=== PATIENT | male | born 1975 | race Hispanic/Latino ===

== ENCOUNTER 2017-07-07 23:27 | Inpatient (IN) | payer OTHER ==
[2017-07-07] MEDS ORDERED: MORPHINE 4 MG/ML SYR ONE (23:57)
[2017-07-07] MEDS ORDERED: ONDANSETRON 4 MG/2 ML VIAL ONE (23:57)
[2017-07-07] MEDS ORDERED: NA CHLORIDE 0.9% 1,000 ML ONE (23:58)
[2017-07-08 00:02] LABS: Absolute Lymphocytes (CBC) 2.2 K/uL (0.7-4.9); Absolute Monocytes 0.5 K/uL (0.1-1.3); Absolute Neutrophil 6.3 K/uL (1.8-8.0); Basophils % 0.6 % (0-1.3); Eosinophils % 0.9 % (0-4.4); Lymphocytes % 24.5 % (15.3-44.8); MCV 81.4 fL (80-100); MPV 10.4 fL (7.6-11.3); Monocytes % 5.4 % (3.3-12.3); RBC Red Blood Cell Count 4.92 M/uL (4.33-5.43)
[2017-07-08 00:17] LABS: Bicarbonate 23 mEq/L (21-31); Glucose Level 270 mg/dL (65-120); Lipase 84 U/L (22-51); Potassium 3.9 mEq/L (3.6-5.0); Sodium Level 132 mEq/L (135-145)
[2017-07-08 00:25] LABS: ALT/SGPT 49 IU/L (10-60); AST/SGOT 32 IU/L (10-42); Albumin 4.5 g/dL (3.2-5.5); Alkaline Phosphatase 52 IU/L (42-121); BUN Blood Urea Nitrogen 18 mg/dL (6-20); Bilirubin Direct < 0.1 mg/dL (0-0.2); Bilirubin Total 0.5 mg/dL (0.3-1.2); Protein, Total 7.8 g/dL (6.0-8.3)
[2017-07-08 00:26] LABS: Amylase Level 222 U/L (28-100)
[2017-07-08 02:08] LABS: Urine Blood NEGATIVE (NEG); Urine Glucose 2+ (NEG); Urine Protein NEGATIVE (NEG); Urine pH 5.5 (5.0-7.0)
[2017-07-08] MEDS ORDERED: ONDANSETRON 4 MG/2 ML VIAL ONE (02:27)
[2017-07-08] MEDS ORDERED: MORPHINE 4 MG/ML SYR ONE (02:27)
[2017-07-08] MEDS ORDERED: NA CHLORIDE 0.9% 1,000 ML ONE (02:27)
--- NOTE | 2017-07-08 02:27 | EDPHYS ---
Physician Documentation [facility] Name: Javier Rutherford Age: 42 yrs Sex: Male : 1975 Arrival Date: 07/07/2017 Time: 23:28 Bed 26 Private MD: ED Physician Marek Rabago HPI: 07/07 23:44 This 42 yrs old Male presents to ER via Ambulatory with complaints of kb Abdominal Pain. 23:44 The patient presents with abdominal pain in the right upper quadrant. Onset: The kb symptoms/episode began/occurred today. The symptoms do not radiate. Associated signs and symptoms: none. The symptoms are described as constant, sharp. Modifying factors: The symptoms are alleviated by nothing, the symptoms are aggravated by nothing. Severity of pain: At its worst the pain was moderate in the emergency department the pain is unchanged. The patient has experienced similar episodes in the past, several times. The patient has not recently seen a physician. Historical: - Allergies: 23:39 No Known Allergies; aa1 - Home Meds: 23:39 fenofibrate 200 mg Oral tab 1 cap once daily [Active]; metformin 1,000 mg oral tab 1 aa1 tab 2 times per day [Active]; Tresiba FlexTouch U-100 subcutaneous subcutaneous [Active]; - PMHx: 23:39 Diabetes - NIDDM; fatty liver; Hyperlipidemia; Pancreatitis; aa1 - PSHx: 23:39 Hernia repair; Cholecystectomy; aa1 - Immunization history:: Flu vaccine is up to date. - Social history:: Smoking status: Patient/guardian denies using tobacco. ROS: 23:43 Constitutional: Negative for fever, chills, and weight loss, Cardiovascular: Negative kb for chest pain, palpitations, and edema, Respiratory: Negative for shortness of breath, cough, wheezing, and pleuritic chest pain, Back: Negative for injury and pain, : Negative for injury, bleeding, discharge, and swelling, MS/Extremity: Negative for injury and deformity, Skin: Negative for injury, rash, and discoloration, Neuro: Negative for headache, weakness, numbness, tingling, and seizure. 23:43 Abdomen/GI: Positive for abdominal pain, Negative for nausea, vomiting, and diarrhea, constipation, abdominal cramps, abdominal distension, anorexia. Exam: 23:43 Constitutional: This is a well developed, well nourished patient who is awake, alert, kb and in no acute distress. Head/Face: Normocephalic, atraumatic. Chest/axilla: Normal chest wall appearance and motion. Nontender with no deformity. No lesions are appreciated. Cardiovascular: Regular rate and rhythm with a normal S1 and S2. No gallops, murmurs, or rubs. Normal PMI, no JVD. No pulse deficits. Respiratory: Lungs have equal breath sounds bilaterally, clear to auscultation and percussion. No rales, rhonchi or wheezes noted. No increased work of breathing, no retractions or nasal flaring. Skin: Warm, dry with normal turgor. Normal color with no rashes, no lesions, and no evidence of cellulitis. MS/ Extremity: Pulses equal, no cyanosis. Neurovascular intact. Full, normal range of motion. Neuro: Awake and alert, GCS 15, oriented to person, place, time, and situation. Cranial nerves II-XII grossly intact. Motor strength 5/5 in all extremities. Sensory grossly intact. Cerebellar exam normal. Normal gait. 23:43 Abdomen/GI: Inspection: abdomen appears normal, Bowel sounds: normal, in all quadrants, Palpation: soft, in all quadrants, moderate abdominal tenderness, in the right upper quadrant. Vital Signs: 23:39 BP 161 / 97; Pulse 81; Resp 18; Temp 98.3; Pulse Ox 100% on R/A; Weight 99.79 kg; aa1 Height 5 ft. 8 in. (172.72 cm); Pain 10/10; 05 00:09 BP 132 / 86; Pulse 85; Resp 18; Pulse Ox 97% on R/A; tl3 01:00 BP 124 / 84; Pulse 79; Resp 17; Pulse Ox 98% on R/A; rk2 02:35 BP 129 / 92; Pulse 79; Resp 18; Pulse Ox 99% ; rk2 03:06 BP 121 / 77; Pulse 77; Resp 17; Pulse Ox 98% on R/A; rk2 07/07 23:39 Body Mass Index 33.45 (99.79 kg, 172.72 cm) aa1 MDM: 07/07 23:39 Patient medically screened. kb 23:43 Data reviewed: vital signs, nurses notes. Data interpreted: Pulse oximetry: on room air kb is 100 %. Interpretation: normal. 07/08 02:21 Counseling: I had a detailed discussion with the patient and/or guardian regarding: the kb historical points, exam findings, and any diagnostic results supporting the discharge/admit diagnosis, lab results, radiology results, the need for further work-up and treatment in the hospital. 02:25 Physician consultation: Yamil Scott MD was contacted at 02:25, regarding admission, kb to the medical/surgical unit. patient's condition, and will see patient in ED, shortly. 07/07 23:39 Order name: Creatinine for Radiology; Complete Time: 00:27 kb 07/07 23:39 Order name: Amylase, Serum; Complete Time: 00:27 kb 07/07 23:39 Order name: Basic Metabolic Panel; Complete Time: 00:27 kb 07/07 23:39 Order name: CBC with Diff; Complete Time: 00:05 kb 07/07 23:39 Order name: Hepatic Function; Complete Time: 00:27 kb 07/07 23:39 Order name: Lipase; Complete Time: 00:27 kb 07/07 23:42 Order name: CT Abd/Pelvis - W/Contrast; Complete Time: 15:10 kb 07/08 01:51 Order name: Urine Dipstick--Ancillary (enter results); Complete Time: 02:12 em1 07/08 02:25 Order name: Lipid Profile; Complete Time: 15:10 kb 07/08 02:27 Order name: Triglycerides Level EDOK 07/07 23:39 Order name: IV Saline Lock; Complete Time: 23:49 kb 07/07 23:39 Order name: Labs collected and sent; Complete Time: 23:49 kb 07/07 23:39 Order name: Urine Dipstick-Ancillary (obtain specimen); Complete Time: 01:49 kb Administered Medications: 00:07 Drug: morphine 4 mg Route: IVP; Infused Over: 3 mins; Site: left antecubital; tl3 02:22 Follow up: Response: No adverse reaction rk2 00:08 Drug: NS 0.9% 1000 ml Route: IV; Rate: 1000 ml; Site: left antecubital; Delivery: tl3 Primary tubing; 00:08 Drug: Zofran 4 mg Route: IVP; Infused Over: 2 mins; Site: left antecubital; tl3 02:22 Follow up: Response: No adverse reaction rk2 02:33 Drug: NS 0.9% 1000 ml Route: IV; Rate: 125 ml/hr; Site: left antecubital; rk2 03:23 Follow up: IV Status: Infusion continued upon admission rk2 02:34 Drug: morphine 4 mg Route: IVP; Site: left antecubital; rk2 03:23 Follow up: Response: No adverse reaction; Pain is decreased rk2 02:34 Drug: Zofran 4 mg Route: IVP; Site: left antecubital; rk2 03:22 Follow up: Response: No adverse reaction; Pain is decreased rk2 Disposition: 07/07 23:47 Co-signature as Attending Physician, Marek Rabago MD. milad Disposition: 07/08/17 02:26 Hospitalization ordered by Yamil Scott for Inpatient Admission. Preliminary diagnosis is Acute pancreatitis. - Bed requested for Telemetry/MedSurg (Inpatient). - Status is Inpatient Admission. rk2 - Condition is Stable. - Problem is new. - Symptoms are unchanged. UTI on Admission? No Signatures: Dispatcher [employer] EDMS Sarah Costa, TRENCH DIGGER-C TRENCH DIGGER-Ckb Deborah Martins RN RN Carley Maier RN RN aa1 Marek Rabago MD MD pkl Anais Harper RN RN rk2 Tess Vallejo RN RN tl3
--- NOTE | 2017-07-08 02:27 | ER ---
Nurse's Notes [facility] Name: Javier Rutherford Age: 42 yrs Sex: Male : 1975 Arrival Date: 07/07/2017 Time: 23:28 Bed 26 Private MD: Diagnosis: Acute pancreatitis Presentation: 07/07 23:36 Presenting complaint: Patient states: upper abd pain since this afternoon. Reports hx aa1 of pancreatitis and feels like he's having another flare up. Transition of care: patient was not received from another setting of care. Onset of symptoms was July 07, 2017. Initial Sepsis Screen: Does the patient meet any 2 criteria? No. Patient's initial sepsis screen is negative. Does the patient have a suspected source of infection? No. Patient's initial sepsis screen is negative. Care prior to arrival: None. 23:36 Method Of Arrival: Ambulatory aa1 23:36 Acuity: HANY 3 aa1 Historical: - Allergies: 23:39 No Known Allergies; aa1 - Home Meds: 23:39 fenofibrate 200 mg Oral tab 1 cap once daily [Active]; metformin 1,000 mg oral tab 1 aa1 tab 2 times per day [Active]; Tresiba FlexTouch U-100 subcutaneous subcutaneous [Active]; - PMHx: 23:39 Diabetes - NIDDM; fatty liver; Hyperlipidemia; Pancreatitis; aa1 - PSHx: 23:39 Hernia repair; Cholecystectomy; aa1 - Immunization history:: Flu vaccine is up to date. - Social history:: Smoking status: Patient/guardian denies using tobacco. Screenin:46 Abuse screen: Denies threats or abuse. Nutritional screening: No deficits noted. tl3 Tuberculosis screening: No symptoms or risk factors identified. Fall Risk None identified. Assessment: 23:46 General: Appears distressed, uncomfortable, well groomed, well developed, well tl3 nourished, Behavior is cooperative, appropriate for age, anxious, restless. Pain: Complains of pain in right upper quadrant Pain currently is 10 out of 10 on a pain scale. Neuro: Level of Consciousness is awake, alert, obeys commands, Oriented to person, place, time, situation, Appropriate for age. Cardiovascular: No deficits noted. Heart tones S1 S2 present Patient's skin is warm and dry. Respiratory: Airway is patent Trachea midline Respiratory effort is even, unlabored, Respiratory pattern is regular, symmetrical. GI: Abdomen is round Bowel sounds present X 4 quads. Abdomen is tender to palpation in right upper quadrant and left upper quadrant. : No signs and/or symptoms were reported regarding the genitourinary system. EENT: No signs and/or symptoms were reported regarding the EENT system. Derm: No signs and/or symptoms reported regarding the dermatologic system. Musculoskeletal: No signs and/or symptoms reported regarding the musculoskeletal system. 07/08 00:09 Reassessment: Patient appears in no apparent distress at this time. No changes from tl3 previously documented assessment. Patient and/or family updated on plan of care and expected duration. Pain level reassessed. Patient is alert, oriented x 3, equal unlabored respirations, skin warm/dry/pink. fluids initiated, pt resting. 01:10 Reassessment: Pt. taken to CT by wheelchair. rk2 02:20 Reassessment: Pt. resting in room \T\ this time... c/o abd pain, same left upper quad rk2 pain that he has had. Denies N/V. Waiting on results. 03:31 Reassessment: Called report to receiving ARACELI Dixon. Pt. to be transported to room 431.rk2 Vital Signs: 07/07 23:39 BP 161 / 97; Pulse 81; Resp 18; Temp 98.3; Pulse Ox 100% on R/A; Weight 99.79 kg; aa1 Height 5 ft. 8 in. (172.72 cm); Pain 10/10; 07/08 00:09 BP 132 / 86; Pulse 85; Resp 18; Pulse Ox 97% on R/A; tl3 01:00 BP 124 / 84; Pulse 79; Resp 17; Pulse Ox 98% on R/A; rk2 02:35 BP 129 / 92; Pulse 79; Resp 18; Pulse Ox 99% ; rk2 03:06 BP 121 / 77; Pulse 77; Resp 17; Pulse Ox 98% on R/A; rk2 07/07 23:39 Body Mass Index 33.45 (99.79 kg, 172.72 cm) aa1 ED Course: 07/07 23:28 Patient arrived in ED. al2 23:38 Triage completed. aa1 23:39 Sarah Costa FNP-C is PHCP. kb 23:39 Marek Rabago MD is Attending Physician. kb 23:39 Arm band placed on right wrist. Patient placed in an exam room, on a stretcher. aa1 23:46 Tess Vallejo RN is Primary Nurse. tl3 23:46 Appears restless. Awaiting ED provider evaluation. tl3 23:46 Patient has correct armband on for positive identification. Placed in gown. Bed in low tl3 position. Call light in reach. Side rails up X 1. Warm blanket given. 23:46 No provider procedures requiring assistance completed. Inserted saline lock: 22 gauge tl3 in left antecubital area, using aseptic technique. Blood collected. 05 01:10 CT Abd/Pelvis - W/Contrast Sent. rk2 01:21 CT Abd/Pelvis - W/Contrast In Process Unspecified. EDMS 01:28 CT completed. Patient tolerated procedure well. Patient moved to CT via wheelchair. eh Patient moved back from CT. 02:26 Yamil Scott MD is Hospitalizing Provider. kb 02:43 Triglycerides Level Sent. rk2 03:34 Patient admitted, IV remains in place. rk2 Administered Medications: 00:07 Drug: morphine 4 mg Route: IVP; Infused Over: 3 mins; Site: left antecubital; tl3 02:22 Follow up: Response: No adverse reaction rk2 00:08 Drug: NS 0.9% 1000 ml Route: IV; Rate: 1000 ml; Site: left antecubital; Delivery: tl3 Primary tubing; 00:08 Drug: Zofran 4 mg Route: IVP; Infused Over: 2 mins; Site: left antecubital; tl3 02:22 Follow up: Response: No adverse reaction rk2 02:33 Drug: NS 0.9% 1000 ml Route: IV; Rate: 125 ml/hr; Site: left antecubital; rk2 03:23 Follow up: IV Status: Infusion continued upon admission rk2 02:34 Drug: morphine 4 mg Route: IVP; Site: left antecubital; rk2 03:23 Follow up: Response: No adverse reaction; Pain is decreased rk2 02:34 Drug: Zofran 4 mg Route: IVP; Site: left antecubital; rk2 03:22 Follow up: Response: No adverse reaction; Pain is decreased rk2 Outcome: 02:26 Decision to Hospitalize by Provider. kb 03:33 Condition: good rk2 03:33 Instructed on the need for admit. 03:34 Admitted to Med/surg accompanied by tech. rk2 03:40 Patient left the ED. rk2 Signatures: Dispatcher [employer] EDMS Sarah Costa, RUNNER WORKER-C RUNNER WORKER-CkCarley Rodgers, RN RN aa1 Herbert Sanabria Angelica al2 Kidder, Rhonda RN RN rk2 Tess Vallejo RN RN tl3
[2017-07-08 03:47] VITALS: O2SAT 98
[2017-07-08 03:48] LABS: HDL Cholesterol 32 mg/dL (27-67); LDL Cholesterol, Calculated ND (<130)
[2017-07-08] MEDS ORDERED: NA CHLORIDE 0.9% 1,000 ML IV SCH (04:00)
[2017-07-08 04:13] LABS: LDL, Direct 14 mg/dl (<130)
[2017-07-08] MEDS ORDERED: KETOROLAC 30 MG/ML INJ IV PRN (04:43)
[2017-07-08] MEDS ORDERED: D5 0.9 NS 1,000 ML IV SCH (05:00)
--- NOTE | 2017-07-08 05:00 | P.HP ---
Certification for Inpatient Patient admitted to: Inpatient With expected LOS: >2 Midnights Practitioner: I am a practitioner with admitting privileges, knowledge of patient current condition, hospital course, and medical plan of care. Services: Services provided to patient in accordance with Admission requirements found in Title 42 Section 412.3 of the Code of Federal Regulations Patient History Date of Service: 07/08/17 Reason for admission: acute pancreatitis History of Present Illness: Mr Garland is a 42 years old male with history of hypertriclyceridemia induce pancreatitis, DM II, who start yesterday afternoon, with epigastric pain, radiated to his left upper quadrant. He has had this pain in the past. It was associated with nausea, but not vomiting. The patient denied any alcohol intake. He also denied fever or chills, no diarrhea. At arrival the patient was very symptomatic for pain. CT abd/pelvis remarkable for acute pancreatitis, lipase and amylase elevated, triglycerides also elevated 2250. Allergies No Known Allergies Allergy (Verified 08/30/14 22:32) Home Medications: Metformin HCl [Glucophage] 1,000 mg PO BID 11/06/13 Fenofibrate [Tricor*] 160 mg PO DAILY #30 tab 11/18/16 Pantoprazole [Protonix Tab] 40 mg PO DAILY #30 tab 11/18/16 - Past Medical/Surgical History Diabetic: Yes -: pancreatitis -: hyperlipidemia -: DM2 -: pancreatic mass -: Cholecystectomy -: Hernia sx -: vasectomy - Family History Sister -: Diabetes, Cancer Mother -: Diabetes Brother -: GI disease, Diabetes Notes: Pancreatitis - Social History Alcohol use: No CD- Drugs: No Caffeine use: Yes Place of Residence: Home Review of Systems 10-point ROS is otherwise unremarkable Physical Examination - Vital Signs Temperature: 97.6 F Blood Pressure: 120/74 Pulse: 73 Respirations: 18 Pulse Ox (%): 98 - Physical Exam General: Alert, In no apparent distress HEENT: Atraumatic, PERRLA, Mucous membr. moist/pink, EOMI, Sclerae nonicteric Neck: Supple, 2+ carotid pulse no bruit, No LAD, Without JVD or thyroid abnormality Respiratory: Clear to auscultation bilaterally, Normal air movement Cardiovascular: Regular rate/rhythm, Normal S1 S2 Gastrointestinal: Hypoactive, Tenderness (epigastric and LUQ) Musculoskeletal: No tenderness Integumentary: No rashes Neurological: Normal speech, Normal strength at 5/5 x4 extr, Normal tone, Normal affect Lymphatics: No axilla or inguinal lymphadenopathy - Studies Laboratory Data (last 24 hrs) 07/07/17 23:50: WBC 9.1, Hgb 13.8, Hct 40.0, Plt Count 216 07/07/17 23:50: Sodium 132 L, Potassium 3.9, BUN 18, Creatinine 0.86, Glucose 270 H, Total Bilirubin 0.5, AST 32, ALT 49, Alkaline Phosphatase 52, Amylase 222 H*, Lipase 84 H 07/07/17 23:50: Creatinine 0.78 Assessment and Plan - Problems (Diagnosis) (1) hypertriglyceridemia induce pancreatitis Current Visit: Yes Status: Acute (2) Diabetes mellitus Onset Date: 11/14/16 Current Visit: No Status: Chronic Qualifiers: Diabetes mellitus type: type 2 Diabetes mellitus fpc insulin use: without marine oil terminal superintendent use Diabetes mellitus complication status: with unspecified complications Qualified Code(s): E11.8 - Type 2 diabetes mellitus with unspecified complications - Plan The patient will be admitted to the hospital due to hypertriclyceridemia induce pancreatitis. Will admit the patient to ICU, to start insulin drip, in order to decrease triglyceride levels below 500. Will continue fenofibrates. Continue symptomatic medication for pain and nausea. - Advance Directives Does patient have a Living Will: No Does patient have a Durable POA for Healthcare: No - Code Status/Comfort Care Code Status Assessed: Yes Code Status: Full Code
[2017-07-08] MEDS ORDERED: GLUCAGON 1 MG/VIAL IM PRN ×2 (05:10→05:36)
[2017-07-08] MEDS ORDERED: INSULIN -REGULAR HUMAN 50 UNIT/0.5 ML ML IV SCH (05:10)
[2017-07-08] MEDS ORDERED: D50W 25 GM/50 ML SYRINGE IV PRN (05:36)
[2017-07-08] MEDS: INSULIN -REGULAR HUMAN 50 UNIT/0.5 ML ML SQ SCH ×4 (05:50→23:39)
[2017-07-08] MEDS ORDERED: NA CHLORIDE 0.9% 100 ML ONE (06:27)
[2017-07-08] MEDS: INSULIN -REGULAR HUMAN 100 UNIT in NA CHLORIDE 0.9% 100 ML IV SCH ×3 (06:38→20:32)
--- NOTE | 2017-07-08 06:59 | RAD REPORT ---
EXAM DESCRIPTION: CT - Abdomen Pelvis W Contrast - 07/08/2017 4:07 am CLINICAL HISTORY: Abdominal pain, left upper quadrant pain, history of pancreatitis, diabetes, fatty liver disease, hernia repair and cholecystectomy. A preliminary written report was provided at the time of the study, and the report was reviewed prio r to final dictation. COMPARISON: CT study August 2016 TECHNIQUE: Biphasic, helical CT imaging of the abdomen and pelvis was performed following 100 ml non -ionic IV contrast. No oral contrast given. All CT scans are performed using dose optimization technique as appropriate and may include automated exposure control or mA/KV adjustment according to patient size. FINDINGS: No suspicious findings in the lung bases. Prominent diffuse fatty infiltration pattern again noted. No focal liver lesions seen. No splenomegal y or focal splenic finding. Cholecystectomy clips are present with no biliary tree dilatation. No gigi id or cystic pancreatic mass identified. There is a very subtle stranding or edema in the peripancrea tic fat near the body. Similar pattern was seen in 2017. A very mild acute pancreatitis would be poss ible ; however, this would need confirmation with abnormal lab values or matching clinical findings. Symmetric renal function is seen with no hydronephrosis or suspicious renal mass. No pyelonephritis o r acute renal parenchymal process. Urinary bladder, prostate gland and seminal vesicles normal. No dilated bowel loops. Moderate stool volume seen in otherwise unremarkable colon. No appendicitis. A few minimally prominent fluid-filled distal small bowel loops are present a few prominent proximal small bowel loops. Pattern is nonspecific but can indicate minimal enteritis. No free air, free fluid or other focal inflammatory stranding. No hernia, mass or bulky lymphadeno sofya. No adrenal abnormality. No suspicious bony findings. IMPRESSION: Trace amount of stranding is seen in the peripancreatic fat without solid or cystic panc reatic mass. Finding may reflect very early or mild pancreatitis, but this needs correlation with clinical present ation and laboratory findings. Diffuse fatty infiltration of the liver as previously noted. No focal liver lesions seen. Minimal prominence of small bowel loops. Small bowel enteritis is possible.
[2017-07-08] MEDS: ENOXAPARIN 40 MG/0.4 ML SQ SCH (08:38)
[2017-07-08] MEDS: FENOFIBRATE 160 MG TAB PO SCH (08:38)
[2017-07-08] MEDS: Morphine 2 MG/2 ML SYR IV PRN ×4 (09:58→22:33)
[2017-07-08] MEDS: D50W 25 GM/50 ML SYRINGE IV PRN ×7 (09:59→22:28)
[2017-07-08] MEDS: ONDANSETRON 4 MG/2 ML VIAL IV PRN ×2 (10:03→17:31)
[2017-07-08] MEDS ORDERED: DEXTROSE 10%-WATER 500 ML IV SCH (12:30)
[2017-07-08] MEDS: DEXTROSE 10%-WATER 500 ML IV SCH ×3 (13:35→20:33)
--- NOTE | 2017-07-08 13:57 | P.PN ---
Subjective Date of Service: 07/08/17 Chief Complaint: acute pancreatitis Subjective: Improving, Other (pain much better. denies any nausea or vomiting) Review of Systems 10-point ROS is otherwise unremarkable Physical Examination - Vital Signs Temperature: 97.6 F Blood Pressure: 108/65 Pulse: 71 Respirations: 14 Pulse Ox (%): 96 - Physical Exam General: Alert, In no apparent distress, Oriented x3 HEENT: Atraumatic, Normocephalic, EOMI Neck: Supple, JVD not distended, No Thyromegaly, No LAD Respiratory: Clear to auscultation bilaterally, Normal air movement Cardiovascular: No edema, Normal pulses, Regular rate/rhythm, Normal S1 S2 Gastrointestinal: Normal bowel sounds, Soft and benign, W/out hepatosplenomegaly , Tenderness (around epigastric region) Integumentary: No breakdown, No tenderness/swelling, No erythema, No warmth Neurological: Normal speech, Normal strength at 5/5 x4 extr - Studies Laboratory Data (last 24 hrs) 07/07/17 23:50: WBC 9.1, Hgb 13.8, Hct 40.0, Plt Count 216 07/07/17 23:50: Sodium 132 L, Potassium 3.9, BUN 18, Creatinine 0.86, Glucose 270 H, Total Bilirubin 0.5, AST 32, ALT 49, Alkaline Phosphatase 52, Amylase 222 H*, Lipase 84 H 07/07/17 23:50: Creatinine 0.78 Assessment And Plan - Current Problems (Diagnosis) (1) Acute pancreatitis Onset Date: 03/21/14 Current Visit: No Status: Acute Qualifiers: Pancreatitis type: other Acute pancreatitis complication: no infection or necrosis Qualified Code(s): K85.80 - Other acute pancreatitis without necrosis or infection (2) hypertriglyceridemia induce pancreatitis Onset Date: 07/08/17 Current Visit: Yes Status: Acute (3) Hypertriglyceridemia Onset Date: 11/14/16 Current Visit: No Status: Chronic - Plan continue insulin gtt at 0.1units/kg/hour continue to monitor blood glucose q hour change IV fluid to d10 at current rate check TG level [id number], goal is <500 will d/c insulin and continue statins continue IV hydration switch to morphin po anti emetics prn Discharge Plan: Home - Code Status/Comfort Care Code Status Assessed: Yes Code Status: Full Code Physician Review: Patient Assessed, Agree with Above Assessment and Plan Time Spent Managing PTS Care (In Minutes): 30
[2017-07-08 16:14] LABS: LDL, Direct 43 mg/dl (<130)
[2017-07-09] MEDS: D50W 25 GM/50 ML SYRINGE IV PRN ×5 (00:42→10:57)
[2017-07-09] MEDS: DEXTROSE 10%-WATER 500 ML IV SCH ×4 (00:43→12:41)
[2017-07-09 02:52] LABS: LDL, Direct 63 mg/dl (<130)
[2017-07-09 05:47] LABS: ALT/SGPT 95 IU/L (10-60); AST/SGOT 90 IU/L (10-42); Albumin 3.5 g/dL (3.2-5.5); Alkaline Phosphatase 39 IU/L (42-121); Amylase Level 59 U/L (28-100); BUN Blood Urea Nitrogen 8 mg/dL (6-20); Bicarbonate 26 mEq/L (21-31); Bilirubin Total 0.5 mg/dL (0.3-1.2); Glucose Level 125 mg/dL (65-120); Lipase 26 U/L (22-51); Magnesium 1.9 mg/dL (1.8-2.5); Protein, Total 6.3 g/dL (6.0-8.3); Sodium Level 138 mEq/L (135-145)
[2017-07-09] MEDS: INSULIN -REGULAR HUMAN 50 UNIT/0.5 ML ML SQ SCH ×4 (05:58→21:00)
[2017-07-09 06:35] LABS: Absolute Lymphocytes (CBC) 1.2 K/uL (0.7-4.9); Absolute Monocytes 0.5 K/uL (0.1-1.3); Absolute Neutrophil 3.8 K/uL (1.8-8.0); Basophils % 0.5 % (0-1.3); Eosinophils % 2.5 % (0-4.4); Hematocrit 35.4 % (39.6-49.0); Lymphocytes % 21.8 % (15.3-44.8); MCH 27.1 pg (27.0-35.0); MPV 10.1 fL (7.6-11.3); Monocytes % 8.2 % (3.3-12.3); RBC Red Blood Cell Count 4.32 M/uL (4.33-5.43)
[2017-07-09] MEDS: ENOXAPARIN 40 MG/0.4 ML SQ SCH (08:34)
[2017-07-09] MEDS: KCL 20 MEQ/100 mL IVPB 20 MEQ/100 ML BAG IV SCH ×2 (08:34→12:43)
[2017-07-09] MEDS: FENOFIBRATE 160 MG TAB PO SCH (08:34)
[2017-07-09] MEDS: ONDANSETRON 4 MG/2 ML VIAL IV PRN (08:49)
[2017-07-09] MEDS: Morphine 2 MG/2 ML SYR IV PRN ×4 (08:49→22:56)
--- NOTE | 2017-07-09 10:52 | P.PN ---
Subjective Date of Service: 07/09/17 Chief Complaint: acute pancreatitis Subjective: Improving (pain scale at 5/10) Review of Systems 10-point ROS is otherwise unremarkable Physical Examination - Vital Signs Temperature: 97.7 F Blood Pressure: 117/81 Pulse: 65 Respirations: 13 Pulse Ox (%): 99 - Physical Exam General: Alert, In no apparent distress, Oriented x3 HEENT: Atraumatic, Normocephalic, PERRLA Neck: Supple, JVD not distended, No Thyromegaly, No LAD Respiratory: Clear to auscultation bilaterally, Normal air movement Cardiovascular: No edema, Normal pulses, Regular rate/rhythm, Normal S1 S2, No gallops, No rubs, No murmurs Gastrointestinal: Normal bowel sounds, Soft and benign, Non-distended, W/out hepatosplenomegaly, No ascites, No tenderness, No masses, No rebound, No guarding Musculoskeletal: No clubbing, No swelling, No contractures, No erythema, No tenderness, No warmth Assessment And Plan - Current Problems (Diagnosis) (1) Acute pancreatitis Onset Date: 03/21/14 Current Visit: No Status: Acute Plan: start clear liquids continue to monitor TG level continue insulin gtt until TG <500 continue hypoglycemic protocol pain control IV Hydration Qualifiers: Pancreatitis type: other Acute pancreatitis complication: no infection or necrosis Qualified Code(s): K85.80 - Other acute pancreatitis without necrosis or infection (2) hypertriglyceridemia induce pancreatitis Onset Date: 07/08/17 Current Visit: Yes Status: Acute (3) Hypertriglyceridemia Onset Date: 11/14/16 Current Visit: No Status: Chronic Plan: continue Statin - Plan continue insulin gtt at 0.1units/kg/hour continue to monitor blood glucose q hour change IV fluid to d10 at current rate check TG level [id number], goal is <500 will d/c insulin and continue statins continue IV hydration switch to morphin po anti emetics prn Discharge Plan: Home Plan to discharge in: 48 Hours - Code Status/Comfort Care Code Status Assessed: Yes Code Status: Full Code Physician Review: Patient Assessed, Agree with Above Assessment and Plan Time Spent Managing PTS Care (In Minutes): 35
[2017-07-09 11:35] LABS: Urine Appearance CLEAR; Urine Bilirubin NEGATIVE (NEG); Urine Blood NEGATIVE (NEG); Urine Color YELLOW; Urine Glucose TRACE (NEG); Urine Protein NEGATIVE (NEG); Urine Specific Gravity <=1.005 (1.005-1.030); Urine Urobilinogen 0.2 mg/dL (0.2-1.0)
[2017-07-09 11:38] LABS: Urine Microscopic Reflex NO UMIC
[2017-07-09] MEDS: INSULIN -REGULAR HUMAN 100 UNIT in NA CHLORIDE 0.9% 100 ML IV SCH (13:34)
[2017-07-09 15:55] LABS: LDL, Direct 94 mg/dl (<130)
[2017-07-09] MEDS ORDERED: D5 0.45 NS 1,000 ML IV SCH (16:00)
[2017-07-09] MEDS: D5W 1,000 ML IV SCH (17:11)
[2017-07-10] MEDS: D5W 1,000 ML IV SCH ×4 (01:00→19:54)
[2017-07-10] MEDS: Morphine 2 MG/2 ML SYR IV PRN ×4 (02:56→19:53)
[2017-07-10 06:00] LABS: LDL, Direct 125 mg/dl (<130)
[2017-07-10] MEDS: INSULIN -REGULAR HUMAN 50 UNIT/0.5 ML ML SQ SCH ×4 (07:30→21:00)
[2017-07-10] MEDS: ENOXAPARIN 40 MG/0.4 ML SQ SCH (07:53)
[2017-07-10] MEDS: FENOFIBRATE 160 MG TAB PO SCH (07:53)
[2017-07-10 15:15] LABS: LDL, Direct 122 mg/dl (<130)
--- NOTE | 2017-07-10 17:27 | P.PN ---
Subjective Date of Service: 07/10/17 Chief Complaint: acute pancreatitis Subjective: Improving Review of Systems 10-point ROS is otherwise unremarkable Physical Examination - Vital Signs Temperature: 97.6 F Blood Pressure: 132/86 Pulse: 81 Respirations: 15 Pulse Ox (%): 100 - Physical Exam General: Alert, In no apparent distress, Oriented x3, Cooperative HEENT: Atraumatic, Normocephalic, PERRLA Neck: Supple, JVD not distended, No Thyromegaly, No LAD Respiratory: Clear to auscultation bilaterally, Normal air movement Cardiovascular: No edema, Normal pulses, Regular rate/rhythm, Normal S1 S2, No gallops, No rubs, No murmurs Gastrointestinal: Normal bowel sounds, Soft and benign, Non-distended, W/out hepatosplenomegaly, No ascites, No tenderness, No masses, No rebound, No guarding Musculoskeletal: No clubbing, No swelling, No contractures, No erythema, No tenderness, No warmth Neurological: Normal gait, Normal speech, Normal strength at 5/5 x4 extr, Normal tone Assessment And Plan - Current Problems (Diagnosis) (1) Acute pancreatitis Onset Date: 03/21/14 Current Visit: No Status: Acute Plan: continue clear liquids advance diet continue to monitor TG level continue statin pain control IV Hydration Qualifiers: Pancreatitis type: other Acute pancreatitis complication: no infection or necrosis Qualified Code(s): K85.80 - Other acute pancreatitis without necrosis or infection (2) Hypertriglyceridemia Onset Date: 11/14/16 Current Visit: No Status: Chronic Plan: continue tricor Discharge Plan: Home Plan to discharge in: 48 Hours Physician Review: Patient Assessed, Agree with Above Assessment and Plan Time Spent Managing PTS Care (In Minutes): 30
[2017-07-11] MEDS: Morphine 2 MG/2 ML SYR IV PRN ×4 (00:51→21:15)
[2017-07-11 04:35] LABS: LDL, Direct 107 mg/dl (<130)
[2017-07-11] MEDS: INSULIN -REGULAR HUMAN 50 UNIT/0.5 ML ML SQ SCH ×4 (07:30→21:00)
[2017-07-11] MEDS: D5W 1,000 ML IV SCH ×2 (09:00→16:52)
[2017-07-11] MEDS: ONDANSETRON 4 MG/2 ML VIAL IV PRN ×2 (09:01→21:17)
[2017-07-11] MEDS: ENOXAPARIN 40 MG/0.4 ML SQ SCH (09:01)
[2017-07-11] MEDS: FENOFIBRATE 160 MG TAB PO SCH (09:01)
--- NOTE | 2017-07-11 12:48 | P.PN ---
Subjective Date of Service: 07/11/17 Chief Complaint: acute pancreatitis Subjective: No new changes (abdominal pain still at 5/10.) Review of Systems 10-point ROS is otherwise unremarkable Physical Examination - Vital Signs Temperature: 98.4 F Blood Pressure: 94/62 Pulse: 66 Respirations: 18 Pulse Ox (%): 98 - Physical Exam General: Alert, In no apparent distress, Oriented x3 HEENT: Atraumatic, Normocephalic Neck: Supple, JVD not distended, No Thyromegaly, No LAD Respiratory: Clear to auscultation bilaterally, Normal air movement Cardiovascular: No edema, Normal pulses, Regular rate/rhythm, Normal S1 S2 Gastrointestinal: Normal bowel sounds, Soft and benign, No ascites, No masses, No rebound, No guarding, Tenderness (more qround the RUQ and LUQ) Musculoskeletal: No clubbing, No swelling, No contractures, No erythema, No tenderness Neurological: Normal speech, Normal strength at 5/5 x4 extr, Normal tone, Sensation intact Assessment And Plan - Current Problems (Diagnosis) (1) Acute pancreatitis Onset Date: 03/21/14 Current Visit: No Status: Acute Plan: TG level remains elevated npo for now continue to monitor TG level continue tricor pain control IV Hydration Qualifiers: Pancreatitis type: other Acute pancreatitis complication: no infection or necrosis Qualified Code(s): K85.80 - Other acute pancreatitis without necrosis or infection (2) Hypertriglyceridemia Onset Date: 11/14/16 Current Visit: No Status: Chronic Plan: continue tricor - Plan continue insulin gtt at 0.1units/kg/hour continue to monitor blood glucose q hour change IV fluid to d10 at current rate check TG level [id number], goal is <500 will d/c insulin and continue statins continue IV hydration switch to morphin po anti emetics prn Physician Review: Patient Assessed, Agree with Above Assessment and Plan Time Spent Managing PTS Care (In Minutes): 25
[2017-07-11 15:14] LABS: LDL, Direct 114 mg/dl (<130)
[2017-07-12] MEDS: D5W 1,000 ML IV SCH ×3 (00:38→17:00)
[2017-07-12] MEDS: Morphine 2 MG/2 ML SYR IV PRN ×3 (01:39→20:27)
[2017-07-12] MEDS: INSULIN -REGULAR HUMAN 50 UNIT/0.5 ML ML SQ SCH ×4 (07:30→21:00)
[2017-07-12] MEDS: ENOXAPARIN 40 MG/0.4 ML SQ SCH (08:33)
[2017-07-12] MEDS: FENOFIBRATE 160 MG TAB PO SCH (08:33)
[2017-07-12] MEDS: ONDANSETRON 4 MG/2 ML VIAL IV PRN (08:38)
[2017-07-12] MEDS ORDERED: HYDROCODONE/APAP 5/325 MG TAB PO PRN (08:44)
[2017-07-12 09:38] LABS: Absolute Lymphocytes (CBC) 1.4 K/uL (0.7-4.9); Absolute Monocytes 0.4 K/uL (0.1-1.3); Absolute Neutrophil 3.1 K/uL (1.8-8.0); Basophils % 0.3 % (0-1.3); Eosinophils % 2.4 % (0-4.4); Hematocrit 38.9 % (39.6-49.0); Lymphocytes % 27.2 % (15.3-44.8); MCH 27.2 pg (27.0-35.0); MCV 82.7 fL (80-100); MPV 9.4 fL (7.6-11.3); Monocytes % 8.1 % (3.3-12.3)
[2017-07-12 09:53] LABS: Potassium 4.2 mEq/L (3.6-5.0)
[2017-07-12 09:59] LABS: Bilirubin Total 1.2 mg/dL (0.3-1.2); Protein, Total 7.3 g/dL (6.0-8.3)
--- NOTE | 2017-07-12 13:19 | P.PN ---
Subjective Date of Service: 07/12/17 Chief Complaint: acute pancreatitis Subjective: No new changes (still with some abdominal pain) Review of Systems 10-point ROS is otherwise unremarkable Physical Examination - Vital Signs Temperature: 98 F Blood Pressure: 116/71 Pulse: 73 Respirations: 16 Pulse Ox (%): 99 - Physical Exam General: Alert, In no apparent distress, Oriented x3 HEENT: Atraumatic, Normocephalic, PERRLA Neck: Supple, 2+ carotid pulse no bruit, No Thyromegaly, No LAD Respiratory: Clear to auscultation bilaterally, Normal air movement Cardiovascular: No edema, Regular rate/rhythm, Normal S1 S2, No gallops, No rubs , No murmurs Gastrointestinal: Normal bowel sounds, Soft and benign, Non-distended, W/out hepatosplenomegaly, No ascites, No tenderness, No masses, No rebound, No guarding Neurological: Normal gait, Normal speech, Normal strength at 5/5 x4 extr, Normal tone Assessment And Plan - Current Problems (Diagnosis) (1) Acute pancreatitis Onset Date: 03/21/14 Current Visit: No Status: Acute Plan: TG level remains elevated npo for now continue tricor pain control IV Hydration Qualifiers: Pancreatitis type: other Acute pancreatitis complication: no infection or necrosis Qualified Code(s): K85.80 - Other acute pancreatitis without necrosis or infection (2) Hypertriglyceridemia Onset Date: 11/14/16 Current Visit: No Status: Chronic Plan: continue tricor - Plan continue insulin gtt at 0.1units/kg/hour continue to monitor blood glucose q hour change IV fluid to d10 at current rate check TG level [id number], goal is <500 will d/c insulin and continue statins continue IV hydration switch to morphin po anti emetics prn Physician Review: Patient Assessed, Agree with Above Assessment and Plan Time Spent Managing PTS Care (In Minutes): 25
[2017-07-13] MEDS: Morphine 2 MG/2 ML SYR IV PRN (00:20)
[2017-07-13] MEDS: D5W 1,000 ML IV SCH ×4 (00:21→23:42)
[2017-07-13] MEDS: INSULIN -REGULAR HUMAN 50 UNIT/0.5 ML ML SQ SCH ×4 (07:30→20:54)
[2017-07-13] MEDS: FENOFIBRATE 160 MG TAB PO SCH (08:23)
[2017-07-13] MEDS: ENOXAPARIN 40 MG/0.4 ML SQ SCH (08:24)
--- NOTE | 2017-07-13 13:35 | P.PN ---
Subjective Date of Service: 07/13/17 Chief Complaint: acute pancreatitis Subjective: Improving (abdominal pain improved to 2/10. minimla nausea) Review of Systems 10-point ROS is otherwise unremarkable Physical Examination - Vital Signs Temperature: 97.4 F Blood Pressure: 107/64 Pulse: 77 Respirations: 18 Pulse Ox (%): 96 - Physical Exam General: Alert, In no apparent distress, Oriented x3 HEENT: Atraumatic, Normocephalic, PERRLA Neck: Supple, JVD not distended, No Thyromegaly, No LAD Respiratory: Clear to auscultation bilaterally, Normal air movement Cardiovascular: No edema, Normal pulses, Regular rate/rhythm, Normal S1 S2 Gastrointestinal: Normal bowel sounds, Soft and benign, Non-distended, W/out hepatosplenomegaly, No ascites, No tenderness, No masses, No rebound, No guarding Musculoskeletal: No clubbing, No swelling, No contractures, No erythema, No tenderness, No warmth Neurological: Normal speech, Normal strength at 5/5 x4 extr, Normal tone Assessment And Plan - Current Problems (Diagnosis) (1) Acute pancreatitis Onset Date: 03/21/14 Current Visit: No Status: Acute Plan: symptoms improving will start on clear liquid diet now, advance as tolerated continue tricor pain control,add norco po IV Hydration Qualifiers: Pancreatitis type: other Acute pancreatitis complication: no infection or necrosis Qualified Code(s): K85.80 - Other acute pancreatitis without necrosis or infection (2) Hypertriglyceridemia Onset Date: 11/14/16 Current Visit: No Status: Chronic Plan: continue tricor - Plan continue insulin gtt at 0.1units/kg/hour continue to monitor blood glucose q hour change IV fluid to d10 at current rate check TG level [id number], goal is <500 will d/c insulin and continue statins continue IV hydration switch to morphin po anti emetics prn Discharge Plan: Home Plan to discharge in: 24 Hours Physician Review: Patient Assessed, Agree with Above Assessment and Plan Time Spent Managing PTS Care (In Minutes): 25
[2017-07-14 05:10] VITALS: BMI 32.9
[2017-07-14 05:10] LABS: Magnesium 1.8 mg/dL (1.8-2.5); Potassium 3.8 mEq/L (3.6-5.0)
[2017-07-14] MEDS ORDERED: MAGNESIUM SULFATE 1 gm IVPB 1 GM/100 ML BAG IV ONE (05:27)
[2017-07-14] MEDS ORDERED: POTASSIUM 25 MEQ EFFERV TAB PO ONE (05:28)
[2017-07-14] MEDS: D5W 1,000 ML IV SCH ×2 (06:19→09:48)
[2017-07-14] MEDS: INSULIN -REGULAR HUMAN 50 UNIT/0.5 ML ML SQ SCH ×2 (07:30→11:30)
[2017-07-14] MEDS: FENOFIBRATE 160 MG TAB PO SCH (09:48)
[2017-07-14] MEDS: ENOXAPARIN 40 MG/0.4 ML SQ SCH (09:48)
--- NOTE | 2017-07-14 11:55 | P.DS ---
Admission Date: 07/08/17 Discharge Date: 07/14/17 Primary Care Provider: Drew Baugh NP([facility]) Disposition: ROUTINE DISCHARGE Discharge Condition: GOOD Reason for Admission: acute pancreatitis Procedures: CT scan: IMPRESSION: Trace amount of stranding is seen in the peripancreatic fat without solid or cystic pancreatic mass. Finding may reflect very early or mild pancreatitis, but this needs correlation with clinical presentation and laboratory findings. Diffuse fatty infiltration of the liver as previously noted. No focal liver lesions seen. Minimal prominence of small bowel loops. Small bowel enteritis is possible. 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 Diabetes mellitus complication status: with other specified complication Qualified Code(s): E11.69 - Type 2 diabetes mellitus with other specified complication; Z79.4 - shelter (current) use of insulin (3) Fatty liver Onset Date: 11/14/16 Current Visit: No Status: Chronic (4) Hypertriglyceridemia Onset Date: 11/14/16 Current Visit: No Status: Acute (5) Obesity (BMI 30-39.9) Onset Date: 11/14/16 Current Visit: No Status: Chronic (6) GERD (gastroesophageal reflux disease) Current Visit: No Status: Suspected Qualifiers: Esophagitis presence: esophagitis presence not specified Qualified Code(s) : K21.9 - Gastro-esophageal reflux disease without esophagitis Brief History of Present Illness: 42-year-old male presented emergency room with abdominal pain, nausea. Patient with history of recurrent pancreatitis secondary to hypertriglyceridemia. Patient found to have elevated triglycerides. Patient also found to have on CT scan pancreatitis. The patient was admitted for treatment. Hospital Course: Patient presented with acute pancreatitis secondary to hypertriglyceridemia. Patient required ICU admission for insulin therapy to help reduce hypertriglyceridemia. Patient improved. Pancreatitis resolved. At discharge triglycerides were at 485. It was as high as 2250. At discharge he is without any significant nausea, vomiting, and abdominal pain. Patient is tolerating his diet. At discharge he will continue with [place] diabetic diet. Patient will continue with Fenofibrate 200 mg daily. Recommendation is to recheck lipid panel in 1 week to monitor his progress. Recommendation is for the patient to follow up with GI to further monitor and address. Patient has diabetes mellitus type 2. This remained stable during the course of his stay. Patient will continue with his diabetic regimen including Tresiba 20 mg sc at bedtime and Glucophage 1000 mg 1 pill twice daily. Recommendation is to maintain blood sugars less 140 fasting and less than 200 after meals. Further adjustment can be done by his PCP. Patient has fatty liver. Education will be provided. Dietary lifestyle modification education will also be provided. Patient may have underlying GERD. At discharge patient continue with Protonix 40 mg 1 pill once daily. Further evaluation may be required with GI. Vital Signs/Physical Exam: Temp Pulse Resp BP Pulse Ox 97.2 F 70 18 118/75 98 07/14/17 08:00 07/14/17 08:00 07/14/17 08:00 07/14/17 08:00 07/14/17 08:00 General: Alert, In no apparent distress, Oriented x3, Cooperative HEENT: Atraumatic, Mucous membr. moist/pink Neck: Supple, No Thyromegaly Respiratory: Clear to auscultation bilaterally Cardiovascular: Normal pulses, Regular rate/rhythm Gastrointestinal: Normal bowel sounds, Soft and benign, Non-distended, No tenderness, No masses, No rebound, No guarding Musculoskeletal: No erythema, No tenderness, No warmth Integumentary: No tenderness/swelling, No erythema, No warmth, No cyanosis Neurological: Normal speech, Normal strength at 5/5 x4 extr, Normal tone, Normal affect Laboratory Data at Discharge: WBC 5.0 K/uL (4.3-10.9) 07/12/17 08:50 Hgb 12.8 g/dL (13.6-17.9) L 07/12/17 08:50 Hct 38.9 % (39.6-49.0) L 07/12/17 08:50 Plt Count 203 K/uL (152-406) 07/12/17 08:50 Sodium 136 mEq/L (135-145) 07/14/17 04:10 Potassium 3.8 mEq/L (3.6-5.0) 07/14/17 04:10 BUN 8 mg/dL (6-20) 07/14/17 04:10 Creatinine 0.96 mg/dL (0.61-1.24) 07/14/17 04:10 Glucose 175 mg/dL (65-120) H 07/14/17 04:10 Magnesium 1.8 mg/dL (1.8-2.5) 07/14/17 04:10 Total Bilirubin 1.2 mg/dL (0.3-1.2) 07/12/17 08:50 AST 55 IU/L (10-42) H 07/12/17 08:50 ALT 109 IU/L (10-60) H 07/12/17 08:50 Alkaline Phosphatase 46 IU/L (42-121) 07/12/17 08:50 Triglycerides 485 mg/dL (35-160) H 07/14/17 04:10 Cholesterol 384 mg/dL (<200) H 07/08/17 02:42 LDL Cholesterol Direct 148 mg/dl (<130) H 07/14/17 04:10 HDL Cholesterol 32 mg/dL (27-67) 07/08/17 02:42 Cholesterol/HDL Ratio 12.00 07/08/17 02:42 Amylase 59 U/L (28-100) D 07/09/17 04:53 Lipase 26 U/L (22-51) 07/09/17 04:53 Home Medications: Metformin HCl [Glucophage] 1,000 mg PO BIDWM 11/06/13 Fenofibrate,Micronized [Fenofibrate] 200 mg PO DAILY WITH BREAKFAST 07/08/17 Insulin Degludec [Tresiba Flextouch U-200] 20 units SQ BEDTIME 07/08/17 Pantoprazole [Protonix Tab] 40 mg PO DAILY #30 tab 07/14/17 New Medications: Pantoprazole [Protonix Tab] 40 mg PO DAILY #30 tab Patient Discharge Instructions: 1. Patient will need a follow up with his PCP in 1 week to follow up this hospitalization. 2. Patient presented with acute pancreatitis secondary to hypertriglyceridemia. This has resolved. At discharge he is without any significant nausea, vomiting, and abdominal pain. Patient is tolerating his diet. At discharge he will continue with [place] diabetic diet. Patient will continue with Fenofibrate 200 mg daily. Recommendation is to recheck lipid panel in 1 week to monitor his progress. Recommendation is for the patient to follow up with GI to further monitor and address. 3. Patient has diabetes mellitus type 2. Patient will continue with his diabetic regimen including Tresiba 20 mg sc at bedtime and Glucophage 1000 mg 1 pill twice daily. Recommendation is to maintain blood sugars less 140 fasting and less than 200 after meals. Further adjustment can be done by his PCP. 4. Patient has fatty liver. Education will be provided. Dietary lifestyle modification education will also be provided. 5. Patient may have underlying GERD. At discharge patient continue with Protonix 40 mg 1 pill once daily. Further evaluation may be required with GI. Diet: ADA Activity: Ad stanley Time spent managing pt's care (in minutes): 55
[2017-07-14 12:31] VITALS: BP 125/82; TEMP 97.1
== END 2017-07-14 13:22 | disposition home or self-care (01) | DRG 440 ==
LOC: ER 23:27 → ERHOLD 07-08 02:27 → 4TH 07-08 02:59 → 3RD-ICU 07-08 06:00 → 4TH 07-10 15:15
PROVIDERS: ADMIT Internal Medicine; ATTEND Internal Medicine
DX: K85.90 Acute pancreatitis without necrosis or infection, unspecified (principal); E11.9 Type 2 diabetes mellitus without complications; Z79.4 Long term (current) use of insulin; K76.0 Fatty (change of) liver, not elsewhere classified; E78.1 Pure hyperglyceridemia; E66.9 Obesity, unspecified; Z68.32 Body mass index [BMI] 32.0-32.9, adult; K21.9 Gastro-esophageal reflux disease without esophagitis
CPT/HCPCS: 36415; 74177; 80048; 80053; 80061; 80076; 81003; 82150; 82962; 83690; 83735; 84132; 84478; 85025; 96361; 96374; 96375; 99285; J1650; J2270; J2405; J3475; J7030; Q9967

== ENCOUNTER 2018-01-30 23:56 | Inpatient (IN) | payer OTHER ==
[2018-01-31] MEDS ORDERED: ONDANSETRON 4 MG/2 ML VIAL ONE (00:37)
[2018-01-31] MEDS ORDERED: MEPERIDINE HCL 50 MG/ML AMP ONE ×2 (00:37→02:26)
[2018-01-31] MEDS ORDERED: NA CHLORIDE 0.9% 1,000 ML ONE ×3 (00:37→09:32)
[2018-01-31 01:45] LABS: Absolute Lymphocytes (CBC) 2.2 K/uL (0.7-4.9); Absolute Monocytes 0.4 K/uL (0.1-1.3); Absolute Neutrophil 5.6 K/uL (1.8-8.0); Basophils % 0.9 % (0-1.3); Eosinophils % 1.4 % (0-4.4); Hematocrit 37.4 % (39.6-49.0); Lymphocytes % 26.2 % (15.3-44.8); MCH 27.1 pg (27.0-35.0); MCV 83.2 fL (80-100); MPV 12.4 fL (7.6-11.3); Monocytes % 5.1 % (3.3-12.3)
[2018-01-31 03:29] LABS: ALT/SGPT 37 U/L (12-78); AST/SGOT 65 U/L (15-37); Albumin 3.3 g/dL (3.4-5.0); Alkaline Phosphatase 72 U/L (45-117); BUN Blood Urea Nitrogen 14 mg/dL (7-18); Bicarbonate 25 mmol/L (21-32); Bilirubin Direct < 0.1 mg/dL (0-0.2); Bilirubin Total 0.3 mg/dL (0.2-1.0); Glucose Level 241 mg/dL (74-106); Lipase 870 U/L (73-393); Potassium 5.3 mmol/L (3.5-5.1); Protein, Total 7.6 g/dL (6.4-8.2); Sodium Level 140 mmol/L (136-145)
--- NOTE | 2018-01-31 03:43 | ER ---
Nurse's Notes [facility] Name: Javier Rutherford Age: 43 yrs Sex: Male : 1975 Arrival Date: 01/30/2018 Time: 23:57 Bed 15 Private MD: Diagnosis: Acute pancreatitis, unspecified Presentation: 01/31 00:33 Presenting complaint: Patient states: LUQ pain started 01/30 at 1500. Pt states it tl2 feels like a pancreatitis flare up. Transition of care: patient was not received from another setting of care. Onset of symptoms was January 30, 2018 at 15:00. Risk Assessment: Do you want to hurt yourself or someone else? Patient reports no desire to harm self or others. Initial Sepsis Screen: Does the patient meet any 2 criteria? No. Patient's initial sepsis screen is negative. Does the patient have a suspected source of infection? No. Patient's initial sepsis screen is negative. Care prior to arrival: None. 00:33 Method Of Arrival: Ambulatory tl2 00:33 Acuity: HANY 3 tl2 Triage Assessment: 00:35 General: Appears in no apparent distress. uncomfortable, Behavior is calm, cooperative, tl2 appropriate for age. Pain: Complains of pain in left upper quadrant Pain does not radiate. Pain currently is 8 out of 10 on a pain scale. Noted to be grimacing, guarding. Neuro: Level of Consciousness is awake, alert, obeys commands, Oriented to person, place, time, situation. Cardiovascular: Denies chest pain. Respiratory: Airway is patent Respiratory effort is even, unlabored, Respiratory pattern is regular, symmetrical. GI: Reports upper abdominal pain, nausea. : No signs and/or symptoms were reported regarding the genitourinary system. Derm: Skin is pink, warm \T\ dry. Historical: - Allergies: 00:35 No Known Allergies; tl2 - Home Meds: 00:35 fenofibrate 200 mg Oral tab 1 cap once daily [Active]; metformin 1,000 mg Oral tab 1 tl2 tab 2 times per day [Active]; Tresiba FlexTouch U-100 subcutaneous [Active]; - PMHx: 00:35 Diabetes - NIDDM; fatty liver; Hyperlipidemia; Pancreatitis; tl2 - PSHx: 00:35 Cholecystectomy; tl2 - Immunization history:: Adult Immunizations up to date. - Social history:: Smoking status: Patient/guardian denies using tobacco. - Family history:: not pertinent. - Ebola Screening: : No symptoms or risks identified at this time. - Hospitalizations: : No recent hospitalization is reported. Screenin:38 Abuse screen: Denies threats or abuse. Nutritional screening: No deficits noted. tl2 Tuberculosis screening: No symptoms or risk factors identified. Fall Risk None identified. Assessment: 00:40 General: see triage assessment. tl2 01:37 Reassessment: Patient appears in no apparent distress at this time. Patient and/or tl2 family updated on plan of care and expected duration. Pain level reassessed. Patient is alert, oriented x 3, equal unlabored respirations, skin warm/dry/pink. Patient states feeling better. 03:40 Reassessment: Patient appears in no apparent distress at this time. Patient and/or jb4 family updated on plan of care and expected duration. Pain level reassessed. Patient is alert, oriented x 3, equal unlabored respirations, skin warm/dry/pink. Vital Signs: 00:35 BP 127 / 77; Pulse 67; Resp 18; Pulse Ox 99% on R/A; Weight 102.06 kg; Height 5 ft. 8 tl2 in. (172.72 cm); Pain 8/10; 01:37 BP 122 / 77; Pulse 71; Resp 18; Pulse Ox 98% ; Pain 5/10; tl2 02:34 BP 129 / 86; Pulse 65; Resp 18; Pulse Ox 97% on R/A; tl2 03:40 BP 113 / 74; Pulse 74; Resp 16; Pulse Ox 98% on R/A; jb4 00:35 Body Mass Index 34.21 (102.06 kg, 172.72 cm) tl2 ED Course: 01/30 23:57 Patient arrived in ED. ag3 01/31 00:03 Austin Harrington MD is Attending Physician. rn 00:15 Initial lab(s) drawn, by pr. Inserted saline lock: 20 gauge in left antecubital area, jb4 using aseptic technique. Blood collected. 00:30 EKG done, by ED staff, reviewed by Austin Harrington MD. ds4 00:33 Isela Caballero, RN is Primary Nurse. tl2 00:34 Triage completed. tl2 00:35 Arm band placed on right wrist. tl2 00:39 Patient has correct armband on for positive identification. Bed in low position. Call tl2 light in reach. Side rails up X 1. Adult w/ patient. 03:57 Arpan Mckeon MD is Hospitalizing Provider. rn 13:57 No provider procedures requiring assistance completed. Patient admitted, IV remains in jl7 place. intact, No redness/swelling at site. Administered Medications: 00:35 Drug: NS 0.9% 1000 ml Route: IV; Rate: 1000 ml; Site: left antecubital; jb4 01:35 Follow up: Response: No adverse reaction; IV Status: Completed infusion jb4 00:40 Drug: Zofran 4 mg Route: IVP; Site: left antecubital; jb4 01:20 Follow up: Response: No adverse reaction; Nausea is decreased jb4 00:45 Drug: Demerol 50 mg Route: IVP; Site: left antecubital; jb4 01:20 Follow up: Response: No adverse reaction; Pain is decreased jb4 02:24 Drug: Demerol 50 mg Route: IVP; Site: left forearm; tl2 03:00 Follow up: Response: No adverse reaction; Pain is decreased jb4 Outcome: 03:42 Discharge ordered by MD. rn 03:58 Decision to Hospitalize by Provider. rn 04:20 Admitted to ER Hold. Please see [facility] for further documentation. jb4 04:20 Condition: stable jb4 04:20 Discharge instructions given to patient, Instructed on the need for admit, Demonstrated understanding of instructions. 13:58 Patient left the ED. jl7 Signatures: Austin Harrington MD MD rn Swanson, Donovan ds4 Isela Caballero RN RN tl2 Walter Fregoso RN RN jb4 Kaiden Golden RN RN jl7 Doris Rowell ag3
--- NOTE | 2018-01-31 03:43 | EDPHYS ---
Physician Documentation [facility] Name: Javier Rutherford Age: 43 yrs Sex: Male : 1975 Arrival Date: 01/30/2018 Time: 23:57 Bed 15 Private MD: ED Physician Austin Harrington HPI: 01/31 00:17 This 43 yrs old Male presents to ER via Unassigned with complaints of rn Abdominal Pain. 00:17 The patient presents with abdominal pain in the epigastric area. rn 00:17 Onset: The symptoms/episode began/occurred today. The symptoms radiate to back. rn Associated signs and symptoms: Pertinent positives: nausea, Pertinent negatives: anorexia, blood in stools, chest pain, constipation, diarrhea, dysuria, fever, vomiting. The symptoms are described as intermittent, sharp. Modifying factors: The symptoms are alleviated by nothing, the symptoms are aggravated by touching the area. Severity of pain: At its worst the pain was moderate in the emergency department the pain is unchanged. The patient has experienced similar episodes in the past. The patient has not recently seen a physician. + epigastric abd pain for 1 day, identical to previous episodes of pancreatitis, no fever, + nausea, no vomiting or diarrhea. Has had gallbladder removed. Doesn't drink ETOH. No clear etiology for previous pancreatitis. . Historical: - Allergies: 00:35 No Known Allergies; tl2 - Home Meds: 00:35 fenofibrate 200 mg Oral tab 1 cap once daily [Active]; metformin 1,000 mg Oral tab 1 tl2 tab 2 times per day [Active]; Tresiba FlexTouch U-100 subcutaneous [Active]; - PMHx: 00:35 Diabetes - NIDDM; fatty liver; Hyperlipidemia; Pancreatitis; tl2 - PSHx: 00:35 Cholecystectomy; tl2 - Immunization history:: Adult Immunizations up to date. - Social history:: Smoking status: Patient/guardian denies using tobacco. - Family history:: not pertinent. - Ebola Screening: : No symptoms or risks identified at this time. - Hospitalizations: : No recent hospitalization is reported. ROS: 00:17 Constitutional: Negative for fever, chills, and weight loss, Eyes: Negative for injury, rn pain, redness, and discharge, Neck: Negative for injury, pain, and swelling, Cardiovascular: Negative for chest pain, palpitations, and edema, Respiratory: Negative for shortness of breath, cough, wheezing, and pleuritic chest pain, Abdomen/GI: + abd pain and nausea, no vomiting/diarrhea Back: Negative for injury MS/Extremity: Negative for injury and deformity, Skin: Negative for injury, rash, and discoloration, Neuro: Negative for headache, weakness, numbness, tingling, and seizure. Exam: 00:17 Constitutional: This is a well developed, well nourished patient who is awake, alert, rn and in no acute distress. Head/Face: Normocephalic, atraumatic. ENT: MMM Cardiovascular: Regular rate and rhythm, No pulse deficits. Respiratory: Lungs have equal breath sounds bilaterally, clear to auscultation. No increased work of breathing, no retractions or nasal flaring. Abdomen/GI: soft, + epigastric tenderness without rebound, non-tender elsewhere Skin: Warm, dry, no evidence of cellulitis. MS/ Extremity: Pulses equal, no cyanosis. Neurovascular intact. Full, normal range of motion. Equal circumference. Neuro: Awake and alert, GCS 15, oriented to person, place, time, and situation. Cranial nerves II-XII grossly intact. Motor strength 5/5 in all extremities. Sensory grossly intact. Vital Signs: 00:35 BP 127 / 77; Pulse 67; Resp 18; Pulse Ox 99% on R/A; Weight 102.06 kg; Height 5 ft. 8 tl2 in. (172.72 cm); Pain 8/10; 01:37 BP 122 / 77; Pulse 71; Resp 18; Pulse Ox 98% ; Pain 5/10; tl2 02:34 BP 129 / 86; Pulse 65; Resp 18; Pulse Ox 97% on R/A; tl2 03:40 BP 113 / 74; Pulse 74; Resp 16; Pulse Ox 98% on R/A; jb4 00:35 Body Mass Index 34.21 (102.06 kg, 172.72 cm) tl2 MDM: 00:03 Patient medically screened. rn 02:29 ED course: Pt sleeping. rn 03:40 Differential diagnosis: non-specific abd pain, pancreatitis. Data reviewed: vital rn signs, nurses notes, lab test result(s), EKG, and as a result, I will discharge patient. Counseling: I had a detailed discussion with the patient and/or guardian regarding: the historical points, exam findings, and any diagnostic results supporting the discharge/admit diagnosis, lab results, the need for outpatient follow up, to return to the emergency department if symptoms worsen or persist or if there are any questions or concerns that arise at home. Response to treatment: the patient's symptoms have markedly improved after treatment, and as a result, I will discharge patient. ED course: Pain almost resolved, likely due to lipids, not sure if compliant with his fenofibrate, has had gallbladder removed and doesn't drink, told him gradual return to normal diet, clears, and will dc home with pain meds and nausea meds, biggest thing he could do for himself is watch his diet, take his meds, and lose weight. . 03:55 ED course: Pt now reports pain returning, doesn't feel comfortable going home, will field return repairer for pancreatitis. . 01/31 00:16 Order name: CBC with Diff; Complete Time: 02:00 rn 01/31 02:33 Order name: Lipid Profile 01/31 02:34 Order name: Basic Metabolic Panel; Complete Time: 03:37 EDAZ 01/31 02:34 Order name: Liver (Hepatic) Function; Complete Time: 03:37 EDAZ 01/31 02:34 Order name: Lipase; Complete Time: 03:37 EDAZ 01/31 03:27 Order name: Lipid Profile [facility] 01/31 03:50 Order name: LDL, Direct EDAZ 01/31 00:16 Order name: IV Saline Lock; Complete Time: 00:49 rn 01/31 00:16 Order name: Labs collected and sent; Complete Time: 00:49 rn 01/31 00:16 Order name: EKG; Complete Time: 00:17 rn 01/31 00:16 Order name: EKG - Nurse/Tech; Complete Time: 00:43 rn Administered Medications: 00:35 Drug: NS 0.9% 1000 ml Route: IV; Rate: 1000 ml; Site: left antecubital; jb4 01:35 Follow up: Response: No adverse reaction; IV Status: Completed infusion jb4 00:40 Drug: Zofran 4 mg Route: IVP; Site: left antecubital; jb4 01:20 Follow up: Response: No adverse reaction; Nausea is decreased jb4 00:45 Drug: Demerol 50 mg Route: IVP; Site: left antecubital; jb4 01:20 Follow up: Response: No adverse reaction; Pain is decreased jb4 02:24 Drug: Demerol 50 mg Route: IVP; Site: left forearm; tl2 03:00 Follow up: Response: No adverse reaction; Pain is decreased jb4 Disposition: 01/31/18 03:58 Hospitalization ordered by Arpan Mckeon for Observation. Preliminary diagnosis is Acute pancreatitis, unspecified. - Bed requested for Telemetry/MedSurg (Inpatient). - Status is Observation. jl7 - Condition is Stable. - Problem is new. - Symptoms have improved. UTI on Admission? No Signatures: Dispatcher [employer] EDAZ Gisell Rodriguez, RN RN Elizabeth Yanez ms, Roman, MD MD rn Knox, Taylor RN ARACELI tl2 Walter Fregoso RN RN jb4 Kaiden Golden RN RN jl7 Corrections: (The following items were deleted from the chart) 02:35 00:17 BASIC METABOLIC PANEL+C.LAB.BRZ ordered. [facility] EDMS 02:36 00:17 HEPATIC FUNCTION+C.LAB.BRZ ordered. [facility] EDAZ 02:36 00:17 LIPASE+C.LAB.BRZ ordered. [facility] EDAZ 03:55 03:42 01/31/2018 03:42 Discharged to Home. Impression: Other chronic pancreatitis. rn Condition is Stable. Forms are Medication Reconciliation Form, Thank You Letter, Antibiotic Education, Prescription Opioid Use. Follow up: Private Physician; When: As needed; Reason: Recheck today's complaints, Re-evaluation by your physician. Problem is new. Symptoms have improved. rn 04:09 03:58 Hospitalization Ordered by Arpan Mckeon MD for Observation. Preliminary ms diagnosis is Acute pancreatitis, unspecified. Bed requested for Telemetry/MedSurg (observation). Status is Observation. Condition is Stable. Problem is new. Symptoms have improved. UTI on Admission? No. rn 13:14 04:09 01/31/2018 03:58 Hospitalization Ordered by Arpan Mckeon MD for Observation. dw Preliminary diagnosis is Acute pancreatitis, unspecified. Bed requested for [facility] ER HOLD. Status is Observation. Condition is Stable. Problem is new. Symptoms have improved. UTI on Admission? No. ms 13:58 13:14 01/31/2018 03:58 Hospitalization Ordered by Arpan Mckeon MD for Observation. jl7 Preliminary diagnosis is Acute pancreatitis, unspecified. Bed requested for Telemetry/MedSurg (Inpatient). Status is Observation. Condition is Stable. Problem is new. Symptoms have improved. UTI on Admission? No. dw
[2018-01-31 03:49] LABS: HDL Cholesterol 28 mg/dL (40-60); LDL Cholesterol, Calculated ND (<130)
[2018-01-31 04:05] LABS: LDL, Direct 111 mg/dL (100-129)
[2018-01-31] MEDS ORDERED: ACETAMINOPHEN 500 MG TAB PO PRN (05:21)
[2018-01-31] MEDS ORDERED: ONDANSETRON 4 MG/2 ML VIAL IV PRN (05:21)
[2018-01-31] MEDS ORDERED: MORPHINE 4 MG/ML SYR ONE (05:51)
[2018-01-31] MEDS ORDERED: NA CHLORIDE 0.9% 1,000 ML IV SCH (06:00)
[2018-01-31] MEDS: MORPHINE 4 MG/ML SYR IV PRN ×2 (06:19→10:00)
--- NOTE | 2018-01-31 06:58 | EKG ---
Test Date: 2018-01-31 Test Time: 00:22:51 Missile Inspector: ASHLEIGH MEASUREMENT RESULTS: Intervals: Rate: 64 AK: 120 QRSD: 90 QT: 394 QTc: 406 [place]: P: 33 AK: 120 QRS: 22 T: 2 INTERPRETIVE STATEMENTS: Normal sinus rhythm Normal ECG Compared to ECG 09/05/2016 19:38:12 T-wave abnormality no longer present Electronically Signed On 01-31-18 06:58:23 FREIGHT ELEVATOR OPERATOR by Alfie Tran
[2018-01-31] MEDS: NA CHLORIDE 0.9% 1,000 ML IV SCH ×3 (08:00→20:12)
--- NOTE | 2018-01-31 08:04 | P.HP ---
Certification for Inpatient Patient admitted to: Inpatient With expected LOS: >2 Midnights Patient will require the following post-hospital care: None Practitioner: I am a practitioner with admitting privileges, knowledge of patient current condition, hospital course, and medical plan of care. Services: Services provided to patient in accordance with Admission requirements found in Title 42 Section 412.3 of the Code of Federal Regulations Patient History Date of Service: 01/31/18 Reason for admission: Hypertriglyceridemia and acute pancreatitis History of Present Illness: Patient is a 43-year-old gentleman who came into the hospital with acute pancreatitis. Patient has a history of hypertriglyceridemia and has developed pancreatitis from this before. He states he did knee eating eating out of the ordinary during the . He also states that he has been taking his medication as prescribed. He states he takes fenofibrate and this was prescribed a month ago. He denies missing any dosages. He came into the hospital with severe abdominal pain & his workup revealed acute pancreatitis. Patient be admitted to the hospital for further workup. Allergies No Known Allergies Allergy (Verified 01/31/18 05:25) Home Medications: Metformin HCl [Glucophage] 1,000 mg PO BIDWM 11/06/13 Fenofibrate,Micronized [Fenofibrate] 200 mg PO DAILY WITH BREAKFAST 07/08/17 Insulin Degludec [Tresiba Flextouch U-200] 20 units SQ BEDTIME 07/08/17 Pantoprazole [Protonix Tab] 40 mg PO DAILY #30 tab 07/14/17 - Past Medical/Surgical History Has patient received pneumonia vaccine in the past: No Diabetic: Yes -: pancreatitis -: hyperlipidemia -: DM2 -: pancreatic mass -: latty liver -: Cholecystectomy -: Hernia sx -: vasectomy - Family History Sister Medical History: Diabetes, Cancer Mother Medical History: Diabetes Brother Medical History: GI disease, Diabetes Notes: Pancreatitis - Social History Smoking Status: Former smoker Alcohol use: No CD- Drugs: No Caffeine use: Yes Place of Residence: Home Review of Systems 10-point ROS is otherwise unremarkable Physical Examination - Vital Signs Temperature: 99 F Blood Pressure: 140/70 Pulse: 89 Respirations: 18 Pulse Ox (%): 96 - Physical Exam General: Alert, In no apparent distress, Oriented x3 HEENT: Atraumatic, PERRLA, Mucous membr. moist/pink, EOMI, Sclerae nonicteric Neck: Supple, 2+ carotid pulse no bruit, No LAD, Without JVD or thyroid abnormality Respiratory: Clear to auscultation bilaterally, Normal air movement Cardiovascular: Regular rate/rhythm, Normal S1 S2, No murmurs Gastrointestinal: Hypoactive, Distended, Tenderness, Rebound, Guarding Musculoskeletal: No clubbing, No swelling, No tenderness Integumentary: No rashes Neurological: Normal gait, Normal speech, Normal strength at 5/5 x4 extr, Normal tone, Sensation intact, Cranial nerves 3-12 intact, Normal affect Lymphatics: No axilla or inguinal lymphadenopathy - Studies Laboratory Data (last 24 hrs) 01/31/18 02:41: Triglycerides 977 H, Cholesterol 353 H, LDL Cholesterol Direct 111, HDL Cholesterol 28 L, Cholesterol/HDL Ratio 12.61 01/31/18 02:41: Sodium 140, Potassium 5.3 H, BUN 14, Creatinine 0.90, Glucose 241 H, Total Bilirubin 0.3, AST 65 H, ALT 37, Alkaline Phosphatase 72, Lipase 870 H 01/31/18 01:39: Sodium Cancelled, Potassium Cancelled, BUN Cancelled, Creatinine Cancelled, Glucose Cancelled, Total Bilirubin Cancelled, AST Cancelled, ALT Cancelled, Alkaline Phosphatase Cancelled, Lipase Cancelled 01/31/18 00:15: WBC 8.4, Hgb 12.2 L, Hct 37.4 L, Plt Count 292 Assessment & Plan - Problems (Diagnosis) (1) Abdominal pain Onset Date: 04/28/14 Current Visit: No Status: Acute (2) Acute pancreatitis Onset Date: 03/21/14 Current Visit: No Status: Acute Qualifiers: Pancreatitis type: other Acute pancreatitis complication: no infection or necrosis Qualified Code(s): K85.80 - Other acute pancreatitis without necrosis or infection (3) Hypertriglyceridemia Onset Date: 11/14/16 Current Visit: No Status: Acute (4) Diabetes mellitus Onset Date: 11/14/16 Current Visit: No Status: Chronic Qualifiers: Diabetes mellitus type: type 2 Diabetes mellitus adjunct faculty for medical terminology insulin use: with adjunct faculty for medical terminology use Diabetes mellitus complication status: with other specified complication Qualified Code(s): E11.69 - Type 2 diabetes mellitus with other specified complication; Z79.4 - terminal clerk (current) use of insulin (5) Obesity (BMI 30-39.9) Onset Date: 11/14/16 Current Visit: No Status: Chronic - Plan 1. Aggressive IV hydration 2. Resume fenofibrate 3. Continue with pain control 4. NPO 5. Consultation with surgery if his symptoms worsen; monitor for necrosis 6. We will monitor CBC, BMP, LFTs and lipase along with electrolytes. 7. GI and DVT prophylaxis Discharge Plan: Home Plan to discharge in: Greater than 2 days - Advance Directives Does patient have a Living Will: No Does patient have a Durable POA for Healthcare: No - Code Status/Comfort Care Code Status Assessed: Yes Code Status: Full Code Critical Care: No Time Spent Managing PTS Care (In Minutes): 50
[2018-01-31] MEDS: PANTOPRAZOLE 40MG TABLET PO SCH (09:00)
[2018-01-31] MEDS ORDERED: PNEUMOCOCCAL VACCINE 0.5 ML IMVAC ONE ×2 (09:00→09:32)
[2018-01-31] MEDS: FENOFIBRATE 160 MG TAB PO SCH (09:00)
[2018-01-31] MEDS ORDERED: INFLUENZA VACCINE (for 3y+) 0.5 ML DOSE IMVAC ONE ×2 (09:00→09:32)
[2018-01-31] MEDS ORDERED: PANTOPRAZOLE 40MG TABLET PO ONE (09:31)
[2018-01-31] MEDS ORDERED: MORPHINE 2 MG/ML SYR ONE (10:00)
[2018-01-31] MEDS ORDERED: HYDROMORPHONE HCL 0.5 MG/0.5 ML INJ IV ONE (11:50)
[2018-01-31] MEDS ORDERED: HYDROMORPHONE HCL 0.5 MG/0.5 ML INJ ONE (11:59)
[2018-01-31] MEDS: HYDROCODONE/APAP 10/325 TAB PO PRN (14:38)
[2018-01-31] MEDS: MORPHINE 2 MG/ML SYR IV PRN ×2 (14:46→20:12)
[2018-01-31 15:34] LABS: Urine Appearance CLEAR; Urine Bilirubin NEGATIVE (NEG); Urine Blood NEGATIVE (NEG); Urine Color YELLOW; Urine Glucose 3+ (NEG); Urine Protein NEGATIVE (NEG); Urine Specific Gravity >=1.030 (1.005-1.030); Urine Urobilinogen 0.2 mg/dL (0.2-1.0); Urine pH 5.5 (5.0-7.0)
[2018-01-31 15:38] LABS: Urine Microscopic Reflex NO UMIC
[2018-01-31] MEDS ORDERED: D50W 25 GM/50 ML SYRINGE IV PRN (18:48)
[2018-01-31] MEDS ORDERED: GLUCAGON 1 MG/VIAL IM PRN (18:48)
[2018-01-31] MEDS: INSULIN -REGULAR HUMAN 50 UNIT/0.5 ML ML SQ SCH (21:00)
[2018-01-31] MEDS ORDERED: INSULIN DEGLUDEC 20 UNIT SQ SCH (21:00)
[2018-02-01] MEDS: NA CHLORIDE 0.9% 1,000 ML IV SCH ×3 (03:06→15:54)
[2018-02-01] MEDS: MORPHINE 2 MG/ML SYR IV PRN ×2 (03:07→09:44)
[2018-02-01 06:32] LABS: Absolute Lymphocytes (CBC) 1.5 K/uL (0.7-4.9); Absolute Monocytes 0.4 K/uL (0.1-1.3); Absolute Neutrophil 7.1 K/uL (1.8-8.0); Basophils % 0.3 % (0-1.3); Eosinophils % 0.8 % (0-4.4); Hematocrit 35.3 % (39.6-49.0); Lymphocytes % 16.9 % (15.3-44.8); MCH 29.5 pg (27.0-35.0); MCV 81.5 fL (80-100); MPV 10.4 fL (7.6-11.3); Monocytes % 4.8 % (3.3-12.3); RBC Red Blood Cell Count 4.33 M/uL (4.33-5.43)
[2018-02-01] MEDS: INSULIN -REGULAR HUMAN 50 UNIT/0.5 ML ML SQ SCH ×2 (07:30→11:30)
[2018-02-01 07:52] LABS: HDL Cholesterol 34 mg/dL (40-60)
[2018-02-01 07:53] LABS: LDL Cholesterol, Calculated ND (<130); LDL, Direct 79 mg/dL (100-129)
[2018-02-01 08:51] LABS: ALT/SGPT 35 U/L (12-78); AST/SGOT 26 U/L (15-37); Albumin 3.1 g/dL (3.4-5.0); Alkaline Phosphatase 72 U/L (45-117); BUN Blood Urea Nitrogen 7 mg/dL (7-18); Bicarbonate 20 mmol/L (21-32); Bilirubin Total 0.8 mg/dL (0.2-1.0); Glucose Level 190 mg/dL (74-106); Lipase 3575 U/L (73-393); Potassium 4.1 mmol/L (3.5-5.1); Protein, Total 7.1 g/dL (6.4-8.2); Sodium Level 139 mmol/L (136-145)
[2018-02-01] MEDS ORDERED: ONDANSETRON 4 MG (ODT) TAB PO PRN (10:59)
[2018-02-01] MEDS ORDERED: TRAMADOL HCL 50 MG TAB PO PRN (11:00)
[2018-02-01] MEDS: ENOXAPARIN 40 MG/0.4 ML SQ SCH (12:10)
[2018-02-01] MEDS: FENOFIBRATE 160 MG TAB PO SCH (12:10)
[2018-02-01] MEDS: PANTOPRAZOLE 40MG TABLET PO SCH (12:10)
--- NOTE | 2018-02-01 13:35 | P.PN ---
Subjective Date of Service: 02/01/18 Chief Complaint: Hypertriglyceridemia and acute pancreatitis Subjective: No C/O voiced, Doing well (TG elevated this AM and Lipase Elevated. No C/o Pain. Will need to be transferred to the ICU for insulin ggt for elevated TG) Review of Systems 10-point ROS is otherwise unremarkable Physical Examination - Vital Signs Temperature: 98.3 F Blood Pressure: 120/70 Pulse: 88 Respirations: 18 Pulse Ox (%): 98 - Physical Exam General: Alert, In no apparent distress HEENT: Atraumatic, PERRLA, EOMI Neck: Supple, JVD not distended Respiratory: Clear to auscultation bilaterally, Normal air movement Cardiovascular: Regular rate/rhythm, Normal S1 S2 Gastrointestinal: Normal bowel sounds, Tenderness Musculoskeletal: No tenderness Integumentary: No rashes Neurological: Normal speech, Normal tone, Normal affect Lymphatics: No axilla or inguinal lymphadenopathy - Studies Medications List Reviewed: Yes Assessment And Plan - Current Problems (Diagnosis) (1) Acute pancreatitis Onset Date: 03/21/14 Current Visit: No Status: Acute Plan: Acute pancreatitis 2.2 to elevated TG -IV fluids, NPO and transfer to ICU for Insulin ggt -Monitor closely Qualifiers: Pancreatitis type: other Acute pancreatitis complication: no infection or necrosis Qualified Code(s): K85.80 - Other acute pancreatitis without necrosis or infection (2) Hypertriglyceridemia Onset Date: 11/14/16 Current Visit: No Status: Chronic (3) Diabetes mellitus Onset Date: 11/14/16 Current Visit: No Status: Chronic Qualifiers: Diabetes mellitus type: type 2 Diabetes mellitus long-term insulin use: with long-term use Diabetes mellitus complication status: with other specified complication Qualified Code(s): E11.69 - Type 2 diabetes mellitus with other specified complication; Z79.4 - group home (current) use of insulin (4) Fatty liver Onset Date: 11/14/16 Current Visit: No Status: Chronic (5) Obesity (BMI 30-39.9) Onset Date: 11/14/16 Current Visit: No Status: Chronic (6) GERD (gastroesophageal reflux disease) Current Visit: No Status: Chronic Qualifiers: Esophagitis presence: without esophagitis Qualified Code(s): K21.9 - Gastro -esophageal reflux disease without esophagitis - Plan Transfer To ICU for insulin ggt for elevated TG's. Discharge Plan: Home Plan to discharge in: 48 Hours - Code Status/Comfort Care Code Status Assessed: Yes Critical Care: No
[2018-02-01] MEDS: INSULIN -REGULAR HUMAN 100 UNIT in NA CHLORIDE 0.9% 100 ML IV SCH (15:53)
[2018-02-01] MEDS: D5 0.9 NS 1,000 ML IV SCH (15:54)
[2018-02-01] MEDS: HYDROCODONE/APAP 10/325 TAB PO PRN (16:54)
[2018-02-02] MEDS: D5 0.9 NS 1,000 ML IV SCH ×4 (02:00→19:24)
[2018-02-02] MEDS: PANTOPRAZOLE 40MG TABLET PO SCH (09:00)
[2018-02-02] MEDS: DOCOSAHEXANOIC AC/EPA 1000 MG PO SCH ×3 (09:00→20:57)
[2018-02-02] MEDS: ENOXAPARIN 40 MG/0.4 ML SQ SCH (09:00)
[2018-02-02] MEDS: FENOFIBRATE 160 MG TAB PO SCH (09:00)
[2018-02-02 10:30] LABS: Absolute Lymphocytes (CBC) 1.2 K/uL (0.7-4.9); Absolute Monocytes 0.3 K/uL (0.1-1.3); Absolute Neutrophil 3.4 K/uL (1.8-8.0); Basophils % 0.7 % (0-1.3); Eosinophils % 2.1 % (0-4.4); Hematocrit 34.9 % (39.6-49.0); Lymphocytes % 23.6 % (15.3-44.8); MCH 27.9 pg (27.0-35.0); Monocytes % 6.3 % (3.3-12.3); RBC Red Blood Cell Count 4.25 M/uL (4.33-5.43)
[2018-02-02 10:57] LABS: BUN Blood Urea Nitrogen 9 mg/dL (7-18); Bicarbonate 22 mmol/L (21-32); Glucose Level 156 mg/dL (74-106); HDL Cholesterol 35 mg/dL (40-60); LDL Cholesterol, Calculated ND (<130); Magnesium 2.1 mg/dL (1.8-2.4); Phosphorus 2.5 mg/dL (2.5-4.9); Potassium 3.6 mmol/L (3.5-5.1); Sodium Level 140 mmol/L (136-145)
[2018-02-02 11:13] LABS: LDL, Direct 84 mg/dL (100-129)
[2018-02-02] MEDS: NA CHLORIDE 0.9% 1,000 ML IV SCH (12:00)
[2018-02-02] MEDS: HYDROCODONE/APAP 10/325 TAB PO PRN (12:27)
--- NOTE | 2018-02-02 17:05 | P.PN ---
Subjective Date of Service: 02/02/18 Chief Complaint: Hypertriglyceridemia and acute pancreatitis Subjective: Other (Patient doing better. Pain to the abdomen improved.) Physical Examination - Vital Signs Temperature: 97.6 F Blood Pressure: 121/81 Pulse: 71 Respirations: 13 Pulse Ox (%): 99 - Physical Exam General: Alert, In no apparent distress, Oriented x3, Cooperative HEENT: Atraumatic Neck: Supple Respiratory: Clear to auscultation bilaterally, Normal air movement Cardiovascular: Normal pulses, Regular rate/rhythm Gastrointestinal: Normal bowel sounds, Soft and benign, Non-distended, No masses , No rebound, No guarding, Tenderness (Pain to the epigastric region improved) Musculoskeletal: No erythema, No tenderness, No warmth Integumentary: No tenderness/swelling, No erythema, No warmth, No cyanosis Neurological: Normal speech, Normal strength at 5/5 x4 extr, Normal tone, Normal affect - Studies Medications List Reviewed: Yes Assessment & Plan Discharge Plan: Home Plan to discharge in: 48 Hours Physician Review Additional Text: Impression: Abdominal pain secondary to acute on chronic pancreatitis secondary to hypertriglyceridemia Diabetes mellitus type 2, insulin-dependent GERD Fatty liver Obesity, BMI 33 Plan: Abdominal pain secondary to acute on chronic pancreatitis secondary to hypertriglyceridemia: Patient currently in ICU. Will continue with insulin drip. Insulin drip adjusted. Will continue to monitor triglycerides. Once triglycerides below 500 then will transition off insulin. Will continue NPO. Will monitor lipase levels closely. Continue with fish oil and fenofibrate. Diabetes mellitus type 2, insulin-dependent: Continue insulin drip for better control GERD: Continue the PPI. Fatty liver: Lifestyle modification education addressed in detail. Weight loss will be necessary in the future. Obesity, BMI 33: Continue with lifestyle modification education. Time Spent Managing Pts Care (In Minutes): 55
[2018-02-02] MEDS ORDERED: D50W 25 GM/50 ML SYRINGE IV ONE (17:18)
[2018-02-02] MEDS ORDERED: NA CHLORIDE 0.9% 1,000 ML IV PRN (17:32)
[2018-02-02 21:48] LABS: LDL, Direct 105 mg/dL (100-129)
[2018-02-03] MEDS: D5 0.9 NS 1,000 ML IV SCH ×4 (02:07→23:24)
[2018-02-03] MEDS: HYDROCODONE/APAP 10/325 TAB PO PRN (02:13)
[2018-02-03 05:37] LABS: Absolute Lymphocytes (CBC) 1.5 K/uL (0.7-4.9); Absolute Monocytes 0.4 K/uL (0.1-1.3); Absolute Neutrophil 2.5 K/uL (1.8-8.0); Basophils % 0.4 % (0-1.3); Eosinophils % 2.6 % (0-4.4); MCH 28.1 pg (27.0-35.0); MCV 83.1 fL (80-100); MPV 9.8 fL (7.6-11.3); Monocytes % 8.1 % (3.3-12.3); RBC Red Blood Cell Count 4.09 M/uL (4.33-5.43)
[2018-02-03 06:07] LABS: ALT/SGPT 53 U/L (12-78); AST/SGOT 38 U/L (15-37); Albumin 2.7 g/dL (3.4-5.0); Alkaline Phosphatase 56 U/L (45-117); BUN Blood Urea Nitrogen 7 mg/dL (7-18); Bicarbonate 23 mmol/L (21-32); Bilirubin Total 0.4 mg/dL (0.2-1.0); Glucose Level 144 mg/dL (74-106); HDL Cholesterol 34 mg/dL (40-60); LDL Cholesterol, Calculated ND (<130); Lipase 559 U/L (73-393); Magnesium 1.8 mg/dL (1.8-2.4); Potassium 3.2 mmol/L (3.5-5.1); Protein, Total 6.7 g/dL (6.4-8.2); Sodium Level 141 mmol/L (136-145)
[2018-02-03 06:22] LABS: LDL, Direct 122 mg/dL (100-129)
[2018-02-03] MEDS ORDERED: MAGNESIUM SULFATE 1 gm IVPB 1 GM/100 ML BAG IV ONE (07:00)
[2018-02-03] MEDS ORDERED: POTASSIUM CL SA 10 MEQ TAB PO ONE (09:00)
[2018-02-03] MEDS: PANTOPRAZOLE 40MG TABLET PO SCH (09:14)
[2018-02-03] MEDS: DOCOSAHEXANOIC AC/EPA 1000 MG PO SCH ×2 (09:14→20:55)
[2018-02-03] MEDS: ENOXAPARIN 40 MG/0.4 ML SQ SCH (09:15)
[2018-02-03] MEDS: FENOFIBRATE 160 MG TAB PO SCH (09:15)
--- NOTE | 2018-02-03 14:58 | P.PN ---
Subjective Date of Service: 02/03/18 Primary Care Provider: Drew Baugh NP([facility]) Chief Complaint: Hypertriglyceridemia and acute pancreatitis Subjective: Other (Abdominal pain improved. Patient stable this time. No significant nausea or vomiting.) Physical Examination - Vital Signs Temperature: 98 F Blood Pressure: 133/99 Pulse: 64 Respirations: 12 Pulse Ox (%): 98 - Physical Exam General: Alert, In no apparent distress, Oriented x3, Cooperative HEENT: Atraumatic Neck: Supple Respiratory: Clear to auscultation bilaterally, Normal air movement Cardiovascular: Normal pulses, Regular rate/rhythm Gastrointestinal: Normal bowel sounds, Soft and benign, Non-distended, No masses , No rebound, No guarding, Tenderness (Pain to the epigastric region significantly improved) Musculoskeletal: No tenderness, No warmth Integumentary: No tenderness/swelling, No erythema, No warmth, No cyanosis Neurological: Normal speech, Normal strength at 5/5 x4 extr, Normal tone, Normal affect - Studies Medications List Reviewed: Yes Assessment & Plan Discharge Plan: Home Plan to discharge in: 48 Hours Physician Review Additional Text: Impression: Abdominal pain secondary to acute on chronic pancreatitis secondary to hypertriglyceridemia Diabetes mellitus type 2, insulin-dependent GERD Fatty liver Obesity, BMI 33 Plan: Abdominal pain secondary to acute on chronic pancreatitis secondary to hypertriglyceridemia: Patient remains in ICU. Continue with insulin drip and IV fluids. Lipase and triglycerides improved. Will recheck triglyceride level later this afternoon. If less than 500 then patient can be transitioned off insulin drip. If transitioned off insulin drip then the patient can be transferred to the floor and started on clear liquid diet. Will continue with official and fenofibrate. Will continue to monitor lab closely. Anticipate home in the next 48 hr. Diabetes mellitus type 2, insulin-dependent: Continue insulin drip for better control of diabetes and triglyceride level GERD: Continue with PPI. Fatty liver: Lifestyle modification education addressed in detail. Weight loss will be necessary in the future. Obesity, BMI 33: Continue with lifestyle modification education. Time Spent Managing Pts Care (In Minutes): 55
[2018-02-03] MEDS: KCL 20 MEQ/100 mL IVPB 20 MEQ/100 ML BAG IV SCH ×3 (17:07→23:24)
[2018-02-03 18:43] LABS: LDL, Direct 149 mg/dL (100-129)
[2018-02-03] MEDS: INSULIN -REGULAR HUMAN 100 UNIT in NA CHLORIDE 0.9% 100 ML IV SCH (23:24)
[2018-02-04] MEDS: D5 0.9 NS 1,000 ML IV SCH ×2 (02:00→10:00)
[2018-02-04 05:16] LABS: Absolute Lymphocytes (CBC) 1.6 K/uL (0.7-4.9); Absolute Monocytes 0.3 K/uL (0.1-1.3); Absolute Neutrophil 2.4 K/uL (1.8-8.0); Basophils % 0.5 % (0-1.3); Eosinophils % 2.6 % (0-4.4); Hematocrit 34.9 % (39.6-49.0); MCH 27.8 pg (27.0-35.0); MCV 82.1 fL (80-100); MPV 9.6 fL (7.6-11.3); Monocytes % 6.8 % (3.3-12.3); RBC Red Blood Cell Count 4.26 M/uL (4.33-5.43)
[2018-02-04 05:39] LABS: ALT/SGPT 63 U/L (12-78); AST/SGOT 35 U/L (15-37); Albumin 2.9 g/dL (3.4-5.0); Alkaline Phosphatase 56 U/L (45-117); BUN Blood Urea Nitrogen 5 mg/dL (7-18); Bicarbonate 24 mmol/L (21-32); Bilirubin Total 0.5 mg/dL (0.2-1.0); Glucose Level 128 mg/dL (74-106); HDL Cholesterol 33 mg/dL (40-60); LDL Cholesterol, Calculated ND (<130); Lipase 602 U/L (73-393); Potassium 3.4 mmol/L (3.5-5.1); Protein, Total 6.8 g/dL (6.4-8.2); Sodium Level 142 mmol/L (136-145)
[2018-02-04 05:52] LABS: LDL, Direct 145 mg/dL (100-129)
[2018-02-04 06:33] VITALS: BMI 32.8
[2018-02-04] MEDS ORDERED: GLUCAGON 1 MG/VIAL IM PRN ×2 (08:45→09:50)
[2018-02-04] MEDS ORDERED: D50W 25 GM/50 ML SYRINGE IV PRN ×2 (08:45→09:50)
[2018-02-04] MEDS: KCL 20 MEQ/100 mL IVPB 20 MEQ/100 ML BAG IV SCH ×2 (09:00→09:50)
[2018-02-04] MEDS: ENOXAPARIN 40 MG/0.4 ML SQ SCH (09:49)
[2018-02-04] MEDS: DOCOSAHEXANOIC AC/EPA 1000 MG PO SCH ×2 (09:50→22:03)
[2018-02-04] MEDS: FENOFIBRATE 160 MG TAB PO SCH (09:50)
[2018-02-04] MEDS: PANTOPRAZOLE 40MG TABLET PO SCH (09:50)
[2018-02-04] MEDS: INSULIN GLARGINE 100 UNITS/ML SQ SCH (09:51)
[2018-02-04] MEDS: NACHLORIDE 0.45% 1,000 ML IV SCH ×2 (09:51→18:19)
[2018-02-04] MEDS: INSULIN -REGULAR HUMAN 50 UNIT/0.5 ML ML SQ SCH ×3 (11:54→21:00)
[2018-02-04] MEDS ORDERED: KCL 20 MEQ/100 mL IVPB 20 MEQ/100 ML BAG IV SCH (15:00)
--- NOTE | 2018-02-04 15:23 | P.PN ---
Subjective Date of Service: 02/04/18 Primary Care Provider: Drew Baugh NP([facility]) Chief Complaint: Hypertriglyceridemia and acute pancreatitis Subjective: Doing well (Patient doing well this time. Pain well controlled.) Physical Examination - Vital Signs Temperature: 97.6 F Blood Pressure: 131/86 Pulse: 68 Respirations: 12 Pulse Ox (%): 99 - Physical Exam General: Alert, In no apparent distress, Oriented x3, Cooperative HEENT: Atraumatic Neck: Supple Respiratory: Clear to auscultation bilaterally, Normal air movement Cardiovascular: Normal pulses, Regular rate/rhythm Gastrointestinal: Normal bowel sounds, Soft and benign, Non-distended, No masses , No rebound, No guarding, Tenderness (Less pain to the abdomen.) Neurological: Normal speech, Normal strength at 5/5 x4 extr, Normal tone, Normal affect - Studies Medications List Reviewed: Yes Assessment & Plan Discharge Plan: Home Plan to discharge in: 24 Hours Physician Review Additional Text: Impression: Abdominal pain secondary to acute on chronic pancreatitis secondary to hypertriglyceridemia Diabetes mellitus type 2, insulin-dependent GERD Fatty liver Obesity, BMI 33 Plan: Abdominal pain secondary to acute on chronic pancreatitis secondary to hypertriglyceridemia: Patient doing well this time. Triglycerides near 500. Will discontinue insulin drip. Patient tolerating clear liquid diet. Will transfer the patient to the floor. Will advance diet as tolerated to a soft diet. Will continue with pain control medication. Will continue with fish oil and fenofibrate. Anticipate discharge tomorrow if doing well. Diabetes mellitus type 2, insulin-dependent: Insulin drip has been discontinued. Will continue with basal insulin. Will monitor closely. Will provide sliding scale. GERD: Continue with PPI. Fatty liver: Lifestyle modification education addressed in detail. Weight loss will be necessary in the future. Obesity, BMI 33: Continue with lifestyle modification education. Time Spent Managing Pts Care (In Minutes): 55
[2018-02-05] MEDS: NACHLORIDE 0.45% 1,000 ML IV SCH (05:13)
[2018-02-05 06:09] LABS: Absolute Lymphocytes (CBC) 1.4 K/uL (0.7-4.9); Absolute Monocytes 0.4 K/uL (0.1-1.3); Absolute Neutrophil 3.4 K/uL (1.8-8.0); Basophils % 0.3 % (0-1.3); Eosinophils % 1.8 % (0-4.4); Hematocrit 36.9 % (39.6-49.0); Lymphocytes % 27.1 % (15.3-44.8); MCV 82.5 fL (80-100); MPV 9.2 fL (7.6-11.3); Monocytes % 6.9 % (3.3-12.3); RBC Red Blood Cell Count 4.47 M/uL (4.33-5.43)
[2018-02-05 06:45] LABS: ALT/SGPT 81 U/L (12-78); AST/SGOT 49 U/L (15-37); Albumin 3.2 g/dL (3.4-5.0); Alkaline Phosphatase 61 U/L (45-117); BUN Blood Urea Nitrogen 7 mg/dL (7-18); Bicarbonate 25 mmol/L (21-32); Bilirubin Total 0.8 mg/dL (0.2-1.0); Glucose Level 108 mg/dL (74-106); Lipase 617 U/L (73-393); Potassium 3.6 mmol/L (3.5-5.1); Protein, Total 7.3 g/dL (6.4-8.2); Sodium Level 140 mmol/L (136-145)
[2018-02-05] MEDS: INSULIN -REGULAR HUMAN 50 UNIT/0.5 ML ML SQ SCH ×2 (07:30→11:30)
[2018-02-05] MEDS ORDERED: PANTOPRAZOLE 40MG TABLET PO SCH (07:30)
[2018-02-05] MEDS: INSULIN GLARGINE 100 UNITS/ML SQ SCH (08:00)
[2018-02-05] MEDS ORDERED: POTASSIUM CL SA 10 MEQ TAB PO ONE (08:00)
[2018-02-05] MEDS: FENOFIBRATE 160 MG TAB PO SCH (08:05)
[2018-02-05] MEDS: ENOXAPARIN 40 MG/0.4 ML SQ SCH (08:40)
[2018-02-05] MEDS: DOCOSAHEXANOIC AC/EPA 1000 MG PO SCH (08:40)
[2018-02-05 10:50] VITALS: BP 119/74; TEMP 98.1; O2SAT 98
--- NOTE | 2018-02-05 10:58 | P.DS ---
Admission Date: 01/31/18 Discharge Date: 02/05/18 Primary Care Provider: Drew Baugh NP([facility]) Disposition: ROUTINE DISCHARGE Discharge Condition: GOOD Reason for Admission: Hypertriglyceridemia and acute pancreatitis Consultations: None Procedures: None Medical Problem List: Abdominal pain secondary to acute on chronic pancreatitis secondary to hypertriglyceridemia Diabetes mellitus type 2, insulin-dependent GERD Fatty liver Obesity, BMI 33 Brief History of Present Illness: 43 yo HM presented to the emergency room with abdominal pain. Patient found to have acute on chronic pancreatitis secondary to hypertriglyceridemia. Patient admitted for treatment. Hospital Course: Patient presented to the emergency room with abdominal pain. Patient found to have acute on chronic recurrent pancreatitis secondary to hypertriglyceridemia. Patient was transitioned to the ICU and placed on an insulin drip to help with his triglycerides. Triglycerides improved. Abdominal pain resolved. At discharge he was able tolerate diet. No significant abdominal pain, nausea, and vomiting noted at discharge. At discharge he will continue with fenofibrate 200 mg daily. Fish oil 2000 mg 1 pill twice daily has been added, he will continue with this at discharge. Patient will need to continue with a low-fat diabetic diet. Recommendation is for the patient follow up with GI as an outpatient in 2-4 weeks to monitor his progress. Strict dietary changes for low triglyceride level will need to be monitored and enforced as an outpatient. Patient has diabetes type 2 insulin dependent. This remained stable during the course of his stay. At discharge he will continue with Tresiba 20 units subcu every night. Patient will also continue with metformin 1000 mg 1 pill twice daily. Recommendation is to maintain blood sugars less than 140 fasting and less than 200 after meals. Further adjustment can be done by his PCP. Patient can follow up with his perfumer to further monitor and address. Patient has GERD. Patient will continue with Protonix 40 mg 1 pill once daily at discharge. Dietary lifestyle modification education provided as the patient has obesity with BMI 33. Patient with fatty liver. Patient will need to continue with lifestyle modification education. Patient may follow up with GI as an outpatient to further monitor and address. Vital Signs/Physical Exam: Temp Pulse Resp BP Pulse Ox 98.1 F 67 18 119/74 97 02/05/18 08:00 02/05/18 08:00 02/05/18 08:00 02/05/18 08:00 02/04/18 16:00 General: Alert, In no apparent distress, Oriented x3, Cooperative HEENT: Atraumatic, Mucous membr. moist/pink Neck: Supple, No Thyromegaly Respiratory: Clear to auscultation bilaterally, Normal air movement Cardiovascular: Normal pulses, Regular rate/rhythm Gastrointestinal: Normal bowel sounds, Soft and benign, Non-distended, No tenderness, No masses, No rebound, No guarding Musculoskeletal: No contractures, No erythema, No tenderness, No warmth Integumentary: No tenderness/swelling, No erythema, No warmth, No cyanosis Neurological: Normal speech, Normal strength at 5/5 x4 extr, Normal tone, Normal affect Lymphatics: No axilla or inguinal lymphadenopathy Laboratory Data at Discharge: WBC 5.3 K/uL (4.3-10.9) D 02/05/18 05:52 Hgb 12.5 g/dL (13.6-17.9) L 02/05/18 05:52 Hct 36.9 % (39.6-49.0) L 02/05/18 05:52 Plt Count 215 K/uL (152-406) 02/05/18 05:52 Sodium 140 mmol/L (136-145) 02/05/18 05:52 Potassium 3.6 mmol/L (3.5-5.1) 02/05/18 05:52 BUN 7 mg/dL (7-18) 02/05/18 05:52 Creatinine 0.80 mg/dL (0.55-1.3) 02/05/18 05:52 Glucose 108 mg/dL (74-106) H 02/05/18 05:52 Phosphorus Cancelled 02/02/18 11:00 Magnesium 2.0 mg/dL (1.8-2.4) 02/05/18 05:52 Total Bilirubin 0.8 mg/dL (0.2-1.0) 02/05/18 05:52 AST 49 U/L (15-37) H 02/05/18 05:52 ALT 81 U/L (12-78) H 02/05/18 05:52 Alkaline Phosphatase 61 U/L (45-117) 02/05/18 05:52 Triglycerides 579 mg/dL (<150) H 02/04/18 04:53 Cholesterol 300 mg/dL (<200) H 02/04/18 04:53 LDL Cholesterol Direct 145 mg/dL (100-129) H 02/04/18 04:53 HDL Cholesterol 33 mg/dL (40-60) L 02/04/18 04:53 Cholesterol/HDL Ratio 9.09 02/04/18 04:53 Lipase 617 U/L (73-393) H 02/05/18 05:52 Home Medications: Metformin HCl [Glucophage] 1,000 mg PO BIDWM 11/06/13 Fenofibrate,Micronized [Fenofibrate] 200 mg PO DAILY WITH BREAKFAST 07/08/17 Insulin Degludec [Tresiba Flextouch U-200] 20 units SQ BEDTIME 07/08/17 Pantoprazole [Protonix Tab*] 40 mg PO DAILY #30 tab 07/14/17 Docosahexanoic AC/Epa [Fish Oil 1,000 MG*] 2,000 mg PO BID #120 cap 02/05/18 New Medications: Docosahexanoic AC/Epa [Fish Oil 1,000 MG*] 2,000 mg PO BID #120 cap Patient Discharge Instructions: 1. Patient will need to follow up with his PCP in 1 week to follow up this hospitalization. 2. Patient presented to the emergency room with abdominal pain. Patient found to have acute on chronic recurrent pancreatitis secondary to hypertriglyceridemia. Patient was transitioned to the ICU and placed on an insulin drip to help with his triglycerides. Triglycerides improved. Abdominal pain resolved. At discharge he was able tolerate diet. No significant abdominal pain, nausea, and vomiting noted at discharge. At discharge he will continue with fenofibrate 200 mg daily. Fish oil 2000 mg 1 pill twice daily has been added, he will continue with this at discharge. Patient will need to continue with a low-fat diabetic diet. Recommendation is for the patient follow up with GI as an outpatient in 2 -4 weeks to monitor his progress. Strict dietary changes for low triglyceride level will need to be monitored and enforced as an outpatient. 3. Patient has diabetes type 2 insulin dependent. This remained stable during the course of his stay. At discharge he will continue with Tresiba 20 units subcu every night. Patient will also continue with metformin 1000 mg 1 pill twice daily. Recommendation is to maintain blood sugars less than 140 fasting and less than 200 after meals. Further adjustment can be done by his PCP. Patient can follow up with his perfumer to further monitor and address. 4. Patient has GERD. Patient will continue with Protonix 40 mg 1 pill once daily at discharge. 5. Dietary lifestyle modification education provided as the patient has obesity with BMI 33. 6. Patient with fatty liver. Patient will need to continue with lifestyle modification education. Patient may follow up with GI as an outpatient to further monitor and address. Diet: ADA Activity: Ad stanley Time spent managing pt's care (in minutes): 55
== END 2018-02-05 13:00 | disposition home or self-care (01) | DRG 440 ==
LOC: ER 23:56 → ERHOLD 01-31 04:39 → 4TH 01-31 13:52 → 3RD-ICU 02-01 15:08 → 2ND 02-04 14:00
PROVIDERS: ADMIT Hospitalist; ATTEND Family Medicine
DX: K85.90 Acute pancreatitis without necrosis or infection, unspecified (principal); K86.1 Other chronic pancreatitis; E78.1 Pure hyperglyceridemia; E11.9 Type 2 diabetes mellitus without complications; K21.9 Gastro-esophageal reflux disease without esophagitis; E66.9 Obesity, unspecified; K76.0 Fatty (change of) liver, not elsewhere classified; Z79.4 Long term (current) use of insulin; Z68.33 Body mass index [BMI] 33.0-33.9, adult; Z87.891 Personal history of nicotine dependence
CPT/HCPCS: 36415; 80048; 80053; 80061; 80076; 81003; 82962; 83690; 83735; 84100; 84132; 84478; 85025; 90670; 93005; 99285; G0008; G0009; J1170; J1650; J2175; J2270; J2405; J3475; J7030; Q2035

== ENCOUNTER 2018-03-29 14:01 | Inpatient (IN) | payer OTHER ==
--- OUTSIDE RECORDS SUMMARY | 2018-03-29 14:03 | XMS REPORT ---
:1975 [facility] Address [address] [place] [address] [address] [place] [address] Care Team Providers Name Role Phone Unavailable Unavailable Unavailable Problems This patient has no known problems. Allergies, Adverse Reactions, Alerts This patient has no known allergies or adverse reactions. Medications This patient has no known medications.
[2018-03-29] MEDS ORDERED: KETOROLAC 30 MG/ML INJ ONE (15:18)
[2018-03-29] MEDS ORDERED: ONDANSETRON 4 MG/2 ML VIAL ONE (15:18)
[2018-03-29 15:54] LABS: Absolute Lymphocytes (CBC) 1.5 K/uL (0.7-4.9); Absolute Monocytes 0.3 K/uL (0.1-1.3); Absolute Neutrophil 7.8 K/uL (1.8-8.0); Basophils % 1.3 % (0-1.3); Eosinophils % 0.9 % (0-4.4); Lymphocytes % 15.1 % (15.3-44.8); MPV 9.8 fL (7.6-11.3); Monocytes % 3.3 % (3.3-12.3); RBC Red Blood Cell Count 4.76 M/uL (4.33-5.43)
[2018-03-29 16:19] LABS: ALT/SGPT 55 U/L (12-78); AST/SGOT 45 U/L (15-37); Albumin 3.7 g/dL (3.4-5.0); Alkaline Phosphatase 65 U/L (45-117); BUN Blood Urea Nitrogen 15 mg/dL (7-18); Bicarbonate 23 mmol/L (21-32); Bilirubin Direct < 0.1 mg/dL (0-0.2); Bilirubin Total 0.6 mg/dL (0.2-1.0); Glucose Level 202 mg/dL (74-106); Lipase 2698 U/L (73-393); Potassium 4.4 mmol/L (3.5-5.1); Protein, Total 7.8 g/dL (6.4-8.2); Sodium Level 140 mmol/L (136-145)
[2018-03-29 16:39] LABS: Hematocrit 38.5 % (39.6-49.0)
[2018-03-29 16:45] LABS: Platelet Estimate ADEQ; Urine White Blood Cell Casts OK
[2018-03-29 16:46] LABS: Blood Morphology Comment NOT SEEN (NOT SEEN)
--- NOTE | 2018-03-29 17:37 | ER ---
Nurse's Notes [facility] Name: Javier Rutherford Age: 43 yrs Sex: Male : 1975 Arrival Date: 03/29/2018 Time: 14:04 Bed 19 Private MD: Diagnosis: Other chronic pancreatitis Presentation: 03/29 14:14 Presenting complaint: Patient states: LUQ abdominal pain that started this AM. aj Transition of care: patient was not received from another setting of care. Onset of symptoms was March 29, 2018. Risk Assessment: Do you want to hurt yourself or someone else? Patient reports no desire to harm self or others. Initial Sepsis Screen: Does the patient meet any 2 criteria? No. Patient's initial sepsis screen is negative. Does the patient have a suspected source of infection? No. Patient's initial sepsis screen is negative. Care prior to arrival: None. 14:14 Method Of Arrival: Ambulatory aj 14:14 Acuity: HANY 3 aj Triage Assessment: 14:15 General: Appears in no apparent distress. uncomfortable, Behavior is calm, cooperative, aj appropriate for age. Pain: Complains of pain in left upper quadrant. Neuro: Level of Consciousness is awake, alert, obeys commands, Oriented to person, place, time, situation, Appropriate for age. Respiratory: Airway is patent Respiratory effort is even, unlabored, Respiratory pattern is regular, symmetrical. GI: Reports upper abdominal pain, nausea. Derm: Skin is intact, is healthy with good turgor, Skin is pink, warm \T\ dry. normal. Historical: - Allergies: 14:15 No Known Allergies; aj - Home Meds: 14:15 fenofibrate 200 mg Oral tab 1 cap once daily [Active]; metformin 1,000 mg Oral tab 1 aj tab 2 times per day [Active]; Tresiba FlexTouch U-100 subcutaneous [Active]; - PMHx: 14:15 Diabetes - NIDDM; fatty liver; Hyperlipidemia; Pancreatitis; aj - PSHx: 14:15 Cholecystectomy; Hernia repair; aj - Immunization history:: Adult Immunizations up to date. - Social history:: Smoking status: Patient/guardian denies using tobacco. - Ebola Screening: : Patient negative for fever greater than or equal to 101.5 degrees Fahrenheit, and additional compatible Ebola Virus Disease symptoms Patient denies exposure to infectious person Patient denies travel to an Ebola-affected area in the 21 days before illness onset No symptoms or risks identified at this time. Screenin:50 Abuse screen: Denies threats or abuse. Nutritional screening: No deficits noted. em Tuberculosis screening: No symptoms or risk factors identified. Fall Risk None identified. Assessment: 14:50 General: Appears in no apparent distress. uncomfortable, Behavior is calm, cooperative, em Denies fever. Pain: Complains of pain in left upper quadrant Pain currently is 10 out of 10 on a pain scale. Pain began this morning after eating. Neuro: Level of Consciousness is awake, alert, obeys commands, Oriented to person, place, time, situation. Cardiovascular: Denies chest pain. Respiratory: Airway is patent Respiratory effort is even, unlabored, Respiratory pattern is regular, symmetrical. GI: Abdomen is flat, Bowel sounds present X 4 quads. Abd is soft X 4 quads Abdomen is tender to palpation in left upper quadrant Reports nausea, Patient currently denies vomiting. Derm: Skin is intact, Skin is dry, Skin is jaundiced. Musculoskeletal: Range of motion: intact in all extremities. 14:50 Reassessment: I agree with assessment completed by ROBLES Clemens aa5 15:49 Reassessment: Patient appears in no apparent distress at this time. lab recollect ch performed and sent to lab by myself. pt asked if he needed anything right now, pt states no. pt HOB lowered for comfort, pt states it is more comfortable. 17:22 Reassessment: Patient appears in no apparent distress at this time. Patient and/or em family updated on plan of care and expected duration. Pain level reassessed. Patient is alert, oriented x 3, equal unlabored respirations, skin warm/dry/pink. Patient states feeling better. 18:45 Reassessment: Patient appears in no apparent distress at this time. Patient and/or em family updated on plan of care and expected duration. Pain level reassessed. Patient is alert, oriented x 3, equal unlabored respirations, skin warm/dry/pink. rates pain 7/10, Dr. Roper at bedside. 18:50 Reassessment: verbal order received from Dr. Roper for 1 L NS bolus, 100 ml/hr NS, and em 1 mg of morphin. 19:22 Reassessment: Patient appears in no apparent distress at this time. No changes from jd3 previously documented assessment. Patient and/or family updated on plan of care and expected duration. Pain level reassessed. Patient is alert, oriented x 3, equal unlabored respirations, skin warm/dry/pink. Vital Signs: 14:15 BP 150 / 90; Pulse 69; Resp 19; Temp 98.1; Pulse Ox 99% on R/A; Weight 99.79 kg; Height aj 5 ft. 8 in. (172.72 cm); 15:49 BP 146 / 82; Pulse 64; Resp 14; Pulse Ox 99% on R/A; ch 17:22 BP 140 / 87; Pulse 72; Resp 16; Pulse Ox 99% on R/A; em 19:23 BP 141 / 85; Pulse 72; Resp 16 S; Pulse Ox 98% on R/A; jd3 14:15 Body Mass Index 33.45 (99.79 kg, 172.72 cm) aj ED Course: 14:04 Patient arrived in ED. mr 14:15 Triage completed. aj 14:15 Arm band placed on left wrist. Patient placed in waiting room, Patient notified of wait aj time. 14:35 Pietro Lewis MD is Attending Physician. tw4 14:38 Oz Rios LVN is Primary Nurse. em 14:50 Patient has correct armband on for positive identification. Placed in gown. Bed in low em position. Call light in reach. Side rails up X2. Pulse ox on. NIBP on. 17:35 David Roper MD is Hospitalizing Provider. tw4 19:29 Primary Nurse role handed off by Oz Rios LVN jd3 19:29 Stephen Fuentes RN is Primary Nurse. jd3 19:38 IV is patent, with fluids infusing freely, with good blood return, 20 G placed to right jd3 AC per day shift ED staff.. 19:41 No provider procedures requiring assistance completed. Patient admitted, IV remains in bb place. Administered Medications: 15:08 Drug: Zofran 2 mg Route: IVP; Site: right antecubital; aa5 17:20 Follow up: Response: No adverse reaction; Nausea is decreased em 15:08 Drug: TORadol 30 mg Route: IVP; Site: right antecubital; aa5 17:20 Follow up: Response: No adverse reaction; Pain is decreased em 18:57 Drug: NS 0.9% 1000 ml Route: IV; Rate: 1 bolus; Site: right antecubital; jd3 19:49 Follow up: Response: No adverse reaction; IV Status: Completed infusion jd3 18:57 Drug: NS 0.9% 1000 ml Route: IV; Rate: 100 ml/hr; Site: right antecubital; em 19:49 Follow up: Response: No adverse reaction; IV Status: Infusion continued upon admission jd3 18:57 Drug: morphine 1 mg Route: IVP; Site: right antecubital; jd3 19:50 Follow up: Response: No adverse reaction jd3 Outcome: 17:36 Decision to Hospitalize by Provider. tw4 19:41 Admitted to Tele accompanied by tech, via wheelchair, room 410, with chart, Report bb called to Ralf Amaya RN 19:41 Condition: stable 19:51 Patient left the ED. jd3 Signatures: Adrianne Penaloza, RN Renee Walsh ch, RN RN Edith Parish Oz Rios, COMPUTER SYSTEMS SOFTWARE ARCHITECT COMPUTER SYSTEMS SOFTWARE ARCHITECT em Libertad Monae, RN RN Diana Norris, RN RN Stephen Donaldson RN RN jd3 Pietro Lewis MD MD tw4
--- NOTE | 2018-03-29 17:37 | EDPHYS ---
Physician Documentation [facility] Name: Javier Rutherford Age: 43 yrs Sex: Male : 1975 Arrival Date: 03/29/2018 Time: 14:04 Bed 19 Private MD: ED Physician Pietro Lewis HPI: 03/29 18:31 This 43 yrs old Male presents to ER via Ambulatory with complaints of tw4 Abdominal Pain. 18:31 The patient presents with abdominal pain. Onset: The symptoms/episode began/occurred tw4 today. The symptoms do not radiate. Associated signs and symptoms: none. The symptoms are described as dull. Severity of pain: At its worst the pain was moderate. The patient has experienced similar episodes in the past, multiple times, and the symptoms today are exactly the same, to when the patient was apparently diagnosed with pancreatitis. Historical: - Allergies: 14:15 No Known Allergies; aj - Home Meds: 14:15 fenofibrate 200 mg Oral tab 1 cap once daily [Active]; metformin 1,000 mg Oral tab 1 aj tab 2 times per day [Active]; Tresiba FlexTouch U-100 subcutaneous [Active]; - PMHx: 14:15 Diabetes - NIDDM; fatty liver; Hyperlipidemia; Pancreatitis; aj - PSHx: 14:15 Cholecystectomy; Hernia repair; aj - Immunization history:: Adult Immunizations up to date. - Social history:: Smoking status: Patient/guardian denies using tobacco. - Ebola Screening: : Patient negative for fever greater than or equal to 101.5 degrees Fahrenheit, and additional compatible Ebola Virus Disease symptoms Patient denies exposure to infectious person Patient denies travel to an Ebola-affected area in the 21 days before illness onset No symptoms or risks identified at this time. ROS: 18:31 Constitutional: Negative for fever, chills, and weight loss, Eyes: Negative for injury, tw4 pain, redness, and discharge, Cardiovascular: Negative for chest pain, palpitations, and edema, Respiratory: Negative for shortness of breath, cough, wheezing, and pleuritic chest pain, Back: Negative for injury and pain. 18:31 Abdomen/GI: Positive for abdominal pain, nausea, abdominal cramps, abdominal distension, Negative for vomiting. Exam: 18:31 Constitutional: This is a well developed, well nourished patient who is awake, alert, tw4 and in no acute distress. Head/Face: Normocephalic, atraumatic. Chest/axilla: Normal chest wall appearance and motion. Nontender with no deformity. No lesions are appreciated. Cardiovascular: Regular rate and rhythm with a normal S1 and S2. No gallops, murmurs, or rubs. Normal PMI, no JVD. No pulse deficits. Respiratory: Lungs have equal breath sounds bilaterally, clear to auscultation and percussion. No rales, rhonchi or wheezes noted. No increased work of breathing, no retractions or nasal flaring. Back: No spinal tenderness. No costovertebral tenderness. Full range of motion. MS/ Extremity: Pulses equal, no cyanosis. Neurovascular intact. Full, normal range of motion. Neuro: Awake and alert, GCS 15, oriented to person, place, time, and situation. Cranial nerves II-XII grossly intact. Motor strength 5/5 in all extremities. Sensory grossly intact. Cerebellar exam normal. Normal gait. 18:31 Abdomen/GI: Inspection: abdomen appears normal, Bowel sounds: diminished, in all quadrants, Palpation: moderate abdominal tenderness, in the epigastric area. Vital Signs: 14:15 BP 150 / 90; Pulse 69; Resp 19; Temp 98.1; Pulse Ox 99% on R/A; Weight 99.79 kg; Height aj 5 ft. 8 in. (172.72 cm); 15:49 BP 146 / 82; Pulse 64; Resp 14; Pulse Ox 99% on R/A; ch 17:22 BP 140 / 87; Pulse 72; Resp 16; Pulse Ox 99% on R/A; em 19:23 BP 141 / 85; Pulse 72; Resp 16 S; Pulse Ox 98% on R/A; jd3 14:15 Body Mass Index 33.45 (99.79 kg, 172.72 cm) aj MDM: 14:35 Patient medically screened. tw4 18:31 Differential diagnosis: AAA, gastritis, gastroesophageal reflux disease, Herpes Zoster, tw4 pancreatitis, Peptic Ulcer Disease, Perf. Duodenal Ulcer, Perf. Gastric Ulcer, Peritonitis. Data reviewed: vital signs, nurses notes. Data interpreted: Pulse oximetry: Interpretation: normal. Counseling: I had a detailed discussion with the patient and/or guardian regarding: the historical points, exam findings, and any diagnostic results supporting the discharge/admit diagnosis, lab results, radiology results. Physician consultation: David Roper MD regarding admission, need to evaluate the patient as soon as possible, and will see patient in ED. ED course: Pt laboratory evaluation reveals pancreatitis. Despite analgesia in the ED, pt has continued, will admit patient fro hydration and pain control. 03/29 14:49 Order name: Basic Metabolic Panel 03/29 14:49 Order name: CBC with Diff 03/29 14:49 Order name: Creatinine for Radiology 03/29 14:49 Order name: Hepatic Function 03/29 14:49 Order name: Lipase 03/29 15:05 Order name: Amylase, Serum 03/29 16:17 Order name: Creatinine (Radiology Only); Complete Time: 17:29 EDHI 03/29 17:29 Interpretation: Within normal limits: CRE 0.91. 03/29 16:17 Order name: Amylase Level; Complete Time: 17:28 HI 03/29 17:28 Interpretation: Normal except: LAILA 158. 03/29 16:20 Order name: Basic Metabolic Panel; Complete Time: 17:28 03/29 17:28 Interpretation: Normal except: GLUC 202; GFR 87. 03/29 16:20 Order name: Liver (Hepatic) Function; Complete Time: 17:28 03/29 17:28 Interpretation: Normal except: AST 45; GLOB 4.1; A/G 0.9. 03/29 16:20 Order name: Lipase; Complete Time: 17:28 HI 03/29 17:28 Interpretation: Normal except: LIP 2698. 03/29 16:41 Order name: CBC with Automated Diff; Complete Time: 17:28 HI 03/29 17:28 Interpretation: Normal except: HGB 12.7; MCV 79.9; HCT 38.5; MCH 26.7. 03/29 16:47 Order name: CBC Smear Scan 03/29 17:31 Order name: Lipid Profile 03/29 14:49 Order name: IV Saline Lock; Complete Time: 15:24 03/29 14:49 Order name: Labs collected and sent; Complete Time: 15:24 03/29 15:29 Order name: Labs - recollect needed; Complete Time: 15:53 eb 03/29 17:59 Order name: Lipid Profile EDMS 03/29 18:12 Order name: LDL, Direct EDMS Administered Medications: 15:08 Drug: Zofran 2 mg Route: IVP; Site: right antecubital; aa5 17:20 Follow up: Response: No adverse reaction; Nausea is decreased em 15:08 Drug: TORadol 30 mg Route: IVP; Site: right antecubital; aa5 17:20 Follow up: Response: No adverse reaction; Pain is decreased em 18:57 Drug: NS 0.9% 1000 ml Route: IV; Rate: 1 bolus; Site: right antecubital; jd3 19:49 Follow up: Response: No adverse reaction; IV Status: Completed infusion jd3 18:57 Drug: NS 0.9% 1000 ml Route: IV; Rate: 100 ml/hr; Site: right antecubital; em 19:49 Follow up: Response: No adverse reaction; IV Status: Infusion continued upon admission jd3 18:57 Drug: morphine 1 mg Route: IVP; Site: right antecubital; jd3 19:50 Follow up: Response: No adverse reaction jd3 Disposition: 03/29/18 17:36 Hospitalization ordered by David Roper for Observation. Preliminary diagnosis is Other chronic pancreatitis. - Bed requested for Telemetry/MedSurg (observation). - Status is Observation. jd3 - Condition is Stable. - Problem is an ongoing problem. - Symptoms are unchanged. UTI on Admission? No Signatures: Dispatcher [employer] EDHI Renee Álvarez RN Oz Reeves, MANDARIN TEACHER MANDARIN TEACHER Elizabeth Willingham ms Diana Hay, RN RN aa5 Stephen Fuentes RN RN jd3 Pietro Lewis MD MD tw4 Razia Darby Corrections: (The following items were deleted from the chart) 18:43 17:36 Hospitalization Ordered by David Roper MD for Observation. Preliminary diagnosis ms is Other chronic pancreatitis. Bed requested for Telemetry/MedSurg (observation). Status is Observation. Condition is Stable. Problem is an ongoing problem. Symptoms are unchanged. UTI on Admission? No. tw4 19:51 18:43 03/29/2018 17:36 Hospitalization Ordered by David Roper MD for Observation. jd3 Preliminary diagnosis is Other chronic pancreatitis. Bed requested for Telemetry/MedSurg (observation). Status is Observation. Condition is Stable. Problem is an ongoing problem. Symptoms are unchanged. UTI on Admission? No. ms
[2018-03-29 17:58] LABS: HDL Cholesterol 23 mg/dL (40-60); LDL Cholesterol, Calculated ND (<130)
[2018-03-29 18:10] LABS: LDL, Direct 56 mg/dL (100-129)
[2018-03-29] MEDS ORDERED: MORPHINE 4 MG/ML SYR ONE ×2 (18:59→20:35)
[2018-03-29] MEDS ORDERED: NA CHLORIDE 0.9% 2,000 ML ONE (18:59)
[2018-03-29] MEDS: NA CHLORIDE 0.9% 1,000 ML IV SCH (20:13)
[2018-03-29] MEDS ORDERED: ONDANSETRON 4 MG/2 ML VIAL IV PRN (20:13)
[2018-03-29] MEDS ORDERED: MORPHINE 2 MG/ML SYR IV PRN (20:13)
[2018-03-29 20:58] VITALS: BMI 34.0
[2018-03-29] MEDS ORDERED: INSULIN -REGULAR HUMAN 50 UNIT/0.5 ML ML SQ SCH (21:00)
[2018-03-30] MEDS ORDERED: MORPHINE 4 MG/ML SYR ONE (01:50)
[2018-03-30 04:40] LABS: Absolute Lymphocytes (CBC) 1.6 K/uL (0.7-4.9); Absolute Monocytes 0.4 K/uL (0.1-1.3); Absolute Neutrophil 5.4 K/uL (1.8-8.0); Basophils % 0.5 % (0-1.3); Eosinophils % 1.2 % (0-4.4); Lymphocytes % 21.2 % (15.3-44.8); Monocytes % 5.9 % (3.3-12.3); RBC Red Blood Cell Count 4.45 M/uL (4.33-5.43)
[2018-03-30 05:38] LABS: ALT/SGPT 53 U/L (12-78); AST/SGOT 38 U/L (15-37); Albumin 3.2 g/dL (3.4-5.0); Alkaline Phosphatase 62 U/L (45-117); BUN Blood Urea Nitrogen 17 mg/dL (7-18); Bicarbonate 22 mmol/L (21-32); Bilirubin Total 0.6 mg/dL (0.2-1.0); Glucose Level 163 mg/dL (74-106); Protein, Total 6.8 g/dL (6.4-8.2); Sodium Level 142 mmol/L (136-145)
[2018-03-30] MEDS: INSULIN -REGULAR HUMAN 50 UNIT/0.5 ML ML SQ SCH ×4 (05:42→17:11)
[2018-03-30] MEDS: NA CHLORIDE 0.9% 1,000 ML IV SCH ×3 (05:59→19:43)
[2018-03-30] MEDS: MORPHINE 4 MG/ML SYR IV PRN ×2 (08:19→16:33)
[2018-03-30] MEDS: ENOXAPARIN 40 MG/0.4 ML SQ SCH (08:20)
[2018-03-30 09:52] LABS: Urine Appearance CLEAR; Urine Bilirubin NEGATIVE (NEG); Urine Blood NEGATIVE (NEG); Urine Color YELLOW; Urine Glucose NEGATIVE (NEG); Urine Microscopic Reflex NO UMIC; Urine Protein NEGATIVE (NEG); Urine Specific Gravity 1.025 (1.005-1.030); Urine Urobilinogen 0.2 mg/dL (0.2-1.0); Urine pH 5.5 (5.0-7.0)
[2018-03-30] MEDS: TRAMADOL HCL 50 MG TAB PO PRN (11:41)
--- NOTE | 2018-03-30 19:15 | P.HP ---
Certification for Inpatient Patient admitted to: Inpatient Practitioner: I am a practitioner with admitting privileges, knowledge of patient current condition, hospital course, and medical plan of care. Services: Services provided to patient in accordance with Admission requirements found in Title 42 Section 412.3 of the Code of Federal Regulations Patient History Date of Service: 03/29/18 Reason for admission: Acute pancreatitis History of Present Illness: Pale with history of prior pancreatitis episodes, last 1 few months ago, hyperlipidemia with admitted for right upper quadrant abdominal pain that started 2 days ago and has been progressively worsening. Per patient and family at bedside, patient does not drink any alcohol, is a non smoker. he does have a history of hyperlipidemia/hypertriglyceridemia. He was last treated for pancreatitis a few months ago. In the ER, patient received IV fluids, pain control. At the time of my exam, patient was alert oriented x3, mild to moderate distress secondary to pain and hemodynamically stable. Allergies No Known Allergies Allergy (Verified 01/31/18 05:25) Home Medications: Docosahexanoic AC/Epa [Fish Oil 1,000 MG*] 1 cap PO DAILY 03/29/18 Fenofibrate,Micronized [Fenofibrate] 200 mg PO BEDTIME 03/29/18 Insulin Degludec [Tresiba Flextouch U-100] 20 units SQ DAILY 03/29/18 Metformin HCl [Glucophage] 1,000 mg PO BIDWM 03/29/18 Pantoprazole Sodium [Protonix] 40 mg PO DAILY 03/29/18 - Past Medical/Surgical History Has patient received pneumonia vaccine in the past: Yes Diabetic: Yes -: pancreatitis -: hyperlipidemia -: DM2 -: pancreatic mass -: fatty liver -: Cholecystectomy -: Hernia sx -: vasectomy - Family History Sister -: Diabetes, Cancer Mother -: Diabetes Brother -: GI disease, Diabetes Notes: Pancreatitis - Social History Smoking Status: Current every day smoker Alcohol use: Yes CD- Drugs: No Caffeine use: Yes Place of Residence: Home Review of Systems 10-point ROS is otherwise unremarkable Physical Examination - Vital Signs Temperature: 97.8 F Blood Pressure: 140/81 Pulse: 84 Respirations: 18 Pulse Ox (%): 99 - Physical Exam General: Alert, In no apparent distress, Oriented x3 HEENT: Atraumatic, PERRLA, Mucous membr. moist/pink, EOMI, Sclerae nonicteric Neck: Supple, 2+ carotid pulse no bruit, No LAD, Without JVD or thyroid abnormality Respiratory: Clear to auscultation bilaterally, Normal air movement Cardiovascular: Regular rate/rhythm, Normal S1 S2 Gastrointestinal: Normal bowel sounds, Tenderness Musculoskeletal: No tenderness Integumentary: No rashes Neurological: Normal gait, Normal speech, Normal strength at 5/5 x4 extr, Normal tone, Normal affect Lymphatics: No axilla or inguinal lymphadenopathy Assessment and Plan - Problems (Diagnosis) (1) Abdominal pain Onset Date: 04/28/14 Current Visit: No Status: Acute (2) Acute pancreatitis Onset Date: 03/21/14 Current Visit: No Status: Acute Qualifiers: (3) hypertriglyceridemia induce pancreatitis Onset Date: 07/08/17 Current Visit: No Status: Acute (4) Diabetes mellitus Onset Date: 11/14/16 Current Visit: No Status: Chronic Qualifiers: (5) Obesity (BMI 30-39.9) Onset Date: 11/14/16 Current Visit: No Status: Chronic - Plan This is a 43-year-old male with: Abdominal pain acute pancreatitis Hypertriglyceridemia Keep NPO IV fluids, IV pain control Hemodynamically stable: White stable. No need for antibiotics at this time. Restart home medications for her Lopressor anemia Diabetes mellitus, type 2 Strict blood sugar control, Accu-Cheks and sliding scale insulin. DVT prophylaxis: Lovenox GI prophylaxis: Protonix, home medication Diet: NPO Disposition: Admit to floor with tele. Keep NPO, IV fluids and pain control. Discharge Plan: Home - Advance Directives Does patient have a Living Will: No Does patient have a Durable POA for Healthcare: No
--- NOTE | 2018-03-30 19:16 | P.PN ---
Subjective Date of Service: 03/30/18 Chief Complaint: Acute pancreatitis Subjective: No C/O voiced Patient seen and examined at bedside. No family at bedside. Chart reviewed and case discussed with nursing staff. Review of Systems 10-point ROS is otherwise unremarkable Physical Examination - Vital Signs Temperature: 97.8 F Blood Pressure: 140/81 Pulse: 84 Respirations: 18 Pulse Ox (%): 99 - Physical Exam General: Alert, Oriented x3, Mild distress HEENT: Atraumatic, PERRLA, EOMI Neck: Supple, JVD not distended Respiratory: Clear to auscultation bilaterally, Normal air movement Cardiovascular: Regular rate/rhythm, Normal S1 S2 Gastrointestinal: Normal bowel sounds, Tenderness Musculoskeletal: No tenderness Integumentary: No rashes Neurological: Normal speech, Normal tone, Normal affect Lymphatics: No axilla or inguinal lymphadenopathy Assessment And Plan - Current Problems (Diagnosis) (1) Abdominal pain Onset Date: 04/28/14 Current Visit: No Status: Acute (2) Acute pancreatitis Onset Date: 03/21/14 Current Visit: No Status: Acute Qualifiers: (3) hypertriglyceridemia induce pancreatitis Onset Date: 07/08/17 Current Visit: No Status: Acute (4) Diabetes mellitus Onset Date: 11/14/16 Current Visit: No Status: Chronic Qualifiers: (5) Obesity (BMI 30-39.9) Onset Date: 11/14/16 Current Visit: No Status: Chronic - Plan This is a 43-year-old male with: Abdominal pain acute pancreatitis Hypertriglyceridemia Keep NPO IV fluids, IV pain control Hemodynamically stable: White stable. No need for antibiotics at this time. Restart home medications for hypertriglyceridemia Diabetes mellitus, type 2 Strict blood sugar control, Accu-Cheks and sliding scale insulin. DVT prophylaxis: Lovenox GI prophylaxis: Protonix, home medication Diet: NPO Disposition: Pending symptomatic improvement Keep NPO, IV fluids and pain control.
[2018-03-30] MEDS ORDERED: HOME MED 1 EA UNK (Fenofibrate,Micronized [Fenofibrate] 200 MG) PO SCH (21:00)
[2018-03-31] MEDS: MORPHINE 4 MG/ML SYR IV PRN (04:40)
[2018-03-31 05:00] LABS: Absolute Lymphocytes (CBC) 1.9 K/uL (0.7-4.9); Absolute Monocytes 0.4 K/uL (0.1-1.3); Absolute Neutrophil 3.4 K/uL (1.8-8.0); Basophils % 0.5 % (0-1.3); Eosinophils % 2.8 % (0-4.4); Lymphocytes % 32.1 % (15.3-44.8); MPV 10.2 fL (7.6-11.3); Monocytes % 6.3 % (3.3-12.3); RBC Red Blood Cell Count 4.36 M/uL (4.33-5.43)
[2018-03-31 05:28] LABS: ALT/SGPT 49 U/L (12-78); AST/SGOT 39 U/L (15-37); Alkaline Phosphatase 64 U/L (45-117); BUN Blood Urea Nitrogen 8 mg/dL (7-18); Bicarbonate 21 mmol/L (21-32); Bilirubin Total 0.8 mg/dL (0.2-1.0); Glucose Level 147 mg/dL (74-106); Potassium 3.7 mmol/L (3.5-5.1); Sodium Level 139 mmol/L (136-145)
[2018-03-31] MEDS: INSULIN -REGULAR HUMAN 50 UNIT/0.5 ML ML SQ SCH ×5 (05:34→20:55)
[2018-03-31] MEDS ORDERED: POTASSIUM CL SA 10 MEQ TAB PO ONE (05:38)
[2018-03-31] MEDS: PANTOPRAZOLE 40MG TABLET PO SCH (08:57)
[2018-03-31] MEDS: DOCOSAHEXANOIC AC/EPA 1000 MG PO SCH (08:57)
[2018-03-31] MEDS: ENOXAPARIN 40 MG/0.4 ML SQ SCH (08:57)
[2018-03-31] MEDS ORDERED: INSULIN DEGLUDEC 20 UNIT SQ SCH (09:00)
[2018-03-31 10:12] LABS: Amylase Level 78 U/L (25-115); Lipase 773 U/L (73-393)
[2018-03-31] MEDS: NA CHLORIDE 0.9% 1,000 ML IV SCH ×2 (11:12→21:13)
[2018-03-31] MEDS: TRAMADOL HCL 50 MG TAB PO PRN ×2 (11:12→20:10)
--- NOTE | 2018-03-31 18:44 | PN ---
Date of Progress Note: 03/31/2018 Subjective: The patient is seen and examined. Chart reviewed, and case discussed with RN. The patient states his abdominal pain has improved. No further vomiting. Medications: List reviewed. Physical Examination: Vital signs: Temperature 98.2, heart rate 75, blood pressure 141/82, respirations 16, O2 of 99% on room air. General: Awake, alert, oriented x3. An obese male, ill-appearing. CV: S1, S2. Regular rate and rhythm. No murmurs. Respiratory: Moving air well bilaterally. No wheezing. Gastrointestinal: Abdomen is soft. Mild tenderness to palpation in the epigastric region. Mild voluntary guarding. No rigidity. Bowel sounds are positive. Extremities: No clubbing, cyanosis, or edema. Neuro: Cranial nerves 2 through 12 intact grossly. No focal neurological deficit. Speech is normal. Laboratory Data: Sodium 139, potassium 3.7, chloride 107, CO2 of 21, BUN 8, creatinine 0.74, glucose 147, calcium 8.1. Hemoglobin A1c is 9.3. AST 39, ALT 49, albumin 3, amylase 78, lipase 73. WBC 5.8, H and H 12.3 and 35, platelets 175, neutrophils 58%. Assessment: A 43-year-old male with: 1. Acute abdominal pain, epigastric, secondary to pancreatitis. 2. Acute pancreatitis, secondary to hypertriglyceridemia, improving. Lipase levels trending down. Amylase levels normalized. We will continue IV fluids and pain control. We will start on clear liquids and advance as tolerated. 3. Diabetes mellitus type 2 with long-term use of insulin with hyperglycemia, uncontrolled. Hemoglobin A1c is 9.3%. 4. Obesity, BMI 34. 5. Hypertriglyceridemia. 6. Gastrointestinal and deep venous thrombosis prophylaxis with Lovenox and Protonix. 7. Fatty liver disease. Likely cause of increased LFTs Plan: Advance diet. Likely discharge in the next 24 to 48 hours depending on clinical improvement. /OWEN Voice ID: [id number] Report ID: [id number] DRU
[2018-04-01] MEDS: TRAMADOL HCL 50 MG TAB PO PRN ×3 (02:42→21:03)
[2018-04-01 04:59] LABS: Absolute Lymphocytes (CBC) 1.7 K/uL (0.7-4.9); Absolute Monocytes 0.3 K/uL (0.1-1.3); Absolute Neutrophil 2.7 K/uL (1.8-8.0); Basophils % 0.6 % (0-1.3); Eosinophils % 3.4 % (0-4.4); Hematocrit 36.5 % (39.6-49.0); Lymphocytes % 34.5 % (15.3-44.8); MPV 9.8 fL (7.6-11.3); RBC Red Blood Cell Count 4.49 M/uL (4.33-5.43)
[2018-04-01 05:23] LABS: ALT/SGPT 53 U/L (12-78); AST/SGOT 31 U/L (15-37); Albumin 3.2 g/dL (3.4-5.0); Alkaline Phosphatase 61 U/L (45-117); BUN Blood Urea Nitrogen 9 mg/dL (7-18); Bicarbonate 24 mmol/L (21-32); Bilirubin Total 0.6 mg/dL (0.2-1.0); Glucose Level 101 mg/dL (74-106); Lipase 326 U/L (73-393); Magnesium 1.8 mg/dL (1.8-2.4); Phosphorus 3.7 mg/dL (2.5-4.9); Potassium 3.7 mmol/L (3.5-5.1); Protein, Total 7.1 g/dL (6.4-8.2); Sodium Level 141 mmol/L (136-145)
[2018-04-01] MEDS: INSULIN -REGULAR HUMAN 50 UNIT/0.5 ML ML SQ SCH ×4 (07:30→21:00)
[2018-04-01] MEDS: DOCOSAHEXANOIC AC/EPA 1000 MG PO SCH (08:54)
[2018-04-01] MEDS: PANTOPRAZOLE 40MG TABLET PO SCH (08:54)
[2018-04-01] MEDS: ENOXAPARIN 40 MG/0.4 ML SQ SCH (08:55)
[2018-04-01] MEDS: NA CHLORIDE 0.9% 1,000 ML IV SCH ×2 (08:55→17:08)
[2018-04-01] MEDS ORDERED: MAGNESIUM SULFATE 1 gm IVPB 1 GM/100 ML BAG IV ONE (09:00)
[2018-04-01] MEDS ORDERED: POTASSIUM 25 MEQ EFFERV TAB PO ONE (09:00)
--- NOTE | 2018-04-01 13:22 | PN ---
Date of Progress Note: 04/01/2018 Subjective: The patient is seen and examined. Chart reviewed, and case discussed with RN. The radha ent does report some pain, worsened with clear liquids, however, no vomiting. Medications: List reviewed. Physical Examination: Vital Signs: Temperature 98.5, heart rate 74, blood pressure 118/74, respirations 16, O2 of 96% on r oom air. General: Awake, alert, oriented x3. Some mild distress. An ill-appearing male, obese. CV: S1, S2. Regular rate and rhythm. No murmurs. Respiratory: Moving air well bilaterally. No wheezing or stridor. Gastrointestinal: Abdomen is soft. Tenderness to palpation in the epigastric region. No rebound or guarding. Bowel sounds positive. Extremities: No clubbing, cyanosis, or edema. Neurologic: Nonfocal. Laboratory Data: Sodium 141, potassium 3.7, chloride 106, CO2 of 24, BUN 9, creatinine 0.75, glucose 101, calcium 8.6, phosphorus 3.7, magnesium 1.8, albumin 3.2, lipase 326. WBC 4.9, H and H 12.4 and 36.5, platelets 178. Assessment: A 43-year-old male with: 1.Acute abdominal pain, epigastric, secondary to pancreatitis, improving. 2.Acute pancreatitis secondary to hypertriglyceridemia, improving. Lipase levels have normalized, h owever, clinically still has pain, nausea. No vomiting. Tolerating clear liquids. We will advance as tolerated. Continue IV fluids and pain control. 3.Diabetes mellitus type 2 with long-term use of insulin with hyperglycemia, uncontrolled. Hemoglob in A1c 9.3%. 4.Obesity, BMI 34. 5.Hypertriglyceridemia. 6.Gastrointestinal and deep venous thrombosis prophylaxis with PPI and Lovenox. Plan: Advance diet as tolerated. Likely discharge in a.m. if continues to improve and no nausea or vomiting. SA/MODL Voice ID: [id number] Report ID: [id number]
[2018-04-02] MEDS: NA CHLORIDE 0.9% 1,000 ML IV SCH (05:19)
[2018-04-02] MEDS: INSULIN -REGULAR HUMAN 50 UNIT/0.5 ML ML SQ SCH (07:30)
[2018-04-02] MEDS: ENOXAPARIN 40 MG/0.4 ML SQ SCH (08:58)
[2018-04-02] MEDS: PANTOPRAZOLE 40MG TABLET PO SCH (08:58)
[2018-04-02] MEDS: DOCOSAHEXANOIC AC/EPA 1000 MG PO SCH (08:58)
[2018-04-02 09:00] VITALS: O2SAT 96
[2018-04-02 09:52] VITALS: BP 119/66; TEMP 97.9
--- NOTE | 2018-04-03 12:20 | DS ---
Date of Discharge: 04/02/2018 Admitting Diagnoses: 1.Acute abdominal pain, epigastric. 2.Acute pancreatitis. 3.Hypertriglyceridemia. 4.Diabetes mellitus type 2, insulin requiring with hyperglycemia. 5.Obesity, BMI 34. Discharge Diagnoses: 1.Acute abdominal pain, epigastric, resolved. 2.Acute pancreatitis secondary to hypertriglyceridemia, resolved. 3.Hypertriglyceridemia. 4.Diabetes mellitus type 2 with long-term use of insulin with hyperglycemia. 5.Obesity, BMI 34. Hospital Course: The patient is a 43-year-old male with past medical history of diabetes, comes in w ith epigastric abdominal pain due to pancreatitis. Lipase levels were elevated at 2698. The patient was started on IV fluids, kept n.p.o., and IV analgesics were given. The patient's lipase improved and normalized. Initially, he was started on clear liquids, however, did not do well. The patient d id have some further nausea and vomiting. The patient's condition improved after lipase was normaliz ed. He was started on GI soft diet and the patient was then able to tolerate his diet. His pain res olved. He was counseled regarding his hypertriglyceridemia. The patient does take fenofibrate and f regina oil. The patient was also counseled regarding his diabetes, which is uncontrolled. His hemoglob in A1c was 9.3%. He understands that complications for diabetes may result in neuropathy, nephropath y, retinopathy. He needs to have annual eye exams and foot exams. The patient was then cleared for discharge and sent home in a stable condition. Activity: As tolerated. Medications: As per medication reconciliation. Followup: Follow up with primary care physician in 2 to 3 days. Return to ER for worsening conditio n. Diet: Diabetic, bland diet. Physical Examination: General: Awake, alert, oriented, no acute distress. CV: S1, S2. No murmurs. Respiratory: Moving air well bilaterally. No wheezing. Gastrointestinal: Abdomen is soft, nontender, nondistended. Positive bowel sounds. Extremities: No clubbing, cyanosis, edema. Neurologic: Nonfocal. Total time spent discharging the patient was 37 minutes. SA/MODL Voice ID: [id number] Report ID: [id number]
== END 2018-04-02 11:26 | disposition home or self-care (01) | DRG 440 ==
LOC: ER 14:01 → ERHOLD 18:13 → 4TH 19:44
PROVIDERS: ADMIT Family Medicine; ATTEND Family Medicine
DX: K85.90 Acute pancreatitis without necrosis or infection, unspecified (principal); E78.5 Hyperlipidemia, unspecified; E11.9 Type 2 diabetes mellitus without complications; K76.0 Fatty (change of) liver, not elsewhere classified; E78.1 Pure hyperglyceridemia; E66.9 Obesity, unspecified; R10.13 Epigastric pain; Z68.34 Body mass index [BMI] 34.0-34.9, adult
CPT/HCPCS: 36415; 80048; 80053; 80061; 80076; 81003; 82150; 82962; 83036; 83690; 83735; 84100; 85025; 94760; 96361; 96374; 96375; 99285; J1650; J2405; J3475; J7030

== ENCOUNTER 2019-01-27 16:39 | Emergency (ER) | payer OTHER ==
--- OUTSIDE RECORDS SUMMARY | 2019-01-27 16:41 | XMS REPORT ---
:1975 [facility] Address [address] [place] [address] [address] [place] [address] Care Team Providers Name Role Phone Unavailable Unavailable Unavailable Problems This patient has no known problems. Allergies, Adverse Reactions, Alerts This patient has no known allergies or adverse reactions. Medications This patient has no known medications.
[2019-01-27] MEDS ORDERED: MORPHINE 4 MG/ML SYR ONE ×2 (18:58→21:57)
[2019-01-27] MEDS ORDERED: ONDANSETRON 4 MG/2 ML VIAL ONE (18:59)
[2019-01-27] MEDS ORDERED: NA CHLORIDE 0.9% 1,000 ML ONE (18:59)
[2019-01-27 19:08] LABS: Absolute Lymphocytes (CBC) 1.7 K/uL (0.7-4.9); Hematocrit 35.3 % (39.6-49.0); Lymphocytes % 22.3 % (15.3-44.8); MPV 10.4 fL (7.6-11.3); RBC Red Blood Cell Count 4.32 M/uL (4.33-5.43)
[2019-01-27 20:53] LABS: ALT/SGPT 37 U/L (12-78); AST/SGOT 15 U/L (15-37); Albumin 3.8 g/dL (3.4-5.0); Alkaline Phosphatase 58 U/L (45-117); BUN Blood Urea Nitrogen 20 mg/dL (7-18); Bicarbonate 27 mmol/L (21-32); Bilirubin Direct < 0.1 mg/dL (0-0.2); Bilirubin Total 0.3 mg/dL (0.2-1.0); Glucose Level 180 mg/dL (74-106); Lipase 325 U/L (73-393); Potassium 4.3 mmol/L (3.5-5.1); Protein, Total 7.2 g/dL (6.4-8.2); Sodium Level 144 mmol/L (136-145)
--- NOTE | 2019-01-27 23:08 | ER ---
Nurse's Notes [facility] Name: Javier Rutherford Age: 44 yrs Sex: Male : 1975 Arrival Date: 01/27/2019 Time: 16:41 Bed 15 Private MD: Diagnosis: Upper abdominal pain, unspecified Presentation: 01/27 17:00 Presenting complaint: Patient states: "This morning I'm feeling weird at work, after aj1 lunch I'm feeling a little pain in my stomach, its coming and going and I think its the pancreas, because I've had pancreatitis before" Reports nausea. Denies vomiting, diarrhea, denies fever. Transition of care: patient was not received from another setting of care. Onset of symptoms was January 27, 2019. Risk Assessment: Do you want to hurt yourself or someone else? Patient reports no desire to harm self or others. Initial Sepsis Screen: Does the patient meet any 2 criteria? HR > 90 bpm. No. Patient's initial sepsis screen is negative. Does the patient have a suspected source of infection? Yes: Acute abdominal pain. Care prior to arrival: None. 17:00 Method Of Arrival: Ambulatory aj1 17:00 Acuity: HANY 3 aj1 Triage Assessment: 17:02 General: Appears in no apparent distress. comfortable, Behavior is calm, cooperative, aj1 appropriate for age. Pain: Complains of pain in left upper quadrant. Neuro: Level of Consciousness is awake, alert, obeys commands. Cardiovascular: Patient's skin is warm and dry. Respiratory: Airway is patent Respiratory effort is even, unlabored, Respiratory pattern is regular, symmetrical. GI: Reports upper abdominal pain, nausea, Patient currently denies diarrhea, vomiting. Historical: - Allergies: 17:02 No Known Allergies; aj1 - Home Meds: 17:02 fenofibrate 200 mg Oral tab 1 cap once daily [Active]; metformin 1,000 mg Oral tab 1 aj1 tab 2 times per day [Active]; Tresiba FlexTouch U-100 subcutaneous [Active]; - PMHx: 17:02 Diabetes - NIDDM; fatty liver; Hyperlipidemia; Pancreatitis; aj1 - Immunization history:: Flu vaccine is up to date. - Social history:: Smoking status: Patient/guardian denies using tobacco. - Ebola Screening: : Patient denies travel to an Ebola-affected area in the 21 days before illness onset. Screenin:48 Abuse screen: Denies threats or abuse. Denies injuries from another. Nutritional bp screening: No deficits noted. Tuberculosis screening: No symptoms or risk factors identified. Fall Risk None identified. Assessment: 17:02 General: SEE TRIAGE NOTE. bp 19:04 Reassessment: CT PENDING, VS STABLE ON MONITOR. bp 19:20 Reassessment: Patient appears in no apparent distress at this time. Patient is alert, lp1 oriented x 3, equal unlabored respirations, skin warm/dry/pink. Patient states pain decreased at this time Patient states feeling better. Neuro: Level of Consciousness is awake, alert, obeys commands. Respiratory: Respiratory effort is even, unlabored. Derm: Skin is pink, warm \\T\\ dry. Musculoskeletal: No deficits noted. 19:51 Reassessment: Lab at bedside for recollect. lp1 21:32 Reassessment: Patient states pain to abdomen returning at this time; Provider notified. lp1 21:57 Reassessment: Verbal order for Morphine 4mg IV from Sarah Costa NP. lp1 23:04 Reassessment: Patient appears in no apparent distress at this time. Patient is alert, fu oriented x 3, equal unlabored respirations, skin warm/dry/pink. Patient states feeling better. Vital Signs: 17:02 BP 143 / 89; Pulse 92; Resp 18; Temp 97.8; Pulse Ox 98% on R/A; Weight 104.33 kg (R); aj1 Height 5 ft. 8 in. (172.72 cm) (R); Pain 6/10; 19:00 BP 139 / 89; Pulse 77; Resp 16; Pulse Ox 99% ; bp 20:00 BP 121 / 82; Pulse 69; Resp 16; Pulse Ox 98% on R/A; lp1 21:00 BP 115 / 74; Pulse 66; Resp 16; Pulse Ox 97% on R/A; lp1 21:30 BP 128 / 81; Pulse 66; Resp 16; Pulse Ox 98% on R/A; Pain 6/10; lp1 22:53 BP 116 / 77; Pulse 69; Pulse Ox 98% ; Pain 0/10; fu 17:02 Body Mass Index 34.97 (104.33 kg, 172.72 cm) aj1 ED Course: 16:41 Patient arrived in ED. as 17:02 Triage completed. aj1 17:02 Arm band placed on Patient placed in waiting room, Patient notified of wait time. aj1 18:03 Sarah Costa [facility]-C [facility]. kb 18:03 Arpan Mtz MD is Attending Physician. kb 18:03 Severo Galvan, RN is Primary Nurse. bp 18:45 Inserted saline lock: 22 gauge in left antecubital area, using aseptic technique. Blood bp collected. 18:48 Radiology exam delayed due to lab results not completed at this time. (BUN/Creatinine). vm2 18:48 Patient has correct armband on for positive identification. Bed in low position. Call bp light in reach. Side rails up X2. Adult w/ patient. 19:06 Radiology exam delayed due to lab results not completed at this time. (BUN/Creatinine). vm2 19:10 Primary Nurse role handed off by Severo Galvan, ARACELI bp 19:25 Radiology exam delayed due to lab results not completed at this time. (BUN/Creatinine). nj 19:51 Adrienne Kelly, RN is Primary Nurse. lp1 20:22 Radiology exam delayed due to lab results not completed at this time. (BUN/Creatinine). vm2 21:[address] via wheelchair. nj 21:17 CT completed. Patient tolerated procedure well. Patient moved back from CT. nj 21:25 CT Abd/Pelvis - IV Contrast Only In Process Unspecified. EDMS 21:33 No provider procedures requiring assistance completed. lp1 23:25 IV discontinued, bleeding controlled, Pressure dressing applied. fu Administered Medications: 18:50 Drug: NS 0.9% 1000 ml Route: IV; Rate: 1000 ml; Site: left antecubital; bp 20:15 Follow up: IV Status: Completed infusion; IV Intake: 1000ml lp1 18:50 Drug: morphine 4 mg Route: IVP; Site: left antecubital; bp 19:20 Follow up: Response: Pain is decreased lp1 18:50 Drug: Zofran 4 mg Route: IVP; Site: left antecubital; bp 19:20 Follow up: Response: No adverse reaction lp1 22:00 Drug: morphine 4 mg {Note: RASS 1.} Route: IVP; Site: right antecubital; lp1 Intake: 20:15 IV: 1000ml; Total: 1000ml. lp1 Outcome: 23:08 Discharge ordered by MD. minor 23:27 Discharged to home ambulatory. fu 23:27 Condition: improved 23:27 Discharge instructions given to patient, Instructed on discharge instructions, follow up and referral plans. Demonstrated understanding of instructions, Prescriptions given X 2. 23:29 Patient left the ED. fu Signatures: Dispatcher [employer] EDPA Sarah Costa, [employer] HR DEVELOPER-C [employer] HR DEVELOPER-CkSonia Bateman, RN RN aj1 Porsche Tavares Laura, ARACELI RN lp1 Hari [place] Brad Vega RN RN fu Peltier, Brian RN RN bp
--- NOTE | 2019-01-27 23:09 | EDPHYS ---
Physician Documentation [facility] Name: Javier Rutherford Age: 44 yrs Sex: Male : 1975 Arrival Date: 01/27/2019 Time: 16:41 Bed 15 Private MD: ED Physician Arpan Mtz HPI: 01/27 22:42 This 44 yrs old Male presents to ER via Ambulatory with complaints of kb Pancreatitis. 22:45 The patient presents with abdominal pain in the left upper quadrant. Onset: The kb symptoms/episode began/occurred today. The symptoms do not radiate. Associated signs and symptoms: Pertinent positives: nausea. The symptoms are described as constant. Modifying factors: The symptoms are alleviated by nothing, the symptoms are aggravated by nothing. Severity of pain: At its worst the pain was moderate in the emergency department the pain is unchanged. The patient has experienced a previous episode. The patient has not recently seen a physician. Historical: - Allergies: 17:02 No Known Allergies; aj1 - Home Meds: 17:02 fenofibrate 200 mg Oral tab 1 cap once daily [Active]; metformin 1,000 mg Oral tab 1 aj1 tab 2 times per day [Active]; Tresiba FlexTouch U-100 subcutaneous [Active]; - PMHx: 17:02 Diabetes - NIDDM; fatty liver; Hyperlipidemia; Pancreatitis; aj1 - Immunization history:: Flu vaccine is up to date. - Social history:: Smoking status: Patient/guardian denies using tobacco. - Ebola Screening: : Patient denies travel to an Ebola-affected area in the 21 days before illness onset. ROS: 22:41 Constitutional: Negative for fever, chills, and weight loss, Cardiovascular: Negative kb for chest pain, palpitations, and edema, Respiratory: Negative for shortness of breath, cough, wheezing, and pleuritic chest pain, Back: Negative for injury and pain, : Negative for injury, bleeding, discharge, and swelling, MS/Extremity: Negative for injury and deformity, Skin: Negative for injury, rash, and discoloration, Neuro: Negative for headache, weakness, numbness, tingling, and seizure. 22:41 Abdomen/GI: Positive for abdominal pain, nausea, Negative for vomiting, diarrhea, constipation, abdominal cramps, abdominal distension, anorexia. Exam: 22:41 Constitutional: This is a well developed, well nourished patient who is awake, alert, kb and in no acute distress. Head/Face: Normocephalic, atraumatic. ENT: Nares patent. No nasal discharge, no septal abnormalities noted. Tympanic membranes are normal and external auditory canals are clear. Oropharynx with no redness, swelling, or masses, exudates, or evidence of obstruction, uvula midline. Mucous membranes moist. Neck: Trachea midline, no thyromegaly or masses palpated, and no cervical lymphadenopathy. Supple, full range of motion without nuchal rigidity, or vertebral point tenderness. No Meningismus. Chest/axilla: Normal chest wall appearance and motion. Nontender with no deformity. No lesions are appreciated. Cardiovascular: Regular rate and rhythm with a normal S1 and S2. No gallops, murmurs, or rubs. Normal PMI, no JVD. No pulse deficits. Respiratory: Lungs have equal breath sounds bilaterally, clear to auscultation and percussion. No rales, rhonchi or wheezes noted. No increased work of breathing, no retractions or nasal flaring. Skin: Warm, dry with normal turgor. Normal color with no rashes, no lesions, and no evidence of cellulitis. MS/ Extremity: Pulses equal, no cyanosis. Neurovascular intact. Full, normal range of motion. Neuro: Awake and alert, GCS 15, oriented to person, place, time, and situation. Cranial nerves II-XII grossly intact. Motor strength 5/5 in all extremities. Sensory grossly intact. Cerebellar exam normal. Normal gait. 22:41 Abdomen/GI: Inspection: abdomen appears normal, Bowel sounds: normal, in all quadrants, Palpation: soft, in all quadrants, moderate abdominal tenderness, in the epigastric area and left upper quadrant. Vital Signs: 17:02 BP 143 / 89; Pulse 92; Resp 18; Temp 97.8; Pulse Ox 98% on R/A; Weight 104.33 kg (R); aj1 Height 5 ft. 8 in. (172.72 cm) (R); Pain 6/10; 19:00 BP 139 / 89; Pulse 77; Resp 16; Pulse Ox 99% ; bp 20:00 BP 121 / 82; Pulse 69; Resp 16; Pulse Ox 98% on R/A; lp1 21:00 BP 115 / 74; Pulse 66; Resp 16; Pulse Ox 97% on R/A; lp1 21:30 BP 128 / 81; Pulse 66; Resp 16; Pulse Ox 98% on R/A; Pain 6/10; lp1 22:53 BP 116 / 77; Pulse 69; Pulse Ox 98% ; Pain 0/10; fu 17:02 Body Mass Index 34.97 (104.33 kg, 172.72 cm) aj1 MDM: 18:03 Patient medically screened. kb 22:41 Data reviewed: vital signs, nurses notes. Data interpreted: Pulse oximetry: on room air kb is 98 %. Interpretation: normal. 23:06 Counseling: I had a detailed discussion with the patient and/or guardian regarding: the kb historical points, exam findings, and any diagnostic results supporting the discharge/admit diagnosis, lab results, radiology results, the need for outpatient follow up, a family practitioner, to return to the emergency department if symptoms worsen or persist or if there are any questions or concerns that arise at home. 01/27 18:20 Order name: Basic Metabolic Panel; Complete Time: 21:03 kb 01/27 18:20 Order name: CBC with Diff; Complete Time: 19:11 kb 01/27 18:20 Order name: Hepatic Function; Complete Time: 21:03 kb 01/27 18:20 Order name: Lipase; Complete Time: 21:03 kb 01/27 18:41 Order name: CT Abd/Pelvis - IV Contrast Only kb 01/27 18:20 Order name: IV Saline Lock; Complete Time: 18:46 kb 01/27 18:20 Order name: Labs collected and sent; Complete Time: 18:46 kb Administered Medications: 18:50 Drug: NS 0.9% 1000 ml Route: IV; Rate: 1000 ml; Site: left antecubital; bp 20:15 Follow up: IV Status: Completed infusion; IV Intake: 1000ml lp1 18:50 Drug: morphine 4 mg Route: IVP; Site: left antecubital; bp 19:20 Follow up: Response: Pain is decreased lp1 18:50 Drug: Zofran 4 mg Route: IVP; Site: left antecubital; bp 19:20 Follow up: Response: No adverse reaction lp1 22:00 Drug: morphine 4 mg {Note: RASS 1.} Route: IVP; Site: right antecubital; lp1 Disposition: 01/27/19 23:08 Discharged to Home. Impression: Upper abdominal pain, unspecified. - Condition is Stable. - Discharge Instructions: Abdominal Pain, Adult, [id number]. - Prescriptions for Bentyl 20 mg Oral Tablet - take 1 tablet by ORAL route every 6 hours As needed; 20 tablet. Zofran 4 mg Oral Tablet - take 1 tablet by ORAL route every 6 hours As needed; 20 tablet. - Medication Reconciliation Form, Thank You Letter, Antibiotic Education, Prescription Opioid Use, Work release form form. - Follow up: Emergency Department; When: As needed; Reason: Worsening of condition. Follow up: Private Physician; When: 2 - 3 days; Reason: Recheck today's complaints, Continuance of care, Re-evaluation by your physician. Signatures: Dispatcher [employer] EDMS Sarah Costa, LICENSED PRACTICAL NURSE CLINIC NURSE-C LICENSED PRACTICAL NURSE CLINIC NURSE-Sonia Tellez RN RN aj1 Adrienne Kelly RN RN lp1 Brad Carrion RN RN Severo Pena RN RN bp Corrections: (The following items were deleted from the chart) 23:29 23:08 01/27/2019 23:08 Discharged to Home. Impression: Upper abdominal pain, fu unspecified. Condition is Stable. Forms are Medication Reconciliation Form, Thank You Letter, Antibiotic Education, Prescription Opioid Use. Follow up: Emergency Department; When: As needed; Reason: Worsening of condition. Follow up: Private Physician; When: 2 - 3 days; Reason: Recheck today's complaints, Continuance of care, Re-evaluation by your physician. kb
[2019-01-28 03:15] VITALS: TEMP 97.8
[2019-01-28 03:21] VITALS: O2SAT 98
[2019-01-28 03:22] VITALS: BP 116/77
--- NOTE | 2019-01-28 10:42 | RAD REPORT ---
EXAM DESCRIPTION: CT - Abdomen Pelvis W Contrast - 01/28/2019 3:27 am CLINICAL HISTORY: Abdominal pain. TECHNIQUE: CT scan of the abdomen and pelvis was performed with intravenous contrast. 5 mm arterial axial images of the abdomen were obtained. 5 mm venous phase axial images of the abdomen and pelvis were obtained along with coronal and sagitta l reformatted images. DOSE OPTIMIZATION: This facility uses dose optimization techniques as appropriate to perform exams, including at least one of the following techniques: 1. Automated exposure control. 2. Adjustment of the mA and/or kV according to patient size (this includes techniques or standardized protocols for targeted exams where dose is matched to the indication/reason for exam, i.e. extremiti es or head). 3. Use of iterative reconstructive technique. INTRAVENOUS CONTRAST: Not documented. Please refer to medical record. COMPARISON: None. FINDINGS: Lung Bases: Normal. Liver: There is diffuse fatty liver infiltration. Spleen: Normal. Pancreas: Normal. Gallbladder: Surgically absent. Adrenal Glands: Normal. Kidneys: Normal. Retroperitoneal Structures: Normal. Bowel Survey: There is increased stool within the ascending and transverse colon. The distal ileum is unremarkable. The appendix is unremarkable. Prostate Gland: Normal in size. Urinary Bladder: Normal. Peritoneal Cavity: Normal. Mesenteric Structures: Normal. Abdominal Wall: No hernia. Bony Structures: No suspicious lesions. IMPRESSION: 1. Increased stool within the ascending and transverse colon. 2. Diffuse fatty liver infiltration. Electronically signed by: Gael Jurado MD 01/27/2019 9:43 PM REGISTERED SAFETY ENGINEER Due to temporary technical issues with the PACS/Fluency reporting system, reports are being signed by the in house radiologist as a courtesy to ensure prompt reporting. The interpreting radiologist is f ully responsible for the content of the report.
== END 2019-01-27 23:29 | disposition home or self-care (01) ==
LOC: ER 16:39
DX: R10.12 Left upper quadrant pain (principal); E11.9 Type 2 diabetes mellitus without complications; E78.5 Hyperlipidemia, unspecified; Z79.4 Long term (current) use of insulin
CPT/HCPCS: 85025; 80048; 36415; 80076; 83690; 74177; Q9967; J7030; J2405

== ENCOUNTER 2019-02-07 10:30 | Inpatient (IN) | payer OTHER ==
--- OUTSIDE RECORDS SUMMARY | 2019-02-07 10:32 | XMS REPORT ---
:1975 [facility] Address [address] [place] [address] [address] [place] [address] Care Team Providers Name Role Phone Unavailable Unavailable Unavailable Problems This patient has no known problems. Allergies, Adverse Reactions, Alerts This patient has no known allergies or adverse reactions. Medications This patient has no known medications.
[2019-02-07] MEDS ORDERED: KETOROLAC 30 MG/ML INJ ONE (10:54)
[2019-02-07] MEDS ORDERED: ONDANSETRON 4 MG/2 ML VIAL ONE (10:54)
[2019-02-07] MEDS ORDERED: MORPHINE 4 MG/ML SYR ONE ×4 (10:54→14:33)
[2019-02-07] MEDS ORDERED: NA CHLORIDE 0.9% 1,000 ML ONE ×2 (10:54→14:33)
[2019-02-07 11:47] LABS: Absolute Lymphocytes (CBC) 2.2 K/uL (0.7-4.9); Basophils % 1.5 % (0-1.3); Hematocrit 41.2 % (39.6-49.0); Lymphocytes % 34.1 % (15.3-44.8)
[2019-02-07 11:51] LABS: MPV 11.1 fL (7.6-11.3)
[2019-02-07 12:14] LABS: HDL Cholesterol 34 mg/dL (40-60)
[2019-02-07 12:19] LABS: LDL Cholesterol, Calculated ND (<130)
[2019-02-07 12:31] LABS: LDL, Direct 112 mg/dL (100-129)
[2019-02-07 13:25] LABS: Blood Morphology Comment NOT SEEN (NOT SEEN); Platelet Estimate ADEQ; Urine White Blood Cell Casts OK
[2019-02-07 13:38] LABS: Urine Blood NEGATIVE (NEG); Urine Glucose 2+ (NEG); Urine Protein TRACE (NEG); Urine Specific Gravity 1.025 (1.005-1.030); Urine pH 5.5 (5.0-7.0)
[2019-02-07 13:47] LABS: Sodium Level 135 mmol/L (136-145)
[2019-02-07 13:48] LABS: ALT/SGPT ND U/L (12-78); AST/SGOT ND U/L (15-37); Alkaline Phosphatase 66 U/L (45-117); BUN Blood Urea Nitrogen 8 mg/dL (7-18); Bicarbonate 18 mmol/L (21-32); Glucose Level 328 mg/dL (74-106); Potassium ND mmol/L (3.5-5.1)
[2019-02-07 13:49] LABS: Albumin 2.9 g/dL (3.4-5.0); Lipase 1619 U/L (73-393); Protein, Total 7.1 g/dL (6.4-8.2)
--- NOTE | 2019-02-07 14:36 | ER ---
Nurse's Notes [facility] Name: Javier Rutherford Age: 44 yrs Sex: Male : 1975 Arrival Date: 02/07/2019 Time: 10:31 Bed 8 Private MD: Diagnosis: Acute pancreatitis Presentation: 02/07 10:47 Presenting complaint: Patient states: I have history of pancreatitis. RUQ pain started ca1 this morning at 0800, radiates to the back. Pain is sharp and constant, pain scale 10/10. Observed behaviors: guarding and moaning. Reports nausea, denies vomiting. Transition of care: patient was not received from another setting of care. Onset of symptoms was February 07, 2019 at 08:00. Risk Assessment: Do you want to hurt yourself or someone else? Patient reports no desire to harm self or others. Initial Sepsis Screen: Does the patient meet any 2 criteria? No. Patient's initial sepsis screen is negative. Does the patient have a suspected source of infection? No. Patient's initial sepsis screen is negative. Care prior to arrival: None. 10:47 Method Of Arrival: Wheelchair ca1 10:47 Acuity: HANY 3 ca1 Historical: - Allergies: 11:04 No Known Allergies; ca1 - PMHx: 11:04 Diabetes - NIDDM; fatty liver; Hyperlipidemia; Pancreatitis; ca1 - PSHx: 11:04 Cholecystectomy; Hernia repair; ca1 - Immunization history:: Adult Immunizations up to date, Flu vaccine is up to date. - Social history:: Smoking status: Patient/guardian denies using tobacco. - Ebola Screening: : Patient negative for fever greater than or equal to 101.5 degrees Fahrenheit, and additional compatible Ebola Virus Disease symptoms Patient denies exposure to infectious person Patient denies travel to an Ebola-affected area in the 21 days before illness onset No symptoms or risks identified at this time. Screenin:47 Abuse screen: Denies threats or abuse. Denies injuries from another. Nutritional ca1 screening: No deficits noted. Tuberculosis screening: No symptoms or risk factors identified. Fall Risk IV access (20 points). Assessment: 10:50 Reassessment: Dr. Mckeon at bedside. ca1 11:01 General: Appears in no apparent distress. uncomfortable, Behavior is calm, cooperative, ca1 appropriate for age. Pain: Complains of pain in left upper quadrant Pain radiates to right mid back and right low back Pain currently is 10 out of 10 on a pain scale. Quality of pain is described as sharp, Pain began 3 hours ago. Is continuous. Neuro: Level of Consciousness is awake, alert, obeys commands, Oriented to person, place, time, situation, Appropriate for age. Cardiovascular: Heart tones S1 S2 present Capillary refill < 3 seconds Patient's skin is warm and dry. Respiratory: Airway is patent Respiratory effort is even, unlabored, Respiratory pattern is regular, symmetrical, Breath sounds are clear bilaterally. GI: Abdomen is flat, non-distended, Bowel sounds present X 4 quads. Abd is soft X 4 quads Abdomen is tender to palpation in right upper quadrant and left upper quadrant Reports nausea. : No deficits noted. No signs and/or symptoms were reported regarding the genitourinary system. EENT: No deficits noted. No signs and/or symptoms were reported regarding the EENT system. Derm: Skin is intact, is healthy with good turgor, Skin is pink, warm \\T\\ dry. Musculoskeletal: Circulation, motion, and sensation intact. Capillary refill < 3 seconds, Range of motion: intact in all extremities. 11:27 Reassessment: Patient appears in no apparent distress at this time. Patient is alert, ca1 oriented x 3, equal unlabored respirations, skin warm/dry/pink. Pt states, "It felt better but it's coming back". Notified provider. Order given. 12:15 Reassessment: Patient appears in no apparent distress at this time. Patient is alert, ca1 oriented x 3, equal unlabored respirations, skin warm/dry/pink. 12:46 Reassessment: Pt c/o pain coming back. Notified provider, order given. ca1 12:48 Reassessment: Lab result pending. Paged inside lab 2x, called 2-3x for a recollect on ca1 recollect. Reassessment: Patient appears in no apparent distress at this time. Patient and/or family updated on plan of care and expected duration. Pain level reassessed. 13:11 Reassessment: x ray electronics wiring technician at bedside. ca1 13:30 Reassessment: Patient appears in no apparent distress at this time. Patient and/or ca1 family updated on plan of care and expected duration. Pain level reassessed. 14:42 Reassessment: Patient appears in no apparent distress at this time. Patient and/or ca1 family updated on plan of care and expected duration. Pain level reassessed. Patient is alert, oriented x 3, equal unlabored respirations, skin warm/dry/pink. Pt c/o pain coming back. Notified provider. Morphine ordered and fluids. Orders given. 15:20 Reassessment: Patient appears in no apparent distress at this time. Patient is alert, ca1 oriented x 3, equal unlabored respirations, skin warm/dry/pink. Pending room assignment. Vital Signs: 10:47 BP 150 / 95; Pulse 80; Resp 20 S; Temp 97.8(O); Pulse Ox 99% on R/A; Weight 99.79 kg ca1 (R); Height 5 ft. 8 in. (172.72 cm) (R); Pain 10/10; 11:27 BP 150 / 88; Pulse 77; Resp 16 S; Pulse Ox 99% on R/A; Pain 7/10; ca1 12:15 BP 138 / 91; Pulse 71; Resp 17 S; Pulse Ox 98% on R/A; ca1 12:46 BP 145 / 88; Pulse 75; Resp 17 S; Pulse Ox 100% on R/A; ca1 13:24 BP 129 / 84; Pulse 72; Resp 16 S; Pulse Ox 98% on R/A; ca1 14:04 BP 134 / 86; Pulse 67; Resp 18; Temp 97.9(O); Pulse Ox 100% on R/A; mh5 15:20 BP 133 / 84; Pulse 73; Resp 17 S; Pulse Ox 98% on R/A; ca1 10:47 Body Mass Index 33.45 (99.79 kg, 172.72 cm) ca1 ED Course: 10:31 Patient arrived in ED. as 10:44 James Mckeon MD is Attending Physician. ps1 10:47 Jennifer Kingston RN is Primary Nurse. ca1 10:47 Arm band placed on right wrist. ca1 10:47 Patient has correct armband on for positive identification. Placed in gown. Bed in low ca1 position. Call light in reach. Side rails up X 1. Pulse ox on. NIBP on. Warm blanket given. 10:49 Triage completed. ca1 10:50 No provider procedures requiring assistance completed. Initial lab(s) drawn, by ED ca1 staff, sent to lab. Inserted saline lock: 20 gauge in right forearm, using aseptic technique. ,using aseptic technique. by ARACELI Elkins Blood collected. 11:25 Lab(s) recollected, by me, sent to lab. Inserted saline lock: 20 gauge in left 5 antecubital area, using aseptic technique. 11:26 Lipid Profile Sent. 5 11:26 CMP Sent. 5 13:11 Lab(s) recollected, by dental laboratory worker, sent to lab. ca1 13:50 Notified ED physician of a critical lab result(s). Ca 6.3. hb 14:34 Joseph Still MD is Hospitalizing Provider. ps1 14:46 Patient admitted, IV remains in place. ca1 Administered Medications: 10:52 Drug: NS 0.9% 1000 ml Route: IV; Rate: 1 bolus; Site: right forearm; ca1 12:14 Follow up: Response: No adverse reaction; IV Status: Completed infusion; IV Intake: ca1 1000ml 10:54 Drug: Zofran 4 mg Route: IVP; Site: right forearm; ca1 12:14 Follow up: Response: No adverse reaction; Nausea is decreased ca1 10:56 Drug: TORadol - Ketorolac 15 mg Route: IVP; Site: right forearm; ca1 11:35 Follow up: Response: No adverse reaction; Pain is unchanged, physician notified ca1 11:00 Drug: morphine 4 mg {Note: RASS - 0.} Route: IVP; Site: right forearm; ca1 11:35 Follow up: Response: No adverse reaction; Pain is unchanged, physician notified; RASS: ca1 Alert and Calm (0) 11:37 Drug: morphine 4 mg {Note: RASS - 0.} Route: IVP; Site: right forearm; ca1 12:45 Follow up: Response: No adverse reaction; Pain is unchanged, physician notified ca1 12:47 Drug: morphine 4 mg {Note: RASS - 0.} Route: IVP; Site: right forearm; ca1 13:15 Follow up: Response: No adverse reaction; Pain is decreased; RASS: Alert and Calm (0) ca1 14:35 Drug: morphine 4 mg Route: IVP; Site: right forearm; ca1 15:20 Follow up: Response: No adverse reaction; Pain is decreased; RASS: Alert and Calm (0) ca1 14:36 Drug: NS 0.9% 1000 ml Route: IV; Rate: 125 ml/hr; Site: right forearm; ca1 14:51 Follow up: IV Status: Infusion continued upon admission ca1 15:19 Drug: Insulin NPH-Regular Human Rec 70/30 10 units {Co-Signature: bp (Severo Galvan ca1 RN).} Route: Sub-Q; Site: right lower abdomen; 16:05 Follow up: Response: No adverse reaction ca1 Intake: 12:14 IV: 1000ml; Total: 1000ml. ca1 Outcome: 14:34 Decision to Hospitalize by Provider. ps1 16:02 Admitted to Tele accompanied by tech, via wheelchair, room 403, with chart, Report ca1 called to ARACELI Pruett 16:02 Condition: stable 16:02 Instructed on the need for admit. 16:15 Patient left the ED. ca1 Signatures: Porsche Tavares Heather, RN RN Elizabeth Tavares [facility] James Mckeon MD MD ps1 Jennifer Kingston RN RN ca1 Severo Galvan RN bp Corrections: (The following items were deleted from the chart) 11:04 10:47 BP 150 / 95; Pulse 80bpm; Resp 20bpm; Spontaneous; Pulse Ox 99% RA; Pain 10/10; ca1 ca1 11:27 11:26 CBC+H.LAB.BRZ drawn and sent. [facility] EDMS 11:27 11:26 LIPASE+C.LAB.BRZ drawn and sent. [facility] EDMS 11:37 11:27 Reassessment: Patient appears in no apparent distress at this time. Patient is ca1 alert, oriented x 3, equal unlabored respirations, skin warm/dry/pink. Patient states feeling better. ca1
--- NOTE | 2019-02-07 14:36 | EDPHYS ---
Physician Documentation [facility] – [place], [place] Name: Javier Rutherford Age: 44 yrs Sex: Male : 1975 Arrival Date: 02/07/2019 Time: 10:31 Bed 8 Private MD: ED Physician James Mckeon HPI: 02/07 10:54 This 44 yrs old Male presents to ER via Wheelchair with complaints of ps1 Pancreatitis. 10:54 hx of recurrent pancreatitis. Not associated with drinking. Was seen and evaluated a ps1 couple of weeks ago for similar complaints and told that he has constipation. Patient states that he has used the bathroom regularly and that this pain was cw his previous pancreatitis episodes. Pain rated as severe. No fever or jaundice. . Historical: - Allergies: 11:04 No Known Allergies; ca1 - PMHx: 11:04 Diabetes - NIDDM; fatty liver; Hyperlipidemia; Pancreatitis; ca1 - PSHx: 11:04 Cholecystectomy; Hernia repair; ca1 - Immunization history:: Adult Immunizations up to date, Flu vaccine is up to date. - Social history:: Smoking status: Patient/guardian denies using tobacco. - Ebola Screening: : Patient negative for fever greater than or equal to 101.5 degrees Fahrenheit, and additional compatible Ebola Virus Disease symptoms Patient denies exposure to infectious person Patient denies travel to an Ebola-affected area in the 21 days before illness onset No symptoms or risks identified at this time. ROS: 10:54 Constitutional: Negative for fever, chills, and weight loss, Eyes: Negative for injury, ps1 pain, redness, and discharge, Cardiovascular: Negative for chest pain, palpitations, and edema, Respiratory: Negative for shortness of breath, cough, wheezing, and pleuritic chest pain, Skin: Negative for injury, rash, and discoloration, Neuro: Negative for headache, weakness, numbness, tingling, and seizure. 10:54 Abdomen/GI: Positive for abdominal pain, nausea. Exam: 10:54 Constitutional: This is a well developed, well nourished patient who is awake, alert, ps1 and in no acute distress. Head/Face: Normocephalic, atraumatic. Eyes: Pupils equal round and reactive to light, extra-ocular motions intact. Lids and lashes normal. Conjunctiva and sclera are non-icteric and not injected. Chest/axilla: Normal chest wall appearance and motion. Nontender with no deformity. No lesions are appreciated. Cardiovascular: Regular rate and rhythm. No gallops, murmurs, or rubs. Normal PMI, no JVD. No pulse deficits. Respiratory: Lungs have equal breath sounds bilaterally, clear to auscultation and percussion. No rales, rhonchi or wheezes noted. No increased work of breathing, no retractions or nasal flaring. Skin: Warm, dry with normal turgor. Normal color with no rashes, no lesions, and no evidence of cellulitis. MS/ Extremity: Pulses equal, no cyanosis. Neurovascular intact. Full, normal range of motion. Neuro: Awake and alert, GCS 15, oriented to person, place, time, and situation. Cranial nerves II-XII grossly intact. Sensory grossly intact. 10:54 Abdomen/GI: Inspection: abdomen appears normal, Bowel sounds: normal, Palpation: soft, moderate abdominal tenderness, in the epigastric area and left upper quadrant. Vital Signs: 10:47 BP 150 / 95; Pulse 80; Resp 20 S; Temp 97.8(O); Pulse Ox 99% on R/A; Weight 99.79 kg ca1 (R); Height 5 ft. 8 in. (172.72 cm) (R); Pain 10/10; 11:27 BP 150 / 88; Pulse 77; Resp 16 S; Pulse Ox 99% on R/A; Pain 7/10; ca1 12:15 BP 138 / 91; Pulse 71; Resp 17 S; Pulse Ox 98% on R/A; ca1 12:46 BP 145 / 88; Pulse 75; Resp 17 S; Pulse Ox 100% on R/A; ca1 13:24 BP 129 / 84; Pulse 72; Resp 16 S; Pulse Ox 98% on R/A; ca1 14:04 BP 134 / 86; Pulse 67; Resp 18; Temp 97.9(O); Pulse Ox 100% on R/A; mh5 15:20 BP 133 / 84; Pulse 73; Resp 17 S; Pulse Ox 98% on R/A; ca1 10:47 Body Mass Index 33.45 (99.79 kg, 172.72 cm) ca1 MDM: 10:45 Patient medically screened. [facility] 02/07 10:45 Order name: CBC with Diff; Complete Time: 13:27 ps1 02/07 10:45 Order name: Lipase; Complete Time: 14:30 ps1 02/07 10:45 Order name: CMP; Complete Time: 14:30 ps1 02/07 10:51 Order name: Lipid Profile; Complete Time: 12:42 ps1 02/07 13:27 Interpretation: Abnormal: TRIG 4824. ps1 02/07 12:21 Order name: LDL, Direct; Complete Time: 12:42 EDMS 02/07 12:51 Order name: Urine Dipstick--Ancillary (enter results); Complete Time: 13:48 eb 02/07 13:26 Order name: CBC Smear Scan; Complete Time: 13:27 EDCO 02/07 14:46 Order name: CBC with Automated Diff EDMS 02/07 14:46 Order name: CBC with Automated Diff EDMS 02/07 14:46 Order name: Comprehensive Metabolic Panel EDMS 02/07 14:46 Order name: Comprehensive Metabolic Panel EDMS 02/07 14:46 Order name: Lipase EDMS 02/07 14:46 Order name: Lipase EDMS 02/07 14:46 Order name: Lipase EDMS 02/07 14:46 Order name: CONS Pharmacy Consult EDMS 02/07 14:46 Order name: Lipase EDMS 02/07 14:51 Order name: CT ANGIO ABD/PELVIS W CONTRAST EDMS 02/07 14:53 Order name: Triglycerides Level EDMS 02/07 14:53 Order name: Triglycerides Level EDMS 02/07 14:53 Order name: Triglycerides Level EDMS 02/07 14:54 Order name: Abdomen 1 View (KUB) EDCO 02/07 10:45 Order name: IV Saline Lock; Complete Time: 11:00 ps1 02/07 10:45 Order name: Labs collected and sent; Complete Time: 11:00 ps1 02/07 10:45 Order name: Urine Dipstick-Ancillary (obtain specimen); Complete Time: 12:49 ps1 02/07 11:13 Order name: Labs - recollect needed; Complete Time: 11:26 hb 02/07 11:51 Order name: Labs - recollect needed: recollect on the recollect green top tube please; eb Complete Time: 13:14 02/07 14:46 Order name: NPO EDMS Administered Medications: 10:52 Drug: NS 0.9% 1000 ml Route: IV; Rate: 1 bolus; Site: right forearm; ca1 12:14 Follow up: Response: No adverse reaction; IV Status: Completed infusion; IV Intake: ca1 1000ml 10:54 Drug: Zofran 4 mg Route: IVP; Site: right forearm; ca1 12:14 Follow up: Response: No adverse reaction; Nausea is decreased ca1 10:56 Drug: TORadol - Ketorolac 15 mg Route: IVP; Site: right forearm; ca1 11:35 Follow up: Response: No adverse reaction; Pain is unchanged, physician notified ca1 11:00 Drug: morphine 4 mg {Note: RASS - 0.} Route: IVP; Site: right forearm; ca1 11:35 Follow up: Response: No adverse reaction; Pain is unchanged, physician notified; RASS: ca1 Alert and Calm (0) 11:37 Drug: morphine 4 mg {Note: RASS - 0.} Route: IVP; Site: right forearm; ca1 12:45 Follow up: Response: No adverse reaction; Pain is unchanged, physician notified ca1 12:47 Drug: morphine 4 mg {Note: RASS - 0.} Route: IVP; Site: right forearm; ca1 13:15 Follow up: Response: No adverse reaction; Pain is decreased; RASS: Alert and Calm (0) ca1 14:35 Drug: morphine 4 mg Route: IVP; Site: right forearm; ca1 15:20 Follow up: Response: No adverse reaction; Pain is decreased; RASS: Alert and Calm (0) ca1 14:36 Drug: NS 0.9% 1000 ml Route: IV; Rate: 125 ml/hr; Site: right forearm; ca1 14:51 Follow up: IV Status: Infusion continued upon admission ca1 15:19 Drug: Insulin NPH-Regular Human Rec 70/30 10 units {Co-Signature: bp (Severo Galvan ca1 RN).} Route: Sub-Q; Site: right lower abdomen; 16:05 Follow up: Response: No adverse reaction ca1 Disposition: 02/07/19 14:34 Hospitalization ordered by Joseph Still for Inpatient Admission. Preliminary diagnosis is Acute pancreatitis. - Bed requested for Telemetry/MedSurg (Inpatient). - Status is Inpatient Admission. ca1 - Condition is Stable. - Problem is an acute exacerbation. - Symptoms have improved. UTI on Admission? No Signatures: Dispatcher [employer] EDAlice Cheatham, RN RN James Mckeon MD MD ps1 Razia Darby Cheryl, RN RN ca1 Severo Galvan RN bp Corrections: (The following items were deleted from the chart) 11:27 10:45 CBC+H.LAB.BRZ ordered. EDMS EDMS 11:27 10:45 LIPASE+C.LAB.BRZ ordered. EDMS EDMS 15:37 14:34 Hospitalization Ordered by Joseph Still MD for Inpatient Admission. ca1 Preliminary diagnosis is Acute pancreatitis. Bed requested for Telemetry/MedSurg (Inpatient). Status is Inpatient Admission. Condition is Stable. Problem is an acute exacerbation. Symptoms have improved. UTI on Admission? No. ps1 16:15 15:37 02/07/2019 14:34 Hospitalization Ordered by Joseph Still MD for Inpatient ca1 Admission. Preliminary diagnosis is Acute pancreatitis. Bed requested for Telemetry/MedSurg (Inpatient). Status is Inpatient Admission. Condition is Stable. Problem is an acute exacerbation. Symptoms have improved. UTI on Admission? No. ca1
[2019-02-07] MEDS ORDERED: MORPHINE 4 MG/ML SYR IV PRN (14:41)
[2019-02-07] MEDS ORDERED: HYDROMORPHONE HCL 2 MG/ML inj IV PRN (14:47)
[2019-02-07] MEDS ORDERED: INSULIN 70/30 100 UNITS/ML SQ ONE (15:00)
[2019-02-07 16:30] VITALS: BMI 33.4
[2019-02-07] MEDS ORDERED: GLUCAGON 1 MG/VIAL IM PRN (16:41)
--- NOTE | 2019-02-07 16:44 | P.HP ---
Certification for Inpatient With expected LOS: >2 Midnights Patient will require the following post-hospital care: None Practitioner: I am a practitioner with admitting privileges, knowledge of patient current condition, hospital course, and medical plan of care. Services: Services provided to patient in accordance with Admission requirements found in Title 42 Section 412.3 of the Code of Federal Regulations Patient History Date of Service: 02/07/19 Reason for admission: Pancreatitis History of Present Illness: Patient is 44 years of age with a history of recurrent pancreatitis admitted with acute onset of abdominal pain he was admitted to this hospital in March of this year in significant amount of pain this pain came on rather suddenly denies alcohol abuse status post cholecystectomy in denies any nausea vomiting diarrhea no fever or chills Allergies No Known Allergies Allergy (Verified 01/31/18 05:25) Home Medications: Docosahexanoic AC/Epa [Fish Oil 1,000 MG*] 1 cap PO DAILY 03/29/18 Fenofibrate,Micronized [Fenofibrate] 200 mg PO BEDTIME 03/29/18 Insulin Degludec [Tresiba Flextouch U-100] 20 units SQ DAILY 03/29/18 Metformin HCl [Glucophage] 1,000 mg PO BIDWM 03/29/18 Pantoprazole Sodium [Protonix] 40 mg PO DAILY 03/29/18 - Past Medical/Surgical History Has patient received pneumonia vaccine in the past: No Diabetic: Yes -: pancreatitis -: hyperlipidemia -: DM2 -: pancreatic mass -: fatty liver -: Cholecystectomy -: Hernia sx -: vasectomy - Family History Sister -: Diabetes, Cancer Mother -: Diabetes Brother -: GI disease, Diabetes Notes: Pancreatitis - Social History Alcohol use: Yes CD- Drugs: No Caffeine use: Yes Review of Systems 10-point ROS is otherwise unremarkable Gastrointestinal: Nausea, Abdominal Pain Physical Examination - Vital Signs Temperature: 97.8 F Blood Pressure: 150/95 Pulse: 80 Respirations: 22 Pulse Ox (%): 98 - Physical Exam General: Alert, Oriented x3, Severe distress HEENT: Atraumatic Neck: Supple Respiratory: Clear to auscultation bilaterally Cardiovascular: No edema, Regular rate/rhythm Gastrointestinal: Normal bowel sounds, Tenderness (Epigastric tenderness with rebound) Musculoskeletal: No clubbing, No swelling, No contractures Neurological: Normal speech, Normal strength at 5/5 x4 extr - Studies Laboratory Data (last 24 hrs) 02/07/19 13:00: Sodium 135 L, Potassium ND, BUN 8, Creatinine 0.86, Glucose 328 H, Total Bilirubin 1.0, AST ND, ALT ND, Alkaline Phosphatase 66, Lipase 1619 H 02/07/19 11:20: Triglycerides 4824 H, Cholesterol 370 H, LDL Cholesterol Direct 112, HDL Cholesterol 34 L, Cholesterol/HDL Ratio 10.88 02/07/19 11:20: WBC 6.5 D, Hgb 14.7, Hct 41.2 D, Plt Count 202 Assessment and Plan - Problems (Diagnosis) (1) hypertriglyceridemia induce pancreatitis Onset Date: 07/08/17 Current Visit: No Status: Acute Plan: Patient is 44 years of age admitted with acute pancreatitis he has he has recurrent episodes of pancreatitis last admission in this hospital was in March 2018 he has had another episode since then on either state patient's triglycerides at extremely high this is almost certainly triglyceride induced pancreatitis an IV insulin monitor triglyceride levels every 12 hr patient's calcium is Igor also check lactic acid in this clinical worsening consider transfer to a tertiary care unit to initiate a pheresis with therapeutic plasma exchange patient is a diabetic and has fatty liver patient has hypocalcemia even corrected for his albumin Plan to discharge in: Greater than 2 days - Advance Directives Does patient have a Living Will: No Does patient have a Durable POA for Healthcare: No
[2019-02-07] MEDS: NA CHLORIDE 0.9% 1,000 ML IV SCH (16:53)
--- NOTE | 2019-02-07 17:23 | RAD REPORT ---
EXAM DESCRIPTION: RAD - Abdomen 1 View (KUB) - 02/07/2019 5:18 pm CLINICAL HISTORY: PANCREATITIS Pain COMPARISON: No comparisons FINDINGS: The bowel gas pattern is non-obstructive. No evidence of free air or pneumatosis. No suspi cious calcifications. No significant bony findings. IMPRESSION: Negative examination.
[2019-02-07] MEDS: INSULIN -REGULAR HUMAN 50 UNIT/0.5 ML ML SQ SCH ×2 (17:25→21:00)
[2019-02-07] MEDS: ONDANSETRON 4 MG/2 ML VIAL IV PRN (17:40)
[2019-02-07] MEDS: INSULIN -REGULAR HUMAN 100 UNIT in NA CHLORIDE 0.9% 100 ML IV SCH (18:09)
[2019-02-07 19:39] LABS: ALT/SGPT 54 U/L (12-78); Albumin 3.2 g/dL (3.4-5.0); Alkaline Phosphatase 60 U/L (45-117); Bilirubin Direct < 0.1 mg/dL (0-0.2); Bilirubin Total 0.4 mg/dL (0.2-1.0); Protein, Total 7.2 g/dL (6.4-8.2)
[2019-02-07] MEDS: HYDROMORPHONE HCL 2 MG/ML inj IV PRN (20:52)
[2019-02-07 21:39] LABS: AST/SGOT 44 U/L (15-37)
[2019-02-07 22:49] LABS: LDL, Direct 104 mg/dL (100-129)
[2019-02-08] MEDS: NA CHLORIDE 0.9% 1,000 ML IV SCH ×3 (00:30→20:19)
[2019-02-08] MEDS: HYDROMORPHONE HCL 2 MG/ML inj IV PRN ×3 (01:33→20:19)
[2019-02-08] MEDS: ONDANSETRON 4 MG/2 ML VIAL IV PRN ×3 (03:30→20:21)
[2019-02-08 05:55] LABS: Basophils % 0.7 % (0-1.3); Hematocrit 36.3 % (39.6-49.0); Lymphocytes % 10.3 % (15.3-44.8); MPV 10.3 fL (7.6-11.3); RBC Red Blood Cell Count 4.35 M/uL (4.33-5.43)
[2019-02-08 06:18] LABS: Blood Morphology Comment NOT SEEN (NOT SEEN); Platelet Estimate ADEQ; Urine White Blood Cell Casts OK
[2019-02-08 06:36] LABS: Albumin 3.3 g/dL (3.4-5.0); Bilirubin Total 0.5 mg/dL (0.2-1.0); Protein, Total 7.3 g/dL (6.4-8.2)
[2019-02-08 06:41] LABS: LDL, Direct 67 mg/dL (100-129); Potassium 4.1 mmol/L (3.5-5.1)
[2019-02-08] MEDS: INSULIN -REGULAR HUMAN 50 UNIT/0.5 ML ML SQ SCH ×4 (07:29→20:21)
[2019-02-08] MEDS: GEMFIBROZIL 600 MG TAB PO SCH ×3 (08:14→20:19)
[2019-02-08] MEDS ORDERED: PROMETHAZINE 25 MG/ML VIAL IV ONE (09:41)
--- NOTE | 2019-02-08 11:06 | RAD REPORT ---
EXAM DESCRIPTION: CT - Abdomen Pelvis W/Wo Contrast - 02/08/2019 9:29 am CLINICAL HISTORY: PANCREATITIS, abdominal pain COMPARISON: CT imaging January 27, 2019 and July 2017 TECHNIQUE: Biphasic, helical CT imaging of the abdomen and pelvis was performed following 100 ml non -ionic IV contrast. An axial 3 millimeter image acquisition thickness was obtained. Precontrast imagi ng was performed. Axial 3 mm 3 minutes delayed acquisition performed. No oral contrast administered. All CT scans are performed using dose optimization technique as appropriate and may include automated exposure control or mA/KV adjustment according to patient size. FINDINGS: No suspicious findings in the lung bases. Fatty infiltration of the liver is present and has been previously detailed. No focal liver lesion. N o portal vein abnormality identified. No splenomegaly or focal splenic finding. Cholecystectomy clips are present. No intrahepatic biliary tree dilatation. Extrahepatic biliary tree is prominent but sta ble from prior imaging. Again noted is the tapering of the common bile duct in the head of the pancre as. No duct stone identified. Duct stones can be occult on CT imaging. Moderate stranding is seen in the fatty tissues surrounding the head of the pancreas and uncinate pro cess. Pancreatic parenchyma is homogeneous. Patient gives a history of pancreatic mass ; however, no focal solid or cystic mass identifiable. No pancreatic duct dilatation seen. Stranding along the body and tail of the pancreas is minimal. No pseudocyst. Symmetric renal function is seen with no hydronephrosis or suspicious renal mass. No pyelonephritis o r acute parenchymal process. No bladder abnormalities. No adrenal abnormalities. No gastric dilatation. There is minimal edema involving the antrum and duodenal C-loop. Jejunum and i leum show no acute findings. No acute colon process seen. Diverticulosis is minimal. No free air, pneumatosis or free fluid. No other area of inflammatory stranding. No hernia, mass or bulky lymphadenopathy. No suspicious bony findings. IMPRESSION: Moderate acute pancreatitis findings surrounding the head and uncinate process of the pa ncreas. Stranding along the body and tail are minimal. No pseudocyst, mass or other pancreatic abnormality identifiable. Patient is status post cholecystectomy. Biliary tree is similar in appearance to prior imaging. Duct stones can be occult on CT imaging. Minimal secondary involvement of the gastric antrum and duodenal C-loop. Diffuse fatty infiltration of the liver.
[2019-02-08] MEDS: D50W 25 GM/50 ML SYRINGE/VIAL IV PRN ×2 (13:13→16:54)
[2019-02-08] MEDS: INSULIN -REGULAR HUMAN 100 UNIT in NA CHLORIDE 0.9% 100 ML IV SCH (15:21)
--- NOTE | 2019-02-08 15:56 | P.PN ---
Subjective Date of Service: 02/08/19 Chief Complaint: Pancreatitis Patient seen and examined at bedside with RN. Chart reviewed. Case discussed with RN at bedside. This morning patient continues to have nausea was given Phenergan x1 now controlled. No other complaints to offer. Review of Systems 10-point ROS is otherwise unremarkable Physical Examination - Vital Signs Temperature: 98.9 F Blood Pressure: 103/62 Pulse: 83 Respirations: 10 Pulse Ox (%): 97 - Physical Exam General: Alert, In no apparent distress HEENT: Atraumatic, PERRLA, EOMI Neck: Supple, JVD not distended Respiratory: Clear to auscultation bilaterally, Normal air movement Cardiovascular: Regular rate/rhythm, Normal S1 S2 Gastrointestinal: Normal bowel sounds, Tenderness Musculoskeletal: No tenderness Integumentary: No rashes Neurological: Normal speech, Normal tone, Normal affect Lymphatics: No axilla or inguinal lymphadenopathy - Studies Medications List Reviewed: Yes Assessment And Plan - Current Problems (Diagnosis) (1) Acute pancreatitis Onset Date: 03/21/14 Current Visit: No Status: Acute Plan: Acute pancreatitis most likely secondary to hypertriglyceridemia -currently IV fluids, NPO, IV pain medication -continue with insulin drip until lipid level less than 1000 -will monitor patient closely Qualifiers: Pancreatitis type: other Acute pancreatitis complication: no infection or necrosis Qualified Code(s): K85.80 - Other acute pancreatitis without necrosis or infection (2) Hypertriglyceridemia Onset Date: 11/14/16 Current Visit: No Status: Chronic (3) Diabetes mellitus Onset Date: 11/14/16 Current Visit: No Status: Chronic Qualifiers: Diabetes mellitus type: type 2 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 Will continue monitor patient in the ICU at this time with insulin drip. Once patient's lipid panel has been less than 1000 and patient abdominal pain-free we will advance the diet. Will consider TPN in next 24 hr. Discharge Plan: Home Plan to discharge in: Greater than 2 days - Code Status/Comfort Care Code Status Assessed: Yes Critical Care: No
[2019-02-08 16:57] LABS: LDL, Direct 53 mg/dL (100-129)
[2019-02-09] MEDS: HYDROMORPHONE HCL 2 MG/ML inj IV PRN ×3 (00:25→08:03)
[2019-02-09 01:10] LABS: HDL Cholesterol 41 mg/dL (40-60); LDL Cholesterol, Calculated ND (<130)
[2019-02-09 01:21] LABS: LDL, Direct 64 mg/dL (100-129)
[2019-02-09] MEDS ORDERED: NA CHLORIDE 0.9% 500 ML IV ONE ×2 (01:58→06:00)
[2019-02-09] MEDS: NA CHLORIDE 0.9% 1,000 ML IV SCH ×2 (05:59→18:40)
[2019-02-09] MEDS: DOCOSAHEXANOIC AC/EPA 1000 MG PO SCH ×3 (05:59→20:36)
[2019-02-09 06:33] LABS: LDL, Direct 74 mg/dL (100-129)
[2019-02-09] MEDS: INSULIN -REGULAR HUMAN 50 UNIT/0.5 ML ML SQ SCH ×4 (07:30→20:45)
[2019-02-09] MEDS: ONDANSETRON 4 MG/2 ML VIAL IV PRN ×2 (08:04→20:41)
[2019-02-09 08:43] LABS: Lipase 364 U/L (73-393)
[2019-02-09] MEDS: GEMFIBROZIL 600 MG TAB PO SCH ×2 (08:49→20:36)
[2019-02-09 08:55] LABS: LDL, Direct 79 mg/dL (100-129)
[2019-02-09] MEDS: TRAMADOL HCL 50 MG TAB PO PRN ×2 (12:11→20:37)
[2019-02-09] MEDS: PANTOPRAZOLE 40MG TABLET PO SCH ×2 (13:44→16:30)
[2019-02-09] MEDS ORDERED: HYDROMORPHONE HCL 1 MG/ML INJ IV ONE (13:55)
--- NOTE | 2019-02-09 14:21 | P.PN ---
Subjective Date of Service: 02/09/19 Chief Complaint: Pancreatitis Patient seen and examined at bedside with RN. Chart reviewed. Case discussed with RN at bedside. Patient doing well overall upon examination. Does seem to be upset regarding switching the IV pain medication over to oral. Educated extensively on the need to continue with oral medication at this time. Review of Systems 10-point ROS is otherwise unremarkable Physical Examination - Vital Signs Temperature: 99.5 F Blood Pressure: 120/82 Pulse: 87 Respirations: 16 Pulse Ox (%): 99 - Physical Exam General: Alert, In no apparent distress HEENT: Atraumatic, PERRLA, EOMI Neck: Supple, JVD not distended Respiratory: Clear to auscultation bilaterally, Normal air movement Cardiovascular: Regular rate/rhythm, Normal S1 S2 Gastrointestinal: Normal bowel sounds, No tenderness Musculoskeletal: No tenderness Integumentary: No rashes Neurological: Normal speech, Normal tone, Normal affect Lymphatics: No axilla or inguinal lymphadenopathy - Studies Medications List Reviewed: Yes Assessment And Plan - Current Problems (Diagnosis) (1) Acute pancreatitis Onset Date: 03/21/14 Current Visit: No Status: Acute Plan: Acute pancreatitis most likely secondary to hypertriglyceridemia -currently IV fluids, clear liquid diet and now p.o. pain medication with p.r.n. IV as well -currently off the insulin drip. On insulin sliding scale. -repeat lab work at this time. -If patient's pain is not controlled will consider repeating abdominal CT and starting patient on TPN. Qualifiers: Pancreatitis type: other Acute pancreatitis complication: no infection or necrosis Qualified Code(s): K85.80 - Other acute pancreatitis without necrosis or infection (2) Hypertriglyceridemia Onset Date: 11/14/16 Current Visit: No Status: Chronic Plan: Now on gemfibrozil along with simvastatin (3) Diabetes mellitus Onset Date: 11/14/16 Current Visit: No Status: Chronic Plan: A.c. 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 Qualifiers: Esophagitis presence: without esophagitis Qualified Code(s): K21.9 - Gastro -esophageal reflux disease without esophagitis (5) Obesity (BMI 30-39.9) Onset Date: 11/14/16 Current Visit: No Status: Chronic - Plan Pending clinical improvement at this time. Transferred to the regular medical surgical floor. Transition IV pain medication over to oral at this time. Continue with clear liquid diet at this time as well. Discharge Plan: Home Plan to discharge in: Greater than 2 days Critical Care: No
[2019-02-09 15:31] LABS: Absolute Lymphocytes (CBC) 1.1 K/uL (0.7-4.9); Basophils % 0.2 % (0-1.3); Hematocrit 30.4 % (39.6-49.0); Lymphocytes % 19.2 % (15.3-44.8); MPV 10.4 fL (7.6-11.3)
[2019-02-09 15:42] LABS: ALT/SGPT 49 U/L (12-78); AST/SGOT 35 U/L (15-37); Alkaline Phosphatase 70 U/L (45-117); BUN Blood Urea Nitrogen 9 mg/dL (7-18); Bicarbonate 23 mmol/L (21-32); Glucose Level 123 mg/dL (74-106); Potassium 3.5 mmol/L (3.5-5.1); Protein, Total 6.7 g/dL (6.4-8.2); Sodium Level 141 mmol/L (136-145)
[2019-02-09] MEDS: HYDROCODONE/APAP 7.5/325 MG TAB PO PRN (16:15)
[2019-02-10] MEDS: NA CHLORIDE 0.9% 1,000 ML IV SCH ×3 (04:14→20:33)
[2019-02-10 04:34] LABS: Absolute Lymphocytes (CBC) 1.3 K/uL (0.7-4.9); Basophils % 0.3 % (0-1.3); Hematocrit 31.4 % (39.6-49.0); Lymphocytes % 27.2 % (15.3-44.8); MPV 9.9 fL (7.6-11.3); RBC Red Blood Cell Count 3.78 M/uL (4.33-5.43)
[2019-02-10] MEDS: HYDROCODONE/APAP 7.5/325 MG TAB PO PRN (04:41)
[2019-02-10 04:55] LABS: ALT/SGPT 46 U/L (12-78); AST/SGOT 32 U/L (15-37); Albumin 2.9 g/dL (3.4-5.0); Alkaline Phosphatase 71 U/L (45-117); BUN Blood Urea Nitrogen 9 mg/dL (7-18); Bicarbonate 24 mmol/L (21-32); Bilirubin Total 1.1 mg/dL (0.2-1.0); Glucose Level 114 mg/dL (74-106); Lipase 218 U/L (73-393); Potassium 3.5 mmol/L (3.5-5.1); Protein, Total 6.7 g/dL (6.4-8.2); Sodium Level 139 mmol/L (136-145)
[2019-02-10] MEDS: INSULIN -REGULAR HUMAN 50 UNIT/0.5 ML ML SQ SCH ×4 (05:58→20:31)
[2019-02-10] MEDS ORDERED: HYDROCODONE/APAP 7.5/325 MG TAB PO PRN (07:31)
[2019-02-10] MEDS ORDERED: HYDROMORPHONE HCL 0.5 MG/0.5 ML INJ IV PRN (07:31)
[2019-02-10] MEDS: TRAMADOL HCL 50 MG TAB PO PRN (08:51)
[2019-02-10] MEDS: DOCOSAHEXANOIC AC/EPA 1000 MG PO SCH ×3 (08:52→20:32)
[2019-02-10] MEDS: GEMFIBROZIL 600 MG TAB PO SCH ×2 (08:52→20:32)
[2019-02-10] MEDS: PANTOPRAZOLE 40MG TABLET PO SCH ×2 (08:52→16:03)
--- NOTE | 2019-02-10 14:52 | P.PN ---
Subjective Date of Service: 02/10/19 Subjective: Improving Patient's pain has improved. He was upset that his pain medicine was Dc yesterday. He did have severe pain last night but was only able to get oral medication which helped him minimally. At this time his lipase is normal so I will go ahead and start him on a diet and advance as tolerated. Repeat lipase in the morning. Anticipate discharge home in the morning. Review of Systems 10-point ROS is otherwise unremarkable Physical Examination - Vital Signs Temperature: 97.5 F Blood Pressure: 136/78 Pulse: 66 Respirations: 16 Pulse Ox (%): 98 - Physical Exam General: Alert, In no apparent distress, Oriented x3 Respiratory: Clear to auscultation bilaterally, Normal air movement Cardiovascular: Regular rate/rhythm, Normal S1 S2, No murmurs Gastrointestinal: Normal bowel sounds, Soft and benign, Non-distended, No tenderness Musculoskeletal: No clubbing, No swelling, No tenderness Neurological: Normal gait, Normal speech, Normal strength at 5/5 x4 extr, Normal tone, Sensation intact - Studies Medications List Reviewed: Yes Assessment & Plan - Problems (Diagnosis) (1) Abdominal pain Onset Date: 04/28/14 Current Visit: No Status: Acute (2) Acute pancreatitis Onset Date: 03/21/14 Current Visit: No Status: Acute Qualifiers: Pancreatitis type: other Acute pancreatitis complication: no infection or necrosis Qualified Code(s): K85.80 - Other acute pancreatitis without necrosis or infection (3) hypertriglyceridemia induce pancreatitis Onset Date: 07/08/17 Current Visit: No Status: Acute (4) Diabetes mellitus Onset Date: 11/14/16 Current Visit: No Status: Chronic Qualifiers: Diabetes mellitus type: type 2 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 use: without keno terminal operator use Diabetes mellitus complication status: without complication Qualified Code(s): E11.9 - Type 2 diabetes mellitus without complications (5) Fatty liver Onset Date: 11/14/16 Current Visit: No Status: Chronic (6) GERD (gastroesophageal reflux disease) Current Visit: No Status: Chronic Qualifiers: Esophagitis presence: without esophagitis Qualified Code(s): K21.9 - Gastro -esophageal reflux disease without esophagitis (7) Hypertriglyceridemia Onset Date: 11/14/16 Current Visit: No Status: Chronic (8) Obesity (BMI 30-39.9) Onset Date: 11/14/16 Current Visit: No Status: Chronic - Plan Plan: 1. Advanced diet as tolerated 2. Continue Lopid and fish oil 3. Continue with pain control 4. Outpatient follow-up with GI in 5. Anticipate discharge home in the morning 6. GI and DVT per Discharge Plan: Home Plan to discharge in: 24 Hours - Advance Directives Does patient have a Living Will: No Does patient have a Durable POA for Healthcare: No - Code Status/Comfort Care Code Status Assessed: Yes Code Status: Full Code Critical Care: No Time Spent Managing PTS Care (In Minutes): 35
[2019-02-11 05:11] LABS: Absolute Lymphocytes (CBC) 1.3 K/uL (0.7-4.9); Basophils % 0.7 % (0-1.3); Hematocrit 32.4 % (39.6-49.0); Lymphocytes % 29.3 % (15.3-44.8); MPV 9.7 fL (7.6-11.3); RBC Red Blood Cell Count 3.95 M/uL (4.33-5.43)
[2019-02-11 05:30] LABS: ALT/SGPT 48 U/L (12-78); AST/SGOT 29 U/L (15-37); Albumin 2.9 g/dL (3.4-5.0); Alkaline Phosphatase 63 U/L (45-117); BUN Blood Urea Nitrogen 9 mg/dL (7-18); Bicarbonate 25 mmol/L (21-32); Bilirubin Total 0.6 mg/dL (0.2-1.0); Glucose Level 159 mg/dL (74-106); Lipase 284 U/L (73-393); Magnesium 1.9 mg/dL (1.8-2.4); Phosphorus 3.1 mg/dL (2.5-4.9); Potassium 3.3 mmol/L (3.5-5.1); Protein, Total 6.4 g/dL (6.4-8.2); Sodium Level 136 mmol/L (136-145)
[2019-02-11] MEDS: INSULIN -REGULAR HUMAN 50 UNIT/0.5 ML ML SQ SCH ×2 (07:30→12:06)
[2019-02-11 08:00] VITALS: O2SAT 98
[2019-02-11] MEDS: PANTOPRAZOLE 40MG TABLET PO SCH (08:00)
[2019-02-11] MEDS: DOCOSAHEXANOIC AC/EPA 1000 MG PO SCH (08:00)
[2019-02-11] MEDS: GEMFIBROZIL 600 MG TAB PO SCH (08:00)
[2019-02-11] MEDS: NA CHLORIDE 0.9% 1,000 ML IV SCH (09:00)
[2019-02-11 12:20] VITALS: BP 149/72; TEMP 98.3
== END 2019-02-11 14:24 | disposition home or self-care (01) | DRG 440 ==
LOC: ER 10:30 → SUPCPDRO 10:30 → ERHOLD 14:42 → 4TH 16:02 → 3RD-ICU 17:50 → 4TH 02-09 17:45
PROVIDERS: ADMIT Internal Medicine Sleep Medicine; ATTEND Internal Medicine Sleep Medicine
DX: K85.90 Acute pancreatitis without necrosis or infection, unspecified (principal); E78.1 Pure hyperglyceridemia; E11.9 Type 2 diabetes mellitus without complications; K76.0 Fatty (change of) liver, not elsewhere classified; K21.9 Gastro-esophageal reflux disease without esophagitis; E66.9 Obesity, unspecified; Z68.33 Body mass index [BMI] 33.0-33.9, adult
CPT/HCPCS: 36415; 74018; 74178; 80053; 80061; 80076; 81003; 82947; 83605; 83690; 83735; 84100; 84132; 84478; 85025; 94760; 96361; 96372; 96374; 96375; 99285; J1170; J1815; J2405; J2550; J7030; J7040; Q9967

== ENCOUNTER 2019-06-01 14:08 | Inpatient (IN) | payer OTHER ==
--- OUTSIDE RECORDS SUMMARY | 2019-06-01 14:11 | XMS REPORT ---
:1975 Author Organization [facility] Address [address] [place] [address] [address] [place] [address] Care Team Providers Name Role Phone Unavailable Unavailable Unavailable Problems This patient has no known problems. Allergies, Adverse Reactions, Alerts This patient has no known allergies or adverse reactions. Medications This patient has no known medications.
[2019-06-01] MEDS ORDERED: MORPHINE 4 MG/ML SYR ONE (14:37)
[2019-06-01] MEDS ORDERED: NA CHLORIDE 0.9% 1,000 ML ONE ×2 (14:38→18:22)
[2019-06-01] MEDS ORDERED: ONDANSETRON 4 MG/2 ML VIAL ONE (14:38)
[2019-06-01 14:48] LABS: Absolute Lymphocytes (CBC) 1.4 K/uL (0.7-4.9); Basophils % 4.3 % (0-1.3); Hematocrit 41.9 % (39.6-49.0); Lymphocytes % 15.9 % (15.3-44.8); MPV 10.5 fL (7.6-11.3); RBC Red Blood Cell Count 5.17 M/uL (4.33-5.43)
[2019-06-01] MEDS ORDERED: LIDOCAINE VISCOUS 2% SOLN 15 ML UDC ONE (14:50)
[2019-06-01] MEDS ORDERED: FAMOTIDINE 20 MG/2 ML VIAL IV ONE (14:50)
[2019-06-01] MEDS ORDERED: MAGNE/ALUM HYDROXD 30 ML UCUP ONE (14:50)
[2019-06-01 15:11] LABS: Platelet Estimate DECR
[2019-06-01 15:12] LABS: Blood Morphology Comment NOT SEEN (NOT SEEN)
[2019-06-01] MEDS ORDERED: HYDROMORPHONE HCL 1 MG/ML INJ ONE ×2 (15:12→18:13)
[2019-06-01 17:05] LABS: ALT/SGPT 36 U/L (12-78); AST/SGOT 41 U/L (15-37); Albumin 3.3 g/dL (3.4-5.0); Alkaline Phosphatase 59 U/L (45-117); BUN Blood Urea Nitrogen 13 mg/dL (7-18); Bicarbonate 21 mmol/L (21-32); Bilirubin Direct < 0.1 mg/dL (0-0.2); Bilirubin Total 0.5 mg/dL (0.2-1.0); Glucose Level 226 mg/dL (74-106); Protein, Total 7.5 g/dL (6.4-8.2)
[2019-06-01 17:08] LABS: Sodium Level 141 mmol/L (136-145)
[2019-06-01 17:14] LABS: Lipase > 30000 U/L (73-393)
--- NOTE | 2019-06-01 17:31 | ER ---
Nurse's Notes [facility] Name: Javier Rutherford Age: 44 yrs Sex: Male : 1975 Arrival Date: 06/01/2019 Time: 14:10 Bed 24 [facility] MD: Diagnosis: Acute pancreatitis Presentation: 05/31 14:12 Chief complaint: Epigastric pain that radiates to RUQ and nausea x 2 days. Denies hb V/D/fever. Hx of pancreatitis, feels similar to last flare up. Coronavirus screen: Patient denies fever greater than 100.4F, cough, shortness of breath, or difficulty breathing. Proceed with normal triage process. Ebola Screen: No symptoms or risks identified at this time. Initial Sepsis Screen: Does the patient meet any 2 criteria? No. Patient's initial sepsis screen is negative. Does the patient have a suspected source of infection? No. Patient's initial sepsis screen is negative. Risk Assessment: Do you want to hurt yourself or someone else? Patient reports no desire to harm self or others. 14:12 Method Of Arrival: Ambulatory hb 14:12 Acuity: HANY 3 hb 14:12 Onset of symptoms was May 31, 2019. rr5 Historical: - Allergies: 14:14 No Known Allergies; hb - Home Meds: 14:14 fenofibrate 200 mg Oral tab 1 cap once daily [Active]; metformin 1,000 mg Oral tab 1 hb tab 2 times per day [Active]; Tresiba FlexTouch U-100 subcutaneous [Active]; - PMHx: 14:14 Diabetes - NIDDM; fatty liver; Hyperlipidemia; Pancreatitis; hb - PSHx: 14:14 Cholecystectomy; Hernia repair; hb - Immunization history:: Adult Immunizations up to date. - Social history:: Smoking status: Patient denies any tobacco usage or history of. Patient/guardian denies using alcohol, street drugs, The patient lives with family, with spouse. - Family history:: not pertinent. Screenin:16 Abuse screen: Denies threats or abuse. Denies injuries from another. Nutritional rr5 screening: No deficits noted. Tuberculosis screening: No symptoms or risk factors identified. Fall Risk IV access (20 points). Total Morales Fall Scale indicates No Risk (0-24 pts). Assessment: 14:31 General: Appears in no apparent distress. uncomfortable, ill, Behavior is calm, rr5 cooperative, appropriate for age. Pain: Complains of pain in epigastric area Pain radiates to left upper quadrant Pain currently is 10 out of 10 on a pain scale. Quality of pain is described as aching, Pain began gradually, 1 day ago. Is intermittent. Neuro: Level of Consciousness is awake, alert, obeys commands, Oriented to person, place, time, situation. Cardiovascular: Capillary refill < 3 seconds Patient's skin is warm and dry. Respiratory: Airway is patent Respiratory effort is even, unlabored, Respiratory pattern is regular, symmetrical. GI: Abdomen is round non-distended, Bowel sounds present X 4 quads. Abdomen is tender to palpation in epigastric area, right upper quadrant and left upper quadrant Guarding noted in right upper quadrant and left upper quadrant Reports upper abdominal pain, nausea. : No signs and/or symptoms were reported regarding the genitourinary system. EENT: No signs and/or symptoms were reported regarding the EENT system. Derm: Skin is intact, is healthy with good turgor, Skin temperature is warm. Musculoskeletal: Circulation, motion, and sensation intact. Capillary refill < 3 seconds. 15:30 Reassessment: Patient appears in no apparent distress at this time. Patient is alert, rr5 oriented x 3, equal unlabored respirations, skin warm/dry/pink. laboratory called the second blood specimen is hemolyze. Inside laboratory informed to collect blood sample. Patient denies pain at this time. Patient states feeling better. Patient states symptoms have improved. 16:30 Reassessment: Patient appears in no apparent distress at this time. Patient is alert, rr5 oriented x 3, equal unlabored respirations, skin warm/dry/pink. awaiting for result. 17:30 Reassessment: Patient appears in no apparent distress at this time. Patient is alert, rr5 oriented x 3, equal unlabored respirations, skin warm/dry/pink. patient is for admission explained to patient the result and agreed the plan of care. 18:00 Reassessment: Patient appears in no apparent distress at this time. complaints of LUQ rr5 pain. ED provider aware with order made and carried out. 18:00 Pain: Pain currently is 10 out of 10 on a pain scale. rr5 18:26 Reassessment: Patient appears in no apparent distress at this time. Patient is alert, rr5 oriented x 3, equal unlabored respirations, skin warm/dry/pink. hospitalist at bedside examining the patient. with verbal order made and carried out. Patient states symptoms have improved. 19:21 Reassessment: called report to 2nd floor RN Marielena Bryan at this time. rr5 19:29 Reassessment: Patient appears in no apparent distress at this time. Patient and/or ch2 family updated on plan of care and expected duration. Pain level reassessed. Patient is alert, oriented x 3, equal unlabored respirations, skin warm/dry/pink. Pain: Complains of pain in right upper quadrant and abdomen and epigastric area Pain currently is 5 out of 10 on a pain scale. Vital Signs: 14:12 BP 163 / 96; Pulse 95; Resp 16; Temp 98.3; Pulse Ox 100% on R/A; Weight 102.06 kg; hb Height 5 ft. 8 in. (172.72 cm); Pain 9/10; 15:00 BP 129 / 88; Pulse 76; Resp 17; Pulse Ox 99% ; Pain 6/10; rr5 15:39 BP 127 / 84; Pulse 79; Resp 17; Pulse Ox 98% ; Pain 0/10; rr5 19:30 BP 134 / 88; Pulse 90; Resp 16; Temp 96.9; Pulse Ox 100% on R/A; Pain 5/10; ch2 19:34 Pain 5/10; ch2 14:12 Body Mass Index 34.21 (102.06 kg, 172.72 cm) hb ED Course: 14:10 Patient arrived in ED. ag5 14:13 Triage completed. hb 14:14 Arm band placed on. hb 14:15 Adan Resendiz, RN is Primary Nurse. rr5 14:16 Patient has correct armband on for positive identification. Placed in gown. Bed in low rr5 position. Call light in reach. Pulse ox on. NIBP on. 14:23 Arpan Mtz MD is Attending Physician. ma2 14:25 Inserted saline lock: 20 gauge in left forearm, using aseptic technique. Blood rr5 collected. 14:50 Lab(s) recollected, by ED staff, sent to lab. rr5 16:25 Radiology exam delayed due to lab results not completed at this time. (BUN/Creatinine). nj 16:56 CT Abd/Pelvis - IV Contrast Only In Process Unspecified. EDMS 16:56 CT completed. Patient tolerated procedure well. Patient moved to CT. Patient moved back mo from CT. 17:29 Noe Newberry MD is Hospitalizing Provider. ma2 19:31 No provider procedures requiring assistance completed. ch2 19:33 Patient admitted, IV remains in place. ch2 Administered Medications: 14:40 Drug: Zofran (Ondansetron) 4 mg Route: IVP; Site: left forearm; rr5 15:36 Follow up: Response: No adverse reaction rr5 14:40 Drug: NS 0.9% 1000 ml Route: IV; Rate: 1 bolus; Site: left forearm; rr5 15:50 Follow up: Response: No adverse reaction; IV Status: Completed infusion; IV Intake: rr5 1000ml 14:42 Drug: morphine 4 mg {Note: rass 0. .} Route: IVP; Site: left forearm; rr5 15:05 Follow up: Response: No adverse reaction; Pain is decreased; RASS: Alert and Calm (0) rr5 14:55 Drug: GI Cocktail without - (Maalox Suspension 30 ml, Lidocaine Liquid 2 % 15 rr5 ml) Route: PO; 16:55 Follow up: Response: No adverse reaction rr5 14:55 Drug: Pepcid 20 mg Route: IVP; Site: left forearm; rr5 15:55 Follow up: Response: No adverse reaction rr5 15:09 Drug: Dilaudid 1 mg {Note: rass 0.} Route: IVP; Site: left forearm; rr5 15:40 Follow up: Response: No adverse reaction; Pain is decreased; RASS: Alert and Calm (0) rr5 18:13 Drug: Dilaudid 1 mg {Note: rass 0.} Route: IVP; Site: left forearm; rr5 19:34 Follow up: Pain 5/10 Adult ch2 18:21 Drug: NS 0.9% 1000 ml Route: IV; Rate: 150 ml/hr; Site: left forearm; rr5 Intake: 15:50 IV: 1000ml; Total: 1000ml. rr5 Outcome: 17:29 Decision to Hospitalize by Provider. ma2 19:31 Admitted to Med/surg accompanied by tech, via wheelchair, room 229, with chart. ch2 19:31 Condition: improved 19:31 Instructed on the need for admit. 19:36 Patient left the ED. ch2 Signatures: Dispatcher [employer] EDMS [place] Ledezma, RN RN hb Hari Washington Mohammad, MD MD ma2 Wilda Plascencia RN RN ch2 Adan Resendiz RN RN rr5 Emilio Carver ag5 Corrections: (The following items were deleted from the chart) 14:14 14:12 Chief complaint: Epigastric pain that radiates to RUQ and nausea x 2 days. Denies hb V/D/fever. hb
--- NOTE | 2019-06-01 17:31 | EDPHYS ---
Physician Documentation [facility] Name: Javier Rutherford Age: 44 yrs Sex: Male : 1975 Arrival Date: 06/01/2019 Time: 14:10 Bed 24 Private MD: ED Physician Arpan Mtz HPI: 05/31 15:06 This 44 yrs old Male presents to ER via Ambulatory with complaints of ma2 Abdominal Pain. 15:06 The patient presents with abdominal pain. Onset: The symptoms/episode began/occurred ma2 gradually, 1 week(s) ago. Associated signs and symptoms: Pertinent negatives: anorexia, chest pain, dysuria, vomiting. Severity of pain: At its worst the pain was moderate in the emergency department the pain is unchanged. The patient has experienced similar episodes in the past. had lap cholecystectomy done andrey ago . Historical: - Allergies: 14:14 No Known Allergies; hb - Home Meds: 14:14 fenofibrate 200 mg Oral tab 1 cap once daily [Active]; metformin 1,000 mg Oral tab 1 hb tab 2 times per day [Active]; Tresiba FlexTouch U-100 subcutaneous [Active]; - PMHx: 14:14 Diabetes - NIDDM; fatty liver; Hyperlipidemia; Pancreatitis; hb - PSHx: 14:14 Cholecystectomy; Hernia repair; hb - Immunization history:: Adult Immunizations up to date. - Social history:: Smoking status: Patient denies any tobacco usage or history of. Patient/guardian denies using alcohol, street drugs, The patient lives with family, with spouse. - Family history:: not pertinent. ROS: 15:06 Constitutional: Negative for fever, chills, and weight loss, Eyes: Negative for injury, ma2 pain, redness, and discharge. 15:06 All other systems are negative. Exam: 15:06 Constitutional: This is a well developed, well nourished patient who is awake, alert, ma2 and in no acute distress. Chest/axilla: Normal chest wall appearance and motion. Nontender with no deformity. No lesions are appreciated. Cardiovascular: Regular rate and rhythm with a normal S1 and S2. No gallops, murmurs, or rubs. Normal PMI, no JVD. No pulse deficits. Respiratory: Lungs have equal breath sounds bilaterally, clear to auscultation and percussion. No rales, rhonchi or wheezes noted. No increased work of breathing, no retractions or nasal flaring. Abdomen/GI: Soft, non-tender, with normal bowel sounds. No distension or tympany. No guarding or rebound. No evidence of tenderness throughout. Vital Signs: 14:12 BP 163 / 96; Pulse 95; Resp 16; Temp 98.3; Pulse Ox 100% on R/A; Weight 102.06 kg; hb Height 5 ft. 8 in. (172.72 cm); Pain 9/10; 15:00 BP 129 / 88; Pulse 76; Resp 17; Pulse Ox 99% ; Pain 6/10; rr5 15:39 BP 127 / 84; Pulse 79; Resp 17; Pulse Ox 98% ; Pain 0/10; rr5 19:30 BP 134 / 88; Pulse 90; Resp 16; Temp 96.9; Pulse Ox 100% on R/A; Pain 5/10; ch2 19:34 Pain 5/10; ch2 14:12 Body Mass Index 34.21 (102.06 kg, 172.72 cm) hb MDM: 14:23 Patient medically screened. ma2 17:28 Differential diagnosis: Perf. Duodenal Ulcer, Perf. Gastric Ulcer, Peritonitis, ma2 Ureterolithiasis, urinary tract infection. Data reviewed: vital signs, nurses notes. Counseling: I had a detailed discussion with the patient and/or guardian regarding: the historical points, exam findings, and any diagnostic results supporting the discharge/admit diagnosis, the presence of at least one elevated blood pressure reading (>120/80) during this emergency department visit, the need for outpatient follow up, the need for further work-up and treatment in the hospital. Response to treatment: the patient's symptoms have markedly improved after treatment. 05/31 14:24 Order name: Basic Metabolic Panel; Complete Time: 17: tx2 05/31 14:24 Order name: CBC with Diff; Complete Time: 15:34 ma2 05/31 14:24 Order name: Creatinine for Radiology; Complete Time: 17:10 tx2 05/31 14:24 Order name: Hepatic Function; Complete Time: 17:23 tx2 05/31 14:24 Order name: Lipase; Complete Time: 17: [facility] 05/31 15:13 Order name: Manual Differential; Complete Time: 15:34 [facility] 05/31 15:36 Order name: Urine Dipstick--Ancillary (enter results) 05/31 18:01 Order name: CBC with Automated Diff [facility] 05/31 18:01 Order name: CBC with Automated Diff [facility] 05/31 18:01 Order name: CBC with Automated Diff [facility] 05/31 18:01 Order name: CBC with Automated Diff [facility] 05/31 18:01 Order name: Comprehensive Metabolic Panel [facility] 05/31 18:01 Order name: Comprehensive Metabolic Panel [facility] 05/31 18:01 Order name: Comprehensive Metabolic Panel [facility] 05/31 14:24 Order name: IV Saline Lock; Complete Time: 14:28 [facility] 05/31 14:33 Order name: CT Abd/Pelvis - IV Contrast Only [facility] 05/31 18:00 Order name: CONS Pharmacy Consult [facility] 05/31 18:00 Order name: NPO [facility] 05/31 18:01 Order name: Comprehensive Metabolic Panel [facility] 05/31 18:03 Order name: Lipid Profile [facility] 05/31 14:24 Order name: Labs collected and sent; Complete Time: 14:28 [facility] 05/31 14:24 Order name: Urine Dipstick-Ancillary (obtain specimen); Complete Time: 15:35 [facility] 05/31 14:45 Order name: Labs - recollect needed; Complete Time: 15:01 05/31 15:35 Order name: Labs - recollect needed: lab will recollect specimen; Complete Time: 15:50 bd Administered Medications: 14:40 Drug: Zofran (Ondansetron) 4 mg Route: IVP; Site: left forearm; rr5 15:36 Follow up: Response: No adverse reaction rr5 14:40 Drug: NS 0.9% 1000 ml Route: IV; Rate: 1 bolus; Site: left forearm; rr5 15:50 Follow up: Response: No adverse reaction; IV Status: Completed infusion; IV Intake: rr5 1000ml 14:42 Drug: morphine 4 mg {Note: rass 0. .} Route: IVP; Site: left forearm; rr5 15:05 Follow up: Response: No adverse reaction; Pain is decreased; RASS: Alert and Calm (0) rr5 14:55 Drug: GI Cocktail without - (Maalox Suspension 30 ml, Lidocaine Liquid 2 % 15 rr5 ml) Route: PO; 16:55 Follow up: Response: No adverse reaction rr5 14:55 Drug: Pepcid 20 mg Route: IVP; Site: left forearm; rr5 15:55 Follow up: Response: No adverse reaction rr5 15:09 Drug: Dilaudid 1 mg {Note: rass 0.} Route: IVP; Site: left forearm; rr5 15:40 Follow up: Response: No adverse reaction; Pain is decreased; RASS: Alert and Calm (0) rr5 18:13 Drug: Dilaudid 1 mg {Note: rass 0.} Route: IVP; Site: left forearm; rr5 19:34 Follow up: Pain 07/17 Adult ch2 18:21 Drug: NS 0.9% 1000 ml Route: IV; Rate: 150 ml/hr; Site: left forearm; rr5 Disposition: 06/01/19 17:29 Hospitalization ordered by Noe Newberry for Observation. Preliminary diagnosis is Acute pancreatitis. - Bed requested for Telemetry/MedSurg (Inpatient). - Status is Observation. ch2 - Condition is Stable. - Problem is new. - Symptoms are unchanged. Signatures: Dispatcher [employer] EDMS Marcie Marie [place] Ledezma, ARACELI RN Arpan Mtz MD MD tx2 Wilda Plascenica RN RN ch2 Adan Resendiz, ARACELI RN rr5 Corrections: (The following items were deleted from the chart) 18:03 18:01 Lipid Profile ordered. EDMO EDMS 18:03 18:01 Lipid Profile ordered. EDMO EDMS 18:46 17:29 Hospitalization Ordered by Noe Newberry MD for Observation. Preliminary bd diagnosis is Acute pancreatitis. Bed requested for Telemetry/MedSurg (Inpatient). Status is Observation. Condition is Stable. Problem is new. Symptoms are unchanged. [facility] 19:36 18:46 06/01/2019 17:29 Hospitalization Ordered by Noe Newberry MD for Observation. ch2 Preliminary diagnosis is Acute pancreatitis. Bed requested for Telemetry/MedSurg (Inpatient). Status is Observation. Condition is Stable. Problem is new. Symptoms are unchanged. bd
--- NOTE | 2019-06-01 17:38 | RAD REPORT ---
EXAM DESCRIPTION: CT - Abdomen Pelvis W Contrast - 06/01/2019 4:55 pm CLINICAL HISTORY: Abdominal pain COMPARISON: February 2019 TECHNIQUE: Computed axial tomography of the abdomen pelvis was obtained. 100 cc Isovue-300 was admin istered intravenously. Oral contrast was not requested which limits evaluation of bowel. All CT scans are performed using dose optimization technique as appropriate and may include automated exposure control or mA/KV adjustment according to patient size. FINDINGS: Fatty liver. Cholecystectomy Small calcification is present within the pancreas perhaps related to chronic pancreatitis. Minimal s tranding adjacent to pancreas. Spleen, adrenal and kidneys appear unremarkable. There is no evidence of diverticulitis. Normal appendix IMPRESSION: Minimal stranding adjacent to the pancreas may indicate a minimal pancreatitis.
--- NOTE | 2019-06-01 17:56 | P.HP ---
Certification for Inpatient Patient admitted to: Inpatient Practitioner: I am a practitioner with admitting privileges, knowledge of patient current condition, hospital course, and medical plan of care. Services: Services provided to patient in accordance with Admission requirements found in Title 42 Section 412.3 of the Code of Federal Regulations Patient History Date of Service: 06/01/19 Reason for admission: Abdominal pain History of Present Illness: Mr. Garland is 44 y.o male with a history of acute pancreatitis secondary to hyper triglyceridemia who presented to the hospital with complaints of epigastric pain started yesterday. Pain has been constant, aching, radiates through to the back, associated with nausea without vomiting, 10/10 out was intensity and that he recognized this pain to be similar to when he had acute pancreatitis. Patient reports compliance with medication however not with low-fat carb controlled diet. He status postcholecystectomy. He denies any alcohol use/abuse. Allergies No Known Allergies Allergy (Verified 01/31/18 05:25) Home Medications: Insulin Degludec [Tresiba Flextouch U-100] 20 units SQ DAILY 03/29/18 Metformin HCl [Glucophage] 1,000 mg PO BIDWM 03/29/18 Pantoprazole Sodium [Protonix] 40 mg PO DAILY 03/29/18 Docosahexanoic AC/Epa [Fish Oil 1,000 MG*] 2,000 mg PO BID #120 cap 02/10/19 Codeine/APAP [Tylenol W/Codeine #3 tab] 1 tab PO Q6HP PRN #30 tab 02/11/19 Fenofibrate,Micronized [Fenofibrate] 200 mg PO BEDTIME #30 capsule 02/11/19 - Past Medical/Surgical History Diabetic: Yes -: pancreatitis -: hyperlipidemia -: DM2 -: pancreatic mass -: fatty liver -: Cholecystectomy -: Hernia sx -: vasectomy - Family History Sister -: Diabetes, Cancer Mother -: Diabetes Brother -: GI disease, Diabetes Notes: Pancreatitis - Social History Smoking Status: Never smoker Alcohol use: Yes CD- Drugs: No Caffeine use: Yes Review of Systems 10-point ROS is otherwise unremarkable Gastrointestinal: Nausea, Abdominal Pain Physical Examination - Vital Signs Temperature: 98.3 F Blood Pressure: 163/96 Pulse: 95 Respirations: 14 Pulse Ox (%): 100 - Physical Exam General: Alert, In no apparent distress HEENT: Atraumatic, PERRLA, Mucous membr. moist/pink, EOMI, Sclerae nonicteric Neck: Supple, 2+ carotid pulse no bruit, No LAD, Without JVD or thyroid abnormality Respiratory: Clear to auscultation bilaterally, Normal air movement Cardiovascular: Regular rate/rhythm, Normal S1 S2 Gastrointestinal: Normal bowel sounds, Non-distended, No masses, Tenderness Musculoskeletal: No tenderness Integumentary: No rashes Neurological: Normal gait, Normal speech, Normal strength at 5/5 x4 extr, Normal tone, Normal affect Lymphatics: No axilla or inguinal lymphadenopathy - Studies Laboratory Data (last 24 hrs) 06/01/19 15:48: Creatinine 0.79 06/01/19 15:48: Sodium 141, Potassium 5.0, BUN 13, Creatinine 0.77, Glucose 226 H, Total Bilirubin 0.5, AST 41 H, ALT 36, Alkaline Phosphatase 59, Lipase > 44540 H 06/01/19 14:25: WBC 8.9, Hgb 15.6, Hct 41.9, Plt Count 199 Imagings Data: CT abdomen report reviewed Assessment and Plan - Plan Mr. Garland is 44-year-old male presented with abdominal pain, consistent with acute pancreatitis. #Acute pancreatitis-recurrent pancreatitis. Previous pancreatitis was related to hypertriglyceridemia. Patient is status post laparoscopic cholecystectomy. --lipid panel pending. If triglyceride is remarkable elevated, will consider IV insulin. -patient denies any history of alcohol abuse. -CT abdomen consistent with acute pancreatitis. Lipase greater than 30,000. -aggressive IV hydration, pain control and NPO. -monitor vital signs. #Hypertension-denies any prior history. -likely related to pain. -IV hydralazine p.r.n.. Next and hash that # Diabetes mellitus-check hemoglobin A1c. BG Q 6 hr and continue insulin sliding scale -hold metformin # History of triglyceridemia-lipid panel pending. Hold fenofibrate. DVT prophylaxis-SCD Patient is full code. Disposition-admission for acute pancreatitis Discharge Plan: Home - Advance Directives Does patient have a Living Will: No Does patient have a Durable POA for Healthcare: No
[2019-06-01] MEDS ORDERED: MORPHINE 2 MG/ML SYR IV PRN (17:57)
[2019-06-01] MEDS ORDERED: ONDANSETRON 4 MG/2 ML VIAL IV PRN (17:57)
[2019-06-01] MEDS ORDERED: GLUCAGON 1 MG/VIAL IM PRN ×2 (19:48→21:33)
[2019-06-01] MEDS ORDERED: D50W 25 GM/50 ML SYRINGE/VIAL IV PRN ×2 (19:48→21:33)
[2019-06-01] MEDS: NA CHLORIDE 0.9% 1,000 ML IV SCH (19:59)
[2019-06-01 20:05] VITALS: O2SAT 100
[2019-06-01] MEDS ORDERED: HYDROMORPHONE HCL 1 MG/ML INJ IV ONE (20:26)
[2019-06-01 20:43] LABS: Urine Blood TRACE (NEG); Urine Glucose 2+ (NEG); Urine Protein 2+ (NEG); Urine Specific Gravity >1.030 (1.005-1.030); Urine pH 5.5 (5.0-7.0)
[2019-06-01] MEDS ORDERED: INSULIN -REGULAR HUMAN 50 UNIT/0.5 ML ML SQ SCH (21:00)
[2019-06-01 23:11] VITALS: BMI 33.4
[2019-06-02] MEDS: NA CHLORIDE 0.9% 1,000 ML IV SCH ×4 (00:35→20:33)
[2019-06-02] MEDS: HYDROMORPHONE HCL 1 MG/ML INJ IV PRN ×5 (01:55→20:31)
[2019-06-02] MEDS: ONDANSETRON 4 MG/2 ML VIAL IV PRN ×5 (02:31→20:31)
[2019-06-02 06:20] LABS: Absolute Lymphocytes (CBC) 1.1 K/uL (0.7-4.9); Basophils % 0.3 % (0-1.3); Hematocrit 38.5 % (39.6-49.0); Lymphocytes % 9.8 % (15.3-44.8); RBC Red Blood Cell Count 4.81 M/uL (4.33-5.43)
[2019-06-02] MEDS: INSULIN -REGULAR HUMAN 50 UNIT/0.5 ML ML SQ SCH ×4 (06:22→17:47)
[2019-06-02 07:04] LABS: HDL Cholesterol 43 mg/dL (40-60); LDL Cholesterol, Calculated ND (<130)
[2019-06-02 07:14] LABS: ALT/SGPT 38 U/L (12-78); AST/SGOT 19 U/L (15-37); Alkaline Phosphatase 68 U/L (45-117); Bilirubin Total 0.7 mg/dL (0.2-1.0); Protein, Total 7.7 g/dL (6.4-8.2)
[2019-06-02 07:16] LABS: LDL, Direct 94 mg/dL (100-129)
[2019-06-02 07:28] LABS: Potassium 4.3 mmol/L (3.5-5.1)
[2019-06-02 07:29] LABS: Albumin 3.6 g/dL (3.4-5.0); Bicarbonate 24 mmol/L (21-32); Sodium Level 139 mmol/L (136-145)
[2019-06-02 07:30] LABS: BUN Blood Urea Nitrogen 11 mg/dL (7-18); Glucose Level 221 mg/dL (74-106); Lipase 4681 U/L (73-393)
--- NOTE | 2019-06-02 12:32 | P.PN ---
Subjective Date of Service: 06/02/19 Chief Complaint: Abdominal pain Subjective: Improving mild improvement. Physical Examination - Vital Signs Temperature: 98.5 F Blood Pressure: 119/74 Pulse: 95 Respirations: 18 Pulse Ox (%): 94 - Physical Exam General: Alert, In no apparent distress HEENT: Atraumatic, PERRLA, EOMI Neck: Supple, JVD not distended Respiratory: Clear to auscultation bilaterally, Normal air movement Cardiovascular: Regular rate/rhythm, Normal S1 S2 Gastrointestinal: Normal bowel sounds, Tenderness Musculoskeletal: No tenderness Integumentary: No rashes Neurological: Normal speech, Normal tone, Normal affect Lymphatics: No axilla or inguinal lymphadenopathy - Studies Laboratory Data (last 24 hrs) 06/01/19 15:48: Creatinine 0.79 06/01/19 15:48: Sodium 141, Potassium 5.0, BUN 13, Creatinine 0.77, Glucose 226 H, Total Bilirubin 0.5, AST 41 H, ALT 36, Alkaline Phosphatase 59, Lipase > 28430 H 06/01/19 14:25: WBC 8.9, Hgb 15.6, Hct 41.9, Plt Count 199 Assessment & Plan Discharge Plan: Home - Code Status/Comfort Care Code Status Assessed: Yes Code Status: Full Code Physician Review Additional Text: Mr. Garland is 44-year-old male presented with abdominal pain, consistent with acute pancreatitis. #Acute pancreatitis-recurrent pancreatitis. Previous pancreatitis was related to hypertriglyceridemia. Patient is status post laparoscopic cholecystectomy. -lipid panel with trig >2000. initiate on fenofibrate. trend, will consider IV insulin if not improving. -patient denies any history of alcohol abuse. -CT abdomen consistent with acute pancreatitis. Lipase greater than 30,000-> 4600. -aggressive IV hydration, pain control and NPO. -monitor vital signs. #Hypertension-denies any prior history. -likely related to pain. -IV hydralazine p.r.n. # Diabetes mellitus-check hemoglobin A1c. BG Q 6 hr and continue insulin sliding scale -hold metformin # History of triglyceridemia. DVT prophylaxis-SCD Patient is full code. Disposition-pending clinical improvement.
[2019-06-02] MEDS: HOME MED 1 EA UNK (Fenofibrate,Micronized [Fenofibrate] 200 MG) PO SCH (20:58)
[2019-06-02] MEDS: ATORVASTATIN 20 MG TAB PO SCH (20:58)
[2019-06-03] MEDS: ONDANSETRON 4 MG/2 ML VIAL IV PRN ×2 (00:50→06:19)
[2019-06-03] MEDS: HYDROMORPHONE HCL 1 MG/ML INJ IV PRN ×5 (00:50→23:40)
[2019-06-03] MEDS: NA CHLORIDE 0.9% 1,000 ML IV SCH ×4 (03:03→23:43)
[2019-06-03 05:51] LABS: Absolute Lymphocytes (CBC) 1.2 K/uL (0.7-4.9); Basophils % 0.4 % (0-1.3); Hematocrit 36.7 % (39.6-49.0); Lymphocytes % 13.2 % (15.3-44.8); MPV 9.8 fL (7.6-11.3); RBC Red Blood Cell Count 4.48 M/uL (4.33-5.43)
[2019-06-03] MEDS: INSULIN -REGULAR HUMAN 50 UNIT/0.5 ML ML SQ SCH ×4 (06:00→17:26)
[2019-06-03 06:33] LABS: HDL Cholesterol 44 mg/dL (40-60); LDL Cholesterol, Calculated ND (<130)
[2019-06-03 06:37] LABS: ALT/SGPT 37 U/L (12-78); AST/SGOT 21 U/L (15-37); Albumin 2.8 g/dL (3.4-5.0); Alkaline Phosphatase 68 U/L (45-117); BUN Blood Urea Nitrogen 9 mg/dL (7-18); Bicarbonate 21 mmol/L (21-32); Bilirubin Total 0.8 mg/dL (0.2-1.0); Glucose Level 157 mg/dL (74-106); Lipase 799 U/L (73-393); Potassium 3.6 mmol/L (3.5-5.1); Protein, Total 6.8 g/dL (6.4-8.2); Sodium Level 137 mmol/L (136-145)
[2019-06-03 07:06] LABS: LDL, Direct 59 mg/dL (100-129)
[2019-06-03] MEDS ORDERED: FENOFIBRATE 160 MG TAB PO SCH (09:00)
--- NOTE | 2019-06-03 13:18 | P.PN ---
Subjective Date of Service: 06/03/19 Chief Complaint: Abdominal pain still with epigastric pain 7-8; improved Physical Examination - Vital Signs Temperature: 98.2 F Blood Pressure: 102/53 Pulse: 88 Respirations: 17 Pulse Ox (%): 96 - Physical Exam General: Alert, In no apparent distress HEENT: Atraumatic, PERRLA, EOMI Neck: Supple, JVD not distended Respiratory: Clear to auscultation bilaterally, Normal air movement Cardiovascular: Regular rate/rhythm, Normal S1 S2 Gastrointestinal: Normal bowel sounds, Tenderness Musculoskeletal: No tenderness Integumentary: No rashes Neurological: Normal speech, Normal tone, Normal affect Lymphatics: No axilla or inguinal lymphadenopathy - Studies Laboratory Tests 06/03/19 06/03/19 06/03/19 05:20 05:20 05:20 WBC 9.2 D RBC 4.48 Hct 36.7 L Lymphocytes % 13.2 L Sodium 137 Potassium 3.6 Carbon Dioxide 21 BUN 9 Creatinine 0.73 Glucose 157 H Calcium 8.0 L Albumin 2.8 L Globulin 4.0 H Triglycerides 1131 H Cholesterol 289 H LDL Cholesterol Direct 59 L Lipase 799 H Medications List Reviewed: Yes Assessment & Plan Physician Review: Patient Assessed, Agree with Above Assessment and Plan Physician Review Additional Text: Mr. Garland is 44-year-old male presented with abdominal pain, consistent with acute pancreatitis. #Acute pancreatitis-recurrent pancreatitis. Previous pancreatitis was related to hypertriglyceridemia. Patient is status post laparoscopic cholecystectomy. -lipid panel with trig >2000. initiated on fenofibrate, improving with hydration. trend, will consider IV insulin if not improving. -patient denies any history of alcohol abuse. -CT abdomen consistent with acute pancreatitis. Lipase greater than 30,000-> 4600->799. -continue IV hydration, initiate clear liquid diet. advance slowly -monitor vital signs. #Hypertension-denies any prior history. -likely related to pain. -IV hydralazine p.r.n. # Diabetes mellitus-check hemoglobin A1c. BGAC & HS and continue insulin sliding scale -hold metformin # History of triglyceridemia. DVT prophylaxis-SCD Patient is full code. Disposition-possible dc in a.m
[2019-06-03] MEDS: HOME MED 1 EA UNK (Fenofibrate,Micronized [Fenofibrate] 200 MG) PO SCH (21:00)
[2019-06-03] MEDS: ATORVASTATIN 20 MG TAB PO SCH (22:22)
[2019-06-04] MEDS: INSULIN -REGULAR HUMAN 50 UNIT/0.5 ML ML SQ SCH ×2 (06:00)
[2019-06-04 06:28] LABS: Absolute Lymphocytes (CBC) 1.2 K/uL (0.7-4.9); Basophils % 0.2 % (0-1.3); Hematocrit 34.4 % (39.6-49.0); Lymphocytes % 22.5 % (15.3-44.8); MPV 9.7 fL (7.6-11.3); RBC Red Blood Cell Count 4.21 M/uL (4.33-5.43)
[2019-06-04] MEDS: NA CHLORIDE 0.9% 1,000 ML IV SCH (06:39)
[2019-06-04] MEDS ORDERED: INSULIN -REGULAR HUMAN 50 UNIT/0.5 ML ML SQ SCH (07:30)
[2019-06-04 07:40] LABS: ALT/SGPT 39 U/L (12-78); AST/SGOT 24 U/L (15-37); Albumin 2.7 g/dL (3.4-5.0); Alkaline Phosphatase 66 U/L (45-117); BUN Blood Urea Nitrogen 9 mg/dL (7-18); Bicarbonate 25 mmol/L (21-32); Bilirubin Total 0.6 mg/dL (0.2-1.0); Glucose Level 122 mg/dL (74-106); Lipase 387 U/L (73-393); Potassium 3.3 mmol/L (3.5-5.1); Protein, Total 6.8 g/dL (6.4-8.2); Sodium Level 139 mmol/L (136-145)
[2019-06-04] MEDS ORDERED: NA CHLORIDE 0.9% 1,000 ML IV SCH (09:00)
[2019-06-04 09:39] VITALS: BP 114/71; TEMP 98
[2019-06-04 09:52] LABS: LDL, Direct 109 mg/dL (100-129)
--- NOTE | 2019-06-04 11:55 | P.DS ---
Admission Date: 06/01/19 Discharge Date: 06/05/19 Disposition: ROUTINE DISCHARGE Discharge Condition: GOOD Reason for Admission: Abdominal pain Brief History of Present Illness: Admission diagnosis-acute pancreatitis Hypertriglyceridemia Diabetes mellitus Elevated blood pressure Discharge diagnosis-acute pancreatitis Hypertriglyceridemia Diabetes mellitus Elevated blood pressure Hospital Course: Mr. Garland is 44-year-old male with history of pancreatitis, hypertriglyceridemia, diabetes mellitus who presented to the hospital with epigastric pain. Initial evaluation found patient to have lipase greater than 30 ,000 consistent with acute pancreatitis. Patient is status postcholecystectomy and denied any alcohol use. Further evaluation with lipid panel showed elevated triglycerides at >2000. Patient was initiated on supportive measures with IV hydration, pain control and bowel rest. His clinical status improved and lipase trended down. He has been initiated on oral intake and tolerating. Compliance with low-fat diet and anti-lipid medication has been strongly advice. She has history of diabetes mellitus, uncontrolled given elevated hemoglobin A1c. Compliance with medication and diet also recommended. He remained hemodynamically stable for discharge. Vital Signs/Physical Exam: Temp Pulse Resp BP Pulse Ox 98 F 70 16 114/71 97 06/04/19 08:00 06/04/19 08:00 06/04/19 08:00 06/04/19 08:00 06/04/19 08:00 General: Alert, In no apparent distress HEENT: Atraumatic, PERRLA, EOMI Neck: Supple, JVD not distended Respiratory: Clear to auscultation bilaterally, Normal air movement Cardiovascular: Regular rate/rhythm, Normal S1 S2 Gastrointestinal: Normal bowel sounds, No tenderness Musculoskeletal: No tenderness Integumentary: No rashes Neurological: Normal speech, Normal tone, Normal affect Lymphatics: No axilla or inguinal lymphadenopathy Laboratory Data at Discharge: WBC 5.5 K/uL (4.3-10.9) D 06/04/19 06:06 Hgb 11.5 g/dL (13.6-17.9) L 06/04/19 06:06 Hct 34.4 % (39.6-49.0) L 06/04/19 06:06 Plt Count 163 K/uL (152-406) 06/04/19 06:06 Sodium 139 mmol/L (136-145) 06/04/19 06:06 Potassium 3.3 mmol/L (3.5-5.1) L 06/04/19 06:06 BUN 9 mg/dL (7-18) 06/04/19 06:06 Creatinine 0.70 mg/dL (0.55-1.3) 06/04/19 06:06 Glucose 122 mg/dL (74-106) H 06/04/19 06:06 Total Bilirubin 0.6 mg/dL (0.2-1.0) 06/04/19 06:06 AST 24 U/L (15-37) 06/04/19 06:06 ALT 39 U/L (12-78) 06/04/19 06:06 Alkaline Phosphatase 66 U/L (45-117) 06/04/19 06:06 Triglycerides 648 mg/dL (<150) H 06/04/19 09:18 Cholesterol 289 mg/dL (<200) H 06/03/19 05:20 LDL Cholesterol Direct 109 mg/dL (100-129) 06/04/19 09:18 HDL Cholesterol 44 mg/dL (40-60) 06/03/19 05:20 Cholesterol/HDL Ratio 6.57 06/03/19 05:20 Lipase 387 U/L (73-393) 06/04/19 06:06 Home Medications: Insulin Degludec [Tresiba Flextouch U-100] 30 units SQ DAILY 03/29/18 Metformin HCl [Glucophage] 1,000 mg PO BIDWM 03/29/18 Pantoprazole Sodium [Protonix] 40 mg PO DAILY 03/29/18 Docosahexanoic AC/Epa [Fish Oil 1,000 MG*] 2,000 mg PO BID #120 cap 02/10/19 Atorvastatin Calcium 40 mg PO BEDTIME #40 tablet 06/04/19 Codeine/APAP [Tylenol #3*] 1 tab PO Q6HP PRN #30 tab 06/04/19 Fenofibrate,Micronized [Fenofibrate] 200 mg PO BEDTIME #30 capsule 06/04/19 New Medications: Atorvastatin Calcium 40 mg PO BEDTIME #40 tablet Codeine/APAP [Tylenol #3*] 1 tab PO Q6HP PRN #30 tab PRN Reason: Pain Fenofibrate,Micronized [Fenofibrate] 200 mg PO BEDTIME #30 capsule Patient Discharge Instructions: Compliance with medications and diet. Follow up with pcp for further care. Diet: ADA Followup: Unknown,U [Primary Care Provider] - 1-2 Days
== END 2019-06-04 12:28 | disposition home or self-care (01) | DRG 440 ==
LOC: ER 14:08 → ERHOLD 17:57 → 2ND 19:22
PROVIDERS: ADMIT Hospitalist; ATTEND Hospitalist
DX: K85.90 Acute pancreatitis without necrosis or infection, unspecified (principal); E11.9 Type 2 diabetes mellitus without complications; I10 Essential (primary) hypertension; E78.1 Pure hyperglyceridemia; E78.5 Hyperlipidemia, unspecified; Z86.39 Personal history of other endocrine, nutritional and metabolic disease; Z90.49 Acquired absence of other specified parts of digestive tract; Z79.899 Other long term (current) drug therapy; Z79.4 Long term (current) use of insulin; Z91.11 Patient's noncompliance with dietary regimen
CPT/HCPCS: 36415; 74177; 80048; 80053; 80061; 80076; 81003; 82947; 83036; 83690; 84478; 85025; 96361; 96374; 96375; 99285; J1170; J2270; J2405; J7030; Q9967

== ENCOUNTER 2019-07-30 17:32 | Inpatient (IN) | payer OTHER ==
--- OUTSIDE RECORDS SUMMARY | 2019-07-30 17:34 | XMS REPORT ---
:1975 Author Organization [facility] t Address [address] [place] [address] [address] [place] [address] Care Team Providers Name Role Phone Unavailable Unavailable Unavailable Problems This patient has no known problems. Allergies, Adverse Reactions, Alerts This patient has no known allergies or adverse reactions. Medications This patient has no known medications. Procedures This patient has no known procedures. Results This patient has no known results.
[2019-07-30] MEDS ORDERED: NA CHLORIDE 0.9% 1,000 ML ONE (18:28)
[2019-07-30] MEDS ORDERED: ONDANSETRON 4 MG/2 ML VIAL ONE (18:28)
[2019-07-30] MEDS ORDERED: MORPHINE 4 MG/ML SYR ONE ×2 (18:28→23:16)
[2019-07-30 19:10] LABS: Absolute Lymphocytes (CBC) 1.8 K/uL (0.7-4.9); Basophils % 1.5 % (0-1.3); Hematocrit 41.4 % (39.6-49.0); Lymphocytes % 23.7 % (15.3-44.8); MPV 10.2 fL (7.6-11.3); RBC Red Blood Cell Count 5.05 M/uL (4.33-5.43)
[2019-07-30 19:44] LABS: ALT/SGPT 49 U/L (12-78); AST/SGOT 22 U/L (15-37); Alkaline Phosphatase 77 U/L (45-117); BUN Blood Urea Nitrogen 16 mg/dL (7-18); Bicarbonate 22 mmol/L (21-32); Bilirubin Direct < 0.1 mg/dL (0-0.2); Bilirubin Total 0.4 mg/dL (0.2-1.0); Glucose Level 398 mg/dL (74-106); Lipase 1261 U/L (73-393); Protein, Total 8.1 g/dL (6.4-8.2); Sodium Level 138 mmol/L (136-145)
--- NOTE | 2019-07-30 19:57 | ER ---
Nurse's Notes [facility] Name: Javier Rutherford Age: 44 yrs Sex: Male : 1975 Arrival Date: 07/30/2019 Time: 17:34 Bed 8 Private MD: Diagnosis: Acute pancreatitis Presentation: 07/29 18:05 Chief complaint: Patient states: abd pain since 1200 today, c/o nausea. Hx sv pancreatitis. Coronavirus screen: Proceed with normal triage. Patient denies a cough. Patient denies shortness of breath or difficulty breathing. Patient denies measured and/or subjective temperature greater than 100.4F prior to today's visit. Patient denies travel on a cruise ship or to a country the [facility] currently lists as an affected area. Patient denies contact with known and/or suspected case of COVID-19. Ebola Screen: No symptoms or risks identified at this time. Risk Assessment: Do you want to hurt yourself or someone else? Patient reports no desire to harm self or others. Onset of symptoms was July 30, 2019. 18:05 Method Of Arrival: Ambulatory sv 18:05 Acuity: HANY 2 sv 18:06 Initial Sepsis Screen: Does the patient meet any 2 criteria? No. Patient's initial sv sepsis screen is negative. Does the patient have a suspected source of infection? No. Patient's initial sepsis screen is negative. Triage Assessment: 18:05 General: Appears uncomfortable, Behavior is cooperative, restless. Pain: Complains of sv pain in abdomen. Neuro: Level of Consciousness is awake, alert, obeys commands, Gait is steady. Respiratory: Airway is patent Respiratory effort is even, unlabored, Respiratory pattern is regular, symmetrical. GI: Reports upper abdominal pain, nausea. Historical: - Allergies: 18:06 No Known Allergies; sv - PMHx: 18:06 Diabetes - NIDDM; fatty liver; Hyperlipidemia; Pancreatitis; sv - PSHx: 18:06 Cholecystectomy; Hernia repair; sv - Immunization history:: Adult Immunizations up to date. - Social history:: Smoking status: unknown. Screenin:23 Abuse screen: Denies threats or abuse. Nutritional screening: No deficits noted. em Tuberculosis screening: No symptoms or risk factors identified. Fall Risk None identified. Assessment: 18:20 General: Appears uncomfortable, Behavior is calm, cooperative, appropriate for age, em Denies fever. Pain: Complains of pain in left upper quadrant Pain currently is 10 out of 10 on a pain scale. Pain began noon. Neuro: Level of Consciousness is awake, alert, obeys commands, Oriented to person, place, time, situation, Appropriate for age. Cardiovascular: Capillary refill < 3 seconds Patient's skin is warm and dry. Respiratory: Airway is patent Respiratory effort is even, unlabored, Respiratory pattern is regular, symmetrical. GI: Abdomen is flat, Bowel sounds present X 4 quads. Abd is soft X 4 quads Abdomen is tender to palpation in right upper quadrant and left upper quadrant Reports nausea, Patient currently denies diarrhea, vomiting. Derm: Skin is intact, is healthy with good turgor, Skin is pink, warm \T\ dry. Musculoskeletal: Capillary refill < 3 seconds, Range of motion: intact in all extremities. 20:22 Reassessment: Patient and/or family updated on plan of care and expected duration. Pain rv level reassessed. Patient is alert, oriented x 3, equal unlabored respirations, skin warm/dry/pink. Pain: Complains of pain in abdomen and right upper quadrant. Neuro: Level of Consciousness is awake, alert, obeys commands, Oriented to person, place, time, situation. 21:23 Reassessment: Patient and/or family updated on plan of care and expected duration. Pain rv level reassessed. Patient is alert, oriented x 3, equal unlabored respirations, skin warm/dry/pink. Patient states feeling better. Patient states symptoms have improved. Pain: Pain currently is 3 out of 10 on a pain scale. Vital Signs: 18:06 BP 144 / 90; Pulse 80; Resp 28; Temp 98.8; Pulse Ox 100% ; Weight 99.79 kg; Height 5 sv ft. 8 in. (172.72 cm); 20:05 BP 149 / 91; Pulse 85; Resp 25; Pulse Ox 99% ; Pain 10/10; rr5 21:23 BP 134 / 80; Pulse 81; Resp 18; Pulse Ox 96% on R/A; Pain 3/10; rv 21:24 Pain 3/10; rv 22:21 BP 130 / 85; Pulse 74; Resp 16; Temp 98.5; Pulse Ox 97% on R/A; Pain 3/10; rv 18:06 Body Mass Index 33.45 (99.79 kg, 172.72 cm) sv ED Course: 17:34 Patient arrived in ED. fj1 18:06 Triage completed. sv 18:06 Arm band placed on. sv 18:11 Oz Rios, RN is Primary Nurse. em 18:13 Isaías Blackburn PA is PHCP. jr8 18:13 Kolton Licona MD is Attending Physician. jr8 18:23 Patient has correct armband on for positive identification. Call light in reach. Pulse em ox on. NIBP on. 18:25 Initial lab(s) drawn, by me, sent to lab. Inserted saline lock: 22 gauge in right lt1 antecubital area, using aseptic technique. 18:25 Basic Metabolic Panel Sent. lt1 18:25 CBC with Diff Sent. lt1 18:26 Hepatic Function Sent. lt1 18:26 Lipase Sent. lt1 19:56 Arpan Mckeon MD is Hospitalizing Provider. jr8 21:24 No provider procedures requiring assistance completed. rv 22:22 IV is patent, with fluids infusing freely, with good blood return, Patient admitted, IV rv remains in place. Administered Medications: 18:24 Drug: Zofran (Ondansetron) 4 mg Route: IVP; Site: right antecubital; em 20:25 Follow up: Response: No adverse reaction rv 18:24 Drug: NS 0.9% 1000 ml Route: IV; Rate: 1000 ml; Site: right antecubital; em 20:25 Follow up: IV Status: Completed infusion; IV Intake: 1000ml rv 18:26 Drug: morphine 4 mg Route: IVP; Site: right antecubital; em 20:00 Follow up: Response: Pain is unchanged, physician notified; RASS: Alert and Calm (0) rv 20:10 Drug: Dilaudid 1 mg {Note: rass 0.} Route: IVP; Site: right antecubital; rr5 21:24 Follow up: Pain 3/10 Adult; Response: No adverse reaction; Marked relief of symptoms; rv Pain is decreased; RASS: Drowsy (-1) Intake: 20:25 IV: 1000ml; Total: 1000ml. rv Outcome: 19:56 Decision to Hospitalize by Provider. jr8 22:21 Admitted to Med/surg accompanied by tech, via wheelchair, room 230, with chart, Report rv called to eden avina 22:21 Condition: good 22:21 Instructed on the need for admit, Demonstrated understanding of instructions. 22:22 Patient left the ED. rv Signatures: Eva Costello, RN ARACELI sv Oz Rios, RN RN Isaías Story PA PA jr8 Umang Olivas RN RN rv Adan Resendiz RN RN rr5 Brenda Cosme 1 Eric Watson fj1 Corrections: (The following items were deleted from the chart) 18:08 18:05 Acuity: HANY 3 sv sv 18:09 18:06 Resp 28bpm; Pulse Ox 100%; Temp 98.8F; 99.79 kg; Height 5 ft. 8 in.; BMI: 33.4; svsv
--- NOTE | 2019-07-30 19:58 | EDPHYS ---
Physician Documentation [facility] Name: Javier Rutherford Age: 44 yrs Sex: Male : 1975 Arrival Date: 07/30/2019 Time: 17:34 Bed 8 Private MD: ED Physician Kolton Licona HPI: 07/29 19:54 This 44 yrs old Male presents to ER via Ambulatory with complaints of jr8 Abdominal Pain. 19:54 The patient presents with abdominal pain in the upper abdomen. Onset: The jr8 symptoms/episode began/occurred acutely, today. The symptoms do not radiate. Associated signs and symptoms: Pertinent positives: nausea. The symptoms are described as stabbing. Modifying factors: The symptoms are alleviated by nothing, the symptoms are aggravated by nothing. Severity of pain: At its worst the pain was moderate in the emergency department the pain is unchanged. The patient has experienced similar episodes in the past, a few times. The patient has not recently seen a physician. Historical: - Allergies: 18:06 No Known Allergies; sv - PMHx: 18:06 Diabetes - NIDDM; fatty liver; Hyperlipidemia; Pancreatitis; sv - PSHx: 18:06 Cholecystectomy; Hernia repair; sv - Immunization history:: Adult Immunizations up to date. - Social history:: Smoking status: unknown. ROS: 19:54 Eyes: Negative for injury, pain, redness, and discharge, ENT: Negative for injury, jr8 pain, and discharge, Neck: Negative for injury, pain, and swelling, Cardiovascular: Negative for chest pain, palpitations, and edema, Respiratory: Negative for shortness of breath, cough, wheezing, and pleuritic chest pain, Back: Negative for injury and pain, MS/Extremity: Negative for injury and deformity, Skin: Negative for injury, rash, and discoloration, Neuro: Negative for headache, weakness, numbness, tingling, and seizure. 19:54 Abdomen/GI: Positive for abdominal pain, nausea, Negative for vomiting, diarrhea, constipation, abdominal cramps, abdominal distension. Exam: 19:54 Eyes: Pupils equal round and reactive to light, extra-ocular motions intact. Lids and jr8 lashes normal. Conjunctiva and sclera are non-icteric and not injected. Cornea within normal limits. Periorbital areas with no swelling, redness, or edema. ENT: Nares patent. No nasal discharge, no septal abnormalities noted. Tympanic membranes are normal and external auditory canals are clear. Oropharynx with no redness, swelling, or masses, exudates, or evidence of obstruction, uvula midline. Mucous membranes moist. Neck: Trachea midline, no thyromegaly or masses palpated, and no cervical lymphadenopathy. Supple, full range of motion without nuchal rigidity, or vertebral point tenderness. No Meningismus. Cardiovascular: Regular rate and rhythm with a normal S1 and S2. No gallops, murmurs, or rubs. Normal PMI, no JVD. No pulse deficits. Respiratory: Lungs have equal breath sounds bilaterally, clear to auscultation and percussion. No rales, rhonchi or wheezes noted. No increased work of breathing, no retractions or nasal flaring. Back: No spinal tenderness. No costovertebral tenderness. Full range of motion. Skin: Warm, dry with normal turgor. Normal color with no rashes, no lesions, and no evidence of cellulitis. MS/ Extremity: Pulses equal, no cyanosis. Neurovascular intact. Full, normal range of motion. Neuro: Awake and alert, GCS 15, oriented to person, place, time, and situation. Cranial nerves II-XII grossly intact. Motor strength 5/5 in all extremities. Sensory grossly intact. Cerebellar exam normal. Normal gait. 19:54 Abdomen/GI: Inspection: obese Bowel sounds: active, all quadrants, Palpation: soft, in all quadrants, moderate abdominal tenderness, in the mid upper abdomen, mass, is not appreciated, rebound tenderness, is not appreciated, voluntary guarding, is not appreciated, involuntary guarding, is not appreciated, no appreciated organomegaly, Indicators: McBurney's point is not tender, Alfaro's sign is negative, Rovsing's sign is negative, Liver: tenderness, is not appreciated. Vital Signs: 18:06 BP 144 / 90; Pulse 80; Resp 28; Temp 98.8; Pulse Ox 100% ; Weight 99.79 kg; Height 5 sv ft. 8 in. (172.72 cm); 20:05 BP 149 / 91; Pulse 85; Resp 25; Pulse Ox 99% ; Pain 10/10; rr5 21:23 BP 134 / 80; Pulse 81; Resp 18; Pulse Ox 96% on R/A; Pain 3/10; rv 21:24 Pain 3/10; rv 22:21 BP 130 / 85; Pulse 74; Resp 16; Temp 98.5; Pulse Ox 97% on R/A; Pain 3/10; rv 18:06 Body Mass Index 33.45 (99.79 kg, 172.72 cm) sv MDM: 18:32 Patient medically screened. jr8 19:54 Data reviewed: vital signs, nurses notes, old medical records, lab test result(s). Data jr8 interpreted: Pulse oximetry: on room air is 100 %. Interpretation: normal. Counseling: I had a detailed discussion with the patient and/or guardian regarding: the historical points, exam findings, and any diagnostic results supporting the discharge/admit diagnosis, lab results, the need for further work-up and treatment in the hospital. Physician consultation: Arpan Mckeon MD was called at 19:56, was contacted at 19:56, regarding admission, to the medical/surgical unit. consult, patient's condition, and will see patient. 07/29 18:13 Order name: Basic Metabolic Panel; Complete Time: 19:48 [facility] 07/29 18:13 Order name: CBC with Diff; Complete Time: 19:48 [facility] 07/29 18:13 Order name: Hepatic Function; Complete Time: 19:48 [facility] 07/29 18:13 Order name: Lipase; Complete Time: 19:48 [facility] 07/29 22:02 Order name: CBC with Automated Diff [facility] 07/29 22:02 Order name: CBC with Automated Diff [facility] 07/29 22:02 Order name: Comprehensive Metabolic Panel [facility] 07/29 22:02 Order name: Comprehensive Metabolic Panel [facility] 07/29 22:02 Order name: Lipid Profile [facility] 07/29 22:02 Order name: Lipid Profile [facility] 07/29 22:02 Order name: Protime (+INR) [facility] 07/29 22:02 Order name: Protime (+INR) [facility] 07/29 22:02 Order name: PTT, Activated Partial Thromb [facility] 07/29 22:02 Order name: PTT, Activated Partial Thromb [facility] 07/29 18:13 Order name: IV Saline Lock; Complete Time: 18:25 [facility] 07/29 18:13 Order name: Labs collected and sent; Complete Time: 18:25 [facility] 07/29 22:02 Order name: CONS Pharmacy Consult [facility] 07/29 22:02 Order name: NPO [facility] 07/29 22:02 Order name: Troponin I [facility] 07/29 22:02 Order name: Troponin I [facility] 07/29 22:02 Order name: Troponin I [facility] 07/29 22:05 Order name: Lipase [facility] 07/29 22:06 Order name: Triglycerides Level ED[facility] Administered Medications: 18:24 Drug: Zofran (Ondansetron) 4 mg Route: IVP; Site: right antecubital; em 20:25 Follow up: Response: No adverse reaction rv 18:24 Drug: NS 0.9% 1000 ml Route: IV; Rate: 1000 ml; Site: right antecubital; em 20:25 Follow up: IV Status: Completed infusion; IV Intake: 1000ml rv 18:26 Drug: morphine 4 mg Route: IVP; Site: right antecubital; em 20:00 Follow up: Response: Pain is unchanged, physician notified; RASS: Alert and Calm (0) rv 20:10 Drug: Dilaudid 1 mg {Note: rass 0.} Route: IVP; Site: right antecubital; rr5 21:24 Follow up: Pain 3/10 Adult; Response: No adverse reaction; Marked relief of symptoms; rv Pain is decreased; RASS: Drowsy (-1) Disposition: 07/30 19:42 Co-signature as Attending Physician, Kolton Licona MD. 7 Disposition: 07/30/19 19:56 Hospitalization ordered by Arpan Mckeon for Inpatient Admission. Preliminary diagnosis is Acute pancreatitis. - Bed requested for Telemetry/MedSurg (Inpatient). - Status is Inpatient Admission. rv - Condition is Stable. - Problem is new. - Symptoms have improved. Signatures: Dispatcher [employer] [facility] Eva Costello RN Deborah Min RN ARACELI Oz Rios RN RN em Isaías Blackburn PA PA jr8 Vicente, Ronaldo, RN RN rv Adan Resendiz RN RN rr5 Kolton Licona MD MD 7 Corrections: (The following items were deleted from the chart) 07/29 22:02 19:56 Hospitalization Ordered by Arpan Mckeon MD for Inpatient Admission. Preliminary mw diagnosis is Acute pancreatitis. Bed requested for Telemetry/MedSurg (Inpatient). Status is Inpatient Admission. Condition is Stable. Problem is new. Symptoms have improved. jr8 22:22 22:02 07/30/2019 19:56 Hospitalization Ordered by Arpan Mckeon MD for Inpatient rv Admission. Preliminary diagnosis is Acute pancreatitis. Bed requested for Telemetry/MedSurg (Inpatient). Status is Inpatient Admission. Condition is Stable. Problem is new. Symptoms have improved. mw
[2019-07-30] MEDS ORDERED: HYDROMORPHONE HCL 1 MG/ML INJ ONE (20:08)
[2019-07-30] MEDS ORDERED: MORPHINE 4 MG/ML SYR IV PRN (21:56)
[2019-07-30] MEDS ORDERED: ACETAMINOPHEN 500 MG TAB PO PRN (21:56)
[2019-07-30] MEDS: gemfibroziL 600 MG TAB PO SCH (23:00)
[2019-07-30] MEDS ORDERED: HYDROMORPHONE HCL 0.5 MG/0.5 ML INJ IV PRN (23:35)
[2019-07-30] MEDS: NA CHLORIDE 0.9% 1,000 ML IV SCH (23:51)
[2019-07-31] MEDS: ONDANSETRON 4 MG/2 ML VIAL IV PRN ×4 (00:10→21:34)
[2019-07-31 00:37] LABS: Lipase 938 U/L (73-393); Troponin I < 0.02 ng/mL (0.0-0.045)
[2019-07-31 00:53] LABS: LDL, Direct 84 mg/dL (100-129)
[2019-07-31] MEDS ORDERED: HYDROMORPHONE HCL 1 MG/ML INJ IV ONE ×2 (03:34→05:47)
[2019-07-31] MEDS ORDERED: D50W 25 GM/50 ML SYRINGE/VIAL IV PRN (03:35)
[2019-07-31] MEDS ORDERED: GLUCAGON 1 MG/VIAL IM PRN (03:35)
[2019-07-31] MEDS ORDERED: D50W 25 GM/50 ML SYRINGE/VIAL IV ONE (03:35)
[2019-07-31] MEDS ORDERED: NA CHLORIDE 0.9% 500 ML IV ONE ×2 (03:35→05:30)
[2019-07-31] MEDS ORDERED: INSULIN -REGULAR HUMAN 50 UNIT/0.5 ML ML IV ONE (03:36)
[2019-07-31] MEDS: gemfibroziL 600 MG TAB PO SCH ×2 (04:08→07:54)
[2019-07-31] MEDS: DOCOSAHEXANOIC AC/EPA 1000 MG PO SCH ×2 (04:10→09:00)
[2019-07-31] MEDS ORDERED: FENTANYL CITR 100 MCG/2 ML IV ONE ×3 (04:25→14:00)
[2019-07-31] MEDS: NA CHLORIDE 0.9% 1,000 ML IV SCH ×2 (04:37→12:09)
[2019-07-31 07:04] LABS: MPV 10.3 fL (7.6-11.3); RBC Red Blood Cell Count 4.64 M/uL (4.33-5.43)
[2019-07-31 08:11] LABS: HDL Cholesterol 33 mg/dL (40-60)
[2019-07-31 08:25] LABS: LDL, Direct 98 mg/dL (100-129)
--- NOTE | 2019-07-31 09:11 | P.HP ---
Certification for Inpatient Patient admitted to: Inpatient With expected LOS: >2 Midnights Patient will require the following post-hospital care: None Practitioner: I am a practitioner with admitting privileges, knowledge of patient current condition, hospital course, and medical plan of care. Services: Services provided to patient in accordance with Admission requirements found in Title 42 Section 412.3 of the Code of Federal Regulations Patient History Date of Service: 07/30/19 Reason for admission: ACUTE PANCREATITIS History of Present Illness: PATIENT IS A 44-YEAR-OLD GENTLEMAN WHO COMES TO HOSPITAL WITH ABDOMINAL PAIN. PATIENT LIPASE WAS ELEVATED. PATIENT HAS BEEN HERE BEFORE AND HAS HYPERTRIGLYCERIDEMIA. HIS TRIGLYCERIDE LEVELS WERE NOT CHECKED IN THE EMERGENCY ROOM. WILL REPEAT LABS IN A FEW HR AND CHECK TRIGLYCERIDE LEVELS. CONTINUE WITH IV HYDRATION AND RESUME HIS LOPID AND HIS FISH OIL CAPSULES. CONTINUE WITH AGGRESSIVE IV HYDRATION ALONG WITH PAIN CONTROL. CONTINUE WITH NPO STATUS. Allergies No Known Allergies Allergy (Verified 07/30/19 22:55) Home Medications: Insulin Degludec [Tresiba Flextouch U-100] 30 units SQ DAILY 03/29/18 Metformin HCl [Glucophage] 1,000 mg PO BIDWM 03/29/18 Pantoprazole Sodium [Protonix] 20 mg PO DAILY 03/29/18 Docosahexanoic AC/Epa [Fish Oil 1,000 MG*] 2,000 mg PO BID #120 cap 02/10/19 Atorvastatin Calcium 40 mg PO BEDTIME #40 tablet 06/04/19 Codeine/APAP [Tylenol #3*] 1 tab PO Q6HP PRN #30 tab 06/04/19 Fenofibrate,Micronized [Fenofibrate] 200 mg PO BEDTIME #30 capsule 06/04/19 Metoclopramide HCl [Reglan] 10 mg PO SEECOM 07/30/19 - Past Medical/Surgical History Has patient received pneumonia vaccine in the past: No Diabetic: Yes -: pancreatitis -: hyperlipidemia -: IDDM -: pancreatic mass -: fatty liver -: Cholecystectomy -: Hernia sx -: vasectomy - Family History Sister Medical History: Diabetes, Cancer Mother Medical History: Diabetes Brother Medical History: GI disease, Diabetes Notes: Pancreatitis - Social History Smoking Status: Former smoker Alcohol use: Yes CD- Drugs: No Caffeine use: Yes Place of Residence: Home Review of Systems 10-point ROS is otherwise unremarkable Physical Examination - Vital Signs Temperature: 97.9 F Blood Pressure: 173/92 Pulse: 89 Respirations: 18 Pulse Ox (%): 90 - Physical Exam General: Alert, In no apparent distress, Oriented x3 HEENT: Atraumatic, PERRLA, Mucous membr. moist/pink, EOMI, Sclerae nonicteric Neck: Supple, 2+ carotid pulse no bruit, No LAD, Without JVD or thyroid abnormality Respiratory: Clear to auscultation bilaterally, Normal air movement Cardiovascular: Regular rate/rhythm, Normal S1 S2, No murmurs Gastrointestinal: Normal bowel sounds, Hypoactive, Soft and benign, Non- distended, No guarding, Tenderness, Rebound Musculoskeletal: No clubbing, No swelling, No tenderness Integumentary: No rashes Neurological: Normal gait, Normal speech, Normal strength at 5/5 x4 extr, Normal tone, Sensation intact, Cranial nerves 3-12 intact, Normal affect Lymphatics: No axilla or inguinal lymphadenopathy - Studies Laboratory Data (last 24 hrs) 07/30/19 18:23: WBC 7.7, Hgb 15.3, Hct 41.4, Plt Count 251 07/30/19 18:23: Sodium 138, Potassium 4.0, BUN 16, Creatinine 1.00, Glucose 398 H, Total Bilirubin 0.4, AST 22, ALT 49, Alkaline Phosphatase 77, Lipase 1261 H Assessment & Plan - Problems (Diagnosis) (1) Acute pancreatitis Current Visit: Yes Status: Acute (2) Diabetes mellitus Onset Date: 11/14/16 Current Visit: No Status: Chronic Qualifiers: (3) Hypertriglyceridemia Onset Date: 11/14/16 Current Visit: No Status: Chronic (4) Obesity (BMI 30-39.9) Onset Date: 11/14/16 Current Visit: No Status: Chronic - Plan PLAN: 1. CONTINUE WITH IV HYDRATION 2. PAIN CONTROL 3. NPO 4. LOPID AND FISH OIL 5. CHECK TRIGLYCERIDE LEVEL AND REPEAT LIPASE LEVEL 6. CONTINUE WITH INSULIN FOR STRICT BLOOD SUGAR CONTROL AND ASSIST WITH HELPING GETTING TRIGLYCERIDE DOWN. IF TRIGLYCERIDE LEVELS ARE SIGNIFICANTLY ELEVATED PATIENT MAY BENEFIT FROM INSULIN DRIP 7. GI AND DVT PROPHYLAXIS Discharge Plan: Home Plan to discharge in: Greater than 2 days - Advance Directives Does patient have a Living Will: No Does patient have a Durable POA for Healthcare: No - Code Status/Comfort Care Code Status Assessed: Yes Code Status: Full Code Critical Care: No Time Spent Managing PTS Care (In Minutes): 45
[2019-07-31 09:24] LABS: ALT/SGPT 43 U/L (12-78); Albumin 3.6 g/dL (3.4-5.0); Alkaline Phosphatase 64 U/L (45-117); BUN Blood Urea Nitrogen 10 mg/dL (7-18); Bicarbonate 19 mmol/L (21-32); Bilirubin Total 0.8 mg/dL (0.2-1.0); Glucose Level 239 mg/dL (74-106); Lipase 10645 U/L (73-393); Protein, Total 7.6 g/dL (6.4-8.2); Sodium Level 141 mmol/L (136-145); Troponin I < 0.02 ng/mL (0.0-0.045)
[2019-07-31 09:27] LABS: Platelet Estimate ADEQ
[2019-07-31 09:28] LABS: Blood Morphology Comment NOT SEEN (NOT SEEN)
[2019-07-31] MEDS: HYDROMORPHONE HCL 0.5 MG/0.5 ML INJ IV PRN ×2 (09:32→13:48)
[2019-07-31 09:35] LABS: AST/SGOT 36 U/L (15-37); Potassium 4.1 mmol/L (3.5-5.1)
[2019-07-31] MEDS ORDERED: ACETAMINOPHEN 650MG/RECT SUPP PR PRN (10:54)
[2019-07-31] MEDS ORDERED: SODIUM CHLORIDE 0.9% 10ML INJ IV PRN (10:54)
[2019-07-31] MEDS ORDERED: INSULIN -REGULAR HUMAN 100 UNIT in NA CHLORIDE 0.9% 100 ML IV SCH (10:54)
--- NOTE | 2019-07-31 11:41 | P.PN ---
Subjective Date of Service: 07/31/19 Primary Care Provider: DAVEY gay Chief Complaint: ACUTE PANCREATITIS Physical Examination - Vital Signs Temperature: 97.9 F Blood Pressure: 173/92 Pulse: 89 Respirations: 18 Pulse Ox (%): 96 - Studies Laboratory Data (last 24 hrs) 07/30/19 18:23: WBC 7.7, Hgb 15.3, Hct 41.4, Plt Count 251 07/30/19 18:23: Sodium 138, Potassium 4.0, BUN 16, Creatinine 1.00, Glucose 398 H, Total Bilirubin 0.4, AST 22, ALT 49, Alkaline Phosphatase 77, Lipase 1261 H Assessment & Plan Discharge Plan: Home Plan to discharge in: Greater than 2 days Physician Review Additional Text: Impression: Epigastric abdominal pain, nausea and vomiting secondary to acute, recurrent hypertriglyceridemia pancreatitis Diabetes mellitus type 2 with hyperglycemia Hypertension GERD Mixed Hyperlipidemia Chronic pain Obesity, BMI 32.3 Plan: Epigastric abdominal pain, nausea and vomiting secondary to acute, recurrent hypertriglyceridemia pancreatitis: Patient transferred to [facility] due to elevated triglycerides above 4000. Will start IV insulin drip to maintain blood sugar between 100-200. Continue aggressive IV fluid hydration. Will adjust IV fluids and insulin drip closely. Will monitor triglycerides every 12 hr. Goal triglyceride level less than 500. Will provide IV pain medication, provide IV nausea medication, and will continue to monitor closely. Await results from CT scan. Case discussed with patient and . Diabetes mellitus type 2 with hyperglycemia: Patient will be on an insulin drip to help with the pancreatitis related to hypertriglyceridemia. Will monitor Accu-Cheks every 1 hr. Hypertension: GERD: Mixed Hyperlipidemia: Chronic pain: Obesity, BMI 32.3: Time Spent Managing Pts Care (In Minutes): 55
[2019-07-31] MEDS ORDERED: LORazepam 2 MG/ML VIAL IV PRN (11:43)
--- NOTE | 2019-07-31 12:01 | RAD REPORT ---
EXAM DESCRIPTION: CTAbdomen Pelvis W Contrast - 07/31/2019 7:41 am CLINICAL HISTORY: Abdominal pain. Acute pancreatitis COMPARISON: Abdomen Pelvis W Contrast dated 06/01/2019; Abdomen Pelvis W Contrast dated 9; Abdomen Pelvis W Contrast dated 07/08/2017; Abdomen Pelvis W Contrast dated 09/05/2016 TECHNIQUE: Biphasic CT imaging of the abdomen and pelvis was performed with 100 ml non-ionic IV cont rast. All CT scans are performed using dose optimization technique as appropriate and may include automated exposure control or mA/KV adjustment according to patient size. FINDINGS: Linear atelectasis is present in both lung bases, greater on the left. Moderate diffuse fatty liver. Cholecystectomy clips. The spleen, adrenal glands and kidneys are withi n limits. Moderate peripancreatic inflammatory changes are present compatible with moderate pancreatitis. There is narrowing of the portal venous system without thrombosis. No pancreatic necrosis or evidence of p seudocyst. No bowel obstruction, free air, free fluid or abscess. The appendix is normal. No evidence of signi ficant lymphadenopathy. No suspicious bony findings. IMPRESSION: Moderately severe acute pancreatitis as described.
[2019-07-31] MEDS: MORPHINE 2 MG/ML SYR IV PRN ×2 (12:05→18:24)
[2019-07-31] MEDS: PROMETHAZINE INJ 25 MG/ML AMP IV PRN ×2 (12:07→18:21)
--- NOTE | 2019-07-31 12:54 | P.PN ---
Subjective Date of Service: 07/31/19 Primary Care Provider: [facility] Chief Complaint: ACUTE PANCREATITIS Subjective: Other (Still having nausea and vomiting. Abdominal pain still present Patient has tachycardia while getting morphine and Dilaudid) Review of Systems 10-point ROS is otherwise unremarkable Physical Examination - Vital Signs Temperature: 97.9 F Blood Pressure: 173/92 Pulse: 89 Respirations: 33 Pulse Ox (%): 97 - Physical Exam General: Alert, Oriented x3 HEENT: Atraumatic, Normocephalic Neck: Supple, 2+ carotid pulse no bruit Respiratory: Clear to auscultation bilaterally, Normal air movement Cardiovascular: No edema, Normal S1 S2, Other (Tachycardia, monitor shows sinus tachy) Capillary refill: <2 Seconds Gastrointestinal: Other (Soft, tender to touch in the epigastric region, bowel sounds sluggish, ), Tenderness Musculoskeletal: No clubbing, No swelling Integumentary: No rashes Neurological: Normal speech, Normal strength at 5/5 x4 extr Lymphatics: No axilla or inguinal lymphadenopathy Urinary: Other (No bladder distention) Rectal: Deferred - Studies Laboratory Data (last 24 hrs) 07/30/19 18:23: WBC 7.7, Hgb 15.3, Hct 41.4, Plt Count 251 07/30/19 18:23: Sodium 138, Potassium 4.0, BUN 16, Creatinine 1.00, Glucose 398 H, Total Bilirubin 0.4, AST 22, ALT 49, Alkaline Phosphatase 77, Lipase 1261 H Abnormal Lab Results 07/30/19 07/30/19 18:23 18:23 WBC 7.7 RBC 5.05 Hgb 15.3 Hct 41.4 MCV 81.9 MCH 30.2 MCHC 36.9 H RDW 14.0 Plt Count 251 MPV 10.2 Neutrophils % 69.0 Lymphocytes % 23.7 Monocytes % 5.0 Eosinophils % 0.8 Basophils % 1.5 H Absolute Neutrophils 5.3 Absolute Lymphocytes 1.8 Absolute Monocytes 0.4 Absolute Eosinophils 0.1 Absolute Basophils 0.1 Sodium 138 Potassium 4.0 Chloride 105 Carbon Dioxide 22 BUN 16 Creatinine 1.00 Estimated GFR 81 L Glucose 398 H Calcium 9.3 Total Bilirubin 0.4 Direct Bilirubin < 0.1 AST 22 ALT 49 Alkaline Phosphatase 77 Serum Total Protein 8.1 Albumin 4.0 Globulin 4.1 H Albumin/Globulin Ratio 1.0 L Lipase 1261 H Assessment & Plan - Problems (Diagnosis) (1) Acute pancreatitis Onset Date: 11/14/16 Current Visit: No Status: Acute Qualifiers: Pancreatitis type: unspecified pancreatitis type Acute pancreatitis complication: no infection or necrosis Qualified Code(s): K85.90 - Acute pa ncreatitis without necrosis or infection, unspecified (2) hypertriglyceridemia induce pancreatitis Onset Date: 07/08/17 Current Visit: No Status: Acute (3) Diabetes mellitus Onset Date: 11/14/16 Current Visit: No Status: Chronic Qualifiers: Diabetes mellitus complication status: with hyperglycemia (4) Fatty liver Onset Date: 11/14/16 Current Visit: No Status: Chronic (5) GERD (gastroesophageal reflux disease) Current Visit: No Status: Chronic Qualifiers: Esophagitis presence: without esophagitis Qualified Code(s): K21.9 - Gastro-esophageal reflux disease without esophagitis (6) Hypertriglyceridemia Onset Date: 11/14/16 Current Visit: No Status: Chronic (7) Obesity (BMI 30-39.9) Onset Date: 11/14/16 Current Visit: No Status: Chronic Physician Review Additional Text: Impression: Epigastric abdominal pain, nausea and vomiting secondary to acute, recurrent hypertriglyceridemia pancreatitis Diabetes mellitus type 2 with hyperglycemia Hypertension GERD Mixed Hyperlipidemia Chronic pain Obesity, BMI 32.3 Plan: Epigastric abdominal pain, nausea and vomiting secondary to acute, recurrent hypertriglyceridemia pancreatitis: Patient is admitted to the ICU Start on aggressive hydration NPO PPI Pain control Anti nausea medication Insulin drip monitor triglyceride level CT showed moderately severe acute pancreatitis Monitor closely under telemetry Lipase level trended Tachycardia Start on aggressive hydration Monitor closely Sinus tachycardia noted up to 150 per min Will get a CBC CMP lactic acid levels Was start on IV antibiotic to prevent secondary infection if lactic acid is high Diabetes mellitus type 2 with hyperglycemia: insulin drip to help with the pancreatitis related to hypertriglyceridemia. Will monitor Accu-Cheks every 1 hr. Hypertension: Hydralazine p.r.n., but metoprolol p.r.n. GERD: PPI Mixed Hyperlipidemia: Monitor lipid panel Chronic pain: Obesity, BMI 32.3: Advised lifestyle modification Time Spent Managing Pts Care (In Minutes): 40
[2019-07-31] MEDS ORDERED: DIPHENHYDRAMINE 50 MG/ML VIAL IV ONE (14:00)
[2019-07-31] MEDS ORDERED: METOPROLOL TARTRATE 5 MG/5 ML INJ IV STA (14:00)
[2019-07-31] MEDS: Ringers Lactate 1,000 ML IV ONE (15:33)
[2019-07-31] MEDS: Ringers Lactate 1,000 ML IV SCH ×2 (16:00→21:51)
--- NOTE | 2019-07-31 16:57 | RAD REPORT ---
EXAM DESCRIPTION: RAD - Chest Single View - 07/31/2019 4:49 pm CLINICAL HISTORY: Tachycardia Chest pain. COMPARISON: Abdomen 1 View (KUB) dated 02/07/2019; Chest Pa And Lat (2 Views) dated 09/02/2017; CHEST SINGLE VIEW dated 04/27/2014; CHEST SINGLE VIEW dated 11/06/2013 FINDINGS: Portable technique limits examination quality. The lungs are grossly clear. The heart is normal in size. No displaced fractures. IMPRESSION: No acute intrathoracic process suspected.
[2019-07-31] MEDS ORDERED: ENOXAPARIN 40 MG/0.4 ML SQ SCH (17:00)
[2019-07-31 17:16] LABS: Basophils % 0.6 % (0-1.3); Lymphocytes % 18.6 % (15.3-44.8); MPV 10.6 fL (7.6-11.3); RBC Red Blood Cell Count 5.76 M/uL (4.33-5.43)
[2019-07-31] MEDS ORDERED: Meropenem 1000 MG/VIAL IV SCH (17:16)
[2019-07-31] MEDS: HYDROMORPHONE HCL 1 MG/ML INJ IV PRN ×2 (17:45→21:34)
[2019-07-31] MEDS: METOPROLOL TARTRATE 5 MG/5 ML INJ IV PRN (17:50)
[2019-07-31 19:39] LABS: ALT/SGPT 185 U/L (12-78); Albumin 3.1 g/dL (3.4-5.0); Alkaline Phosphatase 113 U/L (45-117); BUN Blood Urea Nitrogen 11 mg/dL (7-18); Bicarbonate 17 mmol/L (21-32); Bilirubin Total 4.5 mg/dL (0.2-1.0); Glucose Level 376 mg/dL (74-106); Protein, Total 7.5 g/dL (6.4-8.2); Sodium Level 138 mmol/L (136-145); Troponin I < 0.02 ng/mL (0.0-0.045)
[2019-07-31 19:42] LABS: Potassium 5.2 mmol/L (3.5-5.1)
[2019-07-31 19:43] LABS: AST/SGOT 240 U/L (15-37)
[2019-07-31] MEDS ORDERED: Ringers Lactate 1,000 ML IV ONE (19:45)
[2019-07-31] MEDS: Meropenem 1,000 MG in NA CHLORIDE 0.9% 100 ML IV SCH (19:48)
[2019-07-31] MEDS: PANTOPRAZOLE 40 MG INJ IVP SCH (21:33)
[2019-07-31 23:24] LABS: LDL, Direct 125 mg/dL (100-129)
[2019-08-01] MEDS: PROMETHAZINE INJ 25 MG/ML AMP IV PRN ×2 (00:35→06:30)
[2019-08-01] MEDS: MORPHINE 2 MG/ML SYR IV PRN ×3 (00:35→13:24)
[2019-08-01] MEDS: Ringers Lactate 1,000 ML IV SCH ×7 (01:51→20:00)
[2019-08-01] MEDS: Meropenem 1,000 MG in NA CHLORIDE 0.9% 100 ML IV SCH ×2 (01:51→08:47)
[2019-08-01] MEDS: HYDROMORPHONE HCL 1 MG/ML INJ IV PRN ×2 (03:04→08:43)
[2019-08-01] MEDS: ONDANSETRON 4 MG/2 ML VIAL IV PRN (03:05)
[2019-08-01 05:12] LABS: Absolute Lymphocytes (CBC) 0.7 K/uL (0.7-4.9); Basophils % 0.7 % (0-1.3); Lymphocytes % 17.2 % (15.3-44.8); MPV 10.8 fL (7.6-11.3); RBC Red Blood Cell Count 5.79 M/uL (4.33-5.43)
[2019-08-01] MEDS: gemfibroziL 600 MG TAB PO SCH ×3 (06:00→20:41)
[2019-08-01] MEDS: DOCOSAHEXANOIC AC/EPA 1000 MG PO SCH ×3 (06:00→20:41)
[2019-08-01] MEDS ORDERED: INSULIN -REGULAR HUMAN 100 UNIT in NA CHLORIDE 0.9% 100 ML IV SCH (07:52)
[2019-08-01] MEDS: PANTOPRAZOLE 40 MG INJ IVP SCH (08:42)
[2019-08-01] MEDS: METOPROLOL TARTRATE 5 MG/5 ML INJ IV PRN (08:42)
[2019-08-01] MEDS ORDERED: THIAMINE 200 MG/2 ML INJ IVP SCH (09:00)
[2019-08-01] MEDS: Ringers Lactate 1,000 ML IV ONE (11:24)
[2019-08-01] MEDS ORDERED: HYDROMORPHONE HCL 2 MG/ML inj IV PRN (11:36)
[2019-08-01 11:49] LABS: Albumin 2.5 g/dL (3.4-5.0); Bilirubin Total 2.7 mg/dL (0.2-1.0)
[2019-08-01 11:50] LABS: Potassium 4.3 mmol/L (3.5-5.1)
[2019-08-01 11:51] LABS: Magnesium 1.8 mg/dL (1.8-2.4)
[2019-08-01] MEDS ORDERED: NALOXONE 0.4 MG/ML VIAL IV PRN (11:52)
[2019-08-01] MEDS: HYDROMORPHONE/PCA 10 MG/50 ML SYR IV PRN (14:50)
[2019-08-01] MEDS: ENOXAPARIN 30 MG/0.3 ML SQ SCH ×2 (16:00→21:00)
--- NOTE | 2019-08-01 16:19 | CON ---
Date of Consultation: 08/01/2019 Brief History Of Present Illness: Patient is a 44-year-old male with a past medical history of multiple episodes of pancreatitis due to hypertriglyceridemia, who presents with a 1-2 day histor y of worsening abdominal pain similar to episodes before in the past. I asked the patient how many t imes he has had pancreatitis in the past, he says too numerous to count. His last episode was about 1 month ago. He denies any alcohol usage and has been noncompliant with managing his hypertriglyceri demia. He comes in with similar episodes of epigastric abdominal pain spreading to his entire abdome n, very severe in intensity, associated with some nausea, vomiting, fever, chills. No change in his bowel or bladder habits, bloating, distention, diaphoresis. He denies sick contacts, recent travel, or new food exposures. Past Medical History: Significant for multiple episodes of acute and chronic pancreatitis, hyperlipi demia, diabetes, pancreatic enlargement, hepatic steatosis. Past Surgical History: Includes cholecystectomy, right inguinal hernia surgery, and vasectomy. Home Medications: Include , Glucophage, Protonix, fish oil, atorvastatin, Tylenol No. 3, f enofibrate, and Reglan. Allergies: NO KNOWN DRUG ALLERGIES. Habits: He denies smoking, alcohol, or recreational drug use, but did have smoking in his past by re port. Review of Systems: Ten-point review of systems other than HPI, denies. Physical Examination: Vitals: On examination his BMI is 32.4. His blood pressure was 119/76, heart rate was 124, respirat ory rate 22, temperature 99.4. General: He is awake, alert, oriented. Psychiatric: He is appropriate and conversive. He appears in mild discomfort during our examination . HEENT: Otherwise normocephalic. His sclerae are anicteric. His mucous membranes are moist. His or opharynx clear. Neck: Supple. No JVD. Chest: Normal expansion and excursion. Cardiovascular: Tachycardic. Abdomen: Distended and global tenderness, worse in the epigastrium. There is no Goyal Camacho or Cull en signs. Well-healed surgical scars are evident from previous surgery. Extremities: No clubbing, cyanosis, or edema. Skin: Warm and dry. Laboratory Data: Reveals a white blood cell count of 4.3, hemoglobin of 16.5, hematocrit 47.0, plate let count is 200. His neutrophils were 73.3. Sodium 141, potassium 4.3, chloride 111, carbon dioxid e 20, BUN 18, creatinine 1.15. His glucose was 231, it was almost 400 on admission. His hemoglobin A1c is 11.2. Lactic acid was 2.4, now 1.9. His total bilirubin was 2 point is 2.7, AST 83, ALT 113. His alkaline phosphatase 100. His triglycerides were greater than 4000 on multiple checks on the 04 11 and . On admission it was 3926. His triglycerides are currently 419. His LDL cholesterol w as 125, now it is 25. Lipase was 12,296 on admission, now 3344. He had imaging performed which incl uded a CT abdomen and pelvis on 07/30 yesterday, which is officially read as moderate peripancreatic inflammatory changes at present compatible with moderate pancreatitis. There is narrowing of the por nedra venous system without thrombosis. No pancreatic necrosis or evidence of pseudocyst. No bowel ob struction, free air or fluid or abscess. The appendix is normal. No significant lymphadenopathy. M oderate diffuse fatty liver. are seen. The spleen, adrenal glands and kidneys are within normal limits. He has moderately severe acute pancreatitis as described. Assessment And Plan: A 44-year-old male with multiple episodes of recurrent acute and chronic pancre atitis due to hypertriglyceridemia. 1.IV fluid hydration with judicious fluid management and strict I's and O's. Continue volume resusc itation. 2.No indication for antibiotic at this time. However, we will follow closely for evidence of worsen ing pain create pancreatic pathology and could consider antibiotics should he show evidence of infect ion. 3.Continue ICU management. 4.Serial exams. 5.NG tube decompression. 6.Close fluid management. 7.Monitor for signs of abdominal hypertension can consider bladder pressure monitoring if patient sh ows signs of abdominal hypertension due to fluid resuscitation. 8.Continue management of hypertriglyceridemia and medical management of his diabetes and triglycerid emia per medical team. 9.Continue anticoagulation with Lovenox. 10.Consider MRCP to rule out a possible concomitant pancreas divisum. It is difficult to assess thi s based on the imaging at this point. The patient has had multiple episodes of pancreatitis prior in the past, likely due to his hypertriglyceridemia, however, patient has never had any formal workup. He states during his episodes of resolved pancreatitis. I have explained the risks, benefits, and a lternatives the above stated plan the patient agrees to proceed as indicated. MELANIA/OWEN Voice ID: [id number] Report ID: [id number]
--- NOTE | 2019-08-01 17:10 | P.PN ---
Subjective Date of Service: 08/01/19 Primary Care Provider: [facility] Chief Complaint: ACUTE PANCREATITIS Subjective: Improving (Patient is improving although his significant abdominal pain liver function tests worse) Review of Systems General: Weakness Gastrointestinal: Nausea, Abdominal Pain Physical Examination - Vital Signs Temperature: 99.4 F Blood Pressure: 119/76 Pulse: 124 Respirations: 22 Pulse Ox (%): 94 - Physical Exam General: Alert, Oriented x3, Moderate distress Neck: Supple Respiratory: Clear to auscultation bilaterally Cardiovascular: No edema, Regular rate/rhythm Gastrointestinal: Hypoactive, Tenderness, Rebound (Marked tenderness in rebound) Assessment & Plan - Problems (Diagnosis) (1) Acute pancreatitis Onset Date: 03/21/14 Current Visit: No Status: Acute Plan: Patient is 44 years of age admitted with pancreatitis from hypertriglyceridemia patient's triglycerides have decreased significantly on an insulin drip liver function tests worse DT scan shows severe acute pancreatitis is a recurrent attack office pancreatitis from a hyperlipidemia Qualifiers: Pancreatitis type: other Acute pancreatitis complication: no infection or necrosis Qualified Code(s): K85.80 - Other acute pancreatitis without necrosis or infection (2) Hyperlipidemia Current Visit: Yes Status: Acute Plan: Patient has severe hyperlipidemia causing pancreatitis in gemfibrozil insulin drip continue with IV fluids Qualifiers: Hyperlipidemia type: pure hypertriglyceridemia Qualified Code(s): E78.1 - Pure hyperglyceridemia
[2019-08-01] MEDS: D5 0.9 NS 1,000 ML IV SCH (19:48)
[2019-08-01] MEDS ORDERED: MAGNESIUM SULFATE 1 gm IVPB 1 GM/100 ML BAG IV ONE (20:36)
[2019-08-02] MEDS: Ringers Lactate 1,000 ML IV SCH
[2019-08-02] MEDS: HYDROMORPHONE/PCA 10 MG/50 ML SYR IV PRN ×2 (00:51→21:28)
[2019-08-02] MEDS: D5 0.9 NS 1,000 ML IV SCH ×4 (02:37→23:49)
[2019-08-02 05:52] LABS: Basophils % 0.8 % (0-1.3); Hematocrit 33.2 % (39.6-49.0); Lymphocytes % 20.1 % (15.3-44.8); MPV 10.5 fL (7.6-11.3); RBC Red Blood Cell Count 4.07 M/uL (4.33-5.43)
[2019-08-02 06:21] LABS: ALT/SGPT 59 U/L (12-78); Albumin 2.1 g/dL (3.4-5.0); Alkaline Phosphatase 69 U/L (45-117); BUN Blood Urea Nitrogen 12 mg/dL (7-18); Bicarbonate 23 mmol/L (21-32); Bilirubin Total 0.8 mg/dL (0.2-1.0); Glucose Level 179 mg/dL (74-106); Lipase 1192 U/L (73-393); Protein, Total 5.9 g/dL (6.4-8.2); Sodium Level 143 mmol/L (136-145)
[2019-08-02 06:23] LABS: AST/SGOT 37 U/L (15-37); Potassium 3.5 mmol/L (3.5-5.1)
[2019-08-02 07:18] LABS: LDL, Direct 56 mg/dL (100-129)
--- NOTE | 2019-08-02 08:38 | P.PN ---
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, no more nausea, +gas, no BM.) Physical Examination - Vital Signs Temperature: 99 F Blood Pressure: 111/72 Pulse: 104 Respirations: 20 Pulse Ox (%): 95 - Physical Exam General: Alert, In no apparent distress, Cooperative Neck: Supple Respiratory: Clear to auscultation bilaterally, Normal air movement Cardiovascular: Other (tachycardia) Gastrointestinal: Other (soft, mild epigastric TTP, mild distention) Assessment And Plan - Current Problems (Diagnosis) (1) Acute pancreatitis Current Visit: Yes Status: Acute Plan: - Gen / neuro : Continue MOTOR VEHICLES INSPECTOR dilaudid today for pain control likely wean in AM, continue PRN breakthrough - CVS: remains tachycardic, continue IV fluid resuscitation, likely SIRS related - Pulm: incentive spirometry with goal of 15cc/kg based on ideal body weight, sit up as much as possible - GI : serial exams, tenderness improving, no NG placed, continue to hold for now unless emesis returns - FEN: continue IV fluid resuscitation but reduce rate as patient is volume positive by ~6-7 liters, electrolyte replacement protocol for Mg. Phos, K+. Star t ICE chips PO - ID: SIRS - no need for antibioitcs, no evidence of infected pancreatits - Prophylaxis: continue anticoagulation - patient has narrowing of Portal vein - Renal: good urine output - PT / OT consultation - Endocrine: continue insulin sliding scale - medical management for hypertriglyceridemia Physician Review Additional Text: Impression: Epigastric abdominal pain, nausea and vomiting secondary to acute, recurrent hypertriglyceridemia pancreatitis Diabetes mellitus type 2 with hyperglycemia Hypertension GERD Mixed Hyperlipidemia Chronic pain Obesity, BMI 32.3 Plan: Epigastric abdominal pain, nausea and vomiting secondary to acute, recurrent hypertriglyceridemia pancreatitis: Patient is admitted to the ICU Start on aggressive hydration NPO PPI Pain control Anti nausea medication Insulin drip monitor triglyceride level CT showed moderately severe acute pancreatitis Monitor closely under telemetry Lipase level trended Tachycardia Start on aggressive hydration Monitor closely Sinus tachycardia noted up to 150 per min Will get a CBC CMP lactic acid levels Was start on IV antibiotic to prevent secondary infection if lactic acid is high Diabetes mellitus type 2 with hyperglycemia: insulin drip to help with the pancreatitis related to hypertriglyceridemia. Will monitor Accu-Cheks every 1 hr. Hypertension: Hydralazine p.r.n., but metoprolol p.r.n. GERD: PPI Mixed Hyperlipidemia: Monitor lipid panel Chronic pain: Obesity, BMI 32.3: Advised lifestyle modification
[2019-08-02] MEDS: ENOXAPARIN 30 MG/0.3 ML SQ SCH ×2 (09:50→21:07)
--- NOTE | 2019-08-02 11:27 | RAD REPORT ---
EXAM DESCRIPTION: MRICholangiogram08/02/2019 10:44 am CLINICAL HISTORY: Abdominal pain COMPARISON: July 31, 2019 CT abdomen TECHNIQUE: Magnetic resonance cholangiogram was performed.3D MIP reconstruction performed FINDINGS: Cholecystectomy. The common hepatic duct measures 10 millimeters. The common bile duct is normal caliber. No filling defect within the biliary tree noted Moderate peripancreatic inflammatory changes. No pseudocyst Pancreatic duct is normal caliber IMPRESSION: Mild prominence of the common hepatic duct. In this patient status post cholecystectomy this may be physiologic. A stone/stricture is not seen Moderate pancreatitis
--- NOTE | 2019-08-02 13:22 | P.PN ---
Subjective Date of Service: 08/02/19 Primary Care Provider: [facility] Chief Complaint: ACUTE PANCREATITIS Subjective: No new changes, Improving Review of Systems 10-point ROS is otherwise unremarkable Physical Examination - Vital Signs Temperature: 99 F Blood Pressure: 117/69 Pulse: 100 Respirations: 17 Pulse Ox (%): 97 - Physical Exam General: Alert, In no apparent distress, Oriented x3 HEENT: Atraumatic, Normocephalic Neck: Supple, 2+ carotid pulse no bruit Respiratory: Clear to auscultation bilaterally, Normal air movement Cardiovascular: Regular rate/rhythm, Normal S1 S2 Capillary refill: <2 Seconds Gastrointestinal: Non-distended, W/out hepatosplenomegaly, Tenderness Musculoskeletal: No clubbing, No swelling Integumentary: No rashes, No breakdown Neurological: Normal speech, Normal strength at 5/5 x4 extr Lymphatics: No axilla or inguinal lymphadenopathy Rectal: Deferred - Studies Laboratory Tests 07/30/19 07/30/19 18:23 18:23 WBC 7.7 RBC 5.05 Hgb 15.3 Hct 41.4 MCV 81.9 MCH 30.2 MCHC 36.9 H RDW 14.0 Plt Count 251 MPV 10.2 Neutrophils % 69.0 Lymphocytes % 23.7 Monocytes % 5.0 Eosinophils % 0.8 Basophils % 1.5 H Absolute Neutrophils 5.3 Absolute Lymphocytes 1.8 Absolute Monocytes 0.4 Absolute Eosinophils 0.1 Absolute Basophils 0.1 Sodium 138 Potassium 4.0 Chloride 105 Carbon Dioxide 22 BUN 16 Creatinine 1.00 Estimated GFR 81 L Glucose 398 H Calcium 9.3 Total Bilirubin 0.4 Direct Bilirubin < 0.1 AST 22 ALT 49 Alkaline Phosphatase 77 Serum Total Protein 8.1 Albumin 4.0 Globulin 4.1 H Albumin/Globulin Ratio 1.0 L Lipase 1261 H Imagings Data: MRCP Mild prominence of the common hepatic duct. In this patient status post cholecystectomy this may be physiologic. A stone/stricture is not seen Moderate pancreatitis Assessment & Plan - Problems (Diagnosis) (1) Acute pancreatitis Onset Date: 11/14/16 Current Visit: No Status: Acute Qualifiers: Pancreatitis type: unspecified pancreatitis type Acute pancreatitis complication: no infection or necrosis Qualified Code(s): K85.90 - Acute pancreatitis without necrosis or infection, unspecified (2) hypertriglyceridemia induce pancreatitis Onset Date: 07/08/17 Current Visit: No Status: Acute (3) Diabetes mellitus Onset Date: 11/14/16 Current Visit: No Status: Chronic Qualifiers: Diabetes mellitus complication status: with hyperglycemia (4) Fatty liver Onset Date: 11/14/16 Current Visit: No Status: Chronic (5) GERD (gastroesophageal reflux disease) Current Visit: No Status: Chronic Qualifiers: Esophagitis presence: without esophagitis Qualified Code(s): K21.9 - Gastro-esophageal reflux disease without esophagitis (6) Hypertriglyceridemia Onset Date: 11/14/16 Current Visit: No Status: Chronic (7) Obesity (BMI 30-39.9) Onset Date: 11/14/16 Current Visit: No Status: Chronic Discharge Plan: Home Plan to discharge in: Greater than 2 days Physician Review Additional Text: Impression: Epigastric abdominal pain, nausea and vomiting secondary to acute, recurrent hypertriglyceridemia pancreatitis Diabetes mellitus type 2 with hyperglycemia Hypertension GERD Mixed Hyperlipidemia Chronic pain Obesity, BMI 32.3 Plan: Epigastric abdominal pain, nausea and vomiting secondary to acute, recurrent hypertriglyceridemia pancreatitis: Patient is admitted to the ICU on aggressive hydration Pain controlled well with pain pump Start on clear liquid diet PPI Anti nausea medication Insulin drip monitor triglyceride level CT showed moderately severe acute pancreatitis MRCP findings noted mild dilation of the hepatic duct possibly physiologic after cholecystectomy, no stones or strictures Monitor closely under telemetry Lipase level trended Added on gemfibrozil Monitor triglyceride levels Tachycardia Resolved Diabetes mellitus type 2 with hyperglycemia: insulin drip to help with the pancreatitis related to hypertriglyceridemia. Will monitor Accu-Cheks every 1 hr. Hypertension: Hydralazine p.r.n., but metoprolol p.r.n. GERD: PPI Mixed Hyperlipidemia: Monitor lipid panel Chronic pain: Obesity, BMI 32.3: Advised lifestyle modification Disposition plans : stop insulin drip if triglyceride level is better Transfer out of ICU once insulin drip is off Time Spent Managing Pts Care (In Minutes): 40
[2019-08-02 15:16] LABS: LDL, Direct 67 mg/dL (100-129)
[2019-08-02] MEDS ORDERED: GLUCAGON 1 MG/VIAL IM PRN (17:12)
[2019-08-02] MEDS ORDERED: D50W 25 GM/50 ML SYRINGE/VIAL IV PRN (17:12)
[2019-08-02] MEDS: gemfibroziL 600 MG TAB PO SCH (21:07)
[2019-08-02] MEDS: INSULIN -REGULAR HUMAN 50 UNIT/0.5 ML ML SQ SCH (21:08)
[2019-08-03 05:19] LABS: Absolute Lymphocytes (CBC) 0.8 K/uL (0.7-4.9); Basophils % 0.4 % (0-1.3); Hematocrit 29.8 % (39.6-49.0); MPV 9.9 fL (7.6-11.3); RBC Red Blood Cell Count 3.61 M/uL (4.33-5.43)
[2019-08-03] MEDS: D5 0.9 NS 1,000 ML IV SCH ×5 (05:20→20:39)
[2019-08-03 05:31] LABS: ALT/SGPT 39 U/L (12-78); AST/SGOT 19 U/L (15-37); Albumin 2.1 g/dL (3.4-5.0); Alkaline Phosphatase 62 U/L (45-117); BUN Blood Urea Nitrogen 7 mg/dL (7-18); Bicarbonate 22 mmol/L (21-32); Bilirubin Total 0.8 mg/dL (0.2-1.0); Glucose Level 209 mg/dL (74-106); Lipase 581 U/L (73-393); Magnesium 1.8 mg/dL (1.8-2.4); Potassium 3.2 mmol/L (3.5-5.1); Sodium Level 139 mmol/L (136-145)
[2019-08-03] MEDS: gemfibroziL 600 MG TAB PO SCH ×2 (07:32→20:39)
[2019-08-03] MEDS: ENOXAPARIN 30 MG/0.3 ML SQ SCH ×2 (07:32→20:39)
[2019-08-03] MEDS: INSULIN -REGULAR HUMAN 50 UNIT/0.5 ML ML SQ SCH ×4 (07:58→20:39)
[2019-08-03] MEDS ORDERED: MAGNESIUM SULFATE 1 gm IVPB 1 GM/100 ML BAG IV ONE (09:00)
[2019-08-03] MEDS ORDERED: HYDROMORPHONE/PCA 10 MG/50 ML SYR IV PRN ×6 (09:22→14:24)
--- NOTE | 2019-08-03 12:11 | P.PN ---
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 No fever or chills Abdominal distention is better Review of Systems 10-point ROS is otherwise unremarkable Physical Examination - Vital Signs Temperature: 98.0 F Blood Pressure: 125/75 Pulse: 83 Respirations: 18 Pulse Ox (%): 95 - Physical Exam General: Alert, In no apparent distress HEENT: Atraumatic, Normocephalic Neck: Supple, 2+ carotid pulse no bruit Respiratory: Clear to auscultation bilaterally, Normal air movement Cardiovascular: Normal pulses, Regular rate/rhythm Capillary refill: <2 Seconds Gastrointestinal: W/out hepatosplenomegaly, Distended, Tenderness Musculoskeletal: No clubbing, No swelling Integumentary: No rashes, No breakdown Neurological: Normal speech, Normal strength at 5/5 x4 extr Lymphatics: No axilla or inguinal lymphadenopathy Rectal: Deferred - Studies Laboratory Last Values WBC 7.7 K/uL (4.3-10.9) 07/30/19 18: RBC 5.05 M/uL (4.33-5.43) 07/30/19 18:23 Hgb 15.3 g/dL (13.6-17.9) 07/30/19 18:23 Hct 41.4 % (39.6-49.0) 07/30/19 18:23 MCV 81.9 fL (80-100) 07/30/19 18:23 MCH 30.2 pg (27.0-35.0) 07/30/19 18: MCHC 36.9 g/dL (32.0-36.0) H 07/30/19 18:23 RDW 14.0 % (12.1-15.2) 07/30/19 18:23 Plt Count 251 K/uL (152-406) 07/30/19 18:23 MPV 10.2 fL (7.6-11.3) 07/30/19 18:23 Neutrophils % 69.0 % (41.7-73.7) 07/30/19 18:23 Lymphocytes % 23.7 % (15.3-44.8) 07/30/19 18: Monocytes % 5.0 % (3.3-12.3) 07/30/19 18:23 Eosinophils % 0.8 % (0-4.4) 07/30/19 18: Basophils % 1.5 % (0-1.3) H 07/30/19 18: Absolute Neutrophils 5.3 K/uL (1.8-8.0) 07/30/19 18: Absolute Lymphocytes 1.8 K/uL (0.7-4.9) 07/30/19 18: Absolute Monocytes 0.4 K/uL (0.1-1.3) 07/30/19 18: Absolute Eosinophils 0.1 K/uL (0-0.5) 07/30/19 18: Absolute Basophils 0.1 K/uL (0-0.5) 07/30/19 18: Sodium 138 mmol/L (136-145) 07/30/19 18: Potassium 4.0 mmol/L (3.5-5.1) 07/30/19 18: Chloride 105 mmol/L (98-107) 07/30/19 18: Carbon Dioxide 22 mmol/L (21-32) 07/30/19 18: BUN 16 mg/dL (7-18) 07/30/19 18: Creatinine 1.00 mg/dL (0.55-1.3) 07/30/19 18: Estimated GFR 81 mL/min (=/>90) L 07/30/19 18: Glucose 398 mg/dL (74-106) H 07/30/19 18: Calcium 9.3 mg/dL (8.5-10.1) 07/30/19 18: Total Bilirubin 0.4 mg/dL (0.2-1.0) 07/30/19 18: Direct Bilirubin < 0.1 mg/dL (0-0.2) 07/30/19 18: AST 22 U/L (15-37) 07/30/19 18: ALT 49 U/L (12-78) 07/30/19 18: Alkaline Phosphatase 77 U/L (45-117) 07/30/19 18: Serum Total Protein 8.1 g/dL (6.4-8.2) 07/30/19 18: Albumin 4.0 g/dL (3.4-5.0) 07/30/19 18:23 Globulin 4.1 g/dL (2.3-3.5) H 07/30/19 18:23 Albumin/Globulin Ratio 1.0 (1.1-1.8) L 07/30/19 18:23 Lipase 1261 U/L (73-393) H 07/30/19 18:23 Assessment & Plan - Problems (Diagnosis) (1) Acute pancreatitis Onset Date: 11/14/16 Current Visit: No Status: Acute Qualifiers: Pancreatitis type: unspecified pancreatitis type Acute pancreatitis complication: no infection or necrosis Qualified Code(s): K85.90 - Acute pancreatitis without necrosis or infection, unspecified (2) hypertriglyceridemia induce pancreatitis Onset Date: 07/08/17 Current Visit: No Status: Acute (3) Diabetes mellitus Onset Date: 11/14/16 Current Visit: No Status: Chronic Qualifiers: Diabetes mellitus complication status: with hyperglycemia (4) Fatty liver Onset Date: 11/14/16 Current Visit: No Status: Chronic (5) GERD (gastroesophageal reflux disease) Current Visit: No Status: Chronic Qualifiers: Esophagitis presence: without esophagitis Qualified Code(s): K21.9 - Gastro-esophageal reflux disease without esophagitis (6) Hypertriglyceridemia Onset Date: 11/14/16 Current Visit: No Status: Chronic (7) Obesity (BMI 30-39.9) Onset Date: 11/14/16 Current Visit: No Status: Chronic Physician Review Additional Text: Impression: Epigastric abdominal pain, nausea and vomiting secondary to acute, recurrent hypertriglyceridemia pancreatitis Diabetes mellitus type 2 with hyperglycemia Hypertension GERD Mixed Hyperlipidemia Chronic pain Obesity, BMI 32.3 Plan: Epigastric abdominal pain, nausea and vomiting secondary to acute, recurrent hypertriglyceridemia pancreatitis: Continue hydration Pain controlled well with pain pump will change to dilaudid IV p.r.n. Start on clear liquid diet PPI Anti nausea medication Insulin drip was stopped monitor triglyceride level in a.m. CT showed moderately severe acute pancreatitis MRCP findings noted mild dilation of the hepatic duct possibly physiologic after cholecystectomy, no stones or strictures Monitor closely under telemetry Lipase level trended Added on gemfibrozil Tachycardia Resolved Diabetes mellitus type 2 with hyperglycemia: Was on insulin drip to help with the pancreatitis related to hypertriglyceridemia. Started on aggressive insulin sliding scale Will do Accu-Cheks Hypertension: Hydralazine p.r.n., Will start on p.o. antihypertensives and titrate GERD: PPI Mixed Hyperlipidemia: Monitor lipid panel Chronic pain: Obesity, BMI 32.3: Advised lifestyle modification Disposition plans : Wean off LICENSE EXAMINER pump Continue pain control Dc home once clinically better Time Spent Managing Pts Care (In Minutes): 40
[2019-08-03] MEDS: ONDANSETRON 4 MG/2 ML VIAL IV PRN (13:01)
[2019-08-03 23:42] VITALS: O2SAT 96
[2019-08-04] MEDS: D5 0.9 NS 1,000 ML IV SCH ×3 (00:32→17:32)
[2019-08-04] MEDS: ONDANSETRON 4 MG/2 ML VIAL IV PRN ×3 (00:37→17:33)
[2019-08-04 06:31] LABS: ALT/SGPT 33 U/L (12-78); AST/SGOT 15 U/L (15-37); Albumin 2.3 g/dL (3.4-5.0); Alkaline Phosphatase 70 U/L (45-117); BUN Blood Urea Nitrogen 3 mg/dL (7-18); Bicarbonate 23 mmol/L (21-32); Bilirubin Direct 0.3 mg/dL (0-0.2); Bilirubin Total 0.9 mg/dL (0.2-1.0); Glucose Level 234 mg/dL (74-106); Lipase 394 U/L (73-393); Magnesium 1.8 mg/dL (1.8-2.4); Potassium 3.2 mmol/L (3.5-5.1); Protein, Total 6.4 g/dL (6.4-8.2); Sodium Level 143 mmol/L (136-145)
[2019-08-04 07:09] LABS: Basophils % 0.3 % (0-1.3); Hematocrit 30.3 % (39.6-49.0); MPV 9.3 fL (7.6-11.3); RBC Red Blood Cell Count 3.77 M/uL (4.33-5.43)
[2019-08-04] MEDS: INSULIN -REGULAR HUMAN 50 UNIT/0.5 ML ML SQ SCH ×4 (08:24→20:39)
[2019-08-04] MEDS: gemfibroziL 600 MG TAB PO SCH ×2 (08:26→20:39)
[2019-08-04] MEDS: ENOXAPARIN 30 MG/0.3 ML SQ SCH ×2 (08:27→20:39)
[2019-08-04] MEDS ORDERED: MAGNESIUM SULFATE 1 gm IVPB 1 GM/100 ML BAG IV ONE (09:00)
--- NOTE | 2019-08-04 09:30 | P.PN ---
Subjective Date of Service: 08/04/19 Primary Care Provider: [facility] Chief Complaint: ACUTE PANCREATITIS Patient complaining of persistent abdominal pain, constant, associated nausea and dry heaving. 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 His blood sugar levels have improved with subcutaneous insulin. He has been afebrile. Physical Examination - Vital Signs Temperature: 97.6 F Blood Pressure: 146/81 Pulse: 81 Respirations: 16 Pulse Ox (%): 98 - Physical Exam General: Alert, Mild distress HEENT: Mucous membr. moist/pink Neck: Supple, JVD not distended Respiratory: Clear to auscultation bilaterally, Normal air movement Cardiovascular: No edema, Regular rate/rhythm, Normal S1 S2 Gastrointestinal: Normal bowel sounds, Tenderness (Diffuse) Musculoskeletal: No swelling, No erythema Integumentary: No rashes Neurological: Normal speech, Normal strength at 5/5 x4 extr Assessment And Plan Physician Review Additional Text: Impression: Epigastric abdominal pain, Acute, recurrent hypertriglyceridemia pancreatitis Diabetes mellitus type 2 with hyperglycemia Hypertension GERD Mixed Hyperlipidemia Chronic pain Obesity, BMI 32.3 Plan: Epigastric abdominal pain, nausea and vomiting secondary to acute, recurrent hypertriglyceridemia pancreatitis: Continue hydration Pain controlled well with pain pump Continue pain pump. Clear liquid diet as tolerated Protonix. Supportive measures with antiemetics as needed. Continue subcutaneous insulin. monitor triglyceride level in a.m. Lipase level have trended down. Continue gemfibrozil for hypertriglyceridemia. Tachycardia Resolved Diabetes mellitus type 2 with hyperglycemia: Continue aggressive insulin sliding scale Accu-Cheks Hypertension: Hydralazine p.r.n., Start amlodipine. GERD: PPI Mixed Hyperlipidemia: Chronic pain: Obesity, BMI 32.3: Advised lifestyle modification
[2019-08-04] MEDS: HYDROMORPHONE HCL 1 MG/ML INJ IV PRN (22:04)
[2019-08-05] MEDS: D5 0.9 NS 1,000 ML IV SCH ×5 (00:19→17:55)
[2019-08-05] MEDS: ONDANSETRON 4 MG/2 ML VIAL IV PRN ×3 (01:28→16:01)
[2019-08-05] MEDS: HYDROMORPHONE HCL 1 MG/ML INJ IV PRN ×5 (01:37→22:35)
[2019-08-05 05:32] LABS: Absolute Lymphocytes (CBC) 1.1 K/uL (0.7-4.9); Basophils % 0.2 % (0-1.3); Hematocrit 30.7 % (39.6-49.0); Lymphocytes % 18.9 % (15.3-44.8); MPV 8.9 fL (7.6-11.3); RBC Red Blood Cell Count 3.83 M/uL (4.33-5.43)
[2019-08-05 05:41] LABS: ALT/SGPT 32 U/L (12-78); AST/SGOT 13 U/L (15-37); Albumin 2.3 g/dL (3.4-5.0); Alkaline Phosphatase 70 U/L (45-117); BUN Blood Urea Nitrogen 3 mg/dL (7-18); Bicarbonate 23 mmol/L (21-32); Bilirubin Total 0.7 mg/dL (0.2-1.0); Glucose Level 232 mg/dL (74-106); Lipase 341 U/L (73-393); Magnesium 1.7 mg/dL (1.8-2.4); Protein, Total 6.6 g/dL (6.4-8.2); Sodium Level 139 mmol/L (136-145)
[2019-08-05 05:43] LABS: Potassium 2.9 mmol/L (3.5-5.1)
[2019-08-05 06:11] VITALS: BMI 33.7
[2019-08-05 06:17] LABS: Blood Morphology Comment NOT SEEN (NOT SEEN); Platelet Estimate ADEQ
[2019-08-05] MEDS: KCL 20 MEQ/100 mL IVPB 20 MEQ/100 ML BAG IV SCH ×3 (06:30→11:30)
[2019-08-05] MEDS ORDERED: MAGNESIUM SULFATE 1 gm IVPB 1 GM/100 ML BAG IV ONE (08:00)
[2019-08-05] MEDS: INSULIN -REGULAR HUMAN 50 UNIT/0.5 ML ML SQ SCH ×4 (08:11→21:14)
[2019-08-05] MEDS: gemfibroziL 600 MG TAB PO SCH ×2 (08:12→21:12)
[2019-08-05] MEDS: ENOXAPARIN 30 MG/0.3 ML SQ SCH ×2 (08:13→21:12)
--- NOTE | 2019-08-05 09:00 | P.PN ---
Subjective Date of Service: 08/05/19 Primary Care Provider: [facility] Chief Complaint: ACUTE PANCREATITIS Patient states his pain is better today. He also states the nausea has improved. 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 Physical Examination - Vital Signs Temperature: 97.3 F Blood Pressure: 140/82 Pulse: 83 Respirations: 18 Pulse Ox (%): 98 - Physical Exam General: In no apparent distress HEENT: Mucous membr. moist/pink Neck: Supple Respiratory: Clear to auscultation bilaterally, Normal air movement Cardiovascular: No edema, Regular rate/rhythm, Normal S1 S2 Gastrointestinal: Normal bowel sounds, Non-distended, Tenderness (Moderate tenderness in the epigastrium) Musculoskeletal: No swelling, No erythema Integumentary: No rashes Assessment And Plan Physician Review Additional Text: Impression: Epigastric abdominal pain, Acute, recurrent hypertriglyceridemia pancreatitis Diabetes mellitus type 2 with hyperglycemia Hypertension GERD Mixed Hyperlipidemia Chronic pain Obesity, BMI 32.3 Plan: Epigastric abdominal pain, nausea and vomiting secondary to acute, recurrent hypertriglyceridemia pancreatitis: Continue hydration He has been weaned off Dilaudid CLINICAL AIDE Continue IV Dilaudid prn. Advanced to full liquid diet as tolerated. Continue Protonix. Supportive measures with antiemetics as needed. Continue subcutaneous insulin. Lipase level have trended down to normal. Continue gemfibrozil for hypertriglyceridemia. Tachycardia Resolved Diabetes mellitus type 2 with hyperglycemia: Continue aggressive insulin sliding scale Accu-Cheks Hypertension: Hydralazine p.r.n., Amlodipine. GERD: PPI Mixed Hyperlipidemia: Chronic pain: Obesity, BMI 32.3: Advised lifestyle modification
[2019-08-05] MEDS: AMLODIPINE 5 MG TAB PO SCH (10:10)
--- NOTE | 2019-08-05 14:10 | P.PN ---
Subjective Date of Service: 08/05/19 Primary Care Provider: [facility] Chief Complaint: ACUTE PANCREATITIS Subjective: No new changes Physical Examination - Vital Signs Temperature: 97.3 F Blood Pressure: 133/79 Pulse: 79 Respirations: 18 Pulse Ox (%): 98 - Physical Exam General: Alert, In no apparent distress, Cooperative Respiratory: Clear to auscultation bilaterally, Normal air movement Gastrointestinal: Tenderness, Guarding Musculoskeletal: No clubbing, No swelling Integumentary: No rashes Neurological: Normal speech Assessment And Plan - Current Problems (Diagnosis) (1) Acute pancreatitis Current Visit: Yes Status: Acute Plan: - Gen / neuro : continue IV pain medication, continue PRN breakthrough, add PRN norco - CVS: continue IV fluid resuscitation, with strict i/i - Pulm: incentive spirometry with goal of 15cc/kg based on ideal body weight, sit up as much as possible - GI : serial exams, tenderness improving, no NG placed, continue to hold for now unless emesis returns, given appearance and history, patient has a higher liklihood of pancreatic pseudocyst formation. - FEN: continue IV fluid resuscitation but judicious, electrolyte replacement protocol for Mg. Phos, K+. Start ICE chips PO - ID: SIRS - no need for antibioitcs, no evidence of infected pancreatits - Prophylaxis: continue anticoagulation - patient has narrowing of Portal vein - Renal: good urine output - PT / OT consultation - Endocrine: continue insulin sliding scale - medical management for hypertriglyceridemia Physician Review Additional Text: Impression: Epigastric abdominal pain, Acute, recurrent hypertriglyceridemia pancreatitis Diabetes mellitus type 2 with hyperglycemia Hypertension GERD Mixed Hyperlipidemia Chronic pain Obesity, BMI 32.3 Plan: Epigastric abdominal pain, nausea and vomiting secondary to acute, recurrent hypertriglyceridemia pancreatitis: Continue hydration 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 Advanced to full liquid diet as tolerated. Continue Protonix. Supportive measures with antiemetics as needed. Continue subcutaneous insulin. Lipase level have trended down to normal. Continue gemfibrozil for hypertriglyceridemia. Tachycardia Resolved Diabetes mellitus type 2 with hyperglycemia: Continue aggressive insulin sliding scale Accu-Cheks Hypertension: Hydralazine p.r.n., Amlodipine. GERD: PPI Mixed Hyperlipidemia: Chronic pain: Obesity, BMI 32.3: Advised lifestyle modification
--- NOTE | 2019-08-05 14:10 | P.PN ---
Subjective Date of Service: 07/10/19 Primary Care Provider: [facility] Chief Complaint: ACUTE PANCREATITIS Subjective: No new changes (Patient continues to have pain, no acute changes, tolerating clears, but can cause worsening pain if too much liquid consumed.) Physical Examination - Vital Signs Temperature: 97.3 F Blood Pressure: 133/79 Pulse: 79 Respirations: 18 Pulse Ox (%): 98 - Physical Exam General: Alert, In no apparent distress, Cooperative Respiratory: Clear to auscultation bilaterally, Normal air movement Cardiovascular: No edema Gastrointestinal: Other (soft, + global TTP, worse in epigastrium, no rebound.) Musculoskeletal: No clubbing, No swelling Assessment And Plan - Current Problems (Diagnosis) (1) Acute pancreatitis Current Visit: Yes Status: Acute Plan: - Gen / neuro : continue IV pain medication, continue PRN breakthrough, add PRN norco - CVS: continue IV fluid resuscitation, with strict i/i - Pulm: incentive spirometry with goal of 15cc/kg based on ideal body weight, sit up as much as possible - GI : serial exams, tenderness improving, no NG placed, continue to hold for now unless emesis returns, given appearance and history, patient has a higher liklihood of pancreatic pseudocyst formation. - FEN: continue IV fluid resuscitation but judicious, electrolyte replacement protocol for Mg. Phos, K+. Start ICE chips PO - ID: SIRS - no need for antibioitcs, no evidence of infected pancreatits - Prophylaxis: continue anticoagulation - patient has narrowing of Portal vein - Renal: good urine output - PT / OT consultation - Endocrine: continue insulin sliding scale - medical management for hypertriglyceridemia Physician Review Additional Text: Impression: Epigastric abdominal pain, Acute, recurrent hypertriglyceridemia pancreatitis Diabetes mellitus type 2 with hyperglycemia Hypertension GERD Mixed Hyperlipidemia Chronic pain Obesity, BMI 32.3 Plan: Epigastric abdominal pain, nausea and vomiting secondary to acute, recurrent hypertriglyceridemia pancreatitis: Continue hydration 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 Advanced to full liquid diet as tolerated. Continue Protonix. Supportive measures with antiemetics as needed. Continue subcutaneous insulin. Lipase level have trended down to normal. Continue gemfibrozil for hypertriglyceridemia. Tachycardia Resolved Diabetes mellitus type 2 with hyperglycemia: Continue aggressive insulin sliding scale Accu-Cheks Hypertension: Hydralazine p.r.n., Amlodipine. GERD: PPI Mixed Hyperlipidemia: Chronic pain: Obesity, BMI 32.3: Advised lifestyle modification
[2019-08-05] MEDS ORDERED: KCL 20 MEQ/100 mL IVPB 20 MEQ/100 ML BAG IV SCH (16:00)
[2019-08-05] MEDS: HYDROCODONE/APAP 5/325 MG TAB PO PRN ×2 (16:01→21:16)
[2019-08-06] MEDS: D5 0.9 NS 1,000 ML IV SCH ×5 (00:07→23:05)
[2019-08-06] MEDS: HYDROCODONE/APAP 5/325 MG TAB PO PRN ×5 (02:11→23:55)
[2019-08-06 04:45] LABS: Absolute Lymphocytes (CBC) 1.2 K/uL (0.7-4.9); Basophils % 0.4 % (0-1.3); Hematocrit 31.5 % (39.6-49.0); Lymphocytes % 21.1 % (15.3-44.8); MPV 8.9 fL (7.6-11.3); RBC Red Blood Cell Count 3.89 M/uL (4.33-5.43)
[2019-08-06 05:05] LABS: ALT/SGPT 28 U/L (12-78); AST/SGOT 14 U/L (15-37); Albumin 2.4 g/dL (3.4-5.0); Alkaline Phosphatase 75 U/L (45-117); BUN Blood Urea Nitrogen 4 mg/dL (7-18); Bicarbonate 23 mmol/L (21-32); Bilirubin Total 0.6 mg/dL (0.2-1.0); Glucose Level 237 mg/dL (74-106); Lipase 299 U/L (73-393); Potassium 3.5 mmol/L (3.5-5.1); Protein, Total 6.7 g/dL (6.4-8.2); Sodium Level 139 mmol/L (136-145)
[2019-08-06] MEDS: HYDROMORPHONE HCL 1 MG/ML INJ IV PRN (06:24)
[2019-08-06] MEDS: INSULIN -REGULAR HUMAN 50 UNIT/0.5 ML ML SQ SCH ×4 (07:30→19:55)
--- NOTE | 2019-08-06 07:44 | P.PN ---
Subjective Date of Service: 08/06/19 Primary Care Provider: [facility] Chief Complaint: ACUTE PANCREATITIS Patient states his pain is better today. Patient not tolerating diet advancement. He has been getting pain medications around the clock. Physical Examination - Vital Signs Temperature: 97.3 F Blood Pressure: 138/81 Pulse: 70 Respirations: 18 Pulse Ox (%): 98 - Physical Exam General: Alert, In no apparent distress HEENT: Mucous membr. moist/pink, Sclerae nonicteric Respiratory: Clear to auscultation bilaterally, Normal air movement Cardiovascular: Regular rate/rhythm, Normal S1 S2 Gastrointestinal: Normal bowel sounds, Soft and benign, Tenderness (Mild tenderness in the epigastrium) Musculoskeletal: No swelling, No erythema Integumentary: No rashes Assessment And Plan Physician Review Additional Text: Impression: Epigastric abdominal pain, Acute, recurrent hypertriglyceridemia pancreatitis Diabetes mellitus type 2 with hyperglycemia Hypertension GERD Mixed Hyperlipidemia Chronic pain Obesity, BMI 32.3 Plan: Epigastric abdominal pain, nausea and vomiting secondary to acute, recurrent hypertriglyceridemia pancreatitis: Continue hydration Continue opiates p.r.n. for pain Advanced to full liquid diet as tolerated. Consider TPN and disposition to LTAC if patient does not tolerate feeding today Continue Protonix. Continue subcutaneous insulin. Lipase level have trended down to normal. Continue gemfibrozil for hypertriglyceridemia. Tachycardia Resolved Diabetes mellitus type 2 with hyperglycemia: Continue aggressive insulin sliding scale Accu-Cheks Hypertension: Hydralazine p.r.n., Amlodipine. GERD: PPI Mixed Hyperlipidemia: Chronic pain: Obesity, BMI 32.3: Advised lifestyle modification
[2019-08-06] MEDS ORDERED: POTASSIUM CL SA 10 MEQ TAB PO ONE (08:00)
[2019-08-06] MEDS: AMLODIPINE 5 MG TAB PO SCH (08:13)
[2019-08-06] MEDS: gemfibroziL 600 MG TAB PO SCH ×2 (08:13→19:55)
[2019-08-06] MEDS: ENOXAPARIN 30 MG/0.3 ML SQ SCH ×2 (08:14→19:55)
--- NOTE | 2019-08-06 10:30 | P.PN ---
Subjective Date of Service: 08/06/19 Primary Care Provider: [facility] Chief Complaint: ACUTE PANCREATITIS Subjective: No new changes (patient has continued pain, unable to tolerate diet) Physical Examination - Vital Signs Temperature: 97.2 F Blood Pressure: 142/85 Pulse: 77 Respirations: 18 Pulse Ox (%): 98 - Physical Exam General: Alert, In no apparent distress, Cooperative HEENT: Mucous membr. moist/pink Respiratory: Normal air movement Gastrointestinal: Other (epigastric TTP, unchanged) Assessment And Plan - Current Problems (Diagnosis) (1) Acute pancreatitis Current Visit: Yes Status: Acute Plan: - Gen / neuro : continue IV pain medication, continue PRN breakthrough, add PRN norco - CVS: continue IV fluid resuscitation, with strict i/i - Pulm: incentive spirometry with goal of 15cc/kg based on ideal body weight, sit up as much as possible - GI : serial exams, tenderness improving, no NG placed, continue to hold for now unless emesis returns, given appearance and history, patient has a higher liklihood of pancreatic pseudocyst formation. - FEN: continue IV fluid resuscitation but judicious, electrolyte replacement protocol for Mg. Phos, K+. Start ICE chips PO, consider PICC and LTAC - ID: SIRS - no need for antibioitcs, no evidence of infected pancreatits - Prophylaxis: continue anticoagulation - patient has narrowing of Portal vein - Renal: good urine output - PT / OT consultation - Endocrine: continue insulin sliding scale - medical management for hypertriglyceridemia - recommend repeat CT if symptoms dont resolve to rule out pancreatic pseudocyst Physician Review Additional Text: Impression: Epigastric abdominal pain, Acute, recurrent hypertriglyceridemia pancreatitis Diabetes mellitus type 2 with hyperglycemia Hypertension GERD Mixed Hyperlipidemia Chronic pain Obesity, BMI 32.3 Plan: Epigastric abdominal pain, nausea and vomiting secondary to acute, recurrent hypertriglyceridemia pancreatitis: Continue hydration Continue opiates p.r.n. for pain Advanced to full liquid diet as tolerated. Consider TPN and disposition to LTAC if patient does not tolerate feeding today Continue Protonix. Continue subcutaneous insulin. Lipase level have trended down to normal. Continue gemfibrozil for hypertriglyceridemia. Tachycardia Resolved Diabetes mellitus type 2 with hyperglycemia: Continue aggressive insulin sliding scale Accu-Cheks Hypertension: Hydralazine p.r.n., Amlodipine. GERD: PPI Mixed Hyperlipidemia: Chronic pain: Obesity, BMI 32.3: Advised lifestyle modification
[2019-08-07] MEDS: D5 0.9 NS 1,000 ML IV SCH (06:46)
[2019-08-07 07:50] LABS: BUN Blood Urea Nitrogen 3 mg/dL (7-18); Bicarbonate 24 mmol/L (21-32); Glucose Level 235 mg/dL (74-106); Potassium 3.2 mmol/L (3.5-5.1); Sodium Level 141 mmol/L (136-145)
[2019-08-07] MEDS ORDERED: POTASSIUM CL SA 10 MEQ TAB PO ONE (08:08)
[2019-08-07] MEDS: HYDROCODONE/APAP 5/325 MG TAB PO PRN (08:09)
[2019-08-07] MEDS: ENOXAPARIN 30 MG/0.3 ML SQ SCH (08:09)
[2019-08-07] MEDS: AMLODIPINE 5 MG TAB PO SCH (08:09)
[2019-08-07] MEDS: gemfibroziL 600 MG TAB PO SCH (08:09)
[2019-08-07] MEDS: INSULIN -REGULAR HUMAN 50 UNIT/0.5 ML ML SQ SCH ×2 (08:10→12:18)
--- NOTE | 2019-08-07 08:11 | P.DS ---
Admission Date: 07/30/19 Discharge Date: 08/07/19 Primary Care Provider: [facility] Disposition: ROUTINE DISCHARGE Discharge Condition: FAIR Reason for Admission: ACUTE PANCREATITIS - Problems (1) Acute pancreatitis Current Visit: Yes Status: Acute (2) Hyperlipidemia Current Visit: Yes Status: Acute Qualifiers: Hyperlipidemia type: pure hypertriglyceridemia Qualified Code(s): E78.1 - Pure hyperglyceridemia (3) Abdominal pain Onset Date: 04/28/14 Current Visit: No Status: Acute (4) Diabetes mellitus Onset Date: 11/14/16 Current Visit: No Status: Chronic Qualifiers: Diabetes mellitus complication status: with hyperglycemia (5) GERD (gastroesophageal reflux disease) Current Visit: No Status: Chronic Qualifiers: Esophagitis presence: without esophagitis Qualified Code(s): K21.9 - Gastro-esophageal reflux disease without esophagitis Brief History of Present Illness: 44-year-old gentleman with a history of diabetes mellitus presented to the emergency department with a complaint of abdominal pain. His lipase level was severely elevated. Patient known to have hypertriglyceridemia. CT abdomen and pelvis done reported findings suggestive of acute pancreatitis. Patient was admitted for further management. Hospital Course: Patient admitted to the medical floor for supportive measures with IV hydration, pain management, antiemetics and bowel rest. His lipase level trended up to 12,000. Patient was in severe abdominal pain. General surgery was consulted to assist with management. He was transferred to ICU and pain managed with Dilaudid ASPHALT LAYER. He did not tolerate oral intake for several days. Patient's sy mptoms improved with supportive measures, Dilaudid ASPHALT LAYER was weaned off, patient pain improved, he tolerated diet advancement from clear liquid to soft diet. Lipase level trended down to normal. Patient is deemed clinically stable for discharge. Vital Signs/Physical Exam: Temp Pulse Resp BP Pulse Ox 97.5 F 73 16 129/79 98 08/07/19 04:00 08/07/19 04:00 08/07/19 04:00 08/07/19 04:00 08/07/19 04:00 General: Alert, In no apparent distress HEENT: Mucous membr. moist/pink, Sclerae nonicteric Neck: Supple Respiratory: Clear to auscultation bilaterally, Normal air movement Cardiovascular: No edema, Normal pulses, Regular rate/rhythm, Normal S1 S2 Gastrointestinal: Normal bowel sounds, Soft and benign, Tenderness (Mild epigastric tenderness) Laboratory Data at Discharge: WBC 5.9 K/uL (4.3-10.9) 08/06/19 04:09 Hgb 10.4 g/dL (13.6-17.9) L 08/06/19 04:09 Hct 31.5 % (39.6-49.0) L 08/06/19 04:09 Plt Count 199 K/uL (152-406) 08/06/19 04:09 PT Cancelled 07/31/19 05:00 INR Cancelled 07/31/19 05:00 APTT 31.1 SECONDS (24.3-36.9) 07/31/19 05:24 Sodium 141 mmol/L (136-145) 08/07/19 04:58 Potassium 3.2 mmol/L (3.5-5.1) L 08/07/19 04:58 BUN 3 mg/dL (7-18) L 08/07/19 04:58 Creatinine 0.59 mg/dL (0.55-1.3) 08/07/19 04:58 Glucose 235 mg/dL (74-106) H 08/07/19 04:58 Magnesium 2.0 mg/dL (1.8-2.4) 08/06/19 04:09 Total Bilirubin 0.6 mg/dL (0.2-1.0) 08/06/19 04:09 AST 14 U/L (15-37) L 08/06/19 04:09 ALT 28 U/L (12-78) 08/06/19 04:09 Alkaline Phosphatase 75 U/L (45-117) 08/06/19 04:09 Troponin I < 0.02 ng/mL (0.0-0.045) 07/31/19 18:08 Triglycerides 397 mg/dL (<150) H 08/04/19 05:40 Cholesterol 334 mg/dL (<200) H 07/31/19 05:24 Cholesterol Cancelled 07/31/19 05:24 LDL Cholesterol Direct 67 mg/dL (100-129) L 08/02/19 14:12 HDL Cholesterol 33 mg/dL (40-60) L 07/31/19 05:24 HDL Cholesterol Cancelled 07/31/19 05:24 Cholesterol/HDL Ratio 10.12 07/31/19 05:24 Cholesterol/HDL Ratio Cancelled 07/31/19 05:24 Lipase 299 U/L (73-393) 08/06/19 04:09 Home Medications: Insulin Degludec [Tresiba Flextouch U-100] 30 units SQ DAILY 03/29/18 Metformin HCl [Glucophage] 1,000 mg PO BIDWM 03/29/18 Pantoprazole Sodium [Protonix] 20 mg PO DAILY 03/29/18 Docosahexanoic AC/Epa [Fish Oil 1,000 MG*] 2,000 mg PO BID #120 cap 02/10/19 Atorvastatin Calcium 40 mg PO BEDTIME #40 tablet 06/04/19 Metoclopramide HCl [Reglan] 10 mg PO SEECOM 07/30/19 Codeine/APAP [Tylenol #3*] 1 tab PO Q6HP PRN #30 tab 08/07/19 gemfibroziL [Lopid*] 600 mg PO BID #60 tab 08/07/19 New Medications: Codeine/APAP [Tylenol #3*] 1 tab PO Q6HP PRN #30 tab PRN Reason: Pain gemfibroziL [Lopid*] 600 mg PO BID #60 tab Diet: ADA soft diet and advance as tolerated. Activity: Ad stanley Followup: Herb Rodriguez MD [ACTIVE - CAN ADMIT] - (Within 2 weeks.) Time spent managing pt's care (in minutes): 40
[2019-08-07 14:05] VITALS: BP 117/74; TEMP 97.8
== END 2019-08-07 14:19 | disposition home or self-care (01) | DRG 440 ==
LOC: ER 17:32 → 2ND 22:20 → 3RD-ICU 07-31 10:55 → 2ND 08-03 03:40
PROVIDERS: ADMIT Hospitalist; ATTEND Internal Medicine
DX: K85.90 Acute pancreatitis without necrosis or infection, unspecified (principal); K76.0 Fatty (change of) liver, not elsewhere classified; E11.65 Type 2 diabetes mellitus with hyperglycemia; I10 Essential (primary) hypertension; G89.29 Other chronic pain; E78.2 Mixed hyperlipidemia; E78.1 Pure hyperglyceridemia; R00.0 Tachycardia, unspecified; K21.9 Gastro-esophageal reflux disease without esophagitis; E66.9 Obesity, unspecified; Z68.33 Body mass index [BMI] 33.0-33.9, adult; Z79.4 Long term (current) use of insulin; Z79.84 Long term (current) use of oral hypoglycemic drugs; Z79.891 Long term (current) use of opiate analgesic; Z79.899 Other long term (current) drug therapy; Z90.49 Acquired absence of other specified parts of digestive tract; Z98.52 Vasectomy status; Z87.891 Personal history of nicotine dependence
CPT/HCPCS: 36415; 71045; 74177; 74181; 80048; 80053; 80061; 80076; 82248; 82947; 83036; 83605; 83690; 83735; 84132; 84478; 84484; 85025; 85730; 87040; 96361; 96374; 96375; 99285; C9113; J1170; J1200; J1650; J2270; J2405; J2550; J3010; J3411; J3475; J7030; J7040; J7042; J7120; Q9967

== ENCOUNTER 2019-10-30 12:50 | Inpatient (IN) | payer OTHER ==
--- OUTSIDE RECORDS SUMMARY | 2019-10-30 12:52 | XMS REPORT | Continuity of Care Document ---
:1975 Author Organization [facility] t Address [address] [place] [address] [address] [place] [address] Care Team Providers Name Role Phone Unavailable Unavailable Unavailable Problems This patient has no known problems. Allergies, Adverse Reactions, Alerts This patient has no known allergies or adverse reactions. Medications This patient has no known medications. Procedures This patient has no known procedures. Results This patient has no known results.
[2019-10-30] MEDS ORDERED: HYDROMORPHONE HCL 1 MG/ML INJ ONE ×4 (13:35→19:22)
[2019-10-30] MEDS ORDERED: ONDANSETRON 4 MG/2 ML VIAL ONE ×3 (13:35→19:22)
[2019-10-30] MEDS ORDERED: NA CHLORIDE 0.9% 2,000 ML ONE (13:35)
[2019-10-30] MEDS ORDERED: FAMOTIDINE 20 MG/2 ML VIAL IV ONE (13:35)
[2019-10-30 13:50] LABS: Protime INR 1.01
[2019-10-30 14:00] LABS: Basophils % 0.4 % (0-1.3); Hematocrit 41.4 % (39.6-49.0); Lymphocytes % 11.1 % (15.3-44.8); MPV 10.4 fL (7.6-11.3); RBC Red Blood Cell Count 5.16 M/uL (4.33-5.43)
[2019-10-30] MEDS ORDERED: NA CHLORIDE 0.9% 1,000 ML ONE ×3 (15:13→19:22)
[2019-10-30 15:30] LABS: ALT/SGPT 55 U/L (12-78); Albumin 3.3 g/dL (3.4-5.0); Alkaline Phosphatase 88 U/L (45-117); BUN Blood Urea Nitrogen 12 mg/dL (7-18); Bicarbonate 22 mmol/L (21-32); Bilirubin Direct < 0.1 mg/dL (0-0.2); Bilirubin Total 0.9 mg/dL (0.2-1.0); Glucose Level 260 mg/dL (74-106); Protein, Total 8.5 g/dL (6.4-8.2); Sodium Level 138 mmol/L (136-145)
[2019-10-30 15:31] LABS: Lipase 3143 U/L (73-393); NT PRO-BNP 13 pg/mL (<125); Troponin (Emerg Dept Use Only) < 0.02 ng/mL (0.0-0.045)
[2019-10-30 15:33] LABS: AST/SGOT 65 U/L (15-37); Potassium 5.4 mmol/L (3.5-5.1)
--- NOTE | 2019-10-30 15:40 | EDPHYS ---
Physician Documentation [facility] Name: Javier Rutherford Age: 44 yrs Sex: Male : 1975 Arrival Date: 10/30/2019 Time: 12:52 Bed 15 Private MD: ED Physician HPI: 10/29 13:30 This 44 yrs old Male presents to ER via Ambulatory with complaints of erlin Abdominal Pain. 13:30 The patient presents with abdominal pain in the epigastric area, in the upper abdomen. erlin Onset: The symptoms/episode began/occurred 1 day(s) ago. The symptoms radiate to back. Associated signs and symptoms: none. The symptoms are described as crampy, dull, stabbing, steady. Modifying factors: The symptoms are alleviated by nothing, the symptoms are aggravated by nothing. Severity of pain: At its worst the pain was moderate severe in the emergency department the pain is unchanged. The patient has not experienced similar symptoms in the past. Historical: - Allergies: 13:06 No Known Allergies; jd3 - Home Meds: 13:06 fenofibrate 200 mg Oral tab 1 cap once daily [Active]; metformin 1,000 mg Oral tab 1 jd3 tab 2 times per day [Active]; Tresiba FlexTouch U-100 subcutaneous [Active]; - PMHx: 13:06 Diabetes - NIDDM; fatty liver; Hyperlipidemia; Pancreatitis; jd3 - PSHx: 13:06 Hernia repair; Cholecystectomy; jd3 - Immunization history:: Adult Immunizations up to date. - Social history:: Smoking status: Patient denies any tobacco usage or history of. - Family history:: not pertinent. ROS: 13:30 Constitutional: Negative for fever, chills, and weight loss, Eyes: Negative for injury, erlin pain, redness, and discharge, ENT: Negative for injury, pain, and discharge, Neck: Negative for injury, pain, and swelling, Cardiovascular: Negative for chest pain, palpitations, and edema, Respiratory: Negative for shortness of breath, cough, wheezing, and pleuritic chest pain, Back: Negative for injury and pain, : Negative for injury, bleeding, discharge, and swelling, MS/Extremity: Negative for injury and deformity, Skin: Negative for injury, rash, and discoloration, Neuro: Negative for headache, weakness, numbness, tingling, and seizure, Psych: Negative for depression, anxiety, suicide ideation, homicidal ideation, and hallucinations, Allergy/Immunology: Negative for hives, rash, and allergies, Endocrine: Negative for neck swelling, polydipsia, polyuria, polyphagia, and marked weight changes, Hematologic/Lymphatic: Negative for swollen nodes, abnormal bleeding, and unusual bruising. 13:30 Abdomen/GI: Positive for abdominal pain, nausea and vomiting, abdominal cramps, abdominal distension, of the epigastric area, right upper quadrant and left upper quadrant. Exam: 13:30 Constitutional: This is a well developed, well nourished patient who is awake, alert, erlin and in no acute distress. Head/Face: Normocephalic, atraumatic. Eyes: Pupils equal round and reactive to light, extra-ocular motions intact. Lids and lashes normal. Conjunctiva and sclera are non-icteric and not injected. Cornea within normal limits. Periorbital areas with no swelling, redness, or edema. ENT: Nares patent. No nasal discharge, no septal abnormalities noted. Tympanic membranes are normal and external auditory canals are clear. Oropharynx with no redness, swelling, or masses, exudates, or evidence of obstruction, uvula midline. Mucous membranes moist. Neck: Trachea midline, no thyromegaly or masses palpated, and no cervical lymphadenopathy. Supple, full range of motion without nuchal rigidity, or vertebral point tenderness. No Meningismus. Chest/axilla: Normal chest wall appearance and motion. Nontender with no deformity. No lesions are appreciated. Cardiovascular: Regular rate and rhythm with a normal S1 and S2. No gallops, murmurs, or rubs. Normal PMI, no JVD. No pulse deficits. Respiratory: Lungs have equal breath sounds bilaterally, clear to auscultation and percussion. No rales, rhonchi or wheezes noted. No increased work of breathing, no retractions or nasal flaring. Back: No spinal tenderness. No costovertebral tenderness. Full range of motion. Male : Normal genitalia with no discharge or lesions. Skin: Warm, dry with normal turgor. Normal color with no rashes, no lesions, and no evidence of cellulitis. MS/ Extremity: Pulses equal, no cyanosis. Neurovascular intact. Full, normal range of motion. Neuro: Awake and alert, GCS 15, oriented to person, place, time, and situation. Cranial nerves II-XII grossly intact. Motor strength 5/5 in all extremities. Sensory grossly intact. Cerebellar exam normal. Normal gait. Psych: Awake, alert, with orientation to person, place and time. Behavior, mood, and affect are within normal limits. 13:30 Abdomen/GI: Inspection: abdomen appears normal, Bowel sounds: active, Palpation: moderate abdominal tenderness, in the epigastric area, right upper quadrant and left upper quadrant, Liver: no appreciated palpable abnormalities, Hernia: not appreciated. 13:42 ECG was reviewed by the Attending Physician. erlin Vital Signs: 13:05 BP 149 / 95; Pulse 79; Resp 20 S; Temp 98.1(O); Pulse Ox 99% on R/A; Weight 99.79 kg jd3 (R); Height 5 ft. 8 in. (172.72 cm) (R); Pain 10/10; 14:00 BP 143 / 76; Pulse 79; Resp 16; Pulse Ox 95% ; rb1 15:00 BP 155 / 90; Pulse 95; Resp 17; Pulse Ox 97% ; rb1 16:36 BP 137 / 83; Pulse 86; Resp 16; Pulse Ox 96% ; rb1 17:30 BP 135 / 86; Pulse 88; Resp 17; Pulse Ox 99% ; rb1 18:30 BP 142 / 89; Pulse 87; Resp 16; Pulse Ox 99% on R/A; rb1 19:20 BP 141 / 75; Pulse 80; Resp 17; Temp 98; Pulse Ox 99% ; Pain 8/10; rr5 20:26 BP 136 / 81; Pulse 75; Resp 16; Pulse Ox 99% on R/A; Pain 4/10; rr5 21:20 BP 151 / 70; Pulse 82; Resp 19; Pulse Ox 98% on R/A; rr5 22:00 BP 144 / 92; Pulse 70; Resp 19; Pulse Ox 98% ; rr5 23:00 BP 132 / 80; Pulse 79; Resp 16; Pulse Ox 99% ; rr5 10/30 00:00 BP 133 / 76; Pulse 95; Resp 15; Pulse Ox 98% ; rr5 00:59 BP 129 / 88; Pulse 100; Resp 19; Temp 99.5; Pulse Ox 99% ; Pain 8/10; rr5 10/29 13:05 Body Mass Index 33.45 (99.79 kg, 172.72 cm) jd3 MDM: 10/29 13:13 Patient medically screened. [facility] 13:34 Differential diagnosis: bowel obstruction, gastritis, gastroesophageal reflux disease, erlin Irritable bowel syndrome, non-specific abd pain, pancreatitis, Peptic Ulcer Disease, Perf. Duodenal Ulcer, Perf. Gastric Ulcer, Peritonitis, urinary tract infection. Data reviewed: vital signs, nurses notes, lab test result(s), EKG, radiologic studies, CT scan, plain films. Data interpreted: heel cementer machine: rate is 79 beats/min, rhythm is normal sinus rhythm, Pulse oximetry: is not applicable for this patient encounter. Test interpretation: by ED physician or midlevel provider: ECG, plain radiologic studies. Counseling: I had a detailed discussion with the patient and/or guardian regarding: the historical points, exam findings, and any diagnostic results supporting the discharge/admit diagnosis, the presence of at least one elevated blood pressure reading (>120/80) during this emergency department visit, lab results, radiology results, the need for further work-up and treatment in the hospital. Medication response: Zofran markedly relieved the patient's nausea. dilaudid. Response to treatment: the patient's symptoms have markedly improved after treatment. 10/29 13:12 Order name: Basic Metabolic Panel; Complete Time: 20:16 [facility] 10/29 13:12 Order name: CBC with Diff; Complete Time: 15:00 [facility] 10/29 13:12 Order name: LFT's; Complete Time: 20:16 [facility] 10/29 13:12 Order name: Magnesium; Complete Time: 20:16 [facility] 10/29 13:12 Order name: NT PRO-BNP; Complete Time: 20:16 [facility] 10/29 13:12 Order name: PT-INR; Complete Time: 15:00 [facility] 10/29 13:12 Order name: Troponin (emerg Dept Use Only); Complete Time: 20:16 [facility] 10/29 13:12 Order name: Lipase; Complete Time: 20:16 [facility] 10/29 13:12 Order name: Lipid Profile; Complete Time: 20:16 [facility] 10/29 15:57 Order name: LDL, Direct; Complete Time: 20:16 EDMS 10/29 18:31 Order name: COVID-19 aa5 10/29 19:58 Order name: Urine Microscopic Only rr5 10/29 20:05 Order name: Urine Dipstick--Ancillary (enter results) mw2 10/29 20:15 Order name: Urine Microscopic Only; Complete Time: 20:17 EDMI 10/29 20:47 Order name: Urine Dipstick-Ancillary EDMS 10/30 03:45 Order name: Urinalysis EDMS 10/30 03:55 Order name: Glucose, Ancillary Testing EDMS 10/30 05:45 Order name: Glucose, Ancillary Testing EDMS 10/30 05:56 Order name: CBC with Automated Diff EDMS 10/30 06:22 Order name: Protime (+INR) EDMS 10/30 06:36 Order name: Glucose, Ancillary Testing EDMS 10/30 06:57 Order name: Glucose, Ancillary Testing EDMS 10/30 07:43 Order name: Lipid Profile EDMS 10/30 07:57 Order name: LDL, Direct EDMS 10/30 08:01 Order name: Comprehensive Metabolic Panel EDMS 10/30 08:01 Order name: Phosphorus EDMS 10/30 08:01 Order name: Magnesium EDMS 10/30 08:10 Order name: Glucose, Ancillary Testing EDMS 10/30 09:11 Order name: Glucose, Ancillary Testing EDMS 10/30 10:33 Order name: Glucose, Ancillary Testing EDMS 10/29 13:12 Order name: XRAY Chest (1 view); Complete Time: 20:17 [facility] 10/29 13:12 Order name: EKG; Complete Time: 13:13 [facility] 10/29 13:12 Order name: Cardiac monitoring; Complete Time: 13:42 [facility] 10/29 13:12 Order name: EKG - Nurse/Tech; Complete Time: 13:40 [facility] 10/29 13:12 Order name: IV Saline Lock; Complete Time: 13:40 [facility] 10/29 13:12 Order name: Labs collected and sent; Complete Time: 13:42 [facility] 10/29 13:12 Order name: O2 Per Protocol; Complete Time: 13:40 [facility] 10/29 13:12 Order name: O2 Sat Monitoring; Complete Time: 13:40 [facility] 10/29 13:12 Order name: Urine Dipstick-Ancillary (obtain specimen); Complete Time: 19:58 [facility] 10/29 13:12 Order name: CT Abd/Pelvis - IV Contrast Only; Complete Time: 20:17 [facility] 10/30 11:24 Order name: Glucose, Ancillary Testing EDMS 10/30 12:23 Order name: Glucose, Ancillary Testing EDMS 10/30 13:29 Order name: Glucose, Ancillary Testing EDMS 10/30 14:23 Order name: Glucose, Ancillary Testing EDMS 10/30 15:20 Order name: Glucose, Ancillary Testing EDMS 10/30 16:23 Order name: Glucose, Ancillary Testing EDMS 10/30 17:22 Order name: Glucose, Ancillary Testing EDMS EC:42 Rate is 83 beats/min. Rhythm is regular. QRS [place] is Normal. MS interval is normal. QRS erlin interval is normal. QT interval is normal. No Q waves. T waves are Normal. No ST changes noted. Clinical impression: NSR w/ Non-specific ST/T Changes and No evidence of ischemia. Interpreted by me. Reviewed by me. Administered Medications: 13:40 Drug: Zofran (Ondansetron) 4 mg Route: IVP; Site: left antecubital; rb1 13:40 Drug: NS 0.9% 1000 ml Route: IV; Rate: 1 bolus; Site: left antecubital; rb1 13:40 Drug: Pepcid 20 mg Route: IVP; Site: left antecubital; rb1 13:41 Drug: Dilaudid 1 mg Route: IVP; Site: left antecubital; rb1 13:54 Follow up: Response: No adverse reaction; Pain is decreased rb1 13:41 Drug: NS 0.9% 1000 ml Route: IV; Rate: 1 bolus; Site: left antecubital; rb1 15:05 Drug: Dilaudid 1 mg Route: IVP; Site: left antecubital; bp 15:05 Drug: NS 0.9% 1000 ml Route: IV; Rate: 1 bolus; Site: left antecubital; bp 16:00 Drug: NS 0.9% 1000 ml Route: IV; Rate: 1 bolus; Site: left antecubital; bp 19:07 Drug: Zofran (Ondansetron) 4 mg Route: IVP; Site: left antecubital; aa5 20:20 Follow up: Response: No adverse reaction rr5 19:07 Drug: NS 0.9% 1000 ml Route: IV; Rate: 125 ml/hr; Site: left antecubital; aa5 10/30 01:06 Follow up: Response: No adverse reaction; IV Status: Completed infusion; IV Intake: rr5 1000ml 10/29 19:09 Drug: Dilaudid 1 mg Route: IVP; Site: left antecubital; aa5 20:40 Follow up: Response: No adverse reaction; Pain is decreased; RASS: Alert and Calm (0) rr5 Disposition: 10/30/19 15:39 Hospitalization ordered by Wilton Skinner for Inpatient Admission. Preliminary diagnosis are Abdominal tenderness, Acute pancreatitis, Hyperlipidemia, unspecified. - Bed requested for [facility] ER HOLD. - Status is Inpatient Admission. jd3 - Condition is Stable. - Problem is new. - Symptoms have improved. Signatures: Dispatcher [employer] EDMS Bret Lopez MD MD cha Mickail, Joel, PA PA jmm Ballard, Brenda, RN RN bb Diana Hay, RN RN aa5 Laura Lott, RN RN rb1 Stephen Fuentes RN RN jd3 Severo Galvan RN RN bp Roque, Raymond, RN RN rr5 Corrections: (The following items were deleted from the chart) 10/30 00:46 10/29 15:39 Hospitalization Ordered by Wilton Skinner for Inpatient Admission. bb Preliminary diagnosis is Abdominal tenderness; Acute pancreatitis; Hyperlipidemia, unspecified. Bed requested for Telemetry/MedSurg (Inpatient). Status is Inpatient Admission. Condition is Stable. Problem is new. Symptoms have improved. [facility] 10/30 01:42 00:46 10/30/2019 15:39 Hospitalization Ordered by Wilton Skinner for Inpatient rr5 Admission. Preliminary diagnosis is Abdominal tenderness; Acute pancreatitis; Hyperlipidemia, unspecified. Bed requested for Telemetry/MedSurg (Inpatient). Status is Inpatient Admission. Condition is Stable. Problem is new. Symptoms have improved. bb 03:31 01:42 10/30/2019 15:39 Hospitalization Ordered by Wilton Skinner for Inpatient bb Admission. Preliminary diagnosis is Abdominal tenderness; Acute pancreatitis; Hyperlipidemia, unspecified. Bed requested for Telemetry/MedSurg (Inpatient). Status is Inpatient Admission. Condition is Stable. Problem is new. Symptoms have improved. rr5 03:31 03:31 10/30/2019 15:39 Hospitalization Ordered by Wilton Skinner for Inpatient bb Admission. Preliminary diagnosis is Abdominal tenderness; Acute pancreatitis; Hyperlipidemia, unspecified. Bed requested for [facility] ER HOLD. Status is Inpatient Admission. Condition is Stable. Problem is new. Symptoms have improved. bb 03:32 03:31 10/30/2019 15:39 Hospitalization Ordered by Wilton Skinner for Inpatient bb Admission. Preliminary diagnosis is Abdominal tenderness; Acute pancreatitis; Hyperlipidemia, unspecified. Bed requested for [facility] ER HOLD. Status is Inpatient Admission. Condition is Stable. Problem is new. Symptoms have improved. bb 17:38 03:32 10/30/2019 15:39 Hospitalization Ordered by Wilton Skinner for Inpatient jd3 Admission. Preliminary diagnosis is Abdominal tenderness; Acute pancreatitis; Hyperlipidemia, unspecified. Bed requested for [facility] ER HOLD. Status is Inpatient Admission. Condition is Stable. Problem is new. Symptoms have improved. bb
--- NOTE | 2019-10-30 15:40 | ER ---
Nurse's Notes [facility] Name: Javier Rutherford Age: 44 yrs Sex: Male : 1975 Arrival Date: 10/30/2019 Time: 12:52 Bed 15 Private MD: Diagnosis: Abdominal tenderness;Acute pancreatitis;Hyperlipidemia, unspecified Presentation: 10/29 13:03 Chief complaint: Patient states: "I have a history of pancreatitis and I am having a jd3 similar pain.". Coronavirus screen: At this time, the client does not indicate any symptoms associated with coronavirus-19. Ebola Screen: Patient negative for fever greater than or equal to 101.5 degrees Fahrenheit, and additional compatible Ebola Virus Disease symptoms. Initial Sepsis Screen: Does the patient meet any 2 criteria? No. Patient's initial sepsis screen is negative. Does the patient have a suspected source of infection? No. Patient's initial sepsis screen is negative. Risk Assessment: Do you want to hurt yourself or someone else? Patient reports no desire to harm self or others. Onset of symptoms was October 28, 2019. 13:03 Method Of Arrival: Ambulatory jd3 13:03 Acuity: HANY 3 jd3 Historical: - Allergies: 13:06 No Known Allergies; jd3 - Home Meds: 13:06 fenofibrate 200 mg Oral tab 1 cap once daily [Active]; metformin 1,000 mg Oral tab 1 jd3 tab 2 times per day [Active]; Tresiba FlexTouch U-100 subcutaneous [Active]; - PMHx: 13:06 Diabetes - NIDDM; fatty liver; Hyperlipidemia; Pancreatitis; jd3 - PSHx: 13:06 Hernia repair; Cholecystectomy; jd3 - Immunization history:: Adult Immunizations up to date. - Social history:: Smoking status: Patient denies any tobacco usage or history of. - Family history:: not pertinent. Screenin:10 Abuse screen: Denies threats or abuse. Nutritional screening: No deficits noted. rb1 Tuberculosis screening: No symptoms or risk factors identified. Fall Risk None identified. Assessment: 13:10 General: Appears uncomfortable, Behavior is anxious. General: Denies fever. Pain: rb1 Complains of pain in epigastric area Pain radiates to mid-sternal area Pain currently is 10 out of 10 on a pain scale. Neuro: Level of Consciousness is awake, alert, obeys commands, Oriented to person, place, time, situation. Cardiovascular: Capillary refill < 3 seconds. Respiratory: Airway is patent Respiratory effort is even, unlabored, Respiratory pattern is regular, symmetrical. GI: Bowel sounds present X 4 quads. Abd is soft Patient currently denies diarrhea, nausea, vomiting. : No signs and/or symptoms were reported regarding the genitourinary system. Derm: Skin is pink, warm \\T\\ dry. 14:09 Reassessment: Patient appears in no apparent distress at this time. Patient and/or rb1 family updated on plan of care and expected duration. Pain level reassessed. Patient is alert, oriented x 3, equal unlabored respirations, skin warm/dry/pink. 15:00 Reassessment: Patient appears in no apparent distress at this time. No changes from rb1 previously documented assessment. 16:00 Reassessment: Patient appears in no apparent distress at this time. Patient and/or rb1 family updated on plan of care and expected duration. Pain level reassessed. Patient is alert, oriented x 3, equal unlabored respirations, skin warm/dry/pink. 16:30 Reassessment: pt. is resting with eyes closed, respirations even, unlabored. Call light rb1 within reach. 17:30 Reassessment: Patient appears in no apparent distress at this time. Patient and/or rb1 family updated on plan of care and expected duration. Pain level reassessed. Patient is alert, oriented x 3, equal unlabored respirations, skin warm/dry/pink. 18:30 Reassessment: Patient appears in no apparent distress at this time. No changes from rb1 previously documented assessment. 18:50 Reassessment: Patient is alert, oriented x 3, equal unlabored respirations, skin aa5 warm/dry/pink. Pt requesting pain medication, MD was notified. . 18:50 General: Appears uncomfortable. aa5 19:20 General: Appears in no apparent distress. uncomfortable, Behavior is calm, cooperative, rr5 appropriate for age. 19:20 Pain: Complains of pain in abdomen Pain radiates to chest and mid-sternal area Pain rr5 currently is 10 out of 10 on a pain scale. Quality of pain is described as aching, Pain began gradually, Is intermittent. Neuro: Level of Consciousness is awake, alert, obeys commands, Oriented to person, place, time, situation. Cardiovascular: Capillary refill < 3 seconds Patient's skin is warm and dry. Respiratory: Airway is patent Respiratory effort is even, unlabored, Respiratory pattern is regular, symmetrical. GI: Abdomen is round non-distended, Abd is soft Reports upper abdominal pain, nausea, vomiting. : No signs and/or symptoms were reported regarding the genitourinary system. EENT: No signs and/or symptoms were reported regarding the EENT system. Derm: Skin is intact, is healthy with good turgor, Skin temperature is warm. Musculoskeletal: Circulation, motion, and sensation intact. Capillary refill < 3 seconds. 20:26 Reassessment: Patient appears in no apparent distress at this time. Patient is alert, rr5 oriented x 3, equal unlabored respirations, skin warm/dry/pink. Patient states feeling better. Patient states symptoms have improved. 22:00 Reassessment: Patient appears in no apparent distress at this time. resting eyes closed rr5 breathing spontaneously at room air on right side lying position. awaiting for room assignment. 23:00 Reassessment: Patient appears in no apparent distress at this time. Patient is alert, rr5 oriented x 3, equal unlabored respirations, skin warm/dry/pink. 10/30 00:00 Reassessment: Patient appears in no apparent distress at this time. Patient is alert, rr5 oriented x 3, equal unlabored respirations, skin warm/dry/pink. watching TV no complaints made. 01:00 Reassessment: complaint of abdominal pain. pain score 8/10 morphine given as PRN rr5 medication signed in [facility]. Vital Signs: 10/29 13:05 BP 149 / 95; Pulse 79; Resp 20 S; Temp 98.1(O); Pulse Ox 99% on R/A; Weight 99.79 kg jd3 (R); Height 5 ft. 8 in. (172.72 cm) (R); Pain 10/10; 14:00 BP 143 / 76; Pulse 79; Resp 16; Pulse Ox 95% ; rb1 15:00 BP 155 / 90; Pulse 95; Resp 17; Pulse Ox 97% ; rb1 16:36 BP 137 / 83; Pulse 86; Resp 16; Pulse Ox 96% ; rb1 17:30 BP 135 / 86; Pulse 88; Resp 17; Pulse Ox 99% ; rb1 18:30 BP 142 / 89; Pulse 87; Resp 16; Pulse Ox 99% on R/A; rb1 19:20 BP 141 / 75; Pulse 80; Resp 17; Temp 98; Pulse Ox 99% ; Pain 8/10; rr5 20:26 BP 136 / 81; Pulse 75; Resp 16; Pulse Ox 99% on R/A; Pain 4/10; rr5 21:20 BP 151 / 70; Pulse 82; Resp 19; Pulse Ox 98% on R/A; rr5 22:00 BP 144 / 92; Pulse 70; Resp 19; Pulse Ox 98% ; rr5 23:00 BP 132 / 80; Pulse 79; Resp 16; Pulse Ox 99% ; rr5 10/30 00:00 BP 133 / 76; Pulse 95; Resp 15; Pulse Ox 98% ; rr5 00:59 BP 129 / 88; Pulse 100; Resp 19; Temp 99.5; Pulse Ox 99% ; Pain 8/10; rr5 10/29 13:05 Body Mass Index 33.45 (99.79 kg, 172.72 cm) jd3 ED Course: 10/29 12:52 Patient arrived in ED. ag5 13:05 Triage completed. jd3 13:06 Arm band placed on. jd3 13:09 Bret Lopez MD is Attending Physician. erlin 13:10 Patient has correct armband on for positive identification. Bed in low position. Call rb1 light in reach. Side rails up X 1. wholesale buyer on. Pulse ox on. NIBP on. Warm blanket given. 13:18 Laura Lott, RN is Primary Nurse. rb1 13:27 XRAY Chest (1 view) In Process Unspecified. EDMS 13:42 EKG done, by ED staff, reviewed by Bret Lopez MD. Initial lab(s) drawn, by [facility], sent jb1 to lab. Inserted saline lock: 22 gauge in left antecubital area, using aseptic technique. Blood collected. 15:35 Wilton Skinner is Hospitalizing Provider. erlin 15:50 CT Abd/Pelvis - IV Contrast Only In Process Unspecified. EDMS 15:55 CT completed. Patient tolerated procedure well. Patient moved back from CT. bq 10/30 01:05 No provider procedures requiring assistance completed. Patient admitted, IV remains in rr5 place. intact, No redness/swelling at site. 03:31 Attending Physician role handed off by Bret Lopez MD bb 03:31 Primary Nurse role handed off by Laura Lott RN bb 07:07 Kaiden Golden, ARACELI is Primary Nurse. jl7 Administered Medications: 10/29 13:40 Drug: Zofran (Ondansetron) 4 mg Route: IVP; Site: left antecubital; rb1 13:40 Drug: NS 0.9% 1000 ml Route: IV; Rate: 1 bolus; Site: left antecubital; rb1 13:40 Drug: Pepcid 20 mg Route: IVP; Site: left antecubital; rb1 13:41 Drug: Dilaudid 1 mg Route: IVP; Site: left antecubital; rb1 13:54 Follow up: Response: No adverse reaction; Pain is decreased rb1 13:41 Drug: NS 0.9% 1000 ml Route: IV; Rate: 1 bolus; Site: left antecubital; rb1 15:05 Drug: Dilaudid 1 mg Route: IVP; Site: left antecubital; bp 15:05 Drug: NS 0.9% 1000 ml Route: IV; Rate: 1 bolus; Site: left antecubital; bp 16:00 Drug: NS 0.9% 1000 ml Route: IV; Rate: 1 bolus; Site: left antecubital; bp 19:07 Drug: Zofran (Ondansetron) 4 mg Route: IVP; Site: left antecubital; aa5 20:20 Follow up: Response: No adverse reaction rr5 19:07 Drug: NS 0.9% 1000 ml Route: IV; Rate: 125 ml/hr; Site: left antecubital; aa5 10/30 01:06 Follow up: Response: No adverse reaction; IV Status: Completed infusion; IV Intake: rr5 1000ml 10/29 19:09 Drug: Dilaudid 1 mg Route: IVP; Site: left antecubital; aa5 20:40 Follow up: Response: No adverse reaction; Pain is decreased; RASS: Alert and Calm (0) rr5 Intake: 21:00 PO: 0ml; Total: 0ml. rr5 10/30 01:04 PO: 0ml; Total: 0ml. rr5 01:06 IV: 1000ml; Total: 1000ml. rr5 Output: 10/29 21:00 Urine: 600ml (Voided); Total: 600ml. rr5 10/30 01:04 Urine: 700ml (Voided); Total: 1300ml. rr5 Outcome: 10/29 15:39 Decision to Hospitalize by Provider. erlin 10/30 01:05 Admitted to Tele accompanied by tech, room 430, with chart, Report called to mary rr5 Condition: stable Instructed on the need for admit. 01:42 Patient left the ED. rr5 17:38 Patient left the ED. jd3 Signatures: Dispatcher [employer] EDMS Fly Cherry jb1 Bret Lopez MD MD cha Quilty, Betty bq Ballard, Brenda RN RN bb Diana Hay, RN RN aa5 Laura Lott, RN RN rb1 Kaiden Golden RN RN jl7 Stephen Fuentes RN RN jd3 Severo Galvan RN RN bp Roque, Raymond, RN RN rr5 Emilio Carver [facility]
[2019-10-30 15:54] LABS: HDL Cholesterol 37 mg/dL (40-60)
[2019-10-30 16:07] LABS: LDL, Direct 160 mg/dL (100-129)
--- NOTE | 2019-10-30 16:17 | RAD REPORT ---
EXAM DESCRIPTION: CT - Abdomen Pelvis W Contrast - 10/30/2019 3:49 pm CLINICAL HISTORY: Abdominal pain COMPARISON: July 2019 TECHNIQUE: Computed axial tomography of the abdomen pelvis was obtained. 100 cc Isovue-300 was admin istered intravenously. Oral contrast was not requested which limits evaluation of bowel. All CT scans are performed using dose optimization technique as appropriate and may include automated exposure control or mA/KV adjustment according to patient size. FINDINGS: Fatty liver. The spleen, adrenals and kidneys unremarkable Pancreatic head is enlarged and inhomogeneous. It contains small calcification. Moderate stranding is present adjacent to the pancreas. No pseudocyst. Cholecystectomy There is no evidence of diverticulitis. A normal appendix Mild bibasilar atelectasis IMPRESSION: Moderate pancreatitis
--- NOTE | 2019-10-30 16:18 | RAD REPORT ---
EXAM DESCRIPTION: Ankita Single View10/30/2019 1:26 pm CLINICAL HISTORY: Abdominal pain COMPARISON: July 2019 FINDINGS: Mild bibasilar atelectasis. Upper lobes are clear The heart is normal size
--- NOTE | 2019-10-30 16:56 | P.HP ---
Certification for Inpatient Patient admitted to: Inpatient With expected LOS: >2 Midnights Practitioner: I am a practitioner with admitting privileges, knowledge of patient current condition, hospital course, and medical plan of care. Services: Services provided to patient in accordance with Admission requirements found in Title 42 Section 412.3 of the Code of Federal Regulations Patient History Date of Service: 10/30/19 Reason for admission: Abdominal pain History of Present Illness: 44-year-old gentleman with a history of recurrent pancreatitis, history of hypertriglyceridemia, diabetes mellitus and fatty liver presented emergency department with a complaint of abdominal pain. Patient reports an 8/10 abdominal pain, associated with nausea, no vomiting. Patient denied any diarrhea. He also denied any fever. Blood work in the ED showed a lipase of 3143, triglyceride level of 3942. CT abdomen and pelvis shows acute pancreatitis. The patient has a history of cholecystectomy. He is admitted for further management. Allergies No Known Allergies Allergy (Verified 07/30/19 22:55) Home Medications: Insulin Degludec [Tresiba Flextouch U-100] 30 units SQ DAILY 03/29/18 Metformin HCl [Glucophage] 1,000 mg PO BIDWM 03/29/18 Pantoprazole Sodium [Protonix] 20 mg PO DAILY 03/29/18 Docosahexanoic AC/Epa [Fish Oil 1,000 MG*] 2,000 mg PO BID #120 cap 02/10/19 Atorvastatin Calcium 40 mg PO BEDTIME #40 tablet 06/04/19 Metoclopramide HCl [Reglan] 10 mg PO SEECOM 07/30/19 Codeine/APAP [Tylenol #3*] 1 tab PO Q6HP PRN #30 tab 08/07/19 gemfibroziL [Lopid*] 600 mg PO BID #60 tab 08/07/19 - Past Medical/Surgical History Diabetic: Yes -: pancreatitis -: hyperlipidemia -: IDDM -: fatty liver -: Cholecystectomy -: Hernia sx -: vasectomy - Family History Sister -: Diabetes, Cancer Mother -: Diabetes Brother -: GI disease, Diabetes Notes: Pancreatitis - Social History Smoking Status: Never smoker Alcohol use: No CD- Drugs: No Caffeine use: Yes Review of Systems Other: Patient denies any fever. Except as documented, all other systems reviewed and negative. Physical Examination - Physical Exam General: Alert, In no apparent distress, Oriented x3 HEENT: PERRLA, Mucous membr. moist/pink, Sclerae nonicteric Neck: Supple, JVD not distended, No Thyromegaly Respiratory: Clear to auscultation bilaterally, Normal air movement Cardiovascular: No edema, Normal S1 S2 Capillary refill: <2 Seconds Gastrointestinal: Normal bowel sounds, Non-distended, No masses, Tenderness (Epigastrium) Musculoskeletal: No swelling, No erythema Integumentary: No rashes, No tenderness/swelling Neurological: Normal strength at 5/5 x4 extr, Cranial nerves 3-12 intact - Studies Laboratory Data (last 24 hrs) 10/30/19 14:39: Sodium 138, Potassium 5.4 H, BUN 12, Creatinine 0.81, Glucose 260 H, Magnesium 2.0, Total Bilirubin 0.9, AST 65 H, ALT 55, Alkaline Phosphatase 88, Triglycerides 3921 H, Cholesterol 400 H, LDL Cholesterol Direct 160 H, HDL Cholesterol 37 L, Cholesterol/HDL Ratio 10.81, Lipase 3143 H 10/30/19 13:35: PT 11.9, INR 1.01 10/30/19 13:35: WBC 9.4, Hgb 13.5 L, Hct 41.4, Plt Count 224 Assessment and Plan - Problems (Diagnosis) (1) Acute pancreatitis Onset Date: 03/21/14 Current Visit: No Status: Acute Qualifiers: Pancreatitis type: other Acute pancreatitis complication: no infection or necrosis Qualified Code(s): K85.80 - Other acute pancreatitis without necrosis or infection (2) Hypertriglyceridemia Onset Date: 11/14/16 Current Visit: No Status: Chronic (3) Diabetes mellitus Onset Date: 11/14/16 Current Visit: No Status: Chronic Qualifiers: Diabetes mellitus complication status: with hyperglycemia (4) Fatty liver Onset Date: 11/14/16 Current Visit: No Status: Chronic (5) Obesity (BMI 30-39.9) Onset Date: 11/14/16 Current Visit: No Status: Chronic - Plan Acute pancreatitis is likely caused by hypertriglyceridemia. Admit the patient to the medical floor. Supportive measures with aggressive IV hydration. Start insulin drip to treat hypertriglyceridemia. Pain management as needed Serial lipase Serial lipid profile. - Advance Directives Does patient have a Living Will: No Does patient have a Durable POA for Healthcare: No
[2019-10-30 20:14] LABS: Urine RBC <5 /HPF (NONE SEEN)
[2019-10-30 20:15] LABS: Urine Bacteria <20 /HPF (NONE SEEN); Urine Culture Reflex Order NOT NEEDED
[2019-10-30 20:47] LABS: Urine Blood NEGATIVE (NEG); Urine Glucose 2+ (NEG); Urine Protein NEGATIVE (NEG); Urine pH 5.5 (5.0-7.0)
[2019-10-31] MEDS ORDERED: MORPHINE 2 MG/ML SYR IV PRN ×2 (00:49→00:51)
[2019-10-31] MEDS ORDERED: GLUCAGON 1 MG/VIAL IM PRN (00:49)
[2019-10-31] MEDS ORDERED: ONDANSETRON 4 MG/2 ML VIAL IV PRN (00:49)
[2019-10-31] MEDS ORDERED: NA CHLORIDE 0.9% 1,000 ML IV SCH (00:49)
[2019-10-31] MEDS ORDERED: D50W 25 GM/50 ML SYRINGE/VIAL IV PRN (00:49)
[2019-10-31 02:13] VITALS: BMI 33.4
[2019-10-31 03:43] LABS: Urine Appearance CLEAR; Urine Bilirubin NEGATIVE (NEG); Urine Blood NEGATIVE (NEG); Urine Color YELLOW; Urine Glucose 3+ (NEG); Urine Protein NEGATIVE (NEG); Urine Specific Gravity >=1.030 (1.005-1.030); Urine Urobilinogen 0.2 mg/dL (0.2-1.0)
[2019-10-31 03:45] LABS: Urine Microscopic Reflex NO UMIC
[2019-10-31] MEDS ORDERED: D5 0.45 NS 1,000 ML IV SCH (04:00)
[2019-10-31] MEDS: D5 0.45 NS 1,000 ML IV SCH ×3 (04:00→18:01)
[2019-10-31] MEDS ORDERED: ONDANSETRON 4 MG/2 ML VIAL ONE (04:08)
[2019-10-31] MEDS ORDERED: HYDROMORPHONE HCL 1 MG/ML INJ ONE ×4 (04:08→22:17)
[2019-10-31] MEDS ORDERED: INSULIN -REGULAR HUMAN 50 UNIT/0.5 ML ML ONE (04:10)
[2019-10-31] MEDS ORDERED: D5 0.45 NS 1,000 ML IV ONE ×3 (04:10→17:57)
[2019-10-31] MEDS: HYDROMORPHONE HCL 1 MG/ML INJ IV PRN ×5 (04:10→22:07)
[2019-10-31] MEDS ORDERED: NA CHLORIDE 0.9% 100 ML IV ONE (04:10)
[2019-10-31] MEDS: INSULIN -REGULAR HUMAN 100 UNIT in NA CHLORIDE 0.9% 100 ML IV SCH (04:30)
[2019-10-31 05:49] LABS: Absolute Lymphocytes (CBC) 1.2 K/uL (0.7-4.9); Basophils % 0.2 % (0-1.3); Hematocrit 35.4 % (39.6-49.0); Lymphocytes % 13.5 % (15.3-44.8); MPV 9.6 fL (7.6-11.3)
[2019-10-31 06:18] LABS: Protime INR 1.06
[2019-10-31 07:43] LABS: HDL Cholesterol 37 mg/dL (40-60)
[2019-10-31 07:57] LABS: LDL, Direct 88 mg/dL (100-129)
[2019-10-31 08:00] LABS: ALT/SGPT 32 U/L (12-78); AST/SGOT 17 U/L (15-37); Albumin 2.9 g/dL (3.4-5.0); Alkaline Phosphatase 70 U/L (45-117); BUN Blood Urea Nitrogen 9 mg/dL (7-18); Bicarbonate 20 mmol/L (21-32); Bilirubin Total 0.8 mg/dL (0.2-1.0); Glucose Level 243 mg/dL (74-106); Magnesium 1.9 mg/dL (1.8-2.4); Phosphorus 3.4 mg/dL (2.5-4.9); Potassium 3.5 mmol/L (3.5-5.1); Sodium Level 138 mmol/L (136-145)
[2019-10-31] MEDS: ENOXAPARIN 40 MG/0.4 ML SQ SCH (09:00)
[2019-10-31] MEDS ORDERED: HYDROMORPHONE HCL 0.5 MG/0.5 ML INJ ONE (09:16)
[2019-10-31] MEDS ORDERED: ENOXAPARIN 40 MG/0.4 ML SQ ONE (09:16)
--- NOTE | 2019-10-31 14:15 | P.PN ---
Subjective Date of Service: 10/31/19 Chief Complaint: Abdominal pain Patient reports feeling better today. Triglyceride level has trended down. Physical Examination - Vital Signs Temperature: 98.2 F Blood Pressure: 114/73 Pulse: 85 Respirations: 14 Pulse Ox (%): 95 - Physical Exam General: Alert, In no apparent distress HEENT: Mucous membr. moist/pink Neck: JVD not distended Respiratory: Clear to auscultation bilaterally, Normal air movement Cardiovascular: No edema, Regular rate/rhythm, Normal S1 S2 Gastrointestinal: Normal bowel sounds, Non-distended, Tenderness (Epigastrium) Musculoskeletal: No swelling, No erythema Integumentary: No rashes Neurological: Other (Nonfocal.) - Studies Laboratory Data (last 24 hrs) 10/30/19 14:39: Sodium 138, Potassium 5.4 H, BUN 12, Creatinine 0.81, Glucose 260 H, Magnesium 2.0, Total Bilirubin 0.9, AST 65 H, ALT 55, Alkaline Phos phatase 88, Triglycerides 3921 H, Cholesterol 400 H, LDL Cholesterol Direct 160 H, HDL Cholesterol 37 L, Cholesterol/HDL Ratio 10.81, Lipase 3143 H Assessment And Plan - Current Problems (Diagnosis) (1) Acute pancreatitis Onset Date: 03/21/14 Current Visit: No Status: Acute Qualifiers: Pancreatitis type: other Acute pancreatitis complication: no infection or necrosis Qualified Code(s): K85.80 - Other acute pancreatitis without necrosis or infection (2) Hypertriglyceridemia Onset Date: 11/14/16 Current Visit: No Status: Chronic (3) Diabetes mellitus Onset Date: 11/14/16 Current Visit: No Status: Chronic Qualifiers: Diabetes mellitus complication status: with hyperglycemia (4) Fatty liver Onset Date: 11/14/16 Current Visit: No Status: Chronic (5) Obesity (BMI 30-39.9) Onset Date: 11/14/16 Current Visit: No Status: Chronic - Plan Continue IV hydration and insulin drip. Keep blood glucose level 100-150. Pain management as needed Empiric IV Rocephin. Serial lipase Serial lipid profile.
[2019-11-01] MEDS: D5 0.45 NS 1,000 ML IV SCH ×3 (00:53→14:14)
[2019-11-01] MEDS ORDERED: D5 0.45 NS 1,000 ML IV ONE ×2 (01:03→14:04)
[2019-11-01] MEDS: HYDROMORPHONE HCL 1 MG/ML INJ IV PRN ×5 (02:05→22:08)
[2019-11-01] MEDS ORDERED: HYDROMORPHONE HCL 1 MG/ML INJ ONE ×5 (02:13→22:18)
[2019-11-01 06:01] LABS: LDL, Direct 84 mg/dL (100-129)
[2019-11-01 06:10] LABS: BUN Blood Urea Nitrogen 5 mg/dL (7-18); Bicarbonate 24 mmol/L (21-32); Glucose Level 201 mg/dL (74-106); Lipase 310 U/L (73-393); Sodium Level 138 mmol/L (136-145)
[2019-11-01 06:16] LABS: Magnesium 1.8 mg/dL (1.8-2.4)
[2019-11-01 06:17] LABS: Potassium 3.5 mmol/L (3.5-5.1)
[2019-11-01] MEDS ORDERED: KCL 20 MEQ/100 mL IVPB 20 MEQ/100 ML BAG IV SCH ×2 (08:00→10:00)
[2019-11-01] MEDS ORDERED: MAGNESIUM SULFATE 1 gm IVPB 1 GM/100 ML BAG IV ONE ×3 (08:00→09:00)
[2019-11-01] MEDS: ENOXAPARIN 40 MG/0.4 ML SQ SCH (08:03)
[2019-11-01] MEDS: CEFTRIAXONE/SWI 1gm 1 GM/10 ML SYR IVP SCH (08:03)
[2019-11-01] MEDS ORDERED: KCL 20 MEQ/100 mL IVPB 20 MEQ/100 ML BAG IV ONE (08:06)
[2019-11-01] MEDS ORDERED: ENOXAPARIN 40 MG/0.4 ML SQ ONE (08:06)
[2019-11-01] MEDS ORDERED: CEFTRIAXONE/SWI 1gm 1 GM/10 ML SYR ONE (08:06)
[2019-11-01] MEDS ORDERED: D5 0.45 NS 0 ML IV ONE (08:09)
[2019-11-01] MEDS ORDERED: NA CHLORIDE 0.9% 500 ML IV ONE (11:25)
--- NOTE | 2019-11-01 11:31 | P.PN ---
Subjective Date of Service: 11/01/19 Subjective: Improving (Patient is doing well with minimal pain; still with epigastric pain; start ice chips) Review of Systems 10-point ROS is otherwise unremarkable Physical Examination - Vital Signs Temperature: 98.3 F Blood Pressure: 122/82 Pulse: 86 Respirations: 14 Pulse Ox (%): 97 - Physical Exam General: Alert, In no apparent distress, Oriented x3 Respiratory: Clear to auscultation bilaterally, Normal air movement Cardiovascular: Regular rate/rhythm, Normal S1 S2, No murmurs Gastrointestinal: Normal bowel sounds, Soft and benign, Non-distended, No rebound, No guarding, Tenderness Musculoskeletal: No clubbing, No swelling, No tenderness Neurological: Normal strength at 5/5 x4 extr, Sensation intact, Cranial nerves 3-12 intact - Studies Medications List Reviewed: Yes Assessment & Plan - Problems (Diagnosis) (1) Noncompliance Current Visit: Yes Status: Acute (2) Acute pancreatitis Onset Date: 03/21/14 Current Visit: No Status: Acute Qualifiers: Pancreatitis type: other Acute pancreatitis complication: no infection or necrosis Qualified Code(s): K85.80 - Other acute pancreatitis without necrosis or infection (3) hypertriglyceridemia induce pancreatitis Onset Date: 07/08/17 Current Visit: No Status: Acute (4) Diabetes mellitus Onset Date: 11/14/16 Current Visit: No Status: Chronic Qualifiers: Diabetes mellitus complication status: with hyperglycemia (5) Obesity (BMI 30-39.9) Onset Date: 11/14/16 Current Visit: No Status: Chronic - Plan PLAN: 1. IVFs 2. Pain control 3. Monitor lipase 4. Monitor triglycerides 5. If tolerates ice chips, then continue with advancing diet 6. GI/DVT prophylaxis Discharge Plan: Home Plan to discharge in: Greater than 2 days - Advance Directives Does patient have a Living Will: No Does patient have a Durable POA for Healthcare: No - Code Status/Comfort Care Code Status Assessed: Yes Code Status: Full Code Critical Care: No Time Spent Managing PTS Care (In Minutes): 30
[2019-11-01] MEDS ORDERED: NA CHLORIDE 0.9% 1,000 ML ONE (12:29)
[2019-11-01] MEDS: INSULIN -REGULAR HUMAN 100 UNIT in NA CHLORIDE 0.9% 100 ML IV SCH (18:04)
[2019-11-01] MEDS: DOCOSAHEXANOIC AC/EPA 1000 MG PO SCH ×2 (20:27→20:38)
[2019-11-01] MEDS: gemfibroziL 600 MG TAB PO SCH (20:28)
[2019-11-02] MEDS: D5 0.45 NS 1,000 ML IV SCH ×5 (00:06→22:05)
[2019-11-02] MEDS ORDERED: D5 0.45 NS 1,000 ML IV ONE ×3 (00:16→14:53)
[2019-11-02 04:48] LABS: Absolute Lymphocytes (CBC) 1.4 K/uL (0.7-4.9); Basophils % 0.5 % (0-1.3); Hematocrit 31.9 % (39.6-49.0); Lymphocytes % 36.3 % (15.3-44.8); RBC Red Blood Cell Count 4.03 M/uL (4.33-5.43)
[2019-11-02 05:10] LABS: ALT/SGPT 83 U/L (12-78); AST/SGOT 51 U/L (15-37); Albumin 2.7 g/dL (3.4-5.0); Alkaline Phosphatase 88 U/L (45-117); BUN Blood Urea Nitrogen 3 mg/dL (7-18); Bicarbonate 27 mmol/L (21-32); Bilirubin Total 0.5 mg/dL (0.2-1.0); Glucose Level 173 mg/dL (74-106); Lipase 207 U/L (73-393); Magnesium 2.1 mg/dL (1.8-2.4); Potassium 3.6 mmol/L (3.5-5.1); Sodium Level 140 mmol/L (136-145)
[2019-11-02 05:22] LABS: LDL, Direct 117 mg/dL (100-129)
[2019-11-02] MEDS ORDERED: ENOXAPARIN 40 MG/0.4 ML SQ ONE (08:41)
[2019-11-02] MEDS ORDERED: CEFTRIAXONE/SWI 1gm 1 GM/10 ML SYR ONE (08:42)
[2019-11-02] MEDS ORDERED: KCL 20 MEQ/100 mL IVPB 20 MEQ/100 ML BAG IV ONE (08:42)
[2019-11-02] MEDS: DOCOSAHEXANOIC AC/EPA 1000 MG PO SCH ×2 (08:45→09:00)
[2019-11-02] MEDS: CEFTRIAXONE/SWI 1gm 1 GM/10 ML SYR IVP SCH (08:46)
[2019-11-02] MEDS: ENOXAPARIN 40 MG/0.4 ML SQ SCH (08:46)
[2019-11-02] MEDS: gemfibroziL 600 MG TAB PO SCH ×2 (08:57→22:05)
[2019-11-02] MEDS ORDERED: KCL 20 MEQ/100 mL IVPB 20 MEQ/100 ML BAG IV SCH (09:00)
[2019-11-02] MEDS: HYDROMORPHONE HCL 1 MG/ML INJ IV PRN ×3 (11:10→22:15)
[2019-11-02] MEDS ORDERED: HYDROMORPHONE HCL 1 MG/ML INJ ONE ×2 (11:20→16:14)
[2019-11-02] MEDS ORDERED: GLUCAGON 1 MG/VIAL IM PRN (17:05)
[2019-11-02] MEDS ORDERED: D50W 25 GM/50 ML SYRINGE/VIAL IV PRN (17:05)
[2019-11-02] MEDS: INSULIN -REGULAR HUMAN 50 UNIT/0.5 ML ML SQ SCH (22:06)
[2019-11-03] MEDS: D5 0.45 NS 1,000 ML IV SCH ×2 (04:24→12:00)
[2019-11-03 05:33] LABS: Potassium 3.4 mmol/L (3.5-5.1)
[2019-11-03] MEDS ORDERED: POTASSIUM 25 MEQ EFFERV TAB PO ONE (07:00)
[2019-11-03] MEDS: INSULIN -REGULAR HUMAN 50 UNIT/0.5 ML ML SQ SCH ×2 (08:06→12:08)
[2019-11-03] MEDS: gemfibroziL 600 MG TAB PO SCH (08:07)
[2019-11-03] MEDS: ENOXAPARIN 40 MG/0.4 ML SQ SCH (08:07)
[2019-11-03] MEDS: CEFTRIAXONE/SWI 1gm 1 GM/10 ML SYR IVP SCH (08:07)
[2019-11-03 09:01] VITALS: O2SAT 97
[2019-11-05 09:44] VITALS: BP 122/82; TEMP 98.3
--- NOTE | 2019-11-05 09:45 | P.PN ---
Subjective Date of Service: 11/02/19 Advanced diet as tolerated. If patient does well with his diet today then anticipate discharge home in the next 24 hr. Review of Systems 10-point ROS is otherwise unremarkable Physical Examination - Vital Signs Temperature: 98.3 F Blood Pressure: 122/82 Pulse: 86 Respirations: 14 Pulse Ox (%): 97 - Physical Exam General: Alert, In no apparent distress, Oriented x3 Respiratory: Clear to auscultation bilaterally, Normal air movement Cardiovascular: Regular rate/rhythm, Normal S1 S2, No murmurs Gastrointestinal: Normal bowel sounds, Soft and benign, Non-distended, Tenderness Musculoskeletal: No clubbing, No swelling, No tenderness Neurological: Sensation intact, Cranial nerves 3-12 intact - Studies Medications List Reviewed: Yes Assessment & Plan - Problems (Diagnosis) (1) Noncompliance Status: Acute (2) Acute pancreatitis Onset Date: 03/21/14 Status: Acute Qualifiers: Pancreatitis type: other Acute pancreatitis complication: no infection or necrosis Qualified Code(s): K85.80 - Other acute pancreatitis without necrosis or infection (3) hypertriglyceridemia induce pancreatitis Onset Date: 07/08/17 Status: Acute (4) Diabetes mellitus Onset Date: 11/14/16 Status: Chronic Qualifiers: Diabetes mellitus complication status: with hyperglycemia (5) Obesity (BMI 30-39.9) Onset Date: 11/14/16 Status: Chronic - Plan PLAN: 1. IVFs; start diet and advance as tolerated; low-fat diet 2. Pain control-wean off IV pain medication 3. Monitor lipase; has normalize 4. Monitor triglycerides; continues to improve 5. If tolerates ice chips, then continue with advancing diet 6. GI/DVT prophylaxis Discharge Plan: Home Plan to discharge in: 24 Hours - Advance Directives Does patient have a Living Will: No Does patient have a Durable POA for Healthcare: No - Code Status/Comfort Care Code Status: Full Code Critical Care: No Time Spent Managing PTS Care (In Minutes): 30
--- NOTE | 2019-11-05 09:47 | P.DS ---
Discharge Date: 11/03/19 Disposition: ROUTINE DISCHARGE Discharge Condition: GOOD Reason for Admission: Abdominal pain - Problems (1) Noncompliance Status: Acute (2) Acute pancreatitis Onset Date: 03/21/14 Status: Acute Qualifiers: Pancreatitis type: other Acute pancreatitis complication: no infection or n ecrosis Qualified Code(s): K85.80 - Other acute pancreatitis without necrosis or infection (3) hypertriglyceridemia induce pancreatitis Onset Date: 07/08/17 Status: Acute (4) Diabetes mellitus Onset Date: 11/14/16 Status: Chronic Qualifiers: Diabetes mellitus complication status: with hyperglycemia (5) Obesity (BMI 30-39.9) Onset Date: 11/14/16 Status: Chronic Brief History of Present Illness: Patient is a 44-year-old gentleman who came to the hospital with acute pancreatitis secondary to hypertriglyceridemia. Patient is very noncompliant with taking his medications. He comes in recurrent leave with similar issues. Unfortunately, he does not seem to understand the long-term consequences of not taking his medications. He was admitted for IV hydration and pain control. Hospital Course: Patient did well during hospital stay. Clinically, patient is doing better. He is tolerating his diet. We counseled him regarding taking his medications as prescribed. He also needs to be on a low-fat diet. At this time, patient is stable for discharge home. Vital Signs/Physical Exam: Temp Pulse Resp BP Pulse Ox 98.3 F 86 14 122/82 97 11/05/19 09:45 11/05/19 09:45 11/05/19 09:45 11/05/19 09:45 11/05/19 09:45 General: Alert, In no apparent distress, Oriented x3 Laboratory Data at Discharge: WBC 3.8 K/uL (4.3-10.9) L D 11/02/19 04:26 Hgb 11.1 g/dL (13.6-17.9) L 11/02/19 04:26 Hct 31.9 % (39.6-49.0) L 11/02/19 04:26 Plt Count 173 K/uL (152-406) 11/02/19 04:26 PT 12.5 SECONDS (9.5-12.5) 10/31/19 05:30 INR 1.06 10/31/19 05:30 Sodium 140 mmol/L (136-145) 11/02/19 04:26 Potassium 3.4 mmol/L (3.5-5.1) L 11/03/19 13:05 BUN 3 mg/dL (7-18) L 11/02/19 04:26 Creatinine 0.68 mg/dL (0.55-1.3) 11/02/19 04:26 Glucose 173 mg/dL (74-106) H 11/02/19 04:26 Phosphorus 3.0 mg/dL (2.5-4.9) 11/01/19 04:53 Magnesium Cancelled 11/02/19 05:00 Total Bilirubin 0.5 mg/dL (0.2-1.0) 11/02/19 04:26 AST 51 U/L (15-37) H 11/02/19 04:26 ALT 83 U/L (12-78) H 11/02/19 04:26 Alkaline Phosphatase 88 U/L (45-117) 11/02/19 04:26 Triglycerides 719 mg/dL (<150) H 11/03/19 03:48 Cholesterol 310 mg/dL (<200) H 10/31/19 06:23 LDL Cholesterol Direct 136 mg/dL (100-129) H 11/03/19 03:48 HDL Cholesterol 37 mg/dL (40-60) L 10/31/19 06:23 Cholesterol/HDL Ratio 8.38 10/31/19 06:23 Lipase 201 U/L (73-393) 11/03/19 03:48 Home Medications: Fenofibrate,Micronized [Fenofibrate] 1 tab PO DAILY 11/01/19 Insulin Aspart [Novolog Flexpen] 20 units SQ DAILY 11/01/19 Insulin Degludec [Tresiba Flextouch U-200] 30 units SQ BID 11/01/19 Lipase/Protease/Amylase [Sneha Catherine 12,000 Units Capsule] 1 each PO AC 11/01/19 gemfibroziL [Gemfibrozil] 1 tab PO BID 11/01/19 Patient Discharge Instructions: OK TO DC IV AND DC HOME. FOLLOW-UP WITH PRIMARY CARE PROVIDER IN 1-2 WEEKS. FOLLOW-UP WITH GI IN 1-2 WEEKS. RETURN TO THE ER IF symptoms worsen. CALL or TEXT DR. BLANCA AT [phone] IF ANY QUESTIONS REGARDING HOSPITAL STAY. PLEASE CALL THE FLOOR AT [phone] IF ANY MEDICATION OR NURSING QUESTIONS. Diet: AHA Activity: Fall precautions Followup: Jose Adorno MD [ASSOCIATE-ACTIVE - CAN ADMIT] - Time spent managing pt's care (in minutes): 25
== END 2019-11-03 13:40 | disposition home or self-care (01) | DRG 440 ==
LOC: ER 12:50 → UNDOADMIN 17:01 → ERHOLD 17:01 → 4TH 10-31 01:05 → ERHOLD 10-31 01:05 → UNDODISIN 10-31 04:19 → ERHOLD 10-31 04:52 → 2ND 11-02 17:42
PROVIDERS: ADMIT Internal Medicine; ATTEND Hospitalist
DX: K85.80 Other acute pancreatitis without necrosis or infection (principal); E78.5 Hyperlipidemia, unspecified; E78.1 Pure hyperglyceridemia; E11.65 Type 2 diabetes mellitus with hyperglycemia; K76.0 Fatty (change of) liver, not elsewhere classified; E66.9 Obesity, unspecified; Z68.30 Body mass index [BMI] 30.0-30.9, adult; Z91.19 Patient's noncompliance with other medical treatment and regimen; Z79.4 Long term (current) use of insulin; Z79.899 Other long term (current) drug therapy; Z90.49 Acquired absence of other specified parts of digestive tract; Z11.59 Encounter for screening for other viral diseases
CPT/HCPCS: 36415; 71045; 74177; 80048; 80053; 80061; 80076; 81003; 81015; 82947; 83690; 83735; 83880; 84100; 84132; 84478; 84484; 85025; 85610; 93005; 94760; 96361; 96374; 96375; 99285; J0696; J1170; J1650; J2270; J2405; J3475; J3480; J7030; J7799; Q9967; U0002

== ENCOUNTER 2019-11-22 08:12 | Inpatient (IN) | payer OTHER ==
--- OUTSIDE RECORDS SUMMARY | 2019-11-22 08:18 | XMS REPORT | Continuity of Care Document ---
:1975 Author Organization [facility] Address [address] [place] [address] Dr. Bain [address] [place] [id number] Care Team Providers Name Role Phone Unavailable Unavailable Unavailable Problems This patient has no known problems. Allergies, Adverse Reactions, Alerts This patient has no known allergies or adverse reactions. Medications This patient has no known medications. Procedures This patient has no known procedures. Results This patient has no known results.
[2019-11-22] MEDS ORDERED: MORPHINE 4 MG/ML SYR ONE (09:14)
[2019-11-22] MEDS ORDERED: NA CHLORIDE 0.9% 1,000 ML ONE ×2 (09:14→23:46)
[2019-11-22] MEDS ORDERED: ONDANSETRON 4 MG/2 ML VIAL ONE ×3 (09:14→19:01)
[2019-11-22] MEDS ORDERED: FAMOTIDINE 20 MG/2 ML VIAL IV ONE (09:14)
--- NOTE | 2019-11-22 09:41 | RAD REPORT ---
EXAM DESCRIPTION: CT - Abdomen Pelvis W Contrast - 11/22/2019 9:32 am CLINICAL HISTORY: Abdominal pain COMPARISON: October 2019 TECHNIQUE: Computed axial tomography of the abdomen pelvis was obtained. 100 cc Isovue-300 was admin istered intravenously. Oral contrast was not requested which limits evaluation of bowel. All CT scans are performed using dose optimization technique as appropriate and may include automated exposure control or mA/KV adjustment according to patient size. FINDINGS: Mild to moderate stranding adjacent to the pancreatic head. Punctate pancreatic calcificat ion. Cholecystectomy Fatty liver The spleen, adrenal and kidneys appear unremarkable. There is no evidence of diverticulitis. IMPRESSION: [id number] pancreatitis
[2019-11-22] MEDS ORDERED: HYDROMORPHONE HCL 1 MG/ML INJ ONE ×4 (10:13→23:15)
[2019-11-22 10:18] LABS: Absolute Lymphocytes (CBC) 1.1 K/uL (0.7-4.9); Basophils % 0.3 % (0-1.3); MPV 10.4 fL (7.6-11.3); RBC Red Blood Cell Count 4.57 M/uL (4.33-5.43)
[2019-11-22 11:39] LABS: ALT/SGPT 42 U/L (12-78); Albumin 3.7 g/dL (3.4-5.0); Alkaline Phosphatase 66 U/L (45-117); BUN Blood Urea Nitrogen 18 mg/dL (7-18); Bicarbonate 24 mmol/L (21-32); Bilirubin Direct < 0.1 mg/dL (0-0.2); Bilirubin Total 0.5 mg/dL (0.2-1.0); Glucose Level 310 mg/dL (74-106); Lipase 3750 U/L (73-393); Sodium Level 138 mmol/L (136-145); Troponin (Emerg Dept Use Only) < 0.02 ng/mL (0.0-0.045)
[2019-11-22 11:41] LABS: AST/SGOT 33 U/L (15-37)
[2019-11-22 11:44] LABS: Potassium 4.6 mmol/L (3.5-5.1)
--- NOTE | 2019-11-22 11:51 | ER ---
Nurse's Notes [facility] Name: Javier Rutherford Age: 44 yrs Sex: Male : 1975 Arrival Date: 11/22/2019 Time: 08:13 Bed 16 Private MD: Diagnosis: Acute pancreatitis Presentation: 11/21 08:21 Chief complaint: Patient states: i am having epigastric pain and belching that started tw2 this morning, denies n/v/d. Coronavirus screen: At this time, the client does not indicate any symptoms associated with coronavirus-19. Ebola Screen: Patient denies travel to an Ebola-affected area in the 21 days before illness onset. Initial Sepsis Screen: Does the patient meet any 2 criteria? No. Patient's initial sepsis screen is negative. Does the patient have a suspected source of infection? No. Patient's initial sepsis screen is negative. Risk Assessment: Do you want to hurt yourself or someone else? Patient reports no desire to harm self or others. Onset of symptoms was November 22, 2019. 08:21 Method Of Arrival: Ambulatory tw2 08:21 Acuity: HANY 3 tw2 Triage Assessment: 08: General: Appears uncomfortable, Behavior is cooperative, appropriate for age. Pain: tw2 Complains of pain in epigastric area. GI: Reports epigastric pain. Historical: - Allergies: 08:25 No Known Allergies; tw2 - Home Meds: 08:25 Tresiba FlexTouch U-100 subcutaneous [Active]; metformin 1,000 mg Oral tab 1 tab 2 tw2 times per day [Active]; fenofibrate 200 mg Oral tab 1 cap once daily [Active]; Novolog 100 unit/mL Sub-Q soln [Active]; atorvastatin oral oral [Active]; - PMHx: 08:25 Pancreatitis; Hyperlipidemia; fatty liver; Diabetes - NIDDM; tw2 - PSHx: 08:25 Cholecystectomy; Hernia repair; Vasectomy; tw2 - Immunization history:: Adult Immunizations. - Social history:: Smoking status: . Screenin: Abuse screen: Denies threats or abuse. Nutritional screening: No deficits noted. tw2 Tuberculosis screening: No symptoms or risk factors identified. Fall Risk None identified. Assessment: 08:22 General: Appears uncomfortable, Behavior is calm, cooperative, appropriate for age. tw2 Pain: Complains of pain in epigastric area. Neuro: Level of Consciousness is awake, alert, obeys commands, Oriented to person, place, time, situation. Cardiovascular: Heart tones S1 S2 Capillary refill < 3 seconds Patient's skin is warm and dry. Respiratory: Airway is patent Respiratory effort is even, unlabored, Respiratory pattern is regular, symmetrical, Breath sounds are clear bilaterally. GI: Abdomen is round non-distended, obese, Bowel sounds present X 4 quads. Reports epigastric pain. : No signs and/or symptoms were reported regarding the genitourinary system. EENT: No signs and/or symptoms were reported regarding the EENT system. Derm: No signs and/or symptoms reported regarding the dermatologic system. Musculoskeletal: Circulation, motion, and sensation intact. Range of motion: intact in all extremities. 09:30 Reassessment: No changes from previously documented assessment. Patient and/or family tw2 updated on plan of care and expected duration. Pain level reassessed. Patient is alert, oriented x 3, equal unlabored respirations, skin warm/dry/pink. 10:30 Reassessment: No changes from previously documented assessment. Patient and/or family tw2 updated on plan of care and expected duration. Pain level reassessed. Patient is alert, oriented x 3, equal unlabored respirations, skin warm/dry/pink. 11:30 Reassessment: No changes from previously documented assessment. Patient and/or family tw2 updated on plan of care and expected duration. Pain level reassessed. Patient is alert, oriented x 3, equal unlabored respirations, skin warm/dry/pink. 12:05 Reassessment: Patient and/or family updated on plan of care and expected duration. Pain tw2 level reassessed. Patient is alert, oriented x 3, equal unlabored respirations, skin warm/dry/pink. pt c/o nausea \T\ pain at this time, provider notified. Patient states symptoms have not improved. 13:00 Reassessment: No changes from previously documented assessment. Patient and/or family tw2 updated on plan of care and expected duration. Pain level reassessed. Patient is alert, oriented x 3, equal unlabored respirations, skin warm/dry/pink. feeling better at this moment. 13:56 Reassessment: No changes from previously documented assessment. Patient and/or family tw2 updated on plan of care and expected duration. Pain level reassessed. Patient is alert, oriented x 3, equal unlabored respirations, skin warm/dry/pink. Vital Signs: 08:21 BP 159 / 103; Pulse 74; Resp 17; Temp 97.8(O); Pulse Ox 98% on R/A; Weight 99.79 kg tw2 (R); Height 5 ft. 8 in. (172.72 cm); Pain 6/10; 09:16 BP 146 / 94; Pulse 78; Resp 16; Pulse Ox 98% on R/A; tw2 10:20 BP 124 / 72; Pulse 83; Resp 16; Pulse Ox 97% on R/A; tw2 11:20 BP 150 / 84; Pulse 75; Resp 17; Pulse Ox 96% on R/A; tw2 12:06 BP 154 / 88; Pulse 77; Resp 17; Pulse Ox 96% on R/A; Pain 9/10; tw2 13:56 BP 147 / 85; Pulse 76; Resp 17; Pulse Ox 96% on R/A; tw2 08:21 Body Mass Index 33.45 (99.79 kg, 172.72 cm) tw2 ED Course: 08:13 Patient arrived in ED. as 08:16 Johnnie Walls NP is PHCP. pm1 08:16 Bret Lopez MD is Attending Physician. pm1 08:20 Bed in low position. Call light in reach. Pulse ox on. NIBP on. tw2 08:21 Sharmila Man, ARACELI is Primary Nurse. tw2 08:22 Triage completed. tw2 08:23 Arm band placed on. tw2 09:08 Inserted saline lock: 20 gauge in left antecubital area, using aseptic technique. Blood tw2 collected. 09:32 CT Abd/Pelvis - IV Contrast Only In Process Unspecified. EDMS 09:48 EKG done, by ED staff, reviewed by Bret Lopez MD. 5 11:50 Wilton Skinner is Hospitalizing Provider. pm1 13:49 No provider procedures requiring assistance completed. Patient admitted, IV remains in tw2 place. Administered Medications: 09:08 Drug: morphine 4 mg Route: IVP; Site: left antecubital; tw2 09:52 Follow up: Response: No adverse reaction; Pain is unchanged, physician notified; RASS: tw2 Alert and Calm (0) 09:08 Drug: Zofran (Ondansetron) 4 mg Route: IVP; Site: left antecubital; tw2 09:52 Follow up: Response: No adverse reaction tw2 09:10 Drug: Pepcid 20 mg Route: IVP; Site: left antecubital; tw2 09:52 Follow up: Response: No adverse reaction; No change in condition tw2 09:10 Drug: NS 0.9% 1000 ml Route: IV; Rate: 1000 ml; Site: left antecubital; tw2 11:30 Follow up: Response: No adverse reaction; IV Status: Completed infusion; IV Intake: tw2 1000ml 12:06 Follow up: Response: No adverse reaction; IV Status: Completed infusion; IV Intake: tw2 1000ml 10:09 Drug: Zofran (Ondansetron) 4 mg Route: IVP; Site: left antecubital; tw2 10:44 Follow up: Response: No adverse reaction; Nausea is decreased tw2 10:10 Drug: Dilaudid 1 mg Route: IVP; Site: left antecubital; tw2 10:44 Follow up: Response: No adverse reaction; Pain is decreased; RASS: Alert and Calm (0) tw2 12:16 Drug: Dilaudid 1 mg Route: IVP; Site: left antecubital; tw2 13:15 Follow up: Response: No adverse reaction; Pain is decreased; RASS: Drowsy (-1) tw2 Intake: 11:30 IV: 1000ml; Total: 1000ml. tw2 12:06 IV: 1000ml; Total: 2000ml. tw2 Output: 13:55 Urine: 700ml (Voided); Total: 700ml. tw2 Outcome: 11:50 Decision to Hospitalize by Provider. pm1 13:49 Admitted to Med/surg accompanied by tech, via wheelchair, room 221, with chart, Report tw2 called to ARACELI Barfield 13:49 Condition: stable 13:49 Instructed on the need for admit. 13:56 Patient left the ED. tw2 Signatures: Dispatcher [employer] Porsche Meade Patrick, KIMBERLY WOOD SKI MAKER pm1 Sharmila Man RN RN tw2 Elizabeth Tavares [facility]
--- NOTE | 2019-11-22 11:51 | EDPHYS ---
Physician Documentation [facility] Name: Javier Rutherford Age: 44 yrs Sex: Male : 1975 Arrival Date: 11/22/2019 Time: 08:13 Bed 16 Private MD: ED Physician Bret Lopez HPI: 11/21 08:56 This 44 yrs old Male presents to ER via Ambulatory with complaints of pm1 Epigastric Pain. 08:56 The patient presents with abdominal pain in the epigastric area. Onset: The pm1 symptoms/episode began/occurred last night. The symptoms do not radiate. Associated signs and symptoms: Pertinent positives: nausea and vomiting, Pertinent negatives: chest pain, constipation, diarrhea, fever, shortness of breath. The symptoms are described as achy, crampy. Modifying factors: The symptoms are alleviated by nothing, the symptoms are aggravated by food. Severity of pain: in the emergency department the pain is actually worse. The patient has experienced similar episodes in the past, a few times, today's symptoms are similar, to previous pancreatitis. The patient has been recently been admitted at [facility], for similar complaints, 1 month ago for pancreatitis. Historical: - Allergies: 08:25 No Known Allergies; tw2 - Home Meds: 08:25 Tresiba FlexTouch U-100 subcutaneous [Active]; metformin 1,000 mg Oral tab 1 tab 2 tw2 times per day [Active]; fenofibrate 200 mg Oral tab 1 cap once daily [Active]; Novolog 100 unit/mL Sub-Q soln [Active]; atorvastatin oral oral [Active]; - PMHx: 08:25 Pancreatitis; Hyperlipidemia; fatty liver; Diabetes - NIDDM; tw2 - PSHx: 08:25 Cholecystectomy; Hernia repair; Vasectomy; tw2 - Immunization history:: Adult Immunizations. - Social history:: Smoking status: . ROS: 08:56 Constitutional: Negative for fever, chills, and weight loss, Cardiovascular: Negative pm1 for chest pain, palpitations, and edema, Respiratory: Negative for shortness of breath, cough, wheezing, and pleuritic chest pain. 08:56 Back: Negative for injury and pain, MS/Extremity: Negative for injury and deformity, Skin: Negative for injury, rash, and discoloration, Neuro: Negative for headache, weakness, numbness, tingling, and seizure. 08:56 Abdomen/GI: Positive for abdominal pain, nausea and vomiting, of the epigastric area, Negative for diarrhea. Exam: 08:56 Constitutional: This is a well developed, well nourished patient who is awake, alert, pm1 and in no acute distress. Head/Face: Normocephalic, atraumatic. Chest/axilla: Normal chest wall appearance and motion. Nontender with no deformity. No lesions are appreciated. 08:56 Back: No spinal tenderness. No costovertebral tenderness. Full range of motion. Skin: Warm, dry with normal turgor. Normal color with no rashes, no lesions, and no evidence of cellulitis. MS/ Extremity: Pulses equal, no cyanosis. Neurovascular intact. Full, normal range of motion. 08:56 Cardiovascular: Exam negative for acute changes, Rate: normal, Rhythm: regular, Pulses: no pulse deficits are appreciated, Edema: is not appreciated. 08:56 Respiratory: Exam negative for acute changes, respiratory distress, shortness of breath. 08:56 Abdomen/GI: Inspection: obese Palpation: soft, in all quadrants, mild abdominal tenderness, in the epigastric area. 08:56 Neuro: Exam negative for acute changes, Orientation: is normal, Motor: is normal, moves all fours. Vital Signs: 08:21 BP 159 / 103; Pulse 74; Resp 17; Temp 97.8(O); Pulse Ox 98% on R/A; Weight 99.79 kg tw2 (R); Height 5 ft. 8 in. (172.72 cm); Pain 6/10; 09:16 BP 146 / 94; Pulse 78; Resp 16; Pulse Ox 98% on R/A; tw2 10:20 BP 124 / 72; Pulse 83; Resp 16; Pulse Ox 97% on R/A; tw2 11:20 BP 150 / 84; Pulse 75; Resp 17; Pulse Ox 96% on R/A; tw2 12:06 BP 154 / 88; Pulse 77; Resp 17; Pulse Ox 96% on R/A; Pain 9/10; tw2 13:56 BP 147 / 85; Pulse 76; Resp 17; Pulse Ox 96% on R/A; tw2 08:21 Body Mass Index 33.45 (99.79 kg, 172.72 cm) tw2 MDM: 08:19 Patient medically screened. [facility] 11:47 Data reviewed: vital signs. Data interpreted: Pulse oximetry: on room air is 97 %. pm1 Interpretation: normal. Counseling: I had a detailed discussion with the patient and/or guardian regarding: the historical points, exam findings, and any diagnostic results supporting the discharge/admit diagnosis, lab results, radiology results, the need for further work-up and treatment in the hospital. 11:57 Physician consultation: Wilton Susanne was contacted at 11:57, regarding admission, pm1 patient's condition, and will see patient. 11/21 08:49 Order name: Basic Metabolic Panel; Complete Time: 11:46 pm1 11/21 08:49 Order name: CBC with Diff; Complete Time: 10:36 pm1 11/21 08:49 Order name: Hepatic Function; Complete Time: 11:46 pm1 11/21 08:49 Order name: Lipase; Complete Time: 11:46 pm1 11/21 08:49 Order name: Troponin (emerg Dept Use Only); Complete Time: 11:46 pm1 11/21 09:29 Order name: CREATININE WHOLE BLOOD; Complete Time: 09:35 EDMS 11/21 08:49 Order name: CT Abd/Pelvis - IV Contrast Only; Complete Time: 09:54 pm1 11/21 08:49 Order name: IV Saline Lock; Complete Time: 09:16 pm1 11/21 08:49 Order name: Labs collected and sent; Complete Time: 09:16 pm1 11/21 08:49 Order name: EKG; Complete Time: 08:50 pm1 11/21 08:49 Order name: EKG - Nurse/Tech; Complete Time: 09:15 pm1 11/21 09:27 Order name: Labs - recollect needed: recollect cbc and c7; Complete Time: 09:52 bd 11/21 10:03 Order name: NPO; Complete Time: 11:30 pm1 Administered Medications: 09:08 Drug: morphine 4 mg Route: IVP; Site: left antecubital; tw2 09:52 Follow up: Response: No adverse reaction; Pain is unchanged, physician notified; RASS: tw2 Alert and Calm (0) 09:08 Drug: Zofran (Ondansetron) 4 mg Route: IVP; Site: left antecubital; tw2 09:52 Follow up: Response: No adverse reaction tw2 09:10 Drug: Pepcid 20 mg Route: IVP; Site: left antecubital; tw2 09:52 Follow up: Response: No adverse reaction; No change in condition tw2 09:10 Drug: NS 0.9% 1000 ml Route: IV; Rate: 1000 ml; Site: left antecubital; tw2 11:30 Follow up: Response: No adverse reaction; IV Status: Completed infusion; IV Intake: tw2 1000ml 12:06 Follow up: Response: No adverse reaction; IV Status: Completed infusion; IV Intake: tw2 1000ml 10:09 Drug: Zofran (Ondansetron) 4 mg Route: IVP; Site: left antecubital; tw2 10:44 Follow up: Response: No adverse reaction; Nausea is decreased tw2 10:10 Drug: Dilaudid 1 mg Route: IVP; Site: left antecubital; tw2 10:44 Follow up: Response: No adverse reaction; Pain is decreased; RASS: Alert and Calm (0) tw2 12:16 Drug: Dilaudid 1 mg Route: IVP; Site: left antecubital; tw2 13:15 Follow up: Response: No adverse reaction; Pain is decreased; RASS: Drowsy (-1) tw2 Disposition: 11/22 08:18 Co-signature as Attending Physician, Bret Lopez MD I agree with the assessment and erlin plan of care. Disposition: 11/22/19 11:50 Hospitalization ordered by Wilton Skinner for Inpatient Admission. Preliminary diagnosis is Acute pancreatitis. - Bed requested for Telemetry/MedSurg (Inpatient). - Status is Inpatient Admission. tw2 - Condition is Stable. - Problem is new. - Symptoms have improved. Signatures: Dispatcher [employer] EDMS Marcie Marie Corey, MD MD cha Marinas, Patrick, SEISMOGRAPH HELPER SEISMOGRAPH HELPER pm1 Sharmila Man RN RN tw2 Corrections: (The following items were deleted from the chart) 11/21 13:45 11:50 Hospitalization Ordered by Wilton Skinner for Inpatient Admission. Preliminary bd diagnosis is Acute pancreatitis. Bed requested for Telemetry/MedSurg (Inpatient). Status is Inpatient Admission. Condition is Stable. Problem is new. Symptoms have improved. pm1 13:56 13:45 11/22/2019 11:50 Hospitalization Ordered by Wilton Skinner for Inpatient tw2 Admission. Preliminary diagnosis is Acute pancreatitis. Bed requested for Telemetry/MedSurg (Inpatient). Status is Inpatient Admission. Condition is Stable. Problem is new. Symptoms have improved. bd
[2019-11-22] MEDS ORDERED: MORPHINE 2 MG/ML SYR IV PRN (14:34)
[2019-11-22] MEDS: ONDANSETRON 4 MG/2 ML VIAL IV PRN ×2 (14:58→18:58)
[2019-11-22] MEDS: NA CHLORIDE 0.9% 1,000 ML IV SCH ×2 (14:58→23:40)
[2019-11-22 15:33] LABS: HDL Cholesterol 36 mg/dL (40-60)
[2019-11-22 16:02] LABS: LDL, Direct 121 mg/dL (100-129)
[2019-11-22 16:20] VITALS: BMI 33.4
[2019-11-22] MEDS ORDERED: INSULIN -REGULAR HUMAN 50 UNIT/0.5 ML ML SQ SCH (16:30)
--- NOTE | 2019-11-22 17:29 | P.HP ---
Certification for Inpatient Patient admitted to: Inpatient With expected LOS: >2 Midnights Practitioner: I am a practitioner with admitting privileges, knowledge of patient current condition, hospital course, and medical plan of care. Services: Services provided to patient in accordance with Admission requirements found in Title 42 Section 412.3 of the Code of Federal Regulations Patient History Date of Service: 11/22/19 Reason for admission: Acute pancreatitis. Abdominal pain History of Present Illness: 44-year-old gentleman with a history of recurrent pancreatitis, history of hyperlipidemia presented emergency department with a complaint of abdominal pain, nausea and vomiting. Workup in the ED reveal another episode of acute pancreatitis with elevated lipase level. CT abdomen and pelvis reports mild to moderate acute pancreatitis. Patient is not tolerating oral intake. He is admitted for further management. Allergies No Known Allergies Allergy (Verified 10/31/19 02:57) Home Medications: Fenofibrate,Micronized [Fenofibrate] 1 tab PO DAILY 11/01/19 Insulin Aspart [Novolog Flexpen] 20 units SQ DAILY 11/01/19 Insulin Degludec [Tresiba Flextouch U-200] 30 units SQ BID 11/01/19 gemfibroziL [Gemfibrozil] 1 tab PO BID 11/01/19 Creon 24,000 Units 1 cap PO AC 11/22/19 - Past Medical/Surgical History Has patient received pneumonia vaccine in the past: Yes Diabetic: Yes -: pancreatitis -: hyperlipidemia -: IDDM -: fatty liver -: fatty liver -: Cholecystectomy -: Hernia sx -: vasectomy - Family History Sister -: Diabetes, Cancer Mother -: Diabetes Brother -: GI disease, Diabetes Notes: Pancreatitis - Social History Smoking Status: Unknown if ever smoked Alcohol use: No CD- Drugs: No Caffeine use: Yes Review of Systems Other: Except as documented, all other systems reviewed and negative. Physical Examination - Vital Signs Temperature: 97.8 F Blood Pressure: 147/85 Pulse: 76 Respirations: 19 Pulse Ox (%): 96 - Physical Exam General: Alert, In no apparent distress, Oriented x3 HEENT: Normocephalic, PERRLA, Mucous membr. moist/pink Neck: Supple, JVD not distended Respiratory: Clear to auscultation bilaterally, Normal air movement Cardiovascular: No edema, Regular rate/rhythm, Normal S1 S2 Gastrointestinal: Normal bowel sounds, Soft and benign, Non-distended, Tenderness (Epigastrium) Musculoskeletal: No swelling, No erythema Integumentary: No rashes, No tenderness/swelling Neurological: Normal speech, Normal strength at 5/5 x4 extr - Studies Laboratory Data (last 24 hrs) 11/22/19 10:50: Sodium 138, Potassium 4.6, BUN 18, Creatinine 0.92, Glucose 310 H, Total Bilirubin 0.5, AST 33, ALT 42, Alkaline Phosphatase 66, Lipase 3750 H 11/22/19 09:47: WBC 6.3, Hgb 13.6, Hct 37.0 L, Plt Count 192 Assessment and Plan - Problems (Diagnosis) (1) Acute pancreatitis Onset Date: 03/21/14 Current Visit: No Status: Acute Qualifiers: Pancreatitis type: other Acute pancreatitis complication: no infection or necrosis Qualified Code(s): K85.80 - Other acute pancreatitis without necrosis or infection (2) Hyperlipidemia Current Visit: No Status: Acute Qualifiers: Hyperlipidemia type: pure hypertriglyceridemia Qualified Code(s): E78.1 - Pure hyperglyceridemia (3) Diabetes mellitus Onset Date: 11/14/16 Current Visit: No Status: Chronic Qualifiers: Diabetes mellitus complication status: with hyperglycemia (4) Hypertriglyceridemia Onset Date: 11/14/16 Current Visit: No Status: Chronic - Plan Place under observation. Supportive measures with IV hydration, IV opioids for pain management. Check lipid profile. Consider insulin drip for severe hypertriglyceridemia. Aggressive blood sugar control. PPI. Check serial lipase levels. Clear liquid diet as tolerated. - Advance Directives Does patient have a Living Will: No Does patient have a Durable POA for Healthcare: No
[2019-11-22] MEDS ORDERED: D50W 25 GM/50 ML SYRINGE/VIAL IV PRN (17:33)
[2019-11-22] MEDS ORDERED: GLUCAGON 1 MG/VIAL IM PRN (17:33)
[2019-11-22 18:13] LABS: Urine Appearance CLEAR; Urine Bilirubin NEGATIVE (NEG); Urine Blood NEGATIVE (NEG); Urine Color YELLOW; Urine Glucose 3+ (NEG); Urine Protein NEGATIVE (NEG); Urine Specific Gravity >=1.030 (1.005-1.030); Urine Urobilinogen 0.2 mg/dL (0.2-1.0)
[2019-11-22 18:32] LABS: Urine Microscopic Reflex NO UMIC
[2019-11-22] MEDS: HYDROMORPHONE HCL 1 MG/ML INJ IV PRN ×2 (18:47→23:03)
[2019-11-22] MEDS ORDERED: D5W 0 ML IV ONE (20:04)
[2019-11-22] MEDS ORDERED: NA CHLORIDE 0.9% 100 ML IV ONE (20:04)
[2019-11-22] MEDS ORDERED: INSULIN -REGULAR HUMAN 50 UNIT/0.5 ML ML ONE (20:13)
[2019-11-22] MEDS ORDERED: D5 0.9 NS 1,000 ML IV ONE (20:15)
[2019-11-22] MEDS: D5 0.9 NS 1,000 ML IV SCH (20:16)
[2019-11-22] MEDS: INSULIN -REGULAR HUMAN 100 UNIT in NA CHLORIDE 0.9% 100 ML IV SCH (20:16)
[2019-11-22] MEDS: HYDROMORPHONE HCL 0.5 MG/0.5 ML INJ IV PRN (21:24)
[2019-11-22] MEDS ORDERED: HYDROMORPHONE HCL 0.5 MG/0.5 ML INJ ONE (21:32)
[2019-11-23] MEDS: ONDANSETRON 4 MG/2 ML VIAL IV PRN ×2 (01:02→14:30)
[2019-11-23] MEDS: HYDROMORPHONE HCL 0.5 MG/0.5 ML INJ IV PRN ×6 (01:02→20:16)
[2019-11-23] MEDS ORDERED: HYDROMORPHONE HCL 0.5 MG/0.5 ML INJ ONE ×6 (01:13→20:24)
[2019-11-23] MEDS ORDERED: ONDANSETRON 4 MG/2 ML VIAL ONE ×2 (01:13→14:37)
[2019-11-23] MEDS: HYDROMORPHONE HCL 1 MG/ML INJ IV PRN ×6 (02:56→22:14)
[2019-11-23] MEDS ORDERED: HYDROMORPHONE HCL 1 MG/ML INJ ONE ×6 (03:04→22:21)
[2019-11-23] MEDS: INSULIN -REGULAR HUMAN 100 UNIT in NA CHLORIDE 0.9% 100 ML IV SCH ×2 (03:25→14:11)
[2019-11-23] MEDS ORDERED: INSULIN -REGULAR HUMAN 50 UNIT/0.5 ML ML ONE (03:35)
[2019-11-23] MEDS ORDERED: NA CHLORIDE 0.9% 100 ML IV ONE (03:36)
[2019-11-23 05:16] LABS: Absolute Lymphocytes (CBC) 0.8 K/uL (0.7-4.9); Basophils % 0.5 % (0-1.3); Hematocrit 40.1 % (39.6-49.0); MPV 9.6 fL (7.6-11.3); RBC Red Blood Cell Count 5.06 M/uL (4.33-5.43)
[2019-11-23 06:25] LABS: BUN Blood Urea Nitrogen 11 mg/dL (7-18); Bicarbonate 23 mmol/L (21-32); Glucose Level 171 mg/dL (74-106); Sodium Level 141 mmol/L (136-145)
[2019-11-23 06:26] LABS: ALT/SGPT 35 U/L (12-78); Albumin 3.6 g/dL (3.4-5.0); Alkaline Phosphatase 59 U/L (45-117); Bilirubin Total 0.6 mg/dL (0.2-1.0); Lipase 6379 U/L (73-393); Phosphorus 2.9 mg/dL (2.5-4.9); Protein, Total 7.8 g/dL (6.4-8.2); Thyroid Stimulating Hormone 0.583 uIU/mL (0.360-3.740)
[2019-11-23 06:28] LABS: AST/SGOT 33 U/L (15-37); Magnesium 1.8 mg/dL (1.8-2.4); Potassium 3.7 mmol/L (3.5-5.1)
[2019-11-23 07:53] LABS: LDL, Direct 92 mg/dL (100-129)
[2019-11-23] MEDS: NA CHLORIDE 0.9% 1,000 ML IV SCH ×4 (08:14→22:34)
[2019-11-23] MEDS: ENOXAPARIN 40 MG/0.4 ML SQ SCH (08:14)
[2019-11-23] MEDS ORDERED: ENOXAPARIN 40 MG/0.4 ML SQ ONE (08:24)
[2019-11-23] MEDS ORDERED: NA CHLORIDE 0.9% 1,000 ML ONE ×2 (08:24→16:23)
[2019-11-23] MEDS ORDERED: HYDRALAZINE HCL 20 MG/ML VIAL IV PRN (12:32)
[2019-11-23] MEDS ORDERED: HYDRALAZINE HCL 20 MG/ML VIAL ONE (13:19)
[2019-11-23] MEDS: D5 0.9 NS 1,000 ML IV SCH (14:10)
[2019-11-23] MEDS ORDERED: D5W 1,000 ML IV ONE (14:21)
--- NOTE | 2019-11-23 14:42 | P.PN ---
Subjective Date of Service: 11/23/19 Chief Complaint: Acute pancreatitis. Abdominal pain Subjective: No new changes (continues with mod-severe pain when dilaudid wears off, no appetite) Physical Examination - Vital Signs Temperature: 98.7 F Blood Pressure: 181/75 Pulse: 104 Respirations: 18 Pulse Ox (%): 98 - Physical Exam General: Alert, Moderate distress HEENT: Sclerae nonicteric Neck: No LAD Respiratory: Clear to auscultation bilaterally, Normal air movement Cardiovascular: No edema, Regular rate/rhythm Gastrointestinal: Non-distended, Tenderness (epigastric region) Integumentary: No rashes Neurological: Normal speech, Normal affect Assessment & Plan Physician Review Additional Text: Acute pancreatitis Hyperlipidemia Diabetes mellitus Hypertriglyceridemia Acute pancreatitis, recurrent Hypertriglyceridemia -NPO, IVF (NS & D5NS, titrate per glc levels), pain control for pancreatitis, keep NPO while having severe pain -started on insulin drip 11/21 for hyperTG, improving -continue to trend TG q12 -monitor closely Hyperlipidemia Diabetes mellitus -insulin drip as noted above Dispo: anticipate hospitalization for >3 days Time Spent Managing Pts Care (In Minutes): 35
[2019-11-23 21:05] LABS: LDL, Direct 83 mg/dL (100-129)
[2019-11-24] MEDS: HYDROMORPHONE HCL 0.5 MG/0.5 ML INJ IV PRN ×4 (00:39→20:07)
[2019-11-24] MEDS ORDERED: HYDROMORPHONE HCL 0.5 MG/0.5 ML INJ ONE ×4 (00:50→20:17)
[2019-11-24] MEDS: HYDROMORPHONE HCL 1 MG/ML INJ IV PRN ×4 (04:12→23:10)
[2019-11-24] MEDS ORDERED: HYDROMORPHONE HCL 1 MG/ML INJ ONE ×4 (04:18→23:20)
[2019-11-24 05:46] LABS: Absolute Lymphocytes (CBC) 0.6 K/uL (0.7-4.9); Basophils % 0.2 % (0-1.3); Hematocrit 37.9 % (39.6-49.0); Lymphocytes % 4.3 % (15.3-44.8); MPV 9.8 fL (7.6-11.3); RBC Red Blood Cell Count 4.76 M/uL (4.33-5.43)
--- NOTE | 2019-11-24 05:57 | EKG ---
Test Date: 2019-11-22 Test Time: 09:10:22 Pharmacy Data Analyst: KRISTY MEASUREMENT RESULTS: Intervals: Rate: 70 MT: 98 QRSD: 76 QT: 378 QTc: 408 [employer]: P: 44 MT: 98 QRS: 43 T: 22 INTERPRETIVE STATEMENTS: Sinus rhythm with short MT Otherwise normal ECG Compared to ECG 10/30/2019 13:38:55 Short MT interval now present T-wave abnormality no longer present Electronically Signed On 11-24-19 05:50:54 CDT by Seth Dorantes
[2019-11-24 06:23] LABS: LDL, Direct 85 mg/dL (100-129)
[2019-11-24] MEDS: NA CHLORIDE 0.9% 1,000 ML IV SCH ×4 (06:34→22:30)
[2019-11-24 06:50] LABS: ALT/SGPT 27 U/L (12-78); AST/SGOT 23 U/L (15-37); Alkaline Phosphatase 57 U/L (45-117); BUN Blood Urea Nitrogen 9 mg/dL (7-18); Bicarbonate 19 mmol/L (21-32); Bilirubin Total 1.4 mg/dL (0.2-1.0); Glucose Level 199 mg/dL (74-106); Lipase 1302 U/L (73-393); Magnesium 1.9 mg/dL (1.8-2.4); Potassium 3.2 mmol/L (3.5-5.1); Sodium Level 137 mmol/L (136-145)
[2019-11-24] MEDS: INSULIN -REGULAR HUMAN 100 UNIT in NA CHLORIDE 0.9% 100 ML IV SCH (07:42)
[2019-11-24] MEDS: ENOXAPARIN 40 MG/0.4 ML SQ SCH (07:42)
[2019-11-24] MEDS ORDERED: ENOXAPARIN 40 MG/0.4 ML SQ ONE (07:43)
[2019-11-24 08:23] LABS: Blood Morphology Comment NOT SEEN (NOT SEEN); Platelet Estimate ADEQ
[2019-11-24] MEDS: KCL 20 MEQ/100 mL IVPB 20 MEQ/100 ML BAG IV SCH ×2 (09:42→11:00)
[2019-11-24] MEDS ORDERED: KCL 20 MEQ/100 mL IVPB 40 MEQ/200 ML BAG IV ONE (09:52)
[2019-11-24] MEDS ORDERED: GLUCAGON 1 MG/VIAL IM PRN (11:02)
[2019-11-24] MEDS ORDERED: D50W 25 GM/50 ML SYRINGE/VIAL IV PRN (11:02)
[2019-11-24] MEDS ORDERED: NA CHLORIDE 0.9% 1,000 ML ONE ×2 (11:36→17:07)
[2019-11-24] MEDS: INSULIN -REGULAR HUMAN 50 UNIT/0.5 ML ML SQ SCH ×3 (13:00→22:14)
--- NOTE | 2019-11-24 14:29 | P.PN ---
Subjective Date of Service: 11/24/19 Chief Complaint: Acute pancreatitis. Abdominal pain Subjective: Improving (reports pain slightly better, but still moderate-severe when medication wears off. slight nausea as well feels abdomen is less distended today) Physical Examination - Vital Signs Temperature: 99 F Blood Pressure: 176/79 Pulse: 108 Respirations: 18 Pulse Ox (%): 98 - Physical Exam General: Alert, Mild distress HEENT: Sclerae nonicteric Neck: No LAD Respiratory: Clear to auscultation bilaterally, Normal air movement Cardiovascular: No edema, Regular rate/rhythm (tachycardic 90-110s) Gastrointestinal: Distended (slightly), Tenderness (epigastrium) Musculoskeletal: No erythema, No tenderness Integumentary: No rashes Neurological: Normal speech, Normal affect Assessment & Plan Physician Review Additional Text: Acute pancreatitis Hyperlipidemia Diabetes mellitus Hypertriglyceridemia HTN Acute pancreatitis, recurrent Hypertriglyceridemia -NPO, IVF (NS & D5NS, titrate per glc levels), pain control for pancreatitis, keep NPO while having severe pain -started on insulin drip 11/21 for hyperTG, improving, down to ~530 today, will dc insulin drip; stop D5NS, increase NS to 175ml/hr -monitor closely Hyperlipidemia Diabetes mellitus -insulin drip dc'd today -switch to sliding scale, accucheks q4hr HTN -increases when patient is in pain -hydralazine PRN ordered Dispo: anticipate hospitalization for >3 days Time Spent Managing Pts Care (In Minutes): 35
[2019-11-24] MEDS ORDERED: INSULIN -REGULAR HUMAN 50 UNIT/0.5 ML ML ONE ×2 (17:21→22:25)
[2019-11-25] MEDS: INSULIN -REGULAR HUMAN 50 UNIT/0.5 ML ML SQ SCH ×6 (01:00→20:26)
[2019-11-25] MEDS ORDERED: NA CHLORIDE 0.9% 1,000 ML ONE ×2 (01:05→11:21)
[2019-11-25] MEDS: HYDROMORPHONE HCL 0.5 MG/0.5 ML INJ IV PRN ×3 (01:19→23:32)
[2019-11-25] MEDS ORDERED: HYDROMORPHONE HCL 0.5 MG/0.5 ML INJ ONE (01:30)
[2019-11-25] MEDS: NA CHLORIDE 0.9% 1,000 ML IV SCH ×5 (04:13→23:35)
[2019-11-25 05:39] LABS: Absolute Lymphocytes (CBC) 0.8 K/uL (0.7-4.9); Basophils % 0.2 % (0-1.3); Lymphocytes % 7.8 % (15.3-44.8); MPV 9.6 fL (7.6-11.3); RBC Red Blood Cell Count 4.15 M/uL (4.33-5.43)
[2019-11-25 05:54] LABS: ALT/SGPT 21 U/L (12-78); AST/SGOT 11 U/L (15-37); Albumin 2.6 g/dL (3.4-5.0); Alkaline Phosphatase 63 U/L (45-117); BUN Blood Urea Nitrogen 13 mg/dL (7-18); Bicarbonate 18 mmol/L (21-32); Bilirubin Total 0.9 mg/dL (0.2-1.0); Glucose Level 186 mg/dL (74-106); Lipase 458 U/L (73-393); Phosphorus 1.9 mg/dL (2.5-4.9); Potassium 3.7 mmol/L (3.5-5.1); Protein, Total 6.8 g/dL (6.4-8.2); Sodium Level 139 mmol/L (136-145)
[2019-11-25] MEDS: HYDROMORPHONE HCL 1 MG/ML INJ IV PRN ×4 (06:38→20:21)
[2019-11-25] MEDS: ONDANSETRON 4 MG/2 ML VIAL IV PRN ×2 (06:39→14:31)
[2019-11-25] MEDS ORDERED: HYDROMORPHONE HCL 1 MG/ML INJ ONE ×2 (06:48→11:21)
[2019-11-25] MEDS ORDERED: ONDANSETRON 4 MG/2 ML VIAL ONE (06:50)
[2019-11-25] MEDS: POTASSIUM CL SA 10 MEQ TAB PO ONE ×2 (08:00→10:15)
--- NOTE | 2019-11-25 08:50 | P.PN ---
Subjective Date of Service: 11/25/19 Chief Complaint: Acute pancreatitis. Abdominal pain Subjective: Improving (Pain better controlled, not needing as much pain medication yesterday evening. Tried ice chips yesterday and had some nausea This morning as pain med is wearing off he does report a 7/10. No appetite) Physical Examination - Vital Signs Temperature: 98.5 F Blood Pressure: 133/72 Pulse: 100 Respirations: 20 Pulse Ox (%): 99 - Physical Exam General: Alert, In no apparent distress HEENT: Sclerae nonicteric Neck: Supple, No LAD Respiratory: Clear to auscultation bilaterally, Normal air movement Cardiovascular: No edema, Regular rate/rhythm, Normal S1 S2 Gastrointestinal: Normal bowel sounds, Soft and benign, Tenderness (epigastrium) Musculoskeletal: No erythema, No tenderness Integumentary: No rashes Neurological: Normal speech, Normal affect Assessment & Plan Physician Review Additional Text: Acute pancreatitis Hypertriglyceridemia Diabetes mellitus Hypertriglyceridemia HTN Acute pancreatitis, recurrent Hypertriglyceridemia -NPO, IVF -insulin drip from 11/21 to 11/23 for hyperTG -dilaudid for pain control, needing less -attempted ice chips yesterday but had nausea, feeling a little better today but no appetite -can try ice chips again later today if feeling better -coming up on 4 days of NPO, may need PPN or TPN tomorrrow if not improving -monitor closely Hyperlipidemia Diabetes mellitus -insulin drip dc'd 11/23 -switched to sliding scale, accucheks q4hr while NPO HTN -increases when patient is in pain -hydralazine PRN ordered Dispo: anticipate hospitalization for >3 days Time Spent Managing Pts Care (In Minutes): 35
[2019-11-25] MEDS: ENOXAPARIN 40 MG/0.4 ML SQ SCH (10:16)
[2019-11-25] MEDS ORDERED: POTASSIUM CL SA 10 MEQ TAB PO ONE (10:26)
[2019-11-25] MEDS ORDERED: ENOXAPARIN 40 MG/0.4 ML SQ ONE (10:26)
[2019-11-25] MEDS ORDERED: POTASSIUM PHOS IN 0.9 % NACL 15 MMOL/250 ML BAG IV ONE (15:00)
[2019-11-26] MEDS: INSULIN -REGULAR HUMAN 50 UNIT/0.5 ML ML SQ SCH ×6 (01:00→21:00)
[2019-11-26] MEDS: HYDROMORPHONE HCL 1 MG/ML INJ IV PRN ×5 (02:37→23:25)
[2019-11-26] MEDS: ONDANSETRON 4 MG/2 ML VIAL IV PRN ×3 (02:40→23:24)
[2019-11-26] MEDS: NA CHLORIDE 0.9% 1,000 ML IV SCH ×5 (05:13→20:47)
[2019-11-26] MEDS: HYDROMORPHONE HCL 0.5 MG/0.5 ML INJ IV PRN ×3 (05:13→20:45)
[2019-11-26 05:27] LABS: Absolute Lymphocytes (CBC) 1.1 K/uL (0.7-4.9); Basophils % 0.2 % (0-1.3); Hematocrit 32.4 % (39.6-49.0); Lymphocytes % 12.2 % (15.3-44.8); MPV 9.2 fL (7.6-11.3); RBC Red Blood Cell Count 3.97 M/uL (4.33-5.43)
[2019-11-26 05:51] LABS: ALT/SGPT 16 U/L (12-78); AST/SGOT 6 U/L (15-37); Albumin 2.4 g/dL (3.4-5.0); Alkaline Phosphatase 59 U/L (45-117); BUN Blood Urea Nitrogen 12 mg/dL (7-18); Bicarbonate 18 mmol/L (21-32); Bilirubin Total 0.7 mg/dL (0.2-1.0); Glucose Level 189 mg/dL (74-106); Phosphorus 2.1 mg/dL (2.5-4.9); Potassium 3.3 mmol/L (3.5-5.1); Protein, Total 6.7 g/dL (6.4-8.2); Sodium Level 139 mmol/L (136-145)
[2019-11-26] MEDS ORDERED: POTASSIUM PHOS IN 0.9 % NACL 15 MMOL/250 ML BAG IV ONE (07:37)
[2019-11-26] MEDS ORDERED: KCL 20 MEQ/100 mL IVPB 20 MEQ/100 ML BAG IV SCH (08:00)
[2019-11-26] MEDS: ENOXAPARIN 40 MG/0.4 ML SQ SCH (08:26)
--- NOTE | 2019-11-26 10:58 | P.PN ---
Subjective Date of Service: 11/26/19 Chief Complaint: Acute pancreatitis. Abdominal pain Subjective: Improving (Pain is improving, tolerated a cup of ice chips overnight Feels abdomen is a little bit softer) Physical Examination - Vital Signs Temperature: 99.4 F Blood Pressure: 123/59 Pulse: 80 Respirations: 18 Pulse Ox (%): 97 - Physical Exam General: Alert, In no apparent distress, Oriented x3 HEENT: Sclerae nonicteric Neck: Supple Respiratory: Clear to auscultation bilaterally, Normal air movement Cardiovascular: No edema, Regular rate/rhythm, Normal S1 S2 Gastrointestinal: Soft and benign, Non-distended, Tenderness (Mild, epigastrium) Musculoskeletal: No erythema, No tenderness Integumentary: No rashes Neurological: Normal speech, Normal affect Assessment & Plan Physician Review Additional Text: Acute pancreatitis Hypertriglyceridemia Diabetes mellitus Hypertriglyceridemia HTN Acute pancreatitis, recurrent Hypertriglyceridemia -tolerated a cup of ice chips overnight, advance to clear liquid diet, decrease IV fluids from 175-> 125 -required insulin drip from 11/21 to 11/23 for hyperTG -dilaudid for pain control, needing less -monitor closely Hyperlipidemia Diabetes mellitus -insulin drip dc'd 11/23 -switched to sliding scale, accucheks q4hr while NPO HTN -increases when patient is in pain -hydralazine PRN ordered Dispo: anticipate hospitalization for 48-72 hr Time Spent Managing Pts Care (In Minutes): 35
[2019-11-27] MEDS: INSULIN -REGULAR HUMAN 50 UNIT/0.5 ML ML SQ SCH ×5 (01:00→21:14)
[2019-11-27] MEDS: KCL 20 MEQ/100 mL IVPB 20 MEQ/100 ML BAG IV SCH ×2 (01:02→03:44)
[2019-11-27] MEDS: HYDROMORPHONE HCL 0.5 MG/0.5 ML INJ IV PRN ×4 (01:47→20:14)
[2019-11-27] MEDS: NA CHLORIDE 0.9% 1,000 ML IV SCH ×4 (02:56→23:49)
[2019-11-27] MEDS: HYDROMORPHONE HCL 1 MG/ML INJ IV PRN ×4 (05:22→23:49)
[2019-11-27] MEDS: ONDANSETRON 4 MG/2 ML VIAL IV PRN (05:22)
[2019-11-27 06:01] LABS: Basophils % 0.3 % (0-1.3); Hematocrit 31.4 % (39.6-49.0); Lymphocytes % 16.7 % (15.3-44.8); MPV 9.1 fL (7.6-11.3); RBC Red Blood Cell Count 3.91 M/uL (4.33-5.43)
[2019-11-27 06:14] LABS: ALT/SGPT 14 U/L (12-78); AST/SGOT 5 U/L (15-37); Albumin 2.3 g/dL (3.4-5.0); Alkaline Phosphatase 58 U/L (45-117); BUN Blood Urea Nitrogen 9 mg/dL (7-18); Bicarbonate 23 mmol/L (21-32); Bilirubin Total 0.5 mg/dL (0.2-1.0); Glucose Level 185 mg/dL (74-106); Lipase 325 U/L (73-393); Magnesium 1.8 mg/dL (1.8-2.4); Potassium 3.3 mmol/L (3.5-5.1); Protein, Total 6.5 g/dL (6.4-8.2); Sodium Level 138 mmol/L (136-145)
[2019-11-27] MEDS: ENOXAPARIN 40 MG/0.4 ML SQ SCH (08:41)
--- NOTE | 2019-11-27 09:58 | P.PN ---
Subjective Date of Service: 11/27/19 Chief Complaint: Acute pancreatitis. Abdominal pain Subjective: Improving (In pain is continuing to improve, able to tolerate some jello and juice yesterday Feels abdomen is less distended) Physical Examination - Vital Signs Temperature: 98.3 F Blood Pressure: 130/62 Pulse: 80 Respirations: 18 Pulse Ox (%): 98 - Physical Exam General: Alert, In no apparent distress HEENT: Sclerae nonicteric Respiratory: Clear to auscultation bilaterally, Normal air movement Cardiovascular: No edema, Regular rate/rhythm, Normal S1 S2 Gastrointestinal: Soft and benign, Non-distended, Tenderness (Epigastric, mild) Musculoskeletal: No tenderness Integumentary: No rashes Neurological: Normal speech, Normal affect Assessment & Plan Physician Review Additional Text: Acute pancreatitis Hypertriglyceridemia Diabetes mellitus Hypertriglyceridemia HTN Acute pancreatitis, recurrent Hypertriglyceridemia -tolerated ice chips, juice, and jello yesterday. -required insulin drip from 11/21 to 11/23 for hyperTG -dilaudid for pain control, needing less -clear liquid diet this morning, and slowly advance if tolerated -if pain worsens will need PPN today as it has been nearly 4-5 days without anything to eat Hyperlipidemia Diabetes mellitus -insulin drip dc'd 11/23 -switched to sliding scale, accucheks HTN -increases when patient is in pain -hydralazine PRN ordered Dispo: anticipate hospitalization for 48-72 hr Time Spent Managing Pts Care (In Minutes): 35
[2019-11-27] MEDS ORDERED: POTASSIUM CL SA 10 MEQ TAB PO ONE (16:00)
[2019-11-28] MEDS: NA CHLORIDE 0.9% 1,000 ML IV SCH ×3 (02:56→20:25)
[2019-11-28] MEDS: HYDROMORPHONE HCL 0.5 MG/0.5 ML INJ IV PRN (03:59)
[2019-11-28 06:34] LABS: BUN Blood Urea Nitrogen 6 mg/dL (7-18); Bicarbonate 23 mmol/L (21-32); Glucose Level 190 mg/dL (74-106); Magnesium 1.7 mg/dL (1.8-2.4); Potassium 3.2 mmol/L (3.5-5.1); Sodium Level 138 mmol/L (136-145)
[2019-11-28] MEDS: INSULIN -REGULAR HUMAN 50 UNIT/0.5 ML ML SQ SCH ×4 (07:30→21:37)
[2019-11-28] MEDS: HYDROMORPHONE HCL 1 MG/ML INJ IV PRN ×4 (08:35→20:27)
[2019-11-28] MEDS: ENOXAPARIN 40 MG/0.4 ML SQ SCH (08:35)
[2019-11-28] MEDS ORDERED: POTASSIUM CL SA 10 MEQ TAB PO ONE (09:00)
[2019-11-28] MEDS ORDERED: MAGNESIUM SULFATE 1 gm IVPB 1 GM/100 ML BAG IV ONE (09:00)
--- NOTE | 2019-11-28 11:28 | P.PN ---
Subjective Date of Service: 11/28/19 Chief Complaint: Acute pancreatitis. Abdominal pain Subjective: Improving (Pain much better, tolerated broth and clear liquids yesterday without any increase in pain or nausea) Physical Examination - Vital Signs Temperature: 97.5 F Blood Pressure: 136/74 Pulse: 79 Respirations: 18 Pulse Ox (%): 96 - Physical Exam General: Alert, In no apparent distress HEENT: Sclerae nonicteric Respiratory: Clear to auscultation bilaterally, Normal air movement Cardiovascular: No edema, Regular rate/rhythm, Normal S1 S2 Gastrointestinal: Soft and benign, Non-distended, Tenderness (Mild in epigastrium) Musculoskeletal: No erythema, No tenderness Integumentary: No rashes Neurological: Normal speech, Normal affect Assessment & Plan Physician Review Additional Text: Acute pancreatitis Hypertriglyceridemia Diabetes mellitus Hypertriglyceridemia HTN Acute pancreatitis, recurrent Hypertriglyceridemia -tolerated clear liquid diet without any increase in pain -required insulin drip from 11/21 to 11/23 for hyperTG -dilaudid for pain control, needing less -advanced to full liquids today Hyperlipidemia Diabetes mellitus -insulin drip dc'd 11/23 -switched to sliding scale, accucheks HTN -increases when patient is in pain -normotensive since pain has improved -hydralazine PRN ordered Dispo: anticipate discharge home in 24-48hr
[2019-11-29] MEDS: HYDROMORPHONE HCL 1 MG/ML INJ IV PRN ×2 (01:13→06:29)
[2019-11-29 01:19] VITALS: O2SAT 97
[2019-11-29 04:53] LABS: BUN Blood Urea Nitrogen 5 mg/dL (7-18); Bicarbonate 25 mmol/L (21-32); Glucose Level 210 mg/dL (74-106); Magnesium 1.8 mg/dL (1.8-2.4); Potassium 3.1 mmol/L (3.5-5.1); Sodium Level 137 mmol/L (136-145)
[2019-11-29] MEDS ORDERED: POTASSIUM CL SA 10 MEQ TAB PO ONE (05:53)
[2019-11-29] MEDS ORDERED: MAGNESIUM SULFATE 1 gm IVPB 1 GM/100 ML BAG IV ONE (05:53)
[2019-11-29] MEDS: NA CHLORIDE 0.9% 1,000 ML IV SCH (06:27)
[2019-11-29] MEDS ORDERED: HYDROCODONE/APAP 5/325 MG TAB PO PRN (07:19)
[2019-11-29] MEDS: INSULIN -REGULAR HUMAN 50 UNIT/0.5 ML ML SQ SCH ×2 (08:10→11:52)
[2019-11-29] MEDS: ENOXAPARIN 40 MG/0.4 ML SQ SCH (08:11)
--- NOTE | 2019-11-29 11:48 | P.DS ---
Admission Date: 11/22/19 Discharge Date: 11/29/19 Disposition: ROUTINE DISCHARGE Discharge Condition: GOOD Reason for Admission: Acute pancreatitis. Abdominal pain Procedures: CT Abd/Pelvis (11/22/19): Mild to moderate stranding adjacent to the pancreatic head. Punctate pancreatic calcification. Problem List: Acute pancreatitis Hypertriglyceridemia Diabetes mellitus Hypertriglyceridemia HTN Brief History of Present Illness: 44-year-old gentleman with a history of recurrent pancreatitis, history of hyperlipidemia presented emergency department with a complaint of abdominal pa in, nausea and vomiting. Workup in the ED reveal another episode of acute pancreatitis with elevated lipase level. CT abdomen and pelvis reports mild to moderate acute pancreatitis. Patient is not tolerating oral intake Hospital Course: Patient was admitted to the ICU and started on an Insulin drip for his elevated trigylcerides (2668) until 11/23. He required several days of NPO, IVF and pain control before he was able to slowly be advanced. On day of discharge, he was tolerating a GI soft diet without nausea/vomiting or pain. He felt much better and was ready to be discharged home. He was counselled on some foods to avoid. He was discharged to resume his home medications, no new prescriptions. Vital Signs/Physical Exam: Temp Pulse Resp BP Pulse Ox 97.1 F 81 16 123/67 99 11/29/19 08:00 11/29/19 08:00 11/29/19 08:00 11/29/19 08:00 11/29/19 08:00 General: Alert, In no apparent distress HEENT: Mucous membr. moist/pink, Sclerae nonicteric Neck: No LAD Respiratory: Clear to auscultation bilaterally, Normal air movement Cardiovascular: No edema, Regular rate/rhythm, Normal S1 S2 Gastrointestinal: Soft and benign, Non-distended, No tenderness Musculoskeletal: No erythema, No tenderness Integumentary: No rashes Neurological: Normal speech, Normal affect Laboratory Data at Discharge: WBC 5.8 K/uL (4.3-10.9) D 11/27/19 05:15 Hgb 10.7 g/dL (13.6-17.9) L 11/27/19 05:15 Hct 31.4 % (39.6-49.0) L 11/27/19 05:15 Plt Count 169 K/uL (152-406) 11/27/19 05:15 Sodium 137 mmol/L (136-145) 11/29/19 04:02 Potassium 3.1 mmol/L (3.5-5.1) L 11/29/19 04:02 BUN 5 mg/dL (7-18) L 11/29/19 04:02 Creatinine 0.46 mg/dL (0.55-1.3) L 11/29/19 04:02 Glucose 210 mg/dL (74-106) H 11/29/19 04:02 Phosphorus 2.1 mg/dL (2.5-4.9) L 11/26/19 05:09 Magnesium 1.8 mg/dL (1.8-2.4) 11/29/19 04:02 Total Bilirubin 0.5 mg/dL (0.2-1.0) 11/27/19 05:15 AST 5 U/L (15-37) L 11/27/19 05:15 ALT 14 U/L (12-78) 11/27/19 05:15 Alkaline Phosphatase 58 U/L (45-117) 11/27/19 05:15 Triglycerides 297 mg/dL (<150) H 11/27/19 05:15 Cholesterol 347 mg/dL (<200) H 11/22/19 14:46 LDL Cholesterol Direct 85 mg/dL (100-129) L 11/24/19 05:25 HDL Cholesterol 36 mg/dL (40-60) L 11/22/19 14:46 Cholesterol/HDL Ratio 9.64 11/22/19 14:46 Lipase 325 U/L (73-393) 11/27/19 05:15 Home Medications: Fenofibrate,Micronized [Fenofibrate] 1 tab PO DAILY 11/01/19 Insulin Aspart [Novolog Flexpen] 20 units SQ DAILY 11/01/19 Insulin Degludec [Tresiba Flextouch U-200] 30 units SQ BID 11/01/19 gemfibroziL [Gemfibrozil] 1 tab PO BID 11/01/19 Creon 24,000 Units 1 cap PO AC 11/22/19 Patient Discharge Instructions: Follow up with your primary care doctor within 1 week. no new prescriptions. Diet: low fat diet Activity: Ad stanley Time spent managing pt's care (in minutes): 35
[2019-11-29 12:23] VITALS: BP 125/61; TEMP 97.4
== END 2019-11-29 12:46 | disposition home or self-care (01) | DRG 440 ==
LOC: ER 08:12 → ERHOLD 13:09 → 2ND 13:51 → ERHOLD 18:35 → 2ND 11-25 14:19
PROVIDERS: ADMIT Internal Medicine; ATTEND Hospitalist
DX: K85.80 Other acute pancreatitis without necrosis or infection (principal); E78.1 Pure hyperglyceridemia; I10 Essential (primary) hypertension; E11.65 Type 2 diabetes mellitus with hyperglycemia; Z79.899 Other long term (current) drug therapy; Z79.4 Long term (current) use of insulin; Z90.49 Acquired absence of other specified parts of digestive tract; Z20.828 Contact with and (suspected) exposure to other viral communicable diseases
CPT/HCPCS: 36415; 74177; 80048; 80053; 80061; 80076; 81003; 82565; 82947; 83690; 83735; 84100; 84132; 84443; 84478; 84484; 85025; 93005; 96361; 96374; 96375; 99285; J0360; J1170; J1650; J2270; J2405; J3475; J3480; J7030; J7042; Q9967; U0002

== ENCOUNTER 2020-03-06 20:31 | Inpatient (IN) | payer OTHER ==
--- OUTSIDE RECORDS SUMMARY | 2020-03-06 20:33 | XMS REPORT | Continuity of Care Document ---
:1975 Author Organization [facility] t Address [address] [place] [address] Dr. Bain [address] [place] [id number] Care Team Providers Name Role Phone Unavailable Unavailable Unavailable Problems This patient has no known problems. Allergies, Adverse Reactions, Alerts This patient has no known allergies or adverse reactions. Medications This patient has no known medications. Procedures This patient has no known procedures. Results This patient has no known results.
[2020-03-06] MEDS ORDERED: HYDROMORPHONE HCL 1 MG/ML INJ ONE (22:31)
[2020-03-06] MEDS ORDERED: ONDANSETRON 4 MG/2 ML VIAL ONE (22:31)
[2020-03-06] MEDS ORDERED: NA CHLORIDE 0.9% 2,000 ML ONE (22:32)
[2020-03-06] MEDS ORDERED: FAMOTIDINE 20 MG/2 ML VIAL IV ONE (22:32)
[2020-03-06 23:59] LABS: Absolute Lymphocytes (CBC) 1.5 K/uL (0.7-4.9); Basophils % 0.8 % (0-1.3); Hematocrit 37.9 % (39.6-49.0); Lymphocytes % 17.7 % (15.3-44.8); MPV 11.5 fL (7.6-11.3)
[2020-03-07] LABS: Protime INR 1.02
--- NOTE | 2020-03-07 00:01 | ER ---
Nurse's Notes [facility] Name: Javier Rutherford Age: 45 yrs Sex: Male : 1975 Arrival Date: 03/06/2020 Time: 20:31 Bed 13 Private MD: Diagnosis: Acute pancreatitis;Hyperlipidemia, unspecified;Pseudocyst of pancreas;Type 2 diabetes mellitus Presentation: 03/06 20:48 Chief complaint: Patient states: Severe upper abd pain with nausea for 2 days. Today ll1 the pain radiates into chest and back. No fever. Coronavirus screen: Client denies travel out of the [place] in the last 14 days. At this time, the client does not indicate any symptoms associated with coronavirus-19. Ebola Screen: Patient denies travel to an Ebola-affected area in the 21 days before illness onset. Initial Sepsis Screen: Does the patient meet any 2 criteria? HR > 90 bpm. No. Patient's initial sepsis screen is negative. Does the patient have a suspected source of infection? Yes: Acute abdominal pain. Risk Assessment: Do you want to hurt yourself or someone else? Patient reports no desire to harm self or others. Onset of symptoms was March 05, 2020. 20:48 Method Of Arrival: Ambulatory ll1 20:48 Acuity: HANY 2 ll1 Historical: - Allergies: 20:48 No Known Allergies; ll1 - PMHx: 20:48 Diabetes - NIDDM; fatty liver; Hyperlipidemia; Pancreatitis; ll1 - PSHx: 20:48 Cholecystectomy; Hernia repair; Vasectomy; ll1 - Immunization history:: Flu vaccine is up to date. - Social history:: Smoking status: Patient denies any tobacco usage or history of. - Family history:: not pertinent. Screenin:10 Abuse screen: Denies threats or abuse. Nutritional screening: No deficits noted. jb4 Tuberculosis screening: No symptoms or risk factors identified. Fall Risk None identified. Assessment: 21:10 General: Appears in no apparent distress. uncomfortable, Behavior is calm, cooperative, jb4 appropriate for age. Pain: Complains of pain in abdomen Pain does not radiate. Pain currently is 10 out of 10 on a pain scale. Neuro: Level of Consciousness is awake, alert, obeys commands, Oriented to person, place, time, situation. Cardiovascular: Patient's skin is warm and dry. Respiratory: Airway is patent Respiratory effort is even, unlabored, Respiratory pattern is regular, symmetrical. GI: Abdomen is round non-distended, Reports upper abdominal pain. : No signs and/or symptoms were reported regarding the genitourinary system. EENT: No signs and/or symptoms were reported regarding the EENT system. Derm: Skin is intact, Skin is pink, warm \T\ dry. Musculoskeletal: Circulation, motion, and sensation intact. Range of motion: intact in all extremities. 22:15 Reassessment: Patient appears in no apparent distress at this time. Patient and/or jb4 family updated on plan of care and expected duration. Pain level reassessed. Patient is alert, oriented x 3, equal unlabored respirations, skin warm/dry/pink. 23:00 Reassessment: Patient appears in no apparent distress at this time. Patient and/or jb4 family updated on plan of care and expected duration. Pain level reassessed. Patient is alert, oriented x 3, equal unlabored respirations, skin warm/dry/pink. 03/07 00:00 Reassessment: Patient appears in no apparent distress at this time. Patient and/or jb4 family updated on plan of care and expected duration. Pain level reassessed. Patient is alert, oriented x 3, equal unlabored respirations, skin warm/dry/pink. 01:00 Reassessment: Patient appears in no apparent distress at this time. Patient and/or jb4 family updated on plan of care and expected duration. Pain level reassessed. Patient is alert, oriented x 3, equal unlabored respirations, skin warm/dry/pink. 02:00 Reassessment: Patient appears in no apparent distress at this time. Patient and/or jb4 family updated on plan of care and expected duration. Pain level reassessed. Patient is alert, oriented x 3, equal unlabored respirations, skin warm/dry/pink. Vital Signs: 03/06 20:48 BP 141 / 90; Pulse 96; Resp 20; Temp 98.3; Pulse Ox 100% on R/A; Pain 10/10; ll1 03/07 00:00 BP 143 / 79; Pulse 92; Resp 16; Pulse Ox 100% on R/A; jb4 00:30 BP 125 / 69; Pulse 87; Resp 16; Pulse Ox 100% on R/A; jb4 01:30 BP 131 / 88; Pulse 90; Resp 16; Pulse Ox 100% ; jb4 02:30 BP 126 / 77; Pulse 87; Resp 16; Pulse Ox 100% on R/A; Weight 89.49 kg (M); Height 5 ft. jb4 8 in. (172.72 cm) (R); 02:30 Body Mass Index 30.00 (89.49 kg, 172.72 cm) jb4 ED Course: 03/06 20:31 Patient arrived in ED. cl3 20:48 Arm band placed on. EKG completed in triage. Results shown to MD. ll1 20:50 Triage completed. ll1 21:10 Patient has correct armband on for positive identification. Placed in gown. Bed in low jb4 position. Call light in reach. Side rails up X 1. Pulse ox on. NIBP on. 21:10 Patient maintains SpO2 saturation greater than 95% on room air. jb4 21:12 Bret Lopez MD is Attending Physician. [facility] 21:37 Walter Fregoso RN is Primary Nurse. jb4 22:20 Inserted saline lock: 20 gauge in right antecubital area, using aseptic technique. mg2 Blood collected. 22:43 XRAY Chest (1 view) In Process Unspecified. EDMS 23:59 Arpan Mckeon MD is Hospitalizing Provider. [facility] 03/07 01:03 CT Abd/Pelvis - IV Contrast Only In Process Unspecified. EDMS 02:40 No provider procedures requiring assistance completed. Patient admitted, IV remains in jb4 place. 07:00 Report received from ARACELI Giraldo. jl7 09:30 Report given to ARACELI Sinclair. jl7 10:43 Triglycerides drawn by ma and sent to lab. 3 13:37 Primary Nurse role handed off by Walter Fregoso RN jl7 13:37 Kaiden Golden RN is Primary Nurse. jl7 15:30 Report received from ARACELI Sinclair. jl7 Administered Medications: 03/06 22:21 Drug: NS 0.9% 1000 ml Route: IV; Rate: 1 bolus; Site: right antecubital; mg2 03/07 00:00 Follow up: Response: No adverse reaction; IV Status: Completed infusion; IV Intake: jb4 1000ml 03/06 22:21 Drug: NS 0.9% 1000 ml Route: IV; Rate: 1 bolus; Site: right antecubital; mg2 03/07 00:00 Follow up: Response: No adverse reaction; IV Status: Completed infusion; IV Intake: jb4 1000ml 03/06 22:21 Drug: Dilaudid 1 mg Route: IVP; Site: right antecubital; mg2 22:50 Follow up: Response: No adverse reaction; Pain is decreased; RASS: Alert and Calm (0) jb4 22:21 Drug: Zofran (Ondansetron) 4 mg Route: IVP; Site: right antecubital; mg2 22:50 Follow up: Response: No adverse reaction; Nausea is decreased jb4 22:21 Drug: Pepcid 20 mg Route: IVP; Site: right antecubital; mg2 22:50 Follow up: Response: No adverse reaction jb4 23:59 Drug: Dilaudid 1 mg Route: IVP; Site: right antecubital; jb4 03/07 00:30 Follow up: Response: No adverse reaction; RASS: Alert and Calm (0) jb4 00:45 Drug: Dilaudid 1 mg Route: IVP; Site: right antecubital; jb4 01:15 Follow up: Response: No adverse reaction; Pain is decreased; RASS: Alert and Calm (0) jb4 Intake: 00:00 IV: 1000ml; Total: 1000ml. jb4 00:00 IV: 1000ml; Total: 2000ml. jb4 Outcome: 00:00 Decision to Hospitalize by Provider. erlin 02:40 Admitted to ER Hold. Please see [facility] for further documentation. jb4 02:40 Condition: stable 02:40 Discharge instructions given to patient, Instructed on the need for admit, Demonstrated understanding of instructions. 17:03 Patient left the ED. dm5 Signatures: Dispatcher [employer] EDMS Annalise Rodriguez RN RN dm5 Bret Lopez MD MD cha Bryson, James RN RN jb4 Kaiden Golden RN RN jl7 Juanita Chandler 3 Guzman Hyman RN RN mg2 Nevin Ramirez Lynsay, RN RN ll1
--- NOTE | 2020-03-07 00:01 | EDPHYS ---
Physician Documentation [facility] Name: Javier Rutherford Age: 45 yrs Sex: Male : 1975 Arrival Date: 03/06/2020 Time: 20:31 Bed 13 Private MD: ED Physician Bret Lopez HPI: 03/06 21:41 This 45 yrs old Male presents to ER via Ambulatory with complaints of Chest erlin Tightness. 21:41 The patient or guardian reports chest pain that is located primarily in the epigastric erlin area. Onset: 3 day(s) ago. The pain does not radiate. Associated signs and symptoms: The patient has no apparent associated signs or symptoms. The chest pain is described as a pressure. Duration: The patient or guardian reports a single episode, that is still ongoing. Modifying factors: The symptoms are alleviated by nothing. the symptoms are aggravated by nothing. Severity of pain: At its worst the pain was moderate in the emergency department the pain is unchanged. Historical: - Allergies: 20:48 No Known Allergies; ll1 - PMHx: 20:48 Diabetes - NIDDM; fatty liver; Hyperlipidemia; Pancreatitis; ll1 - PSHx: 20:48 Cholecystectomy; Hernia repair; Vasectomy; ll1 - Immunization history:: Flu vaccine is up to date. - Social history:: Smoking status: Patient denies any tobacco usage or history of. - Family history:: not pertinent. ROS: 21:41 Constitutional: Negative for fever, chills, and weight loss, Eyes: Negative for injury, erlin pain, redness, and discharge, ENT: Negative for injury, pain, and discharge, Neck: Negative for injury, pain, and swelling, Cardiovascular: Negative for chest pain, palpitations, and edema, Respiratory: Negative for shortness of breath, cough, wheezing, and pleuritic chest pain, Back: Negative for injury and pain, : Negative for injury, bleeding, discharge, and swelling, MS/Extremity: Negative for injury and deformity, Skin: Negative for injury, rash, and discoloration, Neuro: Negative for headache, weakness, numbness, tingling, and seizure, Psych: Negative for depression, anxiety, suicide ideation, homicidal ideation, and hallucinations, Allergy/Immunology: Negative for hives, rash, and allergies, Endocrine: Negative for neck swelling, polydipsia, polyuria, polyphagia, and marked weight changes, Hematologic/Lymphatic: Negative for swollen nodes, abnormal bleeding, and unusual bruising. 21:41 Abdomen/GI: Positive for abdominal pain, of the epigastric area, right upper quadrant and left upper quadrant. Exam: 21:41 Constitutional: This is a well developed, well nourished patient who is awake, alert, erlin and in no acute distress. Head/Face: Normocephalic, atraumatic. Eyes: Pupils equal round and reactive to light, extra-ocular motions intact. Lids and lashes normal. Conjunctiva and sclera are non-icteric and not injected. Cornea within normal limits. Periorbital areas with no swelling, redness, or edema. ENT: Nares patent. No nasal discharge, no septal abnormalities noted. Tympanic membranes are normal and external auditory canals are clear. Oropharynx with no redness, swelling, or masses, exudates, or evidence of obstruction, uvula midline. Mucous membranes moist. Neck: Trachea midline, no thyromegaly or masses palpated, and no cervical lymphadenopathy. Supple, full range of motion without nuchal rigidity, or vertebral point tenderness. No Meningismus. Chest/axilla: Normal chest wall appearance and motion. Nontender with no deformity. No lesions are appreciated. Cardiovascular: Regular rate and rhythm with a normal S1 and S2. No gallops, murmurs, or rubs. Normal PMI, no JVD. No pulse deficits. Respiratory: Lungs have equal breath sounds bilaterally, clear to auscultation and percussion. No rales, rhonchi or wheezes noted. No increased work of breathing, no retractions or nasal flaring. Back: No spinal tenderness. No costovertebral tenderness. Full range of motion. Male : Normal genitalia with no discharge or lesions. Skin: Warm, dry with normal turgor. Normal color with no rashes, no lesions, and no evidence of cellulitis. MS/ Extremity: Pulses equal, no cyanosis. Neurovascular intact. Full, normal range of motion. Neuro: Awake and alert, GCS 15, oriented to person, place, time, and situation. Cranial nerves II-XII grossly intact. Motor strength 5/5 in all extremities. Sensory grossly intact. Cerebellar exam normal. Normal gait. Psych: Awake, alert, with orientation to person, place and time. Behavior, mood, and affect are within normal limits. 21:41 Abdomen/GI: Inspection: abdomen appears normal, Bowel sounds: normal, Palpation: moderate abdominal tenderness, in the epigastric area, right upper quadrant and left upper quadrant, Liver: no appreciated palpable abnormalities, Hernia: not appreciated. 23:56 ECG was reviewed by the Attending Physician. [facility] Vital Signs: 20:48 BP 141 / 90; Pulse 96; Resp 20; Temp 98.3; Pulse Ox 100% on R/A; Pain 10/10; ll1 03/07 00:00 BP 143 / 79; Pulse 92; Resp 16; Pulse Ox 100% on R/A; jb4 00:30 BP 125 / 69; Pulse 87; Resp 16; Pulse Ox 100% on R/A; jb4 01:30 BP 131 / 88; Pulse 90; Resp 16; Pulse Ox 100% ; jb4 02:30 BP 126 / 77; Pulse 87; Resp 16; Pulse Ox 100% on R/A; Weight 89.49 kg (M); Height 5 ft. jb4 8 in. (172.72 cm) (R); 02:30 Body Mass Index 30.00 (89.49 kg, 172.72 cm) jb4 MDM: 03/06 21:12 Patient medically screened. [facility] 21:44 Differential diagnosis: abnormal EKG, acute myocardial infarction, cholecystitis, erlin Cholelithiasis hiatal hernia, pancreatitis, peptic ulcer disease, stable angina. HEART Score: History: ECG: Non specific repolarization disturbance / LBTB / PM (1), Age: > 45 and < 65 years (1), Risk Factors: > or = 3 Risk factors for atherosclerotic disease (2). The patient was not given aspirin in the Emergency Department. The patient's deep vein thrombosis risk score was calculated as follows: Total Score: 0. This patient was found to be at low risk for a deep vein thrombosis by using the Well's assessment criteria. The patient's pulmonary embolism risk score was calculated as follows: Total Score: 0-2 points. This patient was found to be at low risk for a pulmonary embolism by using the Well's assessment criteria. JESSICA Risk Score: TOTAL SCORE = 0. Data reviewed: vital signs, nurses notes, lab test result(s), EKG, radiologic studies, CT scan, plain films. Data interpreted: quality assurance monitor final: rate is 96 beats/min, rhythm is regular. Test interpretation: by ED physician or midlevel provider: ECG, plain radiologic studies. 03/06 21:40 Order name: Basic Metabolic Panel [facility] 03/06 21:40 Order name: CBC with Diff [facility] 03/06 21:40 Order name: LFT's [facility] 03/06 21:40 Order name: Magnesium [facility] 03/06 21:40 Order name: NT PRO-BNP [facility] 03/06 21:40 Order name: PT-INR; Complete Time: 00:59 [facility] 03/06 21:40 Order name: Troponin (emerg Dept Use Only) [facility] 03/06 21:40 Order name: Lipase [facility] 03/06 21:40 Order name: COVID-19 [facility] 03/06 21:47 Order name: ETOH Level; Complete Time: 00:59 [facility] 03/06 23:30 Order name: Lipid Profile; Complete Time: 01:04 [facility] 03/07 00:23 Order name: Manual Differential [facility] 03/07 00:51 Order name: LDL, Direct; Complete Time: 01:04 [facility] 03/07 01:47 Order name: Urine Dipstick--Ancillary (enter results) 2 03/07 01:58 Order name: LDH la1 03/07 02:31 Order name: SARS-COV-2 RT PCR [facility] 03/07 02:58 Order name: Lactic Dehydrogenase [facility] 03/07 03:20 Order name: Glucose, Ancillary Testing [facility] 03/07 03:50 Order name: Urine Dipstick-Ancillary [facility] 03/07 04:19 Order name: Glucose, Ancillary Testing [facility] 03/07 05:20 Order name: CBC with Automated Diff [facility] 03/07 05:21 Order name: Lipid Profile [facility] 03/07 05:25 Order name: Glucose, Ancillary Testing [facility] 03/07 05:34 Order name: LDL, Direct [facility] 03/07 05:45 Order name: Comprehensive Metabolic Panel [facility] 03/07 05:45 Order name: T4 Free [facility] 03/07 05:45 Order name: Magnesium [facility] 03/07 05:45 Order name: Thyroid Stimulating Hormone [facility] 03/07 06:13 Order name: Glucose, Ancillary Testing [facility] 03/06 21:40 Order name: XRAY Chest (1 view) [facility] 03/06 21:40 Order name: EKG; Complete Time: 21:41 [facility] 03/06 21:40 Order name: Cardiac monitoring; Complete Time: 22:22 [facility] 03/06 21:40 Order name: EKG - Nurse/Tech; Complete Time: 22:22 [facility] 03/06 21:40 Order name: IV Saline Lock; Complete Time: 22:22 [facility] 03/06 21:40 Order name: Labs collected and sent; Complete Time: 22:22 [facility] 03/06 21:40 Order name: O2 Per Protocol; Complete Time: 22:22 [facility] 03/06 21:40 Order name: O2 Sat Monitoring; Complete Time: 23:20 [facility] 03/06 21:40 Order name: CT Abd/Pelvis - IV Contrast Only [facility] 03/06 21:40 Order name: Urine Dipstick-Ancillary (obtain specimen); Complete Time: 01:45 [facility] 03/07 07:24 Order name: Glucose, Ancillary Testing [facility] 03/07 08:16 Order name: Glucose, Ancillary Testing [facility] 03/07 09:36 Order name: Glucose, Ancillary Testing [facility] 03/07 10:32 Order name: Glucose, Ancillary Testing [facility] 03/07 11:17 Order name: Triglycerides Level [facility] 03/07 11:27 Order name: LDL, Direct [facility] 03/07 11:39 Order name: Glucose, Ancillary Testing [facility] 03/07 12:21 Order name: Glucose, Ancillary Testing [facility] 03/07 13:16 Order name: Glucose, Ancillary Testing [facility] 03/07 14:21 Order name: Glucose, Ancillary Testing [facility] 03/07 15:21 Order name: Glucose, Ancillary Testing [facility] 03/07 16:20 Order name: Glucose, Ancillary Testing [facility] EC:56 Rate is 97 beats/min. Rhythm is regular. QRS [place] is Normal. [place] interval is normal. QRS erlin interval is normal. QT interval is normal. No Q waves. T waves are Normal. No ST changes noted. Clinical impression: Normal ECG and No evidence of ischemia. Interpreted by me. Reviewed by me. Administered Medications: 22:21 Drug: NS 0.9% 1000 ml Route: IV; Rate: 1 bolus; Site: right antecubital; mg2 03/07 00:00 Follow up: Response: No adverse reaction; IV Status: Completed infusion; IV Intake: jb4 1000ml 03/06 22:21 Drug: NS 0.9% 1000 ml Route: IV; Rate: 1 bolus; Site: right antecubital; mg2 03/07 00:00 Follow up: Response: No adverse reaction; IV Status: Completed infusion; IV Intake: jb4 1000ml 03/06 22:21 Drug: Dilaudid 1 mg Route: IVP; Site: right antecubital; mg2 22:50 Follow up: Response: No adverse reaction; Pain is decreased; RASS: Alert and Calm (0) jb4 22:21 Drug: Zofran (Ondansetron) 4 mg Route: IVP; Site: right antecubital; mg2 22:50 Follow up: Response: No adverse reaction; Nausea is decreased jb4 22:21 Drug: Pepcid 20 mg Route: IVP; Site: right antecubital; mg2 22:50 Follow up: Response: No adverse reaction jb4 23:59 Drug: Dilaudid 1 mg Route: IVP; Site: right antecubital; jb4 03/07 00:30 Follow up: Response: No adverse reaction; RASS: Alert and Calm (0) 4 00:45 Drug: Dilaudid 1 mg Route: IVP; Site: right antecubital; jb4 01:15 Follow up: Response: No adverse reaction; Pain is decreased; RASS: Alert and Calm (0) jb4 Disposition: 03/07/20 00:00 Hospitalization ordered by Arpan Mckeon for Inpatient Admission. Preliminary diagnosis are Acute pancreatitis, Hyperlipidemia, unspecified, Pseudocyst of pancreas, Type 2 diabetes mellitus. - Bed requested for Intensive Care Unit. - Status is Inpatient Admission. dm5 - Condition is Fair. - Problem is new. - Symptoms have improved. Signatures: Dispatcher [employer] [facility] Annalise Rodriguez, RN RN dm5 Bret Lopez MD MD cha Attema, Lee, SENIOR ANALYTIC CONSULTANT-C SENIOR ANALYTIC CONSULTANT-Cla1 Marie Donaldson RN RN Walter Fregoso RN RN jb4 Guzman Hyman RN RN mg2 Hernán Ramirez RN RN ll1 Corrections: (The following items were deleted from the chart) 03/06 23:51 23:30 LIPID PROFILE+C.LAB.BRZ ordered. [facility] 03/07 00:00 03/06 23:52 Lipid Profile ordered. [facility] 03/07 01:44 00:00 Hospitalization Ordered by Arpan Mckeon MD for Inpatient Admission. Preliminary eriln diagnosis is Acute pancreatitis; Hyperlipidemia, unspecified. Bed requested for Telemetry/MedSurg (Inpatient). Status is Inpatient Admission. Condition is Fair. Problem is new. Symptoms have improved. erlin 01:47 01:44 03/07/2020 00:00 Hospitalization Ordered by Arpan Mckeon MD for Inpatient cg Admission. Preliminary diagnosis is Acute pancreatitis; Hyperlipidemia, unspecified; Pseudocyst of pancreas; Type 2 diabetes mellitus. Bed requested for Telemetry/MedSurg (Inpatient). Status is Inpatient Admission. Condition is Fair. Problem is new. Symptoms have improved. erlin 17:03 01:47 03/07/2020 00:00 Hospitalization Ordered by Arpan Mckeon MD for Inpatient dm5 Admission. Preliminary diagnosis is Acute pancreatitis; Hyperlipidemia, unspecified; Pseudocyst of pancreas; Type 2 diabetes mellitus. Bed requested for [facility] ER HOLD. Status is Inpatient Admission. Condition is Fair. Problem is new. Symptoms have improved. cg 17:03 17:03 03/07/2020 00:00 Hospitalization Ordered by Arpan Mckeon MD for Inpatient dm5 Admission. Preliminary diagnosis is Acute pancreatitis; Hyperlipidemia, unspecified; Pseudocyst of pancreas; Type 2 diabetes mellitus. Bed requested for Intensive Care Unit. Status is Inpatient Admission. Condition is Fair. Problem is new. Symptoms have improved. dm5
[2020-03-07] MEDS ORDERED: HYDROMORPHONE HCL 1 MG/ML INJ ONE ×2 (00:10→00:58)
[2020-03-07 00:30] LABS: ALT/SGPT 26 U/L (12-78); Albumin 3.7 g/dL (3.4-5.0); Alkaline Phosphatase 81 U/L (45-117); BUN Blood Urea Nitrogen 18 mg/dL (7-18); Bicarbonate 24 mmol/L (21-32); Bilirubin Direct < 0.1 mg/dL (0-0.2); Bilirubin Total 0.8 mg/dL (0.2-1.0); Glucose Level 390 mg/dL (74-106); Lipase 1070 U/L (73-393); NT PRO-BNP 25 pg/mL (<125); Protein, Total 8.2 g/dL (6.4-8.2); Sodium Level 139 mmol/L (136-145); Troponin (Emerg Dept Use Only) < 0.02 ng/mL (0.0-0.045)
[2020-03-07 00:32] LABS: Potassium 4.6 mmol/L (3.5-5.1)
[2020-03-07 00:33] LABS: AST/SGOT 25 U/L (15-37); Magnesium 2.3 mg/dL (1.8-2.4)
[2020-03-07 00:47] LABS: HDL Cholesterol 39 mg/dL (40-60)
[2020-03-07 01:01] LABS: LDL, Direct 114 mg/dL (100-129)
[2020-03-07 01:04] LABS: Blood Morphology Comment NOT SEEN (NOT SEEN); Platelet Estimate ADEQ
[2020-03-07] MEDS ORDERED: GLUCAGON 1 MG/VIAL IM PRN (01:06)
[2020-03-07] MEDS ORDERED: D50W 25 GM/50 ML SYRINGE IV PRN (01:06)
[2020-03-07] MEDS ORDERED: ACETAMINOPHEN 500 MG TAB PO PRN (01:06)
[2020-03-07] MEDS ORDERED: INSULIN -REGULAR HUMAN 100 UNIT in NA CHLORIDE 0.9% 100 ML IV SCH ×2 (01:15→08:00)
--- NOTE | 2020-03-07 02:00 | P.HP ---
Certification for Inpatient Patient admitted to: Inpatient With expected LOS: >2 Midnights Patient will require the following post-hospital care: None Practitioner: I am a practitioner with admitting privileges, knowledge of patient current condition, hospital course, and medical plan of care. Services: Services provided to patient in accordance with Admission requirements found in Title 42 Section 412.3 of the Code of Federal Regulations <AngeayushEpi - Last Filed: 03/07/20 01:55> Patient History Date of Service: 03/07/20 Reason for admission: Acute pancreatitis History of Present Illness: 45-year-old male with history of diabetes mellitus type 2, hypertension, pancreatitis presents emergency department for upper abdominal pain radiating to the back. Patient was evaluated in the emergency department found to have acute pancreatitis, lipase 1070 white count within normal limits hemoglobin 12.1 hematocrit 37.9 patient with significantly elevated triglycerides 4689. Patient denies alcohol abuse, has had cholecystectomy. Patient vital signs stable in the ER although he is in a significant amount of pain, not tolerating p.o. fluids at this time. ED provider wishes to admit patient for further evaluation and management. When I saw the patient in the ER he was awake, alert, oriented x3. Patient does appear very dry, and a seen in significant amount of discomfort. Patient does not appear septic at this time. Will admit for further evaluation and management. 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 and lives with his - Family History Sister -: Diabetes, Cancer Mother -: Diabetes Brother -: GI disease, Diabetes Notes: Pancreatitis - Social History Smoking Status: Never smoker Alcohol use: No CD- Drugs: No Caffeine use: Yes Place of Residence: Home <Epi Castanon - Last Filed: 03/07/20 01:55> Date of Service: 03/07/20 <Arpan Mckeon - Last Filed: 03/08/20 07:06> Allergies No Known Allergies Allergy (Verified 10/31/19 02:57) Home Medications: Insulin Aspart [Novolog Flexpen] 20 units SQ DAILY 11/01/19 Insulin Degludec [Tresiba Flextouch U-200] 30 units SQ BID 11/01/19 gemfibroziL [Gemfibrozil] 1 tab PO BID 11/01/19 Creon 24,000 Units 1 cap PO AC 11/22/19 Atorvastatin Calcium 20 mg PO DAILY 03/07/20 Fenofibrate,Micronized [Fenofibrate] 200 mg PO DAILY 03/07/20 Metformin HCl 1,000 mg PO BID 03/07/20 Pantoprazole Sodium [Protonix] 40 mg PO DAILY 03/07/20 Review of Systems 10-point ROS is otherwise unremarkable Gastrointestinal: Nausea, Vomiting, Abdominal Pain <Epi Castanon - Last Filed: 03/07/20 01:55> Physical Examination - Physical Exam General: Alert, In no apparent distress HEENT: Atraumatic, PERRLA, Other (Mucous membranes dry) Neck: Supple, 2+ carotid pulse no bruit, No LAD Respiratory: Clear to auscultation bilaterally, Normal air movement Cardiovascular: Regular rate/rhythm, Normal S1 S2 Capillary refill: <2 Seconds Gastrointestinal: Normal bowel sounds, No tenderness Musculoskeletal: No tenderness Integumentary: No rashes, No tenderness/swelling, No erythema, No warmth Neurological: Normal speech, Normal strength at 5/5 x4 extr, Normal tone - Studies Laboratory Data (last 24 hrs) 03/06/20 23:39: Triglycerides 4689 H, Cholesterol 399 H, LDL Cholesterol Direct 114, HDL Cholesterol 39 L, Cholesterol/HDL Ratio 10.23 03/06/20 23:39: PT 12.0, INR 1.02 03/06/20 23:39: WBC 8.2, Hgb 12.1 L, Hct 37.9 L, Plt Count 243 03/06/20 23:39: Sodium 139, Potassium 4.6, BUN 18, Creatinine 1.25, Glucose 390 H, Magnesium 2.3 D, Total Bilirubin 0.8, AST 25, ALT 26, Alkaline Phosphatase 81, Triglycerides Cancelled, Cholesterol Cancelled, HDL Cholesterol Cancelled, Cholesterol/HDL Ratio Cancelled, Lipase 1070 H <Epi Castanon - Last Filed: 03/07/20 01:55> Assessment and Plan - Plan Assessment Moderate acute appendicitis secondary to hypertriglyceridemia with small pseudocyst noted Diabetes mellitus type 2-insulin depend Hypertension Plan Moderate acute appendicitis secondary to hypertriglyceridemia with small pseudocyst noted: Continue with the insulin drip 0.1 units/kilogram per hr with daily triglyceride levels. Provide patient with aggressive fluids overnight either half NS or D5 half NS depending on blood sugar. P.r.n. pain and nausea medications, NPO at this time. DVT prophylaxis with Lovenox, will need to closely monitor severity of pancreatitis. Diabetes mellitus type 2-insulin depend: Continue the insulin drip and fluids at this time. Q.1 hr Accu-Cheks. Hypertension: Provide p.r.n. pain medications IV, patient NPO. Discharge Plan: Home Plan to discharge in: Greater than 2 days - Advance Directives Does patient have a Living Will: No Does patient have a Durable POA for Healthcare: No - Code Status/Comfort Care Code Status Assessed: Yes (Full code) Critical Care: No Time Spent Managing Pts Care (In Minutes): 55 <Epi Castanon - Last Filed: 03/07/20 01:55> Date of Service: 03/07/20 Agree with plan of care as mentioned above. Patient was severe hypertriglyceridemia. Patient states he has been taking all his medications. He has been known to be very noncompliant in the past. Continue insulin drip for now. Will stop that and start oral meds shortly. <Arpan Mckeon - Last Filed: 03/08/20 07:06>
[2020-03-07 02:42] VITALS: BMI 29.9
[2020-03-07] MEDS: NACHLORIDE 0.45% 1,000 ML IV SCH ×3 (03:00→12:00)
[2020-03-07] MEDS ORDERED: INSULIN -REGULAR HUMAN 50 UNIT/0.5 ML ML ONE ×3 (03:01→21:52)
[2020-03-07] MEDS ORDERED: NA CHLORIDE 0.9% 100 ML ONE ×3 (03:01→21:52)
[2020-03-07] MEDS ORDERED: NACHLORIDE 0.45% 1,000 ML IV ONE (03:12)
[2020-03-07] MEDS ORDERED: D5 0.45 NS 1,000 ML IV ONE ×3 (03:12→20:01)
[2020-03-07] MEDS: HYDROMORPHONE HCL 2 MG/ML inj IV PRN ×4 (03:23→18:35)
[2020-03-07] MEDS ORDERED: HYDROMORPHONE HCL 2 MG/ML inj ONE ×4 (03:31→18:40)
[2020-03-07 03:49] LABS: Urine Blood NEGATIVE (NEG); Urine Glucose 3+ (NEG); Urine Protein NEGATIVE (NEG); Urine pH 5.5 (5.0-7.0)
[2020-03-07 04:55] LABS: Absolute Lymphocytes (CBC) 1.5 K/uL (0.7-4.9); Basophils % 0.8 % (0-1.3); Hematocrit 35.5 % (39.6-49.0); Lymphocytes % 17.6 % (15.3-44.8); MPV 10.9 fL (7.6-11.3)
[2020-03-07 05:18] LABS: HDL Cholesterol 34 mg/dL (40-60)
[2020-03-07 05:33] LABS: LDL, Direct 114 mg/dL (100-129)
[2020-03-07 05:44] LABS: ALT/SGPT 24 U/L (12-78); Albumin 3.6 g/dL (3.4-5.0); Alkaline Phosphatase 75 U/L (45-117); BUN Blood Urea Nitrogen 14 mg/dL (7-18); Bicarbonate 16 mmol/L (21-32); Bilirubin Total 0.8 mg/dL (0.2-1.0); Glucose Level 244 mg/dL (74-106); Protein, Total 7.8 g/dL (6.4-8.2); Sodium Level 143 mmol/L (136-145)
[2020-03-07 05:45] LABS: AST/SGOT 25 U/L (15-37); Magnesium 2.3 mg/dL (1.8-2.4); Potassium 3.8 mmol/L (3.5-5.1)
[2020-03-07] MEDS: D5 0.45 NS 1,000 ML IV SCH ×5 (07:00→19:52)
--- NOTE | 2020-03-07 08:21 | RAD REPORT ---
EXAM DESCRIPTION: RAD - Chest Single View - 03/06/2020 10:42 pm CLINICAL HISTORY: CHEST PAIN COMPARISON: Portable October 29 TECHNIQUE: AP portable chest image was obtained 03/06/2020 10:42 pm . FINDINGS: Lung volumes are low. Lung sands are clear. No failure or volume overload. Heart and vasculature are normal. No measurable pleural effusion and no pneumothorax. No acute bony abnormality seen. No acute aortic findings suspected. IMPRESSION: No acute cardiopulmonary process. No significant change from comparison study.
[2020-03-07] MEDS ORDERED: gemfibroziL 600 MG TAB PO ONE (09:23)
[2020-03-07] MEDS ORDERED: DOCOSAHEXANOIC AC/EPA 1000 MG PO ONE (09:23)
[2020-03-07] MEDS ORDERED: ENOXAPARIN 40 MG/0.4 ML SQ ONE (10:45)
[2020-03-07] MEDS: ENOXAPARIN 40 MG/0.4 ML SQ SCH (10:45)
[2020-03-07 11:27] LABS: LDL, Direct 87 mg/dL (100-129)
--- NOTE | 2020-03-07 12:01 | RAD REPORT ---
EXAM DESCRIPTION: CT - Abdomen Pelvis W Contrast - 03/07/2020 7:05 am CLINICAL HISTORY: The patient is 45 years old and is Male; ABD PAIN TECHNIQUE: Axial computed tomography images of the abdomen and pelvis with intravenous contrast. S agittal and coronal reformatted images were created and reviewed. This CT exam was performed using one or more of the following dose reduction techniques: automated exposure control, adjustment of t he mA and/or kV according to patient size, and/or use of iterative reconstruction technique. COMPARISON: CT of the abdomen and pelvis November 22, 2019 FINDINGS: LUNG BASES: Unremarkable. No mass. No consolidation. ABDOMEN: LIVER: The liver is enlarged and diffusely fatty. GALLBLADDER AND BILE DUCTS: Surgical clips are present in the right upper quadrant, consistent w ith previous cholecystectomy. PANCREAS: Extensive peripancreatic inflammation and stranding is present. A 2.9 cm low attenuati ng rounded collection at the level of the tail the pancreas is present. SPLEEN: Unremarkable. ADRENALS: Unremarkable. No mass. KIDNEYS AND URETERS: Unremarkable. The kidneys enhance symmetrically. No obstructing renal or ur eteral calculus is seen. No hydronephrosis or hydroureter. No perinephric fluid or stranding. STOMACH AND BOWEL: The stomach is distended with food contents and air. The small bowel is relat ively normal in caliber. Stool is present throughout the colon. There is no mucosal thickening or allen dence of bowel obstruction. PELVIS: APPENDIX: The appendix is normal in caliber without surrounding inflammation. BLADDER: Unremarkable. No mass. REPRODUCTIVE: Unremarkable as visualized. ABDOMEN and PELVIS: INTRAPERITONEAL SPACE: Unremarkable. No free air. No significant fluid collection. BONES/JOINTS: No acute fracture. SOFT TISSUES: The soft tissues are normal. VASCULATURE: Unremarkable. No abdominal aortic aneurysm. LYMPH NODES: Unremarkable. No enlarged lymph nodes. IMPRESSION: Findings consistent with acute pancreatitis and associated pseudocyst at the tail the pa ncreas. Electronically signed by: Giuliana Isaac MD 03/07/2020 1:36 AM SCIENTIFIC ADVISOR Due to temporary technical issues with the PACS/Fluency reporting system, reports are being signed by the in house radiologist without review as a courtesy to ensure prompt reporting. The interpreting r adiologist is fully responsible for the content of the report.
[2020-03-07] MEDS ORDERED: NA CHLORIDE 0.9% 1,000 ML IV ONE (12:11)
[2020-03-07] MEDS ORDERED: clonazePAM 0.5 MG TAB PO PRN (12:48)
[2020-03-07] MEDS ORDERED: TEMAZEPAM 15 MG CAP PO PRN (12:48)
[2020-03-07] MEDS ORDERED: NA CHLORIDE 0.9% 1,000 ML ONE (13:03)
[2020-03-07] MEDS: ONDANSETRON 4 MG/2 ML VIAL IV PRN (15:17)
[2020-03-07] MEDS ORDERED: ONDANSETRON 4 MG/2 ML VIAL ONE ×2 (15:26→21:06)
--- NOTE | 2020-03-07 16:07 | EKG ---
Test Date: 2020-03-06 Test Time: 20:41:23 Automatic Buffing Wheel Former: BIANCA MEASUREMENT RESULTS: Intervals: Rate: 97 OR: 126 QRSD: 84 QT: 338 QTc: 429 [place]: P: 56 OR: 126 QRS: 44 T: 12 INTERPRETIVE STATEMENTS: Normal sinus rhythm Normal ECG Compared to ECG 11/22/2019 09:10:22 Short OR interval no longer present Electronically Signed On 03-07-20 16:05:30 [employer]ATION[employer] by Seth Dorantes
[2020-03-07 17:54] LABS: LDL, Direct 63 mg/dL (100-129)
[2020-03-07] MEDS ORDERED: FENTANYL CITR 100 MCG/2 ML ONE (21:05)
[2020-03-08] MEDS ORDERED: D5 0.45 NS 1,000 ML IV ONE ×2 (00:08→06:02)
[2020-03-08] MEDS: D5 0.45 NS 1,000 ML IV SCH ×2 (01:01→06:12)
[2020-03-08] MEDS: HYDROMORPHONE HCL 2 MG/ML inj IV PRN ×2 (01:07→10:00)
[2020-03-08] MEDS: ONDANSETRON 4 MG/2 ML VIAL IV PRN (01:07)
[2020-03-08] MEDS ORDERED: ONDANSETRON 4 MG/2 ML VIAL ONE (01:21)
[2020-03-08] MEDS ORDERED: HYDROMORPHONE HCL 2 MG/ML inj ONE ×2 (01:21→10:14)
[2020-03-08] MEDS: NACHLORIDE 0.45% 1,000 ML IV SCH ×7 (03:00→22:51)
[2020-03-08 07:03] LABS: Absolute Lymphocytes (CBC) 1.6 K/uL (0.7-4.9); Basophils % 0.3 % (0-1.3); Hematocrit 29.9 % (39.6-49.0); Lymphocytes % 24.9 % (15.3-44.8); MPV 10.4 fL (7.6-11.3); RBC Red Blood Cell Count 3.78 M/uL (4.33-5.43)
[2020-03-08 07:57] LABS: HDL Cholesterol 44 mg/dL (40-60)
[2020-03-08 08:10] LABS: LDL, Direct 59 mg/dL (100-129)
[2020-03-08 08:21] LABS: ALT/SGPT 21 U/L (12-78); Albumin 2.6 g/dL (3.4-5.0); Alkaline Phosphatase 55 U/L (45-117); BUN Blood Urea Nitrogen 8 mg/dL (7-18); Bicarbonate 19 mmol/L (21-32); Bilirubin Total 0.4 mg/dL (0.2-1.0); Glucose Level 156 mg/dL (74-106); Lipase 284 U/L (73-393); Protein, Total 6.3 g/dL (6.4-8.2); Sodium Level 140 mmol/L (136-145)
[2020-03-08 08:22] LABS: AST/SGOT 17 U/L (15-37); Magnesium 1.9 mg/dL (1.8-2.4)
[2020-03-08 08:31] LABS: Potassium 2.9 mmol/L (3.5-5.1)
[2020-03-08] MEDS ORDERED: NA CHLORIDE 0.9% 1,000 ML IV ONE (08:37)
[2020-03-08] MEDS ORDERED: ENOXAPARIN 40 MG/0.4 ML SQ ONE (08:43)
[2020-03-08] MEDS: FENOFIBRATE 160 MG TAB PO SCH (09:07)
[2020-03-08] MEDS: gemfibroziL 600 MG TAB PO SCH ×2 (09:07→19:50)
[2020-03-08] MEDS: ENOXAPARIN 40 MG/0.4 ML SQ SCH (09:07)
[2020-03-08] MEDS ORDERED: NACHLORIDE 0.45% 1,000 ML IV ONE ×2 (09:12→15:37)
[2020-03-08] MEDS: KCL 20 MEQ/100 mL IVPB 20 MEQ/100 ML BAG IV SCH ×3 (09:23→17:49)
[2020-03-08] MEDS ORDERED: KCL 20 MEQ/100 mL IVPB 20 MEQ/100 ML BAG IV ONE ×2 (09:37→13:34)
[2020-03-08] MEDS ORDERED: KCL 20 MEQ/100 mL IVPB 20 MEQ/100 ML BAG IV SCH (18:00)
[2020-03-08] MEDS ORDERED: POTASSIUM CL SA 10 MEQ TAB PO ONE (22:53)
[2020-03-09] MEDS: NACHLORIDE 0.45% 1,000 ML IV SCH ×2 (02:18→08:35)
[2020-03-09 07:36] LABS: Absolute Lymphocytes (CBC) 1.2 K/uL (0.7-4.9); Basophils % 0.4 % (0-1.3); Hematocrit 32.1 % (39.6-49.0); Lymphocytes % 35.5 % (15.3-44.8); MPV 10.3 fL (7.6-11.3); RBC Red Blood Cell Count 3.99 M/uL (4.33-5.43)
[2020-03-09 08:01] VITALS: BP 122/65; TEMP 97.4
[2020-03-09 08:01] LABS: ALT/SGPT 23 U/L (12-78); AST/SGOT 16 U/L (15-37); Albumin 2.6 g/dL (3.4-5.0); Alkaline Phosphatase 54 U/L (45-117); BUN Blood Urea Nitrogen 5 mg/dL (7-18); Bicarbonate 23 mmol/L (21-32); Bilirubin Total 0.4 mg/dL (0.2-1.0); Glucose Level 165 mg/dL (74-106); HDL Cholesterol 41 mg/dL (40-60); Lipase 158 U/L (73-393); Magnesium 1.9 mg/dL (1.8-2.4); Potassium 3.3 mmol/L (3.5-5.1); Protein, Total 6.3 g/dL (6.4-8.2); Sodium Level 140 mmol/L (136-145)
[2020-03-09 08:15] LABS: LDL, Direct 114 mg/dL (100-129)
[2020-03-09] MEDS: gemfibroziL 600 MG TAB PO SCH (08:35)
[2020-03-09] MEDS: ENOXAPARIN 40 MG/0.4 ML SQ SCH (08:36)
[2020-03-09] MEDS: FENOFIBRATE 160 MG TAB PO SCH (08:36)
[2020-03-09 08:41] VITALS: O2SAT 98
[2020-03-09] MEDS ORDERED: POTASSIUM 25 MEQ EFFERV TAB PO ONE (08:43)
--- NOTE | 2020-03-09 08:48 | P.DS ---
Discharge Date: 03/09/20 Disposition: ROUTINE DISCHARGE Discharge Condition: GOOD Reason for Admission: Acute pancreatitis - Problems (1) Acute pancreatitis Onset Date: 03/21/14 Current Visit: No Status: Acute Qualifiers: Pancreatitis type: other Acute pancreatitis complication: no infection or necrosis Qualified Code(s): K85.80 - Other acute pancreatitis without necrosis or infection (2) hypertriglyceridemia induce pancreatitis Onset Date: 07/08/17 Current Visit: No Status: Acute (3) Diabetes mellitus Onset Date: 11/14/16 Current Visit: No Status: Chronic Qualifiers: Diabetes mellitus complication status: with hyperglycemia (4) Fatty liver Onset Date: 11/14/16 Current Visit: No Status: Chronic Vital Signs/Physical Exam: Temp Pulse Resp BP Pulse Ox 97.4 F 70 16 122/65 98 03/09/20 08:48 03/09/20 08:48 03/09/20 08:48 03/09/20 08:48 03/09/20 08:48 Laboratory Data at Discharge: WBC 3.4 K/uL (4.3-10.9) L D 03/09/20 07:00 Hgb 10.6 g/dL (13.6-17.9) L 03/09/20 07:00 Hct 32.1 % (39.6-49.0) L 03/09/20 07:00 Plt Count 151 K/uL (152-406) L 03/09/20 07:00 PT 12.0 SECONDS (9.5-12.5) 03/06/20 23:39 INR 1.02 03/06/20 23:39 Sodium 140 mmol/L (136-145) 03/09/20 07:00 Potassium 3.3 mmol/L (3.5-5.1) L 03/09/20 07:00 BUN 5 mg/dL (7-18) L 03/09/20 07:00 Creatinine 0.61 mg/dL (0.55-1.3) 03/09/20 07:00 Glucose 165 mg/dL (74-106) H 03/09/20 07:00 Magnesium 1.9 mg/dL (1.8-2.4) 03/09/20 07:00 Total Bilirubin 0.4 mg/dL (0.2-1.0) 03/09/20 07:00 AST 16 U/L (15-37) 03/09/20 07:00 ALT 23 U/L (12-78) 03/09/20 07:00 Alkaline Phosphatase 54 U/L (45-117) 03/09/20 07:00 Triglycerides 518 mg/dL (<150) H 03/09/20 07:00 Cholesterol 276 mg/dL (<200) H 03/09/20 07:00 LDL Cholesterol Direct 114 mg/dL (100-129) 03/09/20 07:00 HDL Cholesterol 41 mg/dL (40-60) 03/09/20 07:00 Cholesterol/HDL Ratio 6.73 03/09/20 07:00 Lipase 158 U/L (73-393) 03/09/20 07:00 Home Medications: Insulin Aspart [Novolog Flexpen] 20 units SQ DAILY 11/01/19 Insulin Degludec [Tresiba Flextouch U-200] 30 units SQ BID 11/01/19 gemfibroziL [Gemfibrozil] 1 tab PO BID 11/01/19 Fenofibrate,Micronized [Fenofibrate] 200 mg PO DAILY 03/07/20 Metformin HCl 1,000 mg PO BID 03/07/20 Pantoprazole Sodium [Protonix] 40 mg PO DAILY 03/07/20 Creon 24,000 Units 1 cap PO AC #90 03/09/20 clonazePAM [Klonopin*] 0.5 mg PO TID PRN #30 tab 03/09/20 gemfibroziL [Lopid*] 600 mg PO BID #60 tab 03/09/20 New Medications: Creon 24,000 Units 1 cap PO AC #90 clonazePAM [Klonopin*] 0.5 mg PO TID PRN #30 tab PRN Reason: Anxiety gemfibroziL [Lopid*] 600 mg PO BID #60 tab Patient Discharge Instructions: OK TO DC IV AND DC HOME. FOLLOW-UP WITH PRIMARY CARE PROVIDER IN 1-2 WEEKS. FOLLOW-UP WITH ironing worker IN 1-2 WEEKS. RETURN TO THE ER IF symptoms worsen. CALL or TEXT DR. BLANCA AT [phone] IF ANY QUESTIONS REGARDING HOSPITAL STAY. PLEASE CALL THE FLOOR AT [phone] IF ANY MEDICATION OR NURSING QUESTIONS. Diet: low fat Activity: Ad stanley Followup: NONE,NONE [Primary Care Provider] -
--- NOTE | 2020-03-09 08:48 | P.PN ---
Subjective Date of Service: 03/08/20 Patient doing better today. Pain better as well. Start on clear liquid diet Review of Systems 10-point ROS is otherwise unremarkable Physical Examination - Vital Signs Temperature: 97.4 F Blood Pressure: 122/65 Pulse: 70 Respirations: 16 Pulse Ox (%): 98 - Physical Exam General: Alert, In no apparent distress, Oriented x3 Respiratory: Clear to auscultation bilaterally, Normal air movement Cardiovascular: Regular rate/rhythm, Normal S1 S2, No murmurs Gastrointestinal: Normal bowel sounds, Soft and benign, Non-distended, Tenderness (Minimal epigastric tenderness) Musculoskeletal: No clubbing, No swelling, No tenderness Neurological: Normal strength at 5/5 x4 extr, Sensation intact, Cranial nerves 3-12 intact - Studies Medications List Reviewed: Yes Assessment & Plan - Problems (Diagnosis) (1) Acute pancreatitis Onset Date: 03/21/14 Current Visit: No Status: Acute Qualifiers: Pancreatitis type: other Acute pancreatitis complication: no infection or necrosis Qualified Code(s): K85.80 - Other acute pancreatitis without necrosis or infection (2) hypertriglyceridemia induce pancreatitis Onset Date: 07/08/17 Current Visit: No Status: Acute (3) Diabetes mellitus Onset Date: 11/14/16 Current Visit: No Status: Chronic Qualifiers: Diabetes mellitus complication status: with hyperglycemia (4) Fatty liver Onset Date: 11/14/16 Current Visit: No Status: Chronic - Plan Plan: 1. Continue with IV hydration 2. Continue with pain control 3. Anti emetics 4. Out of bed and ambulate 5. Clear liquid diet 6. Monitor lipase and triglycerides 7. Discuss with patient regarding compliance 8. Refrain from all alcohol use 9. GI and DVT prophylaxis Discharge Plan: Home Plan to discharge in: 48 Hours - Advance Directives Does patient have a Living Will: No Does patient have a Durable POA for Healthcare: No - Code Status/Comfort Care Code Status Assessed: Yes Code Status: Full Code Critical Care: No Time Spent Managing PTS Care (In Minutes): 25
== END 2020-03-09 11:20 | disposition home or self-care (01) | DRG 439 ==
LOC: ER 20:31 → ERHOLD 03-07 01:08 → 2ND 03-08 16:32
PROVIDERS: ADMIT Hospitalist; ATTEND Hospitalist
DX: K85.80 Other acute pancreatitis without necrosis or infection (principal); K86.3 Pseudocyst of pancreas; E78.5 Hyperlipidemia, unspecified; E11.65 Type 2 diabetes mellitus with hyperglycemia; I10 Essential (primary) hypertension; K76.0 Fatty (change of) liver, not elsewhere classified; E78.1 Pure hyperglyceridemia; Z90.49 Acquired absence of other specified parts of digestive tract; Z79.4 Long term (current) use of insulin; Z79.899 Other long term (current) drug therapy; Z20.828 Contact with and (suspected) exposure to other viral communicable diseases
CPT/HCPCS: 36415; 71045; 74177; 80048; 80053; 80061; 80076; 80320; 81003; 82947; 83615; 83690; 83735; 83880; 84132; 84439; 84443; 84478; 84484; 85025; 85610; 93005; 96361; 96374; 96375; 99285; J1170; J1650; J2405; J3010; J3480; J7030; J7799; Q9967; U0003

== ENCOUNTER 2020-04-28 13:00 | Inpatient (IN) | payer OTHER ==
--- OUTSIDE RECORDS SUMMARY | 2020-04-28 13:03 | XMS REPORT | Continuity of Care Document ---
:1975 Author Organization [facility] t Address [address] [place] [address] [place] [id number] Care Team Providers Name Role Phone Unavailable Unavailable Unavailable Problems This patient has no known problems. Allergies, Adverse Reactions, Alerts This patient has no known allergies or adverse reactions. Medications This patient has no known medications. Procedures This patient has no known procedures. Results This patient has no known results.
[2020-04-28 16:14] LABS: Absolute Lymphocytes (CBC) 1.3 K/uL (0.7-4.9); Basophils % 0.7 % (0-1.3); Hematocrit 40.2 % (39.6-49.0); MPV 10.5 fL (7.6-11.3); RBC Red Blood Cell Count 5.04 M/uL (4.33-5.43)
[2020-04-28 16:38] LABS: Albumin 3.5 g/dL (3.4-5.0); Alkaline Phosphatase 90 U/L (45-117); Bicarbonate 16 mmol/L (21-32); Bilirubin Total 1.3 mg/dL (0.2-1.0); Sodium Level 132 mmol/L (136-145)
[2020-04-28] MEDS ORDERED: HYDROMORPHONE HCL 2 MG/ML inj ONE (16:40)
[2020-04-28] MEDS ORDERED: ONDANSETRON 4 MG/2 ML VIAL ONE (16:40)
[2020-04-28] MEDS ORDERED: NA CHLORIDE 0.9% 1,000 ML ONE ×2 (16:40→18:18)
[2020-04-28 16:56] LABS: ALT/SGPT 78 U/L (12-78); AST/SGOT 172 U/L (15-37); BUN Blood Urea Nitrogen 15 mg/dL (7-18); Bilirubin Direct < 0.1 mg/dL (0-0.2); Lipase 1327 U/L (73-393); Protein, Total 8.3 g/dL (6.4-8.2)
[2020-04-28 16:57] LABS: Potassium 4.9 mmol/L (3.5-5.1)
[2020-04-28 17:01] LABS: Glucose Level 467 mg/dL (74-106)
--- NOTE | 2020-04-28 17:38 | RAD REPORT ---
EXAM DESCRIPTION: CT - Abdomen Pelvis W Contrast - 04/28/2020 5:16 pm CLINICAL HISTORY: Abdominal pain COMPARISON: February 2020 TECHNIQUE: Computed axial tomography of the abdomen pelvis was obtained. 100 cc Isovue-300 was admin istered intravenously. Oral contrast was not requested which limits evaluation of bowel. All CT scans are performed using dose optimization technique as appropriate and may include automated exposure control or mA/KV adjustment according to patient size. FINDINGS: Small amount of edema surrounds the pancreatic neck and proximal body. 2.4 centimeter cyst ic mass within pancreatic tail is mildly decreased in size. Cholecystectomy. Mild fatty liver. Spleen, adrenals and kidneys unremarkable. No evidence of diverticulitis. Normal appendix. IMPRESSION: Mild pancreatitis. 2.4 centimeters pancreatic pseudocyst mildly decreased in size
--- NOTE | 2020-04-28 17:51 | ER ---
Nurse's Notes [facility] Name: Javier Rutherford Age: 45 yrs Sex: Male : 1975 Arrival Date: 04/28/2020 Time: 13:03 Bed 5 Private MD: Diagnosis: Acute pancreatitis;Diabetic Ketoacidosis;Abdominal and pelvic pain Presentation: 04/28 13:38 Chief complaint: Patient states: Álvaro started having cough and congestion and body iw aches, this morning is having pain in his LUQ, has hx of pancreatitis, no vomiting. Coronavirus screen: congestion, cough unrelated to allergies, Client presents with at least one sign or symptom that may indicate coronavirus-19. Standard/surgical mask placed on the client. Provider contacted for isolation considerations. Ebola Screen: Patient negative for fever greater than or equal to 101.5 degrees Fahrenheit, and additional compatible Ebola Virus Disease symptoms Patient denies exposure to infectious person. Patient denies travel to an Ebola-affected area in the 21 days before illness onset. No symptoms or risks identified at this time. Initial Sepsis Screen: Does the patient meet any 2 criteria? No. Patient's initial sepsis screen is negative. Does the patient have a suspected source of infection? No. Patient's initial sepsis screen is negative. Risk Assessment: Do you want to hurt yourself or someone else? Patient reports no desire to harm self or others. Onset of symptoms was April 24, 2020. 13:38 Method Of Arrival: Ambulatory iw 13:38 Acuity: HANY 3 iw Historical: - Allergies: 13:41 No Known Allergies; iw - Home Meds: 13:41 Tresiba FlexTouch U-100 100 unit/mL (3 mL) subcutaneous inpn 30 unit [Active]; Novolog iw 100 unit/mL Sub-Q soln [Active]; atorvastatin Oral once daily [Active]; fenofibrate 200 mg Oral tab 1 cap once daily [Active]; metformin 1,000 mg Oral tab 1 tab 2 times per day [Active]; - PMHx: 13:41 Diabetes - NIDDM; fatty liver; Hyperlipidemia; Pancreatitis; iw - PSHx: 13:41 Cholecystectomy; Hernia repair; Vasectomy; iw - Immunization history:: Flu vaccine is not up to date. - Social history:: Smoking status: Patient denies any tobacco usage or history of. Screenin:58 Abuse screen: Denies threats or abuse. Nutritional screening: No deficits noted. jd3 Tuberculosis screening: No symptoms or risk factors identified. Fall Risk Ambulatory Aid- None/Bed Rest/Nurse Assist (0 pts). Gait- Normal/Bed Rest/Wheelchair (0 pts) Mental Status- Oriented to own ability (0 pts). Total Morales Fall Scale indicates No Risk (0-24 pts). Assessment: 16:20 General: Appears in no apparent distress. uncomfortable, Behavior is calm, cooperative, jd3 appropriate for age. Pain: Complains of pain in abdomen Quality of pain is described as sharp, tender. Neuro: Level of Consciousness is awake, alert, obeys commands, Oriented to person, place, time, situation. Cardiovascular: Denies chest pain, Capillary refill < 3 seconds Patient's skin is warm and dry. Respiratory: Airway is patent Respiratory effort is even, unlabored, Respiratory pattern is regular, symmetrical, Denies cough, shortness of breath. GI: Abdomen is round non-distended, Abd is soft X 4 quads Abdomen is tender to palpation X 4 quads. Reports lower abdominal pain, upper abdominal pain, cramping, nausea. : No signs and/or symptoms were reported regarding the genitourinary system. EENT: No signs and/or symptoms were reported regarding the EENT system. Derm: Skin is intact, Skin is dry, Skin is normal, Skin temperature is warm. Musculoskeletal: Circulation, motion, and sensation intact. Range of motion: intact in all extremities. 16:47 Reassessment: Patient and/or family updated on plan of care and expected duration. Pain jd3 level reassessed. Patient is alert, oriented x 3, equal unlabored respirations, skin warm/dry/pink. Patient states feeling better. 17:29 Reassessment: Patient appears in no apparent distress at this time. Patient and/or jd3 family updated on plan of care and expected duration. Pain level reassessed. Patient is alert, oriented x 3, equal unlabored respirations, skin warm/dry/pink. pt reports feeling better, but pain starting to return. 18:30 Reassessment: Patient appears in no apparent distress at this time. Patient and/or jd3 family updated on plan of care and expected duration. Pain level reassessed. Patient is alert, oriented x 3, equal unlabored respirations, skin warm/dry/pink. 19:42 Reassessment: Patient appears in no apparent distress at this time. Patient and/or mg2 family updated on plan of care and expected duration. Pain level reassessed. Patient is alert, oriented x 3, equal unlabored respirations, skin warm/dry/pink. Vital Signs: 13:38 BP 138 / 100; Pulse 96; Resp 18; Temp 98.7; Pulse Ox 100% on R/A; Weight 92.99 kg; iw Height 5 ft. 8 in. (172.72 cm); Pain 10/10; 16:47 BP 135 / 99; Pulse 94; Resp 17 S; Pulse Ox 97% on R/A; jd3 17:29 BP 117 / 80; Pulse 81; Resp 17 S; Pulse Ox 97% on R/A; jd3 18:58 BP 118 / 73; Pulse 85; Resp 18 S; Pulse Ox 97% on R/A; jd3 19:42 BP 116 / 62; Pulse 78; Resp 18; Pulse Ox 100% on R/A; mg2 13:38 Body Mass Index 31.17 (92.99 kg, 172.72 cm) iw Ambreen Coma Score: 19:42 Eye Response: spontaneous(4). Verbal Response: oriented(5). Motor Response: obeys mg2 commands(6). Total: 15. ED Course: 13:03 Patient arrived in ED. as 13:39 Triage completed. iw 13:41 Arm band placed on. iw 15:15 Xavi Sanchez MD is Attending Physician. kdr 16:16 Stephen Fuentes RN is Primary Nurse. jd3 17:16 CT Abd/Pelvis - IV Contrast Only In Process Unspecified. EDMS 17:27 Inserted saline lock: 22 gauge in right antecubital area, using aseptic technique. jd3 placed by mathematical engineering technician. 17:42 Gerardo Amaya MD is Hospitalizing Provider. kdr 18:12 Marco A Gaspar DO is Hospitalizing Provider. la1 18:58 Patient has correct armband on for positive identification. Bed in low position. Call jd3 light in reach. Side rails up X 1. Adult w/ patient. Pulse ox on. NIBP on. 18:58 Inserted saline lock: 20 gauge in left hand, using aseptic technique. jd3 19:42 No provider procedures requiring assistance completed. Patient admitted, IV remains in mg2 place. 04/29 19:44 Primary Nurse role handed off by Stephen Fuentes RN tt3 04/30 01:41 Adan Resendiz, ARACELI is Primary Nurse. rr5 07:21 Primary Nurse role handed off by Adan Resendiz, RN bp 07:21 Severo Galvan, RN is Primary Nurse. bp 12:47 IV discontinued, intact, bleeding controlled, Pressure dressing applied, Pt. reported rb3 pain, redness noted at the IV site. 20 G Left hand. 12:48 Inserted saline lock: 20 gauge in left antecubital area, using aseptic technique. Blood rb3 collected. Administered Medications: 04/28 16:32 Drug: Dilaudid 2 mg Route: IVP; Site: right antecubital; jd3 17:30 Follow up: Response: No adverse reaction; RASS: Alert and Calm (0) jd3 16:32 Drug: Zofran (Ondansetron) 4 mg Route: IVP; Site: right antecubital; jd3 17:30 Follow up: Response: No adverse reaction jd3 16:32 Drug: NS 0.9% 1000 ml Route: IV; Rate: 1 bolus; Site: right antecubital; jd3 17:30 Follow up: Response: No adverse reaction; IV Status: Completed infusion jd3 18:12 Drug: Insulin Regular Human 8 units {Co-Signature: [id number] (Leonie Gaona RN).} Route: jd3 IVP; Site: right antecubital; 19:00 Follow up: Response: No adverse reaction jd3 18:13 Drug: NS 0.9% 1000 ml Route: IV; Rate: 1 bolus; Site: right antecubital; jd3 19:13 Follow up: Response: No adverse reaction; IV Status: Completed infusion jd3 18:32 Drug: Insulin Drip - (Insulin Regular Human 100 units, NS 0.9% 100 ml) {Co-Signature: kolby jl7 (Kaiden Golden RN).} Route: IV; Rate: calculated rate; Site: right antecubital; 19:13 Follow up: Response: No adverse reaction; IV Status: Infusion continued upon admission jd3 18:57 Drug: Dilaudid 1 mg Route: IVP; Site: left hand; jd3 20:00 Follow up: Response: No adverse reaction mg2 Point of Care Testing: Blood Glucose: 13:46 Blood Glucose: 382 mg/dL; iw Ranges: Outcome: 17:51 Decision to Hospitalize by Provider. kdr 20:33 Admitted to ER Hold. Please see [facility] for further documentation. mg2 20:34 Condition: good mg2 05/01 14:07 Patient left the ED. hb Signatures: Dispatcher [employer] EDMS Xavi Sanchez MD MD kdr Porsche Tavares Irene, ARACELI RN iw Epi Castanon, OUTSIDE SALES ACCOUNT MANAGER-C OUTSIDE SALES ACCOUNT MANAGER-Cla1 Alice Ledezma RN RN Stephen Fuentes RN RN jd3 Severo Galvan RN RN bp Guzman Hyman RN RN mg2 Adan Resendiz RN RN rr5 Enzo Nieves tt3 Laura Lott RN RN rb3 Leonie Gaona RN dm14 Kaiden Golden RN jl7 Corrections: (The following items were deleted from the chart) 04/28 20:33 19:42 Pulse 78bpm; Resp 18bpm; Pulse Ox 100% RA; mg2 mg2
--- NOTE | 2020-04-28 17:51 | EDPHYS ---
Physician Documentation [facility] Name: Javier Rutherford Age: 45 yrs Sex: Male : 1975 Arrival Date: 04/28/2020 Time: 13:03 Bed 5 Private MD: ED Physician Xavi Sanchez HPI: 04/28 16:04 This 45 yrs old Male presents to ER via Ambulatory with complaints of Back kdr Pain, Epigastric Pain, Cough, Congestion. 16:04 The patient presents with pain that is acute, with no known mechanism of injury. kdr 16:04 The patient presents with abdominal pain in the epigastric area, in the upper abdomen, kdr in the left upper quadrant. Onset: The symptoms/episode began/occurred last night. The symptoms radiate to left back. Associated signs and symptoms: Pertinent positives: nausea and vomiting, Pertinent negatives: diarrhea, dysuria, headache, hematuria, vomiting, vomiting blood. The symptoms are described as constant, sharp, shooting, stabbing. Modifying factors: The symptoms are alleviated by nothing, the symptoms are aggravated by breathing deeply, movement, vomiting. Severity of pain: At its worst the pain was moderate severe in the emergency department the pain has resolved. The patient has experienced similar episodes in the past, multiple times, chronically. The patient has not recently seen a physician. Historical: - Allergies: 13:41 No Known Allergies; iw - Home Meds: 13:41 Tresiba FlexTouch U-100 100 unit/mL (3 mL) subcutaneous inpn 30 unit [Active]; Novolog iw 100 unit/mL Sub-Q soln [Active]; atorvastatin Oral once daily [Active]; fenofibrate 200 mg Oral tab 1 cap once daily [Active]; metformin 1,000 mg Oral tab 1 tab 2 times per day [Active]; - PMHx: 13:41 Diabetes - NIDDM; fatty liver; Hyperlipidemia; Pancreatitis; iw - PSHx: 13:41 Cholecystectomy; Hernia repair; Vasectomy; iw - Immunization history:: Flu vaccine is not up to date. - Social history:: Smoking status: Patient denies any tobacco usage or history of. ROS: 16:04 Constitutional: Negative for fever, chills, and weight loss, Eyes: Negative for injury, kdr pain, redness, and discharge, ENT: Negative for injury, pain, and discharge, Neck: Negative for injury, pain, and swelling, Cardiovascular: Negative for chest pain, palpitations, and edema, Respiratory: Negative for shortness of breath, cough, wheezing, and pleuritic chest pain, Back: Negative for injury and pain, : Negative for injury, bleeding, discharge, and swelling, MS/Extremity: Negative for injury and deformity, Skin: Negative for injury, rash, and discoloration, Neuro: Negative for headache, weakness, numbness, tingling, and seizure activity. Psych: Negative for depression, anxiety, suicide ideation, homicidal ideation, and hallucinations, Allergy/Immunology: Negative for hives, rash, and allergies, Endocrine: Negative for neck swelling, polydipsia, polyuria, polyphagia, and marked weight changes, Hematologic/Lymphatic: Negative for swollen nodes, abnormal bleeding, and unusual bruising. 16:04 Abdomen/GI: Positive for abdominal pain, nausea and vomiting, abdominal cramps, Negative for constipation, abdominal distension, dysphagia, hematemesis, black/tarry stool, rectal pain, rectal bleeding, bowel incontinence. Exam: 16:04 Constitutional: This is a well developed, well nourished patient who is awake, alert, kdr and in mild to moderate distress. Head/Face: Normocephalic, atraumatic. Eyes: Pupils equal round and reactive to light, extra-ocular motions intact. Lids and lashes normal. Conjunctiva and sclera are non-icteric and not injected. Cornea within normal limits. Periorbital areas with no swelling, redness, or edema. Neck: Trachea midline, no thyromegaly or masses palpated, and no cervical lymphadenopathy. Supple, full range of motion without nuchal rigidity, or vertebral point tenderness. No Meningismus. Chest/axilla: Normal chest wall appearance and motion. Nontender with no deformity. No lesions are appreciated. Cardiovascular: Regular rate and rhythm with a normal S1 and S2. No gallops, murmurs, or rubs. Normal PMI, no JVD. No pulse deficits. Respiratory: Lungs have equal breath sounds bilaterally, clear to auscultation and percussion. No rales, rhonchi or wheezes noted. No increased work of breathing, no retractions or nasal flaring. Back: No spinal tenderness. No costovertebral tenderness. Full range of motion. Skin: Warm, dry with normal turgor. Normal color with no rashes, no lesions, and no evidence of cellulitis. MS/ Extremity: Pulses equal, no cyanosis. Neurovascular intact. Full, normal range of motion. Neuro: Awake and alert, GCS 15, oriented to person, place, time, and situation. Cranial nerves II-XII grossly intact. Motor strength 5/5 in all extremities. Sensory grossly intact. Cerebellar exam normal. Normal gait. Psych: Awake, alert, with orientation to person, place and time. Behavior, mood, and affect are within normal limits. 16:04 Abdomen/GI: Inspection: obese Bowel sounds: diminished, in all quadrants, Palpation: moderate abdominal tenderness, in all quadrants. Vital Signs: 13:38 BP 138 / 100; Pulse 96; Resp 18; Temp 98.7; Pulse Ox 100% on R/A; Weight 92.99 kg; iw Height 5 ft. 8 in. (172.72 cm); Pain 10/10; 16:47 BP 135 / 99; Pulse 94; Resp 17 S; Pulse Ox 97% on R/A; jd3 17:29 BP 117 / 80; Pulse 81; Resp 17 S; Pulse Ox 97% on R/A; jd3 18:58 BP 118 / 73; Pulse 85; Resp 18 S; Pulse Ox 97% on R/A; jd3 19:42 BP 116 / 62; Pulse 78; Resp 18; Pulse Ox 100% on R/A; mg2 13:38 Body Mass Index 31.17 (92.99 kg, 172.72 cm) iw Ambreen Coma Score: 19:42 Eye Response: spontaneous(4). Verbal Response: oriented(5). Motor Response: obeys mg2 commands(6). Total: 15. MDM: 16:04 Data reviewed: vital signs, nurses notes, lab test result(s), radiologic studies. kdr Counseling: I had a detailed discussion with the patient and/or guardian regarding: the historical points, exam findings, and any diagnostic results supporting the discharge/admit diagnosis, lab results, radiology results. 17:51 Patient medically screened. [facility] 04/28 13:57 Order name: Glucose, Ancillary Testing; Complete Time: 15:16 EDMS 04/28 15:17 Order name: Basic Metabolic Panel kdr 04/28 15:17 Order name: CBC with Diff kdr 04/28 15:17 Order name: Hepatic Function kdr 04/28 15:17 Order name: Lipase kdr 04/28 15:18 Order name: Basic Metabolic Panel; Complete Time: 17:35 EDMS 04/28 15:18 Order name: CBC with Automated Diff; Complete Time: 17:35 EDMS 04/28 15:18 Order name: Liver (Hepatic) Function; Complete Time: 17:35 EDMS 04/28 15:18 Order name: Lipase; Complete Time: 17:35 EDMS 04/28 16:10 Order name: COVID-19 : Document "Date of Symptom Onset" if Symptomatic. kdr 04/28 16:10 Order name: Flu kdr 04/28 17:50 Order name: Lipid Profile la1 04/28 18:54 Order name: LDL, Direct EDMS 04/28 19:36 Order name: COVID-19/FLU A+B EDMS 04/28 20:00 Order name: Glucose, Ancillary Testing EDMS 04/28 21:22 Order name: Glucose, Ancillary Testing EDMS 04/28 22:25 Order name: Glucose, Ancillary Testing EDMS 04/28 23:26 Order name: Glucose, Ancillary Testing EDMS 04/29 00:28 Order name: Glucose, Ancillary Testing EDMS 04/29 01:35 Order name: Glucose, Ancillary Testing EDMS 04/29 02:38 Order name: Glucose, Ancillary Testing EDMS 04/29 04:13 Order name: Glucose, Ancillary Testing EDMS 04/29 05:11 Order name: CBC with Automated Diff EDMS 04/29 05:16 Order name: Glucose, Ancillary Testing EDMS 04/29 06:28 Order name: Glucose, Ancillary Testing EDMS 04/29 07:06 Order name: Comprehensive Metabolic Panel EDMS 04/29 07:06 Order name: Magnesium EDMS 04/29 07:06 Order name: Lipase EDMS 04/29 07:20 Order name: Glucose, Ancillary Testing EDMS 04/29 07:30 Order name: Triglycerides Level EDMS 04/29 07:42 Order name: LDL, Direct EDMS 04/29 08:56 Order name: Glucose, Ancillary Testing EDMS 04/29 09:41 Order name: Glucose, Ancillary Testing EDMS 04/29 10:41 Order name: Glucose, Ancillary Testing EDMS 04/29 11:48 Order name: Glucose, Ancillary Testing EDMS 04/29 13:01 Order name: Glucose, Ancillary Testing EDMS 04/29 14:18 Order name: Glucose, Ancillary Testing EDMS 04/29 15:24 Order name: Glucose, Ancillary Testing EDMS 04/29 16:21 Order name: Glucose, Ancillary Testing EDMS 04/29 17:32 Order name: Glucose, Ancillary Testing EDMS 04/29 18:26 Order name: Glucose, Ancillary Testing EDMS 04/29 19:24 Order name: Glucose, Ancillary Testing EDMS 04/29 20:32 Order name: Glucose, Ancillary Testing EDMS 04/29 21:48 Order name: Glucose, Ancillary Testing EDMS 04/29 23:24 Order name: Glucose, Ancillary Testing EDMS 04/30 00:31 Order name: Glucose, Ancillary Testing EDMS 04/30 01:27 Order name: Glucose, Ancillary Testing EDMS 04/30 02:33 Order name: Glucose, Ancillary Testing EDMS 04/30 03:38 Order name: Glucose, Ancillary Testing EDMS 04/30 04:38 Order name: Glucose, Ancillary Testing EDMS 04/30 05:08 Order name: CBC with Automated Diff EDMS 04/30 05:46 Order name: Glucose, Ancillary Testing EDMS 04/30 06:15 Order name: Comprehensive Metabolic Panel EDMS 04/30 06:15 Order name: Triglycerides Level EDMS 04/30 06:15 Order name: Magnesium EDMS 04/30 06:15 Order name: Lipase EDMS 04/30 06:26 Order name: LDL, Direct EDMS 04/30 06:45 Order name: Glucose, Ancillary Testing EDMS 04/30 07:53 Order name: Glucose, Ancillary Testing EDMS 04/30 08:35 Order name: Glucose, Ancillary Testing EDMS 04/28 15:17 Order name: IV Saline Lock; Complete Time: 16:16 kdr 04/28 15:17 Order name: Labs collected and sent; Complete Time: 16:16 kdr 04/28 15:58 Order name: CT Abd/Pelvis - IV Contrast Only; Complete Time: 17:48 kdr 04/30 09:58 Order name: Glucose, Ancillary Testing EDMS 04/30 10:42 Order name: Glucose, Ancillary Testing EDMS 04/30 11:49 Order name: Glucose, Ancillary Testing EDMS 04/30 12:41 Order name: Glucose, Ancillary Testing EDMS 04/30 13:10 Order name: Potassium EDMS 04/30 14:08 Order name: Glucose, Ancillary Testing EDMS 04/30 15:39 Order name: Glucose, Ancillary Testing EDMS 04/30 16:48 Order name: Glucose, Ancillary Testing EDMS 04/30 17:35 Order name: Glucose, Ancillary Testing EDMS 04/30 18:21 Order name: Triglycerides Level EDMS 04/30 18:33 Order name: LDL, Direct EDMS 04/30 18:44 Order name: Glucose, Ancillary Testing EDMS 04/30 19:39 Order name: Glucose, Ancillary Testing EDMS 04/30 20:41 Order name: Glucose, Ancillary Testing EDMS 04/30 21:45 Order name: Glucose, Ancillary Testing EDMS 04/30 22:25 Order name: Glucose, Ancillary Testing EDMS 04/30 23:27 Order name: Glucose, Ancillary Testing EDMS 05/01 00:23 Order name: Glucose, Ancillary Testing EDMS 05/01 01:28 Order name: Glucose, Ancillary Testing EDMS 05/01 02:31 Order name: Glucose, Ancillary Testing EDMS 05/01 03:31 Order name: Glucose, Ancillary Testing EDMS 05/01 04:40 Order name: Glucose, Ancillary Testing EDMS 05/01 05:23 Order name: Glucose, Ancillary Testing EDMS 05/01 05:58 Order name: CBC with Automated Diff EDMS 05/01 06:15 Order name: Glucose, Ancillary Testing EDMS 05/01 06:27 Order name: Comprehensive Metabolic Panel EDMS 05/01 06:27 Order name: Triglycerides Level EDMS 05/01 06:27 Order name: Magnesium EDMS 05/01 06:27 Order name: Lipase EDMS 05/01 07:42 Order name: LDL, Direct EDMS 05/01 08:22 Order name: Glucose, Ancillary Testing EDMS 05/01 11:44 Order name: Glucose, Ancillary Testing EDMS Administered Medications: 16:32 Drug: Dilaudid 2 mg Route: IVP; Site: right antecubital; jd3 17:30 Follow up: Response: No adverse reaction; RASS: Alert and Calm (0) jd3 16:32 Drug: Zofran (Ondansetron) 4 mg Route: IVP; Site: right antecubital; jd3 17:30 Follow up: Response: No adverse reaction jd3 16:32 Drug: NS 0.9% 1000 ml Route: IV; Rate: 1 bolus; Site: right antecubital; jd3 17:30 Follow up: Response: No adverse reaction; IV Status: Completed infusion jd3 18:12 Drug: Insulin Regular Human 8 units {Co-Signature: [email or web address] (Leonie Gaona RN).} Route: jd3 IVP; Site: right antecubital; 19:00 Follow up: Response: No adverse reaction jd3 18:13 Drug: NS 0.9% 1000 ml Route: IV; Rate: 1 bolus; Site: right antecubital; jd3 19:13 Follow up: Response: No adverse reaction; IV Status: Completed infusion jd3 18:32 Drug: Insulin Drip - (Insulin Regular Human 100 units, NS 0.9% 100 ml) {Co-Signature: [email or web address] [email or web address] (Kaiden Golden RN).} Route: IV; Rate: calculated rate; Site: right antecubital; 19:13 Follow up: Response: No adverse reaction; IV Status: Infusion continued upon admission jd3 18:57 Drug: Dilaudid 1 mg Route: IVP; Site: left hand; jd3 20:00 Follow up: Response: No adverse reaction mg2 Point of Care Testing: Blood Glucose: 13:46 Blood Glucose: 382 mg/dL; iw Ranges: Critical Glucose Levels:Adult <50 mg/dl or >400 mg/dl <40 mg/dl or >180 mg/dl Disposition: 04/28/20 17:51 Hospitalization ordered by Marco A Gaspar for Inpatient Admission. Preliminary diagnosis are Acute pancreatitis, Diabetic Ketoacidosis, Abdominal and pelvic pain. - Bed requested for Telemetry/MedSurg (Inpatient). - Status is Inpatient Admission. hb - Condition is Fair. - Problem is an acute exacerbation. - Symptoms have improved. Signatures: Dispatcher [employer] EDMS Xavi Sanchez MD MD kdr Williams, Irene, RN RN iw Calderon, Audri RN RN aa5 Epi Castanon, MACHINE TOOL BUILDER-C MACHINE TOOL BUILDER-Cla1 Marie Donaldson, ARACELI CHARLES Alice Ledezma RN RN Stephen Fuentes RN RN jd3 Gardose, Michele RN mg2 Leonie Gaona RN dm14 Kaiden Golden RN jl7 Corrections: (The following items were deleted from the chart) 18:12 17:51 Hospitalization Ordered by Gerardo Amaya MD for Inpatient Admission. Preliminary la1 diagnosis is Acute pancreatitis; Diabetic Ketoacidosis; Abdominal and pelvic pain. Bed requested for Intensive Care Unit. Status is Inpatient Admission. Condition is Fair. Problem is an acute exacerbation. Symptoms have improved. kdr 18:29 16:10 CORONAVIRUS ordered. EDUT EDMS 18:29 16:10 Influenza Screen (A ordered. [facility] EDUT 20:09 18:12 04/28/2020 17:51 Hospitalization Ordered by Marco A Gaspar DO for Inpatient cg Admission. Preliminary diagnosis is Acute pancreatitis; Diabetic Ketoacidosis; Abdominal and pelvic pain. Bed requested for Intensive Care Unit. Status is Inpatient Admission. Condition is Fair. Problem is an acute exacerbation. Symptoms have improved. la1 / 12:09 04/28 20:09 04/28/2020 17:51 Hospitalization Ordered by Marco A Gaspra DO for Inpatient aa5 Admission. Preliminary diagnosis is Acute pancreatitis; Diabetic Ketoacidosis; Abdominal and pelvic pain. Bed requested for [facility] ER HOLD. Status is Inpatient Admission. Condition is Fair. Problem is an acute exacerbation. Symptoms have improved. cg 05/01 14:07 12:09 04/28/2020 17:51 Hospitalization Ordered by Marco A Gaspar DO for Inpatient hb Admission. Preliminary diagnosis is Acute pancreatitis; Diabetic Ketoacidosis; Abdominal and pelvic pain. Bed requested for Telemetry/MedSurg (Inpatient). Status is Inpatient Admission. Condition is Fair. Problem is an acute exacerbation. Symptoms have improved. aa5
[2020-04-28] MEDS ORDERED: GLUCAGON 1 MG/VIAL IM PRN (17:58)
[2020-04-28] MEDS ORDERED: INSULIN -REGULAR HUMAN 100 UNIT in NA CHLORIDE 0.9% 100 ML IV SCH (18:00)
[2020-04-28] MEDS ORDERED: D50W 25 GM/50 ML VIAL IV PRN (18:01)
[2020-04-28] MEDS ORDERED: INSULIN -REGULAR HUMAN 50 UNIT/0.5 ML ML ONE (18:17)
[2020-04-28 18:42] LABS: HDL Cholesterol 34 mg/dL (40-60)
[2020-04-28] MEDS ORDERED: HYDROMORPHONE HCL 1 MG/ML INJ ONE (18:59)
[2020-04-28] MEDS ORDERED: NA CHLORIDE 0.9% 100 ML ONE (18:59)
[2020-04-28 19:05] LABS: LDL, Direct 124 mg/dL (100-129)
[2020-04-28 19:36] LABS: SARS-COV-2 RT PCR NEGATIVE (NEGATIVE)
--- NOTE | 2020-04-28 20:38 | P.HP ---
Certification for Inpatient Patient admitted to: Inpatient With expected LOS: >2 Midnights Patient will require the following post-hospital care: None Practitioner: I am a practitioner with admitting privileges, knowledge of patient current condition, hospital course, and medical plan of care. Services: Services provided to patient in accordance with Admission requirements found in Title 42 Section 412.3 of the Code of Federal Regulations Patient History Date of Service: 04/28/20 Reason for admission: Pancreatitis History of Present Illness: 45-year-old male with history of diabetes mellitus type 2, hypertension, hyperlipidemia/hypertriglyceridemia, pancreatitis presents emergency department for epigastric pain. Patient reports he has been having pain since early this morning. Initial labs in the emergency department revealed glucose 467 with anion gap of 17. Due to history of hypertriglyceridemia targets lead level was obtained demonstrating triglyceride count 3314. Lipase 1327. Patient started on insulin drip in the emergency department, given IV fluids. ED provider wishes to admit patient for further evaluation and management. Allergies No Known Allergies Allergy (Verified 10/31/19 02:57) Home Medications: Insulin Aspart [Novolog Flexpen] 20 units SQ DAILY 11/01/19 Insulin Degludec [Tresiba Flextouch U-200] 30 units SQ BID 11/01/19 gemfibroziL [Gemfibrozil] 1 tab PO BID 11/01/19 Fenofibrate,Micronized [Fenofibrate] 200 mg PO DAILY 03/07/20 Metformin HCl 1,000 mg PO BID 03/07/20 Pantoprazole Sodium [Protonix] 40 mg PO DAILY 03/07/20 Creon 24,000 Units 1 cap PO AC #90 03/09/20 clonazePAM [Klonopin*] 0.5 mg PO TID PRN #30 tab 03/09/20 gemfibroziL [Lopid*] 600 mg PO BID #60 tab 03/09/20 - Past Medical/Surgical History Diabetic: Yes -: pancreatitis -: hyperlipidemia -: IDDM -: fatty liver -: fatty liver -: Hypertriglyceridemia -: Cholecystectomy -: Hernia sx -: vasectomy Psychosocial/ Personal History: 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 moist/pink Neck: Supple, 2+ carotid pulse no bruit, No LAD Respiratory: Clear to auscultation bilaterally, Normal air movement Cardiovascular: Regular rate/rhythm, Normal S1 S2 Gastrointestinal: Normal bowel sounds, Tenderness (epigastric) Musculoskeletal: No tenderness Integumentary: No rashes Neurological: Normal speech, Normal strength at 5/5 x4 extr, Normal tone, Normal affect - Studies Laboratory Data (last 24 hrs) 04/28/20 15:50: Triglycerides 3314 H, Cholesterol 389 H, LDL Cholesterol Direct 124, HDL Cholesterol 34 L, Cholesterol/HDL Ratio 11.44 04/28/20 15:50: WBC 9.30, Hgb 14.4, Hct 40.2, Plt Count 208 04/28/20 15:50: Sodium 132 L, Potassium 4.9, BUN 15, Creatinine 0.86, Glucose 467 H*, Total Bilirubin 1.3 H, AST 172 H, ALT 78, Alkaline Phosphatase 90, Lipase 1327 H Assessment and Plan - Plan Assessment Pancreatitis secondary to hypertriglyceridemia DMII with hyperglycemia HTN HLD Plan Pancreatitis secondary to hypertriglyceridemia: NPO, p.r.n. pain and nausea medications. Continue with the insulin drip until triglyceride levels lower, daily triglyceride level. Q.1h Accu-Cheks while on insulin drip. Anticipate hospitalization greater than 2 days. DVT prophylaxis Lovenox 40 mg subcutaneous once daily. DMII with hyperglycemia: A1c with morning labs. Continue insulin drip until triglyceride count is lower. Will then switch to long-acting/sliding scale insulin. NPO at this time, will advance with respect to pancreatitis. HTN: P.r.n. blood pressure medications for now as patient is NPO. HLD: Patient reports she is compliant with his Lopid, will need to restart this medication once he is tolerating p.o.. Will need to review additional options for severe hypertriglyceridemia refractory to medications on outpatient basis. Patient likely benefit from seeing assistant account executive. Discharge Plan: Home Plan to discharge in: Greater than 2 days - Advance Directives Does patient have a Living Will: No Does patient have a Durable POA for Healthcare: No - Code Status/Comfort Care Code Status Assessed: Yes (FC) Critical Care: No Time Spent Managing Pts Care (In Minutes): 55
[2020-04-28] MEDS: D5 0.45 NS 1,000 ML IV SCH (21:43)
[2020-04-28] MEDS ORDERED: D5 0.45 NS 1,000 ML IV ONE (21:57)
[2020-04-29] MEDS: D5 0.45 NS 1,000 ML IV SCH ×5 (00:08→20:08)
[2020-04-29] MEDS: NACHLORIDE 0.45% 1,000 ML IV SCH ×2 (00:08→06:48)
[2020-04-29] MEDS: HYDROMORPHONE HCL 0.5 MG/0.5 ML INJ IV PRN ×4 (00:32→23:17)
[2020-04-29] MEDS ORDERED: HYDROMORPHONE HCL 0.5 MG/0.5 ML INJ ONE ×4 (00:41→23:04)
[2020-04-29] MEDS: ONDANSETRON 4 MG/2 ML VIAL IV PRN (03:25)
[2020-04-29] MEDS ORDERED: ONDANSETRON 4 MG/2 ML VIAL ONE (03:39)
[2020-04-29] MEDS ORDERED: D5 0.45 NS 1,000 ML IV ONE ×4 (03:45→23:11)
[2020-04-29] MEDS ORDERED: HYDROMORPHONE HCL 1 MG/ML INJ ONE ×2 (04:21→08:49)
[2020-04-29] MEDS ORDERED: NA CHLORIDE 0.9% 100 ML ONE (04:21)
[2020-04-29] MEDS: HYDROMORPHONE HCL 1 MG/ML INJ IV PRN ×2 (04:30→08:45)
[2020-04-29 05:07] LABS: Absolute Lymphocytes (CBC) 1.6 K/uL (0.7-4.9); Basophils % 0.3 % (0-1.3); Hematocrit 34.8 % (39.6-49.0); Lymphocytes % 27.8 % (15.3-44.8); MPV 10.1 fL (7.6-11.3); RBC Red Blood Cell Count 4.32 M/uL (4.33-5.43)
[2020-04-29 07:04] LABS: ALT/SGPT 23 U/L (12-78); Albumin 3.2 g/dL (3.4-5.0); Alkaline Phosphatase 73 U/L (45-117); BUN Blood Urea Nitrogen 15 mg/dL (7-18); Bicarbonate 24 mmol/L (21-32); Bilirubin Total 0.5 mg/dL (0.2-1.0); Glucose Level 147 mg/dL (74-106); Lipase 1059 U/L (73-393); Protein, Total 6.8 g/dL (6.4-8.2); Sodium Level 143 mmol/L (136-145)
[2020-04-29 07:05] LABS: AST/SGOT 16 U/L (15-37); Potassium 3.5 mmol/L (3.5-5.1)
[2020-04-29] MEDS ORDERED: POTASSIUM CL SA 10 MEQ TAB PO ONE (07:27)
[2020-04-29 07:42] LABS: LDL, Direct 63 mg/dL (100-129)
[2020-04-29] MEDS ORDERED: KCL 20 MEQ/100 mL IVPB 20 MEQ/100 ML BAG IV SCH (08:00)
[2020-04-29] MEDS ORDERED: KCL 20 MEQ/100 mL IVPB 20 MEQ/100 ML BAG IV ONE (08:10)
[2020-04-29] MEDS: ENOXAPARIN 40 MG/0.4 ML SQ SCH (08:45)
[2020-04-29] MEDS ORDERED: ENOXAPARIN 40 MG/0.4 ML SQ ONE (08:49)
--- NOTE | 2020-04-29 13:10 | P.PN ---
Subjective Date of Service: 04/29/20 Chief Complaint: Pancreatitis Subjective: Improving Physical Examination - Vital Signs Temperature: 97.8 F Blood Pressure: 102/73 Pulse: 72 Respirations: 16 Pulse Ox (%): 99 - Studies Laboratory Data (last 24 hrs) 04/28/20 15:50: Triglycerides 3314 H, Cholesterol 389 H, LDL Cholesterol Direct 124, HDL Cholesterol 34 L, Cholesterol/HDL Ratio 11.44 04/28/20 15:50: WBC 9.30, Hgb 14.4, Hct 40.2, Plt Count 208 04/28/20 15:50: Sodium 132 L, Potassium 4.9, BUN 15, Creatinine 0.86, Glucose 467 H*, Total Bilirubin 1.3 H, AST 172 H, ALT 78, Alkaline Phosphatase 90, Lipase 1327 H Assessment & Plan Discharge Plan: Home Physician Review Additional Text: Physical Exam: Alert cooperative. No nausea or vomiting Heart: Regular rate Lungs: Clear Abdomen: pain to the epigastric region improved. Ext: GROM. Impression: Recurrent Hypertriglyceridemia Pancreatitis DMII with hyperglycemia HTN HLD Plan Recurrent Hypertriglyceridemia Pancreatitis: Patient remains NPO. Continue insulin drip until triglyceride levels lower, daily triglyceride level. Q.1h Accu-Cheks while on insulin drip. DVT prophylaxis Lovenox 40 mg subcutaneous once daily. Anticipate improvement in the next 48-72 hours. DMII with hyperglycemia: A1c with morning labs. Continue insulin drip until triglyceride count is lower. Will then switch to long-acting/sliding scale insulin. NPO at this time, will advance with respect to pancreatitis. HTN: P.r.n. blood pressure medications for now as patient is NPO. HLD: Patient reports he is compliant with his Lopid, will need to restart this medication once he is tolerating p.o.. Will need to review additional options for severe hypertriglyceridemia refractory to medications on outpatient basis. Time Spent Managing Pts Care (In Minutes): 55
[2020-04-30 01:42] VITALS: BMI 30.8
[2020-04-30] MEDS: D5 0.45 NS 1,000 ML IV SCH ×4 (04:00→22:48)
[2020-04-30 05:02] LABS: Absolute Lymphocytes (CBC) 1.4 K/uL (0.7-4.9); Basophils % 0.3 % (0-1.3); Hematocrit 34.7 % (39.6-49.0); Lymphocytes % 28.3 % (15.3-44.8); MPV 9.7 fL (7.6-11.3); RBC Red Blood Cell Count 4.31 M/uL (4.33-5.43)
[2020-04-30] MEDS ORDERED: D5 0.45 NS 1,000 ML IV ONE ×5 (05:54→22:55)
[2020-04-30 06:12] LABS: ALT/SGPT 27 U/L (12-78); Albumin 2.6 g/dL (3.4-5.0); Alkaline Phosphatase 66 U/L (45-117); BUN Blood Urea Nitrogen 6 mg/dL (7-18); Bicarbonate 21 mmol/L (21-32); Bilirubin Total 0.4 mg/dL (0.2-1.0); Glucose Level 141 mg/dL (74-106); Lipase 176 U/L (73-393); Protein, Total 6.3 g/dL (6.4-8.2); Sodium Level 140 mmol/L (136-145)
[2020-04-30 06:15] LABS: AST/SGOT < 3 U/L (15-37); Magnesium 1.9 mg/dL (1.8-2.4); Potassium 3.1 mmol/L (3.5-5.1)
[2020-04-30 06:25] LABS: LDL, Direct 73 mg/dL (100-129)
[2020-04-30] MEDS: KCL 20 MEQ/100 mL IVPB 20 MEQ/100 ML BAG IV SCH ×2 (07:00→09:00)
[2020-04-30] MEDS ORDERED: NA CHLORIDE 0.9% 250 ML ONE (07:13)
[2020-04-30] MEDS: ENOXAPARIN 40 MG/0.4 ML SQ SCH (09:00)
[2020-04-30] MEDS ORDERED: KCL 20 MEQ/100 mL IVPB 20 MEQ/100 ML BAG IV ONE (09:09)
[2020-04-30] MEDS ORDERED: ENOXAPARIN 40 MG/0.4 ML SQ ONE (09:09)
[2020-04-30] MEDS ORDERED: NA CHLORIDE 0.9% 1,000 ML ONE (09:10)
--- NOTE | 2020-04-30 09:38 | P.PN ---
Subjective Date of Service: 04/30/20 Primary Care Provider: none Chief Complaint: Pancreatitis Subjective: Improving, Other (Pain to the abdomen improved. No significant nausea vomiting) Physical Examination - Vital Signs Temperature: 98.1 F Blood Pressure: 123/71 Pulse: 63 Respirations: 12 Pulse Ox (%): 100 Assessment & Plan Discharge Plan: Home Plan to discharge in: 48 Hours Physician Review Additional Text: Initial chief complaint: 45-year-old male with nausea, vomiting and abdominal pain secondary to recurrent hypertriglyceridemia pancreatitis. Physical Exam: Alert cooperative. No acute distress noted Heart: Regular rate Lungs: Clear to auscultation Abdomen: Pain to the epigastric region improved. No significant nausea or vomiting. Ext: GROM. Impression: Recurrent Hypertriglyceridemia Pancreatitis with noted 2.4 cm pancreatic pseudocyst decreased in size from last CT scan Diabetes mellitus type 2 with hyperglycemia Hypertriglyceridemia Obesity, BMI 30 Plan Recurrent Hypertriglyceridemia Pancreatitis with noted 2.4 cm pancreatic pseudocyst decreased in size from last CT scan: Patient remains NPO. Pain improved. Patient remains on insulin drip. Triglycerides improved. Originally 3300 now 934. Lipase also improved. Continue to maintain blood sugar below 200. Continue IV fluids and insulin drip. Will recheck triglycerides later today. If triglycerides below 750 and without significant abdominal pain, will consider clear liquid diet and transition off insulin drip. Continue DVT prophylaxis. Will continue to monitor and reassess. Anticipate improvement over the next 48 hr. I will turn the service over to the hospitalist team saad muller. I will go over plan of care with him. Diabetes mellitus type 2 with hyperglycemia: Will obtain A1c. Previous A1c above 10. Diabetes needs to be better controlled as an outpatient. Continue insulin drip. Will switch to long-acting/sliding scale insulin once triglycerides near normal range. Patient takes Tresiba and Metformin as outpatient. Hypertriglyceridemia: Once able to take oral intake then will restart Lopid and fish oil. Obesity, BMI 30: Patient appears to have lost some weight since the last hosp italization. Time Spent Managing Pts Care (In Minutes): 55
[2020-04-30] MEDS ORDERED: INFLUENZA VACCINE (for 3y+) 0.5 ML DOSE IMVAC ONE (10:00)
[2020-04-30] MEDS: HYDROMORPHONE HCL 1 MG/ML INJ IV PRN ×2 (12:30→17:00)
[2020-04-30] MEDS ORDERED: HYDROMORPHONE HCL 1 MG/ML INJ ONE ×2 (14:20→18:08)
[2020-04-30 18:32] LABS: LDL, Direct 88 mg/dL (100-129)
[2020-05-01] MEDS ORDERED: HYDROMORPHONE HCL 1 MG/ML INJ ONE ×2 (00:30→08:33)
[2020-05-01] MEDS: HYDROMORPHONE HCL 1 MG/ML INJ IV PRN ×3 (00:31→22:07)
[2020-05-01] MEDS ORDERED: ONDANSETRON 4 MG/2 ML VIAL ONE (00:31)
[2020-05-01] MEDS ORDERED: NA CHLORIDE 0.9% 100 ML ONE (00:31)
[2020-05-01] MEDS: ONDANSETRON 4 MG/2 ML VIAL IV PRN (00:31)
[2020-05-01] MEDS ORDERED: D5 0.45 NS 500 ML IV ONE (04:48)
[2020-05-01] MEDS: D5 0.45 NS 1,000 ML IV SCH (05:28)
[2020-05-01] MEDS ORDERED: D50W 25 GM/50 ML SYRINGE IV PRN (05:49)
[2020-05-01] MEDS ORDERED: GLUCAGON 1 MG/VIAL IM PRN (05:49)
[2020-05-01 05:50] LABS: Absolute Lymphocytes (CBC) 1.2 K/uL (0.7-4.9); Basophils % 0.3 % (0-1.3); Lymphocytes % 28.5 % (15.3-44.8); MPV 9.6 fL (7.6-11.3); RBC Red Blood Cell Count 3.92 M/uL (4.33-5.43)
[2020-05-01] MEDS: INSULIN GLARGINE 100 UNITS/ML SQ SCH ×3 (05:50→20:41)
[2020-05-01] MEDS ORDERED: INSULIN GLARGINE 100 UNITS/ML SQ ONE ×2 (06:18→08:25)
[2020-05-01 06:24] LABS: ALT/SGPT 27 U/L (12-78); AST/SGOT 20 U/L (15-37); Albumin 2.6 g/dL (3.4-5.0); Alkaline Phosphatase 63 U/L (45-117); BUN Blood Urea Nitrogen 3 mg/dL (7-18); Bicarbonate 23 mmol/L (21-32); Bilirubin Total 0.5 mg/dL (0.2-1.0); Glucose Level 116 mg/dL (74-106); Lipase 150 U/L (73-393); Magnesium 1.8 mg/dL (1.8-2.4); Protein, Total 6.1 g/dL (6.4-8.2); Sodium Level 142 mmol/L (136-145)
[2020-05-01 07:41] LABS: LDL, Direct 100 mg/dL (100-129)
[2020-05-01] MEDS: POTASSIUM CL SA 10 MEQ TAB PO SCH (08:24)
[2020-05-01] MEDS ORDERED: POTASSIUM CL SA 10 MEQ TAB PO ONE (08:25)
[2020-05-01] MEDS: ENOXAPARIN 40 MG/0.4 ML SQ SCH (08:25)
[2020-05-01] MEDS ORDERED: ENOXAPARIN 40 MG/0.4 ML SQ ONE (08:26)
--- NOTE | 2020-05-01 09:06 | P.PN ---
Subjective Date of Service: 05/01/20 Primary Care Provider: none Chief Complaint: Pancreatitis Subjective: Improving, Doing well Physical Examination - Vital Signs Temperature: 97.8 F Blood Pressure: 99/62 Pulse: 82 Respirations: 15 Pulse Ox (%): 100 Assessment & Plan Discharge Plan: Home Plan to discharge in: 48 Hours Physician Review Additional Text: Initial chief complaint: 45-year-old male with nausea, vomiting and abdominal pain secondary to recurrent hypertriglyceridemia pancreatitis. Physical Exam: Alert cooperative. No acute distress noted Heart: Regular rate Lungs: Clear to auscultation Abdomen: Pain to the epigastric region significantly improved. No significant nausea or vomiting. Ext: GROM. Impression: Recurrent Hypertriglyceridemia Pancreatitis with noted 2.4 cm pancreatic pseudocyst decreased in size from last CT scan Diabetes mellitus type 2 with hyperglycemia Hypertriglyceridemia Obesity, BMI 30 Plan Recurrent Hypertriglyceridemia Pancreatitis with noted 2.4 cm pancreatic pseudocyst decreased in size from last CT scan: Patient has significantly improved. No further nausea or vomiting. Pain improved. Triglycerides now at 463. Will discontinue insulin drip. Will start clear liquids. Change IV fluids. Will transfer patient to regular floor. Will start Lopid and fish oil. Encourage ambulation. Encourage incentive spirometer. Anticipate improvement over the next 24-48 hr. Will slowly advanced diet. Anticipate possible di scharge as early as tomorrow. I will turn the service over to the hospitalist team tomorrow. I will go over plan of care with him. Diabetes mellitus type 2 with hyperglycemia: Will obtain A1c. Previous A1c above 10. Diabetes needs to be better controlled as an outpatient. Will start Lantus. Will continue to adjust appropriately. Hypertriglyceridemia: Restart Lopid and fish oil. Obesity, BMI 30: Patient appears to have lost some weight since the last hospitalization. Time Spent Managing Pts Care (In Minutes): 55
[2020-05-01] MEDS ORDERED: HYDROCODONE/APAP 7.5/325 MG TAB PO PRN (09:11)
[2020-05-01] MEDS ORDERED: TRAMADOL HCL 50 MG TAB PO PRN (09:11)
[2020-05-01] MEDS: NACHLORIDE 0.45% 1,000 ML IV SCH ×2 (10:00→17:14)
[2020-05-01] MEDS: AMYLASE/LIPASE/PROTEASE CAP PO SCH ×3 (11:30→20:40)
[2020-05-01] MEDS ORDERED: NACHLORIDE 0.45% 1,000 ML IV ONE (11:39)
[2020-05-01] MEDS ORDERED: D50W 25 GM/50 ML VIAL IV PRN (16:00)
[2020-05-01] MEDS ORDERED: MAGNESIUM SULFATE 1 gm IVPB 1 GM/100 ML BAG IV ONE (16:00)
[2020-05-01] MEDS: HYDROMORPHONE HCL 0.5 MG/0.5 ML INJ IV PRN (16:05)
[2020-05-01] MEDS: DOCOSAHEXANOIC AC/EPA 1000 MG PO SCH ×2 (20:40→20:47)
[2020-05-01] MEDS: gemfibroziL 600 MG TAB PO SCH (20:41)
[2020-05-02] MEDS: NACHLORIDE 0.45% 1,000 ML IV SCH ×4 (02:00→22:28)
[2020-05-02] MEDS: HYDROMORPHONE HCL 0.5 MG/0.5 ML INJ IV PRN (04:25)
[2020-05-02 04:51] LABS: ALT/SGPT 28 U/L (12-78); AST/SGOT 15 U/L (15-37); Albumin 2.9 g/dL (3.4-5.0); Alkaline Phosphatase 70 U/L (45-117); BUN Blood Urea Nitrogen 6 mg/dL (7-18); Bicarbonate 25 mmol/L (21-32); Bilirubin Total 0.8 mg/dL (0.2-1.0); Glucose Level 134 mg/dL (74-106); Lipase 126 U/L (73-393); Magnesium 1.9 mg/dL (1.8-2.4); Potassium 3.4 mmol/L (3.5-5.1); Protein, Total 6.6 g/dL (6.4-8.2); Sodium Level 140 mmol/L (136-145)
[2020-05-02 05:05] LABS: LDL, Direct 126 mg/dL (100-129)
[2020-05-02] MEDS: PANTOPRAZOLE 40MG TABLET PO SCH (05:44)
[2020-05-02] MEDS ORDERED: POTASSIUM 25 MEQ EFFERV TAB PO ONE (05:46)
[2020-05-02] MEDS ORDERED: POTASSIUM CL SA 10 MEQ TAB PO ONE (06:16)
[2020-05-02] MEDS: FOLIC ACID 1 MG TABLET PO SCH (08:20)
[2020-05-02] MEDS: THIAMINE HCL 100 MG TABLET PO SCH (08:20)
[2020-05-02] MEDS: gemfibroziL 600 MG TAB PO SCH (08:20)
[2020-05-02] MEDS: DOCOSAHEXANOIC AC/EPA 1000 MG PO SCH ×3 (08:21→21:00)
[2020-05-02] MEDS: AMYLASE/LIPASE/PROTEASE CAP PO SCH ×4 (08:21→21:00)
[2020-05-02] MEDS: ENOXAPARIN 40 MG/0.4 ML SQ SCH (08:22)
[2020-05-02] MEDS: INSULIN GLARGINE 100 UNITS/ML SQ SCH ×2 (08:22→20:59)
[2020-05-02] MEDS: POTASSIUM CL SA 10 MEQ TAB PO SCH (08:25)
[2020-05-02] MEDS: HYDROMORPHONE HCL 1 MG/ML INJ IV PRN (08:33)
[2020-05-02] MEDS: TRESIBA FLEXTOUCH SQ SCH ×2 (10:00→21:00)
[2020-05-02] MEDS: INSULIN LISPRO 100 UNIT/1 ML SQ SCH (10:00)
[2020-05-02] MEDS ORDERED: gemfibroziL 600 MG TAB PO SCH (10:00)
[2020-05-02] MEDS: clonazePAM 0.5 MG TAB PO SCH ×3 (11:38→21:00)
[2020-05-02] MEDS: METFORMIN HCL 500 MG TAB PO SCH ×2 (11:39→21:00)
--- NOTE | 2020-05-02 13:17 | P.PN ---
Subjective Date of Service: 05/02/20 Chief Complaint: Pancreatitis Subjective: No new changes, Improving, Doing well Patient is doing well. Reports pain is controlled. Has not tried clear fluids this AM yet. Review of Systems 10-point ROS is otherwise unremarkable Gastrointestinal: Abdominal Pain, No Distention Physical Examination - Vital Signs Temperature: 96.7 F Blood Pressure: 126/80 Pulse: 60 Respirations: 16 Pulse Ox (%): 100 - Physical Exam General: Alert, In no apparent distress, Oriented x3, Cooperative, Obese HEENT: Atraumatic, Normocephalic, PERRLA, Mucous membr. moist/pink, EOMI Neck: Supple, 2+ carotid pulse no bruit, JVD not distended, No Thyromegaly, No LAD Respiratory: Clear to auscultation bilaterally, Normal air movement Cardiovascular: No edema, Normal pulses, Regular rate/rhythm, Normal S1 S2, No gallops, No rubs, No murmurs Capillary refill: <2 Seconds Gastrointestinal: Normal bowel sounds, Soft and benign, Non-distended, Tenderness Musculoskeletal: No clubbing, No swelling, No contractures, No erythema, No tenderness, No warmth Integumentary: No rashes, No breakdown, No significant lesion, No tenderness/swelling, No erythema, No warmth, No cyanosis Neurological: Normal gait, Normal speech, Normal strength at 5/5 x4 extr, Normal affect Lymphatics: No axilla or inguinal lymphadenopathy Assessment & Plan - Plan Pancreatitis 2/2 hypertriglyceridemia: Patient improving. No nausea or vomiting. Pain well controlled. Insulin drip discontinued. Continuing with IVF. Advancing to clear liquid diet. If tolerates, will transition to full liquid diet and then soft diet. Discharge to home pending diet advancement success. Diabetes mellitus type 2 with hyperglycemia: Will obtain A1c. Previous A1c above 10. Diabetes needs to be better controlled as an outpatient. Will start Lantus. Will continue to adjust appropriately. Hypertriglyceridemia: Continue medications Discharge Plan: Home Plan to discharge in: 24 Hours - Advance Directives Does patient have a Living Will: No Does patient have a Durable POA for Healthcare: No Critical Care: No Time Spent Managing PTS Care (In Minutes): 55
[2020-05-02 23:36] VITALS: O2SAT 99
[2020-05-03 04:12] LABS: BUN Blood Urea Nitrogen 6 mg/dL (7-18); Bicarbonate 25 mmol/L (21-32); Glucose Level 105 mg/dL (74-106); Lipase 126 U/L (73-393); Potassium 3.5 mmol/L (3.5-5.1); Sodium Level 143 mmol/L (136-145)
[2020-05-03] MEDS: NACHLORIDE 0.45% 1,000 ML IV SCH ×2 (05:57→10:00)
[2020-05-03] MEDS: PANTOPRAZOLE 40MG TABLET PO SCH (05:58)
[2020-05-03] MEDS: INSULIN LISPRO 100 UNIT/1 ML SQ SCH (08:28)
[2020-05-03] MEDS: TRESIBA FLEXTOUCH SQ SCH (08:28)
[2020-05-03] MEDS: FOLIC ACID 1 MG TABLET PO SCH (08:29)
[2020-05-03] MEDS: THIAMINE HCL 100 MG TABLET PO SCH (08:29)
[2020-05-03] MEDS: INSULIN GLARGINE 100 UNITS/ML SQ SCH (08:29)
[2020-05-03] MEDS: POTASSIUM CL SA 10 MEQ TAB PO SCH (08:30)
[2020-05-03] MEDS: METFORMIN HCL 500 MG TAB PO SCH (08:30)
[2020-05-03] MEDS: ENOXAPARIN 40 MG/0.4 ML SQ SCH (08:31)
[2020-05-03] MEDS: AMYLASE/LIPASE/PROTEASE CAP PO SCH ×2 (08:32→11:59)
[2020-05-03] MEDS: DOCOSAHEXANOIC AC/EPA 1000 MG PO SCH (08:32)
[2020-05-03] MEDS: clonazePAM 0.5 MG TAB PO SCH (08:32)
[2020-05-03] MEDS ORDERED: POTASSIUM CL SA 10 MEQ TAB PO ONE (09:00)
[2020-05-03] MEDS ORDERED: gemfibroziL 600 MG TAB PO SCH (09:00)
[2020-05-03] MEDS ORDERED: PANTOPRAZOLE 40MG TABLET PO SCH (09:00)
--- NOTE | 2020-05-03 09:33 | P.DS ---
Discharge Date: 05/03/20 Primary Care Provider: none Disposition: ROUTINE DISCHARGE Discharge Condition: GOOD Reason for Admission: Pancreatitis - Problems (1) hypertriglyceridemia induce pancreatitis Onset Date: 07/08/17 Status: Acute (2) Diabetes mellitus Onset Date: 11/14/16 Status: Chronic Qualifiers: Diabetes mellitus complication status: with hyperglycemia (3) Hypertriglyceridemia Onset Date: 11/14/16 Status: Chronic (4) Obesity (BMI 30-39.9) Onset Date: 11/14/16 Status: Chronic Brief History of Present Illness: 45-year-old male with history of diabetes mellitus type 2, hypertension, and hypertriglyceridemia induced pancreatitis presents with 1 day of epigastric pain. Initial labs in the reveal glucose 467with anion gap of 17 and triglyceride count 3314, lipase 1327. Patient started on insulin drip in the emergency department, and given IV fluids. Made NPO with PRN pain and nausea medications. Hospital Course: Pancreatitis secondary to hypertriglyceridemia: Patient continued on insulin drip with daily triglyceride levels to monitor decrease. BG checks done every hour while on insulin drip. Insulin drip discontinued with improvement of triglycerides to the 400s. Diet advanced, and patient now tolerating soft diet. No further nausea and vomiting. Pain resolved. Restarted lopid and fish oil. DMII with hyperglycemia: A1c 11.3%. Will start Lantus. HTN: Will restart BP medications outpatient. Held b/c NPO. HLD: Restarted lopid and fish oil. 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 Discharge Plan: Home Plan to discharge in: Greater than 2 days Vital Signs/Physical Exam: Temp Pulse Resp BP Pulse Ox 97.0 F 63 16 135/85 99 05/03/20 08:00 05/03/20 08:00 05/03/20 08:44 05/03/20 08:00 05/03/20 08:44 General: Alert, In no apparent distress, Oriented x3, Cooperative Respiratory: Clear to auscultation bilaterally, Normal air movement Cardiovascular: No edema, Normal pulses, Regular rate/rhythm, Normal S1 S2, No gallops, No rubs, No murmurs Capillary refill: <2 Seconds Gastrointestinal: Normal bowel sounds, Soft and benign, Non-distended, No ascites, No tenderness, No masses, No rebound, No guarding Musculoskeletal: No clubbing, No swelling, No contractures, No erythema, No tenderness, No warmth Integumentary: No rashes, No breakdown, No significant lesion, No tenderness/swelling, No erythema, No warmth, No cyanosis Neurological: Normal gait, Normal speech, Normal strength at 5/5 x4 extr, Sensation intact, Cranial nerves 3-12 intact, Normal affect Lymphatics: No axilla or inguinal lymphadenopathy Laboratory Data at Discharge: WBC 4.20 K/uL (4.3-10.9) L D 05/01/20 05:05 Hgb 10.5 g/dL (13.6-17.9) L 05/01/20 05:05 Hct 32.0 % (39.6-49.0) L 05/01/20 05:05 Plt Count 173 K/uL (152-406) 05/01/20 05:05 Sodium 143 mmol/L (136-145) 05/03/20 03:44 Potassium 3.5 mmol/L (3.5-5.1) 05/03/20 03:44 BUN 6 mg/dL (7-18) L 05/03/20 03:44 Creatinine 0.63 mg/dL (0.55-1.3) 05/03/20 03:44 Glucose 105 mg/dL (74-106) 05/03/20 03:44 Magnesium 1.9 mg/dL (1.8-2.4) 05/02/20 03:58 Total Bilirubin 0.8 mg/dL (0.2-1.0) 05/02/20 03:58 AST 15 U/L (15-37) 05/02/20 03:58 ALT 28 U/L (12-78) 05/02/20 03:58 Alkaline Phosphatase 70 U/L (45-117) 05/02/20 03:58 Triglycerides 421 mg/dL (<150) H 05/02/20 03:58 Cholesterol 389 mg/dL (<200) H 04/28/20 15:50 LDL Cholesterol Direct 126 mg/dL (100-129) 05/02/20 03:58 HDL Cholesterol 34 mg/dL (40-60) L 04/28/20 15:50 Cholesterol/HDL Ratio 11.44 04/28/20 15:50 Lipase Cancelled 05/03/20 05:00 Home Medications: Insulin Aspart [Novolog Flexpen] 20 units SQ DAILY 11/01/19 Insulin Degludec [Tresiba Flextouch U-200] 30 units SQ BID 11/01/19 Fenofibrate,Micronized [Fenofibrate] 200 mg PO DAILY 03/07/20 Metformin HCl 1,000 mg PO BID 03/07/20 Pantoprazole Sodium [Protonix] 40 mg PO DAILY 03/07/20 clonazePAM [Klonopin*] 0.5 mg PO TID PRN #30 tab 03/09/20 gemfibroziL [Lopid*] 600 mg PO BID #60 tab 03/09/20 Lipase/Protease/Amylase [Sneha Catherine 36,000 Units Capsule] 1 each PO ACHS #120 capsule. 05/02/20 traMADol HCL [Ultram*] 50 mg PO TID PRN #30 tab 05/02/20 Insulin Glargine Human [Lantus*] 20 units SQ BEDTIME #2 syr 05/03/20 New Medications: Lipase/Protease/Amylase [Sneha Catherine 36,000 Units Capsule] 1 each PO ACHS #120 capsule. Insulin Glargine Human [Lantus*] 20 units SQ BEDTIME #2 syr traMADol HCL [Ultram*] 50 mg PO TID PRN #30 tab PRN Reason: PAIN Physician Discharge Instructions: OK TO DC IV AND DC HOME FOLLOW-UP WITH PRIMARY CARE PROVIDER IN 1-2 WEEKS FOLLOW-UP WITH Maintenance Technician 2Nd Shift IN 1-2 WEEKS RETURN TO THE ER IF symptoms worsen CALL or TEXT DR. BLANCA AT [phone] IF ANY QUESTIONS REGARDING HOSPITAL STAY. PLEASE CALL THE FLOOR AT [phone] IF ANY MEDICATION OR NURSING QUESTIONS. Diet: Low-fat Activity: Fall precautions Followup: OOTTitoOT [Primary Care Provider] - Time spent managing pt's care (in minutes): 55
[2020-05-03 12:32] VITALS: BP 111/73; TEMP 97.3
== END 2020-05-03 12:43 | disposition home or self-care (01) | DRG 438 ==
LOC: ER 13:00 → ERHOLD 19:11 → 4TH 05-01 13:29
PROVIDERS: ADMIT Family Medicine; ATTEND Hospitalist
DX: K85.90 Acute pancreatitis without necrosis or infection, unspecified (principal); E11.10 Type 2 diabetes mellitus with ketoacidosis without coma; K86.3 Pseudocyst of pancreas; E78.1 Pure hyperglyceridemia; E78.5 Hyperlipidemia, unspecified; I10 Essential (primary) hypertension; E66.9 Obesity, unspecified; Z68.30 Body mass index [BMI] 30.0-30.9, adult; Z79.4 Long term (current) use of insulin; Z79.899 Other long term (current) drug therapy; Z90.49 Acquired absence of other specified parts of digestive tract; Z20.822 Contact with and (suspected) exposure to COVID-19
CPT/HCPCS: 0240U; 36415; 74177; 80048; 80053; 80061; 80076; 82947; 83036; 83690; 83735; 84132; 84478; 85025; 94010; 99285; J1170; J1650; J1815; J2405; J3475; J3480; J7030; J7050; J7799; Q9967

== ENCOUNTER 2020-07-04 10:44 | Inpatient (IN) | payer OTHER ==
--- OUTSIDE RECORDS SUMMARY | 2020-07-04 10:49 | XMS REPORT | Continuity of Care Document ---
:1975 Author Organization [facility] t Address [address] [place] [address] [place] [id number] Care Team Providers Name Role Phone Unavailable Unavailable Unavailable Problems This patient has no known problems. Allergies, Adverse Reactions, Alerts This patient has no known allergies or adverse reactions. Medications This patient has no known medications. Procedures This patient has no known procedures. Results This patient has no known results.
[2020-07-04] MEDS ORDERED: HYDROMORPHONE HCL 1 MG/ML INJ ONE ×3 (12:26→18:39)
[2020-07-04] MEDS ORDERED: NA CHLORIDE 0.9% 1,000 ML ONE (12:26)
[2020-07-04] MEDS ORDERED: ONDANSETRON 4 MG/2 ML VIAL ONE (12:26)
[2020-07-04 13:13] LABS: Albumin 4.5 g/dL (3.4-5.0); Bilirubin Direct 0.2 mg/dL (0-0.2); Bilirubin Total 1.3 mg/dL (0.2-1.0); Potassium 4.5 mmol/L (3.5-5.1); Protein, Total 8.6 g/dL (6.4-8.2)
--- NOTE | 2020-07-04 13:32 | ER ---
Nurse's Notes [facility] Name: Javier Rutherford Age: 45 yrs Sex: Male : 1975 Arrival Date: 07/04/2020 Time: 10:45 Bed 16 Private MD: Diagnosis: Acute pancreatitis, unspecified;Hyperglycemia, unspecified Presentation: 07/04 11:39 Chief complaint: Patient states: reports epigastric pain that started this morning, em reports N/V, has hx of pancreatits, had similar episode about 3 weeks ago, denies fever. Coronavirus screen: Client denies travel out of the [place] in the last 14 days. Ebola Screen: Patient negative for fever greater than or equal to 101.5 degrees Fahrenheit, and additional compatible Ebola Virus Disease symptoms Patient denies exposure to infectious person. Patient denies travel to an Ebola-affected area in the 21 days before illness onset. No symptoms or risks identified at this time. Initial Sepsis Screen: Does the patient meet any 2 criteria? No. Patient's initial sepsis screen is negative. Does the patient have a suspected source of infection? No. Patient's initial sepsis screen is negative. Risk Assessment: Do you want to hurt yourself or someone else? Patient reports no desire to harm self or others. Onset of symptoms was July 04, 2020. 11:39 Method Of Arrival: Ambulatory em 11:39 Acuity: HANY 3 em Historical: - Allergies: 11:41 No Known Allergies; em - PMHx: 11:41 Diabetes - NIDDM; fatty liver; Hyperlipidemia; Pancreatitis; em - PSHx: 11:41 Cholecystectomy; Hernia repair; Vasectomy; em - Immunization history:: Adult Immunizations up to date. - Social history:: Smoking status: Patient denies any tobacco usage or history of. Screenin:51 Abuse screen: Denies threats or abuse. Denies injuries from another. Nutritional ca1 screening: No deficits noted. Tuberculosis screening: No symptoms or risk factors identified. Fall Risk IV access (20 points). Assessment: 11:51 General: Appears in no apparent distress. uncomfortable, Behavior is anxious, crying, ca1 restless. Pain: Complains of pain in epigastric area, right upper quadrant and left upper quadrant Pain currently is 10 out of 10 on a pain scale. Pain began this morning. Neuro: Level of Consciousness is awake, alert, obeys commands, Oriented to person, place, time, situation. Cardiovascular: Heart tones S1 S2 present Capillary refill < 3 seconds Patient's skin is warm and dry. Respiratory: Airway is patent Respiratory effort is even, unlabored, Respiratory pattern is regular, symmetrical, Breath sounds are clear bilaterally. GI: Abdomen is flat, non-distended, Bowel sounds present X 4 quads. Abd is soft X 4 quads Abdomen is tender to palpation in epigastric area, right upper quadrant and left upper quadrant Reports nausea, vomiting. : No signs and/or symptoms were reported regarding the genitourinary system. EENT: No signs and/or symptoms were reported regarding the EENT system. Derm: Skin is intact, is healthy with good turgor, Skin is pink, warm \T\ dry. Musculoskeletal: Circulation, motion, and sensation intact. Capillary refill < 3 seconds. 12:33 Reassessment: Patient appears in no apparent distress at this time. Patient and/or ca1 family updated on plan of care and expected duration. Pain level reassessed. Patient is alert, oriented x 3, equal unlabored respirations, skin warm/dry/pink. General: Appears in no apparent distress. comfortable, Behavior is calm, cooperative, appropriate for age. 13:30 Reassessment: Patient appears in no apparent distress at this time. Patient and/or ca1 family updated on plan of care and expected duration. Pain level reassessed. Patient is alert, oriented x 3, equal unlabored respirations, skin warm/dry/pink. 14:18 Reassessment: Patient appears in no apparent distress at this time. Patient is alert, ca1 oriented x 3, equal unlabored respirations, skin warm/dry/pink. Hospitalist at bedside. 15:38 Reassessment: Patient appears in no apparent distress at this time. Patient and/or ca1 family updated on plan of care and expected duration. Pain level reassessed. Patient is alert, oriented x 3, equal unlabored respirations, skin warm/dry/pink. 16:30 Reassessment: Patient appears in no apparent distress at this time. Patient and/or ca1 family updated on plan of care and expected duration. Pain level reassessed. Patient is alert, oriented x 3, equal unlabored respirations, skin warm/dry/pink. 17:29 Reassessment: Patient appears in no apparent distress at this time. Patient is alert, ca1 oriented x 3, equal unlabored respirations, skin warm/dry/pink. Sent add on lab: lipid profile before calling report to nurse on the floor. 18:30 Reassessment: Patient appears in no apparent distress at this time. Patient and/or ca1 family updated on plan of care and expected duration. Pain level reassessed. Patient is alert, oriented x 3, equal unlabored respirations, skin warm/dry/pink. Vital Signs: 11:39 BP 150 / 122; Pulse 84; Resp 18; Temp 98.3; Pulse Ox 99% on R/A; Weight 90.72 kg; em Height 5 ft. 8 in. (172.72 cm); Pain 10/10; 12:14 BP 142 / 70; Pulse 91; Resp 18 S; Pulse Ox 96% on R/A; ca1 13:00 BP 148 / 70; Pulse 91; Resp 18 S; Pulse Ox 95% on R/A; ca1 14:00 BP 130 / 74; Pulse 90; Resp 18 S; Pulse Ox 97% on R/A; ca1 15:00 BP 140 / 88; Pulse 89; Resp 18 S; Pulse Ox 95% on R/A; ca1 16:00 BP 135 / 89; Pulse 89; Resp 18 S; Pulse Ox 95% on R/A; ca1 17:00 BP 146 / 68; Pulse 94; Resp 18 S; Pulse Ox 98% on R/A; ca1 18:00 BP 153 / 91; Pulse 104; Resp 18 S; Pulse Ox 95% on R/A; ca1 11:39 Body Mass Index 30.41 (90.72 kg, 172.72 cm) em ED Course: 10:45 Patient arrived in ED. am2 11:15 Pietro Lewis MD is Attending Physician. tw4 11:41 Triage completed. em 11:41 Arm band placed on. em 11:51 Jennifer Kingston, RN is Primary Nurse. ca1 11:51 Patient has correct armband on for positive identification. Placed in gown. Bed in low ca1 position. Call light in reach. Side rails up X2. Pulse ox on. NIBP on. Warm blanket given. 11:51 Initial lab(s) drawn, by me, sent to lab. Inserted saline lock: 20 gauge in right ca1 antecubital area, using aseptic technique. Blood collected. 13:16 Notified ED physician of a critical lab result(s). Glucose 420. ca1 13:31 Adan Harrington MD is Hospitalizing Provider. 07/05 07:17 Primary Nurse role handed off by Jennifer Kingston RN tw2 07:17 Sharmila Man, RN is Primary Nurse. tw2 Administered Medications: 07/04 12:07 Drug: NS 0.9% 1000 ml Route: IV; Rate: 1 bolus; Site: right antecubital; ca1 13:03 Follow up: Response: No adverse reaction; IV Status: Completed infusion; IV Intake: ca1 1000ml 12:09 Drug: Zofran (Ondansetron) 4 mg Route: IVP; Site: right antecubital; ca1 13:03 Follow up: Response: No adverse reaction; Nausea is decreased ca1 12:13 Drug: Dilaudid (HYDROmorphone) 1 mg {Note: rass 0.} Route: IVP; Site: right antecubital;ca1 13:03 Follow up: Response: No adverse reaction; Pain is decreased; RASS: Alert and Calm (0) ca1 13:48 Not Given (Physician Discretion; BGL at this time 312. VO changed to 5units): Insulin ca1 Regular Human 10 units IVP once 13:51 Drug: Insulin Regular Human 5 units {Co-Signature: em (Oz Rios RN).} Route: IVP; ca1 Site: right antecubital; 14:30 Follow up: Response: No adverse reaction; Blood sugar is lowered ca1 Intake: 13:03 IV: 1000ml; Total: 1000ml. ca1 Outcome: 13:32 Decision to Hospitalize by Provider. tw07/05 13:30 Patient left the ED. tw Signatures: Oz Rios RN RN em Sharmila Man RN RN tw2 Renee Small am2 Pietro Lewis MD MD tw4 Jennifer Kingston RN RN ca1 Oz Rios RN em Corrections: (The following items were deleted from the chart) 07/04 11:53 11:51 General: Appears in no apparent distress. uncomfortable, Behavior is anxious, ca1 restless, ca1 12:34 11:51 GI: Abdomen is flat, non-distended, Bowel sounds present X 4 quads. Abd is soft X ca1 4 quads Abdomen is tender to palpation in epigastric area, right upper quadrant and left upper quadrant Reports diarrhea, nausea, vomiting, ca1
--- NOTE | 2020-07-04 13:32 | EDPHYS ---
Physician Documentation [facility] Name: Javier Rutherford Age: 45 yrs Sex: Male : 1975 Arrival Date: 07/04/2020 Time: 10:45 Bed 16 Private MD: ED Physician Pietro Lewis HPI: 07/04 12:51 This 45 yrs old Male presents to ER via Ambulatory with complaints of tw4 Abdominal Pain, Epigastric Pain. 12:51 This 45 yrs old Male presents to ER via Ambulatory with complaints of tw4 Abdominal Pain, Epigastric Pain. 12:51 The patient presents with abdominal pain. Onset: The symptoms/episode began/occurred tw4 today. The symptoms. Historical: - Allergies: 11:41 No Known Allergies; em - PMHx: 11:41 Diabetes - NIDDM; fatty liver; Hyperlipidemia; Pancreatitis; em - PSHx: 11:41 Cholecystectomy; Hernia repair; Vasectomy; em - Immunization history:: Adult Immunizations up to date. - Social history:: Smoking status: Patient denies any tobacco usage or history of. ROS: 13:36 Abdomen/GI: Positive for tw4 16:30 Constitutional: Negative for fever, chills, and weight loss, Eyes: Negative for injury, tw4 pain, redness, and discharge, ENT: Negative for injury, pain, and discharge, Cardiovascular: Negative for chest pain, palpitations, and edema, Respiratory: Negative for shortness of breath, cough, wheezing, and pleuritic chest pain, Back: Negative for injury and pain, MS/Extremity: Negative for injury and deformity, Skin: Negative for injury, rash, and discoloration, Neuro: Negative for headache, weakness, numbness, tingling, and seizure. 16:30 Abdomen/GI: Positive for abdominal pain, nausea and vomiting, nausea, vomiting, and diarrhea, nausea, vomiting. Exam: 16:30 Constitutional: This is a well developed, well nourished patient who is awake, alert, tw4 and in no acute distress. Head/Face: Normocephalic, atraumatic. Chest/axilla: Normal chest wall appearance and motion. Nontender with no deformity. No lesions are appreciated. Cardiovascular: Regular rate and rhythm with a normal S1 and S2. No gallops, murmurs, or rubs. Normal PMI, no JVD. No pulse deficits. Respiratory: Lungs have equal breath sounds bilaterally, clear to auscultation and percussion. No rales, rhonchi or wheezes noted. No increased work of breathing, no retractions or nasal flaring. Back: No spinal tenderness. No costovertebral tenderness. Full range of motion. Skin: Warm, dry with normal turgor. Normal color with no rashes, no lesions, and no evidence of cellulitis. MS/ Extremity: Pulses equal, no cyanosis. Neurovascular intact. Full, normal range of motion. Neuro: Awake and alert, GCS 15, oriented to person, place, time, and situation. Cranial nerves II-XII grossly intact. Motor strength 5/5 in all extremities. Sensory grossly intact. Cerebellar exam normal. Normal gait. 16:30 Abdomen/GI: Inspection: abdomen appears normal, Bowel sounds: diminished, Palpation: moderate abdominal tenderness, in the epigastric area. Vital Signs: 11:39 BP 150 / 122; Pulse 84; Resp 18; Temp 98.3; Pulse Ox 99% on R/A; Weight 90.72 kg; em Height 5 ft. 8 in. (172.72 cm); Pain 10/10; 12:14 BP 142 / 70; Pulse 91; Resp 18 S; Pulse Ox 96% on R/A; ca1 13:00 BP 148 / 70; Pulse 91; Resp 18 S; Pulse Ox 95% on R/A; ca1 14:00 BP 130 / 74; Pulse 90; Resp 18 S; Pulse Ox 97% on R/A; ca1 15:00 BP 140 / 88; Pulse 89; Resp 18 S; Pulse Ox 95% on R/A; ca1 16:00 BP 135 / 89; Pulse 89; Resp 18 S; Pulse Ox 95% on R/A; ca1 17:00 BP 146 / 68; Pulse 94; Resp 18 S; Pulse Ox 98% on R/A; ca1 18:00 BP 153 / 91; Pulse 104; Resp 18 S; Pulse Ox 95% on R/A; ca1 11:39 Body Mass Index 30.41 (90.72 kg, 172.72 cm) em MDM: 11:58 Patient medically screened. tw4 16:30 Differential diagnosis: AAA, appendicitis. Data reviewed: vital signs, nurses notes. tw4 Data interpreted: Pulse oximetry: Interpretation: normal. Counseling: I had a detailed discussion with the patient and/or guardian regarding: the historical points, exam findings, and any diagnostic results supporting the discharge/admit diagnosis. Physician consultation: Adan Harrington MD regarding admission, to the medical/surgical unit. patient's condition, and will see patient. 07/04 11:15 Order name: Basic Metabolic Panel; Complete Time: 13:27 tw4 07/04 11:15 Order name: CBC with Diff; Complete Time: 15:22 [email or web address] 07/04 11:15 Order name: Hepatic Function; Complete Time: 13:27 tw4 07/04 11:15 Order name: Lipase; Complete Time: 13: [email or web address] 07/04 13:17 Order name: Ketone, Serum; Complete Time: 13:35 [facility] 07/04 13:58 Order name: Glucose, Ancillary Testing; Complete Time: 15:22 [facility] 07/04 14:45 Order name: Glucose, Ancillary Testing; Complete Time: 15:22 [facility] 07/04 14:56 Order name: Manual Differential; Complete Time: 15:22 [facility] 07/04 16:12 Order name: SARS-COV-2 RT PCR; Complete Time: 18:15 [facility] 07/04 17:24 Order name: Lipid Profile 07/04 18:56 Order name: Lipid Profile [facility] 07/04 19:11 Order name: LDL, Direct [facility] 07/04 19:33 Order name: Glucose, Ancillary Testing [facility] 07/04 21:14 Order name: Hemoglobin A1c [facility] 07/04 21:24 Order name: Glucose, Ancillary Testing [facility] 07/04 22:23 Order name: Glucose, Ancillary Testing [facility] 07/04 23:28 Order name: Glucose, Ancillary Testing [facility] 07/05 00:45 Order name: Glucose, Ancillary Testing [facility] 07/05 01:23 Order name: Glucose, Ancillary Testing [facility] 07/05 02:30 Order name: Glucose, Ancillary Testing [facility] 07/05 03:23 Order name: Glucose, Ancillary Testing [facility] 07/05 04:11 Order name: Glucose, Ancillary Testing [facility] 07/05 05:11 Order name: Glucose, Ancillary Testing [facility] 07/05 05:14 Order name: CBC with Manual Differential [facility] 07/05 05:21 Order name: Triglycerides Level [facility] 07/05 05:33 Order name: LDL, Direct [facility] 07/05 05:39 Order name: Basic Metabolic Panel [facility] 07/05 05:39 Order name: Lipase [facility] 07/05 06:28 Order name: Glucose, Ancillary Testing [facility] 07/04 11:15 Order name: IV Saline Lock; Complete Time: 11:51 tw4 07/04 11:15 Order name: Labs collected and sent; Complete Time: 11:51 tw4 07/05 07:37 Order name: Glucose, Ancillary Testing [facility] 07/05 07:53 Order name: CT [facility]ID 07/05 09:12 Order name: Glucose, Ancillary Testing EDMS 07/05 10:04 Order name: Glucose, Ancillary Testing [facility] 07/05 11:14 Order name: Glucose, Ancillary Testing [facility] 07/05 12:09 Order name: Glucose, Ancillary Testing [facility] 07/05 13:15 Order name: Glucose, Ancillary Testing EDMS Administered Medications: 12:07 Drug: NS 0.9% 1000 ml Route: IV; Rate: 1 bolus; Site: right antecubital; ca1 13:03 Follow up: Response: No adverse reaction; IV Status: Completed infusion; IV Intake: ca1 1000ml 12:09 Drug: Zofran (Ondansetron) 4 mg Route: IVP; Site: right antecubital; ca1 13:03 Follow up: Response: No adverse reaction; Nausea is decreased ca1 12:13 Drug: Dilaudid (HYDROmorphone) 1 mg {Note: rass 0.} Route: IVP; Site: right antecubital;ca1 13:03 Follow up: Response: No adverse reaction; Pain is decreased; RASS: Alert and Calm (0) ca1 13:48 Not Given (Physician Discretion; BGL at this time 312. VO changed to 5units): Insulin ca1 Regular Human 10 units IVP once 13:51 Drug: Insulin Regular Human 5 units {Co-Signature: em (Oz Rios RN).} Route: IVP; ca1 Site: right antecubital; 14:30 Follow up: Response: No adverse reaction; Blood sugar is lowered ca1 Disposition: 07/04/20 13:32 Hospitalization ordered by Adan Harrington for Inpatient Admission. Preliminary diagnosis are Acute pancreatitis, unspecified, Hyperglycemia, unspecified. - Bed requested for [facility] ER HOLD. - Status is Inpatient Admission. tw2 - Condition is Stable. - Problem is an ongoing problem. - Symptoms have improved. Signatures: Dispatcher [employer] [facility] Gisell Rodriguez, RN RN Oz Rios, RN ARACELI em pEi Castanon, LOLI-Caroline ENNIS-Romario1 Sharmila Man RN RN tw2 Pietro Lewis MD MD tw4 Jennifer Kingston RN RN [facility] Oz Rios RN em Corrections: (The following items were deleted from the chart) 15:17 14:39 CORONAVIRUS+MR.LAB.BRZ ordered. [facility] EDID 17:18 13:32 Hospitalization Ordered by Adan Harrington MD for Inpatient Admission. Preliminary diagnosis is Acute pancreatitis, unspecified; Hyperglycemia, unspecified. Bed requested for Telemetry/MedSurg (Inpatient). Status is Inpatient Admission. Condition is Stable. Problem is an ongoing problem. Symptoms have improved. tw4 19:18 17:18 07/04/2020 13:32 Hospitalization Ordered by Adan Harrington MD for Inpatient dw Admission. Preliminary diagnosis is Acute pancreatitis, unspecified; Hyperglycemia, unspecified. Bed requested for Telemetry/MedSurg (Inpatient). Status is Inpatient Admission. Condition is Stable. Problem is an ongoing problem. Symptoms have improved. 07/05 13:30 07/04 19:18 07/04/2020 13:32 Hospitalization Ordered by Adan Harrington MD for Inpatient tw2 Admission. Preliminary diagnosis is Acute pancreatitis, unspecified; Hyperglycemia, unspecified. Bed requested for [facility] ER HOLD. Status is Inpatient Admission. Condition is Stable. Problem is an ongoing problem. Symptoms have improved. dw
[2020-07-04 13:59] LABS: Absolute Lymphocytes (CBC) 1.2 K/uL (0.7-4.9); Basophils % 3.1 % (0-1.3); Hematocrit 36.8 % (39.6-49.0); MPV 11.3 fL (7.6-11.3); RBC Red Blood Cell Count 4.59 M/uL (4.33-5.43)
[2020-07-04] MEDS ORDERED: INSULIN -REGULAR HUMAN 50 UNIT/0.5 ML ML ONE ×2 (14:08→19:55)
[2020-07-04] MEDS: HYDROMORPHONE HCL 1 MG/ML INJ IV PRN ×2 (14:23→18:25)
[2020-07-04 14:56] LABS: Platelet Estimate ADEQ
[2020-07-04 14:57] LABS: Blood Morphology Comment NOTED (NOT SEEN)
--- NOTE | 2020-07-04 16:07 | P.HP ---
Certification for Inpatient Patient admitted to: Inpatient With expected LOS: >2 Midnights Patient will require the following post-hospital care: None Practitioner: I am a practitioner with admitting privileges, knowledge of patient current condition, hospital course, and medical plan of care. Services: Services provided to patient in accordance with Admission requirements found in Title 42 Section 412.3 of the Code of Federal Regulations Patient History Date of Service: 07/04/20 Reason for admission: Epigastric pain History of Present Illness: Patient is a 45 year old male with a PMHx significant for Diabetes, GERD, hypertriglyceridemia , pancreatitis who presents with c\o of epigastric pain onset today. Patient rated pain as 10\10 in severity and described pain as stabbing in quality. Patient reported associated s\s of nausea and vomiting. Patient denies any other s\s. Symptoms are aggravated or relieved by nothing. Patient decided to present to the hospital due to worsening symptoms. Allergies No Known Allergies Allergy (Verified 10/31/19 02:57) Home medications list reviewed: Yes Home Medications: Insulin Aspart [Novolog Flexpen] 20 units SQ DAILY 11/01/19 Insulin Degludec [Tresiba Flextouch U-200] 30 units SQ BID 11/01/19 Fenofibrate,Micronized [Fenofibrate] 200 mg PO DAILY 03/07/20 Metformin HCl 1,000 mg PO BID 03/07/20 Pantoprazole Sodium [Protonix] 40 mg PO DAILY 03/07/20 clonazePAM [Klonopin*] 0.5 mg PO TID PRN #30 tab 03/09/20 gemfibroziL [Lopid*] 600 mg PO BID #60 tab 03/09/20 Lipase/Protease/Amylase [Sneha Catherine 36,000 Units Capsule] 1 each PO ACHS #120 capsule. 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 - Family History Sister -: Diabetes, Cancer Mother -: Diabetes Brother -: GI disease, Diabetes Notes: Pancreatitis - Social History Smoking Status: Unknown if ever smoked Alcohol use: No CD- Drugs: No Caffeine use: No Place of Residence: Home Review of Systems General: Unremarkable Eyes: Unremarkable ENT: Unremarkable Respiratory: Unremarkable Cardiovascular: Unremarkable Gastrointestinal: Nausea, Vomiting, Abdominal Pain Genitourinary: Unremarkable Musculoskeletal: Unremarkable Integumentary: Unremarkable Neurological: Unremarkable Physical Examination - Physical Exam General: Alert, Acute distress HEENT: Atraumatic, PERRLA, Mucous membr. moist/pink, EOMI, Sclerae nonicteric Neck: Supple, 2+ carotid pulse no bruit, No LAD, Without JVD or thyroid abnormality Respiratory: Clear to auscultation bilaterally, Normal air movement Cardiovascular: No edema, Normal pulses, Regular rate/rhythm, Normal S1 S2 Capillary refill: <2 Seconds Gastrointestinal: Normal bowel sounds, Non-distended, Tenderness Musculoskeletal: No clubbing, No tenderness Integumentary: No rashes, No breakdown Neurological: Normal gait, Normal speech, Normal strength at 5/5 x4 extr, Normal tone, Normal affect Lymphatics: No axilla or inguinal lymphadenopathy External genitalia: Deferred Rectal: Deferred - Studies Laboratory Data (last 24 hrs) 07/04/20 11:56: WBC 12.30 H, Hgb 16.5, Hct 36.8 L, Plt Count 248 07/04/20 11:56: Sodium 138, Potassium 4.5, BUN 16, Creatinine 1.00, Glucose 420 H*, Total Bilirubin 1.3 H, AST 33, ALT 53, Alkaline Phosphatase 93, Lipase 2614 H Assessment and Plan - Plan --Acute on chronic pancreatitis exacerbation. Likely secondary to severely elevated Triglyceride levels. Patient admitted to ICU. Placed on insulin drip protocol until levels are stable. Continue fenofibrate when appropriate. --Nausea and vomiting. Antiemetics on board. --GERD . Continue protonix IV --DM 2. Patient placed on insulin drip protocol. Continue NPO and supportive care --Anxiety disorder. Stable. Continue Clonazepam when appropriate. --Leukocytosis. Likely reactive. Blood cultures pending to r\o other possible cuases --DVT prophylaxis with Lovenox subQ Discharge Plan: Home Plan to discharge in: Greater than 2 days - Advance Directives Does patient have a Living Will: No Does patient have a Durable POA for Healthcare: No - Code Status/Comfort Care Code Status Assessed: Yes Code Status: Full Code
[2020-07-04] MEDS ORDERED: ACETAMINOPHEN 650MG/RECT SUPP PR PRN (17:10)
[2020-07-04] MEDS ORDERED: NA CHLORIDE 0.9% 1,000 ML IV SCH (18:00)
[2020-07-04 18:55] LABS: HDL Cholesterol 34 mg/dL (40-60)
[2020-07-04] MEDS ORDERED: D50W 25 GM/50 ML SYRINGE IV PRN ×2 (18:55→18:57)
[2020-07-04] MEDS ORDERED: GLUCAGON 1 MG/VIAL IM PRN ×2 (18:55→18:57)
[2020-07-04] MEDS ORDERED: LABETALOL 20 MG/4ML SYRINGE IV PRN (18:58)
[2020-07-04 19:11] LABS: LDL, Direct 112 mg/dL (100-129)
[2020-07-04] MEDS ORDERED: INSULIN -REGULAR HUMAN 100 UNIT in NA CHLORIDE 0.9% 100 ML IV SCH (19:15)
[2020-07-04] MEDS: INSULIN -REGULAR HUMAN 100 UNIT in NA CHLORIDE 0.9% 100 ML IV SCH (19:44)
[2020-07-04] MEDS ORDERED: NA CHLORIDE 0.9% 100 ML ONE (19:55)
[2020-07-04] MEDS ORDERED: NACHLORIDE 0.45% 1,000 ML IV SCH (20:00)
[2020-07-04] MEDS ORDERED: D5 0.45 NS 1,000 ML IV SCH (20:00)
[2020-07-04] MEDS: KETOROLAC 30 MG/ML INJ IV PRN (20:21)
[2020-07-04] MEDS ORDERED: KETOROLAC 30 MG/ML INJ ONE (20:32)
[2020-07-04] MEDS ORDERED: INSULIN -REGULAR HUMAN 50 UNIT/0.5 ML ML SQ SCH (21:00)
[2020-07-04] MEDS ORDERED: INSULIN GLARGINE 100 UNITS/ML SQ SCH (21:00)
[2020-07-04] MEDS: D5 0.45 NS 1,000 ML IV SCH (21:00)
[2020-07-04] MEDS: HEPARIN 5000 UNIT/ML 1 ML VIAL SQ SCH (21:00)
[2020-07-04] MEDS ORDERED: SODIUM CHLORIDE 0.9% 10ML INJ IV PRN (21:55)
[2020-07-05] MEDS: D5 0.45 NS 1,000 ML IV SCH ×5 (00:30→21:26)
[2020-07-05] MEDS: HEPARIN 5000 UNIT/ML 1 ML VIAL SQ SCH ×3 (00:30→20:39)
[2020-07-05] MEDS: NACHLORIDE 0.45% 1,000 ML IV SCH ×6 (00:30→17:51)
[2020-07-05] MEDS ORDERED: HEPARIN 5000 UNIT/ML 1 ML VIAL ONE ×3 (00:40→20:39)
[2020-07-05] MEDS ORDERED: NACHLORIDE 0.45% 1,000 ML IV ONE ×3 (00:40→13:53)
[2020-07-05] MEDS: HYDROMORPHONE HCL 1 MG/ML INJ IV PRN ×4 (01:35→13:37)
[2020-07-05] MEDS ORDERED: HYDROMORPHONE HCL 1 MG/ML INJ ONE ×4 (01:49→13:50)
[2020-07-05] MEDS ORDERED: NA CHLORIDE 0.9% 1,000 ML IV ONE ×2 (03:08→06:52)
[2020-07-05] MEDS ORDERED: NA CHLORIDE 0.9% 1,000 ML ONE ×2 (03:30→06:54)
[2020-07-05 04:34] LABS: Absolute Lymphocytes (CBC) 1.2 K/uL (0.7-4.9); Basophils % 1.2 % (0-1.3); Hematocrit 42.3 % (39.6-49.0); Lymphocytes % 26.7 % (15.3-44.8); RBC Red Blood Cell Count 5.25 M/uL (4.33-5.43)
[2020-07-05] MEDS ORDERED: NA CHLORIDE 0.9% 500 ML IV ONE ×2 (04:46→06:17)
[2020-07-05] MEDS ORDERED: NA CHLORIDE 0.9% 500 ML ONE ×2 (04:58→06:26)
[2020-07-05 05:33] LABS: LDL, Direct 112 mg/dL (100-129)
[2020-07-05 05:36] LABS: Potassium 4.4 mmol/L (3.5-5.1)
[2020-07-05] MEDS ORDERED: INSULIN -REGULAR HUMAN 50 UNIT/0.5 ML ML ONE (06:15)
[2020-07-05] MEDS ORDERED: NA CHLORIDE 0.9% 100 ML ONE (06:15)
[2020-07-05 07:33] LABS: Blood Morphology Comment NOT SEEN (NOT SEEN); Platelet Estimate ADEQ; Platelets, Giant PRESENT
--- NOTE | 2020-07-05 07:52 | RAD REPORT ---
EXAM DESCRIPTION: CT - Abdomen Pelvis Wo Contrast - 07/05/2020 7:42 am CLINICAL HISTORY: Abdominal pain COMPARISON: April 2020 TECHNIQUE: Computed axial tomography of the abdomen and pelvis was obtained. IV and oral contrast we re not requested. All CT scans are performed using dose optimization technique as appropriate and may include automated exposure control or mA/KV adjustment according to patient size. FINDINGS: The evaluation of solid organs, vessels and bowel is limited secondary to the lack of con trast administration. Extensive inflammatory changes surround the pancreas. Ill-defined fluid is present within the lesser sac and anterior pararenal spaces. Pancreas is inhomogeneous. Punctate calcification within pancreati c head. 2.6 centimeter pseudocyst within the pancreatic tail region. Small amount of ascites. Cholecystectomy. Fatty liver. Spleen, adrenals and kidneys appear grossly normal. No evidence diverticulitis IMPRESSION: Marked pancreatitis
[2020-07-05] MEDS ORDERED: ENOXAPARIN 40 MG/0.4 ML SQ SCH (09:00)
[2020-07-05] MEDS: PANTOPRAZOLE 40 MG INJ IVP SCH (09:07)
[2020-07-05] MEDS ORDERED: PANTOPRAZOLE 40 MG INJ ONE (09:14)
[2020-07-05] MEDS: ONDANSETRON 4 MG/2 ML VIAL IV PRN ×2 (10:50→16:24)
[2020-07-05] MEDS ORDERED: ONDANSETRON 4 MG/2 ML VIAL ONE ×2 (10:53→16:39)
--- NOTE | 2020-07-05 13:58 | P.PN ---
Subjective Date of Service: 07/05/20 Chief Complaint: Epigastric pain Subjective: Other (Increasing pain noted. Increased tachycardia also.) Physical Examination - Vital Signs Temperature: 99.5 F Blood Pressure: 130/87 Pulse: 120 Respirations: 120 Pulse Ox (%): 94 - Studies Laboratory Data (last 24 hrs) 07/04/20 11:56: WBC 12.30 H, Hgb 16.5, Hct 36.8 L, Plt Count 248 Assessment & Plan Discharge Plan: Home Plan to discharge in: Greater than 2 days Physician Review Additional Text: CT scan: : The evaluation of solid organs, vessels and bowel is limited secondary to t he lack of contrast administration. Extensive inflammatory changes surround the pancreas. Ill-defined fluid is present within the lesser sac and anterior pararenal spaces. Pancreas is inhomogeneous. Punctate calcification within pancreatic head. 2.6 centimeter pseudocyst within the pancreatic tail region. Small amount of ascites. Cholecystectomy. Fatty liver. Spleen, adrenals and kidneys appear grossly normal. No evidence diverticulitis IMPRESSION: Marked pancreatitis Physical exam: Patient with sinus tachycardia. Pain still present. Mild nausea noted. Patient alert, cooperative. Heart: Sinus tachycardia Lungs: Clear to auscultation Abdomen: Mild distention. Still with pain to palpation. Extremities: Good range of motion. No focal deficits. No significant edema. Impression: Nausea, vomiting, abdominal pain secondary to acute on chronic severe, recurrent hypertriglyceridemia pancreatitis with noted 2.6 cm pseudocyst within the pancreatic tail region and small amount of ascites Acute renal failure with metabolic acidosis Fatty liver Diabetes mellitus type 2 Anxiety GERD Obesity, BMI 30.4 Plan: Nausea, vomiting, abdominal pain secondary to acute on chronic severe, recurrent hypertriglyceridemia pancreatitis with noted 2.6 cm pseudocyst within the pancreatic tail region and small amount of ascites: Continue aggressive IV fluid hydration. Patient received multiple boluses this morning. Patient remains on IV insulin drip to help with his hypertriglyceridemia. Maintain glucose around 150-200. Will adjust IV fluids accordingly. Monitor and trend triglycerides. Patient with acute renal failure and metabolic acidosis. Nephrology consulted to help address. Also consulted surgery for further evaluation. Hopefully no intervention is required. CT scan showed marked pancreatitis with noted 2.6 cm pseudocyst within the pancreatic tail region. Small amount of ascites noted. E xtensive inflammation around the pancreas noted. DVT prophylaxis in place. Patient remains n.p.o. We will continue to reassess and monitor closely. Acute renal failure with metabolic acidosis: Continue aggressive IV fluids. Patient on insulin drip. Nephrology to evaluate. Await recommendation. Fatty liver: Continue to address lifestyle modification education. Diabetes mellitus type 2: Patiently currently on insulin drip due to hypertriglyceridemia. Will adjust IV fluids accordingly to maintain blood sugar between 150 and 200. Accu-Cheks in place. We will monitor this closely. Anxiety: We will provide medication for anxiety GERD: Continue PPI. Obesity, BMI 30.4: We will address lifestyle modification education. Time Spent Managing Pts Care (In Minutes): 55
--- NOTE | 2020-07-05 14:41 | CON ---
Date of Consultation: 07/05/2020 Brief History Of Present Illness: The patient is a 45-year-old male with past medical history signif icant for diabetes, GERD, cholecystectomy, hypertriglyceridemia, and multiple episodes of pancreatiti s, who presents to the hospital with approximately 1-day history of acute onset epigastric abdominal pain radiating to his back. It was rated as 10/10 in severity and was stabbing in quality. He had s ome associated nausea, vomiting. Denied any other signs or symptoms or complaints at this point. No fever, chills. He had no new sick contacts. No recent travel. No new food exposures. He has had multiple episodes before similar to the past. Past Medical History: Significant for pancreatitis episodes, multiple. He states he really cannot r ecall how many episodes, but multiple. Hyperlipidemia, diabetes, fatty steatotic liver, hypertriglyc eridemia. Past Surgical History: Includes vasectomy, cholecystectomy, hernia surgery. Home Medications: Include insulin, Tresiba, fenofibrate, metformin, pantoprazole, clonazepam, Lopid, Creon, tramadol. Allergies: NO KNOWN DRUG ALLERGIES. Family History: His mother had diabetes. His sister had diabetes as well. His brother had diabetes . 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 He denies smoking, alcohol, or re creational drug use. Review of Systems: Ten-point review of systems other than HPI, denies. Physical Examination: Vital Signs: At the time of my examination; his BMI was 30.4. His blood pressure is 122/82, heart r ate was 119, temperature 98.9, SpO2 95% on room air. General: He is awake, alert, oriented. Psychiatric: He is appropriate, conversive. HEENT: Normocephalic. His sclerae are slightly injected and appeared jaundiced slightly with conjun ctival injection. His oropharynx is somewhat is clear, but somewhat dry. His mucous membranes are a little dry as described. Neck: Supple without JVD. Chest: Normal expansion and excursion. Cardiovascular: Tachycardic, otherwise regular rhythm. Pulmonary: Decreased breath sounds bilaterally. No wheezes, rales, or rhonchi appreciated. Abdomen: Soft with global tenderness to palpation, worse in the epigastric area. There is positive rebound. Extremities: No clubbing, cyanosis, edema. Skin: Warm and dry. Laboratory Data: Reveals a white blood cell count of 4.5, hemoglobin is 14.5, hematocrit of 42.3, hi s platelet count is 277. He has 5 neutrophil bands noted. His sodium is 140, potassium 4.4, chlorid e 112, carbon dioxide 12, BUN 19, creatinine 1.4, glucose was 249. His hemoglobin A1c is 11.3. His lactic acid is 6.7. His total bilirubin was 1.3 on admission. Direct component 0.2, AST is 33, ALT 53, alkaline phosphatase is 93. His lipase is 2614. His triglycerides were greater than 4000 on adm ission and currently 8210, cholesterol was 576. He had imaging performed which included an abdomen a nd pelvis CT, officially read as marked pancreatitis, specifically extensive inflammatory change arou nd the pancreas, ill-defined fluid is present within the lesser sac and anterior pararenal spaces. T he pancreas is homogeneous, punctate calcification in the pancreatic head, 2.6 cm pseudocyst within t he pancreatic tail region, small amount of ascites, and cholecystectomy are noted. Assessment And Plan: This is a 45-year-old male, who comes in with pancreatitis likely due to hypert riglyceridemia; however, I recommend treatment for his hypertriglyceridemia. 1.IV fluid hydration. 2.Serial abdominal exams. 3.We would recommend reimaging his abdomen with MRCP to rule out other contributing etiologies such as a pancreas divisum which may be contributing to this patient's multiple episodes of pancreatitis. He states he has had episodes of pancreatitis when his triglycerides were not as profound. Addition ally, we will review his medications to ensure there is no contributing factor from one of his medica tions that might be contributing to his overall pancreatitis. 4.Medical management. 5.His hemoglobin A1c is very abnormal and we will discuss this with medical team for ongoing managem ent of his diabetes management and to help hopefully prevent future episodes of pancreatitis. I have explained the risks, benefits, and alternatives of the above stated plan. The patient agrees to pro ceed as indicated. TK/MODL Voice ID: [id number] Report ID: [id number]
[2020-07-05 15:42] LABS: Potassium 5.1 mmol/L (3.5-5.1)
[2020-07-05] MEDS ORDERED: HYDROMORPHONE HCL 1 MG/ML INJ IV PRN ×2 (16:08)
[2020-07-05] MEDS ORDERED: CALCIUM GLUCONATE 1 GM IVPB 1 GM/50 ML BAG IV ONE (16:25)
[2020-07-05] MEDS: HYDROMORPHONE HCL 2 MG/ML inj IV PRN ×3 (16:28→23:34)
[2020-07-05] MEDS ORDERED: HYDROMORPHONE HCL 2 MG/ML inj ONE ×3 (16:39→23:39)
[2020-07-05] MEDS ORDERED: CALCIUM GLUC 10% INJ 4.65 MEQ in NA CHLORIDE 0.9% 100 ML IV ONE (17:00)
[2020-07-05] MEDS ORDERED: D5 0.45 NS 1,000 ML IV ONE (21:44)
--- NOTE | 2020-07-05 22:02 | P.CNS ---
Date of Consult: 07/05/20 Reason for Consult: HILDA Requesting Physician: Marco A Gaspar Chief Complaint: Epigastric pain History of Present Illness: Patient is a 45 year old male with a PMHx significant for Diabetes, GERD, hypertriglyceridemia , pancreatitis who presents with c\o of epigastric pain onset today. Patient rated pain as 10\10 in severity and described pain as stabbing in quality. Patient reported associated s\s of nausea and vomiting. Patient denies any other s\s. Symptoms are aggravated or relieved by nothing. Patient decided to present to the hospital due to worsening symptoms. 12:51 This 45 yrs old Male presents to ER via Ambulatory with complaints of tw4 Abdominal Pain, Epigastric Pain. 12:51 This 45 yrs old Male presents to ER via Ambulatory with complaints of tw4 Abdominal Pain, Epigastric Pain. 12:51 The patient presents with abdominal pain. Onset: The symptoms/episode began/occurred tw4 today. The symptoms. Allergies No Known Allergies Allergy (Verified 10/31/19 02:57) Home medications list reviewed: Yes Home Medications: Insulin Aspart [Novolog Flexpen] 20 units SQ DAILY 11/01/19 Insulin Degludec [Tresiba Flextouch U-200] 30 units SQ BID 11/01/19 Fenofibrate,Micronized [Fenofibrate] 200 mg PO DAILY 03/07/20 Metformin HCl 1,000 mg PO BID 03/07/20 Pantoprazole Sodium [Protonix] 40 mg PO DAILY 03/07/20 clonazePAM [Klonopin*] 0.5 mg PO TID PRN #30 tab 03/09/20 gemfibroziL [Lopid*] 600 mg PO BID #60 tab 03/09/20 Lipase/Protease/Amylase [Sneha Catherine 36,000 Units Capsule] 1 each PO ACHS #120 capsule. 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 lives with his - Family History Sister Medical History: Diabetes, Cancer Mother Medical History: Diabetes Brother Medical History: GI disease, Diabetes Notes: Pancreatitis - Social History Smoking Status: Unknown if ever smoked Alcohol use: No CD- Drugs: No Caffeine use: No Place of Residence: Home Review of Systems 10-point ROS is otherwise unremarkable General: Weakness, Malaise Gastrointestinal: Abdominal Pain Physical Examination Temp Pulse Resp BP Pulse Ox 99.5 F 122 H 16 107/86 96 07/05/20 14:09 07/05/20 18:00 07/05/20 20:41 07/05/20 18:00 07/05/20 20:41 General: Alert, Oriented x3, Cooperative HEENT: Atraumatic Neck: Supple Respiratory: Clear to auscultation bilaterally Cardiovascular: No edema, Regular rate/rhythm Gastrointestinal: Non-distended, Tenderness, Guarding Musculoskeletal: No clubbing, No contractures Integumentary: No rashes, No cyanosis Neurological: Normal speech Blood work reviewed in the chart. Imagings Data: EXAM DESCRIPTION: CT - Abdomen Pelvis Wo Contrast - 07/05/2020 7:42 am CLINICAL HISTORY: Abdominal pain COMPARISON: April 2020 TECHNIQUE: Computed axial tomography of the abdomen and pelvis was obtained. IV and oral contrast were not requested. All CT scans are performed using dose optimization technique as appropriate and may include automated exposure control or mA/KV adjustment according to patient size. FINDINGS: The evaluation of solid organs, vessels and bowel is limited secondary to the lack of contrast administration. Extensive inflammatory changes surround the pancreas. Ill-defined fluid is present within the lesser sac and anterior pararenal spaces. Pancreas is inhomogeneous. Punctate calcification within pancreatic head. 2.6 centimeter pseudocyst within the pancreatic tail region. Small amount of ascites. Cholecystectomy. Fatty liver. Spleen, adrenals and kidneys appear grossly normal. No evidence diverticulitis IMPRESSION: Marked pancreatitis Conclusions/Impression: A/P: Continue the current POC and Medications other than the changes listed. AM Labs PRN. Recommend daily weight. Please see the orders for complete details. Hyperkalemia -Continue IVF Acidosis -Start oral bicarb Hypocalcemia -Replete IV calcium -Start Vitamin D DM II with hyperglycemia -RISS Microcytosis -Check iron levels Acute pancreatitis -Aggressive IVF with 1/2NS -NPO Thank you kindly for the consultation.
[2020-07-05 22:59] LABS: LDL, Direct 118 mg/dL (100-129)
[2020-07-05 23:55] LABS: Albumin 2.5 g/dL (3.4-5.0); Protein, Total 6.8 g/dL (6.4-8.2)
[2020-07-05 23:58] LABS: Potassium 4.9 mmol/L (3.5-5.1)
[2020-07-05 23:59] LABS: Bilirubin Total 5.2 mg/dL (0.2-1.0)
[2020-07-06] MEDS: NACHLORIDE 0.45% 1,000 ML IV SCH ×5 (00:31→20:31)
[2020-07-06] MEDS: HYDROMORPHONE HCL 2 MG/ML inj IV PRN ×7 (02:40→21:12)
[2020-07-06] MEDS: D5 0.45 NS 1,000 ML IV SCH ×3 (02:42→17:45)
[2020-07-06] MEDS ORDERED: HYDROMORPHONE HCL 2 MG/ML inj ONE ×7 (02:55→21:05)
[2020-07-06] MEDS ORDERED: D5 0.45 NS 1,000 ML IV ONE ×3 (02:56→18:02)
[2020-07-06] MEDS: INSULIN -REGULAR HUMAN 100 UNIT in NA CHLORIDE 0.9% 100 ML IV SCH (04:37)
[2020-07-06 05:44] LABS: Absolute Lymphocytes (CBC) 0.5 K/uL (0.7-4.9); Basophils % 1.5 % (0-1.3); Lymphocytes % 9.8 % (15.3-44.8); MPV 12.5 fL (7.6-11.3); RBC Red Blood Cell Count 4.35 M/uL (4.33-5.43)
[2020-07-06 06:05] LABS: LDL, Direct 121 mg/dL (100-129)
[2020-07-06 06:10] LABS: Albumin 2.3 g/dL (3.4-5.0); Bilirubin Total 3.9 mg/dL (0.2-1.0); Phosphorus 2.3 mg/dL (2.5-4.9); Protein, Total 6.3 g/dL (6.4-8.2); Uric Acid 6.4 mg/dL (3.5-7.2)
[2020-07-06 06:42] LABS: Hematocrit 32.6 % (39.6-49.0)
[2020-07-06] MEDS: SODIUM BICARB 325 MG TAB PO SCH ×4 (08:00→17:00)
[2020-07-06] MEDS: CALCITROL 0.25 MCG CAP PO SCH (08:06)
[2020-07-06] MEDS: VITAMIN D 5,000 UNIT CAP PO SCH (08:06)
[2020-07-06] MEDS: PANTOPRAZOLE 40 MG INJ IVP SCH (08:59)
[2020-07-06] MEDS: HEPARIN 5000 UNIT/ML 1 ML VIAL SQ SCH ×2 (08:59→21:12)
[2020-07-06] MEDS: THIAMINE 200 MG/2 ML INJ IVP SCH (08:59)
[2020-07-06] MEDS: FOLIC ACID 1 MG in NA CHLORIDE 0.9% 50 ML IV SCH (08:59)
[2020-07-06] MEDS ORDERED: FOLIC ACID 5 MG/ML VIAL IVP SCH (09:00)
[2020-07-06] MEDS ORDERED: PANTOPRAZOLE 40 MG INJ ONE (09:15)
[2020-07-06] MEDS ORDERED: THIAMINE 200 MG/2 ML INJ ONE (09:15)
[2020-07-06] MEDS ORDERED: HEPARIN 5000 UNIT/ML 1 ML VIAL ONE ×2 (09:15→21:29)
--- NOTE | 2020-07-06 09:35 | RAD REPORT ---
EXAM DESCRIPTION: MRI - Cholangiogram - 07/06/2020 8:04 am CLINICAL HISTORY: severe pancreatitis, elev bili Abdominal pain COMPARISON: Cholangiogram dated 08/02/2019; MRI-ABDOMEN W/WO CONTRAST dated 09/02/2014; Abdomen Pelv is Wo Contrast dated 07/05/2020 FINDINGS: Three-dimensional MRCP was performed using maximum intensity projection reconstruction on the same work station. The intrahepatic tree is mildly prominent. Common bile duct is prominent without evidence stone. The pancreatic duct is not pathologically dilated. Cholecystectomy. There is quite a bit edema and inflammation surrounding the pancreas. Mild free fluid is seen in the abdomen. IMPRESSION: Negative MR cholangiogram status post cholecystectomy. Significant pancreatitis.
[2020-07-06] MEDS ORDERED: NACHLORIDE 0.45% 1,000 ML IV ONE (11:04)
--- NOTE | 2020-07-06 14:40 | P.PN ---
Subjective Date of Service: 07/06/20 Chief Complaint: Epigastric pain Subjective: Improving (Patient remains ill, but improving) Physical Examination - Vital Signs Temperature: 99.2 F Blood Pressure: 109/70 Pulse: 95 Respirations: 14 Pulse Ox (%): 95 - Physical Exam General: Alert, In no apparent distress, Cooperative HEENT: Mucous membr. moist/pink, Scleral icterus Gastrointestinal: Other (soft, moderate improved TTP, mild distention) Integumentary: Other (jaundice) Assessment And Plan - Current Problems (Diagnosis) (1) Acute pancreatitis Onset Date: 03/21/14 Current Visit: No Status: Acute Plan: - continue IV hydration - serial exams - continue medical management - NPO Qualifiers: Pancreatitis type: other Acute pancreatitis complication: no infection or necrosis Qualified Code(s): K85.80 - Other acute pancreatitis without necrosis or infection Physician Review Additional Text: CT scan: : The evaluation of solid organs, vessels and bowel is limited secondary to the lack of contrast administration. Extensive inflammatory changes surround the pancreas. Ill-defined fluid is present within the lesser sac and anterior pararenal spaces. Pancreas is inhomogeneous. Punctate calcification within pancreatic head. 2.6 centimeter pseudocyst within the pancreatic tail region. Small amount of ascites. Cholecystectomy. Fatty liver. Spleen, adrenals and kidneys appear grossly normal. No evidence diverticulitis IMPRESSION: Marked pancreatitis Physical exam: Patient with sinus tachycardia. Pain still present. Mild nausea noted. Patient alert, cooperative. Heart: Sinus tachycardia Lungs: Clear to auscultation Abdomen: Mild distention. Still with pain to palpation. Extremities: Good range of motion. No focal deficits. No significant edema. Impression: Nausea, vomiting, abdominal pain secondary to acute on chronic severe, recurrent hypertriglyceridemia pancreatitis with noted 2.6 cm pseudocyst within the pancreatic tail region and small amount of ascites Acute renal failure with metabolic acidosis Fatty liver Diabetes mellitus type 2 Anxiety GERD Obesity, BMI 30.4 Plan: Nausea, vomiting, abdominal pain secondary to acute on chronic severe, recurrent hypertriglyceridemia pancreatitis with noted 2.6 cm pseudocyst within the pancreatic tail region and small amount of ascites: Continue aggressive IV fluid hydration. Patient received multiple boluses this morning. Patient remains on IV insulin drip to help with his hypertriglyceridemia. Maintain glucose around 150-200. Will adjust IV fluids accordingly. Monitor and trend triglycerides. Patient with acute renal failure and metabolic acidosis. Nephrology consulted to help address. Also consulted surgery for further evaluation. Hopefully no intervention is required. CT scan showed marked pancreatitis with noted 2.6 cm pseudocyst within the pancreatic tail region. Small amount of ascites noted. Extensive inflammation around the pancreas noted. DVT prophylaxis in place. Patient remains n.p.o. We will continue to reassess and monitor closely. Acute renal failure with metabolic acidosis: Continue aggressive IV fluids. Patient on insulin drip. Nephrology to evaluate. Await recommendation. Fatty liver: Continue to address lifestyle modification education. Diabetes mellitus type 2: Patiently currently on insulin drip due to hypertriglyceridemia. Will adjust IV fluids accordingly to maintain blood sugar between 150 and 200. Accu-Cheks in place. We will monitor this closely. Anxiety: We will provide medication for anxiety GERD: Continue PPI. Obesity, BMI 30.4: We will address lifestyle modification education.
--- NOTE | 2020-07-06 16:05 | P.PN ---
Subjective Date of Service: 07/06/20 Chief Complaint: Epigastric pain Subjective: No new changes Physical Examination - Vital Signs Temperature: 99.2 F Blood Pressure: 109/70 Pulse: 95 Respirations: 14 Pulse Ox (%): 95 Assessment & Plan Discharge Plan: Home Plan to discharge in: Greater than 2 days Physician Review Additional Text: CT scan: : The evaluation of solid organs, vessels and bowel is limited secondary to the lack of contrast administration. Extensive inflammatory changes surround the pancreas. Ill-defined fluid is present within the lesser sac and anterior pararenal spaces. Pancreas is inhomogeneous. Punctate calcification within pancreatic head. 2.6 centimeter pseudocyst within the pancreatic tail region. Small amount of ascites. Cholecystectomy. Fatty liver. Spleen, adrenals and kidneys appear grossly normal. No evidence diverticulitis IMPRESSION: Marked pancreatitis Physical exam: Patient with sinus tachycardia. Pain improved overall. Heart: Sinus tachycardia Lungs: Clear to auscultation Abdomen: Mild distention. Still with pain to palpation. But improved pain Extremities: Good range of motion. No focal deficits. No significant edema. Impression: Nausea, vomiting, abdominal pain secondary to acute on chronic severe, recurrent hypertriglyceridemia pancreatitis with noted 2.6 cm pseudocyst within the pancreatic tail region and small amount of ascites Acute renal failure with metabolic acidosis Fatty liver Diabetes mellitus type 2 Anxiety GERD Obesity, BMI 30.4 Plan: Nausea, vomiting, abdominal pain secondary to acute on chronic severe, recurrent hypertriglyceridemia pancreatitis with noted 2.6 cm pseudocyst within the pancreatic tail region and small amount of ascites: Patient remains n.p.o. Pain overall improved. Continue aggressive IV fluid hydration. Continue insulin drip for hypertriglyceridemia. Continue with surgery and nephrology recommendation. We will continue monitor closely. MRCP shows acute pancreatitis. Will order PICC line as the patient may require TPN. Will discuss further with nephrology and surgery. No surgical intervention required at this time. Continue DVT prophylaxis. Will monitor closely. Acute renal failure with metabolic acidosis: Continue aggressive IV fluids. Patient on insulin drip. Nephrology to evaluate. Await recommendation. Fatty liver: Continue to address lifestyle modification education. Diabetes mellitus type 2: Patiently currently on insulin drip due to hypertriglyceridemia. Will adjust IV fluids accordingly to maintain blood sugar between 150 and 200. Accu-Cheks in place. We will monitor this closely. Anxiety: We will provide medication for anxiety GERD: Continue PPI. Obesity, BMI 30.4: We will address lifestyle modification education. Time Spent Managing Pts Care (In Minutes): 55
--- NOTE | 2020-07-06 20:31 | P.PN ---
Date of Service: 07/06/20 Vital Signs Temp Pulse Resp BP Pulse Ox 99.2 F 93 H 23 H 132/79 95 07/06/20 16:05 07/06/20 19:00 07/06/20 19:00 07/06/20 19:00 07/06/20 19:00 Medications Acetaminophen (Acetaminophen 650mg/Rect Supp) 650 mg MI Q6H PRN PRN Reason: TEMP > 100' F Calcitriol (Calcitrol 0.25 Mcg Cap) 0.5 mcg PO DAILY COUNT INCLUDES THE [facility] Last Admin: 07/06/20 08:06 Dose: Not Given Documented by: Cholecalciferol (Vitamin D 5,000 Unit Cap) 5,000 unit PO DAILY COUNT INCLUDES THE [facility] Last Admin: 07/06/20 08:06 Dose: Not Given Documented by: Heparin Sodium (Porcine) (Heparin 5000 Unit/Ml 1 Ml Vial) 5,000 unit SQ Q12HR COUNT INCLUDES THE [facility] Last Admin: 07/06/20 08:59 Dose: 5,000 unit Documented by: Hydromorphone HCl (Hydromorphone Hcl 1 Mg/Ml Inj) 1 mg IV Q4H PRN PRN Reason: Pain scale 5-7 (Moderate) Hydromorphone HCl (Hydromorphone Hcl 2 Mg/Ml Inj) 2 mg IV Q3H PRN PRN Reason: Pain scale 8-10 (Severe) Last Admin: 07/06/20 18:41 Dose: 2 mg Documented by: Dextrose/Sodium Chloride (Dextrose 5% O.45% Saline) 1,000 mls @ 150 mls/hr IV .Q6H40M COUNT INCLUDES THE [facility] Last Admin: 07/06/20 17:45 Dose: 1,000 mls Documented by: Insulin Human Regular 100 unit (/ Sodium Chloride) 101 mls @ 0 mls/hr IV CONT COUNT INCLUDES THE [facility]; Protocol Last Admin: 07/06/20 04:37 Dose: 101 mls Documented by: Sodium Chloride (Sodium Chloride 0.45%) 1,000 mls @ 150 mls/hr IV .Q6H40M COUNT INCLUDES THE [facility] Last Admin: 07/06/20 13:51 Dose: Not Given Documented by: Folic Acid 1 mg/ Sodium (Chloride) 50.2 mls @ 100.4 mls/hr IV DAILY COUNT INCLUDES THE [facility] Last Admin: 07/06/20 08:59 Dose: 50.2 mls Documented by: Ketorolac Tromethamine (Ketorolac 30 Mg/Ml Inj) 30 mg IV Q6H PRN PRN Reason: Pain scale 5-7 (Moderate) Last Admin: 07/04/20 20:21 Dose: 30 mg Documented by: Ondansetron HCl (Ondansetron 4 Mg/2 Ml Vial) 4 mg IV Q6H PRN PRN Reason: NAUSEA / VOMITING Last Admin: 07/05/20 16:24 Dose: 4 mg Documented by: Pantoprazole Sodium (Pantoprazole 40 Mg Inj) 40 mg IVP DAILY COUNT INCLUDES THE [facility]; Protocol Last Admin: 07/06/20 08:59 Dose: 40 mg Documented by: Sodium Bicarbonate (Sodium Bicarb 325 Mg Tab) 650 mg PO TIDWM COUNT INCLUDES THE [facility] Last Admin: 07/06/20 17:00 Dose: Not Given Documented by: Sodium Chloride (Sodium Chloride 0.9% 10ml Inj) 10 ml IV UD PRN PRN Reason: Diluant Thiamine HCl (Thiamine 200 Mg/2 Ml Inj) 100 mg IVP DAILY COUNT INCLUDES THE [facility] Last Admin: 07/06/20 08:59 Dose: 100 mg Documented by: Assessment/ Plan: Nephrology No acute cardiac or pulmonary complaints. No CP or SOB. Persistent abdominal pain. No acute events overnight. Vitals, medications, blood work and imaging reviewed in the chart. General: Alert, Oriented x3, Cooperative HEENT: Atraumatic Neck: Supple Respiratory: Clear to auscultation bilaterally Cardiovascular: No edema, Regular rate/rhythm Gastrointestinal: Non-distended, Tenderness, Guarding Musculoskeletal: No clubbing, No contractures Integumentary: No rashes, No cyanosis Neurological: Normal speech Blood work reviewed in the chart. Imagings Data: EXAM DESCRIPTION: CT - Abdomen Pelvis Wo Contrast - 07/05/2020 7:42 am CLINICAL HISTORY: Abdominal pain COMPARISON: April 2020 TECHNIQUE: Computed axial tomography of the abdomen and pelvis was obtained. IV and oral contrast were not requested. All CT scans are performed using dose optimization technique as appropriate and may include automated exposure control or mA/KV adjustment according to patient size. FINDINGS: The evaluation of solid organs, vessels and bowel is limited se condary to the lack of contrast administration. Extensive inflammatory changes surround the pancreas. Ill-defined fluid is present within the lesser sac and anterior pararenal spaces. Pancreas is inho mogeneous. Punctate calcification within pancreatic head. 2.6 centimeter pseudocyst within the pancreatic tail region. Small amount of ascites. Cholecystectomy. Fatty liver. Spleen, adrenals and kidneys appear grossly normal. No evidence diverticulitis IMPRESSION: Marked pancreatitis Conclusions/Impression: A/P: Continue the current POC and Medications other than the changes listed. AM Labs PRN. Recommend daily weight. Please see the orders for complete details. Hyperkalemia -Continue IVF Acidosis -Continue oral bicarb Hypocalcemia -Replete IV calcium -Continue Vitamin D HypoPO4 DM II with hyperglycemia -RISS Anemia in chronic illness Iron deficiency -Check iron levels Acute pancreatitis -Aggressive IVF with 1/2NS -NPO Case reviewed with Dr. Gaspar
[2020-07-07] MEDS: HYDROMORPHONE HCL 2 MG/ML inj IV PRN ×5 (00:05→22:51)
[2020-07-07] MEDS ORDERED: HYDROMORPHONE HCL 2 MG/ML inj ONE ×4 (00:23→16:49)
[2020-07-07] MEDS: D5 0.45 NS 1,000 ML IV SCH ×4 (00:36→22:20)
[2020-07-07] MEDS ORDERED: D5 0.45 NS 1,000 ML IV ONE ×4 (00:54→20:02)
[2020-07-07] MEDS: INSULIN -REGULAR HUMAN 100 UNIT in NA CHLORIDE 0.9% 100 ML IV SCH (01:03)
[2020-07-07] MEDS: NACHLORIDE 0.45% 1,000 ML IV SCH ×4 (03:11→23:11)
[2020-07-07 05:42] LABS: Absolute Lymphocytes (CBC) 0.6 K/uL (0.7-4.9); Basophils % 1.2 % (0-1.3); Hematocrit 29.6 % (39.6-49.0); Lymphocytes % 12.8 % (15.3-44.8); MPV 11.2 fL (7.6-11.3); RBC Red Blood Cell Count 3.62 M/uL (4.33-5.43)
[2020-07-07 06:34] LABS: ALT/SGPT 74 U/L (12-78); AST/SGOT 41 U/L (15-37); Albumin 2.3 g/dL (3.4-5.0); Alkaline Phosphatase 121 U/L (45-117); BUN Blood Urea Nitrogen 17 mg/dL (7-18); Bicarbonate 24 mmol/L (21-32); Bilirubin Total 1.2 mg/dL (0.2-1.0); Glucose Level 229 mg/dL (74-106); Lipase 620 U/L (73-393); Magnesium 2.2 mg/dL (1.8-2.4); Potassium 3.4 mmol/L (3.5-5.1); Protein, Total 6.5 g/dL (6.4-8.2); Sodium Level 136 mmol/L (136-145)
[2020-07-07 06:49] LABS: LDL, Direct 81 mg/dL (100-129)
[2020-07-07] MEDS: SODIUM BICARB 325 MG TAB PO SCH ×2 (08:00→12:00)
[2020-07-07] MEDS: KCL 20 MEQ/100 mL IVPB 20 MEQ/100 ML BAG IV SCH ×2 (08:00→12:00)
[2020-07-07] MEDS: VITAMIN D 5,000 UNIT CAP PO SCH (08:17)
[2020-07-07] MEDS: HEPARIN 5000 UNIT/ML 1 ML VIAL SQ SCH ×2 (08:30→20:18)
[2020-07-07] MEDS: PANTOPRAZOLE 40 MG INJ IVP SCH (08:31)
[2020-07-07] MEDS: THIAMINE 200 MG/2 ML INJ IVP SCH (08:31)
[2020-07-07] MEDS: FOLIC ACID 1 MG in NA CHLORIDE 0.9% 50 ML IV SCH (08:32)
[2020-07-07] MEDS ORDERED: HEPARIN 5000 UNIT/ML 1 ML VIAL ONE ×2 (08:37→20:02)
[2020-07-07] MEDS ORDERED: THIAMINE 200 MG/2 ML INJ ONE (08:37)
[2020-07-07] MEDS ORDERED: PANTOPRAZOLE 40 MG INJ ONE (08:38)
[2020-07-07] MEDS ORDERED: KCL 20 MEQ/100 mL IVPB 40 MEQ/200 ML BAG IV ONE (08:39)
[2020-07-07] MEDS: CALCITROL 0.25 MCG CAP PO SCH (09:00)
[2020-07-07] MEDS: ONDANSETRON 4 MG/2 ML VIAL IV PRN ×2 (09:37→16:39)
[2020-07-07] MEDS ORDERED: ONDANSETRON 4 MG/2 ML VIAL ONE ×2 (09:45→16:50)
--- NOTE | 2020-07-07 10:19 | P.PN ---
Subjective Date of Service: 07/07/20 Chief Complaint: Epigastric pain Subjective: Improving (patient feels much better, less pain, less tender) Physical Examination - Vital Signs Temperature: 99 F Blood Pressure: 128/62 Pulse: 82 Respirations: 16 Pulse Ox (%): 95 - Physical Exam General: Alert, In no apparent distress, Cooperative Respiratory: Clear to auscultation bilaterally, Normal air movement Cardiovascular: Regular rate/rhythm Gastrointestinal: Other (soft, improved TTP, ND) Neurological: Normal speech Assessment And Plan - Current Problems (Diagnosis) (1) Acute pancreatitis Onset Date: 03/21/14 Current Visit: No Status: Acute Plan: - continue IV hydration - serial exams - continue medical management - start fat free clear liquid diet Qualifiers: Pancreatitis type: other Acute pancreatitis complication: no infection or necrosis Qualified Code(s): K85.80 - Other acute pancreatitis without necrosis or infection Physician Review Additional Text: CT scan: : The evaluation of solid organs, vessels and bowel is limited secondary to the lack of contrast administration. Extensive inflammatory changes surround the pancreas. Ill-defined fluid is present within the lesser sac and anterior pararenal spaces. Pancreas is inhomogeneous. Punctate calcification within pancreatic head. 2.6 centimeter pseudocyst within the pancreatic tail region. Small amount of ascites. Cholecystectomy. Fatty liver. Spleen, adrenals and kidneys appear grossly normal. No evidence diverticulitis IMPRESSION: Marked pancreatitis Physical exam: Patient with sinus tachycardia. Pain improved overall. Heart: Sinus tachycardia Lungs: Clear to auscultation Abdomen: Mild distention. Still with pain to palpation. But improved pain Extremities: Good range of motion. No focal deficits. No significant edema. Impression: Nausea, vomiting, abdominal pain secondary to acute on chronic severe, recurrent hypertriglyceridemia pancreatitis with noted 2.6 cm pseudocyst within the pancreatic tail region and small amount of ascites Acute renal failure with metabolic acidosis Fatty liver Diabetes mellitus type 2 Anxiety GERD Obesity, BMI 30.4 Plan: Nausea, vomiting, abdominal pain secondary to acute on chronic severe, recurrent hypertriglyceridemia pancreatitis with noted 2.6 cm pseudocyst within the pancreatic tail region and small amount of ascites: Patient remains n.p.o. Pain overall improved. Continue aggressive IV fluid hydration. Continue insulin drip for hypertriglyceridemia. Continue with surgery and nephrology recommendation. We will continue monitor closely. MRCP shows acute pancreatit is. Will order PICC line as the patient may require TPN. Will discuss further with nephrology and surgery. No surgical intervention required at this time. Continue DVT prophylaxis. Will monitor closely. Acute renal failure with metabolic acidosis: Continue aggressive IV fluids. Patient on insulin drip. Nephrology to evaluate. Await recommendation. Fatty liver: Continue to address lifestyle modification education. Diabetes mellitus type 2: Patiently currently on insulin drip due to hypertriglyceridemia. Will adjust IV fluids accordingly to maintain blood sugar between 150 and 200. Accu-Cheks in place. We will monitor this closely. Anxiety: We will provide medication for anxiety GERD: Continue PPI. Obesity, BMI 30.4: We will address lifestyle modification education.
--- NOTE | 2020-07-07 12:05 | P.PN ---
Subjective Date of Service: 07/07/20 Chief Complaint: Epigastric pain Subjective: Improving (Less epigastric pain noted. Overall improved) Physical Examination - Vital Signs Temperature: 99 F Blood Pressure: 128/62 Pulse: 82 Respirations: 16 Pulse Ox (%): 95 Assessment & Plan Discharge Plan: Home Plan to discharge in: Greater than 2 days Physician Review Additional Text: Physical exam: Vital signs stable. Pain overall improved. Heart: Regular rate and rhythm Lungs: Clear to auscultation Abdomen: Less distention noted. Pain to palpation significantly improved. Extremities: Good range of motion. No focal deficits. No significant edema. Impression: Nausea, vomiting, abdominal pain secondary to acute on chronic severe, recurrent hypertriglyceridemia pancreatitis with noted 2.6 cm pseudocyst within the pancreatic tail region and small amount of ascites Acute renal failure with metabolic acidosis Fatty liver Diabetes mellitus type 2 Anxiety GERD Obesity, BMI 30.4 Plan: Nausea, vomiting, abdominal pain secondary to acute on chronic severe, recurrent hypertriglyceridemia pancreatitis with noted 2.6 cm pseudocyst within the pancreatic tail region and small amount of ascites: Patient has improved. Triglycerides decreasing. Patient remains on insulin drip. Recheck triglyceride level later today. Once triglycerides below 500 or near 500 we will discontinue insulin drip. Continue aggressive IV fluids. We will continue to monitor closely. Spoke with surgery. Surgery plans to start clear liquid no sugar diet. Encourage ambulation. Encourage incentive spirometer. Anticipate improvement over the next 3 to 5 days. Acute renal failure with metabolic acidosis: Continue aggressive IV fluids. Patient on insulin drip. Nephrology to evaluate. Await recommendation. Fatty liver: Continue to address lifestyle modification education. Diabetes mellitus type 2: Patient currently on insulin drip due to hypertriglyceridemia. Will adjust IV fluids accordingly to maintain blood sugar between 150 and 200. Accu-Cheks in place. We will monitor this closely. Anxiety: We will provide medication for anxiety GERD: Continue PPI. Obesity, BMI 30.4: We will address lifestyle modification education. Time Spent Managing Pts Care (In Minutes): 55
[2020-07-07 16:15] LABS: LDL, Direct 74 mg/dL (100-129)
[2020-07-07 16:41] VITALS: BMI 33.1
--- NOTE | 2020-07-07 19:46 | P.PN ---
Date of Service: 07/07/20 Vital Signs Temp Pulse Resp BP Pulse Ox 98.4 F 78 15 128/83 98 07/07/20 18:00 07/07/20 18:00 07/07/20 18:00 07/07/20 18:00 07/07/20 18:00 Medications Acetaminophen (Acetaminophen 650mg/Rect Supp) 650 mg FL Q6H PRN PRN Reason: TEMP > 100' F Calcitriol (Calcitrol 0.25 Mcg Cap) 0.5 mcg PO DAILY [facility] Last Admin: 07/06/20 08:06 Dose: Not Given Documented by: Cholecalciferol (Vitamin D 5,000 Unit Cap) 5,000 unit PO DAILY [facility] Last Admin: 07/07/20 08:17 Dose: Not Given Documented by: Heparin Sodium (Porcine) (Heparin 5000 Unit/Ml 1 Ml Vial) 5,000 unit SQ Q12HR [facility] Last Admin: 07/07/20 08:30 Dose: 5,000 unit Documented by: Hydromorphone HCl (Hydromorphone Hcl 1 Mg/Ml Inj) 1 mg IV Q4H PRN PRN Reason: Pain scale 5-7 (Moderate) Hydromorphone HCl (Hydromorphone Hcl 2 Mg/Ml Inj) 2 mg IV Q3H PRN PRN Reason: Pain scale 8-10 (Severe) Last Admin: 07/07/20 16:38 Dose: 2 mg Documented by: Dextrose/Sodium Chloride (Dextrose 5% O.45% Saline) 1,000 mls @ 150 mls/hr IV .Q6H40M [facility] Last Admin: 07/07/20 06:43 Dose: 1,000 mls Documented by: Insulin Human Regular 100 unit (/ Sodium Chloride) 101 mls @ 0 mls/hr IV CONT [facility]; Protocol Last Admin: 07/07/20 01:03 Dose: 101 mls Documented by: Sodium Chloride (Sodium Chloride 0.45%) 1,000 mls @ 150 mls/hr IV .Q6H40M [facility] Last Admin: 07/06/20 13:51 Dose: Not Given Documented by: Folic Acid 1 mg/ Sodium (Chloride) 50.2 mls @ 100.4 mls/hr IV DAILY [facility] Last Admin: 07/07/20 08:32 Dose: 50.2 mls Documented by: Ketorolac Tromethamine (Ketorolac 30 Mg/Ml Inj) 30 mg IV Q6H PRN PRN Reason: Pain scale 5-7 (Moderate) Last Admin: 07/04/20 20:21 Dose: 30 mg Documented by: Ondansetron HCl (Ondansetron 4 Mg/2 Ml Vial) 4 mg IV Q6H PRN PRN Reason: NAUSEA / VOMITING Last Admin: 07/07/20 16:39 Dose: 4 mg Documented by: Pantoprazole Sodium (Pantoprazole 40 Mg Inj) 40 mg IVP DAILY [facility]; Protocol Last Admin: 07/07/20 08:31 Dose: 40 mg Documented by: Sodium Bicarbonate (Sodium Bicarb 325 Mg Tab) 650 mg PO TIDWM [facility] Last Admin: 07/07/20 12:00 Dose: Not Given Documented by: Sodium Chloride (Sodium Chloride 0.9% 10ml Inj) 10 ml IV UD PRN PRN Reason: Diluant Thiamine HCl (Thiamine 200 Mg/2 Ml Inj) 100 mg IVP DAILY [facility] Last Admin: 07/07/20 08:31 Dose: 100 mg Documented by: Assessment/ Plan: Nephrology No acute cardiac or pulmonary complaints. No CP or SOB. Nausea No acute events overnight. Vitals, medications, blood work and imaging reviewed in the chart. General: Alert, Oriented x3, Cooperative HEENT: Atraumatic Neck: Supple Respiratory: Clear to auscultation bilaterally Cardiovascular: No edema, Regular rate/rhythm Gastrointestinal: Non-distended, Tenderness, Guarding Musculoskeletal: No clubbing, No contractures Integumentary: No rashes, No cyanosis Neurological: Normal speech Blood work reviewed in the chart. Imagings Data: EXAM DESCRIPTION: CT - Abdomen Pelvis Wo Contrast - 07/05/2020 7:42 am CLINICAL HISTORY: Abdominal pain COMPARISON: April 2020 TECHNIQUE: Computed axial tomography of the abdomen and pelvis was obtained. IV and oral contrast were not requested. All CT scans are performed using dose optimization technique as appropriate and may include automated exposure control or mA/KV adjustment according to patient size. FINDINGS: The evaluation of solid organs, vessels and bowel is limited secondary to the lack of contrast administration. Extensive inflammatory changes surround the pancreas. Ill-defined fluid is present within the lesser sac and anterior pararenal spaces. Pancreas is inhomogeneous. Punctate calcification within pancreatic head. 2.6 centimeter pseudocyst within the pancreatic tail region. Small amount of ascites. Cholecystectomy. Fatty liver. Spleen, adrenals and kidneys appear grossly normal. No evidence diverticulitis IMPRESSION: Marked pancreatitis Conclusions/Impression: A/P: Continue the current POC and Medications other than the changes listed. AM Labs PRN. Recommend daily weight. Please see the orders for complete details. Hypokalemia/ Hyperkalemia -Replete potassium Acidosis -Discontinue oral bicarb Hypocalcemia -Replete IV calcium -Continue Vitamin D HypoPO4 -Replete prn DM II with hyperglycemia -RISS Anemia in chronic illness Iron deficiency 6% -Consider IV iron Acute pancreatitis -Aggressive IVF with 1/2NS -Advance diet as tolerated
[2020-07-07] MEDS: KETOROLAC 30 MG/ML INJ IV PRN (19:54)
[2020-07-07] MEDS ORDERED: KETOROLAC 30 MG/ML INJ ONE (20:01)
[2020-07-07] MEDS ORDERED: HYDROMORPHONE HCL 1 MG/ML INJ ONE ×2 (20:14→23:09)
[2020-07-07 20:48] LABS: Phosphorus 1.4 mg/dL (2.5-4.9)
[2020-07-07 20:49] LABS: Potassium 3.6 mmol/L (3.5-5.1)
[2020-07-07] MEDS: POTASS/SODIUM PHOSPHATE 1 PKT POWD.PACK PO ONE ×2 (21:52→22:06)
[2020-07-07] MEDS ORDERED: KCL 20 MEQ/100 mL IVPB 20 MEQ/100 ML BAG IV SCH (22:00)
[2020-07-07] MEDS ORDERED: POTASSIUM PHOS IN 0.9 % NACL 15 MMOL/250 ML BAG IV ONE ×2 (22:13→22:39)
[2020-07-07] MEDS ORDERED: POTASS/SODIUM PHOSPHATE 1 PKT POWD.PACK ONE (22:15)
[2020-07-08] MEDS ORDERED: POTASS/SODIUM PHOSPHATE 1 PKT POWD.PACK PO ONE
[2020-07-08] MEDS: HYDROMORPHONE HCL 2 MG/ML inj IV PRN ×6 (02:07→21:13)
[2020-07-08] MEDS ORDERED: HYDROMORPHONE HCL 1 MG/ML INJ ONE (02:25)
[2020-07-08] MEDS: D5 0.45 NS 1,000 ML IV SCH ×2 (03:44→05:00)
[2020-07-08] MEDS ORDERED: D5 0.45 NS 0 ML IV ONE (04:01)
[2020-07-08 05:47] LABS: Absolute Lymphocytes (CBC) 0.9 K/uL (0.7-4.9); Basophils % 0.4 % (0-1.3); Hematocrit 28.8 % (39.6-49.0); Lymphocytes % 19.3 % (15.3-44.8); MPV 10.3 fL (7.6-11.3); RBC Red Blood Cell Count 3.53 M/uL (4.33-5.43)
[2020-07-08] MEDS: NACHLORIDE 0.45% 1,000 ML IV SCH ×3 (05:51→16:43)
[2020-07-08] MEDS ORDERED: HYDROMORPHONE HCL 2 MG/ML inj ONE ×4 (06:19→20:10)
[2020-07-08 06:22] LABS: ALT/SGPT 57 U/L (12-78); Albumin 2.2 g/dL (3.4-5.0); Alkaline Phosphatase 126 U/L (45-117); BUN Blood Urea Nitrogen 11 mg/dL (7-18); Bicarbonate 25 mmol/L (21-32); Bilirubin Total 0.9 mg/dL (0.2-1.0); Glucose Level 185 mg/dL (74-106); Lipase 324 U/L (73-393); Phosphorus 2.5 mg/dL (2.5-4.9); Protein, Total 6.3 g/dL (6.4-8.2); Sodium Level 136 mmol/L (136-145)
[2020-07-08 06:30] LABS: AST/SGOT 22 U/L (15-37); Potassium 3.2 mmol/L (3.5-5.1)
[2020-07-08 06:41] LABS: LDL, Direct 82 mg/dL (100-129)
[2020-07-08] MEDS ORDERED: HYDROCODONE/APAP 10/325 TAB PO PRN (07:11)
[2020-07-08] MEDS: HEPARIN 5000 UNIT/ML 1 ML VIAL SQ SCH ×2 (08:49→20:12)
[2020-07-08] MEDS: ONDANSETRON 4 MG/2 ML VIAL IV PRN (08:49)
[2020-07-08] MEDS: THIAMINE 200 MG/2 ML INJ IVP SCH (08:49)
[2020-07-08] MEDS: PANTOPRAZOLE 40 MG INJ IVP SCH (08:49)
[2020-07-08] MEDS: VITAMIN D 5,000 UNIT CAP PO SCH (08:50)
[2020-07-08] MEDS: CALCITROL 0.25 MCG CAP PO SCH (08:50)
[2020-07-08] MEDS: POTASSIUM CL SA 10 MEQ TAB PO ONE ×2 (08:50→08:54)
[2020-07-08] MEDS: FOLIC ACID 1 MG in NA CHLORIDE 0.9% 50 ML IV SCH (09:17)
[2020-07-08] MEDS: D5 NS IV SCH ×6 (10:11→23:22)
[2020-07-08] MEDS: POTASSIUM CL IV SCH ×6 (10:11→23:22)
--- NOTE | 2020-07-08 10:44 | P.PN ---
Subjective Date of Service: 07/08/20 Chief Complaint: Epigastric pain Subjective: Improving Physical Examination - Vital Signs Temperature: 98.8 F Blood Pressure: 116/80 Pulse: 82 Respirations: 14 Pulse Ox (%): 99 - Physical Exam General: Alert, In no apparent distress, Cooperative Gastrointestinal: Other (soft, improved TTP, mild distention, no rebound) Assessment And Plan - Current Problems (Diagnosis) (1) Acute pancreatitis Onset Date: 03/21/14 Current Visit: No Status: Acute Plan: - continue IV hydration - serial exams - continue medical management - consider advance diet to low fat soft fulls Qualifiers: Pancreatitis type: other Acute pancreatitis complication: no infection or necrosis Qualified Code(s): K85.80 - Other acute pancreatitis without necrosis or infection Physician Review Additional Text: Physical exam: Vital signs stable. Pain overall improved. Heart: Regular rate and rhythm Lungs: Clear to auscultation Abdomen: Less distention noted. Pain to palpation significantly improved. Extremities: Good range of motion. No focal deficits. No significant edema. Impression: Nausea, vomiting, abdominal pain secondary to acute on chronic severe, recurrent hypertriglyceridemia pancreatitis with noted 2.6 cm pseudocyst within the pancreatic tail region and small amount of ascites Acute renal failure with metabolic acidosis Fatty liver Diabetes mellitus type 2 Anxiety GERD Obesity, BMI 30.4 Plan: Nausea, vomiting, abdominal pain secondary to acute on chronic severe, recurrent hypertriglyceridemia pancreatitis with noted 2.6 cm pseudocyst within the pancreatic tail region and small amount of ascites: Patient has improved. Triglycerides decreasing. Patient remains on insulin drip. Recheck triglyceride level later today. Once triglycerides below 500 or near 500 we will discontinue insulin drip. Continue aggressive IV fluids. We will continue to monitor closely. Spoke with surgery. Surgery plans to start clear liquid no sugar diet. Encourage ambulation. Encourage incentive spirometer. Anticipate improvement over the next 3 to 5 days. Acute renal failure with metabolic acidosis: Continue aggressive IV fluids. Patient on insulin drip. Nephrology to evaluate. Await recommendation. Fatty liver: Continue to address lifestyle modification education. Diabetes mellitus type 2: Patient currently on insulin drip due to hypertriglyceridemia. Will adjust IV fluids accordingly to maintain blood sugar between 150 and 200. Accu-Cheks in place. We will monitor this closely. Anxiety: We will provide medication for anxiety GERD: Continue PPI. Obesity, BMI 30.4: We will address lifestyle modification education.
[2020-07-08] MEDS ORDERED: HYDROCODONE/APAP 10/325 TAB ONE (12:15)
--- NOTE | 2020-07-08 13:28 | P.PN ---
Subjective Date of Service: 07/08/20 Chief Complaint: Epigastric pain Subjective: Improving, Doing well Physical Examination - Vital Signs Temperature: 98.7 F Blood Pressure: 138/80 Pulse: 79 Respirations: 14 Pulse Ox (%): 98 Assessment & Plan Discharge Plan: Home Plan to discharge in: Greater than 2 days Physician Review Additional Text: Physical exam: Vital signs stable. Pain overall improved. Heart: Regular rate and rhythm Lungs: Clear to auscultation Abdomen: Less distention noted. Pain to palpation significantly improved. Extremities: Good range of motion. No focal deficits. No significant edema. Impression: Nausea, vomiting, abdominal pain secondary to acute on chronic severe, recurrent hypertriglyceridemia pancreatitis with noted 2.6 cm pseudocyst within the pa ncreatic tail region and small amount of ascites Acute renal failure with metabolic acidosis Fatty liver Diabetes mellitus type 2 Anxiety GERD Obesity, BMI 30.4 Plan: Nausea, vomiting, abdominal pain secondary to acute on chronic severe, recurrent hypertriglyceridemia pancreatitis with noted 2.6 cm pseudocyst within the pancreatic tail region and small amount of ascites: Patient continues to improve. Triglycerides below 1000. Recheck triglycerides this afternoon. If near or below 500 will discontinue IV insulin drip. If so patient will be able to be transferred to the floor. Then will transition to low-fat liquid diet. Encourage ambulation. Encourage incentive spirometer. Continue IV fluids. Continue IV pain medication. Will add other as needed oral pain medication for mild and moderate pain. DVT prophylaxis in place. Anticipate improvement over the next 3 to 5 days. Acute renal failure with metabolic acidosis: Continue IV fluids. Continue with nephrology recommendations. Fatty liver: Continue to address lifestyle modification education. Diabetes mellitus type 2: Patient currently on insulin drip due to hypertriglyceridemia. Will continue to adjust IV fluids accordingly to maintain blood sugar between 150 and 200. Accu-Cheks in place. We will monitor this closely. Anxiety: We will provide medication for anxiety GERD: Continue PPI. Obesity, BMI 30.4: We will address lifestyle modification education. Time Spent Managing Pts Care (In Minutes): 55
[2020-07-08] MEDS: INSULIN -REGULAR HUMAN 100 UNIT in NA CHLORIDE 0.9% 100 ML IV SCH (15:55)
[2020-07-08 16:37] LABS: LDL, Direct 105 mg/dL (100-129)
[2020-07-08] MEDS: HYDROCODONE/APAP 7.5/325 MG TAB PO PRN (17:22)
[2020-07-08] MEDS ORDERED: HYDROCODONE/APAP 7.5/325 MG TAB ONE (17:40)
--- NOTE | 2020-07-08 19:18 | PN ---
Date of Progress Note: 07/08/2020 Subjective: The patient is seen in room 11 of emergency room hold. The patient is alert, awake, abl e to converse with me in full sentences. He speaks mainly Burmese. Objective: Vital Signs: His vitals are stable with blood pressure of 129/82, pulse of 92, respirati ons around 14-15. He is afebrile. Pain level is 0 on my evaluation. O2 sats about 97% on room air. Lungs: Clear to auscultation. Abdomen: Soft. Extremities: Revealed no edema. Heart: Sounds are regular. His glucose is still tracking between 150 to 178. He is currently on insulin drip and therefore stil l on the ER hold. Once insulin drip is discontinued, the patient will likely be moving to the floor for further hospitalization and monitoring as needed. The patient clinically looks well today. He s eems to have improved his pain. Nausea, vomiting are improved currently. On evaluation of his lab w ork, his labs show WBC count of 4.9, hemoglobin 9.6, hematocrit 28.8, platelet count of 130. [facility] m[facility]itt show sodium 136, potassium 3.2, chloride 105, bicarb is 25, BUN 11, creatinine 0.6. His calcium is 8.0, albumin 2.2, LDL was 82, lipase 324. Assessment/plan: 1.Acute kidney injury in the setting of pancreatitis, also with severe hypoglycemia, hypokalemia. A t this time, potassium has been repleted. He is getting potassium replacement today as well. He has been off his bicarb. His acidosis is now corrected. Bicarb level on last lab work was 25. 2.Hypocalcemia, getting vitamin D. 3.Diabetes type 2 on insulin drip, once that is discontinued, the patient should be able to get back to the floor if further treatment is needed. He is getting IV fluids and advancing diet a gently as tolerated. 4.Acute pancreatitis, but the pain seems to be improved and his lipase levels are in 300 range and clinically he is looking improved. /OWEN Voice ID: [id number] Report ID: [id number]
[2020-07-08] MEDS: TRAMADOL HCL 50 MG TAB PO PRN (19:54)
[2020-07-08] MEDS ORDERED: HEPARIN 5000 UNIT/ML 1 ML VIAL ONE (20:09)
[2020-07-08] MEDS ORDERED: TRAMADOL HCL 50 MG TAB ONE (20:11)
[2020-07-08] MEDS ORDERED: BISACODYL E.C. 5 MG TAB PO PRN (23:12)
[2020-07-08] MEDS ORDERED: BISACODYL E.C. 5 MG TAB PO ONE (23:54)
[2020-07-09] MEDS: NACHLORIDE 0.45% 1,000 ML IV SCH ×4 (01:51→18:44)
[2020-07-09] MEDS: HYDROCODONE/APAP 7.5/325 MG TAB PO PRN ×3 (02:12→22:51)
[2020-07-09] MEDS ORDERED: HYDROCODONE/APAP 7.5/325 MG TAB ONE (02:29)
[2020-07-09] MEDS ORDERED: SIMETHICONE 125 MG TAB PO PRN (02:57)
[2020-07-09] MEDS ORDERED: SIMETHICONE 80 MG TAB ONE (03:25)
[2020-07-09 05:49] LABS: Absolute Lymphocytes (CBC) 0.8 K/uL (0.7-4.9); Basophils % 0.1 % (0-1.3); Hematocrit 29.2 % (39.6-49.0); Lymphocytes % 11.2 % (15.3-44.8); RBC Red Blood Cell Count 3.62 M/uL (4.33-5.43)
[2020-07-09 06:07] LABS: ALT/SGPT 44 U/L (12-78); AST/SGOT 16 U/L (15-37); Albumin 2.2 g/dL (3.4-5.0); Alkaline Phosphatase 148 U/L (45-117); BUN Blood Urea Nitrogen 4 mg/dL (7-18); Bicarbonate 26 mmol/L (21-32); Bilirubin Total 0.9 mg/dL (0.2-1.0); Glucose Level 176 mg/dL (74-106); Lipase 250 U/L (73-393); Magnesium 1.8 mg/dL (1.8-2.4); Potassium 3.4 mmol/L (3.5-5.1); Protein, Total 6.5 g/dL (6.4-8.2); Sodium Level 140 mmol/L (136-145)
[2020-07-09] MEDS: D5 NS IV SCH ×2 (06:12)
[2020-07-09] MEDS: POTASSIUM CL IV SCH ×2 (06:12)
[2020-07-09 06:16] LABS: White Blood Cell Scan OK (OK)
[2020-07-09 06:17] LABS: Blood Morphology Comment NOT SEEN (NOT SEEN); Platelet Estimate ADEQ
[2020-07-09] MEDS ORDERED: clonazePAM 0.5 MG TAB PO PRN (07:37)
[2020-07-09] MEDS: HYDROMORPHONE HCL 2 MG/ML inj IV PRN ×3 (07:37→18:44)
[2020-07-09] MEDS ORDERED: GLUCAGON 1 MG/VIAL IM PRN (07:39)
[2020-07-09] MEDS ORDERED: HYDROMORPHONE HCL 2 MG/ML inj ONE (07:51)
--- NOTE | 2020-07-09 07:52 | P.PN ---
Subjective Date of Service: 07/09/20 Chief Complaint: Epigastric pain Subjective: Improving (Doing well at this time. Less abdominal pain noted. No significant nausea or vomiting.) Physical Examination - Vital Signs Temperature: 98.7 F Blood Pressure: 139/112 Pulse: 76 Respirations: 23 Pulse Ox (%): 98 Assessment & Plan Discharge Plan: Home Plan to discharge in: 48 Hours Physician Review Additional Text: Physical exam: Vital signs stable. Has put out over 4 L of urine over the last 24 hours. Pain overall improved and controlled with medication. Lipase level normal. Triglyceride level below 500. Heart: Regular rate and rhythm Lungs: Clear to auscultation Abdomen: No significant distention noted. Pain to palpation significantly improved. Extremities: Good range of motion. No focal deficits. No significant edema. Impression: Nausea, vomiting, abdominal pain secondary to acute on chronic severe, recurrent hypertriglyceridemia pancreatitis with noted 2.6 cm pseudocyst within the pancreatic tail region and small amount of ascites Acute renal failure with metabolic acidosis Fatty liver Diabetes mellitus type 2 Anxiety Anemia of chronic disease GERD Obesity, BMI 30.4 Plan: Nausea, vomiting, abdominal pain secondary to acute on chronic severe, recurrent hypertriglyceridemia pancreatitis with noted 2.6 cm pseudocyst within the pancreatic tail region and small amount of ascites: Patient doing well at this time. Triglycerides below 500. Lipase normal. Will discontinue IV insulin drip. Decrease IV fluids. Will transition medication to oral. Restart Lopid and fish oil. We will also start Creon. Continue pain control medication. Will transition to full liquid sugar-free diet. Encourage ambulation. Encourage incentive spirometer. Continue DVT prophylaxis. We will transition and transfer to the medical floor. Anticipate improvement over the next 24 to 48 hours with possible discharge as early as tomorrow. I will turn the service over to the hospitalist team tomorrow. I will go plan of care with him. Acute renal failure with metabolic acidosis: We will decrease IV fluids. Patient has put out over 4 L of urine over the last 24 hours. Continue with nephrology recommendations. Fatty liver: Continue to address lifestyle modification education. Diabetes mellitus type 2: A1c above 10. We will discontinue IV insulin drip for his triglycerides. Will transition to Lantus 10 units subcu twice daily. Continue insulin sliding scale and monitor Accu-Cheks. Will adjust accordingly. Anxiety: We will provide medication Anemia of chronic disease: We will monitor closely. GERD: We will transition to oral medicationPPI Obesity, BMI 30.4: Continue to address lifestyle modification education. Time Spent Managing Pts Care (In Minutes): 55
[2020-07-09] MEDS ORDERED: POTASSIUM CL SA 10 MEQ TAB PO ONE ×2 (08:00→09:00)
[2020-07-09] MEDS: INSULIN GLARGINE 100 UNITS/ML SQ SCH ×2 (08:22→20:38)
[2020-07-09] MEDS ORDERED: D50W 25 GM/50 ML VIAL IV PRN (08:26)
[2020-07-09] MEDS ORDERED: INSULIN GLARGINE 100 UNITS/ML SQ ONE (08:37)
[2020-07-09] MEDS: VITAMIN D 5,000 UNIT CAP PO SCH (08:46)
[2020-07-09] MEDS: DOCOSAHEXANOIC AC/EPA 1000 MG PO SCH ×2 (08:46→20:38)
[2020-07-09] MEDS: FOLIC ACID 1 MG TABLET PO SCH (08:46)
[2020-07-09] MEDS: PANTOPRAZOLE 40MG TABLET PO SCH (08:48)
[2020-07-09] MEDS: HEPARIN 5000 UNIT/ML 1 ML VIAL SQ SCH ×2 (08:48→20:38)
[2020-07-09] MEDS: CALCITROL 0.25 MCG CAP PO SCH (08:48)
[2020-07-09] MEDS: THIAMINE HCL 100 MG TABLET PO SCH ×2 (08:48→20:38)
[2020-07-09] MEDS ORDERED: THIAMINE HCL 100 MG TABLET ONE (08:59)
[2020-07-09] MEDS ORDERED: PANTOPRAZOLE 40MG TABLET PO ONE (08:59)
[2020-07-09] MEDS ORDERED: HEPARIN 5000 UNIT/ML 1 ML VIAL ONE (08:59)
[2020-07-09] MEDS: LIPASE PO SCH ×4 (09:00→20:39)
[2020-07-09] MEDS ORDERED: NACHLORIDE 0.45% 1,000 ML IV ONE (09:00)
[2020-07-09] MEDS ORDERED: FOLIC ACID 1 MG TABLET ONE (09:00)
[2020-07-09] MEDS: AMYLASE PO SCH ×4 (09:00→20:39)
[2020-07-09] MEDS: PROTEASE PO SCH ×4 (09:00→20:39)
[2020-07-09] MEDS: gemfibroziL 600 MG TAB PO SCH ×2 (09:20→20:38)
[2020-07-09] MEDS: INSULIN -REGULAR HUMAN 50 UNIT/0.5 ML ML SQ SCH ×3 (10:57→20:39)
[2020-07-09] MEDS ORDERED: MAGNESIUM SULFATE 1 gm IVPB 1 GM/100 ML BAG IV ONE (12:00)
[2020-07-09] MEDS: TRAMADOL HCL 50 MG TAB PO PRN (17:37)
--- NOTE | 2020-07-09 20:46 | PN ---
Subjective: The patient is seen in room 211 on second floor at [facility]. Th e patient is overall doing well. He is alert, awake. Denies any complaints of pain right now. Objective: Vital signs: Stable with blood pressure running in about 130-150 range. He did have a r eading of about 170/90 earlier. Lungs: Clear to auscultation. Abdomen: Soft. Extremities: Revealed no edema. Heart: Sounds are regular. Laboratory Data: His lab data is reviewed. Labs show WBC count of 6.8, hemoglobin and hematocrit 9. 7/29.2, platelet count of 146. Chemistries show sodium of 140, potassium 3.4, chloride 107, bicarb 2 6, BUN 4, creatinine 0.53. His glucose has been running between 170 to about 195. The patient is cu rrently making good urine output. Has been on decreased IVF at 100 cc an hour. Assessment And Plan: 1.The patient is overall improved compared to yesterday. He is alert, awake, talking in full senten jhonny and was then comfortable. His acute kidney injury seems to have improved. At this point, pancre atitis seems to be calming down also. I agree with cutting back the IV fluids to 100 cc an hour. Mo nitor urine output. 2.Hypocalcemia, on vitamin D. 3.Diabetes mellitus. Counseled about diet and some detail. Also advised him to not take any alcoho l intake. The patient says that he has stopped alcohol long time ago and understands not to resume t hat given his status with pancreatic issues. 4.Acute pancreatitis, seems to be calming down. At this point, the patient seems to be improving. Continue to advance diet. The patient is stable, may be we will disc harge in the next day or 2. /OWEN Voice ID: [id number] Report ID: [id number]
[2020-07-10] MEDS: ONDANSETRON 4 MG/2 ML VIAL IV PRN (00:22)
[2020-07-10] MEDS: HYDROMORPHONE HCL 2 MG/ML inj IV PRN ×3 (00:57→11:59)
[2020-07-10] MEDS: NACHLORIDE 0.45% 1,000 ML IV SCH ×2 (03:32→12:00)
[2020-07-10] MEDS: TRAMADOL HCL 50 MG TAB PO PRN ×2 (03:33→15:35)
[2020-07-10 05:31] LABS: Absolute Lymphocytes (CBC) 0.9 K/uL (0.7-4.9); Basophils % 0.3 % (0-1.3); Hematocrit 29.1 % (39.6-49.0); Lymphocytes % 13.9 % (15.3-44.8); MPV 9.7 fL (7.6-11.3); RBC Red Blood Cell Count 3.58 M/uL (4.33-5.43)
[2020-07-10 05:55] LABS: ALT/SGPT 37 U/L (12-78); AST/SGOT 15 U/L (15-37); Albumin 2.3 g/dL (3.4-5.0); Alkaline Phosphatase 152 U/L (45-117); BUN Blood Urea Nitrogen 6 mg/dL (7-18); Bicarbonate 23 mmol/L (21-32); Glucose Level 183 mg/dL (74-106); Magnesium 1.7 mg/dL (1.8-2.4); Phosphorus 3.8 mg/dL (2.5-4.9); Potassium 3.7 mmol/L (3.5-5.1); Protein, Total 6.6 g/dL (6.4-8.2); Sodium Level 137 mmol/L (136-145)
[2020-07-10] MEDS: PROTEASE PO SCH ×3 (07:30→15:18)
[2020-07-10] MEDS: INSULIN -REGULAR HUMAN 50 UNIT/0.5 ML ML SQ SCH ×3 (07:30→16:14)
[2020-07-10] MEDS: LIPASE PO SCH ×3 (07:30→15:18)
[2020-07-10] MEDS: AMYLASE PO SCH ×3 (07:30→15:18)
[2020-07-10] MEDS ORDERED: MAGNESIUM SULFATE 1 gm IVPB 1 GM/100 ML BAG IV ONE (07:30)
[2020-07-10] MEDS: THIAMINE HCL 100 MG TABLET PO SCH (08:18)
[2020-07-10] MEDS: DOCOSAHEXANOIC AC/EPA 1000 MG PO SCH (08:18)
[2020-07-10] MEDS: PANTOPRAZOLE 40MG TABLET PO SCH (08:18)
[2020-07-10] MEDS: CALCITROL 0.25 MCG CAP PO SCH (08:18)
[2020-07-10] MEDS: VITAMIN D 5,000 UNIT CAP PO SCH (08:19)
[2020-07-10] MEDS: FOLIC ACID 1 MG TABLET PO SCH (08:19)
[2020-07-10] MEDS: HEPARIN 5000 UNIT/ML 1 ML VIAL SQ SCH (08:20)
[2020-07-10] MEDS: INSULIN GLARGINE 100 UNITS/ML SQ SCH (08:20)
[2020-07-10] MEDS: gemfibroziL 600 MG TAB PO SCH (08:21)
--- NOTE | 2020-07-10 08:26 | P.PN ---
Subjective Date of Service: 07/09/20 Chief Complaint: Epigastric pain Subjective: Improving Physical Examination - Vital Signs Temperature: 98.7 F Blood Pressure: 123/67 Pulse: 87 Respirations: 16 Pulse Ox (%): 99 - Physical Exam General: Alert, In no apparent distress, Cooperative Cardiovascular: Regular rate/rhythm Gastrointestinal: Other (soft, mild TTP, mild improved distention) Assessment And Plan - Current Problems (Diagnosis) (1) Acute pancreatitis Onset Date: 03/21/14 Current Visit: No Status: Acute Plan: - continue IV hydration - serial exams - continue medical management - consider advance diet to low fat Qualifiers: Pancreatitis type: other Acute pancreatitis complication: no infection or necrosis Qualified Code(s): K85.80 - Other acute pancreatitis without necrosis or infection Physician Review Additional Text: Physical exam: Vital signs stable. Has put out over 4 L of urine over the last 24 hours. Pain overall improved and controlled with medication. Lipase level normal. Triglyceride level below 500. Heart: Regular rate and rhythm Lungs: Clear to auscultation Abdomen: No significant distention noted. Pain to palpation significantly improved. Extremities: Good range of motion. No focal deficits. No significant edema. Impression: Nausea, vomiting, abdominal pain secondary to acute on chronic severe, recurrent hypertriglyceridemia pancreatitis with noted 2.6 cm pseudocyst within the pancreatic tail region and small amount of ascites Acute renal failure with metabolic acidosis Fatty liver Diabetes mellitus type 2 Anxiety Anemia of chronic disease GERD Obesity, BMI 30.4 Plan: Nausea, vomiting, abdominal pain secondary to acute on chronic severe, recurrent hypertriglyceridemia pancreatitis with noted 2.6 cm pseudocyst within the pancreatic tail region and small amount of ascites: Patient doing well at this time. Triglycerides below 500. Lipase normal. Will discontinue IV insulin drip. Decrease IV fluids. Will transition medication to oral. Restart Lopid and fish oil. We will also start Creon. Continue pain control medication. Will transition to full liquid sugar-free diet. Encourage ambulation. Encourage incentive spirometer. Continue DVT prophylaxis. We will transition and transfer to the medical floor. Anticipate improvement over the next 24 to 48 hours with possible discharge as early as tomorrow. I will turn the service over to the hospitalist team tomorrow. I will go plan of care with him. Acute renal failure with metabolic acidosis: We will decrease IV fluids. Patient has put out over 4 L of urine over the last 24 hours. Continue with nephrology recommendations. Fatty liver: Continue to address lifestyle modification education. Diabetes mellitus type 2: A1c above 10. We will discontinue IV insulin drip for his triglycerides. Will transition to Lantus 10 units subcu twice daily. Continue insulin sliding scale and monitor Accu-Cheks. Will adjust accordingly. Anxiety: We will provide medication Anemia of chronic disease: We will monitor closely. GERD: We will transition to oral medicationPPI Obesity, BMI 30.4: Continue to address lifestyle modification education.
[2020-07-10 08:36] LABS: Blood Morphology Comment NOT SEEN (NOT SEEN); Platelet Estimate ADEQ
[2020-07-10 08:51] VITALS: O2SAT 99
[2020-07-10] MEDS ORDERED: POTASSIUM CL SA 10 MEQ TAB PO ONE (09:00)
[2020-07-10] MEDS: HYDROCODONE/APAP 7.5/325 MG TAB PO PRN ×2 (10:13→16:28)
[2020-07-10 17:12] VITALS: BP 154/83; TEMP 98.7
[2020-07-10] MEDS ORDERED: ENSURE HIGH PROTEIN 237 ML CAN PO SCH (21:00)
--- NOTE | 2020-07-17 19:38 | P.DS ---
Discharge Date: 07/10/20 Disposition: ROUTINE DISCHARGE Discharge Condition: GOOD Reason for Admission: Epigastric pain Consultations: General surgery Brief History of Present Illness: Patient is a 45 year old male with a PMHx significant for Diabetes, GERD, hypertriglyceridemia , pancreatitis who presents with c\o of epigastric pain onset today. Patient rated pain as 10\10 in severity and described pain as stabbing in quality. Patient reported associated s\s of nausea and vomiting. Patient denies any other s\s. Symptoms are aggravated or relieved by nothing. Patient decided to present to the hospital due to worsening symptoms. Hospital Course: Patient is doing well at this time. Patient is feeling much better and tolerating diet. Patient is ambulating without difficulty. At this time, patient is stable for discharge home. Vital Signs/Physical Exam: Temp Pulse Resp BP Pulse Ox 98.7 F 82 16 154/83 H 99 07/10/20 16:00 07/10/20 16:00 07/10/20 17:28 07/10/20 16:00 07/10/20 17:28 General: Alert, In no apparent distress, Oriented x3 Laboratory Data at Discharge: WBC 6.50 K/uL (4.3-10.9) 07/10/20 05:05 Hgb 9.7 g/dL (13.6-17.9) L 07/10/20 05:05 Hct 29.1 % (39.6-49.0) L 07/10/20 05:05 Plt Count 170 K/uL (152-406) 07/10/20 05:05 Sodium 137 mmol/L (136-145) 07/10/20 05:05 Potassium 3.7 mmol/L (3.5-5.1) 07/10/20 05:05 BUN 6 mg/dL (7-18) L 07/10/20 05:05 Creatinine 0.44 mg/dL (0.55-1.3) L 07/10/20 05:05 Glucose 183 mg/dL (74-106) H 07/10/20 05:05 Uric Acid 6.4 mg/dL (3.5-7.2) 07/06/20 04:51 Phosphorus 3.8 mg/dL (2.5-4.9) D 07/10/20 05:05 Magnesium 1.7 mg/dL (1.8-2.4) L 07/10/20 05:05 Total Bilirubin 1.0 mg/dL (0.2-1.0) 07/10/20 05:05 AST 15 U/L (15-37) 07/10/20 05:05 ALT 37 U/L (12-78) 07/10/20 05:05 Alkaline Phosphatase 152 U/L (45-117) H 07/10/20 05:05 Troponin I Cancelled 07/04/20 18:52 Triglycerides 340 mg/dL (<150) H 07/09/20 05:22 Cholesterol 576 mg/dL (<200) H 07/04/20 17:33 LDL Cholesterol Direct 105 mg/dL (100-129) 07/08/20 15:16 HDL Cholesterol 34 mg/dL (40-60) L 07/04/20 17:33 Cholesterol/HDL Ratio 16.94 07/04/20 17:33 Lipase 250 U/L (73-393) 07/09/20 05:22 Home Medications: Insulin Degludec [Tresiba Flextouch U-200] 30 units SQ BID 11/01/19 Fenofibrate,Micronized [Fenofibrate] 200 mg PO DAILY 03/07/20 Metformin HCl 1,000 mg PO BID 03/07/20 Pantoprazole Sodium [Protonix] 40 mg PO DAILY 03/07/20 clonazePAM [Klonopin*] 0.5 mg PO TID PRN #30 tab 03/09/20 gemfibroziL [Lopid*] 600 mg PO BID #60 tab 03/09/20 Lipase/Protease/Amylase [Sneha Catherine 36,000 Units Capsule] 1 each PO ACHS #120 capsule. 05/02/20 traMADol HCL [Ultram*] 50 mg PO TID PRN #30 tab 05/02/20 Docosahexanoic AC/Epa [Fish Oil 1,000 MG*] 2,000 mg PO BID #120 cap 07/10/20 Hydrocodone 10/APAP 325 [[place] 10/325] 1 tab PO Q6H PRN #40 tab 07/10/20 Thiamine HCl [Vitamin B-1*] 100 mg PO BID #60 tablet 07/10/20 gemfibroziL [Lopid*] 600 mg PO BID #60 tab 07/10/20 New Medications: Docosahexanoic AC/Epa [Fish Oil 1,000 MG*] 2,000 mg PO BID #120 cap gemfibroziL [Lopid*] 600 mg PO BID #60 tab Hydrocodone 10/APAP 325 [[place] 10/325] 1 tab PO Q6H PRN #40 tab PRN Reason: Pain Thiamine HCl [Vitamin B-1*] 100 mg PO BID #60 tablet Diet: low fat Activity: Fall precautions Followup: Yobany Sanon DO [ACTIVE - CAN ADMIT] - NONE,NONE [Primary Care Provider] - Time spent managing pt's care (in minutes): 35
== END 2020-07-10 17:58 | disposition home or self-care (01) | DRG 439 ==
LOC: ER 10:44 → ERHOLD 16:33 → 2ND 07-09 11:44
PROVIDERS: ADMIT Family Medicine; ATTEND Hospitalist
DX: K85.80 Other acute pancreatitis without necrosis or infection (principal); K86.3 Pseudocyst of pancreas; R18.8 Other ascites; N17.9 Acute kidney failure, unspecified; E87.2 Acidosis; E78.1 Pure hyperglyceridemia; K86.1 Other chronic pancreatitis; E11.65 Type 2 diabetes mellitus with hyperglycemia; K21.9 Gastro-esophageal reflux disease without esophagitis; F41.9 Anxiety disorder, unspecified; D72.829 Elevated white blood cell count, unspecified; R00.0 Tachycardia, unspecified; E78.5 Hyperlipidemia, unspecified; K76.0 Fatty (change of) liver, not elsewhere classified; E87.5 Hyperkalemia; E83.51 Hypocalcemia; E83.39 Other disorders of phosphorus metabolism; D63.8 Anemia in other chronic diseases classified elsewhere; E87.6 Hypokalemia; E11.649 Type 2 diabetes mellitus with hypoglycemia without coma; E66.9 Obesity, unspecified; Z68.30 Body mass index [BMI] 30.0-30.9, adult; Z79.899 Other long term (current) drug therapy; Z90.49 Acquired absence of other specified parts of digestive tract; Z79.4 Long term (current) use of insulin; Z20.822 Contact with and (suspected) exposure to COVID-19
CPT/HCPCS: 36415; 74176; 74181; 80048; 80053; 80061; 80076; 82010; 82330; 82947; 83036; 83540; 83605; 83690; 83735; 84100; 84132; 84466; 84478; 84550; 85025; 87040; 96361; 96374; 96375; 99284; C9113; J0610; J1170; J1644; J1815; J2405; J3411; J3475; J3480; J7030; J7040; J7799; U0003

== ENCOUNTER 2021-03-09 13:03 | Inpatient (IN) | payer OTHER ==
--- OUTSIDE RECORDS SUMMARY | 2021-03-09 13:06 | XMS REPORT | Continuity of Care Document ---
:[address] [facility] t Address [address] [place] [address] Care Team Providers Name Role Phone Unavailable Unavailable Unavailable Problems This patient has no known problems. Allergies, Adverse Reactions, Alerts This patient has no known allergies or adverse reactions. Medications This patient has no known medications. Procedures This patient has no known procedures. Results This patient has no known results.
[2021-03-09] MEDS ORDERED: NA CHLORIDE 0.9% 1,000 ML ONE (20:40)
[2021-03-09] MEDS ORDERED: HYDROMORPHONE HCL 1 MG/ML INJ ONE ×2 (20:40→23:34)
[2021-03-09] MEDS ORDERED: NA CHLORIDE 0.9% 50 ML ONE ×2 (20:40→23:34)
[2021-03-09] MEDS ORDERED: ONDANSETRON 4 MG/2 ML VIAL ONE ×2 (20:40→23:34)
[2021-03-09 21:17] LABS: HDL Cholesterol 38 mg/dL (40-60)
[2021-03-09 22:05] LABS: ALT/SGPT 39 U/L (12-78); AST/SGOT 19 U/L (15-37); Albumin 3.8 g/dL (3.4-5.0); Alkaline Phosphatase 60 U/L (45-117); BUN Blood Urea Nitrogen 15 mg/dL (7-18); Bicarbonate 19 mmol/L (21-32); Bilirubin Direct < 0.1 mg/dL (0-0.2); Bilirubin Total 0.5 mg/dL (0.2-1.0); Glucose Level 300 mg/dL (74-106); Potassium 3.8 mmol/L (3.5-5.1); Protein, Total 8.3 g/dL (6.4-8.2); Sodium Level 139 mmol/L (136-145)
[2021-03-09 22:06] LABS: LDL, Direct 88 mg/dL (100-129)
[2021-03-09 22:20] LABS: Lipase 3376 U/L (73-393)
[2021-03-09 22:26] LABS: Arterial Blood Carboxyhemoglob 1.1 % (0-1.5); Blood Gas Oxyhemoglobin 91.2 % (94-97); Blood O2 Saturation 93.4 % (92-98.5)
--- NOTE | 2021-03-09 23:09 | ER ---
Nurse's Notes [facility] Name: Javier Rutherford Age: 46 yrs Sex: Male : 1975 Arrival Date: 03/09/2021 Time: 13:06 Bed 14 Private MD: Diagnosis: Acute pancreatitis without necrosis or infection, unspecified Presentation: 03/09 13:40 Chief complaint: Patient states: mid-left upper abdominal pain radiating to left back hathaway onset 5 am this morning. Pt reports hx of pancreatitis, DM, has not taken any pain medication, states "Dilaudid is the only thing that makes me feel better". Pt reports nausea, denies V/D, fever. Pt denies urinary symptoms. Coronavirus screen: Vaccine status: Patient reports receiving the 2nd dose of the covid vaccine. Client denies travel out of the [place] in the last 14 days. Ebola Screen: Patient negative for fever greater than or equal to 101.5 degrees Fahrenheit, and additional compatible Ebola Virus Disease symptoms Patient denies exposure to infectious person. Patient denies travel to an Ebola-affected area in the 21 days before illness onset. No symptoms or risks identified at this time. Initial Sepsis Screen: Does the patient meet any 2 criteria? No. Patient's initial sepsis screen is negative. Does the patient have a suspected source of infection? No. Patient's initial sepsis screen is negative. Risk Assessment: Do you want to hurt yourself or someone else? Patient reports no desire to harm self or others. Onset of symptoms is unknown. 13:40 Method Of Arrival: Ambulatory hathaway 13:40 Acuity: HANY 3 hathaway 13:52 Note BG in triage 312. hathaway Triage Assessment: 13:45 General: Appears distressed, uncomfortable, Behavior is crying. Pain: Complains of pain hathaway in abdomen mid and LUQ radiating to left back. GI: Reports lower abdominal pain. Historical: - Allergies: 13:44 No Known Allergies; hathaway - Home Meds: 13:44 atorvastatin Oral once daily [Active]; fenofibrate 200 mg Oral tab 1 cap once daily hathaway [Active]; metformin 1,000 mg Oral tab 1 tab 2 times per day [Active]; Novolog 100 unit/mL Sub-Q soln [Active]; Tresiba FlexTouch U-100 100 unit/mL (3 mL) subcutaneous inpn 30 unit [Active]; - PMHx: 13:44 Diabetes - NIDDM; fatty liver; Hyperlipidemia; Pancreatitis; hathaway - Immunization history:: Adult Immunizations up to date, Client reports receiving the 2nd dose of the Covid vaccine. - Social history:: Smoking status: Patient denies any tobacco usage or history of. Patient uses Patient/guardian denies using alcohol, street drugs. Screenin:55 Abuse screen: Denies threats or abuse. Denies injuries from another. Nutritional kd3 screening: No deficits noted. Tuberculosis screening: No symptoms or risk factors identified. Fall Risk IV access (20 points). Assessment: 03/10 02:51 GI: Bowel sounds present X 4 quads. Abdomen is tender to palpation X 4 quads. kd3 02:51 Reassessment: Patient states feeling better. Patient states symptoms have improved. kd3 General: Appears in no apparent distress. Behavior is calm, cooperative, appropriate for age. Pain: Denies pain. 03/11 06:23 General: pt resting at this time, no apparent distress noted, respirations even and non as6 labored . 08:00 Reassessment: Pt aaox4, resting at this time, reports tolerable pain, comfort measures eo2 met, will continue to monitor. 12:00 Reassessment: Med administered documented in [employer] by Mikayla CHARLES. eo2 Vital Signs: 03/09 13:40 BP 135 / 96; Pulse 83; Resp 17; Temp 98.2; Pulse Ox 99% ; Weight 90.72 kg; Height 5 ft. hathaway 8 in. (172.72 cm); Pain 10/10; 18:39 BP 145 / 82 LA Sitting (auto/reg); Pulse 87; Resp 16 S; Pulse Ox 99% on R/A; mb4 21:08 BP 149 / 86; Pulse 80; Resp 18; Temp 98.3(O); Pulse Ox 97% on R/A; tt3 03/10 02:51 BP 138 / 80; Pulse 82; Resp 17; Pulse Ox 100% on R/A; kd3 04:52 BP 141 / 82; Pulse 92; Resp 18; Pulse Ox 99% on R/A; kd3 06:18 BP 140 / 82; Pulse 62; Resp 17; Pulse Ox 99% on R/A; kd3 03/11 06:22 BP 132 / 79; Pulse 74; Resp 18 S; Pulse Ox 99% on R/A; as6 12:00 BP 117 / 78; Pulse 80; Resp 15; Pulse Ox 100% ; eo2 14:00 BP 132 / 83; Pulse 71; Resp 17; Pulse Ox 100% ; Pain 7/10; eo2 16:00 BP 119 / 85; Pulse 69; Resp 15; Pulse Ox 99% ; Pain 5/10; eo2 18:00 BP 139 / 89; Pulse 72; Resp 14; Temp 98.8; Pulse Ox 100% ; Pain 6/10; eo2 03/09 13:40 Body Mass Index 30.41 (90.72 kg, 172.72 cm) hathaway Vitals: 12:00 Cardiac Rhythm Assessment Regular Sinus rhythm. eo2 16:00 Cardiac Rhythm Assessment Regular Sinus rhythm. eo2 ED Course: 03/09 13:06 Patient arrived in ED. ds1 13:44 Triage completed. hatahway 20:07 Sarah Costa FNP-C [facility]. kb 20:07 Kolton Licona MD is Attending Physician. kb 20:22 Kathryn Harrington RN is Primary Nurse. kd3 21:55 Arm band placed on right wrist. kd3 22:57 CT Abd/Pelvis - IV Contrast Only In Process Unspecified. EDMS 23:08 Arpan Mckeon MD is Hospitalizing Provider. kb 23:29 Ketone, Serum Sent. kd3 03/10 02:51 Patient has correct armband on for positive identification. Bed in low position. Call kd3 light in reach. Side rails up X2. 03:04 COVID-19 (Coronavirus) Document "Date of Onset" if Symptomatic Sent. kd3 Administered Medications: 03/09 20:51 Drug: NS 0.9% 1000 ml Route: IV; Rate: 1000 ml; Site: left antecubital; kd3 03/10 02:50 Follow up: IV Status: Completed infusion kd3 03/09 20:51 Drug: Zofran (Ondansetron) 4 mg Route: IVP; Site: left antecubital; kd3 03/10 02:50 Follow up: Response: No adverse reaction kd3 03/09 20:51 Drug: Dilaudid (HYDROmorphone) 1 mg Route: IVP; Infused Over: 30 mins; Site: left kd3 antecubital; 03/10 02:50 Follow up: Response: No adverse reaction; Pain is decreased kd3 03/09 23:32 Drug: Dilaudid (HYDROmorphone) 1 mg Route: IVP; Site: left antecubital; kd3 03/10 02:50 Follow up: Response: No adverse reaction; Pain is decreased kd3 03/09 23:32 Drug: Zofran (Ondansetron) 4 mg Route: IVP; Site: left antecubital; kd3 03/10 02:49 Follow up: Response: No adverse reaction kd3 00:44 Drug: NS 0.9% 1000 ml Route: IV; Rate: 1000 ml; Site: left antecubital; kd3 02:50 Follow up: IV Status: Completed infusion kd3 Outcome: 03/09 23:09 Decision to Hospitalize by Provider. kb 03/11 20:57 Admitted to Tele room 417, Report called to ARACELI Giordano lp1 20:57 Patient left the ED. lp1 Signatures: Dispatcher [employer] EDMT Sarah Costa, NAIL TECH-C NAIL TECH-Samantha Dunn ds1 Adrienne Kelly RN RN lp1 Yanira Ledezma mb4 Enzo Nieves tt3 Harshil Ruiz RN RN as6 Kathryn Harrington RN RN kd3 Alice Vaughan RN RN ha Owoade, Eunice, RN RN eo2
--- NOTE | 2021-03-09 23:09 | EDPHYS ---
Physician Documentation [facility] Name: Javier Rutherford Age: 46 yrs Sex: Male : 1975 Arrival Date: 03/09/2021 Time: 13:06 Bed 14 Private MD: SELENE Physician Kolton Licona HPI: 03/09 23:07 This 46 yrs old Male presents to ER via Ambulatory with complaints of kb Abdominal Pain. 23:07 The patient presents with abdominal pain in the left upper quadrant. Onset: The kb symptoms/episode began/occurred this morning. The symptoms radiate to left back. Associated signs and symptoms: Pertinent positives: nausea, Pertinent negatives: fever. The symptoms are described as constant. Modifying factors: The symptoms are alleviated by nothing, the symptoms are aggravated by nothing. Severity of pain: At its worst the pain was moderate in the emergency department the pain is unchanged. The patient has experienced similar episodes in the past, a few times. The patient has not recently seen a physician. Historical: - Allergies: 13:44 No Known Allergies; hathaway - Home Meds: 13:44 atorvastatin Oral once daily [Active]; fenofibrate 200 mg Oral tab 1 cap once daily hathaway [Active]; metformin 1,000 mg Oral tab 1 tab 2 times per day [Active]; Novolog 100 unit/mL Sub-Q soln [Active]; Tresiba FlexTouch U-100 100 unit/mL (3 mL) subcutaneous inpn 30 unit [Active]; - PMHx: 13:44 Diabetes - NIDDM; fatty liver; Hyperlipidemia; Pancreatitis; hathaway - Immunization history:: Adult Immunizations up to date, Client reports receiving the 2nd dose of the Covid vaccine. - Social history:: Smoking status: Patient denies any tobacco usage or history of. Patient uses Patient/guardian denies using alcohol, street drugs. ROS: 23:07 Constitutional: Negative for fever, chills, and weight loss. kb 23:07 Abdomen/GI: Positive for abdominal pain, nausea. 23:07 All other systems are negative. Exam: 23:07 Constitutional: This is a well developed, well nourished patient who is awake, alert, kb and in no acute distress. Head/Face: Normocephalic, atraumatic. ENT: Moist Mucous membranes Cardiovascular: Regular rate and rhythm with a normal S1 and S2. No gallops, murmurs, or rubs. No pulse deficits. Respiratory: Respirations even and unlabored. No increased work of breathing. Talking in full sentences Skin: Warm, dry with normal turgor. Normal color. MS/ Extremity: Pulses equal, no cyanosis. Neurovascular intact. Full, normal range of motion. Neuro: Awake and alert, GCS 15, oriented to person, place, time, and situation. Moves all extremities. Normal gait. Psych: Awake, alert, with orientation to person, place and time. Behavior, mood, and affect are within normal limits. 23:07 Abdomen/GI: Inspection: abdomen appears normal, Bowel sounds: normal, in all quadrants, Palpation: soft, in all quadrants, moderate abdominal tenderness, in the left upper quadrant. Vital Signs: 13:40 BP 135 / 96; Pulse 83; Resp 17; Temp 98.2; Pulse Ox 99% ; Weight 90.72 kg; Height 5 ft. hathaway 8 in. (172.72 cm); Pain 10/10; 18:39 BP 145 / 82 LA Sitting (auto/reg); Pulse 87; Resp 16 S; Pulse Ox 99% on R/A; mb4 21:08 BP 149 / 86; Pulse 80; Resp 18; Temp 98.3(O); Pulse Ox 97% on R/A; tt3 03/10 02:51 BP 138 / 80; Pulse 82; Resp 17; Pulse Ox 100% on R/A; kd3 04:52 BP 141 / 82; Pulse 92; Resp 18; Pulse Ox 99% on R/A; kd3 06:18 BP 140 / 82; Pulse 62; Resp 17; Pulse Ox 99% on R/A; kd3 / 06:22 BP 132 / 79; Pulse 74; Resp 18 S; Pulse Ox 99% on R/A; as6 12:00 BP 117 / 78; Pulse 80; Resp 15; Pulse Ox 100% ; eo2 14:00 BP 132 / 83; Pulse 71; Resp 17; Pulse Ox 100% ; Pain 7/10; eo2 16:00 BP 119 / 85; Pulse 69; Resp 15; Pulse Ox 99% ; Pain 5/10; eo2 18:00 BP 139 / 89; Pulse 72; Resp 14; Temp 98.8; Pulse Ox 100% ; Pain 6/10; eo2 12/31 13:40 Body Mass Index 30.41 (90.72 kg, 172.72 cm) hathaway MDM: 03/09 20:07 Patient medically screened. kb 23:07 Data reviewed: vital signs, nurses notes. Data interpreted: Pulse oximetry: on room air kb is 97 %. Interpretation: normal. Counseling: I had a detailed discussion with the patient and/or guardian regarding: the historical points, exam findings, and any diagnostic results supporting the discharge/admit diagnosis, lab results, radiology results, the need for further work-up and treatment in the hospital. 03/09 13:59 Order name: Basic Metabolic Panel; Complete Time: 22:21 [facility] 03/09 13:59 Order name: CBC with Diff; Complete Time: 23:45 [facility] 03/09 13:59 Order name: Hepatic Function; Complete Time: 22:21 [facility] 03/09 13:59 Order name: Lipase; Complete Time: 22:21 [facility] 03/09 14:01 Order name: Glucose, Ancillary Testing; Complete Time: 20:07 [facility] 03/09 20:18 Order name: Lipid Profile; Complete Time: 22:06 03/09 21:18 Order name: LDL, Direct; Complete Time: 22:06 [facility] 03/09 22:08 Order name: Ketone, Serum 03/09 22:08 Order name: ABG 03/09 22:09 Order name: Acetone Level; Complete Time: 22:23 [facility] 03/09 22:09 Order name: ABG Arterial Blood Gas [facility] 03/09 22:24 Order name: COVID-19 (Coronavirus) Document "Date of Onset" if Symptomatic 03/09 22:37 Order name: SARS-COV-2 RT PCR; Complete Time: 00:31 EDMS 03/10 05:48 Order name: CBC with Automated Diff EDMS 03/10 06:01 Order name: Comprehensive Metabolic Panel EDMS 03/10 06:01 Order name: Phosphorus EDMS 03/10 06:01 Order name: Triglycerides Level EDMS 03/10 06:01 Order name: T4 Free EDMS 03/10 06:01 Order name: Magnesium EDMS 03/10 06:01 Order name: Amylase EDMS 03/10 06:01 Order name: Lipase EDMS 03/10 06:01 Order name: Thyroid Stimulating Hormone EDMS 03/10 06:13 Order name: LDL, Direct EDMS 03/10 06:31 Order name: Hemoglobin A1c EDMS 03/10 09:33 Order name: Glucose, Ancillary Testing EDMS 03/10 12:28 Order name: Glucose, Ancillary Testing EDMS 03/10 13:43 Order name: Urinalysis EDMS 03/10 16:17 Order name: Glucose, Ancillary Testing EDMS 03/10 20:41 Order name: Glucose, Ancillary Testing EDMS 03/09 13:51 Order name: Glucose Level; Complete Time: 13:51 [place] 03/09 13:59 Order name: IV Saline Lock; Complete Time: 20:52 7 03/09 13:59 Order name: Labs collected and sent; Complete Time: 20:52 7 03/09 21:56 Order name: CT Abd/Pelvis - IV Contrast Only 03/11 05:17 Order name: CBC with Automated Diff EDMS 03/11 05:36 Order name: Comprehensive Metabolic Panel EDMS 03/11 05:36 Order name: Lipid Profile EDMS 03/11 05:36 Order name: Amylase EDMS 03/11 05:36 Order name: Lipase EDMS 03/11 05:46 Order name: LDL, Direct EDMS 03/11 10:14 Order name: Glucose, Ancillary Testing EDMS 03/11 14:27 Order name: Glucose, Ancillary Testing EDMS 03/11 15:04 Order name: Lipase EDMS Administered Medications: 20:51 Drug: NS 0.9% 1000 ml Route: IV; Rate: 1000 ml; Site: left antecubital; [facility] 03/10 02:50 Follow up: IV Status: Completed infusion [facility] 03/09 20:51 Drug: Zofran (Ondansetron) 4 mg Route: IVP; Site: left antecubital; 3 03/10 02:50 Follow up: Response: No adverse reaction [facility] 03/09 20:51 Drug: Dilaudid (HYDROmorphone) 1 mg Route: IVP; Infused Over: 30 mins; Site: left [facility] antecubital; 03/10 02:50 Follow up: Response: No adverse reaction; Pain is decreased [facility] 03/09 23:32 Drug: Dilaudid (HYDROmorphone) 1 mg Route: IVP; Site: left antecubital; [facility] 03/10 02:50 Follow up: Response: No adverse reaction; Pain is decreased kd3 03/09 23:32 Drug: Zofran (Ondansetron) 4 mg Route: IVP; Site: left antecubital; kd3 03/10 02:49 Follow up: Response: No adverse reaction kd3 00:44 Drug: NS 0.9% 1000 ml Route: IV; Rate: 1000 ml; Site: left antecubital; kd3 02:50 Follow up: IV Status: Completed infusion kd3 Disposition: 19:01 Co-signature as Attending Physician, Kolton Licona MD. 7 Disposition Summary: 03/09/21 23:09 Hospitalization Ordered Hospitalization Status: Observation kb Provider: Arpan Mckeon Condition: Stable kb Problem: new kb Symptoms: are unchanged kb Bed/Room Type: Standard kb Location: Telemetry/MedSurg (Inpatient)(03/11/21 19:22) mw Room Assignment: [facility](03/11/21 19:22) mw Diagnosis - Acute pancreatitis without necrosis or infection, unspecified kb Forms: - Medication Reconciliation Form kb - SBAR form kb Signatures: Dispatcher [employer] EDMS Sarah Costa, LOLI-C CARBIDER-Deborah Shine RN ARACELI Kaiden Golden RN RN jl7 Kolton Licona MD MD [facility] Kathryn Harrington RN RN kd3 Alice Vaughan RN ARACELI hathaway Corrections: (The following items were deleted from the chart) 03/09 23:40 23:09 Telemetry/MedSurg (observation) kb mw 23:40 23:09 kb mw 03/11 19:22 03/09 23:40 [facility] ER HOLD mw mw 03/11 19:22 03/09 23:40 ERHOLD- mw mw
[2021-03-09 23:38] LABS: Absolute Lymphocytes (CBC) 0.9 K/uL (0.7-4.9); Hematocrit 38.2 % (39.6-49.0); Lymphocytes % 7.9 % (15.3-44.8); MPV 9.5 fL (7.6-11.3); RBC Red Blood Cell Count 4.75 M/uL (4.33-5.43)
--- NOTE | 2021-03-10 00:43 | P.HP ---
Certification for Inpatient Patient admitted to: Inpatient With expected LOS: >2 Midnights Patient will require the following post-hospital care: None Practitioner: I am a practitioner with admitting privileges, knowledge of patient current condition, hospital course, and medical plan of care. Services: Services provided to patient in accordance with Admission requirements found in Title 42 Section 412.3 of the Code of Federal Regulations <Gregg Cade - Last Filed: 03/10/21 00:38> Patient History Date of Service: 03/09/21 Reason for admission: acute pancreatitis History of Present Illness: Mr. Dada Rutherford is a 46 yo M with history of T2DM and recurrent pancreatitis 2/2 hypertriglyceridemia who presents with one day of 1010 LUQ and epigastric pain radiating to the back. He reports nausea, poor appetite. Denies vomiting. At bedside, he is without pain and asking for ice chips. Glu 300 TG 797 Chol 279 HLD 38 Lipase 3376. Acetone negative. COVID test is positive but he is asymptomatic. 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 - Family History Sister -: Diabetes, Cancer Mother -: Diabetes Brother -: GI disease, Diabetes Notes: Pancreatitis - Social History Alcohol use: No CD- Drugs: No Caffeine use: No <Gregg Cade Tadeo - Last Filed: 03/10/21 00:38> Date of Service: 03/09/21 <Arpan Mckeon - Last Filed: 03/11/21 20:14> Allergies No Known Allergies Allergy (Verified 10/31/19 02:57) Home Medications: Insulin Degludec [Tresiba Flextouch U-200] 30 units SQ BID 11/01/19 Fenofibrate,Micronized [Fenofibrate] 200 mg PO DAILY 03/07/20 Metformin HCl 1,000 mg PO BID 03/07/20 Pantoprazole Sodium [Protonix] 40 mg PO DAILY 03/07/20 clonazePAM [Klonopin*] 0.5 mg PO TID PRN #30 tab 03/09/20 gemfibroziL [Lopid*] 600 mg PO BID #60 tab 03/09/20 Lipase/Protease/Amylase [Sneha Catherine 36,000 Unit Capsule] 1 each PO ACHS #120 capsule. 05/02/20 traMADol HCL [Ultram*] 50 mg PO TID PRN #30 tab 05/02/20 Docosahexanoic AC/Epa [Fish Oil 1,000 MG*] 2,000 mg PO BID #120 cap 07/10/20 Hydrocodone 10/APAP 325 [[place] 10/325] 1 tab PO Q6H PRN #40 tab 07/10/20 Thiamine HCl [Vitamin B-1*] 100 mg PO BID #60 tablet 07/10/20 gemfibroziL [Lopid*] 600 mg PO BID #60 tab 07/10/20 Review of Systems 10-point ROS is otherwise unremarkable Gastrointestinal: Nausea, Abdominal Pain <Gregg Cade - Last Filed: 03/10/21 00:38> Physical Examination - Physical Exam General: Alert, In no apparent distress HEENT: Atraumatic, PERRLA, Mucous membr. moist/pink, EOMI, Sclerae nonicteric Neck: Supple, 2+ carotid pulse no bruit, No LAD, Without JVD or thyroid abnormality Respiratory: Clear to auscultation bilaterally, Normal air movement Cardiovascular: Regular rate/rhythm, Normal S1 S2 Gastrointestinal: Normal bowel sounds, Tenderness Musculoskeletal: No tenderness Integumentary: No rashes Neurological: Normal gait, Normal speech, Normal strength at 5/5 x4 extr, Normal tone, Normal affect Lymphatics: No axilla or inguinal lymphadenopathy - Studies Laboratory Data (last 24 hrs) 03/09/21 22:12: WBC 11.30 H, Hgb 12.6 L, Hct 38.2 L, Plt Count 220 03/09/21 20:35: Triglycerides 797 H, Cholesterol 279 H, LDL Cholesterol Direct 88 L, HDL Cholesterol 38 L, Cholesterol/HDL Ratio 7.34 03/09/21 20:35: Sodium 139, Potassium 3.8, BUN 15, Creatinine 0.89, Glucose 300 H, Total Bilirubin 0.5, AST 19, ALT 39, Alkaline Phosphatase 60, Lipase 3376 H <Gregg Cade S - Last Filed: 03/10/21 00:38> Assessment and Plan - Problems (Diagnosis) (1) Abdominal pain Onset Date: 04/28/14 Current Visit: No Status: Acute Qualifiers: Abdominal location: left upper quadrant Qualified Code(s): R10.12 - Left upper quadrant pain (2) Acute pancreatitis Onset Date: 03/21/14 Current Visit: No Status: Acute Qualifiers: Pancreatitis type: unspecified pancreatitis type Acute pancreatitis complication: no infection or necrosis Qualified Code(s): K85.90 - Acute pancreatitis without necrosis or infection, unspecified (3) Hyperlipidemia Current Visit: No Status: Acute (4) Diabetes mellitus Onset Date: 11/14/16 Current Visit: No Status: Chronic Qualifiers: Diabetes mellitus type: type 2 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 control 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 insulin use status Diabetes mellitus complication status: with hyperglycemia Qualified Code(s): E11.65 - Type 2 diabetes mellitus with hyperglycemia - Plan advance diet as tolerated continue aggressive IV fluid hydration pain management and antiemetics as needed aggressive sliding scale insulin, A1c pending daily lipase, amylase, triglycerides reconcile and continue home medications DVT ppx Discharge Plan: Home Plan to discharge in: 48 Hours - Advance Directives Does patient have a Living Will: No Does patient have a Durable POA for Healthcare: No - Code Status/Comfort Care Code Status Assessed: Yes (full code ) Critical Care: No Time Spent Managing Pts Care (In Minutes): 70 <Gregg Cade S - Last Filed: 03/10/21 00:38> - Problems (Diagnosis) (1) Acute pancreatitis Onset Date: 03/21/14 Current Visit: No Status: Acute Qualifiers: Pancreatitis type: unspecified pancreatitis type Acute pancreatitis complication: no infection or necrosis Qualified Code(s): K85.90 - Acute pancreatitis without necrosis or infection, unspecified (2) hypertriglyceridemia induce pancreatitis Onset Date: 07/08/17 Current Visit: No Status: Acute (3) Diabetes mellitus Onset Date: 11/14/16 Current Visit: No Status: Chronic Qualifiers: Diabetes mellitus type: type 2 Diabetes mellitus alf insulin use: unspecified termite control technician insulin use status Diabetes mellitus complication status: with hyperglycemia Qualified Code(s): E11.65 - Type 2 diabetes mellitus with hyperglycemia <Arpan Mckeon - Last Filed: 03/11/21 20:14> Date of Service: 03/09/21 Subjective Agree with HPI as mentioned above Review of Systems 10-point ROS is otherwise unremarkable Physical Examination - Vital Signs Reviewed - Physical Exam General: Alert, In no apparent distress, Oriented x3 Respiratory: Clear to auscultation bilaterally, Normal air movement Cardiovascular: Regular rate/rhythm, Normal S1 S2 Gastrointestinal: Normal bowel sounds, Soft and benign, Non-distended, No tenderness Musculoskeletal: No clubbing, No swelling, No tenderness Neurological: Sensation intact, Cranial nerves 3-12 intact Assessment & Plan - Problems (Diagnosis) (1) Acute pancreatitis Onset Date: 03/21/14 Current Visit: No Status: Acute Qualifiers: Pancreatitis type: unspecified pancreatitis type Acute pancreatitis complication: no infection or necrosis Qualified Code(s): K85.90 - Acute pancreatitis without necrosis or infection, unspecified (2) hypertriglyceridemia induce pancreatitis Onset Date: 07/08/17 Current Visit: No Status: Acute (3) Diabetes mellitus Onset Date: 11/14/16 Current Visit: No Status: Chronic Qualifiers: Diabetes mellitus type: type 2 Diabetes mellitus alf insulin use: unspecified alf insulin use status Diabetes mellitus complication status: with hyperglycemia Qualified Code(s): E11.65 - Type 2 diabetes mellitus with hyperglycemia - Plan Continue with plan control as mentioned below: 1. Continue with IV hydration 2. Triglycerides elevated 3. Continue with pain control 4. NPO 5. Head Paper Tester regarding dietary intake and refrain from alcohol use 6. Monitor CBC, BMP, LFTs and lipase along with electrolytes. 7. GI and DVT prophylaxis <Arpan Mckeon - Last Filed: 03/11/21 20:14>
[2021-03-10] MEDS ORDERED: NA CHLORIDE 0.9% 1,000 ML ONE ×3 (00:48→22:10)
[2021-03-10] MEDS ORDERED: NA CHLORIDE 0.9% 1,000 ML IV SCH (05:12)
[2021-03-10] MEDS ORDERED: ACETAMINOPHEN 500 MG TAB PO PRN (05:12)
[2021-03-10] MEDS ORDERED: HYDROMORPHONE HCL 0.5 MG/0.5 ML INJ ONE ×3 (05:24→20:39)
[2021-03-10] MEDS: HYDROMORPHONE HCL 0.5 MG/0.5 ML INJ IV PRN ×4 (05:24→21:00)
[2021-03-10 05:42] LABS: Hematocrit 36.5 % (39.6-49.0); Lymphocytes % 10.7 % (15.3-44.8); MPV 9.5 fL (7.6-11.3)
[2021-03-10 05:59] LABS: ALT/SGPT 32 U/L (12-78); AST/SGOT 17 U/L (15-37); Albumin 3.3 g/dL (3.4-5.0); Alkaline Phosphatase 54 U/L (45-117); Amylase 312 U/L (25-115); BUN Blood Urea Nitrogen 13 mg/dL (7-18); Bicarbonate 24 mmol/L (21-32); Bilirubin Total 0.5 mg/dL (0.2-1.0); Glucose Level 275 mg/dL (74-106); Lipase 4455 U/L (73-393); Phosphorus 3.2 mg/dL (2.5-4.9); Protein, Total 7.4 g/dL (6.4-8.2); Sodium Level 141 mmol/L (136-145)
[2021-03-10 06:01] LABS: Thyroid Stimulating Hormone 0.662 uIU/mL (0.360-3.740)
[2021-03-10 06:13] LABS: LDL, Direct 86 mg/dL (100-129)
[2021-03-10] MEDS ORDERED: ENOXAPARIN 40 MG/0.4 ML SQ ONE (10:31)
[2021-03-10] MEDS ORDERED: HYDROMORPHONE HCL 1 MG/ML INJ ONE (10:35)
[2021-03-10] MEDS ORDERED: NPH (HUMAN) 100 UNITS/ML INSULIN SQ ONE (10:39)
[2021-03-10] MEDS ORDERED: INSULIN -REGULAR HUMAN 50 UNIT/0.5 ML ML ONE ×4 (10:41→20:40)
[2021-03-10] MEDS: INSULIN -REGULAR HUMAN 50 UNIT/0.5 ML ML SQ SCH ×4 (10:45→20:50)
[2021-03-10] MEDS: ENOXAPARIN 40 MG/0.4 ML SQ SCH (10:46)
[2021-03-10 13:35] LABS: Urine Appearance CLEAR (Clear); Urine Bilirubin NEGATIVE (Negative); Urine Blood NEGATIVE (Negative); Urine Color YELLOW (Yellow); Urine Glucose 3+ (Negative); Urine Protein NEGATIVE (Negative); Urine Specific Gravity >=1.030 (1.005-1.030); Urine Urobilinogen 0.2 mg/dL (0.2-1.0)
[2021-03-10 13:43] LABS: Urine Microscopic Reflex NO UMIC
[2021-03-10] MEDS: NA CHLORIDE 0.9% 1,000 ML IV SCH ×2 (15:37→22:17)
--- NOTE | 2021-03-10 17:26 | RAD REPORT ---
EXAM DESCRIPTION: CT - Abdomen Pelvis W Contrast - 03/10/2021 6:48 am CLINICAL HISTORY: The patient is 46 years old and is Male; ABD PAIN TECHNIQUE: Axial computed tomography images of the abdomen and pelvis with intravenous contrast. S agittal and coronal reformatted images were created and reviewed. This CT exam was performed using one or more of the following dose reduction techniques: automated exposure control, adjustment of t he mA and/or kV according to patient size, and/or use of iterative reconstruction technique. COMPARIS ON: CT abdomen and pelvis without contrast July 05, 2020. FINDINGS: Lung bases: Unremarkable. No mass. No consolidation. ABDOMEN: Liver: Unremarkable. No mass. Gallbladder and bile ducts: Gallbladder is surgically absent. No ductal dilation. Pancreas: There is peripancreatic fat stranding consistent with pancreatitis predominantly around the pancreatic head and body with a 1.8 cm hypoattenuating focus in the pancreatic tail suggestive o f a pseudocyst. There is a punctate calcification in the pancreatic head similar to prior. No ductal dilation. Spleen: Unremarkable. No splenomegaly. Adrenals: Unremarkable. No mass. Kidneys and ureters: Unremarkable. No solid mass. No hydronephrosis. Stomach and bowel: Scattered sigmoid diverticula. No obstruction. No mucosal thickening. PELVIS: Appendix: No findings to suggest acute appendicitis. Bladder: Unremarkable. No mass. Reproductive: Unremarkable as visualized. ABDOMEN and PELVIS: Intraperitoneal space: Unremarkable. No free air. No significant fluid collection. Bones/joints: No acute fracture. No dislocation. Soft tissues: Unremarkable. Vasculature: Unremarkable. No abdominal aortic aneurysm. Lymph nodes: 1 cm left periaortic lymph node. IMPRESSION: There is peripancreatic fat stranding consistent with pancreatitis predominantly around the pancreatic head and body with a 1.8 cm hypoattenuating focus in the pancreatic tail suggestive of a pseudocyst which appears smaller compared to the prior exam. Electronically signed by: Burt Deutsch MD 03/09/2021 11:42 PM HAND FILER BALANCE WHEEL Due to temporary technical issues with the PACS/Fluency reporting system, reports are being signed by the in house radiologists without review as a courtesy to insure prompt reporting. The interpreting radiologist is fully responsible for the content of the report.
[2021-03-10] MEDS: DOCOSAHEXANOIC AC/EPA 1000 MG PO SCH (20:50)
[2021-03-10] MEDS: gemfibroziL 600 MG TAB PO SCH (20:50)
[2021-03-11] MEDS ORDERED: HYDROMORPHONE HCL 0.5 MG/0.5 ML INJ ONE ×5 (02:43→20:12)
[2021-03-11] MEDS: HYDROMORPHONE HCL 0.5 MG/0.5 ML INJ IV PRN ×5 (02:46→23:46)
[2021-03-11] MEDS: NA CHLORIDE 0.9% 1,000 ML IV SCH ×3 (04:57→18:17)
[2021-03-11 05:15] LABS: Absolute Lymphocytes (CBC) 1.3 K/uL (0.7-4.9); Hematocrit 35.3 % (39.6-49.0); Lymphocytes % 16.8 % (15.3-44.8); MPV 9.3 fL (7.6-11.3); RBC Red Blood Cell Count 4.35 M/uL (4.33-5.43)
[2021-03-11 05:34] LABS: ALT/SGPT 27 U/L (12-78); AST/SGOT 13 U/L (15-37); Alkaline Phosphatase 52 U/L (45-117); Amylase 194 U/L (25-115); BUN Blood Urea Nitrogen 15 mg/dL (7-18); Bicarbonate 22 mmol/L (21-32); Bilirubin Total 0.7 mg/dL (0.2-1.0); Glucose Level 174 mg/dL (74-106); HDL Cholesterol 32 mg/dL (40-60); Lipase 1259 U/L (73-393); Potassium 3.4 mmol/L (3.5-5.1); Protein, Total 7.1 g/dL (6.4-8.2); Sodium Level 140 mmol/L (136-145)
[2021-03-11 05:46] LABS: LDL, Direct 72 mg/dL (100-129)
[2021-03-11] MEDS ORDERED: NA CHLORIDE 0.9% 1,000 ML ONE ×3 (05:46→20:14)
[2021-03-11] MEDS: INSULIN -REGULAR HUMAN 50 UNIT/0.5 ML ML SQ SCH ×4 (07:30→21:00)
[2021-03-11] MEDS ORDERED: ONDANSETRON 4 MG/2 ML VIAL ONE (10:09)
[2021-03-11] MEDS ORDERED: ENOXAPARIN 80 MG/0.8 ML SQ ONE (10:10)
[2021-03-11] MEDS ORDERED: ENOXAPARIN 40 MG/0.4 ML SQ ONE (10:11)
[2021-03-11] MEDS: gemfibroziL 600 MG TAB PO SCH ×2 (10:14→20:26)
[2021-03-11] MEDS: DOCOSAHEXANOIC AC/EPA 1000 MG PO SCH ×2 (10:14→20:26)
[2021-03-11] MEDS: ENOXAPARIN 40 MG/0.4 ML SQ SCH (10:14)
[2021-03-11] MEDS: ONDANSETRON 4 MG/2 ML VIAL IV PRN (10:15)
[2021-03-11] MEDS ORDERED: NACHLORIDE 0.45% 0 ML IV ONE (14:25)
--- NOTE | 2021-03-11 20:12 | P.PN ---
Subjective Date of Service: 03/10/21 Patient's symptoms are improving, but lipase still elevated; keep patient NPO. Triglycerides are stable. Review of Systems 10-point ROS is otherwise unremarkable Physical Examination - Vital Signs Temperature: 98.7 F Blood Pressure: 119/85 Pulse: 69 Respirations: 15 Pulse Ox (%): 99 - Physical Exam General: Alert, In no apparent distress, Oriented x3 Respiratory: Clear to auscultation bilaterally, Normal air movement Cardiovascular: Regular rate/rhythm, Normal S1 S2 Gastrointestinal: Normal bowel sounds, Soft and benign, Non-distended, No tenderness Musculoskeletal: No clubbing, No swelling, No tenderness Neurological: Sensation intact, Cranial nerves 3-12 intact - Studies Medications List Reviewed: Yes Assessment & Plan - Problems (Diagnosis) (1) Acute pancreatitis Onset Date: 03/21/14 Current Visit: No Status: Acute Qualifiers: Pancreatitis type: unspecified pancreatitis type Acute pancreatitis complication: no infection or necrosis Qualified Code(s): K85.90 - Acute pancreatitis without necrosis or infection, unspecified (2) hypertriglyceridemia induce pancreatitis Onset Date: 07/08/17 Current Visit: No Status: Acute (3) Diabetes mellitus Onset Date: 11/14/16 Current Visit: No Status: Chronic Qualifiers: Diabetes mellitus type: type 2 Diabetes mellitus snf insulin use: unspecified snf insulin use status Diabetes mellitus complication status: with hyperglycemia Qualified Code(s): E11.65 - Type 2 diabetes mellitus with hyperglycemia - Plan 1. Continue with IV hydration 2. Repeat triglycerides 3. Continue with pain control 4. NPO 5. Window Glass Cutter Off regarding dietary intake and refrain from alcohol use 6. Monitor CBC, BMP, LFTs and lipase along with electrolytes. 7. GI and DVT prophylaxis Discharge Plan: Home Plan to discharge in: Greater than 2 days - Advance Directives Does patient have a Living Will: No Does patient have a Durable POA for Healthcare: No - Code Status/Comfort Care Code Status Assessed: Yes Code Status: Full Code Critical Care: No Time Spent Managing PTS Care (In Minutes): 35
--- NOTE | 2021-03-11 20:13 | P.PN ---
Date of Service: 03/11/21 Subjective Patient is doing well. Lipase is 1200. Repeat and start clear liquid diet if he is continuing to improve Review of Systems 10-point ROS is otherwise unremarkable Physical Examination - Vital Signs Reviewed - Physical Exam General: Alert, In no apparent distress, Oriented x3 Respiratory: Clear to auscultation bilaterally, Normal air movement Cardiovascular: Regular rate/rhythm, Normal S1 S2 Gastrointestinal: Normal bowel sounds, Soft and benign, Non-distended, No tenderness Musculoskeletal: No clubbing, No swelling, No tenderness Neurological: Sensation intact, Cranial nerves 3-12 intact Assessment & Plan - Problems (Diagnosis) (1) Acute pancreatitis Onset Date: 03/21/14 Current Visit: No Status: Acute Qualifiers: Pancreatitis type: unspecified pancreatitis type Acute pancreatitis complication: no infection or necrosis Qualified Code(s): K85.90 - Acute pancreatitis without necrosis or infection, unspecified (2) hypertriglyceridemia induce pancreatitis Onset Date: 07/08/17 Current Visit: No Status: Acute (3) Diabetes mellitus Onset Date: 11/14/16 Current Visit: No Status: Chronic Qualifiers: Diabetes mellitus type: type 2 Diabetes mellitus jail insulin use: unspecified jail insulin use status Diabetes mellitus complication status: with hyperglycemia Qualified Code(s): E11.65 - Type 2 diabetes mellitu s with hyperglycemia - Plan Continue with plan control as mentioned below: 1. Continue with IV hydration 2. Triglycerides are stable 3. Continue with pain control 4. Start clear liquid diet 5. Rigger Helper regarding dietary intake and refrain from alcohol use 6. Monitor CBC, BMP, LFTs and lipase along with electrolytes. 7. GI and DVT prophylaxis
[2021-03-11 21:19] VITALS: BMI 27.8
[2021-03-12] MEDS: NA CHLORIDE 0.9% 1,000 ML IV SCH ×5 (00:15→21:24)
[2021-03-12] MEDS: HYDROMORPHONE HCL 0.5 MG/0.5 ML INJ IV PRN ×4 (04:43→21:25)
[2021-03-12 05:55] LABS: Absolute Lymphocytes (CBC) 1.3 K/uL (0.7-4.9); Hematocrit 33.4 % (39.6-49.0); Lymphocytes % 27.4 % (15.3-44.8); MPV 8.8 fL (7.6-11.3); RBC Red Blood Cell Count 4.11 M/uL (4.33-5.43)
[2021-03-12 06:54] LABS: Amylase 70 U/L (25-115); Lipase 415 U/L (73-393)
[2021-03-12 06:56] LABS: ALT/SGPT 32 U/L (12-78); AST/SGOT 28 U/L (15-37); Albumin 2.7 g/dL (3.4-5.0); Alkaline Phosphatase 67 U/L (45-117); BUN Blood Urea Nitrogen 14 mg/dL (7-18); Bicarbonate 19 mmol/L (21-32); Bilirubin Total 0.6 mg/dL (0.2-1.0); Glucose Level 128 mg/dL (74-106); Magnesium 1.9 mg/dL (1.8-2.4); Potassium 3.2 mmol/L (3.5-5.1); Protein, Total 6.5 g/dL (6.4-8.2); Sodium Level 138 mmol/L (136-145)
[2021-03-12 07:09] LABS: LDL, Direct 91 mg/dL (100-129)
[2021-03-12] MEDS: INSULIN -REGULAR HUMAN 50 UNIT/0.5 ML ML SQ SCH ×4 (07:30→21:42)
[2021-03-12] MEDS ORDERED: INFLUENZA VACCINE (for 6+ mo) 0.5 ML DOSE IMVAC ONE (08:00)
[2021-03-12] MEDS: gemfibroziL 600 MG TAB PO SCH ×2 (09:34→21:26)
[2021-03-12] MEDS: DOCOSAHEXANOIC AC/EPA 1000 MG PO SCH ×2 (09:34→21:26)
[2021-03-12] MEDS: ENOXAPARIN 40 MG/0.4 ML SQ SCH (09:34)
[2021-03-12] MEDS ORDERED: HYDROCODONE/APAP 7.5/325 MG TAB PO PRN (14:27)
[2021-03-12] MEDS ORDERED: TRAMADOL HCL 50 MG TAB PO PRN (14:27)
--- NOTE | 2021-03-12 14:32 | P.PN ---
Subjective Date of Service: 03/12/21 Chief Complaint: acute pancreatitis Subjective: Improving Physical Examination - Vital Signs Temperature: 97.7 F Blood Pressure: 116/67 Pulse: 67 Respirations: 16 Pulse Ox (%): 99 - Studies Medications List Reviewed: Yes Assessment & Plan Discharge Plan: Home Plan to discharge in: 24 Hours Physician Review Additional Text: COVID: Positive CT scan: FINDINGS: Lung bases: Unremarkable. No mass. No consolidation. ABDOMEN: Liver: Unremarkable. No mass. Gallbladder and bile ducts: Gallbladder is surgically absent. No ductal dilation. Pancreas: There is peripancreatic fat stranding consistent with pancreatitis predominantly around the pancreatic head and body with a 1.8 cm hypoattenuating focus in the pancreatic tail suggestive of a pseudocyst. There is a punctate calcification in the pancreatic head similar to prior. No ductal dilation. Spleen: Unremarkable. No splenomegaly. Adrenals: Unremarkable. No mass. Kidneys and ureters: Unremarkable. No solid mass. No hydronephrosis. Stomach and bowel: Scattered sigmoid diverticula. No obstruction. No mucosal thickening. PELVIS: Appendix: No findings to suggest acute appendicitis. Bladder: Unremarkable. No mass. Reproductive: Unremarkable as visualized. ABDOMEN and PELVIS: Intraperitoneal space: Unremarkable. No free air. No significant fluid collection. Bones/joints: No acute fracture. No dislocation. Soft tissues: Unremarkable. Vasculature: Unremarkable. No abdominal aortic aneurysm. Lymph nodes: 1 cm left periaortic lymph node. IMPRESSION: There is peripancreatic fat stranding consistent with pancreatitis predominantly around the pancreatic head and body with a 1.8 cm hypoattenuating focus in the pancreatic tail suggestive of a pseudocyst which appears smaller compared to the prior exam. Physical Exam: GENERAL: The patient is a well-developed, well-nourished, in no apparent distress. Alert and oriented x3. VITAL SIGNS: Reviewed HEENT: Head is normocephalic and atraumatic. Extraocular muscles are intact. Pupils are equal, round, and reactive to light and accommodation. Nares appeared normal. Mouth is well hydrated and without lesions. Mucous membranes are moist. NECK: Supple. No carotid bruits. No lymphadenopathy or thyromegaly. LUNGS: Clear to auscultation. No crackles or wheezes are heard. HEART: Regular rate and rhythm, no appreciable gallops, rubs, murmurs or extra heart sounds ABDOMEN: Soft, nontender, and nondistended. Positive bowel sounds. No hepatosplenomegaly was noted. EXTREMITIES: Without any cyanosis, clubbing, rash, lesions or peripheral edema. NEUROLOGIC: The patient is oriented to person, place and time. Strength and sensation are grossly intact. Face is symmetric. SKIN: Normal color, turgor and temperature. No ulcerations or rashes noted. Impression: Acute recurrent hypertriglyceridemia pancreatitis with noted 1.8 cm pseudocyst at the tail of the pancreas Diabetes mellitus type 2 insulin-dependent Covid positive, asymptomatic GERD Plan: Acute recurrent hypertriglyceridemia pancreatitis with noted 1.8 cm pseudocyst at the tail of the pancreas: Patient improved. Continue to advance diet. Continue with treatment for hypertriglyceridemia. Will monitor lipase level. Anticipate home likely in the next 24 hours. Diabetes mellitus type 2 insulin-dependent: Continue Accu-Cheks and sliding scale. Covid positive, asymptomatic: Patient asymptomatic. Monitor closely. Patient on room air. GERD: Continue medication Code Status: Full Code DVT prophylaxis: Lovenox Advanced Care Planning-30 minutes: Plan of care for the patient's discharge was discussed in detail with the patient and family. Time Spent Managing Pts Care (In Minutes): 55
[2021-03-12] MEDS: POTASSIUM CL SA 10 MEQ TAB PO ONE ×2 (17:34→18:00)
[2021-03-12] MEDS: ONDANSETRON 4 MG/2 ML VIAL IV PRN (21:26)
[2021-03-13] MEDS: HYDROMORPHONE HCL 0.5 MG/0.5 ML INJ IV PRN ×2 (01:38→06:35)
[2021-03-13 04:07] LABS: ALT/SGPT 30 U/L (12-78); AST/SGOT 19 U/L (15-37); Albumin 2.6 g/dL (3.4-5.0); Alkaline Phosphatase 60 U/L (45-117); BUN Blood Urea Nitrogen 8 mg/dL (7-18); Bicarbonate 25 mmol/L (21-32); Bilirubin Total 0.4 mg/dL (0.2-1.0); Glucose Level 170 mg/dL (74-106); Lipase 347 U/L (73-393); Potassium 3.3 mmol/L (3.5-5.1); Protein, Total 6.3 g/dL (6.4-8.2); Sodium Level 139 mmol/L (136-145)
[2021-03-13] MEDS ORDERED: POTASSIUM CL SA 10 MEQ TAB PO ONE (05:25)
--- NOTE | 2021-03-13 06:09 | P.PN ---
Subjective Date of Service: 03/13/21 Primary Care Provider: Dr. Merrill Chief Complaint: acute pancreatitis Subjective: Improving, Doing well Physical Examination - Vital Signs Temperature: 97.3 F Blood Pressure: 131/79 Pulse: 71 Respirations: 16 Pulse Ox (%): 98 - Studies Medications List Reviewed: Yes Assessment & Plan Discharge Plan: Home Plan to discharge in: 24 Hours Physician Review Additional Text: COVID: Positive CT scan: FINDINGS: Lung bases: Unremarkable. No mass. No consolidation. ABDOMEN: Liver: Unremarkable. No mass. Gallbladder and bile ducts: Gallbladder is surgically absent. No ductal dilation. Pancreas: There is peripancreatic fat stranding consistent with pancreatitis predominantly around the pancreatic head and body with a 1.8 cm hypoattenuating focus in the pancreatic tail suggestive of a pseudocyst. There is a punctate calcification in the pancreatic head similar to prior. No ductal dilation. Spleen: Unremarkable. No splenomegaly. Adrenals: Unremarkable. No mass. Kidneys and ureters: Unremarkable. No solid mass. No hydronephrosis. Stomach and bowel: Scattered sigmoid diverticula. No obstruction. No mucosal thickening. PELVIS: Appendix: No findings to suggest acute appendicitis. Bladder: Unremarkable. No mass. Reproductive: Unremarkable as visualized. ABDOMEN and PELVIS: Intraperitoneal space: Unremarkable. No free air. No significant fluid collection. Bones/joints: No acute fracture. No dislocation. Soft tissues: Unremarkable. Vasculature: Unremarkable. No abdominal aortic aneurysm. Lymph nodes: 1 cm left periaortic lymph node. IMPRESSION: There is peripancreatic fat stranding consistent with pancreatitis predominantly around the pancreatic head and body with a 1.8 cm hypoattenuating focus in the pancreatic tail suggestive of a pseudocyst which appears smaller compared to the prior exam. Physical Exam: GENERAL: The patient is a well-developed, well-nourished, in no apparent distress. Alert and oriented x3. VITAL SIGNS: Reviewed HEENT: Head is normocephalic and atraumatic. Extraocular muscles are intact. Pupils are equal, round, and reactive to light and accommodation. Nares appeared normal. Mouth is well hydrated and without lesions. Mucous membranes are moist. NECK: Supple. No carotid bruits. No lymphadenopathy or thyromegaly. LUNGS: Clear to auscultation. No crackles or wheezes are heard. HEART: Regular rate and rhythm, no appreciable gallops, rubs, murmurs or extra heart sounds ABDOMEN: Soft, nontender, and nondistended. Positive bowel sounds. No hepatosplenomegaly was noted. EXTREMITIES: Without any cyanosis, clubbing, rash, lesions or peripheral edema. NEUROLOGIC: The patient is oriented to person, place and time. Strength and sensation are grossly intact. Face is symmetric. SKIN: Normal color, turgor and temperature. No ulcerations or rashes noted. Impression: Acute recurrent hypertriglyceridemia pancreatitis with noted 1.8 cm pseudocyst at the tail of the pancreas Diabetes mellitus type 2 insulin-dependent Covid positive, asymptomatic GERD Plan: Acute recurrent hypertriglyceridemia pancreatitis with noted 1.8 cm pseudocyst at the tail of the pancreas: Patient doing well. Patient tolerating diet. Lipase back to normal range. We will plan for discharge today. Patient will continue with his treatment for hypertriglyceridemia at discharge. Diabetes mellitus type 2 insulin-dependent: Hemoglobin A1c 11.7. Continue with home medication continue Accu-Cheks and sliding scale. Covid positive, asymptomatic: Patient asymptomatic. Monitor closely. Patient on room air. GERD: Continue medication Code Status: Full Code DVT prophylaxis: Lovenox Advanced Care Planning-30 minutes: Home at discharge Time Spent Managing Pts Care (In Minutes): 55
[2021-03-13] MEDS: NA CHLORIDE 0.9% 1,000 ML IV SCH (06:35)
[2021-03-13] MEDS: INSULIN -REGULAR HUMAN 50 UNIT/0.5 ML ML SQ SCH (08:35)
[2021-03-13] MEDS: ENOXAPARIN 40 MG/0.4 ML SQ SCH (08:36)
[2021-03-13] MEDS: DOCOSAHEXANOIC AC/EPA 1000 MG PO SCH (08:36)
[2021-03-13] MEDS: gemfibroziL 600 MG TAB PO SCH (08:36)
--- NOTE | 2021-03-13 08:47 | P.DS ---
Admission Date: 03/09/21 Discharge Date: 03/13/21 Primary Care Provider: Dr. Merrill Disposition: ROUTINE DISCHARGE Discharge Condition: GOOD Reason for Admission: acute pancreatitis Consultations: none Procedures: COVID: Positive CT scan: FINDINGS: Lung bases: Unremarkable. No mass. No consolidation. ABDOMEN: Liver: Unremarkable. No mass. Gallbladder and bile ducts: Gallbladder is surgically absent. No ductal dilation. Pancreas: There is peripancreatic fat stranding consistent with pancreatitis predominantly around the pancreatic head and body with a 1.8 cm hypoattenuating focus in the pancreatic tail suggestive of a pseudocyst. There is a punctate calcification in the pancreatic head similar to prior. No ductal dilation. Spleen: Unremarkable. No splenomegaly. Adrenals: Unremarkable. No mass. Kidneys and ureters: Unremarkable. No solid mass. No hydronephrosis. Stomach and bowel: Scattered sigmoid diverticula. No obstruction. No mucosal thickening. PELVIS: Appendix: No findings to suggest acute appendicitis. Bladder: Unremarkable. No mass. Reproductive: Unremarkable as visualized. ABDOMEN and PELVIS: Intraperitoneal space: Unremarkable. No free air. No significant fluid collection. Bones/joints: No acute fracture. No dislocation. Soft tissues: Unremarkable. Vasculature: Unremarkable. No abdominal aortic aneurysm. Lymph nodes: 1 cm left periaortic lymph node. IMPRESSION: There is peripancreatic fat stranding consistent with pancreatitis predominantly around the pancreatic head and body with a 1.8 cm hypoattenuating focus in the pancreatic tail suggestive of a pseudocyst which appears smaller compared to the prior exam. Medical Problem List: Acute recurrent hypertriglyceridemia pancreatitis with noted 1.8 cm pseudocyst at the tail of the pancreas Diabetes mellitus type 2 insulin-dependent Covid positive, asymptomatic GERD Brief History of Present Illness: 46 yo male with history of diabetes mellitus type 2, recurrent pancreatitis related to hypertriglyceridemia. Patient presented with increasing abdominal pain to the epigastric region. Patient was found to have recurrent pancreatitis related to hypertriglyceridemia. CT scan revealed pancreatitis with pseudocyst to the pancreatic tail. Patient admitted for treatment. Hospital Course: Patient presented with acute recurrent hypertriglyceridemia pancreatitis. CT scan revealed pancreatitis with 1.8 cm pseudocyst to the tail of the pancreas. Patient required IV fluids and pain medication. His condition improved. Patient without significant abdominal pain at discharge. Patient tolerating diet. At discharge patient will continue with fish oil 2000 mg twice daily, fenofibrate 200 mg daily, and Lopid 600 mg 1 pill twice daily. Recommend to recheck fasting lipid panel and CMP in 4 to 6 weeks to monitor his progress. Education on hypertriglyceridemia and pancreatitis provided. Patient will continue with diabetic diet. Recommend follow-up with PCP in 1 week to follow- up his hospitalization. Recommend follow-up with GI as an outpatient to further monitor his pancreatitis. Patient with diabetes mellitus type 2. Patient insulin-dependent. Hemoglobin A1c 11.7. At discharge patient will continue with his current medication of Tresiba 30 units subcu twice daily. Patient also has NovoLog FlexPen to be used as needed with sliding scale. Recommend to maintain blood sugar less than 140 fasting and less than 200 after meals. Further adjustment can be done by his PCP. Recommend to recheck hemoglobin A1c every 3 months to monitor his progress. Follow-up with PCP in 1 week to follow his care. Patient with GERD. At discharge patient will continue with Protonix 40 mg daily. Recommend follow-up with GI as an outpatient to further address and monitor. Patient was positive for Covid but asymptomatic. Patient on room air. No respiratory symptoms noted. Patient will continue with CDC guidelines on face mask use, social distancing and handwashing. Vital Signs/Physical Exam: Temp Pulse Resp BP Pulse Ox 97.3 F 71 16 131/79 98 03/13/21 08:47 03/13/21 08:47 03/13/21 08:47 03/13/21 08:47 03/13/21 08:47 General: Alert, In no apparent distress, Oriented x3, Cooperative HEENT: Atraumatic Neck: Supple Respiratory: Clear to auscultation bilaterally, Normal air movement Cardiovascular: Normal pulses, Regular rate/rhythm Gastrointestinal: Normal bowel sounds, No tenderness, No masses, No rebound, No guarding Musculoskeletal: No contractures, No erythema, No tenderness, No warmth Integumentary: No tenderness/swelling, No erythema, No warmth, No cyanosis Neurological: Normal speech, Normal strength at 5/5 x4 extr, Normal tone, Normal affect Laboratory Data at Discharge: WBC 4.60 K/uL (4.3-10.9) D 03/12/21 05:34 Hgb 10.9 g/dL (13.6-17.9) L 03/12/21 05:34 Hct 33.4 % (39.6-49.0) L 03/12/21 05:34 Plt Count 205 K/uL (152-406) 03/12/21 05:34 Sodium 139 mmol/L (136-145) 03/13/21 03:20 Potassium 3.3 mmol/L (3.5-5.1) L 03/13/21 03:20 BUN 8 mg/dL (7-18) 03/13/21 03:20 Creatinine 0.69 mg/dL (0.55-1.3) 03/13/21 03:20 Glucose 170 mg/dL (74-106) H 03/13/21 03:20 Phosphorus 3.2 mg/dL (2.5-4.9) 03/10/21 05:23 Magnesium 2.0 mg/dL (1.8-2.4) 03/13/21 03:20 Total Bilirubin 0.4 mg/dL (0.2-1.0) 03/13/21 03:20 AST 19 U/L (15-37) 03/13/21 03:20 ALT 30 U/L (12-78) 03/13/21 03:20 Alkaline Phosphatase 60 U/L (45-117) 03/13/21 03:20 Triglycerides 414 mg/dL (<150) H 03/12/21 05:34 Cholesterol 189 mg/dL (<200) 03/11/21 04:22 LDL Cholesterol Direct 91 mg/dL (100-129) L 03/12/21 05:34 HDL Cholesterol 32 mg/dL (40-60) L 03/11/21 04:22 Cholesterol/HDL Ratio 5.91 03/11/21 04:22 Amylase 70 U/L (25-115) D 03/12/21 05:34 Lipase 347 U/L (73-393) 03/13/21 03:20 Home Medications: Insulin Degludec [Tresiba Flextouch U-200] 30 units SQ BID 11/01/19 Metformin HCl 1,000 mg PO BID 03/07/20 Pantoprazole Sodium [Protonix] 40 mg PO DAILY 03/07/20 Insulin NPH Human Isophane [Novolin N Flexpen] 03/11/21 Docosahexanoic AC/Epa [Fish Oil 1,000 MG*] 2,000 mg PO BID #120 cap 03/13/21 Fenofibrate,Micronized [Fenofibrate] 200 mg PO DAILY #30 03/13/21 gemfibroziL [Lopid*] 600 mg PO BID #60 tab 03/13/21 New Medications: Fenofibrate,Micronized [Fenofibrate] 200 mg PO DAILY #30 Docosahexanoic AC/Epa [Fish Oil 1,000 MG*] 2,000 mg PO BID #120 cap gemfibroziL [Lopid*] 600 mg PO BID #60 tab Physician Discharge Instructions: Patient presented with acute recurrent hypertriglyceridemia pancreatitis. CT scan revealed pancreatitis with 1.8 cm pseudocyst to the tail of the pancreas. Patient required IV fluids and pain medication. His condition improved. Patient without significant abdominal pain at discharge. Patient tolerating diet. At discharge patient will continue with fish oil 2000 mg twice daily, fenofibrate 200 mg daily, and Lopid 600 mg 1 pill twice daily. Recommend to recheck fasting lipid panel and CMP in 4 to 6 weeks to monitor his progress. Education on hypertriglyceridemia and pancreatitis provided. Patient will continue with diabetic diet. Recommend follow-up with PCP in 1 week to follow- up his hospitalization. Recommend follow-up with GI as an outpatient to further monitor his pancreatitis. Patient with diabetes mellitus type 2. Patient insulin-dependent. Hemoglobin A1c 11.7. At discharge patient will continue with his current medication of Tresiba 30 units subcu twice daily. Patient also has NovoLog FlexPen to be used as needed with sliding scale. Recommend to maintain blood sugar less than 140 fasting and less than 200 after meals. Further adjustment can be done by his PCP. Recommend to recheck hemoglobin A1c every 3 months to monitor his progress. Follow-up with PCP in 1 week to follow his care. Patient with GERD. At discharge patient will continue with Protonix 40 mg daily. Recommend follow-up with GI as an outpatient to further address and monitor. Patient was positive for Covid but asymptomatic. Patient on room air. No respiratory symptoms noted. Patient will continue with CDC guidelines on face mask use, social distancing and handwashing. Diet: ADA Activity: Ad stanley Followup: Erwin Merrill DO, DO [Primary Care Provider] - Time spent managing pt's care (in minutes): 55
[2021-03-13] MEDS ORDERED: PANTOPRAZOLE 40MG TABLET PO SCH (09:00)
[2021-03-13 09:29] VITALS: O2SAT 98
[2021-03-13 13:31] VITALS: BP 132/83; TEMP 97.4
== END 2021-03-13 12:23 | disposition home or self-care (01) | DRG 438 ==
LOC: ER 13:03 → ERHOLD 23:03 → 4TH 03-11 20:36
PROVIDERS: ADMIT Hospitalist; ATTEND Family Medicine
DX: K85.90 Acute pancreatitis without necrosis or infection, unspecified (principal); U07.1 COVID-19; K86.3 Pseudocyst of pancreas; E78.1 Pure hyperglyceridemia; K21.9 Gastro-esophageal reflux disease without esophagitis; E11.65 Type 2 diabetes mellitus with hyperglycemia; E78.5 Hyperlipidemia, unspecified; Z79.4 Long term (current) use of insulin; Z79.899 Other long term (current) drug therapy; Z79.84 Long term (current) use of oral hypoglycemic drugs; Z90.49 Acquired absence of other specified parts of digestive tract
CPT/HCPCS: 36415; 74177; 80048; 80053; 80061; 80076; 81003; 82010; 82150; 82805; 82947; 83036; 83690; 83735; 84100; 84132; 84439; 84443; 84478; 85025; 94760; 96361; 96374; 96375; 99285; J1170; J1650; J1815; J2405; J7030; Q9967; U0003

== ENCOUNTER 2021-07-15 13:42 | Emergency (ER) | payer OTHER ==
--- OUTSIDE RECORDS SUMMARY | 2021-07-15 13:45 | XMS REPORT | Continuity of Care Document ---
:1975 Author Organization [facility] t Address [address] [place] [address] Care Team Providers Name Role Phone Shawna Calderon Primary Care Physician Only, Db Test Attending Clinician Unavailable Daly ENNIS Attending Clinician DALY Attending Clinician Unavailable Nurse, Urgent Care Attending Clinician Unavailable Sami CHARLES, T Attending Clinician Unavailable Kahlil MELGAR Attending Clinician KAHLIL Attending Clinician Unavailable Doctor Unassigned, Name Attending Clinician Unavailable Payers Payer Name Policy Type Policy Number Effective Date Expiration Date S ource Problems Condition Condition Condition Status Onset Resolution Last Treating Co mments Source Name Details Category Date Date Treatment Clinician Date Diabetes Diabetes Disease Active 2017-03 NPI:1 83 mellitus mellitus 2-05 [id number] 1 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:00: 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 Hypertrigl Hypertrigl Disease Active 2017-03 N PI:183 yceridemia yceridemia 2-07 20 52118 00:00: 00 Allergies, Adverse Reactions, Alerts Allergy Allergy Status Severity Reaction(s) Onset Inactive Treating Comm ents Source Name Type Date Date Clinician NO KNOWN Drug Active NPI:183 ALLERGIE Class [id number] S Social History Social Habit Start Date Stop Date Quantity Comments Source Exposure to Yes NPI:[id number] 1 SARS-CoV-2 (event) Sex [birth year] NPI:[id number] 00:00:00 00:00:00 Smoking Status Start Date Stop Date Source Never smoker Medications Ordered Filled Start Stop Current Ordering Indication Dosage Frequency Signature Comments Components Source Medication Medication Date Date Medication? Clinician (SIG) Name Name insulin Yes [id number] 30U inject 30 N PI:183 degludec 4-10 Units [id number] (TRESIBA 00:00: under the FLEXTOUCH 00 skin U-200) 200 daily. unit/mL (3 mL) In pioglitazon Yes [id number] 30mg Take 1 NPI:183 e 30 mg 4-10 tablet by [id number] tablet 00:00: mouth 00 daily. insulin Yes [id number] 30U inject 30 N PI:183 degludec 4-10 Units [id number] (TRESIBA 00:00: under the FLEXTOUCH 00 skin U-200) 200 daily. unit/mL (3 mL) In pioglitazon Yes [id number] 30mg Take 1 NPI:183 e 30 mg 4-10 tablet by [id number] tablet 00:00: mouth 00 daily. insulin Yes [id number] 30U inject 30 N PI:183 degludec 4-10 Units [id number] (TRESIBA 00:00: under the FLEXTOUCH 00 skin U-200) 200 daily. unit/mL (3 mL) In pioglitazon Yes [id number] 30mg Take 1 NPI:183 e 30 mg 4-10 tablet by [id number] tablet 00:00: mouth 00 daily. insulin Yes [id number] 30U inject 30 N PI:183 degludec 4-10 Units [id number] (TRESIBA 00:00: under the FLEXTOUCH 00 skin U-200) 200 daily. unit/mL (3 mL) In pioglitazon Yes [id number] 30mg Take 1 NPI:183 e 30 mg 4-10 tablet by [id number] tablet 00:00: mouth 00 daily. insulin Yes [id number] 30U inject 30 N PI:183 degludec 4-10 Units [id number] (TRESIBA 00:00: under the FLEXTOUCH 00 skin U-200) 200 daily. unit/mL (3 mL) In pioglitazon Yes [id number] 30mg Take 1 NPI:183 e 30 mg 4-10 tablet by [id number] tablet 00:00: mouth 00 daily. rosuvastati Yes 20mg Take 1 NPI: 183 n (CRESTOR) 2-06 tablet by [id number] 20 mg 00:00: mouth at tablet 00 bedtime. rosuvastati Yes 20mg Take 1 NPI: 183 n (CRESTOR) 2-06 tablet by [id number] 20 mg 00:00: mouth at tablet 00 bedtime. rosuvastati 0 Yes 20mg Take 1 NPI: 183 n (CRESTOR) 2-06 tablet by 131 8781 20 mg 00:00: mouth at tablet 00 bedtime. rosuvastati 0 Yes 20mg Take 1 NPI: 183 n (CRESTOR) 2-06 tablet by 131 8781 20 mg 00:00: mouth at tablet 00 bedtime. rosuvastati Yes 20mg Take 1 NPI: 183 n (CRESTOR) 2-06 tablet by 131 8781 20 mg 00:00: mouth at tablet 00 bedtime. metFORMIN 2017-03 Yes [id number] 1000mg Take 1 NPI:183 1,000 mg 2-05 tablet by [id number] 1 tablet 00:00: mouth 2 00 (two) times daily with meals. Fenofibrate 2017-03 Yes [id number] 160mg Take 1 NPI:183 160 mg 2-05 tablet by [id number] tablet 00:00: mouth 00 daily. icosapent 2017-03 Yes [id number] 2g Take 2 N PI:183 ethyl 2-05 capsules [id number] (VASCEPA) 1 00:00: by mouth 2 gram 00 (two) capsule times daily with meals. Insulin 2017-03 Yes [id number] Use as NPI: 183 [place], 2-05 directed. [id number] 1 Disposable, 00:00: Once daily (BETSY PEN 00 with NEEDLE) 32 insulin gauge x 5/32" Ndle metFORMIN 2017-03 Yes [id number] 1000mg Take 1 NPI:183 1,000 mg 2-05 tablet by [id number] 1 tablet 00:00: mouth 2 00 (two) times daily with meals. Fenofibrate 2017-03 Yes [id number] 160mg Take 1 NPI:183 160 mg 2-05 tablet by [id number] tablet 00:00: mouth 00 daily. icosapent 2017-03 Yes [id number] 2g Take 2 N PI:183 ethyl 2-05 capsules [id number] (VASCEPA) 1 00:00: by mouth 2 gram 00 (two) capsule times daily with meals. Insulin 2017-03 Yes [id number] Use as NPI: 183 [place], 2-05 directed. [id number] 1 Disposable, 00:00: Once daily (BETSY PEN 00 with NEEDLE) 32 insulin gauge x 5/32" Ndle metFORMIN 2017-03 Yes [id number] 1000mg Take 1 NPI:183 1,000 mg 2-05 tablet by [id number] 1 tablet 00:00: mouth 2 00 (two) times daily with meals. Fenofibrate 2017-03 Yes [id number] 160mg Take 1 NPI:183 160 mg 2-05 tablet by [id number] tablet 00:00: mouth 00 daily. icosapent 2017-03 Yes [id number] 2g Take 2 N PI:183 ethyl 2-05 capsules [id number] (VASCEPA) 1 00:00: by mouth 2 gram 00 (two) capsule times daily with meals. Insulin 2017-03 Yes [id number] Use as NPI: 183 [place], 2-05 directed. [id number] 1 Disposable, 00:00: Once daily (BETSY PEN 00 with NEEDLE) 32 insulin gauge x 5/32" Ndle metFORMIN 2017-03 Yes [id number] 1000mg Take 1 NPI:183 1,000 mg 2-05 tablet by [id number] 1 tablet 00:00: mouth 2 00 (two) times daily with meals. Fenofibrate 2017-03 Yes [id number] 160mg Take 1 NPI:183 160 mg 2-05 tablet by [id number] tablet 00:00: mouth 00 daily. icosapent 2017-03 Yes [id number] 2g Take 2 N PI:183 ethyl 2-05 capsules [id number] (VASCEPA) 1 00:00: by mouth 2 gram 00 (two) capsule times daily with meals. Insulin 2017-03 Yes [id number] Use as NPI: 183 [place], 2-05 directed. [id number] 1 Disposable, 00:00: Once daily (BETSY PEN 00 with NEEDLE) 32 insulin gauge x 5/32" Ndle metFORMIN 2017-03 Yes [id number] 1000mg Take 1 NPI:183 1,000 mg 2-05 tablet by [id number] 1 tablet 00:00: mouth 2 00 (two) times daily with meals. Fenofibrate 2017-03 Yes [id number] 160mg Take 1 NPI:183 160 mg 2-05 tablet by [id number] tablet 00:00: mouth 00 daily. icosapent 2017-03 Yes [id number] 2g Take 2 N PI:183 ethyl 2-05 capsules [id number] (VASCEPA) 1 00:00: by mouth 2 gram 00 (two) capsule times daily with meals. Insulin 2017-03 Yes [id number] Use as NPI: 183 [place], 2-05 directed. [id number] 1 Disposable, 00:00: Once daily (BETSY PEN 00 with NEEDLE) 32 insulin gauge x 5/32" Ndle pantoprazol Yes NPI:18 3 e 20 mg EC 6-03 [id number] tablet 00:00: 00 pantoprazol Yes NPI:18 3 e 20 mg EC 6-03 [id number] tablet 00:00: 00 pantoprazol Yes NPI:18 3 e 20 mg EC 6-03 [id number] tablet 00:00: 00 pantoprazol Yes NPI:18 3 e 20 mg EC 6-03 [id number] tablet 00:00: 00 pantoprazol Yes NPI:18 3 e 20 mg EC 6-03 [id number] tablet 00:00: 00 Procedures Procedure Date / Time Performed Performing Clinician [facility] e ASSIGNMENT OF BENEFITS 2021-03-21 01:17:07 Doctor Unassigned, No Name Encounters Start End Encounter Admission Attending Care Care Encounter Source Date/Time Date/Time Type Type Clinicians Facility Department ID 2021-03-28 2021-03-28 Laboratory Only, Ang Db Test [facility] 1.2.8 40.114 [id number] NPI:183 14:15:00 14:30:00 Only [facility] 350.1.13.10 [id number] [place] 4.2.7.2.686 ANNA?BLEA [id number] [place] [address] MED[facility] OFF[facility] 2021-03-28 2021-03-28 Outpatient R [facility] [id number] -[id number] NPI:183 14:15:00 14:15:00 [id number] 2021-03-28 2021-03-28 Outpatient R DALY [facility] [id number] NPI:183 14:15:00 14:15:00 HETAL [id number] 1 2021-03-28 2021-03-28 Letter Alex Pathak [facility] 1.2.840.114 [id number] NPI:183 00:00:00 00:00:00 (Out) Urgent Care [facility] 350.1.13.10 [id number] [place] 4.2.7.2.686 ANNA?BLEA [id number] [place] [address] MEDICAL OFFICE [facility] 2021-03-23 2021-03-23 Letter AMARILYS Gallardo 1.2.840.114 [id number] NPI:183 00:00:00 00:00:00 (Out) Jana KAUR 350.1.13.10 [id number] [facility] 4.2.7.2.686 [id number] 2021-03-20 2021-03-20 Laboratory Only, Alex Db Norm [facility] 1.2.8 40.114 [id number] NPI:183 19:15:00 19:30:00 Only Kahlil [facility] 350.1.13.10 [id number] [place] 4.2.7.2.686 ANNA?BLEA [id number] [place] [address] MEDICAL OFFICE [facility] 2021-03-20 2021-03-20 Outpatient [facility] [id number] -[id number] NPI:183 19:15:00 19:15:00 [id number] 2021-03-20 2021-03-20 [facility] [id number] NPI:183 19:15:00 19:15:00 BRITTA [id number] 1 2021-03-20 2021-03-20 Orders Doctor PANDA 1.2.840.114 [id number] NPI:183 00:00:00 00:00:00 Only UnassignedVINCENT 350.1.13.10 [id number] [place] [facility] 4.2.7.2.686 [id number] Results This patient has no known results.
--- NOTE | 2021-07-15 15:10 | ER ---
Nurse's Notes [facility] Name: Javier Rutherford Age: 46 yrs Sex: Male : 1975 Arrival Date: 07/15/2021 Time: 13:45 Bed Waiting Private MD: Diagnosis: Presentation: 07/15 14:09 Chief complaint: Patient states: LUQ pain that started this morning, also reports ph nausea, pt found on floor in lobby, c/o severe pain, assisted into wheelchair, dry heaving in triage, reports hx of pancreatitis. Coronavirus screen: Vaccine status: Patient reports receiving the 2nd dose of the covid vaccine. Ebola Screen: No symptoms or risks identified at this time. Initial Sepsis Screen: Does the patient meet any 2 criteria? No. Patient's initial sepsis screen is negative. Does the patient have a suspected source of infection? No. Patient's initial sepsis screen is negative. Risk Assessment: Do you want to hurt yourself or someone else? Patient reports no desire to harm self or others. 14:09 Method Of Arrival: Ambulatory ph 14:09 Acuity: HANY 3 ph Historical: - Allergies: 14:11 No Known Allergies; ph - PMHx: 14:11 Diabetes - NIDDM; fatty liver; Hyperlipidemia; Pancreatitis; ph Assessment: 15:08 Reassessment:. ph Vital Signs: 14:09 BP 165 / 107; Pulse 111; Resp 18; Temp 96.8(TE); Pulse Ox 96% on R/A; Pain 10/10; ph ED Course: 13:45 Patient arrived in ED. rg4 14:00 Bret Dudley PA is PHCP. cp 14:00 Bret Lopez MD is Attending Physician. cp 14:11 Triage completed. ph 14:15 Arm band placed on Patient placed in waiting room, Patient notified of wait time. ph 15:09 Patient Pt seen ambulating out of lobby and left in vehicle w/ family member. ph Administered Medications: No medications were administered Outcome: 15:10 Patient left the ED. ph 15:29 Patient left the ED. Signatures: Vandana Hodgson RN RN Deonna Avendano RN RN ph Bret Dudley PA PA Annie Chacon rg4
[2021-07-15 15:35] VITALS: BP 165/107; TEMP 96.8; O2SAT 96
== END 2021-07-15 15:29 | disposition left against medical advice (07) ==
LOC: ER 13:42
DX: Z53.21 Procedure and treatment not carried out due to patient leaving prior to being seen by health care provider (principal)
CPT/HCPCS: 99281

== ENCOUNTER 2021-10-14 22:02 | Inpatient (IN) | payer OTHER ==
--- OUTSIDE RECORDS SUMMARY | 2021-10-14 22:11 | XMS REPORT | Continuity of Care Document ---
:1975 Author Organization [facility] t Address [address] [place] [address] Care Team Providers Name Role Phone Jaspreet ENNIS, Shawna Randle Primary Care Physician Joann CHARLES, Alla Anderson Attending Clinician VERNON CARLOS Attending Clinician Unavailable Lizabeth MELTONP, Carlos F Attending Clinician Salinas Antonio MD Attending Clinician Vinay MELGAR, Anupam G Attending Clinician Vernon Carlos DO Attending Clinician Only, Alex Db Test Attending Clinician Unavailable Estee Reis Attending Clinician ESTEE KAUFFMAN Attending Clinician Unavailable Nurse, [facility] Attending Clinician Unavailable Sami CHARLES, Jana T Attending Clinician Unavailable Britta Griffin MD Attending Clinician BRITTA GRIFFIN Attending Clinician Unavailable Doctor Unassigned, [place] Attending Clinician Unavailable SALINAS ANTONIO Admitting Clinician Unavailable Sal[place] Antonio MD Admitting Clinician Payers Payer Name Policy Type Policy Number Effective Date Expiration Date S ource Problems Condition Condition Condition Status Onset Resolution Last Treating Co mments Source Name Details Category Date Date Treatment Clinician Date Obesity Obesity Disease Active 2021- Univers (BMI (BMI 5-09 ity of 30-39.9) 30-39.9) 00:00: [place] 00 Medical Branch Acute on Acute on Disease Active Unive rs chronic chronic 5-08 ity of pancreatit pancreatit 00:00: Roly meza is is 00 Medical Branch Diabetes Diabetes Disease Active 2017-03 Unive rs mellitus mellitus 2-05 ity of 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:00: Roly meza with with 00 Medical pancreatic pancreatic Br anch disease disease Hypertrigl Hypertrigl Disease Active 2017-03 U nivers yceridemia yceridemia 2-05 it y of 00:00: [place] 00 [facility] Allergies, Adverse Reactions, Alerts Allergy Allergy Status Severity Reaction(s) Onset Inactive Treating Comm ents Source Name Type Date Date Clinician NO KNOWN Drug Active Univers ALLERGIE Class ity of [facility] Social History Social Habit Start Date Stop Date Quantity Comments Source Exposure to 2021-07-06 2021-07-16 Not sure [facility] SARS-CoV-2 (event) 00:00:00 07:16:00 Medica l [place] Tobacco use and 2017-08-12 2017-08-12 Never used [facility] exposure 00:00:00 00:00:00 [facility] Sex Ass[birth year] [facility] 00:00:00 00:00:00 [facility] Smoking Status Start Date Stop Date Source Never smoker [facility] Medications Ordered Filled Start Stop Current Ordering Indication Dosage Frequency Signature Comments Components Source Medication Medication Date Date Medication? Clinician (SIG) Name Name insulin Yes [id number] 13U inject 13 U nivers degludec 5-14 Units ity of (TRESIBA 00:00: under the [facility] s FLEXTOUCH 00 skin Medical U-200) 200 daily. Branch unit/mL (3 mL) InPn insulin Yes [id number] 1U inject 1 Un belkys lispro, 5-14 Units ity of human, 100 00:00: under the [place] unit/mL 00 skin Medical injection SEE-INSTRU Bran ch CTIONS. rosuvastati Yes [id number] 40mg Take 2 Univers n (CRESTOR) 5-14 tablets by it y of 20 mg 00:00: mouth at [place] tablet 00 bedtime. Medical Branch LOVAZA, Yes [id number] 2g Take 2 Univ ers omega-3-aci 5-14 capsules ity of d ethyl 00:00: [place] esters, 1 00 (two) Medical gram times Branch capsule daily. insulin Yes [id number] 13U inject 13 U nivers degludec 5-14 Units ity of (TRESIBA 00:00: [place] FLEXTOUCH 00 skin Medical U-200) 200 daily. Branch unit/mL (3 mL) InPn insulin Yes [id number] 1U inject 1 [place] lispro, 5-14 Units ity of human, 100 00:00: under the [place] unit/mL 00 skin Medical injection SEE-INSTRU Bran ch CTIONS. rosuvastati Yes [id number] 40mg Take 2 Univers n (CRESTOR) 5-14 tablets by it y of 20 mg 00:00: mouth at [place] tablet 00 bedtime. [facility], Yes [id number] 2g Take 2 Univ ers omega-3-aci 5-14 capsules ity of d ethyl 00:00: [place] 2 [place] esters, 1 00 (two) Medical gram times Branch capsule daily. insulin Yes [id number] 13U inject 13 U nivers degludec 5-14 Units ity of (TRESIBA 00:00: [place] FLEXTOUCH 00 skin Medical U-200) 200 daily. Branch unit/mL (3 mL) In insulin Yes [id number] 1U inject 1 [place] bel[place] lispro, 5-14 Units ity of human, 100 00:00: under the [place] unit/mL 00 skin Medical injection SEE-INSTRU Bran ch CTIONS. rosuvastati Yes [id number] 40mg Take 2 Univers n (CRESTOR) 5-14 tablets by it y of 20 mg 00:00: mouth at [place] tablet 00 bedtime. [facility], Yes [id number] 2g Take 2 Univ ers omega-3-aci 5-14 capsules ity of d ethyl 00:00: [place] mouth 2 [place] esters, 1 00 (two) Medical gram times Branch capsule daily. insulin 2021- No [id number] 1U inject 1 U nivers lispro, 5-14 05-14 Units ity of human, 100 00:00: 00:00 under the [place] unit/mL 00 :00 skin Medical injection SEE-INSTRU Bran ch CTIONS. morpHINE (2 Yes 2mg 2 mg, Slow Univers mg/mL) 07-20 IV Push, ity of injection 2 13:58: Q6HPRN, [place] mg 13 Starting Medical on [facility] Branch 07/20/21 at 0858, Until Discontinu ed, Routine, Pain (scale 7-10), breakthr gh pain KCL 2021- No 40meq 40 mEq, Univers (KLOR-CON 07-20 Oral, ity of M20) tablet 13:15: 14:06 ONCE, 1 [place] 40 mEq 00 :00 dose, On Medical [facility] Branch 07/20/21 at 0815, Routine magnesium 2021- No 4g 4 g, IV Univ ers sulfate in 07-20 Piggyback, it y of water 4 13:15: 14:08 ONCE, 1 [place] gram/50 mL 00 :00 dose, On Medic al (8 %) IV [facility] Branch Piggyback 4 07/20/21 at g 0815, Routine Sliding 2021-0 Yes Subcutaneo Univ ers Scale 5-12 us, TID ity of Insulin - 17:00: MEALS+HS, [place] Lispro 00 First dose Medical (HumaLOG) + (after Branch Fsbg last Testing modificati on) on [facility] 07/19/21 at 1200, Until Discontinu ed, Routine KCL 2021- No 40meq 40 mEq, Univers (KLOR-CON 07-19 Oral, ity of M20) tablet 16:45: 18:07 ONCE, 1 [place] 40 mEq 00 :00 dose, On Medical [facility] Branch 07/19/21 at 1145, Routine insulin 2021-0 Yes 13U 13 Units, Unive rs glargine 07-19 Subcutaneo ity o f (LANTUS 14:30: us, DAILY, [place] U-100) 00 First dose Medical injection (after Branch 13 Units last modificati on) on [facility] 07/19/21 at 0930, Until Discontinu ed, Routine polyethylen Yes 17g 17 g, Unive rs e glycol 5-12 Oral, ity of 3350 powder 14:30: DAILY, [place] 17 g 00 First dose Medical on [place] Branch 07/19/21 at 0930, Until Discontinu ed, Routine HYDROmorpho 2021- No .5mg 0.5 mg, Un belkys ne 07-19 Slow IV ity of (DILAUDID) 14:30: 13:58 Push, [place] injection 00 :29 Q6HPRN, Medical 0.5 mg Starting Branch on [place] 07/19/21 at 0930, Until 07/20/21 at 0858, Routine, Pain (scale 7-10)
U se approved by (Faculty): PAIN SERVICE HYDROcodone Yes 1{tbl} 1 tablet, Univers -acetaminop 5-12 Oral, ity of hen (NORCO) 13:04: Q6HPRN, [place] 10-325 mg 04 Starting Medica l tablet 1 on Fri Branch tablet 07/19/21 at 0804, Until Discontinu ed, Routine, Pain (scale 4-6) icosapent 2021- Yes [id number] 2g Take 2 Univers ethyL 5-12 06-12 capsules ity of (VASCEPA) 1 00:00: 04:59 by mouth 2 [place] gram 00 :00 (two) Medical capsule times Branch daily with meals for 30 days. icosapent 2021- Yes [id number] 2g Take 2 Univers ethyL 5-12 06-12 capsules ity of (VASCEPA) 1 00:00: 04:59 by mouth 2 [place] gram 00 :00 (two) Medical capsule times Branch daily with meals for 30 days. icosapent 2021- Yes [id number] 2g Take 2 Univers ethyL 5-12 06-12 capsules ity of (VASCEPA) 1 00:00: 04:59 by mouth 2 [place] gram 00 :00 (two) Medical capsule times Branch daily with meals for 30 days. KCL 2021- No 40meq 40 mEq, Univers (KLOR-CON 5-11 05-11 Oral, ity of M20) tablet 14:15: 14:15 ONCE, 1 [place] 40 mEq 00 :00 dose, On Medical Fri Branch 07/18/21 at 0915, Routine insulin No 22U 22 Units, Univ ers glargine 07-18 Subcutaneo ity of (LANTUS 14:00: 14:24 us, DAILY, [place] U-100) 00 :20 First dose Medical injection (after Branch 22 Units last modificati on) on Fri07/18/21 at 0900, Until Discontinu ed, Routine ramelteon Yes 8mg 8 mg, Univers (ROZEREM) 07-18 Oral, ity of tablet 8 mg 06:06: QHSPRN, [place] 31 Starting Medical on Fri Branch 07/18/21 at 0106, Until Discontinu ed, Routine, insomnia HYDROmorpho No .5mg 0.5 mg, Un belkys ne 07-18 Slow IV ity of (DILAUDID) 06:03: 14:18 Push, [place] injection 48 :21 Q4HPRN, Medical 0.5 mg Starting Branch on Fri07/18/21 at 0103, Until [place] 07/19/21 at 0918, Routine, Pain (scale 7-10)
U se approved by (Faculty): PAIN SERVICE Sliding Subcutaneo Uni vers Scale 07-1812 us, Q4H, ity of Insulin - 01:00: 00:12 First dose [place] Lispro 00 :57 (after Medical (HumaLOG) + last Branch Fsbg modificati Testing on) on Fri07/17/21 at 2000, Until Discontinu ed, Routine D5W 0.45% No 1000mL at 75 Univ ers NaCl 07-17- mL/hr, ity of (1/2NS) IV 18:49: 05:46 1,000 mL, [place] infusion 55 :28 IV Medical 1,000 mL Infusion, Branch TITRATE, Starting on Fri07/17/21 at 1349, Until Fri07/18/21 at 0046, Routine insulin No 36U 36 Units, Univ ers glargine 07-17 Subcutaneo ity of (LANTUS 14:00: 13:35 us, DAILY, [place] U-100) 00 :27 First dose Medical injection on Branch 36 Units 07/17/21 at 0900, Until Discontinu ed, Routine magnesium No 4g 4 g, IV Univ ers sulfate in 07-17 Piggyback, it y of water 4 13:15: 13:46 ONCE, 1 [place] gram/50 mL 00 :00 dose, On Medic al (8 %) IV Fri Branch Piggyback 4 07/17/21 at g 0815, Routine KCL 2021- No 40meq 40 mEq, Univers (KLOR-CON 07-17 Oral, ity of M20) tablet 13:15: 13:46 ONCE, 1 [place] 40 mEq 00 :00 dose, On Medical Tue Branch 07/17/21 at 0815, Routine Sliding No Subcutaneo Uni vers Scale 07-17 us, Q3H, ity of Insulin - 13:00: 23:17 First dose [place] Lispro 00 :58 (after Medical (HumaLOG) + last Branch Fsbg modificati Testing on) on Fri07/17/21 at 0800, Until Discontinu ed, Routine glucagon Yes 1mg 1 mg, Univers (GLUCAGEN 07-17 Intramuscu ity of DIAGNOSTIC 12:42: lar, PRN, [place] KIT) 15 Starting Medical injection 1 on [place] mg 07/17/21 at 0742, Until Discontinu ed, LENIN, Blood Glucose < or = 70 mg/dL and patient is unable to swallow or has mental changes. dextrose Yes 250mL 250 mL, IV Un belkys 10% (D10W) 5-10 Infusion, ity of bolus 12:42: PRN - SEE [place] infusion 15 INSTRUCTIO Medic al 250 mL NS, BG < Branch 70, Starting on Fri07/17/21 at 0742<br&gt ;Dextrose 10% 250 mL bag contains:& nbsp;10 gm = 100 mL 20 gm = 200 mL 25 gm = 250 mL (whole bag) The maximum rate at which dextrose can be infused without producing glycosuria is 0.5 g/kg/hour. &nbs p;BUD: If wrapper is open bag is good for 30 days at room temperatur e. <b r> rosuvastati Yes 40mg 40 mg, Univ ers n (CRESTOR) 5-10 Oral, QHS, it y of tablet 40 02:00: First dose [place] mg 00 on [facility] Medical 07/16/21 at Branch 2100, Until Discontinu ed, Routine LOVAZA Yes 2g 2 g, Oral, Unive rs (omega-3-ac 5-10 BID, First it y of id ethyl 01:00: dose on [place] esters) 00 Fri07/16/21 Medica l capsule 2 g at 2000, Bran ch Until Discontinu ed, Routine lactated 2021- No 1000mL at 100 Univ ers ringers IV 07-16 05-10 mL/hr, ity of infusion 23:00: 10:59 1,000 mL, [place] 1,000 mL 00 :00 IV Medical Infusion, [place] ONCE, 1 dose, On Fri07/16/21 at 1800, Routine D10W 10 % 2021- No at 50 Univer s IV infusion 07-16 05-10 mL/hr, IV it y of 22:49: 17:50 Infusion, [place] 28 :18 TITRATE, Medical Starting Branch on Fri07/16/21 at 1749, Until Fri07/17/21 at 1250, Routine ondansetron Yes 4mg 4 mg, Slow Univers (ZOFRAN 07-16 IV Push, ity of (PF)) 20:18: Q6HPRN, [place] injection 4 12 Nausea and Me dical mg Vomiting Branch (N/V), Starting on Fri07/16/21 at 1518
Do ses of ondansetro n 16 mg and above need to be administer ed via IV piggyback. For Dose >=24mg ECG monitoring is advisable.
fenofibrate Yes 134mg 134 mg, Un belkys micronized -09 Oral, ity of (LOFIBRA) 17:15: DAILY, [place] capsule 134 00 First dose Me dical mg on Fri Branch 07/16/21 at 1215, Until Discontinu ed, Routine HYDROmorpho 2021- No .5mg 0.5 mg, Un belkys ne 07-16-11 Slow IV ity of (DILAUDID) 15:45: 05:46 Push, [place] injection 14 :53 Q4HPRN, Medical 0.5 mg Starting Branch on Fri07/16/21 at 1045, Until 07/18/21 at 0046, Routine, Pain (scale 7-10)
U se approved by (Faculty): INTENSIVE CARE UNIT sennosides- Yes 1{tbl} 1 tablet, Univers docusate 07-16 Oral, BID, ity o f sodium 15:15: First dose [place] (SENOKOT-S) 00 on Fri Medica l 8.6-50 mg 07/16/21 at Branc h per tablet 1015, 1 tablet Until Discontinu ed, Routine lactated 2021- No 1000mL at 100 Univ ers ringers IV 07-16-09 mL/hr, ity of infusion 15:15: 21:45 1,000 mL, [place] 1,000 mL 00 :11 IV Medical Infusion, Branch CONTINUOUS , Starting on Fri07/16/21 at 1015, Until Fri07/16/21 at 1645, Routine HYDROcodone 2021- No 1{tbl} 1 tablet, Univers -acetaminop 07-16-12 Oral, ity of hen (NORCO 14:11: 13:04 Q6HPRN, [place] 5) 5-325 mg 17 :30 Starting Medi niko tablet 1 on Fri Branch tablet 07/16/21 at 0911, Until [place] 07/19/21 at 0804, Routine, Pain (scale 4-6) enoxaparin Yes 40mg 40 mg, Unive rs (LOVENOX) 07-16 Subcutaneo ity of injection 14:00: us, DAILY, [place] 40 mg 00 First dose Medical on Mon Branch 07/16/21 at 0900, Until Discontinu ed, Routine D10W 10 % 2021- No at 50 Univer s IV infusion 07-16-09 mL/hr, IV it y of 13:55: 22:49 Infusion, [place] 58 :46 TITRATE, Medical Starting Branch on Fri07/16/21 at 0855, Until Fri07/16/21 at 1749, Routine gemfibroziL No 600mg 600 mg, U nivers (LOPID) 07-16-09 Oral, ity of tablet 600 12:30: 17:09 BIDAC, [place] mg 00 :36 First dose Medical on Fri Branch 07/16/21 at 0730, Until Discontinu ed lactated No 1000mL at 200 Univ ers ringers IV 07-16 05-09 mL/hr, ity of infusion 10:30: 15:04 1,000 mL, [place] 1,000 mL 00 :22 IV Medical Infusion, Branch CONTINUOUS , Starting on Fri07/16/21 at 0530, Until Fri07/16/21 at 1004, Routine D5W IV No 1000mL at 100 Univer s infusion 07-16 05-09 mL/hr, IV ity o f 1,000 mL 10:30: 12:56 Infusion, [place] 00 :13 CONTINUOUS Medical , Starting Branch on Fri07/16/21 at 0530, Until Fri07/16/21 at 0756, Routine D5W IV No 1000mL at 50 Univers infusion 07-16 05-09 mL/hr, IV ity o f 1,000 mL 09:15: 10:16 Infusion, [place] 00 :03 CONTINUOUS Medical , Starting Branch on Fri07/16/21 at 0415, Until Fri07/16/21 at 0516, Routine insulin 2021- No .1U/kg/ 0.1 Univer s regular 07-16 05-10 h Units/kg/h ity o f human 04:30: 12:44 r ?90.7 kg [place] (HUMULIN R) 00 :01 (9.07 Medical 100 Units mL/hr), IV Bran ch in NaCl Infusion, 0.9% (NS) CONTINUOUS 100 mL , Starting infusion on Fri07/15/21 at 2330, Until Tu07/17/21 at 0744 lactated 2021- No 1000mL at 250 Univ ers ringers IV 5-09 05-09 mL/hr, ity of infusion 04:30: 10:16 1,000 mL, [place] 1,000 mL 00 :03 IV Medical Infusion, Branch CONTINUOUS , Starting on Fri07/15/21 at 2330, Until 07/16/21 at 0516, Routine dextrose 50 Yes 25mL 25 mL, Univ ers % in water 07-16 Slow IV ity of (D50W) 03:19: Push, PRN [place] injection 28 - SEE Medical 25 mL INSTRUCTIO Branch NS, Starting on Fri07/15/21 at 2219, Until Discontinu ed, Routine, Blood Glucose <= 70 HYDROmorpho 2021- No .5mg 0.5 mg, Un belkys ne 07-16 Slow IV ity of (DILAUDID) 03:18: 14:11 Push, [place] injection 18 :33 Q6HPRN, Medical 0.5 mg Starting Branch on Fri07/15/21 at 2218, Until 07/16/21 at 0911, Routine, Pain (scale 7-10)
U se approved by (Faculty): INTENSIVE CARE UNIT morpHINE (4 2021- No 4mg 4 mg, Slow Univers mg/mL) 07-16 IV Push, ity of injection 4 02:15: 01:01 ONCE, 1 [place] mg 00 :00 dose, On Medical [place] 07/15/21 Branch at 2115, STAT NaCl 0.9% 2021- No 1000mL at 999 Uni vers (NS) bolus 07-15 mL/hr, ity of infusion 23:15: 00:00 1,000 mL, [place] 1,000 mL 00 :00 IV Medical Piggyback, Branch ONCE, 1 dose, On [place] 07/15/21 at 1815, STAT morpHINE (4 2021- No 4mg 4 mg, Slow Univers mg/mL) 07-15 IV Push, ity of injection 4 23:15: 22:19 ONCE, 1 [place] mg 00 :00 dose, On [facility] 07/15/21 Branch at 1815, STAT iopamidol 2021- No [id number] 100mL 100 mL, Univers (ISOVUE 07-15 Intravenou ity o f 370-500 mL) 22:15: 22:15 s, ONCE, 1 [place] injection 00 :00 dose, On Medica l 100 mL 07/15/21 Branch at 1715, Routine maalox:diph No 15mL 15 mL, Uni vers enhydrAMINE 07-15 Oral, ity of :lidocaine 21:45: 20:45 ONCE, 1 [place] 2 % viscous 00 :00 dose, On Medi niko 1:1:1 07/15/21 Branch (FIRST-MOUT at 1645, HWASH BLM) Routine oral suspension 15 mL ketorolac No 30mg 30 mg, Unive rs (TORADOL) 07-15 Slow IV ity of injection 21:30: 20:31 Push, [place] 30 mg 00 :00 ONCE, 1 Medical dose, On Branch 07/15/21 at 1630, Routine
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 : CARLOS BURKS ondansetron No 4mg 4 mg, Slow Univers (ZOFRAN 07-15 IV Push, ity of (PF)) 21:30: 20:31 ONCE, 1 [place] injection 4 00 :00 dose, On Medi niko mg 07/15/21 Branch at 1630, LENIN morpHINE (4 No 4mg 4 mg, Slow Univers mg/mL) 07-15 IV Push, ity of injection 4 21:30: 20:31 ONCE, 1 [place] mg 00 :00 dose, On Medical 07/15/21 Branch at 1630, STAT NaCl 0.9% 2021- No 1000mL at 999 Uni vers (NS) bolus 07-15 mL/hr, ity of infusion 21:30: 22:19 1,000 mL, [place] 1,000 mL 00 :00 IV Medical Infusion, Branch ONCE, 1 dose, On 07/15/21 at 1630, LENIN insulin 2018- Yes [id number] 30U inject 30 U nivers degludec 4-10 Units ity of (TRESIBA 00:00: under the [place] FLEXTOUCH 00 skin Medical U-200) 200 daily. Branch unit/mL (3 mL) InPn pioglitazon Yes [id number] 30mg Take 1 Univers e 30 mg 4-10 tablet by ity of tablet 00:00: mouth [place] 00 daily. Medical Branch insulin Yes [id number] 30U inject 30 U nivers degludec 4-10 Units ity of (TRESIBA 00:00: under the [employer] FLEXTOUCH 00 skin Medical U-200) 200 daily. Branch unit/mL (3 mL) InPn pioglitazon Yes [id number] 30mg Take 1 Univers e 30 mg 4-10 tablet by ity of tablet 00:00: mouth [place] 00 daily. Medical Branch insulin Yes [id number] 30U inject 30 U nivers degludec 4-10 Units ity of (TRESIBA 00:00: under the [email or web address] FLEXTOUCH 00 skin Medical U-200) 200 daily. Branch unit/mL (3 mL) In pioglitazon Yes [id number] 30mg Take 1 Univers e 30 mg 4-10 tablet by ity of tablet 00:00: mouth [place] 00 daily. Medical Branch insulin Yes [id number] 30U inject 30 U nivers degludec 4-10 Units ity of (TRESIBA 00:00: under the [employer] 00 skin Medical U-200) 200 daily. Branch unit/mL (3 mL) InPn pioglitazon Yes [id number] 30mg Take 1 Univers e 30 mg 4-10 tablet by ity of tablet 00:00: mouth [place] 00 daily. Medical Branch insulin Yes [id number] 30U inject 30 U nivers degludec 4-10 Units ity of (TRESIBA 00:00: under the [email or web address] FLEXTOUCH 00 skin Medical U-200) 200 daily. Branch unit/mL (3 mL) InPn pioglitazon Yes [id number] 30mg Take 1 Univers e 30 mg 4-10 tablet by ity of tablet 00:00: mouth [place] 00 daily. Medical Branch insulin 2- No [id number] 30U inject 30 Univers degludec 4-10 05-14 Units ity of (TRESIBA 00:00: 00:00 under the [place] FLEXTOUCH 00 :00 skin Medical U-200) 200 daily. Branch unit/mL (3 mL) InPn pioglitazon 2021- No [id number] 30mg Take 1 Univers e 30 mg 4-10 05-14 tablet by ity of tablet 00:00: 00:00 mouth [place] 00 :00 daily. Medical Branch rosuvastati Yes 20mg Take 1 Univ ers n (CRESTOR) 2-06 tablet by ity of 20 mg 00:00: mouth at [place] tablet 00 bedtime. Medical Branch rosuvastati Yes 20mg Take 1 Univ ers n (CRESTOR) 2-06 tablet by ity of 20 mg 00:00: mouth at [place] tablet 00 bedtime. Medical Branch rosuvastati Yes 20mg Take 1 Univ ers n (CRESTOR) 2-06 tablet by ity of 20 mg 00:00: mouth at [place] tablet 00 bedtime. Medical Branch rosuvastati Yes 20mg Take 1 Univ ers n (CRESTOR) 2-06 tablet by ity of 20 mg 00:00: mouth at [place] tablet 00 bedtime. Medical Branch rosuvastati Yes 20mg Take 1 Univ ers n (CRESTOR) 2-06 tablet by ity of 20 mg 00:00: mouth at [place] tablet 00 bedtime. Medical Branch rosuvastati 2021- No 20mg Take 1 Uni vers n (CRESTOR) 2-06 05-14 tablet by it y of 20 mg 00:00: 00:00 mouth at [place] tablet 00 :00 bedtime. Medical Branch metFORMIN 2017-03 Yes [id number] 1000mg Take 1 Univers 1,000 mg 2-05 tablet by ity of tablet 00:00: mouth 2 [place] 00 (two) Medical times Branch daily with meals. Fenofibrate 2017-03 Yes [id number] 160mg Take 1 Univers 160 mg 2-05 tablet by ity of tablet 00:00: mouth [place] 00 daily. Medical Branch icosapent 2017-03 Yes [id number] 2g Take 2 U nivers ethyl 2-05 capsules ity of (VASCEPA) 1 00:00: by mouth 2 [place] gram 00 (two) Medical capsule times Branch daily with meals. Insulin 2017-03 Yes [id number] Use as Univ ers [place], 2-05 directed. ity of Disposable, 00:00: Once daily [place] (BETSY PEN 00 with Medical NEEDLE) 32 insulin Branch gauge x 5/32" Ndle metFORMIN 2017-03 Yes [id number] 1000mg Take 1 Univers 1,000 mg 2-05 tablet by ity of tablet 00:00: mouth 2 [place] 00 (two) Medical times Branch daily with meals. Fenofibrate 2017-03 Yes [id number] 160mg Take 1 Univers 160 mg 2-05 tablet by ity of tablet 00:00: mouth [place] 00 daily. Medical Branch icosapent 2017-03 Yes [id number] 2g Take 2 U nivers ethyl 2-05 capsules ity of (VASCEPA) 1 00:00: by mouth 2 [place] gram 00 (two) Medical capsule times Branch daily with meals. Insulin 2017-03 Yes [id number] Use as Univ ers [place], 2-05 directed. ity of Disposable, 00:00: Once daily [place] (BETSY PEN 00 with Medical NEEDLE) 32 insulin Branch gauge x 5/32" Ndle Insulin 2017-03 Yes [id number] Use as Univ ers [place], 2-05 directed. ity of Disposable, 00:00: Once daily [place] (BETSY PEN 00 with Medical NEEDLE) 32 insulin Branch gauge x 5/32" Ndle metFORMIN 2017-03 Yes [id number] 1000mg Take 1 Univers 1,000 mg 2-05 tablet by ity of tablet 00:00: mouth 2 [place] 00 (two) Medical times Branch daily with meals. Insulin 2017-03 Yes [id number] Use as Univ ers [place], 2-05 directed. ity of Disposable, 00:00: Once daily [place] (BETSY PEN 00 with Medical NEEDLE) 32 insulin Branch gauge x 5/32" Ndle Fenofibrate 2017-03 Yes [id number] 160mg Take 1 Univers 160 mg 2-05 tablet by ity of tablet 00:00: mouth [place] 00 daily. Medical Branch icosapent 2017-03 Yes [id number] 2g Take 2 U nivers ethyl 2-05 capsules ity of (VASCEPA) 1 00:00: by mouth 2 [place] gram 00 (two) Medical capsule times Branch daily with meals. Insulin 2017-03 Yes [id number] Use as Univ ers [place], 2-05 directed. ity of Disposable, 00:00: Once daily [place] (BETSY PEN 00 with Medical NEEDLE) 32 insulin Branch gauge x 5/32" Ndle metFORMIN 2017-03 Yes [id number] 1000mg Take 1 Univers 1,000 mg 2-05 tablet by ity of tablet 00:00: mouth 2 [place] 00 (two) Medical times Branch daily with meals. Fenofibrate 2017-03 Yes [id number] 160mg Take 1 Univers 160 mg 2-05 tablet by ity of tablet 00:00: mouth [place] 00 daily. Medical Branch icosapent 2017-03 Yes [id number] 2g Take 2 U nivers ethyl 2-05 capsules ity of (VASCEPA) 1 00:00: by mouth 2 [place] gram 00 (two) Medical capsule times Branch daily with meals. Insulin 2017-03 Yes [id number] Use as Univ ers [place], 2-05 directed. ity of Disposable, 00:00: Once daily [place] (BETSY PEN 00 with Medical NEEDLE) 32 insulin Branch gauge x /32" Ndle metFORMIN 2017-03 Yes [id number] 1000mg Take 1 Univers 1,000 mg 2-05 tablet by ity of tablet 00:00: mouth 2 [place] 00 (two) Medical times Branch daily with meals. Fenofibrate 2017-03 Yes [id number] 160mg Take 1 Univers 160 mg 2-05 tablet by ity of tablet 00:00: mouth [place] 00 daily. Medical Branch icosapent 2017-03 Yes [id number] 2g Take 2 U nivers ethyl 2-05 capsules ity of (VASCEPA) 1 00:00: by mouth 2 [place] gram 00 (two) Medical capsule times Branch daily with meals. Insulin 2017-03 Yes [id number] Use as Univ ers [place], 2-05 directed. ity of Disposable, 00:00: Once daily [place] (BETSY PEN 00 with Medical NEEDLE) 32 insulin Branch gauge x 5/32" Ndle Insulin 2017-03 Yes [id number] Use as Univ ers [place], 2-05 directed. ity of Disposable, 00:00: Once daily [place] (BETSY PEN 00 with Medical NEEDLE) 32 insulin Branch gauge x 5/32" Ndle metFORMIN 2017-03- No [id number] 1000mg Take 1 Univers 1,000 mg 2-05 05-14 tablet by ity o f tablet 00:00: 00:00 mouth 2 [place] 00 :00 (two) Medical times Branch daily with meals. Fenofibrate 2017-03- No [id number] 160mg Take 1 Univers 160 mg 2-05 05-14 tablet by ity of tablet 00:00: 00:00 mouth [place] 00 :00 daily. Medical Branch icosapent 2017-03- No [id number] 2g Take 2 Univers ethyl 2 05-12 capsules ity of (VASCEPA) 1 00:00: 00:00 by mouth 2 [place] gram 00 :00 (two) Medical capsule times Branch daily with meals. pantoprazol 2018-0 Yes Univer s e 20 mg EC 6-03 ity of tablet 00:00: [place] 00 [facility] pantoprazol 2018-0 Yes Univer s e 20 mg EC 6-03 ity of tablet 00:00: [address] pantoprazol 2018-0 Yes Univer s e 20 mg EC 6-03 ity of tablet 00:00: [address] pantoprazol 2018-0 Yes Univer s e 20 mg EC 6-03 ity of tablet 00:00: [address] pantoprazol 2018-0 Yes Univer s e 20 mg EC 6-03 ity of tablet 00:00: [address] pantoprazol 2018-0 Yes Univer s e 20 mg EC 6-03 ity of tablet 00:00: [address] pantoprazol 2018-0 Yes Univer s e 20 mg EC 6-03 ity of tablet 00:00: [address] pantoprazol 2018-0 Yes Univer s e 20 mg EC 6-03 ity of tablet 00:00: [address] Vital Signs Vital Name Observation Time Observation Value Comments Source Systolic blood 2021-07-21 17:20:00 111 mm[Hg] Univer sity of pressure [facility] Diastolic blood 2021-07-21 17:20:00 76 mm[Hg] Unive rsity of pressure [facility] Heart rate 2021-07-21 17:20:00 80 /min [facility] Body temperature 2021-07-21 17:20:00 35.94 Andree [facility] rate 2021-07-21 17:20:00 18 /min [facility] Oxygen saturation in 2021-07-21 17:20:00 98 /min [facility] Arterial blood by [facility] Pulse oximetry Branch Body height 2021-07-16 03:00:00 172.7 cm [facility] Body weight 2021-07-16 03:00:00 91.5 kg [facility] BMI 2021-07-16 03:00:00 30.68 kg/m2 [facility] Procedures Procedure Date / Time Performing Clinician Source Performed POCT GLUCOSE 2021-07-21 17:22:00 [place] [facility] (AUTOMATED) Medical Branch POCT GLUCOSE 2021-07-21 14:53:00 Jazmin [facility] (AUTOMATED) Medical Branch POCT GLUCOSE 2021-07-21 13:48:00 Jazmin [facility] (AUTOMATED) Medical Branch MAGNESIUM 2021-07-21 08:55:00 [facility] BASIC METABOLIC PANEL 2021-07-21 08:55:00 [facility] (NA, K, CL, CO2, Medical Branch GLUCOSE, BUN, CREATININE, CA) CBC WITH DIFF 2021-07-21 08:55:00 [facility] 2021-07-21 01:36:00 Jazmin [facility] (AUTOMATED) Medical Branch POCT GLUCOSE 2021-07-20 22:46:00 Jazmin [facility] (AUTOMATED) Medical Branch POCT GLUCOSE 2021-07-20 18:41:00 [facility] POCT GLUCOSE 2021-07-20 13:58:00 Lincoln Antoniozad [facility] (AUTOMATED) Medical [place] US HEAD NECK 2021-07-20 10:06:56 Feli Paez [facility] MAGNESIUM 2021-07-20 09:03:00 [facility]IC METABOLIC PANEL 2021-07-20 09:03:00 [facility] (NA, K, CL, CO2, Medical Branch GLUCOSE, BUN, CREATININE, CA) CBC WITH DIFF 2021-07-20 09:03:00 [facility] POCT GLUCOSE 2021-07-20 04:54:00 Jokhio, [facility] (AUTOMATED) Medical Branch POCT GLUCOSE 2021-07-20 01:49:00 Jazmin [facility] (AUTOMATED) Medical Branch POCT GLUCOSE 2021-07-19 22:40:00 Jazmin [facility] (AUTOMATED) Medical Branch POCT GLUCOSE 2021-07-19 18:55:00 Jazmin [facility] (AUTOMATED) Medical Branch POCT GLUCOSE 2021-07-19 15:08:00 Jazmin [facility] (AUTOMATED) Medical Branch POCT GLUCOSE 2021-07-19 12:52:00 Jazmin [facility] (AUTOMATED) Medical Branch FREE T4 2021-07-19 09:44:00 [facility] 2021-07-19 09:44:00 MikeAz [facility] HORMONE [facility] BASIC METABOLIC PANEL 2021-07-19 09:44:00 Carlos Alberto [facility] (NA, K, CL, CO2, Medical Branch GLUCOSE, BUN, CREATININE, CA) POCT GLUCOSE 2021-07-19 04:53:00 Jazmin [facility] (AUTOMATED) Medical Branch POCT GLUCOSE 2021-07-19 01:50:00 Jazmin [facility] (AUTOMATED) Medical Branch POCT GLUCOSE 2021-07-18 21:56:00 Jazmin [facility] (AUTOMATED) Medical Branch POCT GLUCOSE 2021-07-18 13:36:00 Jazmin [facility] (AUTOMATED) Medical Branch MAGNESIUM 2021-07-18 09:59:00 [facility] MET[facility]OLIC PANEL 2021-07-18 09:59:00 [facility] (NA, K, CL, CO2, Medical Branch GLUCOSE, BUN, CREATININE, CA) LIPID PANEL 2021-07-18 09:59:00 [facility] ([id number])(TOTAL Medical Branch CHOLESTEROL, TRIGLYCERIDES, HDL) POCT GLUCOSE 2021-07-18 09:15:00 Jazmin [facility] (AUTOMATED) Medical Branch POCT GLUCOSE 2021-07-18 05:18:00 Jazmin [facility] (AUTOMATED) Medical Branch POCT GLUCOSE 2021-07-18 00:39:00 [facility] Branch POCT GLUCOSE 2021-07-17 22:31:00 [facility] Branch POCT GLUCOSE 2021-07-17 19:10:00 [facility] POCT GLUCOSE 2021-07-17 17:11:00 [facility] Medical Branch POCT GLUCOSE 2021-07-17 13:47:00 [facility] CBC WITHOUT DIFF 2021-07-17 11:15:00 [facility] MAGN[facility]IUM 2021-07-17 10:51:00 [facility] MET[facility]OLIC PANEL 2021-07-17 10:51:00 [facility] (NA, K, CL, CO2, Medical Branch GLUCOSE, BUN, CREATININE, CA) LIPID PANEL 2021-07-17 10:51:00 [facility] ([id number])(TOTAL Medical Branch CHOLESTEROL, TRIGLYCERIDES, HDL) LOW-DENSITY 2021-07-17 10:51:00 [facility] LIPOPROTEIN, DIRECT Medical Bran ch POCT GLUCOSE 2021-07-17 10:47:00 [facility] ([facility] Branch POCT GLUCOSE 2021-07-17 09:24:00 [facility] Branch POCT GLUCOSE 2021-07-17 07:03:00 [facility] Branch POCT GLUCOSE 2021-07-17 05:53:00 [facility] Medical Branch POCT GLUCOSE 2021-07-17 04:09:00 Ibikunrick [facility] (AUTOMATED) Medical Branch POCT GLUCOSE 2021-07-17 02:12:00 Ibikunrick [facility] (AUTOMATED) Medical Branch POCT GLUCOSE 2021-07-17 01:18:00 Ibikunrick [facility] (AUTOMATED) Medical Branch POCT GLUCOSE 2021-07-17 00:33:00 [facility] Branch POCT GLUCOSE 2021-07-16 23:27:00 [facility] Medical Branch POCT GLUCOSE 2021-07-16 22:28:00 [facility] Medical Branch POCT GLUCOSE 2021-07-16 20:32:00 [facility] Medical Branch LIPID PANEL 2021-07-16 20:25:00 Laura [facility] ([id number])(TOTAL Medical Branch CHOLESTEROL, TRIGLYCERIDES, HDL) LOW-DENSITY 2021-07-16 20:25:00 [facility] LIPOPROTEIN, DIRECT Medical Bran ch POCT GLUCOSE 2021-07-16 19:50:00 Lizabeth [facility] (AUTOMATED) Medical Branch POCT GLUCOSE 2021-07-16 18:26:00 Ibashley [facility] (AUTOMATED) Medical Branch POCT GLUCOSE 2021-07-16 16:50:00 [facility] Medical Branch POCT GLUCOSE 2021-07-16 15:55:00 [facility] Medical Branch POCT GLUCOSE 2021-07-16 14:42:00 [facility] Medical Branch POCT GLUCOSE 2021-07-16 12:35:00 [facility] ([facility] Medical Branch LIPID PANEL 2021-07-16 11:25:00 Vanessa [facility] ([id number])(TOTAL Medical Branch CHOLESTEROL, TRIGLYCERIDES, HDL) LOW-DENSITY 2021-07-16 11:25:00 Vanessa [facility] LIPOPROTEIN, DIRECT Medical Bran ch POCT GLUCOSE 2021-07-16 11:02:00 Ibikunrick, Folusho [facility] (AUTOMATED) Medical Branch POCT GLUCOSE 2021-07-16 10:14:00 Ibikunle, Folusho [facility] (AUTOMATED) Medical Branch POCT GLUCOSE 2021-07-16 09:14:00 Ibikunle, Folusho F [facility] (AUTOMATED) Medical Branch POCT GLUCOSE 2021-07-16 08:00:00 Ibikunle, Folusho F [facility] (AUTOMATED) Medical Branch POCT GLUCOSE 2021-07-16 07:17:00 Ibikunrick, Folusho [facility] (AUTOMATED) Medical Branch POCT GLUCOSE 2021-07-16 06:06:00 Ibikunle, Folusho [facility] (AUTOMATED) Medical Branch POCT GLUCOSE 2021-07-16 05:10:00 Ibikunle, Folusho [facility] (AUTOMATED) Medical Branch POCT GLUCOSE 2021-07-16 04:11:00 Ibikunrick, Folusho [facility] (AUTOMATED) Medical Branch COMP. METABOLIC PANEL 2021-07-16 03:08:00 Vanessa [facility] ([id number]) Medical Branch POCT GLUCOSE 2021-07-16 03:06:00 Ibikunrick Folusho F [facility] (AUTOMATED) Medical Branch CT ABDOMEN PELVIS W 2021-07-15 21:05:34 Lizabeth [facility] CONTRAST Medical Branch XR CHEST 1 VW 2021-07-15 20:33:33 Lizabeth Folusho F [facility] Medical Branch LIPASE 2021-07-15 20:26:00 Ibashley Folusho F [facility] Medical [place] TROPONIN I 2021-07-15 20:26:00 Ibashley [facility] COMP. METABOLIC PANEL 2021-07-15 20:26:00 [id number] LIPID PANEL 2021-07-15 20:26:00 Carlos Burks [facility] ([id number])(TOTAL Medical Branch CHOLESTEROL, TRIGLYCERIDES, HDL) CBC WITH DIFF 2021-07-15 20:26:00 Carlos Burks [facility] GLYCOSYLATED HEMOGLOBIN 2021-07-15 20:26:00 Carlos Burks [facility] (A1C) [facility] PROTHROMBIN TIME / INR 2021-07-15 20:26:00 Carlos [facility] 2021-07-15 20:26:[address] [facility] LACTIC ACID WHOLE BLOOD 2021-07-15 20:26:00 Carlos Burks [facility] LOW-DENSITY 2021-07-15 20:26:00 Carlos Burks [facility] LIPOPROTEIN, DIRECT Medical Bran ch HB ECG ROUTINE & RHYTHM 2021-07-15 19:58:58 Carlos Burks [facility] NOTICE OF PRIVACY 2021-07-15 19:52:26 Doctor Unassigned, No [facility] CONSENT/REFUSAL FOR 2021-07-15 19:52:09 Doctor Unassigned, No Un [facility] DIAGNOSIS AND TREATMENT [facility] HOSPITAL ADMISSION 2021-07-15 05:01:00 Doctor Unassigned, No [facility] ASSIGNMENT OF BENEFITS 2021-03-21 01:17:07 Doctor Unassigned, No [facility] Encounters Start End Encounter Admission Attending Care Care Encounter Source Date/Time Date/Time Type Type Clinicians Facility Department ID 2021-07-23 2021-07-23 Transition STUART David [id number] Univers 00:00:00 00:00:00 of Care Alla ANDERSON [id number] i ty jocelyne [place] [id number] [facility] 403 Branch 2021-07-15 2021-07-21 Inpatient X TERRANCE [facility] [id number] Univers 14:59:00 16:00:00 VERNON ity of [facility] 2021-07-15 2021-07-21 [facility] Carlos Burks 1.2.8 40.114 [id number] Univers 14:59:00 16:00:00 Encounter [place] [id number] ity of [facility] 4.2.7.2.686 [place] Carlos [id number] [facility] 0[address] 2021-07-21 2021-07-21 Telephone Terrance [facility] [id number] Univers 00:00:00 00:00:00 [place] [facility] [id number] it y of [facility] 4.2.7.2.[place] [facility] [id number] Ny dical [address] 2021-03-28 2021-03-28 Laboratory Only, Alex Db Test [facility] 1.2.8 40.114 [id number] Univers 14:15:00 14:30:[address] [facility] 350.1.13.10 ity of [place] 4.2.7.2.686 [place] as ANNA?BLEA [id number] Ny dical KNEY [address] MEDICAL OFFICE BUILDING 2021-03-28 2021-03-28 Outpatient R [facility] [id number] Univers 14:15:00 14:15:00 [id number] ity of [facility] 2021-03-28 2021-03-28 Outpatient R DALY [facility] [id number] Univers 14:15:00 14:15:00 ESTEE ity [facility] 2021-03-28 2021-03-28 Letter Nurse, Alex [facility] [id number] Univers 00:00:00 00:00:00 (Out) Urgent Care HEALTH 350.1.13.10 ity of [place] 4.2.7.2.686 Deni as ANNA?BLEA [id number] [address] MEDICAL OFFICE BUILDING 2021-03-23 2021-03-23 Letter AMARILYS Gallardo [id number] Univers 00:00:00 00:00:00 (Out) Jana Arevalo VINCENT 350.1.13.10 it y of [facility] 4.2.7.2.686 Den[place] as [id number] [address] 2021-03-20 2021-03-20 Laboratory Only, Ang Db Test [facility] 1.2.8 40.114 [id number] Univers 19:15:00 19:30:00 Only Elias [facility] 350.1.13.10 ity of [place] 4.2.7.2.686 [place]i as ANNA?BLEA [id number] [address] MEDICAL OFFICE [facility] 2021-03-20 2021-03-[address] [facility] [id number] Univers 19:15:00 19:15:00 [id number] ity [facility] 2021-03-20 2021-03-20 [id number] Univers 19:15:00 19:15:00 BRITTA ity [facility] 2021-03-20 2021-03-20 Orders Doctor PANDA [id number] Univers 00:00:00 00:00:00 Only Unassigned, VINCENT 350.1.13.10 ity of [place] [facility] 4.2.7.2.686 Deni as [phone] [address] Results Test Description Test Time Test Comments Results Result Comments Source POCT GLUCOSE (AUTOMATED) 2021-07-21 17:24:21 Test Item Value Reference Range Interpretation Comme nts POCT GLU (test code = 8662882517) 232 mg/dL 70-110 H Lab Interpretation (test code = 40386-7) Abnormal [facility] GLUCOSE (AUTOMATED)2021-07-21 14:54:48 Test Item Value Reference Range Interpretation Comments POCT GLU (test code = 2896820949) 172 mg/dL 70-110 H Lab Interpretation (test code = Abnormal 41668-8) [facility] GLUCOSE (AUTOMATED)2021-07-21 13:50:26 Test Item Value Reference Range Interpretation Comments POCT GLU (test code = 2502124242) 165 mg/dL 70-110 H Lab Interpretation (test code = Abnormal 43878-7) [facility] 09[facility]31:03 Test Item Value Reference Range Interpretation Comments MAGNESIUM (test code = 7943291494) 1.9 mg/dL 1.7-2.4 Lab Interpretation (test code = Normal 86025-1) [facility] METABOLIC PANEL (NA, K, CL, CO2, GLUCOSE, BUN, CREATININE, CA)2021-07-21 09:31:03 Test Item Value Reference Range Interpretation Comments NA (test code = 136 mmol/L 135-145 6669504700) K (test code = 3.7 mmol/L 3.5-5.0 9804614773) CL (test code = 107 mmol/L 98-108 2883860684) CO2 TOTAL (test code = 22 mmol/L 23-31 L 2686030619) AGAP (test code = 2-16 2626218409) BUN (test code = 11 mg/dL 7-23 4911320239) GLUCOSE (test code = 168 mg/dL 70-110 H 6448026679) CREATININE (test code = 0.62 mg/dL 0.60-1.25 6272576515) CALCIUM (test code = 9.1 mg/dL 8.6-10.6 0514915977) eGFR (test code = mL/min/1.73m2 7506296717) FRANCES (test code = FRANCES) Association of Glomerular Filtration Rate (GFR) and Staging of Kidney Disease* + --+ --+ ------+| GFR (mL/min/1.73 m2) ?| With Kidney Damage ?| ?Without Kidney Damage+ --------+ --------+ +| ?>90 ?| ?Stage one ?| ? Normal ?+ ---+ ---+ -------+| ?60-89 ?| ?Stage two ?| ? Decreased GFR ? + --+ --+ ------+| ?30-59 ?| ?Stage three ?| ? Stage three ? + --+ --+ ------+| ?15-29 ?| ?Stage four ? | ? Stage four ?+ ---+ ---+ -------+| ?<15 (or dialysis) ? ?| ?Stage five ? | ? Stage five ?+ ---+ ---+ -------+ *Each stage assumes the associated GFR level has been in effect for at least three months. ?Stages 1 to 5, with or without kidney disease, indicate chronic kidney disease. Notes: Determination of stages one and two (with eGFR >59mL/min/1.73 m2) requires estimation of kidney damage for at least three months as defined by structural or functional abnormalities of the kidney, manifested by either:Pathological abnormalities or Markers of kidney damage (including abnormalities in the composition of the blood or urine or abnormalities in imaging tests). Lab Interpretation Abnormal (test code = 70250-6) [facility] WITH [id number] 09:11:21 Test Item Value Reference Range Interpretation Comments WBC (test code = See_Comment [Automated 5001-2) message] The sy stem which generated this result transmitted reference range : 4.20 - 10.70 10*3/?L. The reference range was not used to interpret this result as normal/abnormal . RBC (test code = See_Comment [Automated 879-8) message] The sy stem which generated this result transmitted reference range : 4.26 - 5.52 10*6/?L. The reference range was not used to interpret this result as normal/abnormal . HGB (test code = 12.7 g/dL 12.2-16.4 718-7) HCT (test code = 38.0 % 38.4-49.3 L 4544-3) MCV (test code = 80.3 fL 81.7-95.6 L 787-2) MCH (test code = 26.8 pg 26.1-32.7 785-6) MCHC (test code = 33.4 g/dL 31.2-35.0 786-4) RDW-SD (test code = 36.7 fL 38.5-51.6 L 04437-4) RDW-CV (test code = 12.7 % 12.1-15.4 788-0) PLT (test code = See_Comment [Automated 777-3) message] The sy stem which generated this result transmitted reference range : 150 - 328 10*3/ ?L. The reference r hermila was not used to interpret this result as normal/abnormal . MPV (test code = 10.5 fL 9.8-13.0 29686-4) NRBC/100 WBC (test See_Comment [Automat ed code = 3807553906) message] The system which generated this result transmitted reference range : 0.0 - 10.0 /100 WBCs. The refer ence range was not u sed to interpret th is result as normal/abnormal . NRBC x10^3 (test code <0.01 See_Comment [Auto mated = 6270997663) message] The s ystem which generated this result transmitted reference range : 10*3/?L. The reference range was not used to interpret this result as normal/abnormal . GRAN MAT (NEUT) % 56.1 % (test code = 770-8) IMM GRAN % (test code 1.10 % = 8437642521) LYMPH % (test code = 34.0 % 736-9) MONO % (test code = 5.9 % 5905-5) EOS % (test code = 2.3 % 713-8) BASO % (test code = 0.6 % 706-2) GRAN MAT x10^3(ANC) 2.66 10*3/uL 1.99-6.95 (test code = 7427537427) IMM GRAN x10^3 (test 0.05 10*3/uL 0.00-0.06 code = 4391571817) LYMPH x10^3 (test code 1.61 10*3/uL 1.09-3.23 = 731-0) MONO x10^3 (test code 0.28 10*3/uL 0.36-1.02 L = 742-7) EOS x10^3 (test code = 0.11 10*3/uL 0.06-0.53 711-2) BASO x10^3 (test code 0.03 10*3/uL 0.01-0.09 = 704-7) Lab Interpretation Abnormal (test code = 63803-0) [facility] 01:37:26 Test Item Value Reference Range Interpretation Comments POCT GLU (test code = 1590556249) 280 mg/dL 70-110 H Lab Interpretation (test code = Abnormal 62625-3) [facility] GLUCOSE (AUTOMATED)2021-07-20 22:48:59 Test Item Value Reference Range Interpretation Comments POCT GLU (test code = 1048601930) 258 mg/dL 70-110 H Lab Interpretation (test code = Abnormal 82238-0) [facility] GLUCOSE (AUTOMATED)2021-07-20 18:42:43 Test Item Value Reference Range Interpretation Comments POCT GLU (test code = 4714769361) 151 mg/dL 70-110 H Lab Interpretation (test code = Abnormal 21434-8) [facility] GLUCOSE (AUTOMATED)2021-07-20 14:00:00 Test Item Value Reference Range Interpretation Comments POCT GLU (test code = 5192702837) 112 mg/dL 70-110 H Lab Interpretation (test code = Abnormal 78023-2) [facility] 09:39:15 Test Item Value Reference Range Interpretation Comments MAGNESIUM (test code = 5871655693) 1.6 mg/dL 1.7-2.4 L Lab Interpretation (test code = Abnormal 73591-0) [facility] METABOLIC PANEL (NA, K, CL, CO2, GLUCOSE, BUN, CREATININE, CA)2021-07-20 09:39:15 Test Item Value Reference Range Interpretation Comments NA (test code = 139 mmol/L 135-145 0623100978) K (test code = 3.4 mmol/L 3.5-5.0 L 7340440818) CL (test code = 106 mmol/L 98-108 9601516513) CO2 TOTAL (test code = 22 mmol/L 23-31 L 2156378082) AGAP (test code = 2-16 4466331259) BUN (test code = 10 mg/dL 7-23 7862096733) GLUCOSE (test code = 138 mg/dL 70-110 H 8088945744) CREATININE (test code = 0.63 mg/dL 0.60-1.25 3382650788) CALCIUM (test code = 9.1 mg/dL 8.6-10.6 5142748312) eGFR (test code = mL/min/1.73m2 9027214619) FRANCES (test code = FRANCES) Association of Glomerular Filtration Rate (GFR) and Staging of Kidney Disease* + --+ --+ ------+| GFR (mL/min/1.73 m2) ?| With Kidney Damage ?| ?Without Kidney Damage+ --------+ --------+ +| ?>90 ?| ?Stage one ?| ? Normal ?+ ---+ ---+ -------+| ?60-89 ?| ?Stage two ?| ? Decreased GFR ? + --+ --+ ------+| ?30-59 ?| ?Stage three ?| ? Stage three ? + --+ --+ ------+| ?15-29 ?| ?Stage four ? | ? Stage four ?+ ---+ ---+ -------+| ?<15 (or dialysis) ? ?| ?Stage five ? | ? Stage five ?+ ---+ ---+ -------+ *Each stage assumes the associated GFR level has been in effect for at least three months. ?Stages 1 to 5, with or without kidney disease, indicate chronic kidney disease. Notes: Determination of stages one and two (with eGFR >59mL/min/1.73 m2) requires estimation of kidney damage for at least three months as defined by structural or functional abnormalities of the kidney, manifested by either:Pathological abnormalities or Markers of kidney damage (including abnormalities in the composition of the blood or urine or abnormalities in imaging tests). Lab Interpretation Abnormal (test code = 84852-8) [facility] WITH [id number] 09:11:29 Test Item Value Reference Range Interpretation Comments WBC (test code = See_Comment [Automated 1077-2) message] The sy stem which generated this result transmitted reference range : 4.20 - 10.70 10*3/?L. The reference range was not used to interpret this result as normal/abnormal . RBC (test code = See_Comment [Automated 571-8) message] The sy stem which generated this result transmitted reference range : 4.26 - 5.52 10*6/?L. The reference range was not used to interpret this result as normal/abnormal . HGB (test code = 12.1 g/dL 12.2-16.4 L 718-7) HCT (test code = 36.4 % 38.4-49.3 L 4544-3) MCV (test code = 80.2 fL 81.7-95.6 L 787-2) MCH (test code = 26.7 pg 26.1-32.7 785-6) MCHC (test code = 33.2 g/dL 31.2-35.0 786-4) RDW-SD (test code = 37.7 fL 38.5-51.6 L 09759-2) RDW-CV (test code = 13.0 % 12.1-15.4 788-0) PLT (test code = See_Comment [Automated 777-3) message] The sy stem which generated this result transmitted reference range : 150 - 328 10*3/ ?L. The reference r hermila was not used to interpret this result as normal/abnormal . MPV (test code = 10.5 fL 9.8-13.0 84652-6) NRBC/100 WBC (test See_Comment [Automat ed code = 1417104469) message] The system which generated this result transmitted reference range : 0.0 - 10.0 /100 WBCs. The refer ence range was not u sed to interpret th is result as normal/abnormal . NRBC x10^3 (test code <0.01 See_Comment [Auto mated = 1502417694) message] The s ystem which generated this result transmitted reference range : 10*3/?L. The reference range was not used to interpret this result as normal/abnormal . GRAN MAT (NEUT) % 54.1 % (test code = 770-8) IMM GRAN % (test code 0.70 % = 8190825259) LYMPH % (test code = 34.1 % 736-9) MONO % (test code = 6.9 % 5905-5) EOS % (test code = 3.3 % 713-8) BASO % (test code = 0.9 % 706-2) GRAN MAT x10^3(ANC) 2.44 10*3/uL 1.99-6.95 (test code = 3856687677) IMM GRAN x10^3 (test 0.03 10*3/uL 0.00-0.06 code = 4328872903) LYMPH x10^3 (test code 1.54 10*3/uL 1.09-3.23 = 731-0) MONO x10^3 (test code 0.31 10*3/uL 0.36-1.02 L = 742-7) EOS x10^3 (test code = 0.15 10*3/uL 0.06-0.53 711-2) BASO x10^3 (test code 0.04 10*3/uL 0.01-0.09 = 704-7) Lab Interpretation Abnormal (test code = 61344-0) [facility] GLUCOSE (AUTOMATED)2021-07-20 04:54:43 Test Item Value Reference Range Interpretation Comments POCT GLU (test code = 7702620884) 111 mg/dL 70-110 H Lab Interpretation (test code = Abnormal 04141-2) [facility] GLUCOSE (AUTOMATED)2021-07-20 01:50:04 Test Item Value Reference Range Interpretation Comments POCT GLU (test code = 5651019887) 131 mg/dL 70-110 H Lab Interpretation (test code = Abnormal 55516-9) [facility] GLUCOSE (AUTOMATED)2021-07-19 22:42:23 Test Item Value Reference Range Interpretation Comments POCT GLU (test code = 9792599018) 121 mg/dL 70-110 H Lab Interpretation (test code = Abnormal 03184-2) [facility] GLUCOSE (AUTOMATED)2021-07-19 19:07:01 Test Item Value Reference Range Interpretation Comments POCT GLU (test code = 6208261583) 91 mg/dL 70-110 Lab Interpretation (test code = Normal 57216-8) [facility] GLUCOSE (AUTOMATED)2021-07-19 15:09:49 Test Item Value Reference Range Interpretation Comments POCT GLU (test code = 6088062347) 89 mg/dL 70-110 Lab Interpretation (test code = Normal 05926-3) [facility] METABOLIC PANEL (NA, K, CL, CO2, GLUCOSE, BUN, CREATININE, CA)2021-07-19 14:30:15 Test Item Value Reference Range Interpretation Comments NA (test code = 136 mmol/L 135-145 5417281244) K (test code = 3.3 mmol/L 3.5-5.0 L 3512003272) CL (test code = 107 mmol/L 98-108 1691290586) CO2 TOTAL (test code = 19 mmol/L 23-31 L 4210687611) AGAP (test code = 2-16 8077061359) BUN (test code = 10 mg/dL 7-23 8384342968) GLUCOSE (test code = 92 mg/dL 70-110 9265955874) CREATININE (test code = 0.67 mg/dL 0.60-1.25 0696840574) CALCIUM (test code = 9.0 mg/dL 8.6-10.6 4923675545) eGFR (test code = mL/min/1.73m2 0174664109) FRANCES (test code = FRANCES) Association of Glomerular Filtration Rate (GFR) and Staging of Kidney Disease* + --+ --+ ------+| GFR (mL/min/1.73 m2) ?| With Kidney Damage ?| ?Without Kidney Damage+ --------+ --------+ +| ?>90 ?| ?Stage one ?| ? Normal ?+ ---+ ---+ -------+| ?60-89 ?| ?Stage two ?| ? Decreased GFR ? + --+ --+ ------+| ?30-59 ?| ?Stage three ?| ? Stage three ? + --+ --+ ------+| ?15-29 ?| ?Stage four ? | ? Stage four ?+ ---+ ---+ -------+| ?<15 (or dialysis) ? ?| ?Stage five ? | ? Stage five ?+ ---+ ---+ -------+ *Each stage assumes the associated GFR level has been in effect for at least three months. ?Stages 1 to 5, with or without kidney disease, indicate chronic kidney disease. Notes: Determination of stages one and two (with eGFR >59mL/min/1.73 m2) requires estimation of kidney damage for at least three months as defined by structural or functional abnormalities of the kidney, manifested by either:Pathological abnormalities or Markers of kidney damage (including abnormalities in the composition of the blood or urine or abnormalities in imaging tests). Lab Interpretation Abnormal (test code = 36628-8) [facility] GLUCOSE (AUTOMATED)2021-07-19 12:57:37 Test Item Value Reference Range Interpretation Comments POCT GLU (test code = 2186078785) 93 mg/dL 70-110 Lab Interpretation (test code = Normal 07895-8) [id number] 11:08:12 Test Item Value Reference Range Interpretation Comments TSH (test code = See_Comment Biotin has been 6158429839) reported to cau se a negative bias, interpret resul ts relative to pat ient's use of biotin. [Automated mess age] The system [employer] generated this result transmitted ref erence range: 0.45 - 4 .70 mIU/L. The refe rence range was not u sed to interpret this result as normal/abnor mal. Lab Interpretation (test Normal code = 85473-8) [facility] [id number] 11:05:31 Test Item Value Reference Range Interpretation Comments FREE T4 (test code = See_Comment [Autom ated message] 6631527978) The system [employer] generated this result transmitted ref erence range: 0.78 - 2 .20 ng/dL:. The ref erence range was not u sed to interpret this result as normal/abnor mal. Lab Interpretation (test Normal code = 41038-7) [facility] GLUCOSE (AUTOMATED)2021-07-19 04:53:46 Test Item Value Reference Range Interpretation Comments POCT GLU (test code = 1750108426) 87 mg/dL 70-110 Lab Interpretation (test code = Normal 59767-6) [facility] GLUCOSE (AUTOMATED)2021-07-19 01:50:57 Test Item Value Reference Range Interpretation Comments POCT GLU (test code = 6890860393) 86 mg/dL 70-110 Lab Interpretation (test code = Normal 96393-8) [facility] GLUCOSE (AUTOMATED)2021-07-18 21:57:40 Test Item Value Reference Range Interpretation Comments POCT GLU (test code = 8531895107) 95 mg/dL 70-110 Lab Interpretation (test code = Normal 20553-5) [facility] GLUCOSE (AUTOMATED)2021-07-18 13:44:51 Test Item Value Reference Range Interpretation Comments POCT GLU (test code = 6483636738) 156 mg/dL 70-110 H Lab Interpretation (test code = Abnormal 82920-2) [facility] 11:16:50 Test Item Value Reference Range Interpretation Comments MAGNESIUM (test code = 9454281080) 1.9 mg/dL 1.7-2.4 Lab Interpretation (test code = Normal 05942-2) [facility] ([id number])(TOTAL CHOLESTEROL, TRIGLYCERIDES, HDL)2021-07-18 11:16:50 Test Item Value Reference Range Interpretation Comments CHOL (test code = 250 mg/dL 120-200 H 3238513026) HDL (test code = 34 mg/dL >40 L 9392783080) HDLC RATIO (test code = See_Comment H [Au tomated message] 8590330906) The system [employer] generated this result transmit hue reference range : <=5.0. The refe rence range was not u sed to interpret th is result as normal/abnormal . TRIG (test code = 385 mg/dL 30-170 H 4063306624) LDL CHOL (test code = 139 mg/dL See_Comment [Auto mated message] 11063-3) The system [employer] generated this result transmit hue reference range : <=160. The refe rence range was not u sed to interpret th is result as normal/abnormal . VLDL (test code = 77 mg/dL 5-60 H 7613674987) Lab Interpretation (test Abnormal code = 24852-0) [facility] (NA, K, CL, CO2, GLUCOSE, BUN, CREATININE, CA)2021-07-18 11:16:50 Test Item Value Reference Range Interpretation Comments NA (test code = 136 mmol/L 135-145 5038139991) K (test code = 3.4 mmol/L 3.5-5.0 L 7893243846) CL (test code = 109 mmol/L 98-108 H 9656224585) CO2 TOTAL (test code = 20 mmol/L 23-31 L 6811211651) AGAP (test code = 2-16 4118309843) BUN (test code = 8 mg/dL 7-23 5920403422) GLUCOSE (test code = 173 mg/dL 70-110 H 9818750450) CREATININE (test code = 0.64 mg/dL 0.60-1.25 4493371206) CALCIUM (test code = 8.2 mg/dL 8.6-10.6 L 7394779262) eGFR (test code = mL/min/1.73m2 5753977363) FRANCES (test code = FRANCES) Association of Glomerular Filtration Rate (GFR) and Staging of Kidney Disease* + --+ --+ ------+| GFR (mL/min/1.73 m2) ?| With Kidney Damage ?| ?Without Kidney Damage+ --------+ --------+ +| ?>90 ?| ?Stage one ?| ? Normal ?+ ---+ ---+ -------+| ?60-89 ?| ?Stage two ?| ? Decreased GFR ? + --+ --+ ------+| ?30-59 ?| ?Stage three ?| ? Stage three ? + --+ --+ ------+| ?15-29 ?| ?Stage four ? | ? Stage four ?+ ---+ ---+ -------+| ?<15 (or dialysis) ? ?| ?Stage five ? | ? Stage five ?+ ---+ ---+ -------+ *Each stage assumes the associated GFR level has been in effect for at least three months. ?Stages 1 to 5, with or without kidney disease, indicate chronic kidney disease. Notes: Determination of stages one and two (with eGFR >59mL/min/1.73 m2) requires estimation of kidney damage for at least three months as defined by structural or functional abnormalities of the kidney, manifested by either:Pathological abnormalities or Markers of kidney damage (including abnormalities in the composition of the blood or urine or abnormalities in imaging tests). Lab Interpretation Abnormal (test code = 66494-1) [facility] GLUCOSE (AUTOMATED)2021-07-18 09:16:15 Test Item Value Reference Range Interpretation Comments POCT GLU (test code = 7480703576) 172 mg/dL 70-110 H Lab Interpretation (test code = Abnormal 83503-9) [facility] GLUCOSE (AUTOMATED)2021-07-18 05:19:04 Test Item Value Reference Range Interpretation Comments POCT GLU (test code = 0125428527) 194 mg/dL 70-110 H Lab Interpretation (test code = Abnormal 94542-5) [facility] GLUCOSE (AUTOMATED)2021-07-18 00:48:34 Test Item Value Reference Range Interpretation Comments POCT GLU (test code = 0536899171) 164 mg/dL 70-110 H Lab Interpretation (test code = Abnormal 32552-5) [facility] GLUCOSE (AUTOMATED)2021-07-17 22:35:51 Test Item Value Reference Range Interpretation Comments POCT GLU (test code = 0033791704) 173 mg/dL 70-110 H Lab Interpretation (test code = Abnormal 00074-2) [facility] GLUCOSE (AUTOMATED)2021-07-17 19:21:12 Test Item Value Reference Range Interpretation Comments POCT GLU (test code = 7656289745) 203 mg/dL 70-110 H Lab Interpretation (test code = Abnormal 23374-3) [facility] GLUCOSE (AUTOMATED)2021-07-17 17:22:15 Test Item Value Reference Range Interpretation Comments POCT GLU (test code = 6188796045) 205 mg/dL 70-110 H Lab Interpretation (test code = Abnormal 82710-5) [facility] GLUCOSE (AUTOMATED)2021-07-17 13:58:35 Test Item Value Reference Range Interpretation Comments POCT GLU (test code = 9811547835) 95 mg/dL 70-110 Lab Interpretation (test code = Normal 40082-1) [facility] (11666)(TOTAL CHOLESTEROL, TRIGLYCERIDES, HDL)2021-07-17 12:23:51 Test Item Value Reference Range Interpretation Comments CHOL (test code = 236 mg/dL 120-200 H 8540579947) HDL (test code = 43 mg/dL >40 2840995352) HDLC RATIO (test code = See_Comment H [Au tomated message] 4219027919) The system [employer] generated this result transmitted ref erence range: <=5.0. T he reference range was not used to int erpret this result as normal/abnormal . TRIG (test code = 462 mg/dL 30-170 H 8784251199) LDL CHOL (test code = Unable to calculate 23017-6) LDL due to elev ated triglyceride le charissa greater than 40 0 mg/dL. VLDL (test code = 92 mg/dL 5-60 H 7453745307) Lab Interpretation Abnormal (test code = 87308-0) [facility], [id number] 12:16:24 Test Item Value Reference Range Interpretation Comments dLDL Chol (test code = 72615-6) 53 mg/dL <130 Lab Interpretation (test code = Normal 48589-6) [facility] 11:55:21 Test Item Value Reference Range Interpretation Comments MAGNESIUM (test code = 0215309243) 1.6 mg/dL 1.7-2.4 L Lab Interpretation (test code = Abnormal 15476-5) [facility] METABOLIC PANEL (NA, K, CL, CO2, GLUCOSE, BUN, CREATININE, CA)2021-07-17 11:55:20 Test Item Value Reference Range Interpretation Comments NA (test code = 135 mmol/L 135-145 5202602151) K (test code = 3.3 mmol/L 3.5-5.0 L 6658166229) CL (test code = 106 mmol/L 98-108 1521588298) CO2 TOTAL (test code = 23 mmol/L 23-31 2171859800) AGAP (test code = 2-16 0557416077) BUN (test code = 7 mg/dL 7-23 2078538559) GLUCOSE (test code = 114 mg/dL 70-110 H 3697843045) CREATININE (test code = 0.58 mg/dL 0.60-1.25 L 3491667067) CALCIUM (test code = 8.7 mg/dL 8.6-10.6 1381055968) eGFR (test code = mL/min/1.73m2 5401920230) FRANCES (test code = FRANCES) Association of Glomerular Filtration Rate (GFR) and Staging of Kidney Disease* + --+ --+ ------+| GFR (mL/min/1.73 m2) ?| With Kidney Damage ?| ?Without Kidney Damage+ --------+ --------+ +| ?>90 ?| ?Stage one ?| ? Normal ?+ ---+ ---+ -------+| ?60-89 ?| ?Stage two ?| ? Decreased GFR ? + --+ --+ ------+| ?30-59 ?| ?Stage three ?| ? Stage three ? + --+ --+ ------+| ?15-29 ?| ?Stage four ? | ? Stage four ?+ ---+ ---+ -------+| ?<15 (or dialysis) ? ?| ?Stage five ? | ? Stage five ?+ ---+ ---+ -------+ *Each stage assumes the associated GFR level has been in effect for at least three months. ?Stages 1 to 5, with or without kidney disease, indicate chronic kidney disease. Notes: Determination of stages one and two (with eGFR >59mL/min/1.73 m2) requires estimation of kidney damage for at least three months as defined by structural or functional abnormalities of the kidney, manifested by either:Pathological abnormalities or Markers of kidney damage (including abnormalities in the composition of the blood or urine or abnormalities in imaging tests). Lab Interpretation Abnormal (test code = 62862-4) [facility] [id number] 11:49:58 Test Item Value Reference Range Interpretation Comments WBC (test code = 6690-2) See_Comment [A utomated message] The system [employer] generated this result transmit hue reference range : 4.20 - 10.70 10*3/?L. The reference range was not used to interpret this result as normal/abnormal . RBC (test code = 789-8) See_Comment L [Au tomated message] The system [employer] generated this result transmit hue reference range : 4.26 - 5.52 10* 6/?L. The reference r hermila was not used to interpret this result as normal/abnormal . HGB (test code = 718-7) 11.2 g/dL 12.2-16.4 L HCT (test code = 4544-3) 34.1 % 38.4-49.3 L MCH (test code = 785-6) 26.7 pg 26.1-32.7 MCV (test code = 787-2) 81.4 fL 81.7-95.6 L MCHC (test code = 786-4) 32.8 g/dL 31.2-35.0 PLT (test code = 777-3) See_Comment [Au tomated message] The system [employer] generated this result transmit hue reference range : 150 - 328 10*3/?L. The reference range was not used to interpret this result as normal/abnormal . MPV (test code = 11.7 fL 9.8-13.0 36864-5) RDW-CV (test code = 13.5 % 12.1-15.4 788-0) RDW-SD (test code = 39.3 fL 38.5-51.6 94420-3) NRBC x10^3 (test code = <0.01 See_Comment [Au tomated message] 3649098710) The system [employer] generated this result transmit hue reference range : 10*3/?L. The reference range was not used to interpret this result as normal/abnormal . NRBC/100 WBC (test code See_Comment [Au tomated message] = 3057708171) The system [employer] generated this result transmit hue reference range : 0.0 - 10.0 /100 WBC s. The reference r hermila was not used to interpret this result as normal/abnormal . IPF % (test code = 5811133519) Lab Interpretation (test Abnormal code = 81492-5) [facility] GLUCOSE (AUTOMATED)2021-07-17 10:55:13 Test Item Value Reference Range Interpretation Comments POCT GLU (test code = 4281538054) 120 mg/dL 70-110 H Lab Interpretation (test code = Abnormal 15470-5) [facility] GLUCOSE (AUTOMATED)2021-07-17 09:35:01 Test Item Value Reference Range Interpretation Comments POCT GLU (test code = 3304023387) 114 mg/dL 70-110 H Lab Interpretation (test code = Abnormal 75208-2) [facility] GLUCOSE (AUTOMATED)2021-07-17 07:04:08 Test Item Value Reference Range Interpretation Comments POCT GLU (test code = 0695621824) 125 mg/dL 70-110 H Lab Interpretation (test code = Abnormal 85341-1) [facility] GLUCOSE (AUTOMATED)2021-07-17 05:55:00 Test Item Value Reference Range Interpretation Comments POCT GLU (test code = 1826566075) 132 mg/dL 70-110 H Lab Interpretation (test code = Abnormal 30213-6) [facility] GLUCOSE (AUTOMATED)2021-07-17 04:15:16 Test Item Value Reference Range Interpretation Comments POCT GLU (test code = 1880836109) 167 mg/dL 70-110 H Lab Interpretation (test code = Abnormal 59859-0) [facility] GLUCOSE (AUTOMATED)2021-07-17 02:14:09 Test Item Value Reference Range Interpretation Comments POCT GLU (test code = 5177224440) 137 mg/dL 70-110 H Lab Interpretation (test code = Abnormal 01254-9) [facility] GLUCOSE (AUTOMATED)2021-07-17 01:19:32 Test Item Value Reference Range Interpretation Comments POCT GLU (test code = 6151818424) 132 mg/dL 70-110 H Lab Interpretation (test code = Abnormal 30109-4) [facility] GLUCOSE (AUTOMATED)2021-07-17 00:35:21 Test Item Value Reference Range Interpretation Comments POCT GLU (test code = 6353250014) 146 mg/dL 70-110 H Lab Interpretation (test code = Abnormal 77699-9) [facility] GLUCOSE (AUTOMATED)2021-07-16 23:29:07 Test Item Value Reference Range Interpretation Comments POCT GLU (test code = 4181416892) 143 mg/dL 70-110 H Lab Interpretation (test code = Abnormal 29913-0) [facility] GLUCOSE (AUTOMATED)2021-07-16 22:29:57 Test Item Value Reference Range Interpretation Comments POCT GLU (test code = 4502439094) 140 mg/dL 70-110 H Lab Interpretation (test code = Abnormal 25786-9) [facility], [id number] 22:27:31 Test Item Value Reference Range Interpretation Comments dLDL Chol (test code = 20165-6) 39 mg/dL <130 Lab Interpretation (test code = Normal 53590-1) [facility] (20015)(TOTAL CHOLESTEROL, TRIGLYCERIDES, HDL)2021-07-16 22:11:40 Test Item Value Reference Range Interpretation Comments CHOL (test code = 293 mg/dL 120-200 H 6321337597) HDL (test code = 41 mg/dL >40 4604584666) HDLC RATIO (test code = See_Comment H [Au tomated message] 9448485030) The system [employer] generated this result transmitted ref erence range: <=5.0. T he reference range was not used to int erpret this result as normal/abnormal . TRIG (test code = 917 mg/dL 30-170 H 9918634083) LDL CHOL (test code = Unable to calculate 00850-7) LDL due to elev ated triglyceride le charissa greater than 40 0 mg/dL. VLDL (test code = Unable to calculate 0922224778) VLDL due to linda vated triglyceride le charissa greater than 71 0 mg/dL. Lab Interpretation Abnormal (test code = 99398-8) [facility] GLUCOSE (AUTOMATED)2021-07-16 20:33:46 Test Item Value Reference Range Interpretation Comments POCT GLU (test code = 7205835476) 126 mg/dL 70-110 H Lab Interpretation (test code = Abnormal 02149-7) [facility] GLUCOSE (AUTOMATED)2021-07-16 19:51:56 Test Item Value Reference Range Interpretation Comments POCT GLU (test code = 5030324050) 121 mg/dL 70-110 H Lab Interpretation (test code = Abnormal 49588-4) [facility] GLUCOSE (AUTOMATED)2021-07-16 18:27:45 Test Item Value Reference Range Interpretation Comments POCT GLU (test code = 8799833122) 111 mg/dL 70-110 H Lab Interpretation (test code = Abnormal 66347-6) [facility] GLUCOSE (AUTOMATED)2021-07-16 16:54:40 Test Item Value Reference Range Interpretation Comments POCT GLU (test code = 0692548109) 108 mg/dL 70-110 Lab Interpretation (test code = Normal 62331-7) [facility] GLUCOSE (AUTOMATED)2021-07-16 15:56:26 Test Item Value Reference Range Interpretation Comments POCT GLU (test code = 3712323549) 96 mg/dL 70-110 Lab Interpretation (test code = Normal 57410-1) [facility] GLUCOSE (AUTOMATED)2021-07-16 14:42:32 Test Item Value Reference Range Interpretation Comments POCT GLU (test code = 9994640543) 95 mg/dL 70-110 Lab Interpretation (test code = Normal 28020-0) [facility], [id number] 13:30:57 Test Item Value Reference Range Interpretation Comments dLDL Chol (test code = <30 See_Comment [Aut omated message] 58292-7) The system [employer] generated this result transmitted ref erence range: <130 mg/ dL. The reference range was not used to int erpret this result as normal/abnormal . Lab Interpretation (test Normal code = 52809-3) [facility] (47974)(TOTAL CHOLESTEROL, TRIGLYCERIDES, HDL)2021-07-16 13:13:10 Test Item Value Reference Range Interpretation Comments CHOL (test code = 290 mg/dL 120-200 H 5255356121) HDL (test code = 38 mg/dL >40 L 4263904360) HDLC RATIO (test code = See_Comment H [Au tomated message] 8104216650) The system [employer] generated this result transmit hue reference range : <=5.0. The refe rence range was not u sed to interpret th is result as normal/abnormal . TRIG (test code = 1574 mg/dL 30-170 H 8372115174) LDL CHOL (test code = Unable to calculate 67297-0) LDL due to elev ated triglyceride le charissa greater than 40 0 mg/dL. VLDL (test code = Unable to calculate 4095883515) VLDL due to linda vated triglyceride le charissa greater than 71 0 mg/dL. Lab Interpretation Abnormal (test code = 24229-0) [facility] GLUCOSE (AUTOMATED)2021-07-16 12:37:02 Test Item Value Reference Range Interpretation Comments POCT GLU (test code = 8136115720) 113 mg/dL 70-110 H Lab Interpretation (test code = Abnormal 79400-8) [facility] GLUCOSE (AUTOMATED)2021-07-16 11:09:12 Test Item Value Reference Range Interpretation Comments POCT GLU (test code = 6354980353) 95 mg/dL 70-110 Lab Interpretation (test code = Normal 57825-9) [facility] GLUCOSE (AUTOMATED)2021-07-16 10:23:24 Test Item Value Reference Range Interpretation Comments POCT GLU (test code = 3226237607) 89 mg/dL 70-110 Lab Interpretation (test code = Normal 73646-6) [facility] GLUCOSE (AUTOMATED)2021-07-16 09:23:50 Test Item Value Reference Range Interpretation Comments POCT GLU (test code = 2339854278) 115 mg/dL 70-110 H Lab Interpretation (test code = Abnormal 80780-8) [facility] GLUCOSE (AUTOMATED)2021-07-16 08:10:47 Test Item Value Reference Range Interpretation Comments POCT GLU (test code = 8733962243) 131 mg/dL 70-110 H Lab Interpretation (test code = Abnormal 54586-4) [facility] GLUCOSE (AUTOMATED)2021-07-16 07:27:49 Test Item Value Reference Range Interpretation Comments POCT GLU (test code = 5178444686) 141 mg/dL 70-110 H Lab Interpretation (test code = Abnormal 54145-5) [facility] GLUCOSE (AUTOMATED)2021-07-16 06:16:55 Test Item Value Reference Range Interpretation Comments POCT GLU (test code = 6563990876) 186 mg/dL 70-110 H Lab Interpretation (test code = Abnormal 42557-7) [facility], [id number] 05:51:15 Test Item Value Reference Range Interpretation Comments dLDL Chol (test code = 91865-6) 41 mg/dL <130 Lab Interpretation (test code = Normal 27724-4) [facility] GLUCOSE (AUTOMATED)2021-07-16 05:27:27 Test Item Value Reference Range Interpretation Comments POCT GLU (test code = 0764355843) 222 mg/dL 70-110 H Lab Interpretation (test code = Abnormal 59826-1) [facility] GLUCOSE (AUTOMATED)2021-07-16 04:31:26 Test Item Value Reference Range Interpretation Comments POCT GLU (test code = 3084886290) 242 mg/dL 70-110 H Lab Interpretation (test code = Abnormal 16286-2) [facility] (43837)2021-07-16 03:44:51 Test Item Value Reference Range Interpretation Comments NA (test code = 138 mmol/L 135-145 3090018167) K (test code = 4.2 mmol/L 3.5-5.0 6234585354) CL (test code = 109 mmol/L 98-108 H 7383661947) CO2 TOTAL (test code = 17 mmol/L 23-31 L 7130483706) AGAP (test code = 2-16 3296621121) BUN (test code = 18 mg/dL 7-23 9205504373) GLUCOSE (test code = 242 mg/dL 70-110 H 2162460434) CREATININE (test code = 0.61 mg/dL 0.60-1.25 1260088369) TOTAL BILI (test code = 0.9 mg/dL 0.1-1.1 8734489632) CALCIUM (test code = 8.7 mg/dL 8.6-10.6 9292323675) T PROTEIN (test code = 7.6 g/dL 6.3-8.2 6151695023) ALBUMIN (test code = 4.2 g/dL 3.5-5.0 2209431160) ALK PHOS (test code = 59 U/L 34-122 3156927354) ALTv (test code = 30 U/L 5-50 1741-6) AST(SGOT) (test code = 31 U/L 13-40 4681196187) eGFR (test code = mL/min/1.73m2 0336382915) FRANCES (test code = FRANCES) Association of Glomerular Filtration Rate (GFR) and Staging of Kidney Disease* + --+ --+ ------+| GFR (mL/min/1.73 m2) ?| With Kidney Damage ?| ?Without Kidney Damage+ --------+ --------+ +| ?>90 ?| ?Stage one ?| ? Normal ?+ ---+ ---+ -------+| ?60-89 ?| ?Stage two ?| ? Decreased GFR ? + --+ --+ ------+| ?30-59 ?| ?Stage three ?| ? Stage three ? + --+ --+ ------+| ?15-29 ?| ?Stage four ? | ? Stage four ?+ ---+ ---+ -------+| ?<15 (or dialysis) ? ?| ?Stage five ? | ? Stage five ?+ ---+ ---+ -------+ *Each stage assumes the associated GFR level has been in effect for at least three months. ?Stages 1 to 5, with or without kidney disease, indicate chronic kidney disease. Notes: Determination of stages one and two (with eGFR >59mL/min/1.73 m2) requires estimation of kidney damage for at least three months as defined by structural or functional abnormalities of the kidney, manifested by either:Pathological abnormalities or Markers of kidney damage (including abnormalities in the composition of the blood or urine or abnormalities in imaging tests). Lab Interpretation Abnormal (test code = 50860-8) [facility]21-[facility]16 03:13:43 Test Item Value Reference Range Interpretation Comments POCT GLU (test code = 6410766702) 271 mg/dL 70-110 H Lab Interpretation (test code = Abnormal 19852-3) [facility] ([id number])(TOTAL CHOLESTEROL, TRIGLYCERIDES, HDL)2021-07-15 23:44:57 Test Item Value Reference Range Interpretation Comments CHOL (test code = 465 mg/dL 120-200 H 0250066753) HDL (test code = 35 mg/dL >40 L 6539094716) HDLC RATIO (test code See_Comment H [Auto mated = 8958844464) message] The system which generated this result transmit hue reference range : <=5.0. The reference range was not used to interpret this result as normal/abnormal . TRIG (test code = >1575 30-170 H 9109801685) LDL CHOL (test code = Unable to 89285-4) calculate LDL d ue to elevated triglyceride le charissa greater than 40 0 mg/dL. VLDL (test code = Unable to 1093746182) calculate VLDL due to elevated triglyceride le charissa greater than 71 0 mg/dL. FRANCES (test code = FRANCES) Trig value 4667 mg/dl Lab Interpretation Abnormal (test code = 58792-1) [facility]GL[facility]GLOB[facility] (A1C)2021-07-15 21:27:58 Test Item Value Reference Range Interpretation Comments HGB A1C (test code = 10.6 % 4.0-5.7 H 4548-4) FRANCES (test code = FRANCES) Reference RangesNormal: <5.7%Prediabetes: 5.7 - 6.4%Diabetes: > 6.5% Lab Interpretation (test Abnormal code = 95550-3) [facility]IP[facility], [id number] 21:27:48 Test Item Value Reference Range Interpretation Comments LIPASE (test code = 4908299082) 2372 U/L 0-220 H Lab Interpretation (test code = Abnormal 42019-8) [facility]TR[facility] [id number] 21:05:36 Test Item Value Reference Interpretation Comments Range TROPONIN I (test 0.001 ng/mL See_Comment [Automated code = 8943876165) message] The system which generated this result transmitted reference range : <=0.034. The reference range was not used to interpret this result as normal/abnormal . FRANCES (test code = Reference (Normal) FRANCES) Range (defined by the 99th percentile reference limit): <= 0.034 ng/mL Note: Cardiac troponin begins to rise 3-4 hours after the onset of ischemia. Repeat in 4-6 hours if the sample was drawn within 3-4 hours of the onset of the symptom and found normal. Diagnosis of myocardial injury is made with acute changes in cTn concentrations with at least one serial sample above the 99th percentile upper reference limit (URL), taken together with the patient's clinical presentation. Biotin has been reported to cause a negative bias, interpret results relative to patient's use of biotin. Lab Interpretation Normal (test code = 00539-0) [facility] 20:54:53 Test Item Value Reference Range Interpretation Comments APTT Patient (test See_Comment [Automat ed code = 3173-2) message] The system which generated this result transmitted reference range : 23 - 38 Seconds . The reference range was not used to interpr et this result as normal/abnormal . FRANCES (test code = FRANCES) The [facility] patient population mean normal value for aPTT is 30 seconds. Lab Interpretation Normal (test code = 12169-1) [facility]COMP. METABOLIC PANEL ([id number])2021-07-15 20:54:33 Test Item Value Reference Range Interpretation Comments NA (test code = 139 mmol/L 135-145 4466690029) K (test code = 4.3 mmol/L 3.5-5.0 2244042625) CL (test code = 105 mmol/L 98-108 3615960690) CO2 TOTAL (test code = 17 mmol/L 23-31 L 2800190704) AGAP (test code = 2-16 H 8073181801) BUN (test code = 21 mg/dL 7-23 7859932755) GLUCOSE (test code = 272 mg/dL 70-110 H 0426326978) CREATININE (test code = 0.69 mg/dL 0.60-1.25 8151516546) TOTAL BILI (test code = 0.8 mg/dL 0.1-1.9 1131915563) CALCIUM (test code = 9.5 mg/dL 8.6-10.6 1472011932) T PROTEIN (test code = 8.7 g/dL 6.3-8.2 H 0949912891) ALBUMIN (test code = 4.7 g/dL 3.5-5.0 3884209773) ALK PHOS (test code = 71 U/L 34-122 3992764207) ALTv (test code = 30 U/L 5-50 1742-6) AST(SGOT) (test code = 25 U/L 13-40 2211282854) eGFR (test code = mL/min/1.73m2 2090564789) FRANCES (test code = FRANCES) Association of Glomerular Filtration Rate (GFR) and Staging of Kidney Disease* + --+ --+ ------+| GFR (mL/min/1.73 m2) ?| With Kidney Damage ?| ?Without Kidney Damage+ --------+ --------+ +| ?>90 ?| ?Stage one ?| ? Normal ?+ ---+ ---+ -------+| ?60-89 ?| ?Stage two ?| ? Decreased GFR ? + --+ --+ ------+| ?30-59 ?| ?Stage three ?| ? Stage three ? + --+ --+ ------+| ?15-29 ?| ?Stage four ? | ? Stage four ?+ ---+ ---+ -------+| ?<15 (or dialysis) ? ?| ?Stage five ? | ? Stage five ?+ ---+ ---+ -------+ *Each stage assumes the associated GFR level has been in effect for at least three months. ?Stages 1 to 5, with or without kidney disease, indicate chronic kidney disease. Notes: Determination of stages one and two (with eGFR >59mL/min/1.73 m2) requires estimation of kidney damage for at least three months as defined by structural or functional abnormalities of the kidney, manifested by either:Pathological abnormalities or Markers of kidney damage (including abnormalities in the composition of the blood or urine or abnormalities in imaging tests). Lab Interpretation Abnormal (test code = 04132-2) [facility] HospitalPROTHROMBIN TIME / [id number] 20:52:53 Test Item Value Reference Range Interpretation Comments PROTIME PATIENT (test See_Comment L [Auto mated message] code = 5964-2) The system wh ich generated this result transmitted ref erence range: 12.0 - 1 4.7 Seconds. The reference range was not used to int erpret this result as normal/abnormal . INR (test code = 6301-6) Nor mal INR <1.1; Warfarin Therap eutic range 2.0 to 3. 0 or 2.5 to 3.5, dep ending upon the indica tions. Lab Interpretation (test Abnormal code = 86774-5) [facility] HospitalCBC WITH [id number] 20:42:35 Test Item Value Reference Range Interpretation Comments WBC (test code = See_Comment H [Automated 8690-2) message] The system which generated this result transmit hue reference range : 4.20 - 10.70 10*3/?L. The reference range was not used to interpret this result as normal/abnormal . RBC (test code = See_Comment [Automated 459-8) message] The system which generated this result transmit hue reference range : 4.26 - 5.52 10*6/?L. The reference range was not used to interpret this result as normal/abnormal . HGB (test code = 14.5 g/dL 12.2-16.4 718-7) HCT (test code = 40.2 % 38.4-49.3 4544-3) MCV (test code = 79.8 fL 81.7-95.6 L 787-2) MCH (test code = 28.8 pg 26.1-32.7 785-6) MCHC (test code = 36.1 g/dL 31.2-35.0 H 786-4) RDW-SD (test code = 35.7 fL 38.5-51.6 L 13748-5) RDW-CV (test code = 12.6 % 12.1-15.4 788-0) PLT (test code = See_Comment [Automated 137-3) message] The system which generated this result transmit hue reference range : 150 - 328 10*3/ ?L. The reference range was not u sed to interpret th is result as normal/abnormal . MPV (test code = 11.8 fL 9.8-13.0 53310-9) NRBC/100 WBC (test See_Comment [Automat ed code = 5360500643) message] The system which generated this result transmit hue reference range : 0.0 - 10.0 /100 WBCs. The reference range was not used to interpret this result as normal/abnormal . NRBC x10^3 (test code <0.01 See_Comment [Auto mated = 7915894529) message] The system which generated this result transmit hue reference range : 10*3/?L. The reference range was not used to interpret this result as normal/abnormal . GRAN MAT (NEUT) % 84.9 % (test code = 770-8) IMM GRAN % (test code 0.40 % = 1524585437) LYMPH % (test code = 10.3 % 736-9) MONO % (test code = 3.9 % 5905-5) EOS % (test code = 0.2 % 713-8) BASO % (test code = 0.3 % 706-2) GRAN MAT x10^3(ANC) 10.26 10*3/uL 1.99-6.95 H (test code = 1268580340) IMM GRAN x10^3 (test 0.05 10*3/uL 0.00-0.06 code = 0887277281) LYMPH x10^3 (test code 1.24 10*3/uL 1.09-3.23 = 731-0) MONO x10^3 (test code 0.47 10*3/uL 0.36-1.02 = 742-7) EOS x10^3 (test code = 0.03 10*3/uL 0.06-0.53 L 711-2) BASO x10^3 (test code 0.04 10*3/uL 0.01-0.09 = 704-7) Lab Interpretation Abnormal (test code = 83076-1) [facility]
[2021-10-14] MEDS ORDERED: FAMOTIDINE 20 MG/2 ML VIAL IV ONE (23:09)
[2021-10-14] MEDS ORDERED: ONDANSETRON 4 MG/2 ML VIAL ONE (23:09)
[2021-10-14] MEDS ORDERED: MORPHINE 4 MG/ML SYR ONE (23:09)
[2021-10-14] MEDS ORDERED: NA CHLORIDE 0.9% 1,000 ML ONE (23:09)
[2021-10-14 23:10] LABS: Absolute Lymphocytes (CBC) 0.7 K/uL (0.7-4.9); Hematocrit 39.4 % (39.6-49.0); Lymphocytes % 7.3 % (15.3-44.8); MPV 8.9 fL (7.6-11.3); RBC Red Blood Cell Count 4.93 M/uL (4.33-5.43)
[2021-10-14 23:28] LABS: Albumin 3.9 g/dL (3.4-5.0); Bilirubin Total 0.6 mg/dL (0.2-1.0); Potassium 3.7 mmol/L (3.5-5.1); Protein, Total 7.9 g/dL (6.4-8.2)
[2021-10-15] MEDS ORDERED: HYDROMORPHONE HCL 1 MG/ML INJ ONE ×2 (01:30→05:41)
[2021-10-15 01:48] LABS: Urine Blood Negative (Negative); Urine Glucose 2+ (Negative); Urine Protein Negative (Negative); Urine Specific Gravity 1.025 (1.005-1.030); Urine pH 5.5 (5.0-7.0)
--- NOTE | 2021-10-15 02:06 | ER ---
Nurse's Notes [facility] Name: Javier Rutherford Age: 46 yrs Sex: Male : 1975 Arrival Date: 10/14/2021 Time: 22:05 Bed 3 Private MD: Diagnosis: Acute pancreatitis, Intractable Pain Presentation: 10/14 22:20 Chief complaint: Patient states: he is having upper abdominal pain since this morning bb but his was at work and couldn't bring him until now he denies vomiting or diarrhea says he has a history of pancreatitis but this feels different. Coronavirus screen: At this time, the client does not indicate any symptoms associated with coronavirus-19. Ebola Screen: No symptoms or risks identified at this time. Initial Sepsis Screen: Does the patient meet any 2 criteria? No. Patient's initial sepsis screen is negative. Does the patient have a suspected source of infection? No. Patient's initial sepsis screen is negative. Risk Assessment: Do you want to hurt yourself or someone else? Patient reports no desire to harm self or others. Onset of symptoms was October 14, 2021. 22:20 Method Of Arrival: Ambulatory bb 22:20 Acuity: HANY 3 bb Triage Assessment: 22:30 General: Appears uncomfortable, Behavior is calm, cooperative. Pain: Complains of pain ll3 in left upper quadrant and right upper quadrant and epigastric area. Neuro: Level of Consciousness is awake, alert, obeys commands, Oriented to person, place, time, situation. GI: Abdomen is round non-distended, Reports upper abdominal pain. Derm: Skin is pink, warm \T\ dry. Historical: - Allergies: 22:23 No Known Allergies; bb - Home Meds: 22:23 atorvastatin Oral once daily [Active]; metformin 1,000 mg Oral tab 1 tab 2 times per bb day [Active]; Gemfibrozil Oral [Active]; - PMHx: 22:23 Diabetes - NIDDM; fatty liver; Hyperlipidemia; Pancreatitis; bb - PSHx: 22:23 Vasectomy; Hernia; Cholecystectomy; bb - Immunization history:: Client reports receiving the 2nd dose of the Covid vaccine, Moderna. - Social history:: Smoking status: Patient denies any tobacco usage or history of. Screenin/08 01:43 Abuse screen: Denies threats or abuse. Nutritional screening: No deficits noted. ll3 Tuberculosis screening: No symptoms or risk factors identified. Fall Risk No fall in past 12 months (0 pts). No secondary diagnosis (0 pts). IV access (20 points). Ambulatory Aid- None/Bed Rest/Nurse Assist (0 pts). Gait- Normal/Bed Rest/Wheelchair (0 pts) Mental Status- Oriented to own ability (0 pts). Total Morales Fall Scale indicates No Risk (0-24 pts). Assessment: 00:05 Reassessment: No changes from previously documented assessment. Patient and/or family ll3 updated on plan of care and expected duration. Pain level reassessed. Patient is alert, oriented x 3, equal unlabored respirations, skin warm/dry/pink. 01:42 Reassessment: No changes from previously documented assessment. Patient and/or family ll3 updated on plan of care and expected duration. Pain level reassessed. Patient is alert, oriented x 3, equal unlabored respirations, skin warm/dry/pink. 03:36 Reassessment: No changes from previously documented assessment. Patient and/or family ll3 updated on plan of care and expected duration. Pain level reassessed. Patient is alert, oriented x 3, equal unlabored respirations, skin warm/dry/pink. Vital Signs: 10/14 22:20 BP 145 / 85; Pulse 77; Resp 18 S; Temp 98.6(O); Pulse Ox 96% on R/A; Weight 86.18 kg bb (R); Height 5 ft. 8 in. (172.72 cm) (R); Pain 10/10; 23:00 BP 152 / 76; Pulse 69; Resp 18; Pulse Ox 95% on R/A; ll3 10/15 00:05 BP 152 / 76; Pulse 69; Resp 18; Pulse Ox 95% on R/A; ll3 01:42 BP 151 / 78; Pulse 72; Resp 15; Pulse Ox 96% on R/A; ll3 03:36 BP 135 / 41; Pulse 72; Resp 16; Pulse Ox 96% on R/A; ll3 10/14 22:20 Body Mass Index 28.89 (86.18 kg, 172.72 cm) ED Course: 10/14 22:05 Patient arrived in ED. as 22:22 Triage completed. bb 22:23 Arm band placed on Patient placed in an exam room, on a stretcher, on pulse oximetry. bb 22:25 Kolton Licona MD is Attending Physician. mh7 23:10 Inserted saline lock: 20 gauge in left antecubital area, using aseptic technique. Blood ll3 collected. 10/15 00:32 CT Abd/Pelvis - IV Contrast Only In Process Unspecified. EDMS 02:05 dAan Harrington MD is Hospitalizing Provider. 7 03:35 No provider procedures requiring assistance completed. ll3 03:36 Patient has correct armband on for positive identification. Bed in low position. Call ll3 light in reach. Side rails up X 1. Client placed on continuous cardiac and pulse oximetry monitoring. NIBP monitoring applied. 05:20 Arpan Mckeon MD is Hospitalizing Provider. sb3 07:39 Deonna Avendano, ARACELI is Primary Nurse. ph Administered Medications: 10/14 22:55 Drug: NS 0.9% 1000 ml Route: IV; Rate: 1 bolus; Site: left antecubital; kl 22:55 Drug: Pepcid (famotidine) 20 mg Route: IVP; Site: left antecubital; kl 23:00 Drug: Zofran (Ondansetron) 4 mg Route: IVP; Site: left antecubital; kl 23:05 Drug: morphine 4 mg Route: IVP; Infused Over: 4 mins; Site: left antecubital; kl 10/15 01:26 Drug: Dilaudid (HYDROmorphone) 1 mg Route: IVP; Site: left antecubital; Outcome: 02:06 Decision to Hospitalize by Provider. [facility] 08:05 Admitted to Med/surg accompanied by tech, via wheelchair, with chart. ph 08:05 Condition: good 08:05 Instructed on the need for admit. 08:14 Patient left the ED. ph Signatures: Dispatcher [employer] EDMS Shahrzad Ramirez RN RN kl Martinez, Amelia as Ballard, Brenda, RN RN bb Deonna Avendano RN RN ph Holmes, Maurice, MD MD [facility] Etta Jackson RN RN 3 Kelley Sidhu PA PA sb3
--- NOTE | 2021-10-15 02:07 | EDPHYS ---
Physician Documentation [facility] Name: Javier Rutherford Age: 46 yrs Sex: Male : 1975 Arrival Date: 10/14/2021 Time: 22:05 Bed 3 Private MD: SELENE Physician Kolton Licona HPI: 10/14 22:35 This 46 yrs old Male presents to ER via Ambulatory with complaints of mh7 Abdominal Pain, Leg Pain. 22:35 The patient presents with abdominal pain in the upper abdomen. mh7 22:35 Onset: The symptoms/episode began/occurred this morning, today. The symptoms do not mh7 radiate. Associated signs and symptoms: Pertinent negatives: nausea, vomiting, and diarrhea, anorexia, blood in stools, chest pain, constipation, diarrhea, dysuria, fever, headache, hematuria, nausea, palpitations, shortness of breath, testicular pain, vomiting, vomiting blood. The symptoms are described as intermittent, vague, waxing/waning. Modifying factors: The symptoms are alleviated by nothing, the symptoms are aggravated by movement, touching the area. Severity of pain: At its worst the pain was moderate today, in the emergency department the pain has improved mildly. Historical: - Allergies: 22:23 No Known Allergies; bb - Home Meds: 22:23 atorvastatin Oral once daily [Active]; metformin 1,000 mg Oral tab 1 tab 2 times per bb day [Active]; Gemfibrozil Oral [Active]; - PMHx: 22:23 Diabetes - NIDDM; fatty liver; Hyperlipidemia; Pancreatitis; bb - PSHx: 22:23 Vasectomy; Hernia; Cholecystectomy; bb - Immunization history:: Client reports receiving the 2nd dose of the Covid vaccine, Moderna. - Social history:: Smoking status: Patient denies any tobacco usage or history of. ROS: 22:35 Constitutional: Negative for fever, chills, and weight loss, Eyes: Negative for injury, mh7 pain, redness, and discharge, ENT: Negative for injury, pain, and discharge, Neck: Negative for injury, pain, and swelling, Cardiovascular: Negative for chest pain, palpitations, and edema, Respiratory: Negative for shortness of breath, cough, wheezing, and pleuritic chest pain, Back: Negative for injury and pain, : Negative for injury, bleeding, discharge, and swelling, MS/Extremity: Negative for injury and deformity, Skin: Negative for injury, rash, and discoloration, Neuro: Negative for headache, weakness, numbness, tingling, and seizure, Psych: Negative for depression, anxiety, suicide ideation, homicidal ideation, and hallucinations, Allergy/Immunology: Negative for hives, rash, and allergies, Endocrine: Negative for neck swelling, polydipsia, polyuria, polyphagia, and marked weight changes, Hematologic/Lymphatic: Negative for swollen nodes, abnormal bleeding, and unusual bruising. Exam: 22:35 Head/Face: Normocephalic, atraumatic. Eyes: Pupils equal round and reactive to light, mh7 extra-ocular motions intact. Lids and lashes normal. Conjunctiva and sclera are non-icteric and not injected. Cornea within normal limits. Periorbital areas with no swelling, redness, or edema. Neck: Trachea midline, no thyromegaly or masses palpated, and no cervical lymphadenopathy. Supple, full range of motion without nuchal rigidity, or vertebral point tenderness. No Meningismus. Chest/axilla: Normal chest wall appearance and motion. Nontender with no deformity. No lesions are appreciated. Cardiovascular: Regular rate and rhythm with a normal S1 and S2. No gallops, murmurs, or rubs. Normal PMI, no JVD. No pulse deficits. Respiratory: Lungs have equal breath sounds bilaterally, clear to auscultation and percussion. No rales, rhonchi or wheezes noted. No increased work of breathing, no retractions or nasal flaring. 22:35 Back: No spinal tenderness. No costovertebral tenderness. Full range of motion. Skin: Warm, dry with normal turgor. Normal color with no rashes, no lesions, and no evidence of cellulitis. MS/ Extremity: Pulses equal, no cyanosis. Neurovascular intact. Full, normal range of motion. Neuro: Awake and alert, GCS 15, oriented to person, place, time, and situation. Cranial nerves II-XII grossly intact. Motor strength 5/5 in all extremities. Sensory grossly intact. Cerebellar exam normal. Normal gait. Psych: Awake, alert, with orientation to person, place and time. Behavior, mood, and affect are within normal limits. 22:35 Constitutional: The patient appears in no acute distress, alert, awake, uncomfortable. 22:35 Abdomen/GI: Inspection: obese Bowel sounds: normal, in all quadrants, Palpation: moderate abdominal tenderness, in the epigastric area, right upper quadrant and left upper quadrant, mass, is not appreciated, rebound tenderness, is not appreciated, voluntary guarding, is not appreciated, involuntary guarding, is not appreciated, no appreciated organomegaly, Indicators: McBurney's point is not tender, Alfaro's sign is negative, Rovsing's sign is negative, Obturator sign is negative, Psoas sign is negative, Liver: no appreciated palpable abnormalities, Hernia: not appreciated. Vital Signs: 22:20 BP 145 / 85; Pulse 77; Resp 18 S; Temp 98.6(O); Pulse Ox 96% on R/A; Weight 86.18 kg bb (R); Height 5 ft. 8 in. (172.72 cm) (R); Pain 10/10; 23:00 BP 152 / 76; Pulse 69; Resp 18; Pulse Ox 95% on R/A; ll3 08 00:05 BP 152 / 76; Pulse 69; Resp 18; Pulse Ox 95% on R/A; ll3 01:42 BP 151 / 78; Pulse 72; Resp 15; Pulse Ox 96% on R/A; ll3 03:36 BP 135 / 41; Pulse 72; Resp 16; Pulse Ox 96% on R/A; ll3 08/ 22:20 Body Mass Index 28.89 (86.18 kg, 172.72 cm) MDM: 02:02 Differential diagnosis: bowel obstruction, diverticulitis, gastritis, gastroesophageal mh7 reflux disease, non-specific abd pain, pancreatitis, Peptic Ulcer Disease, Perf. Duodenal Ulcer, Pyelonephritis, Ureterolithiasis, urinary tract infection. Data reviewed: vital signs, nurses notes, old medical records, lab test result(s), amylase and lipase, CBC, electrolytes, EKG, radiologic studies, CT scan. Data interpreted: Pulse oximetry: on room air is 96 %. Interpretation: normal. Counseling: I had a detailed discussion with the patient and/or guardian regarding: the historical points, exam findings, and any diagnostic results supporting the discharge/admit diagnosis, the presence of at least one elevated blood pressure reading (>120/80) during this emergency department visit, lab results, radiology results, the need for further work-up and treatment in the hospital. Response to treatment: the patient's symptoms have mildly improved after treatment. 02:06 Patient medically screened. [facility] 10/14 22:47 Order name: CBC with Diff; Complete Time: 23:26 [facility] 10/14 22:47 Order name: CMP; Complete Time: 23:46 7 10/14 22:47 Order name: Lipase; Complete Time: 23:46 [facility] 10/15 01:48 Order name: Urine Dipstick-Ancillary; Complete Time: 01:52 EDMS 10/15 02:11 Order name: SARS RAPID; Complete Time: 02:40 ll3 10/15 04:39 Order name: CBC with Automated Diff; Complete Time: 05:19 EDMS 10/14 22:47 Order name: CT Abd/Pelvis - IV Contrast Only [facility] 10/15 04:48 Order name: Comprehensive Metabolic Panel; Complete Time: 05:19 EDMS 10/15 04:48 Order name: Phosphorus; Complete Time: 05:19 EDMS 10/15 04:48 Order name: Lipid Profile; Complete Time: 05:19 EDMS 10/15 04:48 Order name: Magnesium; Complete Time: 05:19 EDMS 10/15 04:48 Order name: Lipase; Complete Time: 05:19 EDMS 10/15 04:59 Order name: Hemoglobin A1c; Complete Time: 05:19 EDMS 10/15 08:02 Order name: Glucose, Ancillary Testing [facility] 10/14 22:47 Order name: IV Saline Lock; Complete Time: 23:07 [facility] 10/14 22:47 Order name: Labs collected and sent; Complete Time: 23:07 [facility] 10/14 22:47 Order name: Urine Dipstick-Ancillary (obtain specimen); Complete Time: 01:54 [facility] 10/14 22:47 Order name: EKG; Complete Time: 22:49 [facility] 10/14 22:47 Order name: EKG - Nurse/Tech; Complete Time: 23:48 [facility] Administered Medications: 10/14 22:55 Drug: NS 0.9% 1000 ml Route: IV; Rate: 1 bolus; Site: left antecubital; kl 22:55 Drug: Pepcid (famotidine) 20 mg Route: IVP; Site: left antecubital; kl 23:00 Drug: Zofran (Ondansetron) 4 mg Route: IVP; Site: left antecubital; 23:05 Drug: morphine 4 mg Route: IVP; Infused Over: 4 mins; Site: left antecubital; kl 10/15 01:26 Drug: Dilaudid (HYDROmorphone) 1 mg Route: IVP; Site: left antecubital; Disposition Summary: 10/15/21 02:06 Hospitalization Ordered Hospitalization Status: Inpatient Admission mh7 Condition: Stable mh7 Problem: an acute exacerbation mh7 Symptoms: have improved 7 Bed/Room Type: Standard [facility] Provider: Arpan Mckeon(10/15/21 05:20) sb3 Location: Telemetry/MedSurg (Inpatient)(10/15/21 07:38) [facility] Room Assignment: [facility](10/15/21 07:38) [facility] Diagnosis - Acute pancreatitis, Intractable Pain [facility] Forms: - Medication Reconciliation Form 7 - SBAR form [facility] Signatures: Dispatcher [employer] EDShahrzad Brewer RN RN kl Ballard, Brenda RN Marie Bruno RN RN cg Leal, Jahala, RN RN jl7 Kolton Licona MD MD mh7 Brown, Sophia, PA PA sb3 Corrections: (The following items were deleted from the chart) 10/14 23:26 23:25 This 46 yrs old Male presents to ER via Ambulatory with complaints of mh7 Abdominal Pain, Leg Pain. [facility] 10/15 02:40 02:06 Telemetry/MedSurg (Inpatient) [facility] cg 02:40 02:06 [facility] cg 05:20 02:06 Adan Harrington 7 sb3 07:38 02:40 [facility] ER HOLD cg jl7 07:38 02:40 ERHOLD- cg jl7
[2021-10-15 02:34] LABS: SARS-CoV-2 Antigen Rapid Res Negative (Negative)
--- NOTE | 2021-10-15 02:50 | P.HP ---
Certification for Inpatient Patient admitted to: Inpatient With expected LOS: >2 Midnights Patient will require the following post-hospital care: None Practitioner: I am a practitioner with admitting privileges, knowledge of patient current condition, hospital course, and medical plan of care. Services: Services provided to patient in accordance with Admission requirements found in Title 42 Section 412.3 of the Code of Federal Regulations Patient History Date of Service: 10/15/21 Primary Care Provider: Garfield Reason for admission: Acute on Chronic Pancreatitis History of Present Illness: Patient is a 46-year-old male with insulin-dependent diabetes mellitus, chronic pancreatitis secondary to hypertriglyceridemia, and fatty liver who presented to the ED with complaints of abdominal pain. Patient reports that this abdominal pain feels different from his similar episodes of pancreatitis. He reports the pain is located in his epigastric region and radiates to his back and chest. His vital signs are stable. Labs significant for lipase 9877 (highest it has ever been per chart review). Glucose 251. CT abdomen pelvis showed diffuse peripancreatic inflammation and edema most consistent with acute pancreatitis. There is no evidence of pancreatic duct dilation. He was given fluids, morphine, Zofran, and Dilaudid in the ED with some improvement in pain. Patient is admitted for further evaluation and treatment. Allergies No Known Allergies Allergy (Verified 10/31/19 02:57) Home Medications: Insulin Degludec [Tresiba Flextouch U-200] 30 units SQ BID 11/01/19 Metformin HCl 1,000 mg PO BID 03/07/20 Pantoprazole Sodium [Protonix] 40 mg PO DAILY 03/07/20 Insulin NPH Human Isophane [Novolin N Flexpen] 03/11/21 Docosahexanoic AC/Epa [Fish Oil 1,000 MG*] 2,000 mg PO BID #120 cap 03/13/21 Fenofibrate,Micronized [Fenofibrate] 200 mg PO DAILY #30 03/13/21 gemfibroziL [Lopid*] 600 mg PO BID #60 tab 03/13/21 traMADol HCL [Ultram*] 50 mg PO TID PRN #10 tab 03/13/21 - Past Medical/Surgical History Diabetic: Yes -: pancreatitis -: hyperlipidemia -: IDDM -: fatty liver -: Hypertriglyceridemia -: Cholecystectomy -: Hernia sx -: vasectomy Psychosocial/ Personal History: 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 lives 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 his - Family History Sister -: Diabetes, Cancer Mother -: Diabetes Brother -: GI disease, Diabetes Notes: Pancreatitis - Social History Smoking Status: Never smoker Alcohol use: No CD- Drugs: No Caffeine use: No Place of Residence: Home Review of Systems Cardiovascular: Chest Pain Gastrointestinal: Nausea, Vomiting, Abdominal Pain Physical Examination - Physical Exam General: Alert, In no apparent distress HEENT: Atraumatic, PERRLA, EOMI, Sclerae nonicteric Neck: Supple, 2+ carotid pulse no bruit, No LAD, Without JVD or thyroid abnormality Respiratory: Clear to auscultation bilaterally, Normal air movement Cardiovascular: Regular rate/rhythm, Normal S1 S2 Gastrointestinal: Normal bowel sounds, No rebound, No guarding, Tenderness Musculoskeletal: No tenderness Integumentary: No rashes Neurological: Normal speech, Normal strength at 5/5 x4 extr, Normal tone, Normal affect - Studies Laboratory Data (last 24 hrs) 10/14/21 22:55: Sodium 136, Potassium 3.7, BUN 16, Creatinine 0.93, Glucose 251 H, Total Bilirubin 0.6, AST 32, ALT 50, Alkaline Phosphatase 51, Lipase 9877 H 10/14/21 22:55: WBC 9.2, Hgb 13.3 L, Hct 39.4 L, Plt Count 205 Assessment and Plan - Problems (Diagnosis) (1) Acute pancreatitis Current Visit: Yes Status: Acute Qualifiers: Pancreatitis type: other Acute pancreatitis complication: no infection or necrosis Qualified Code(s): K85.80 - Other acute pancreatitis without necrosis or infection (2) Diabetes mellitus Current Visit: Yes Status: Chronic Qualifiers: Diabetes mellitus type: type 2 Diabetes mellitus longterm insulin use: with watermaster use Diabetes mellitus complication status: with hyperglycemia Qualified Code(s): E11.65 - Type 2 diabetes mellitus with hyperglycemia; Z79.4 - longterm (current) use of insulin (3) Fatty liver Current Visit: Yes Status: Chronic (4) Hypertriglyceridemia Current Visit: Yes Status: Chronic - Plan -Continue aggressive IV fluid hydration. NPO. -Pain management and antiemetics as needed -Aggressive sliding scale insulin, A1C pending -Current lipase 9000, highest it as ever been per chart review -Daily lipase, triglycerides, CBC, CMP -Lead Qa Analyst regarding dietary intake. Patient denies alcohol use. -Reconcile and continue home medications -Monitor and replete electrolytes per protocol -DVT ppx Discharge Plan: Home Plan to discharge in: Greater than 2 days - Advance Directives Does patient have a Living Will: No Does patient have a Durable POA for Healthcare: No - Code Status/Comfort Care Code Status Assessed: Yes (Full) Critical Care: No Time Spent Managing Pts Care (In Minutes): 50
[2021-10-15] MEDS ORDERED: ACETAMINOPHEN 500 MG TAB PO PRN (03:43)
[2021-10-15 04:36] LABS: Absolute Lymphocytes (CBC) 0.8 K/uL (0.7-4.9); Hematocrit 35.7 % (39.6-49.0); Lymphocytes % 9.2 % (15.3-44.8); RBC Red Blood Cell Count 4.46 M/uL (4.33-5.43)
[2021-10-15 04:45] LABS: Albumin 3.6 g/dL (3.4-5.0); Bilirubin Total 0.5 mg/dL (0.2-1.0); Magnesium 1.9 mg/dL (1.8-2.4); Phosphorus 3.4 mg/dL (2.5-4.9); Potassium 3.9 mmol/L (3.5-5.1); Protein, Total 7.1 g/dL (6.4-8.2)
[2021-10-15] MEDS: NA CHLORIDE 0.9% 1,000 ML IV SCH ×3 (05:00→20:15)
[2021-10-15] MEDS ORDERED: NA CHLORIDE 0.9% 1,000 ML ONE (05:15)
[2021-10-15] MEDS: HYDROMORPHONE HCL 1 MG/ML INJ IV PRN ×5 (05:25→20:43)
[2021-10-15] MEDS: INSULIN -REGULAR HUMAN 50 UNIT/0.5 ML ML SQ SCH ×5 (07:30→21:00)
[2021-10-15] MEDS: ENOXAPARIN 40 MG/0.4 ML SQ SCH (09:20)
--- NOTE | 2021-10-15 13:10 | RAD REPORT ---
EXAM DESCRIPTION: CT - Abdomen Pelvis W Contrast - 10/15/2021 6:52 am CLINICAL HISTORY: 46 years Male Abdominal pain, acute, nonlocalized TECHNIQUE: Axial CT imaging of the abdomen and pelvis was performed following the administration of intravenous contrast.. Oral contrast was not administered. Sagittal and coronal reconstructed image s were then performed. The CT study is performed according to ALARA (as low as reasonably achievabl e) or ALARA/IMAGE GENTLY, with automatic adjustment of mA and/or kV according to patient size. Performed on: 10/15/2021 at 12:19 AM. COMPARISON: CT abdomen and pelvis with IV contrast performed on 03/09/2021 FINDINGS: Lung bases: The lung bases are clear. Liver: Liver measures approximately 18 cm in craniocaudal dimension. No focal hepatic abnormalities a re identified. There is decreased attenuation of the liver, many due to fatty infiltration. The hepat ic and portal veins are patent. Spleen: The spleen is normal is size, configuration and attenuation. Gallbladder and bile duct: The gallbladder is surgically absent. The common bile duct is dilated an d this is likely physiologic in nature following cholecystectomy. The appearance is similar when comp ared to the prior study. There is normal tapering of the distal common bile duct. Pancreas: The pancreas is grossly normal in size and configuration. There is diffuse peripancreatic i nflammation and edema most consistent with pancreatitis. There is no evidence of pancreatic duct dila tation. There is a calcification in the pancreatic head similar when compared to the prior study. The previously noted cystic lesion in the region of the pancreatic tail is not well delineated on this e xamination and may have resolved. Adrenal Glands: The adrenal glands are normal in size and configuration. Kidneys: The kidneys are normal in size and configuration. There is no evidence of hydronephrosis. Th ere is no evidence of nephrolithiasis. No definite solid or cystic renal mass lesions are identified. Stomach: The stomach is mildly distended with fluid and is otherwise unremarkable. There is no defini te hiatal hernia. Bowel: The bowel gas pattern is non specific and non obstructive. There is mild duodenal wall thicken ing likely related to surrounding inflammatory changes. There is occasional colonic diverticulosis. Appendix: The appendix is normal. Free air: There is no evidence of free air. Free fluid: There is no evidence of free fluid. Vasculature: The aorta is normal in caliber and contour. The inferior vena cava is grossly unremarkab le. Lymphadenopathy: No pathologic lymphadenopathy is identified. There are mildly prominent retroperiton eal nodes, similar to the prior study which are likely reactive and inflammatory in nature. Bladder: The bladder is well distended and smooth in contour. Reproductive: The prostate gland. is grossly within normal limits. Bones: No acute osseous abnormalities are identified. Soft tissues: No acute soft tissue abnormalities are identified. IMPRESSION: 1. Diffuse peripancreatic inflammation and edema most consistent with acute pancreatit is. There is no evidence of pancreatic duct dilatation. There is a calcification in the pancreatic he ad similar when compared to the prior study. The previously noted cystic lesion in the region of the pancreatic tail is not well delineated on this examination and has likely resolved. 2. Fatty infiltration of the liver. 3. Remote cholecystectomy with stable dilatation of the common bile duct likely physiologic in natu re following cholecystectomy. 4. Mild duodenal wall thickening likely related to surrounding peripancreatic inflammatory changes. 5. Mildly prominent retroperitoneal nodes, similar to the prior study which are likely reactive and inflammatory in nature. 6. Occasional colonic diverticulosis. Electronically signed by: January Balderas DO 10/15/2021 1:13 AM CDT Due to temporary technical issues with the PACS/Fluency reporting system, reports are being signed by the in house radiologists without review as a courtesy to insure prompt reporting. The interpreting radiologist is fully responsible for the content of the report.
--- NOTE | 2021-10-15 13:44 | EKG ---
Test Date: 2021-10-14 Test Time: 23:40:39 Forensic Science Examiner: LL MEASUREMENT RESULTS: Intervals: Rate: 69 AR: 130 QRSD: 90 QT: 400 QTc: 428 Mcdonough: P: 47 AR: 130 QRS: 36 T: 19 INTERPRETIVE STATEMENTS: Normal sinus rhythm Nonspecific T wave abnormality Abnormal ECG Compared to ECG 03/06/2020 20:41:23 T-wave abnormality now present Electronically Signed On 10-15-21 13:43:06 CDT by Ramesh Machado
--- NOTE | 2021-10-15 14:26 | P.PN ---
Subjective Date of Service: 10/15/21 Patient is clinically doing well. Symptoms are improving. Patient denies any new complaints. Review of Systems 10-point ROS is otherwise unremarkable Physical Examination - Vital Signs Temperature: 98.0 F Blood Pressure: 148/84 Pulse: 70 Respirations: 16 Pulse Ox (%): 99 - Physical Exam General: Alert, In no apparent distress HEENT: Atraumatic, PERRLA, EOMI Neck: Supple, JVD not distended Respiratory: Clear to auscultation bilaterally, Normal air movement Cardiovascular: Regular rate/rhythm, Normal S1 S2 Gastrointestinal: Normal bowel sounds, No tenderness Musculoskeletal: No tenderness Integumentary: No rashes Neurological: Normal speech, Normal tone, Normal affect Lymphatics: No axilla or inguinal lymphadenopathy - Studies Laboratory Data (last 24 hrs) 10/14/21 22:55: Sodium 136, Potassium 3.7, BUN 16, Creatinine 0.93, Glucose 251 H, Total Bilirubin 0.6, AST 32, ALT 50, Alkaline Phosphatase 51, Lipase 9877 H 10/14/21 22:55: WBC 9.2, Hgb 13.3 L, Hct 39.4 L, Plt Count 205 Medications List Reviewed: Yes Assessment & Plan - Problems (Diagnosis) (1) Acute pancreatitis Current Visit: Yes Status: Acute Qualifiers: Pancreatitis type: other Acute pancreatitis complication: no infection or necrosis Qualified Code(s): K85.80 - Other acute pancreatitis without necrosis or infection (2) Diabetes mellitus Current Visit: Yes Status: Chronic Qualifiers: Diabetes mellitus type: type 2 Diabetes mellitus intermediate manager insulin use: with penitentiary use Diabetes mellitus complication status: with hyperglycemia Qualified Code(s): E11.65 - Type 2 diabetes mellitus with hyperglycemia; Z79.4 - prison (current) use of insulin (3) Fatty liver Current Visit: Yes Status: Chronic (4) Hypertriglyceridemia Current Visit: Yes Status: Chronic - Plan -IV antibiotics -IV fluids -GI consultation -CBC, CMP, lipase -N.p.o. -Repeat abdominal film -Antiemetics Discharge Plan: Home Plan to discharge in: Greater than 2 days - Advance Directives Does patient have a Living Will: No Does patient have a Durable POA for Healthcare: No - Code Status/Comfort Care Code Status Assessed: Yes Code Status: Full Code Critical Care: No Time Spent Managing PTS Care (In Minutes): 45
[2021-10-15] MEDS: HYDROCODONE/APAP 10/325 TAB PO PRN ×2 (15:04→23:07)
[2021-10-15] MEDS: ONDANSETRON 4 MG/2 ML VIAL IV PRN (16:41)
[2021-10-16] MEDS: HYDROMORPHONE HCL 1 MG/ML INJ IV PRN ×6 (01:01→22:02)
[2021-10-16] MEDS: ONDANSETRON 4 MG/2 ML VIAL IV PRN ×2 (01:03→10:57)
[2021-10-16] MEDS: NA CHLORIDE 0.9% 1,000 ML IV SCH ×4 (01:06→22:03)
[2021-10-16] MEDS: HYDROCODONE/APAP 10/325 TAB PO PRN ×2 (03:22→08:08)
[2021-10-16 06:17] LABS: Absolute Lymphocytes (CBC) 1.1 K/uL (0.7-4.9); Hematocrit 32.6 % (39.6-49.0); Lymphocytes % 16.1 % (15.3-44.8); MCV 81.9 fL (80-100); MPV 8.8 fL (7.6-11.3); RBC Red Blood Cell Count 3.98 M/uL (4.33-5.43)
[2021-10-16 06:30] LABS: Albumin 3.2 g/dL (3.4-5.0); Bilirubin Total 1.7 mg/dL (0.2-1.0); Magnesium 1.9 mg/dL (1.8-2.4); Phosphorus 2.2 mg/dL (2.5-4.9); Potassium 3.6 mmol/L (3.5-5.1); Protein, Total 6.7 g/dL (6.4-8.2)
[2021-10-16] MEDS: INSULIN -REGULAR HUMAN 50 UNIT/0.5 ML ML SQ SCH ×4 (07:30→22:12)
[2021-10-16] MEDS: ENOXAPARIN 40 MG/0.4 ML SQ SCH (08:08)
[2021-10-16] MEDS ORDERED: POTASSIUM CL SA 10 MEQ TAB PO ONE (09:00)
--- NOTE | 2021-10-16 12:47 | P.PN ---
Date of Service: 10/16/21 Subjective Patient has some nausea and vomiting today. Lipase has decreased to 1000. We will hold off on clear liquids until a.m. Review of Systems 10-point ROS is otherwise unremarkable Physical Examination - Vital Signs reviewed - Physical Exam General: Alert, In no apparent distress Respiratory: Clear to auscultation bilaterally, Normal air movement Cardiovascular: Regular rate/rhythm, Normal S1 S2 Gastrointestinal: Normal bowel sounds, No tenderness Musculoskeletal: No tenderness Neurological: Normal speech, Normal tone, Normal affect Assessment & Plan - Problems (Diagnosis) (1) Acute pancreatitis Current Visit: Yes Status: Acute Qualifiers: Pancreatitis type: other Acute pancreatitis complication: no infection or necrosis Qualified Code(s): K85.80 - Other acute pancreatitis without necrosis or infection (2) Diabetes mellitus Current Visit: Yes Status: Chronic Qualifiers: Diabetes mellitus type: type 2 Diabetes mellitus [facility] insulin use: with termite control servicer use Diabetes mellitus complication status: with hyperglycemia Qualified Code(s): E11.65 - Type 2 diabetes mellitus with hyperglycemia; Z79.4 - [facility] (current) use of insulin (3) Fatty liver Current Visit: Yes Status: Chronic (4) Hypertriglyceridemia Current Visit: Yes Status: Chronic - Plan Continue with plan of care as mentioned below: -Lipase down to 1000; clear liquid diet in the morning -IV fluids -GI consultation -CBC, CMP, lipase -N.p.o.; advance to clear liquid diet in the morning -Repeat abdominal film if necessary -Antiemetics Discharge Plan: Home Plan to discharge in: Greater than 2 days - Advance Directives Does patient have a Living Will: No Does patient have a Durable POA for Healthcare: No - Code Status/Comfort Care Code Status Assessed: Yes Code Status: Full Code Critical Care: No Time Spent Managing PTS Care (In Minutes): 45
[2021-10-16] MEDS: clonazePAM 0.5 MG TAB PO SCH ×2 (13:52→22:03)
[2021-10-17 03:25] VITALS: BMI 28.8
[2021-10-17] MEDS: NA CHLORIDE 0.9% 1,000 ML IV SCH ×6 (04:27→22:23)
[2021-10-17] MEDS: HYDROMORPHONE HCL 1 MG/ML INJ IV PRN ×5 (04:29→22:19)
[2021-10-17] MEDS: ONDANSETRON 4 MG/2 ML VIAL IV PRN ×4 (04:33→18:00)
[2021-10-17] MEDS: INSULIN -REGULAR HUMAN 50 UNIT/0.5 ML ML SQ SCH ×4 (06:00→20:36)
[2021-10-17 06:24] LABS: Absolute Lymphocytes (CBC) 0.9 K/uL (0.7-4.9); Hematocrit 30.3 % (39.6-49.0); Lymphocytes % 22.5 % (15.3-44.8); MCV 80.4 fL (80-100); MPV 8.8 fL (7.6-11.3); RBC Red Blood Cell Count 3.77 M/uL (4.33-5.43)
[2021-10-17 06:30] LABS: Albumin 2.9 g/dL (3.4-5.0); Bilirubin Total 0.9 mg/dL (0.2-1.0); Potassium 3.4 mmol/L (3.5-5.1); Protein, Total 6.4 g/dL (6.4-8.2)
[2021-10-17] MEDS ORDERED: POTASSIUM 25 MEQ EFFERV TAB PO ONE ×2 (09:00)
[2021-10-17] MEDS: ENOXAPARIN 40 MG/0.4 ML SQ SCH (09:12)
[2021-10-17] MEDS: clonazePAM 0.5 MG TAB PO SCH ×3 (09:12→20:36)
--- NOTE | 2021-10-17 12:37 | P.PN ---
Date of Service: 10/17/21 Subjective Patient's clinical symptoms continue to improve. Pain is better controlled. Review of Systems 10-point ROS is otherwise unremarkable Physical Examination - Vital Signs reviewed - Physical Exam General: Alert, In no apparent distress Respiratory: Clear to auscultation bilaterally, Normal air movement Cardiovascular: Regular rate/rhythm, Normal S1 S2 Gastrointestinal: Normal bowel sounds, No tenderness Musculoskeletal: No tenderness Neurological: Normal speech, Normal tone, Normal affect Assessment & Plan - Problems (Diagnosis) (1) Acute pancreatitis Current Visit: Yes Status: Acute Qualifiers: Pancreatitis type: other Acute pancreatitis complication: no infection or necrosis Qualified Code(s): K85.80 - Other acute pancreatitis without necrosis or infection (2) Diabetes mellitus Current Visit: Yes Status: Chronic Qualifiers: Diabetes mellitus type: type 2 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: wi th marine oil terminal superintendent use Diabetes mellitus complication status: with hyperglycemia Qualified Code(s): E11.65 - Type 2 diabetes mellitus with hyperglycemia; Z79.4 - correction (current) use of insulin (3) Fatty liver Current Visit: Yes Status: Chronic (4) Hypertriglyceridemia Current Visit: Yes Status: Chronic - Plan Continue with plan of care as mentioned below: - Continue with clear liquid diet and slowly advance as tolerated -IV fluids -GI consultation -CBC, CMP, lipase - started Creon and continue with oral medications for hypertriglyceridemia -Repeat abdominal film if necessary -Antiemetics Discharge Plan: Home Plan to discharge in: Greater than 2 days - Advance Directives Does patient have a Living Will: No Does patient have a Durable POA for Healthcare: No - Code Status/Comfort Care Code Status Assessed: Yes Code Status: Full Code Critical Care: No Time Spent Managing PTS Care (In Minutes): 45
[2021-10-18] MEDS: NA CHLORIDE 0.9% 1,000 ML IV SCH ×5 (01:29→18:17)
[2021-10-18] MEDS: HYDROMORPHONE HCL 1 MG/ML INJ IV PRN ×5 (03:20→23:16)
[2021-10-18 06:46] LABS: Absolute Lymphocytes (CBC) 1.2 K/uL (0.7-4.9); Hematocrit 31.4 % (39.6-49.0); Lymphocytes % 25.3 % (15.3-44.8); MCV 79.9 fL (80-100); MPV 8.5 fL (7.6-11.3); RBC Red Blood Cell Count 3.92 M/uL (4.33-5.43)
[2021-10-18 06:59] LABS: Potassium 3.5 mmol/L (3.5-5.1)
[2021-10-18] MEDS: INSULIN -REGULAR HUMAN 50 UNIT/0.5 ML ML SQ SCH ×4 (07:30→21:00)
[2021-10-18] MEDS ORDERED: POTASSIUM CL SA 10 MEQ TAB PO ONE ×2 (08:25→08:38)
[2021-10-18] MEDS: ENOXAPARIN 40 MG/0.4 ML SQ SCH (08:32)
[2021-10-18] MEDS: clonazePAM 0.5 MG TAB PO SCH ×3 (08:32→21:26)
[2021-10-18] MEDS ORDERED: POTASSIUM 25 MEQ EFFERV TAB PO ONE (09:00)
--- NOTE | 2021-10-18 14:51 | RAD REPORT ---
EXAM DESCRIPTION: CTAbdomen Pelvis W Contrast - 10/18/2021 2:39 pm CLINICAL HISTORY: Abdominal pain. PANCREATITIS COMPARISON: Abdomen Pelvis W Contrast dated 10/15/2021; Abdomen Pelvis W Contrast dated 03/09/2021 ; Abdomen Pelvis W Contrast dated 04/28/2020; Abdomen Pelvis W Contrast dated 03/07/2020; Abdomen Pelvis W Contrast dated 09/05/2016 TECHNIQUE: Biphasic CT imaging of the abdomen and pelvis was performed with 100 ml non-ionic IV cont rast. All CT scans are performed using dose optimization technique as appropriate and may include automated exposure control or mA/KV adjustment according to patient size. FINDINGS: The lung bases are clear.Cholecystectomy clips. Mild diffuse fatty liver. The spleen, adrenal glands and kidneys are within normal limits. Edematous and inflamed appearance to the pancreatic head/ uncinate process region seen. Thickening of the trans verse duodenum also seen adjacent to region. No pseudocyst, necrosis or portal vein thrombus seen. No bowel obstruction, free air, significant volume of free fluid or abscess. Mild sigmoid diverticulo sis coli without diverticulitis. The appendix is normal. No evidence of significant lymphadenopathy. No suspicious bony findings. IMPRESSION: Mild edema of the pancreatic head and uncinate process noted compatible with mild uncomp licated acute pancreatitis.
[2021-10-18] MEDS ORDERED: TRAMADOL HCL 50 MG TAB PO PRN (15:20)
[2021-10-18] MEDS ORDERED: GLUCAGON 1 MG/VIAL IM PRN (15:21)
[2021-10-18] MEDS ORDERED: DEXTROSE 10%-WATER 500 ML IV BAG IV PRN (15:47)
[2021-10-18] MEDS ORDERED: HYDROCORTISONE SUC 100 MG INJ IV ONE (16:00)
[2021-10-18] MEDS: METOCLOPRAMIDE 10 MG/2mL INJ IV SCH ×2 (16:30→21:26)
[2021-10-18] MEDS ORDERED: INSULIN 70/30 100 UNITS/ML SQ SCH (17:00)
[2021-10-18] MEDS: AMYLASE/LIPASE/PROTEASE CAP PO SCH ×2 (18:17→21:25)
[2021-10-18] MEDS ORDERED: HOME MED 1 EA UNK (Metoclopramide Hcl [Reglan] 10 MG Tablet) PO SCH (21:00)
[2021-10-18] MEDS ORDERED: HYDROCORTISONE SUC 100 MG INJ IV SCH (21:00)
[2021-10-18] MEDS: METOCLOPRAMIDE 5 MG TAB PO SCH (21:25)
[2021-10-18] MEDS: DOCOSAHEXANOIC AC/EPA 1000 MG PO SCH (21:25)
[2021-10-18] MEDS: gemfibroziL 600 MG TAB PO SCH (21:26)
[2021-10-19] MEDS: NA CHLORIDE 0.9% 1,000 ML IV SCH ×4 (00:59→14:23)
[2021-10-19 07:22] LABS: Potassium 3.9 mmol/L (3.5-5.1)
[2021-10-19] MEDS: INSULIN -REGULAR HUMAN 50 UNIT/0.5 ML ML SQ SCH ×2 (07:30→11:30)
[2021-10-19] MEDS: METOCLOPRAMIDE 5 MG TAB PO SCH (09:00)
[2021-10-19] MEDS ORDERED: INSULIN DEGLUDEC 200 UNIT/ML SQ SCH (09:00)
[2021-10-19] MEDS ORDERED: INSULIN P SQ SCH (09:00)
[2021-10-19] MEDS ORDERED: PANTOPRAZOLE 40MG TABLET PO SCH (09:00)
[2021-10-19] MEDS ORDERED: [UNRECOGNIZED DRUG - OTHER] SQ SCH (09:00)
[2021-10-19] MEDS ORDERED: HOME MED 1 EA UNK (Fenofibrate,Micronized [Fenofibrate] 200 MG Capsule) PO SCH (09:00)
[2021-10-19] MEDS: ENOXAPARIN 40 MG/0.4 ML SQ SCH (10:10)
[2021-10-19] MEDS: AMYLASE/LIPASE/PROTEASE CAP PO SCH ×2 (10:10→13:04)
[2021-10-19] MEDS: DOCOSAHEXANOIC AC/EPA 1000 MG PO SCH (10:10)
[2021-10-19] MEDS: clonazePAM 0.5 MG TAB PO SCH ×2 (10:11→13:04)
[2021-10-19] MEDS: gemfibroziL 600 MG TAB PO SCH (10:11)
[2021-10-19] MEDS: METOCLOPRAMIDE 10 MG/2mL INJ IV SCH ×2 (10:11→13:04)
[2021-10-19] MEDS: HYDROMORPHONE HCL 1 MG/ML INJ IV PRN (10:11)
[2021-10-19 10:44] VITALS: O2SAT 99
[2021-10-19] MEDS ORDERED: POTASSIUM CL SA 10 MEQ TAB PO ONE (12:00)
[2021-10-28 03:56] VITALS: BP 148/84; TEMP 98
--- NOTE | 2021-10-28 03:57 | P.PN ---
Date of Service: 10/18/21 Subjective patient's imaging studies do not reveal any worsening of pancreatitis. Patient with improvement. Anticipating discharge home. Review of Systems 10-point ROS is otherwise unremarkable Physical Examination - Vital Signs reviewed - Physical Exam General: Alert, In no apparent distress Respiratory: Clear to auscultation bilaterally, Normal air movement Cardiovascular: Regular rate/rhythm, Normal S1 S2 Gastrointestinal: Normal bowel sounds, No tenderness Musculoskeletal: No tenderness Neurological: Normal speech, Normal tone, Normal affect Assessment & Plan - Problems (Diagnosis) (1) Acute pancreatitis Current Visit: Yes Status: Acute Qualifiers: Pancreatitis type: other Acute pancreatitis complication: no infection or necrosis Qualified Code(s): K85.80 - Other acute pancreatitis without necrosis or infection (2) Diabetes mellitus Current Visit: Yes Status: Chronic Qualifiers: Diabetes mellitus type: type 2 Diabetes mellitus continuous churn buttermaker insulin use: with continuous churn buttermaker use Diabetes mellitus complication status: with hyperglycemia Qualified Code(s): E11.65 - Type 2 diabetes mellitus with hyperglycemia; Z79.4 - terminal operations manager (current) use of insulin (3) Fatty liver Current Visit: Yes Status: Chronic (4) Hypertriglyceridemia Current Visit: Yes Status: Chronic - Plan Continue with plan of care as mentioned below: -Advancing diet as tolerated. Physical symptoms continue to improve. Anticipate discharge in the morning. -IV fluids -GI consultation -CBC, CMP, lipase -started Creon and continue with oral medications for hypertriglyceridemia -Repeat abdominal film if necessary -Antiemetics Discharge Plan: Home Plan to discharge in: Greater than 2 days - Advance Directives Does patient have a Living Will: No Does patient have a Durable POA for Healthcare: No - Code Status/Comfort Care Code Status Assessed: Yes Code Status: Full Code Critical Care: No Time Spent Managing PTS Care (In Minutes): 45
--- NOTE | 2021-10-28 03:59 | P.DS ---
Discharge Date: 10/19/21 Primary Care Provider: Garfield Disposition: ROUTINE DISCHARGE Discharge Condition: GOOD Reason for Admission: Acute on Chronic Pancreatitis - Problems (1) Acute pancreatitis Status: Acute Qualifiers: Pancreatitis type: other Acute pancreatitis complication: no infection or necrosis Qualified Code(s): K85.80 - Other acute pancreatitis without necrosis or infection (2) Diabetes mellitus Status: Chronic Qualifiers: Diabetes mellitus type: type 2 Diabetes mellitus intermediate accountant insulin use: with longterm use Diabetes mellitus complication status: with hyperglycemia Qualified Code(s): E11.65 - Type 2 diabetes mellitus with hyperglycemia; Z79.4 - tank terminal gauger (current) use of insulin (3) Fatty liver Status: Chronic (4) Hypertriglyceridemia Status: Chronic Brief History of Present Illness: Patient is a 46-year-old male with insulin-dependent diabetes mellitus, chronic pancreatitis secondary to hypertriglyceridemia, and fatty liver who presented to the ED with complaints of abdominal pain. Patient reports that this abdominal pain feels different from his similar episodes of pancreatitis. He reports the pain is located in his epigastric region and radiates to his back and chest. His vital signs are stable. Labs significant for lipase 9877 (highest it has ever been per chart review). Glucose 251. CT abdomen pelvis showed diffuse peripancreatic inflammation and edema most consistent with acute pancreatitis. There is no evidence of pancreatic duct dilation. He was given fluids, morphine, Zofran, and Dilaudid in the ED with some improvement in pain. Patient is admitted for further evaluation and treatment. Hospital Course: Patient is doing well. Pain control. Continue with medication for hypertriglyceridemia and chronic pancreatitis. Patient is clinically doing well and at this time patient is stable for discharge home. Vital Signs/Physical Exam: Temp Pulse Resp BP Pulse Ox 98.0 F 70 16 148/84 H 99 10/28/21 03:55 10/28/21 03:55 10/28/21 03:55 10/28/21 03:55 10/28/21 03:55 General: Alert, In no apparent distress, Oriented x3 Laboratory Data at Discharge: WBC 4.6 K/uL (4.3-10.9) 10/18/21 06:16 Hgb 11.1 g/dL (13.6-17.9) L 10/18/21 06:16 Hct 31.4 % (39.6-49.0) L 10/18/21 06:16 Plt Count 187 K/uL (152-406) 10/18/21 06:16 Sodium 141 mmol/L (136-145) 10/19/21 06:58 Potassium 3.9 mmol/L (3.5-5.1) 10/19/21 06:58 BUN 8 mg/dL (7-18) 10/19/21 06:58 Creatinine 0.64 mg/dL (0.55-1.3) 10/19/21 06:58 Glucose 133 mg/dL (74-106) H 10/19/21 06:58 Phosphorus 2.2 mg/dL (2.5-4.9) L 10/16/21 06:06 Magnesium 2.0 mg/dL (1.8-2.4) 10/17/21 05:45 Total Bilirubin 0.9 mg/dL (0.2-1.0) 10/17/21 05:45 AST 114 U/L (15-37) H 10/17/21 05:45 ALT 154 U/L (12-78) H 10/17/21 05:45 Alkaline Phosphatase 189 U/L (45-117) H 10/17/21 05:45 Triglycerides 202 mg/dL (<150) H 10/15/21 03:54 Cholesterol 244 mg/dL (<200) H 10/15/21 03:54 HDL Cholesterol 41 mg/dL (40-60) 10/15/21 03:54 Cholesterol/HDL Ratio 5.95 10/15/21 03:54 Lipase 329 U/L (73-393) 10/18/21 06:16 Home Medications: Insulin Degludec [Tresiba Flextouch U-200] 30 units SQ DAILY 11/01/19 Metformin HCl 1,000 mg PO BID 03/07/20 Pantoprazole Sodium [Protonix] 40 mg PO DAILY 03/07/20 Insulin NPH Human Isophane [Novolin N Flexpen] 20 units SQ BID 03/11/21 Docosahexanoic AC/Epa [Fish Oil 1,000 MG*] 2,000 mg PO BID #120 cap 03/13/21 Fenofibrate,Micronized [Fenofibrate] 200 mg PO DAILY #30 03/13/21 gemfibroziL [Lopid*] 600 mg PO BID #60 tab 03/13/21 traMADol HCL [Ultram*] 50 mg PO TID PRN #10 tab 03/13/21 Metoclopramide HCl [Reglan] 10 mg PO TID 10/15/21 Brigitte/Cell/Lipas/Malt/Prt/Lac/in [Digestive Enzymes Capsule] 1 each PO TID #90 10/19/21 Hydrocodone 10/APAP 325 [[place] 10/325] 1 tab PO Q6H PRN #30 tab 10/19/21 Lipase/Protease/Amylase [Creon 5 EC Capsule] 124 mg PO AC #90 10/19/21 clonazePAM [Klonopin] 0.5 mg PO TID #90 10/19/21 clonazePAM [Klonopin] 0.5 mg PO TID #90 10/19/21 New Medications: Lipase/Protease/Amylase [Creon 5 EC Capsule] 124 mg PO AC #90 Brigitte/Cell/Lipas/Malt/Prt/Lac/in [Digestive Enzymes Capsule] 1 each PO TID #90 clonazePAM [Klonopin] 0.5 mg PO TID #90 clonazePAM [Klonopin] 0.5 mg PO TID #90 Hydrocodone 10/APAP 325 [[place] 10/325] 1 tab PO Q6H PRN #30 tab PRN Reason: Pain Physician Discharge Instructions: OK TO DC IV AND DC HOME FOLLOW-UP WITH PRIMARY CARE PROVIDER IN 1-2 WEEKS FOLLOW-UP WITH Gas Maker IN 1-2 WEEKS RETURN TO THE ER IF symptoms worsen CALL DR. BLANCA AT [phone] IF ANY QUESTIONS REGARDING HOSPITAL STAY. PLEASE CALL THE FLOOR AT [phone] IF ANY MEDICATION OR NURSING QUESTIONS. Diet: Low-fat Activity: Fall precautions Followup: Erwin Merrill DO, DO [Primary Care Provider] - 1 Week (Please call to make an appointment. ) Time spent managing pt's care (in minutes): 35
== END 2021-10-19 16:31 | disposition home or self-care (01) | DRG 440 ==
LOC: ER 22:02 → ERHOLD 10-15 02:41 → 2ND 10-15 08:06
PROVIDERS: ADMIT Hospitalist; ATTEND Hospitalist
DX: K85.90 Acute pancreatitis without necrosis or infection, unspecified (principal); E11.65 Type 2 diabetes mellitus with hyperglycemia; K76.0 Fatty (change of) liver, not elsewhere classified; E78.1 Pure hyperglyceridemia; K86.1 Other chronic pancreatitis; Z79.4 Long term (current) use of insulin; Z20.822 Contact with and (suspected) exposure to COVID-19
CPT/HCPCS: 36415; 74177; 80048; 80053; 80061; 81003; 82947; 83036; 83605; 83690; 83735; 84100; 85025; 87811; 93005; 96374; 96375; 99285; J1170; J1650; J1720; J1815; J2405; J2765; J7030; Q9967

== ENCOUNTER 2022-03-19 23:28 | Inpatient (IN) | payer OTHER ==
--- OUTSIDE RECORDS SUMMARY | 2022-03-19 23:33 | XMS REPORT | Continuity of Care Document ---
:1975 Author Organization [facility] t Address [address] [place] [address] Care Team Providers Name Role Phone Jaspreet ENNIS, Shawna Randle Primary Care Physician [phone] Joann CHARLES, Alla Anderson Attending Clinician VERNON CARLOS Attending Clinician Unavailable Lizabeth MELTONP, Carlos F Attending Clinician [place] Antonio MD Attending Clinician Vinay MELGAR, Anupam G Attending Clinician Vernon Carlos DO Attending Clinician Only, Alex Db Test Attending Clinician Unavailable Estee Reis Attending Clinician ESTEE KAUFFMAN Attending Clinician Unavailable Nurse, [facility] Attending Clinician Unavailable Sami CHARLES, Jana Arevalo Attending Clinician Unavailable Britta Griffin MD Attending Clinician BRITTA GRIFFIN Attending Clinician Unavailable Doctor Unassigned, [place] Attending Clinician Unavailable SALINAS ANTONIO Admitting Clinician Unavailable [place] Antonio MD Admitting Clinician Payers Payer Name Policy Type Policy Number Effective Date Expiration Date S ource Problems Condition Condition Condition Status Onset Resolution Last Treating Co mments Source Name Details Category Date Date Treatment Clinician Date Obesity Obesity Disease Active 2021- Univers (BMI (BMI 5-09 ity of 30-39.9) 30-39.9) 00:00: [place] 00 Medical Branch Acute on Acute on [...] yceridemia yceridemia 2-05 it y of 00:00: [place] 00 [facility] Allergies, Adverse Reactions, Alerts Allergy Allergy Status Severity Reaction(s) Onset Inactive Treating Comm ents Source Name Type Date Date Clinician NO KNOWN Drug Active Univers ALLERGIE Class ity of [facility] Social History Social Habit Start Date Stop Date Quantity Comments Source Exposure to 2021-07-06 2021-07-16 Not sure [facility] SARS-CoV-2 (event) 00:00:00 07:16:00 Medica l [place] Tobacco use and 2017-08-12 2017-08-12 Never used [facility] exposure 00:00:00 00:00:00 [facility] Sex Ass[birth year] [facility] 00:00:00 00:00:00 [facility] Smoking Status Start Date Stop Date Source Never smoker [facility] Medications Ordered Filled Start Stop Current Ordering Indication Dosage Frequency Signature Comments Components Source Medication Medication Date Date Medication? Clinician (SIG) Name Name insulin Yes [id number] 13U inject 13 U nivers degludec 5-14 Units ity of (TRESIBA 00:00: under the [facility] FLEXTOUCH 00 skin Medical U-200) 200 daily. Branch unit/mL (3 mL) InPn insulin Yes [id number] 1U inject 1 Un belkys lispro, 5-14 Units ity of human, 100 00:00: [place] the [place] unit/mL 00 skin Medical injection SEE-INSTRU Bran ch CTIONS. rosuvastati Yes [id number] 40mg Take 2 Univers n (CRESTOR) 5-14 tablets by it y of 20 mg 00:00: mouth at [place] tablet 00 bedtime. Medical Branch LOVAZA, Yes [id number] 2g Take 2 Univ ers omega-3-aci 5-14 capsules ity of d ethyl 00:00[place] esters, 1 00 (two) Medical gram times Branch capsule daily. insulin Yes [id number] 13U inject 13 U nivers degludec 5-14 Units ity of (TRESIBA 00:[place] FLEXTOUCH 00 skin Medical U-200) 200 daily. Branch unit/mL (3 mL) InPn insulin Yes [id number] 1U inject 1 Un belks[place] lispro, 5-14 Units ity of human, 100 00:00: [place] unit/mL 00 skin Medical injection SEE-INSTRU Bran ch CTIONS. rosuvastati Yes [id number] 40mg Take 2 Univers n (CRESTOR) 5-14 tablets by it y of 20 mg 00:00: mouth at [place] tablet 00 bedtime. [facility], Yes [id number] 2g Take 2 Univ ers omega-3-aci 5-14 capsules ity of d ethyl 00:00: [place] esters, 1 00 (two) Medical gram times Branch capsule daily. insulin Yes [id number] 13U inject 13 U nivers degludec 5-14 Units ity of (TRESIBA 00:00: [place] FLEXTOUCH 00 skin Medical U-200) 200 daily. Branch unit/mL (3 mL) In insulin Yes [id number] 1U inject 1 Un belkys lispro, 5-14 Units ity of human, 100 00:00: under the [place] unit/mL 00 skin Medical injection SEE-INSTRU Bran ch CTIONS. rosuvastati Yes [id number] 40mg Take 2 Univers n (CRESTOR) 5-14 tablets by it y of 20 mg 00:00: mouth at [place] tablet 00 bedtime. [facility], Yes [id number] 2g Take 2 Univ ers omega-3-aci 5-14 capsules ity of d ethyl 00:00: [place] esters, 1 00 (two) Medical gram times Branch capsule daily. insulin 2021- No [id number] 1U inject 1 U nivers lispro, 5-14 05-14 Units ity of human, 100 00:00: 00:00 under the [place] unit/mL 00 :00 skin Medical injection SEE-INSTRU Bran ch CTIONS. morpHINE (2 Yes 2mg 2 mg, Slow Univers mg/mL) 07-20 IV Push, ity of injection 2 13:58: Q6HPRN, [place] mg [address] [facility] Branch 07/20/21 at 0858, Until Discontinu ed, Routine, Pain (scale 7-10), breakthr gh pain KCL 2021- No 40meq 40 mEq, Univers (KLOR-CON 07-20 Oral, ity of M20) tablet 13:15: 14:06 ONCE, 1 [place] 40 mEq 00 :00 dose, On Medical [facility] Branch 07/20/21 at 0815, Routine magnesium 2021- No 4g 4 g, IV Univ ers sulfate in 07-20 Piggyback, it y of water 4 13:15: 14:08 ONCE, 1 [place] gram/50 mL 00 :00 dose, On Medic al (8 %) IV [facility] Branch Piggyback 4 07/20/21 at g 0815, Routine Sliding Yes Subcutaneo Univ ers Scale 5-12 us, TID ity of Insulin - 17:00: MEALS+HS, [place] Lispro 00 First dose Medical (HumaLOG) + (after Branch Fsbg last Testing modificati on) on [facility] 07/19/21 at 1200, Until Discontinu ed, Routine KCL 2021- No 40meq 40 mEq, Univers (KLOR-CON 07-19 Oral, ity of M20) tablet 16:45: 18:07 ONCE, 1 [place] 40 mEq 00 :00 dose, On Medical [facility] Branch 07/19/21 at 1145, Routine insulin 2021-0 Yes 13U 13 Units, Unive rs glargine 07-19 Subcutaneo ity o f (LANTUS 14:30: us, DAILY, [place] U-100) 00 First dose Medical injection (after Branch 13 Units last modificati on) on [facility] 07/19/21 at 0930, Until Discontinu ed, Routine polyethylen Yes 17g 17 g, Unive rs e glycol 5-12 Oral, ity of 3350 powder 14:30: DAILY, [place] 17 g 00 First dose Medical on [place] Branch 07/19/21 at 0930, Until Discontinu ed, Routine HYDROmorpho 2021- No .5mg 0.5 mg, Un belkys ne 07-19 05-13 Slow IV ity of (DILAUDID) 14:30: 13:58 [...] 04 Starting Medica l tablet 1 on [place] Branch tablet 07/19/21 at 0804, Until Discontinu ed, Routine, Pain (scale 4-6) icosapent 2021- No [id number] 2g Take 2 Univers ethyL 5-12 06-12 capsules ity of (VASCEPA) 1 00:00: 04:59 by mouth 2 [place] gram 00 :00 (two) Medical capsule times Branch daily with meals for 30 days. icosapent 2021- No [id number] 2g Take 2 Univers ethyL 5-12 06-12 capsules ity of (VASCEPA) 1 00:00: 04:59 by mouth 2 [place] gram 00 :00 (two) Medical capsule times Branch daily with meals for 30 days. icosapent 2021- No [id number] 2g Take 2 Univers ethyL 5-12 06-12 [...] Fri Branch 07/18/21 at 0915, Routine insulin 2021- No 22U 22 Units, Univ ers glargine [...] No 36U 36 Units, Univ ers glargine 5-10 05-11 Subcutaneo ity of (LANTUS 14:00: 13:35 us, DAILY, [place] U-100) 00 :27 First dose Medical injection on [place] Branch 36 Units 07/17/21 at 0900, Until Discontinu ed, Routine magnesium 2021- No 4g 4 g, IV Univ ers sulfate in 07-17 Piggyback, it y of water 4 13:15: 13:46 ONCE, 1 [place] gram/50 mL 00 :00 dose, On Medic al (8 %) IV e Branch Piggyback 4 07/17/21 at g 0815, [...] KIT) 15 Starting Medical injection 1 on Branch mg 07/17/21 at 0742, Until Discontinu ed, LENIN, Blood Glucose < or = 70 mg/dL and patient is unable to swallow or has mental changes. dextrose Yes 250mL 250 mL, IV Un belkys 10% (D10W) 5-10 Infusion, ity of bolus 12:42: PRN - SEE [place] infusion 15 INSTRUCTIO Medic al 250 mL [...] First dose [place] mg 00 on [facility] Medical 07/16/21 at Branch 2100, Until Discontinu ed, Routine LOVAZA Yes 2g 2 g, Oral, Unive rs (omega-3-ac 5-10 BID, First it y of id ethyl 01:00: dose on [place] esters) 00 Fri07/16/21 Medica l capsule 2 g at 2000, Bran ch Until Discontinu ed, Routine lactated 2021- No 1000mL at 100 Univ ers ringers IV 07-16 05-10 mL/hr, ity of infusion 23:00: 10:59 1,000 mL, [place] 1,000 mL 00 :00 IV Medical Infusion, [place] ONCE, 1 dose, On Fri07/16/21 at 1800, Routine D10W 10 % 2021- No at 50 Univer s IV infusion 07-16 05-10 mL/hr, IV it y of 22:49: 17:50 Infusion, [place] 28 :18 TITRATE, Medical Starting Branch on Fri07/16/21 at 1749, Until Fri07/17/21 at 1250, Routine ondansetron Yes 4mg 4 mg, Slow Univers (ZOFRAN 07-16 IV Push, ity of (PF)) 20:18: Q6HPRN, [place] injection 4 12 Nausea and Me dical mg Vomiting Branch (N/V), Starting on Fri07/16/21 at 1518
Do ses of ondansetro n 16 mg and above need to be administer ed via IV piggyback. For Dose >=24mg ECG monitoring is advisable.
fenofibrate Yes 134mg 134 mg, Un belkys micronized -09 Oral, ity of (LOFIBRA) 17:15: DAILY, [place] capsule 134 00 First dose Me dical mg on Fri Branch 07/16/21 at 1215, Until Discontinu ed, Routine HYDROmorpho 2021- No .5mg 0.5 mg, Un belkys ne 07-16 05-11 Slow IV ity of (DILAUDID) 15:45: 05:46 [...] 40 mg 00 First dose Medical on Fri Branch 07/16/21 at 0900, Until Discontinu ed, Routine D10W 10 % 2021- No at 50 Univer s IV infusion 07-16-09 mL/hr, IV it y of 13:55: 22:49 Infusion, [place] 58 :46 TITRATE, Medical Starting Branch on [...] Until Fri07/16/21 at 1004, Routine D5W IV 2021- No 1000mL at 100 Univer s infusion [...] f human 04:30: 12:44 r ?90.7 kg [place] (HUMULIN R) 00 :01 (9.07 Medical 100 [...] Starting Branch on Fri07/15/21 at 2218, Until Fri07/16/21 at 0911, Routine, Pain (scale 7-10)
U se approved by (Faculty): [facility] morpHINE (4 2021- No 4mg 4 mg, Slow Univers mg/mL) 07-16 IV Push, ity of injection 4 02:15: 01:01 ONCE, 1 [place] mg 00 :00 dose, On Medical [place] 07/15/21 Branch at 2115, STAT NaCl 0.9% 2021- No 1000mL at 999 Uni vers (NS) bolus 07-15 mL/hr, ity of infusion 23:15: 00:00 1,000 mL, [place] 1,000 mL 00 :00 IV Medical Piggyback, Branch ONCE, 1 dose, On [place] 07/15/21 at 1815, STAT morpHINE (4 2021- No 4mg 4 mg, Slow Univers mg/mL) 07-15 IV Push, ity of injection 4 23:15: 22:19 ONCE, 1 [place] mg 00 :00 dose, On [facility] 07/15/21 Branch at 1815, STAT iopamidol 2021- No [id number] 100mL 100 mL, Univers (ISOVUE 07-15 Intravenou [...] dose, On Branch 07/15/21 at 1630, Routine
front desk team member approving Restricted medication : CARLOS BURKS ondansetron [...] 1000mL at 999 Uni vers (NS) bolus 07-15- mL/hr, ity of infusion 21:30: 22:19 1,000 mL, [place] 1,000 mL 00 :00 IV Medical Infusion, Branch ONCE, 1 dose, On 07/15/21 at 1630, LENIN insulin 2019- Yes [id number] 30U inject 30 U nivers degludec 4-10 Units ity of (TRESIBA 00:00: [place] FLEXTOUCH 00 skin Medical U-200) 200 daily. Branch unit/mL (3 mL) InPn pioglitazon Yes [id number] 30mg Take 1 Univers e 30 mg 4-10 tablet by ity of tablet 00:00: mouth [place] 00 daily. Medical Branch insulin Yes [id number] 30U inject 30 U nivers degludec 4-10 Units ity of (TRESIBA 00:00: under the [employer] FLEXTOUCH 00 skin Medical U-200) 200 daily. Branch unit/mL (3 mL) InPn pioglitazon Yes [id number] 30mg Take 1 Univers e 30 mg 4-10 tablet by ity of tablet 00:00: mouth [place] 00 daily. Medical Branch insulin Yes [id number] 30U inject 30 U nivers degludec 4-10 Units ity of (TRESIBA 00:00: under the [employer] 00 skin Medical U-200) 200 daily. Branch unit/mL (3 mL) InPn pioglitazon Yes [id number] 30mg Take 1 Univers e 30 mg 4-10 tablet by ity of tablet 00:00: mouth [place] 00 daily. Medical Branch insulin Yes [id number] 30U inject 30 U nivers degludec 4-10 Units ity of (TRESIBA 00:00: under the [place] 00 skin Medical U-200) 200 daily. Branch unit/mL (3 mL) InPn pioglitazon Yes [id number] 30mg Take 1 Univers e 30 mg 4-10 tablet by ity of tablet 00:00: mouth [place] 00 daily. Medical Branch insulin Yes [id number] 30U inject 30 U nivers degludec 4-10 Units ity of (TRESIBA 00:00: under the [employer] FLEXTOUCH 00 skin Medical U-200) 200 daily. Branch unit/mL (3 mL) InPn pioglitazon Yes [id number] 30mg Take 1 Univers e 30 mg 4-10 tablet by ity of tablet 00:00: mouth [place] 00 daily. Medical Branch insulin 2- No [id number] 30U inject 30 Univers degludec 4-10 05-14 Units ity of (TRESIBA 00:00: 00:00 under the [place] FLEXTOUCH 00 :00 skin Medical U-200) 200 daily. Branch unit/mL (3 mL) InPn pioglitazon 2021- No [id number] 30mg Take 1 Univers e 30 mg [...] :00 bedtime. Medical Branch metFORMIN 2017-03 Yes [id number] 1000mg Take 1 Univers 1,000 mg 2-05 tablet by ity of tablet 00:00: mouth 2 [place] 00 (two) Medical times Branch daily with meals. Fenofibrate 2017-03 Yes [id number] 160mg Take 1 Univers 160 mg 2-05 tablet by ity of tablet 00:00: mouth [place] 00 daily. Medical Branch icosapent 2017-03 Yes [id number] 2g Take 2 U nivers ethyl 2-05 capsules ity of (VASCEPA) 1 00:00: by mouth 2 [place] gram 00 (two) Medical capsule times Branch daily with meals. Insulin 2017-03 Yes [id number] Use as Univ ers [place], 2-05 directed. ity of Disposable, 00:00: Once daily [place] (BETSY PEN 00 with Medical NEEDLE) 32 insulin Branch gauge x 5/32" Ndle metFORMIN 2017-03 Yes [id number] 1000mg Take 1 Univers 1,000 mg 2-05 tablet by ity of tablet 00:00: mouth 2 [place] 00 (two) Medical times Branch daily with meals. Fenofibrate 2017-03 Yes [id number] 160mg Take 1 Univers 160 mg 2-05 tablet by ity of tablet 00:00: mouth [place] 00 daily. Medical Branch icosapent 2017-03 Yes [id number] 2g Take 2 U nivers ethyl 2-05 capsules ity of (VASCEPA) 1 00:00: by mouth 2 [place] gram 00 (two) Medical capsule times Branch daily with meals. Insulin 2017-03 Yes [id number] Use as Univ ers [place], 2-05 directed. ity of Disposable, 00:00: Once daily [place] (BETSY PEN 00 with Medical NEEDLE) 32 insulin Branch gauge x 5/32" Ndle Insulin 2017-03 Yes [id number] Use as Univ ers [place], 2-05 directed. ity of Disposable, 00:00: Once daily [place] (BETSY PEN 00 with Medical NEEDLE) 32 insulin Branch gauge x 5/32" Ndle metFORMIN 2017-03 Yes [id number] 1000mg Take 1 Univers 1,000 mg 2-05 tablet by ity of tablet 00:00: mouth 2 [place] 00 (two) Medical times Branch daily with meals. Insulin 2017-03 Yes [id number] Use as Univ ers [place], 2-05 directed. ity of Disposable, 00:00: Once daily [place] (BETSY PEN 00 with Medical NEEDLE) 32 insulin Branch gauge x 5/32" Ndle Fenofibrate 2017-03 Yes [id number] 160mg Take 1 Univers 160 mg 2-05 tablet by ity of tablet 00:00: mouth [place] 00 daily. Medical Branch icosapent 2017-03 Yes [id number] 2g Take 2 U nivers ethyl 2-05 capsules ity of (VASCEPA) 1 00:00: by mouth 2 [place] gram 00 (two) Medical capsule times Branch daily with meals. Insulin 2017-03 Yes [id number] Use as Univ ers [place], 2-05 directed. ity of Disposable, 00:00: Once daily [place] (BETSY PEN 00 with Medical NEEDLE) 32 insulin Branch gauge x 5/32" Ndle metFORMIN 2017-03 Yes [id number] 1000mg Take 1 Univers 1,000 mg 2-05 tablet by ity of tablet 00:00: mouth 2 [place] 00 (two) Medical times Branch daily with meals. Fenofibrate 2017-03 Yes [id number] 160mg Take 1 Univers 160 mg 2-05 tablet by ity of tablet 00:00: mouth [place] 00 daily. Medical Branch icosapent 2017-03 Yes [id number] 2g Take 2 U nivers ethyl 2-05 capsules ity of (VASCEPA) 1 00:00: by mouth 2 [place] gram 00 (two) Medical capsule times Branch daily with meals. Insulin 2017-03 Yes [id number] Use as Univ ers [place], 2-05 directed. ity of Disposable, 00:00: Once daily [place] (BETSY PEN 00 with Medical NEEDLE) 32 insulin Branch gauge x 5/32" Ndle metFORMIN 2017-03 Yes [id number] 1000mg Take 1 Univers 1,000 mg 2-05 tablet by ity of tablet 00:00: mouth 2 [place] 00 (two) Medical times Branch daily with meals. Fenofibrate 2017-03 Yes [id number] 160mg Take 1 Univers 160 mg 2-05 tablet by ity of tablet 00:00: mouth [place] 00 daily. Medical Branch icosapent 2017-03 Yes [id number] 2g Take 2 U nivers ethyl 2-05 capsules ity of (VASCEPA) 1 00:00: by mouth 2 [place] gram 00 (two) Medical capsule times Branch daily with meals. Insulin 2017-03 Yes [id number] Use as Univ ers [place], 2-05 directed. ity of Disposable, 00:00: Once daily [place] (BETSY PEN 00 with Medical NEEDLE) 32 insulin Branch gauge x 5/32" Ndle Insulin 2017-03 Yes [id number] Use as Univ ers [place], 2-05 directed. ity of Disposable, 00:00: Once daily [place] (BETSY PEN 00 with Medical NEEDLE) 32 insulin Branch gauge x 5/32" Ndle metFORMIN 2017-03- No [id number] 1000mg Take 1 Univers 1,000 mg 2-05 05-14 tablet by ity o f tablet 00:00: 00:00 mouth 2 [place] 00 :00 (two) Medical times Branch daily with meals. Fenofibrate 2017-03- No [id number] 160mg Take 1 Univers 160 mg 2-05 05-14 tablet by ity of tablet 00:00: 00:00 mouth [place] 00 :00 daily. Medical Branch icosapent 2017-03- No [id number] 2g Take 2 Univers ethyl 2-12 capsules ity of (VASCEPA) 1 00:00: 00:00 by mouth 2 [place] gram 00 :00 (two) Medical capsule times Branch daily with meals. pantoprazol 2017-0 Yes Univer s e 20 mg EC 6-03 ity of tablet 00:00: [place] [facility] pantoprazol 2018-0 Yes Univer s e 20 mg EC 6-03 ity of tablet 00:00: [address] pantoprazol 2018-0 Yes Univer s e 20 mg EC 6-03 ity of tablet 00:00: [address] pantoprazol 2018-0 Yes Univer s e 20 mg EC 6-03 ity of tablet 00:00: [address] pantoprazol 2018-0 Yes Univer s e 20 mg EC 6-03 ity of tablet 00:00: [address] pantoprazol 2018-0 Yes Univer s e 20 mg EC 6-03 ity of tablet 00:00: [address] pantoprazol 2018-0 Yes Univer s e 20 mg EC 6-03 ity of tablet 00:00: [address] pantoprazol 2018-0 Yes Univer s e 20 mg EC 6-03 ity of tablet 00:00: [address] Vital Signs Vital Name Observation Time Observation Value Comments Source Systolic blood 2021-07-21 17:20:00 111 mm[Hg] Univer sity of pressure [facility] Diastolic blood 2021-07-21 17:20:00 76 mm[Hg] Unive rsity of pressure [facility] Heart rate 2021-07-21 17:20:00 80 /min [facility] Body temperature 2021-07-21 17:20:00 35.94 [facility]ree [facility] Respiratory rate 2021-07-21 17:20:00 18 /min [facility] Oxygen saturation in 2021-07-21 17:20:00 98 /min [facility] Arterial blood by [facility] Pulse oximetry [place] Body height 2021-07-16 03:00:00 172.7 cm [facility] Body weight 2021-07-16 03:00:00 91.5 kg [facility] BMI 2021-07-16 03:00:00 30.68 kg/m2 [facility] Procedures Procedure Date / Time Performing Clinician Source Performed POCT GLUCOSE 2021-07-21 17:22:00 [place] Antonio [facility] (AUTOMATED) [facility] Branch POCT GLUCOSE 2021-07-21 14:53:00 [facility] Branch POCT GLUCOSE 2021-07-21 13:48:00 Jazmin [facility] (AUTOMATED) Medical Branch MAGNESIUM 2021-07-21 08:55:00 [facility] BASIC METABOLIC PANEL 2021-07-21 08:55:00 [facility] (NA, K, CL, CO2, Medical Branch GLUCOSE, BUN, CREATININE, CA) CBC WITH DIFF 2021-07-21 08:55:00 [facility] 2021-07-21 01:36:00 Jazmin [facility] (AUTOMATED) Medical Branch POCT GLUCOSE 2021-07-20 22:46:00 Jazmin [facility] (AUTOMATED) Medical Branch POCT GLUCOSE 2021-07-20 18:41:00 [facility] Branch POCT GLUCOSE 2021-07-20 13:58:00 Lincoln Antoniozad [facility] (AUTOMATED) [facility] US HEAD NECK 2021-07-20 10:06:56 Feli Paez [facility] MAGNESIUM 2021-07-20 09:03:00 [facility]IC [facility]OLIC PANEL 2021-07-20 09:03:00 [facility] (NA, K, CL, CO2, Medical Branch GLUCOSE, BUN, CREATININE, CA) CBC WITH DIFF 2021-07-20 09:03:00 [facility] POCT GLUCOSE 2021-07-20 04:54:00 [facility] Medical Branch POCT GLUCOSE 2021-07-20 01:49:00 Jazmin [facility] (AUTOMATED) Medical Branch POCT GLUCOSE 2021-07-19 22:40:00 Jazmin [facility] (AUTOMATED) Medical Branch POCT GLUCOSE 2021-07-19 18:55:00 Jazmin [facility] (AUTOMATED) Medical Branch POCT GLUCOSE 2021-07-19 15:08:00 Jazmin [facility] (AUTOMATED) Medical Branch POCT GLUCOSE 2021-07-19 12:52:00 Jazmin [facility] (AUTOMATED) Medical Branch FREE T4 2021-07-19 09:44:00 [facility] 2021-07-19 09:44:00 [facility] BASIC METABOLIC PANEL 2021-07-19 09:44:00 Carlos Alberto [facility] (NA, K, CL, CO2, Medical Branch GLUCOSE, BUN, CREATININE, CA) POCT GLUCOSE 2021-07-19 04:53:00 Jazmin [facility] (AUTOMATED) Medical Branch POCT GLUCOSE 2021-07-19 01:50:00 Jazmin [facility] (AUTOMATED) Medical Branch POCT GLUCOSE 2021-07-18 21:56:00 Jazmin [facility] (AUTOMATED) Medical Branch POCT GLUCOSE 2021-07-18 13:36:00 Jazmin [facility] (AUTOMATED) Medical Branch MAGNESIUM 2021-07-18 09:59:00 [facility] BASIC METABOLIC PANEL 2021-07-18 09:59:00 [facility] (NA, K, CL, CO2, Medical Branch GLUCOSE, BUN, CREATININE, CA) LIPID PANEL 2021-07-18 09:59:00 [facility] ([id number])(TOTAL Medical Branch CHOLESTEROL, TRIGLYCERIDES, HDL) POCT GLUCOSE 2021-07-18 09:15:00 Jazmin [facility] (AUTOMATED) Medical Branch POCT GLUCOSE 2021-07-18 05:18:00 Jazmin [facility] (AUTOMATED) Medical Branch POCT GLUCOSE 2021-07-18 00:39:00 [facility] POCT GLUCOSE 2021-07-17 22:31:00 [facility] Branch POCT GLUCOSE 2021-07-17 19:10:00 [facility] Branch POCT GLUCOSE 2021-07-17 17:11:00 [facility] Medical Branch POCT GLUCOSE 2021-07-17 13:47:00 [facility] CBC WITHOUT DIFF 2021-07-17 11:15:00 [facility] MAGNESIUM 2021-07-17 10:51:00 [facility] BASIC METABOLIC PANEL 2021-07-17 10:51:00 [facility] ([facility], K, CL, CO2, Medical Branch GLUCOSE, BUN, CREATININE, CA) LIPID PANEL 2021-07-17 10:51:00 [facility] ([id number])(TOTAL Medical Branch CHOLESTEROL, TRIGLYCERIDES, HDL) LOW-DENSITY 2021-07-17 10:51:00 [facility] LIPOPROTEIN, DIRECT Medical Bran ch POCT GLUCOSE 2021-07-17 10:47:00 [facility] POCT GLUCOSE 2021-07-17 09:24:00 [facility] Medical Branch POCT GLUCOSE 2021-07-17 07:03:00 [facility] Medical Branch POCT GLUCOSE 2021-07-17 05:53:00 [facility] Medical Branch POCT GLUCOSE 2021-07-17 04:09:00 [facility] ([facility]OMATED) Medical Branch POCT GLUCOSE 2021-07-17 02:12:00 Ibikunrick [facility] (AUTOMATED) Medical Branch POCT GLUCOSE 2021-07-17 01:18:00 Ibikunrick [facility] (AUTOMATED) Medical Branch POCT GLUCOSE 2021-07-17 00:33:00 [facility] Branch POCT GLUCOSE 2021-07-16 23:27:00 [facility] Branch POCT GLUCOSE 2021-07-16 22:28:00 [facility] Branch POCT GLUCOSE 2021-07-16 20:32:00 [facility] Medical Branch LIPID PANEL 2021-07-16 20:25:00 [facility] ([id number])(TOTAL Medical Branch CHOLESTEROL, TRIGLYCERIDES, HDL) LOW-DENSITY 2021-07-16 20:25:00 [facility] LIPOPROTEIN, DIRECT Medical Bran ch POCT GLUCOSE 2021-07-16 19:50:00 Lizabeth [facility] (AUTOMATED) Medical Branch POCT GLUCOSE 2021-07-16 18:26:00 Ibashley [facility] (AUTOMATED) Medical Branch POCT GLUCOSE 2021-07-16 16:50[facility] 2021-07-16 15:55[facility]00 [facility] PO[facility] GLUCOSE 2021-07-16 14:42:00 Ibikunrick, [facility] (AUTOMATED) Medical Branch POCT GLUCOSE 2021-07-16 12:35[facility]00 [facility] LIPID PANEL 2021-07-16 11:25:00 Vanessa [facility] ([id number])(TOTAL Medical Branch CHOLESTEROL, TRIGLYCERIDES, HDL) LOW-DENSITY 2021-07-16 11:25:00 Vanessa [facility] LIPOPROTEIN, DIRECT Medical Bran ch POCT GLUCOSE 2021-07-16 11:02:00 Ibikunrick, Folusho [facility] (AUTOMATED) Medical Branch POCT GLUCOSE 2021-07-16 10:14:00 Ibikunle, Folusho [facility] (AUTOMATED) Medical Branch POCT GLUCOSE 2021-07-16 09:14:00 Ibikunle, Folusho [facility] (AUTOMATED) Medical Branch POCT GLUCOSE 2021-07-16 08:00:00 Ibikunle, Folusho [facility] (AUTOMATED) Medical Branch POCT GLUCOSE 2021-07-16 07:17:00 Ibikunrick, Folusho [facility] (AUTOMATED) Medical Branch POCT GLUCOSE 2021-07-16 06:06:00 Ibikunle, Folusho [facility] (AUTOMATED) Medical Branch POCT GLUCOSE 2021-07-16 05:10:00 Ibikunle, Folusho [facility] (AUTOMATED) Medical Branch POCT GLUCOSE 2021-07-16 04:11:00 Ibikunrick, Folusho [facility] (AUTOMATED) Medical Branch COMP. METABOLIC PANEL 2021-07-16 03:08:00 Vanessa [facility] ([id number]) Medical Branch POCT GLUCOSE 2021-07-16 03:06:00 Ibikunrick Folusho [facility] (AUTOMATED) Medical Branch CT ABDOMEN PELVIS W 2021-07-15 21:05:34 Lizabeth [facility] CONTRAST Medical Branch XR CHEST 1 VW 2021-07-15 20:33:33 Ibashley Folusho [facility] Medical Branch LIPASE 2021-07-15 20:26:00 Ibashley Folusho [facility] Medical [place] TROPONIN I 2021-07-15 20:26:00 [facility] COMP. METABOLIC PANEL 2021-07-15 20:26:00 [id number] LIPID PANEL 2021-07-15 20:26:00 Carlos Burks [facility] ([id number])(TOTAL Medical Branch CHOLESTEROL, TRIGLYCERIDES, HDL) CBC WITH DIFF 2021-07-15 20:26:00 Carlos Burks [facility] GLYCOSYLATED HEMOGLOBIN 2021-07-15 20:26:00 Carlos Burks [facility] (A1C) [facility] PROTHROMBIN TIME / INR 2021-07-15 20:26:00 [facility] 2021-07-15 20:26:00 Carlos Burks [facility] THRFormerly [facility] LACTIC ACID WHOLE BLOOD 2021-07-15 20:26:[address] [facility] LOW-DENSITY 2021-07-15 20:26:00 Carlos Burks [facility] LIPOPROTEIN, DIRECT Medical Bran ch HB ECG ROUTINE & RHYTHM 2021-07-15 19:58:58 Carlos Burks [facility] NOTICE OF PRIVACY 2021-07-15 19:52:26 Doctor Unassigned, No [facility] CONSENT/REFUSAL FOR 2021-07-15 19:52:09 Doctor Unassigned, No Un [facility] DIAGNOSIS AND TREATMENT [facility] HOSPITAL ADMISSION 2021-07-15 05:01:00 Doctor Unassigned, No [facility] ASSIGNMENT OF BENEFITS 2021-03-21 01:17:07 Doctor Unassigned, No [facility] Encounters Start End Encounter Admission Attending Care Care Encounter Source Date/Time Date/Time Type Type Clinicians Facility Department ID 2021-07-23 2021-07-23 Transition STUART David [id number] Univers 00:00:00 00:00:00 of Care Alla ANDERSON 350.1.13.10 i ty jocelyne [place]2.[place] [id number] [facility] 403 Branch 2021-07-15 2021-07-21 Inpatient X TERRANCE [facility] [id number] Univers 14:59:00 16:00:00 VERNON ity [facility] 2021-07-15 2021-07-21 [facility] Carlos Burks 1.2.8 40.114 [id number] Univers 14:59:00 16:00:00 Encounter [place] 350.1.13.10 ity of [facility] 4.2.7.2.686 [place] Carlos [id number] [place] [address] [place] 2021-07-21 2021-07-21 Telephone Terrance [facility] [id number] Univers 00:00:00 00:00:00 Vernon [facility] 350.1.13.10 it y of [facility] 4.2.7.2.[place] [id number] [place] [address] [place] 2021-03-28 2021-03-28 Laboratory Only, Ang Db Test [facility] 1.2.8 40.114 [id number] Univers 14:15:00 14:30:00 Only [facility] 350.1.13.10 ity of [place] 4.2.7.2.686 Deni as ANNA?BLEA [phone] [address] MEDICAL OFFICE [facility] 2021-03-28 2021-03-28 Outpatient R DALY [facility] [id number] Univers 14:15:00 14:15:00 ESTEE ity [facility] 2021-03-28 2021-03-28 Letter Nurse, Alex [facility] [id number] Univers 00:00:00 00:00:00 (Out) Urgent Care HEALTH 350.1.13.10 ity of [place] 4.2.7.2.686 Deni as ANNA?BLEA [id number] [address] MEDICAL OFFICE [facility] 2021-03-23 2021-03-23 Letter AMARILYS Gallardo [id number] Univers 00:00:00 00:00:00 (Out) Jana Arevalo IVNCENT 350.1.13.10 it y of [facility] 4.2.7.2.686 Edni as [id number] [facility] 019 Branch 2021-03-20 2021-03-20 Laboratory Only, Ang Db Test [facility] 1.2.8 40.114 [id number] Univers 19:15:00 19:30:00 Only Britta Griffin [facility] 350.1.13.10 ity of [place] 4.2.7.2.686 Deni as ANNA?BLEA [id number] [address] MEDICAL OFFICE BUILDING 2021-03-20 2021-03-20 Outpatient R KAHLIL, [facility] [id number] Univers 19:15:00 19:15:00 BRITTA ity [facility] 2021-03-20 2021-03-20 Orders Doctor AMARILYS [id number] Univers 00:00:00 00:00:00 Only Unassigned, VINCENT 350.1.13.10 ity of [place] [facility] 4.2.7.2.686 Deni as [phone] [address] Results Test Description Test Time Test Comments Results Result Comments Source POCT GLUCOSE (AUTOMATED) 2021-07-21 17:24:21 Test Item Value Reference Range Interpretation Comme nts POCT GLU (test code = 4792258720) 232 mg/dL 70-110 H Lab Interpretation (test code = 16735-4) Abnormal [facility] GLUCOSE (AUTOMATED)2021-07-21 14:54:48 Test Item Value Reference Range Interpretation Comments POCT GLU (test code = 0025702579) 172 mg/dL 70-110 H Lab Interpretation (test code = Abnormal 47271-5) [facility] GLUCOSE (AUTOMATED)2021-07-21 13:50:26 Test Item Value Reference Range Interpretation Comments POCT GLU (test code = 7345396335) 165 mg/dL 70-110 H Lab Interpretation (test code = Abnormal 59607-3) [facility] 09[facility]31:03 Test Item Value Reference Range Interpretation Comments MAGNESIUM (test code = 9454955585) 1.9 mg/dL 1.7-2.4 Lab Interpretation (test code = Normal 71403-3) [facility] METABOLIC PANEL (NA, K, CL, CO2, GLUCOSE, BUN, CREATININE, CA)2021-07-21 09:31:03 Test Item Value Reference Range Interpretation Comments NA (test code = 136 mmol/L 135-145 1693538020) K (test code = 3.7 mmol/L 3.5-5.0 2866492794) CL (test code = 107 mmol/L 98-108 4524246541) CO2 TOTAL (test code = 22 mmol/L 23-31 L 1016732628) AGAP (test code = 2-16 1107795969) BUN (test code = 11 mg/dL 7-23 4672565502) GLUCOSE (test code = 168 mg/dL 70-110 H 8451784406) CREATININE (test code = 0.62 mg/dL 0.60-1.25 3012039448) CALCIUM (test code = 9.1 mg/dL 8.6-10.6 7226742985) eGFR (test code = mL/min/1.73m2 5507792405) FRANCES (test code = FRANCES) Association of [...] tests). Lab Interpretation Abnormal (test code = 35737-7) [facility] WITH [id number] 09:11:21 Test Item Value Reference Range Interpretation Comments WBC (test code = See_Comment [Automated 6690-2) message] The sy stem which generated this result transmitted reference range : 4.20 - 10.70 10*3/?L. The reference range was not used to interpret this result as normal/abnormal . RBC (test code = See_Comment [Automated 789-8) message] The sy stem which generated this [...] (test code = 36.7 fL 38.5-51.6 L 60502-6) RDW-CV (test code = 12.7 % 12.1-15.4 788-0) PLT (test code = See_Comment [Automated 777-3) message] The sy stem which generated this result transmitted reference range : 150 - 328 10*3/ ?L. The reference r hermila was not used to interpret this result as normal/abnormal . MPV (test code = 10.5 fL 9.8-13.0 40404-1) NRBC/100 WBC (test See_Comment [Automat ed code = 1254800561) message] The system which generated this result transmitted reference range : 0.0 - 10.0 /100 WBCs. The refer ence range was not u sed to interpret th is result as normal/abnormal . NRBC x10^3 (test code <0.01 See_Comment [Auto mated = 6799167937) message] The s ystem which generated this result transmitted reference range : 10*3/?L. The reference range was not used to interpret this result as normal/abnormal . GRAN MAT (NEUT) % 56.1 % (test code = 770-8) IMM GRAN % (test code 1.10 % = 1729120518) LYMPH % (test code = 34.0 % 736-9) MONO % (test code = 5.9 % 5905-5) EOS % (test code = 2.3 % 713-8) BASO % (test code = 0.6 % 706-2) GRAN MAT x10^3(ANC) 2.66 10*3/uL 1.99-6.95 (test code = 6925870964) IMM GRAN x10^3 (test 0.05 10*3/uL 0.00-0.06 code = 0025684204) LYMPH x10^3 (test code 1.61 10*3/uL 1.09-3.23 = 731-0) MONO x10^3 (test code 0.28 10*3/uL 0.36-1.02 L = 742-7) EOS x10^3 (test code = 0.11 10*3/uL 0.06-0.53 711-2) BASO x10^3 (test code 0.03 10*3/uL 0.01-0.09 = 704-7) Lab Interpretation Abnormal (test code = 07788-9) [facility] GLUCOSE (AUTOMATED)2021-07-21 01:37:26 Test Item Value Reference Range Interpretation Comments POCT GLU (test code = 2245403734) 280 mg/dL 70-110 H Lab Interpretation (test code = Abnormal 06314-2) [facility] GLUCOSE (AUTOMATED)2021-07-20 22:48:59 Test Item Value Reference Range Interpretation Comments POCT GLU (test code = 2408681575) 258 mg/dL 70-110 H Lab Interpretation (test code = Abnormal 52320-0) [facility] GLUCOSE (AUTOMATED)2021-07-20 18:42:43 Test Item Value Reference Range Interpretation Comments POCT GLU (test code = 3423945320) 151 mg/dL 70-110 H Lab Interpretation (test code = Abnormal 32562-6) [facility]21-07-20 14:00:00 Test Item Value Reference Range Interpretation Comments POCT GLU (test code = 1699163645) 112 mg/dL 70-110 H Lab Interpretation (test code = Abnormal 04269-6) [facility] 09:39:15 Test Item Value Reference Range Interpretation Comments MAGNESIUM (test code = 6864338365) 1.6 mg/dL 1.7-2.4 L Lab Interpretation (test code = Abnormal 37288-5) [facility] METABOLIC PANEL (NA, K, CL, CO2, GLUCOSE, BUN, CREATININE, CA)2021-07-20 09:39:15 Test Item Value Reference Range Interpretation Comments NA (test code = 139 mmol/L 135-145 1506424023) K (test code = 3.4 mmol/L 3.5-5.0 L 4952153688) CL (test code = 106 mmol/L 98-108 5857963107) CO2 TOTAL (test code = 22 mmol/L 23-31 L 7805166186) AGAP (test code = 2-16 9985893533) BUN (test code = 10 mg/dL 7-23 9348898335) GLUCOSE (test code = 138 mg/dL 70-110 H 0810436234) CREATININE (test code = 0.63 mg/dL 0.60-1.25 5273453378) CALCIUM (test code = 9.1 mg/dL 8.6-10.6 8736991648) eGFR (test code = mL/min/1.73m2 7221238534) FRANCES (test code = FRANCES) Association of [...] tests). Lab Interpretation Abnormal (test code = 51928-7) [facility] WITH [id number] 09:11:29 Test Item Value Reference Range Interpretation Comments WBC (test code = See_Comment [Automated 6790-2) message] The sy stem which generated this result transmitted reference range : 4.20 - 10.70 10*3/?L. The reference range was not used to interpret this result as normal/abnormal . RBC (test code = See_Comment [Automated 319-8) message] The sy stem which generated this [...] (test code = 37.7 fL 38.5-51.6 L 40702-0) RDW-CV (test code = 13.0 % 12.1-15.4 788-0) PLT (test code = See_Comment [Automated 777-3) message] The sy stem which generated this result transmitted reference range : 150 - 328 10*3/ ?L. The reference r hermila was not used to interpret this result as normal/abnormal . MPV (test code = 10.5 fL 9.8-13.0 05934-3) NRBC/100 WBC (test See_Comment [Automat ed code = 1802614801) message] The system which generated this result transmitted reference range : 0.0 - 10.0 /100 WBCs. The refer ence range was not u sed to interpret th is result as normal/abnormal . NRBC x10^3 (test code <0.01 See_Comment [Auto mated = 3896296465) message] The s ystem which generated this result transmitted reference range : 10*3/?L. The reference range was not used to interpret this result as normal/abnormal . GRAN MAT (NEUT) % 54.1 % (test code = 770-8) IMM GRAN % (test code 0.70 % = 5681024402) LYMPH % (test code = 34.1 % 736-9) MONO % (test code = 6.9 % 5905-5) EOS % (test code = 3.3 % 713-8) BASO % (test code = 0.9 % 706-2) GRAN MAT x10^3(ANC) 2.44 10*3/uL 1.99-6.95 (test code = 3116061981) IMM GRAN x10^3 (test 0.03 10*3/uL 0.00-0.06 code = 3129226463) LYMPH x10^3 (test code 1.54 10*3/uL 1.09-3.23 = 731-0) MONO x10^3 (test code 0.31 10*3/uL 0.36-1.02 L = 742-7) EOS x10^3 (test code = 0.15 10*3/uL 0.06-0.53 711-2) BASO x10^3 (test code 0.04 10*3/uL 0.01-0.09 = 704-7) Lab Interpretation Abnormal (test code = 97372-8) [facility] GLUCOSE (AUTOMATED)2021-07-20 04:54:43 Test Item Value Reference Range Interpretation Comments POCT GLU (test code = 5740691464) 111 mg/dL 70-110 H Lab Interpretation (test code = Abnormal 70475-9) [facility] GLUCOSE (AUTOMATED)2021-07-20 01:50:04 Test Item Value Reference Range Interpretation Comments POCT GLU (test code = 6354089943) 131 mg/dL 70-110 H Lab Interpretation (test code = Abnormal 01199-9) [facility] GLUCOSE (AUTOMATED)2021-07-19 22:42:23 Test Item Value Reference Range Interpretation Comments POCT GLU (test code = 7703755673) 121 mg/dL 70-110 H Lab Interpretation (test code = Abnormal 10410-4) [facility] GLUCOSE (AUTOMATED)2021-07-19 19:07:01 Test Item Value Reference Range Interpretation Comments POCT GLU (test code = 6472849216) 91 mg/dL 70-110 Lab Interpretation (test code = Normal 49229-0) [facility] GLUCOSE (AUTOMATED)2021-07-19 15:09:49 Test Item Value Reference Range Interpretation Comments POCT GLU (test code = 2293718153) 89 mg/dL 70-110 Lab Interpretation (test code = Normal 62045-3) [facility] METABOLIC PANEL (NA, K, CL, CO2, GLUCOSE, BUN, CREATININE, CA)2021-07-19 14:30:15 Test Item Value Reference Range Interpretation Comments NA (test code = 136 mmol/L 135-145 3138372498) K (test code = 3.3 mmol/L 3.5-5.0 L 7728620501) CL (test code = 107 mmol/L 98-108 6613307398) CO2 TOTAL (test code = 19 mmol/L 23-31 L 0532756494) AGAP (test code = 2-16 3144681312) BUN (test code = 10 mg/dL 7-23 6378918525) GLUCOSE (test code = 92 mg/dL 70-110 6232452286) CREATININE (test code = 0.67 mg/dL 0.60-1.25 5499791602) CALCIUM (test code = 9.0 mg/dL 8.6-10.6 9809914522) eGFR (test code = mL/min/1.73m2 0967586201) FRANCES (test code = FRANCES) Association of [...] tests). Lab Interpretation Abnormal (test code = 16373-6) [facility] 12:57:37 Test Item Value Reference Range Interpretation Comments POCT GLU (test code = 5578326437) 93 mg/dL 70-110 Lab Interpretation (test code = Normal 23054-6) [facility] [id number] 11:08:12 Test Item Value Reference Range Interpretation Comments TSH (test code = See_Comment Biotin has been 7360007205) reported to cau se a negative bias, interpret resul ts relative to alessandra arreola's use of biotin. [Automated mess age] The system INXPO generated this result transmitted ref erence range: 0.45 - 4 .70 mIU/L. The refe rence range was not u sed to interpret this result as normal/abnor mal. Lab Interpretation (test Normal code = 27569-5) [facility] [id number] 11:05:31 Test Item Value Reference Range Interpretation Comments FREE T4 (test code = See_Comment [Autom ated message] 2274655586) The system INXPO generated this result transmitted ref erence range: 0.78 - 2 .20 ng/dL:. The ref erence range was not u sed to interpret this result as normal/abnor mal. Lab Interpretation (test Normal code = 64508-8) [facility] GLUCOSE (AUTOMATED)2021-07-19 04:53:46 Test Item Value Reference Range Interpretation Comments POCT GLU (test code = 9417841256) 87 mg/dL 70-110 Lab Interpretation (test code = Normal 31955-1) [facility] GLUCOSE (AUTOMATED)2021-07-19 01:50:57 Test Item Value Reference Range Interpretation Comments POCT GLU (test code = 3817495292) 86 mg/dL 70-110 Lab Interpretation (test code = Normal 32442-2) [facility] GLUCOSE (AUTOMATED)2021-07-18 21:57:40 Test Item Value Reference Range Interpretation Comments POCT GLU (test code = 3124722350) 95 mg/dL 70-110 Lab Interpretation (test code = Normal 87814-2) [facility] GLUCOSE (AUTOMATED)2021-07-18 13:44:51 Test Item Value Reference Range Interpretation Comments POCT GLU (test code = 1275748851) 156 mg/dL 70-110 H Lab Interpretation (test code = Abnormal 08301-8) [facility] METABOLIC PANEL (NA, K, CL, CO2, GLUCOSE, BUN, CREATININE, CA)2021-07-18 11:16:50 Test Item Value Reference Range Interpretation Comments NA (test code = 136 mmol/L 135-145 4269775377) K (test code = 3.4 mmol/L 3.5-5.0 L 7300283612) CL (test code = 109 mmol/L 98-108 H 6592027908) CO2 TOTAL (test code = 20 mmol/L 23-31 L 5067425605) AGAP (test code = 2-16 8673939809) BUN (test code = 8 mg/dL 7-23 2694014071) GLUCOSE (test code = 173 mg/dL 70-110 H 6239246760) CREATININE (test code = 0.64 mg/dL 0.60-1.25 4288949856) CALCIUM (test code = 8.2 mg/dL 8.6-10.6 L 8999902020) eGFR (test code = mL/min/1.73m2 5130014038) FRANCES (test code = FRANCES) Association of [...] tests). Lab Interpretation Abnormal (test code = 11925-9) [facility] 11:16:50 Test Item Value Reference Range Interpretation Comments MAGNESIUM (test code = 5332261733) 1.9 mg/dL 1.7-2.4 Lab Interpretation (test code = Normal 09386-7) [facility] (18145)(TOTAL CHOLESTEROL, TRIGLYCERIDES, HDL)2021-07-18 11:16:50 Test Item Value Reference Range Interpretation Comments CHOL (test code = 250 mg/dL 120-200 H 5374392081) HDL (test code = 34 mg/dL >40 L 4271104050) HDLC RATIO (test code = See_Comment H [Au tomated message] 4475354882) The system INXPO generated this result transmit hue reference range : <=5.0. The refe rence range was not u sed to interpret th is result as normal/abnormal . TRIG (test code = 385 mg/dL 30-170 H 9291622097) LDL CHOL (test code = 139 mg/dL See_Comment [Auto mated message] 60629-2) The system INXPO generated this result transmit hue reference range : <=160. The refe rence range was not u sed to interpret th is result as normal/abnormal . VLDL (test code = 77 mg/dL 5-60 H 5788000372) Lab Interpretation (test Abnormal code = 46482-9) [facility] GLUCOSE (AUTOMATED)2021-07-18 09:16:15 Test Item Value Reference Range Interpretation Comments POCT GLU (test code = 3472767275) 172 mg/dL 70-110 H Lab Interpretation (test code = Abnormal 40542-3) [facility] GLUCOSE (AUTOMATED)2021-07-18 05:19:04 Test Item Value Reference Range Interpretation Comments POCT GLU (test code = 3218839205) 194 mg/dL 70-110 H Lab Interpretation (test code = Abnormal 47582-6) [facility] GLUCOSE (AUTOMATED)2021-07-18 00:48:34 Test Item Value Reference Range Interpretation Comments POCT GLU (test code = 5817878609) 164 mg/dL 70-110 H Lab Interpretation (test code = Abnormal 29609-8) [facility] GLUCOSE (AUTOMATED)2021-07-17 22:35:51 Test Item Value Reference Range Interpretation Comments POCT GLU (test code = 8948300996) 173 mg/dL 70-110 H Lab Interpretation (test code = Abnormal 16326-9) [facility] GLUCOSE (AUTOMATED)2021-07-17 19:21:12 Test Item Value Reference Range Interpretation Comments POCT GLU (test code = 1733601165) 203 mg/dL 70-110 H Lab Interpretation (test code = Abnormal 22879-2) [facility] GLUCOSE (AUTOMATED)2021-07-17 17:22:15 Test Item Value Reference Range Interpretation Comments POCT GLU (test code = 4013400261) 205 mg/dL 70-110 H Lab Interpretation (test code = Abnormal 18270-4) [facility] GLUCOSE (AUTOMATED)2021-07-17 13:58:35 Test Item Value Reference Range Interpretation Comments POCT GLU (test code = 3953942803) 95 mg/dL 70-110 Lab Interpretation (test code = Normal 15185-3) [facility] (44943)(TOTAL CHOLESTEROL, TRIGLYCERIDES, HDL)2021-07-17 12:23:51 Test Item Value Reference Range Interpretation Comments CHOL (test code = 236 mg/dL 120-200 H 8700669018) HDL (test code = 43 mg/dL >40 0196450718) HDLC RATIO (test code = See_Comment H [Au tomated message] 0764998759) The system INXPO generated this result transmitted ref erence range: <=5.0. T he reference range was not used to int erpret this result as normal/abnormal . TRIG (test code = 462 mg/dL 30-170 H 6914797184) LDL CHOL (test code = Unable to calculate 61155-7) LDL due to elev ated triglyceride le charissa greater than 40 0 mg/dL. VLDL (test code = 92 mg/dL 5-60 H 0978211646) Lab Interpretation Abnormal (test code = 70641-1) [facility], [id number] 12:16:24 Test Item Value Reference Range Interpretation Comments dLDL Chol (test code = 32459-8) 53 mg/dL <130 Lab Interpretation (test code = Normal 06908-9) [facility] 11:55:21 Test Item Value Reference Range Interpretation Comments MAGNESIUM (test code = 0011139939) 1.6 mg/dL 1.7-2.4 L Lab Interpretation (test code = Abnormal 27937-4) [facility] METABOLIC PANEL (NA, K, CL, CO2, GLUCOSE, BUN, CREATININE, CA)2021-07-17 11:55:20 Test Item Value Reference Range Interpretation Comments NA (test code = 135 mmol/L 135-145 9121834593) K (test code = 3.3 mmol/L 3.5-5.0 L 6718519880) CL (test code = 106 mmol/L 98-108 8824377381) CO2 TOTAL (test code = 23 mmol/L 23-31 7422079120) AGAP (test code = 2-16 3515524893) BUN (test code = 7 mg/dL 7-23 3230586684) GLUCOSE (test code = 114 mg/dL 70-110 H 2121890513) CREATININE (test code = 0.58 mg/dL 0.60-1.25 L 1635313793) CALCIUM (test code = 8.7 mg/dL 8.6-10.6 4641953729) eGFR (test code = mL/min/1.73m2 2633287574) FRANCES (test code = FRANCES) Association of [...] tests). Lab Interpretation Abnormal (test code = 17102-4) [facility] WITHOUT [id number] 11:49:58 Test Item Value Reference Range Interpretation Comments WBC (test code = 6690-2) See_Comment [A utomated message] The system INXPO generated this result transmit hue reference range : 4.20 - 10.70 10*3/?L. The reference range was not used to interpret this result as normal/abnormal . RBC (test code = 789-8) See_Comment L [Au tomated message] The system INXPO generated this result transmit hue reference range [...] 777-3) See_Comment [Au tomated message] The system INXPO generated this result transmit hue reference range : 150 - 328 10*3/?L. The reference range was not used to interpret this result as normal/abnormal . MPV (test code = 11.7 fL 9.8-13.0 87781-7) RDW-CV (test code = 13.5 % 12.1-15.4 788-0) RDW-SD (test code = 39.3 fL 38.5-51.6 18901-5) NRBC x10^3 (test code = <0.01 See_Comment [Au tomated message] 8099769888) The system whic h generated this result transmit hue reference range : 10*3/?L. The reference range was not used to interpret this result as normal/abnormal . NRBC/100 WBC (test code See_Comment [Au tomated message] = 5990425674) The system i generated this result transmit hue reference range : 0.0 - 10.0 /100 WBC s. The reference r hermila was not used to interpret this result as normal/abnormal . IPF % (test code = 2823180017) Lab Interpretation (test Abnormal code = 09491-9) [facility] GLUCOSE (AUTOMATED)2021-07-17 10:55:13 Test Item Value Reference Range Interpretation Comments POCT GLU (test code = 0246433402) 120 mg/dL 70-110 H Lab Interpretation (test code = Abnormal 46858-1) [facility] GLUCOSE (AUTOMATED)2021-07-17 09:35:01 Test Item Value Reference Range Interpretation Comments POCT GLU (test code = 4625949801) 114 mg/dL 70-110 H Lab Interpretation (test code = Abnormal 82080-5) [facility] GLUCOSE (AUTOMATED)2021-07-17 07:04:08 Test Item Value Reference Range Interpretation Comments POCT GLU (test code = 8540403739) 125 mg/dL 70-110 H Lab Interpretation (test code = Abnormal 34822-3) [facility] GLUCOSE (AUTOMATED)2021-07-17 05:55:00 Test Item Value Reference Range Interpretation Comments POCT GLU (test code = 2515013897) 132 mg/dL 70-110 H Lab Interpretation (test code = Abnormal 00643-1) [facility] GLUCOSE (AUTOMATED)2021-07-17 04:15:16 Test Item Value Reference Range Interpretation Comments POCT GLU (test code = 5897277978) 167 mg/dL 70-110 H Lab Interpretation (test code = Abnormal 08962-6) [facility] GLUCOSE (AUTOMATED)2021-07-17 02:14:09 Test Item Value Reference Range Interpretation Comments POCT GLU (test code = 8549055377) 137 mg/dL 70-110 H Lab Interpretation (test code = Abnormal 32150-4) [facility] GLUCOSE (AUTOMATED)2021-07-17 01:19:32 Test Item Value Reference Range Interpretation Comments POCT GLU (test code = 1762037497) 132 mg/dL 70-110 H Lab Interpretation (test code = Abnormal 16929-8) [facility] GLUCOSE (AUTOMATED)2021-07-17 00:35:21 Test Item Value Reference Range Interpretation Comments POCT GLU (test code = 4691558459) 146 mg/dL 70-110 H Lab Interpretation (test code = Abnormal 13705-5) [facility] GLUCOSE (AUTOMATED)2021-07-16 23:29:07 Test Item Value Reference Range Interpretation Comments POCT GLU (test code = 3546124276) 143 mg/dL 70-110 H Lab Interpretation (test code = Abnormal 53728-7) [facility] GLUCOSE (AUTOMATED)2021-07-16 22:29:57 Test Item Value Reference Range Interpretation Comments POCT GLU (test code = 6660292769) 140 mg/dL 70-110 H Lab Interpretation (test code = Abnormal 81264-7) [facility] [id number] 22:27:31 Test Item Value Reference Range Interpretation Comments dLDL Chol (test code = 09191-3) 39 mg/dL <130 Lab Interpretation (test code = Normal 71203-7) [facility]43382[facility]TOTAL CHOLESTEROL, TRIGLYCERIDES, HDL)2021-07-16 22:11:40 Test Item Value Reference Range Interpretation Comments CHOL (test code = 293 mg/dL 120-200 H 7856350681) HDL (test code = 41 mg/dL >40 6007160806) HDLC RATIO (test code = See_Comment H [Au tomated message] 7989927816) The system INXPO generated this result transmitted ref erence range: <=5.0. T he reference range was not used to int erpret this result as normal/abnormal . TRIG (test code = 917 mg/dL 30-170 H 4130477412) LDL CHOL (test code = Unable to calculate 42905-3) LDL due to elev ated triglyceride le charissa greater than 40 0 mg/dL. VLDL (test code = Unable to calculate 2290969903) VLDL due to linda vated triglyceride le charissa greater than 71 0 mg/dL. Lab Interpretation Abnormal (test code = 13495-8) [facility] GLUCOSE (AUTOMATED)2021-07-16 20:33:46 Test Item Value Reference Range Interpretation Comments POCT GLU (test code = 2487378924) 126 mg/dL 70-110 H Lab Interpretation (test code = Abnormal 03630-2) [facility] GLUCOSE (AUTOMATED)2021-07-16 19:51:56 Test Item Value Reference Range Interpretation Comments POCT GLU (test code = 8662677877) 121 mg/dL 70-110 H Lab Interpretation (test code = Abnormal 08841-5) [facility] GLUCOSE (AUTOMATED)2021-07-16 18:27:45 Test Item Value Reference Range Interpretation Comments POCT GLU (test code = 2903407648) 111 mg/dL 70-110 H Lab Interpretation (test code = Abnormal 74549-6) [facility] GLUCOSE (AUTOMATED)2021-07-16 16:54:40 Test Item Value Reference Range Interpretation Comments POCT GLU (test code = 0735186006) 108 mg/dL 70-110 Lab Interpretation (test code = Normal 28245-0) [facility] GLUCOSE (AUTOMATED)2021-07-16 15:56:26 Test Item Value Reference Range Interpretation Comments POCT GLU (test code = 8084155404) 96 mg/dL 70-110 Lab Interpretation (test code = Normal 61977-0) [facility] GLUCOSE (AUTOMATED)2021-07-16 14:42:32 Test Item Value Reference Range Interpretation Comments POCT GLU (test code = 9794989966) 95 mg/dL 70-110 Lab Interpretation (test code = Normal 63743-9) [facility], [id number] 13:30:57 Test Item Value Reference Range Interpretation Comments dLDL Chol (test code = <30 See_Comment [Aut omated message] 38997-6) The system INXPO generated this result transmitted ref erence range: <130 mg/ dL. The reference range was not used to int erpret this result as normal/abnormal . Lab Interpretation (test Normal code = 59668-7) [facility]25875)(TOTAL CHOLESTEROL, TRIGLYCERIDES, HDL)2021-07-16 13:13:10 Test Item Value Reference Range Interpretation Comments CHOL (test code = 290 mg/dL 120-200 H 0925999673) HDL (test code = 38 mg/dL >40 L 8123202070) HDLC RATIO (test code = See_Comment H [Au tomated message] 5859928146) The system INXPO generated this result transmit hue reference range : <=5.0. The refe rence range was not u sed to interpret th is result as normal/abnormal . TRIG (test code = 1574 mg/dL 30-170 H 9873519588) LDL CHOL (test code = Unable to calculate 59695-9) LDL due to elev ated triglyceride le charissa greater than 40 0 mg/dL. VLDL (test code = Unable to calculate 0899615817) VLDL due to linda vated triglyceride le charissa greater than 71 0 mg/dL. Lab Interpretation Abnormal (test code = 00763-7) [facility] GLUCOSE (AUTOMATED)2021-07-16 12:37:02 Test Item Value Reference Range Interpretation Comments POCT GLU (test code = 3613659570) 113 mg/dL 70-110 H Lab Interpretation (test code = Abnormal 42106-0) [facility] GLUCOSE (AUTOMATED)2021-07-16 11:09:12 Test Item Value Reference Range Interpretation Comments POCT GLU (test code = 8966929332) 95 mg/dL 70-110 Lab Interpretation (test code = Normal 51408-8) [facility] GLUCOSE (AUTOMATED)2021-07-16 10:23:24 Test Item Value Reference Range Interpretation Comments POCT GLU (test code = 6965436202) 89 mg/dL 70-110 Lab Interpretation (test code = Normal 22948-4) [facility] GLUCOSE (AUTOMATED)2021-07-16 09:23:50 Test Item Value Reference Range Interpretation Comments POCT GLU (test code = 8875181232) 115 mg/dL 70-110 H Lab Interpretation (test code = Abnormal 26208-3) [facility] GLUCOSE (AUTOMATED)2021-07-16 08:10:47 Test Item Value Reference Range Interpretation Comments POCT GLU (test code = 7892860454) 131 mg/dL 70-110 H Lab Interpretation (test code = Abnormal 97359-5) [facility] GLUCOSE (AUTOMATED)2021-07-16 07:27:49 Test Item Value Reference Range Interpretation Comments POCT GLU (test code = 6286639009) 141 mg/dL 70-110 H Lab Interpretation (test code = Abnormal 35377-2) [facility] GLUCOSE (AUTOMATED)2021-07-16 06:16:55 Test Item Value Reference Range Interpretation Comments POCT GLU (test code = 8334191180) 186 mg/dL 70-110 H Lab Interpretation (test code = Abnormal 97514-8) [facility], [id number] 05:51:15 Test Item Value Reference Range Interpretation Comments dLDL Chol (test code = 40928-2) 41 mg/dL <130 Lab Interpretation (test code = Normal 64395-3) [facility] GLUCOSE (AUTOMATED)2021-07-16 05:27:27 Test Item Value Reference Range Interpretation Comments POCT GLU (test code = 7177233185) 222 mg/dL 70-110 H Lab Interpretation (test code = Abnormal 71243-6) [facility] GLUCOSE (AUTOMATED)2021-07-16 04:31:26 Test Item Value Reference Range Interpretation Comments POCT GLU (test code = 2751104866) 242 mg/dL 70-110 H Lab Interpretation (test code = Abnormal 04213-4) [facility] (80094)2021-07-16 03:44:51 Test Item Value Reference Range Interpretation Comments NA (test code = 138 mmol/L 135-145 3695634811) K (test code = 4.2 mmol/L 3.5-5.0 8972064253) CL (test code = 109 mmol/L 98-108 H 0111923758) CO2 TOTAL (test code = 17 mmol/L 23-31 L 5002107019) AGAP (test code = 2-16 8096001713) BUN (test code = 18 mg/dL 7-23 3454813548) GLUCOSE (test code = 242 mg/dL 70-110 H 8738805856) CREATININE (test code = 0.61 mg/dL 0.60-1.25 8598237167) TOTAL BILI (test code = 0.9 mg/dL 0.1-1.7 3926801795) CALCIUM (test code = 8.7 mg/dL 8.6-10.6 6019568443) T PROTEIN (test code = 7.6 g/dL 6.3-8.2 4581603348) ALBUMIN (test code = 4.2 g/dL 3.5-5.0 5237611934) ALK PHOS (test code = 59 U/L 34-122 0292545249) ALTv (test code = 30 U/L 5-50 1742-6) AST(SGOT) (test code = 31 U/L 13-40 0238817318) eGFR (test code = mL/min/1.73m2 0720284542) FRANCES (test code = FRANCES) Association of [...] tests). Lab Interpretation Abnormal (test code = 77452-1) [facility] GLUCOSE (AUTOMATED)2021-07-16 03:13:43 Test Item Value Reference Range Interpretation Comments POCT GLU (test code = 6887691211) 271 mg/dL 70-110 H Lab Interpretation (test code = Abnormal 97039-4) [facility]51252)(TOTAL CHOLESTEROL, TRIGLYCERIDES, HDL)2021-07-15 23:44:57 Test Item Value Reference Range Interpretation Comments CHOL (test code = 465 mg/dL 120-200 H 1927834186) HDL (test code = 35 mg/dL >40 L 9044246427) HDLC RATIO (test code See_Comment H [Auto mated = 3381469176) message] The system which generated this result transmit hue reference range : <=5.0. The reference range was not used to interpret this result as normal/abnormal . TRIG (test code = >1575 30-170 H 5032663634) LDL CHOL (test code = Unable to 85301-9) calculate LDL d ue to elevated triglyceride le charissa greater than 40 0 mg/dL. VLDL (test code = Unable to 4853832266) calculate VLDL due to elevated triglyceride le charissa greater than 71 0 mg/dL. FRANCES (test code = FRANCES) Trig value 4667 mg/dl Lab Interpretation Abnormal (test code = 57518-1) [facility] (A1C)2021-07-15 21:27:58 Test Item Value Reference Range Interpretation Comments HGB A1C (test code = 10.6 % 4.0-5.7 H 4548-4) FRANCES (test code = FRANCES) Reference RangesNormal: <5.7%Prediabetes: 5.7 - 6.4%Diabetes: > 6.5% Lab Interpretation (test Abnormal code = 51487-6) [facility], [id number] 21:27:48 Test Item Value Reference Range Interpretation Comments LIPASE (test code = 2640034487) 2372 U/L 0-220 H Lab Interpretation (test code = Abnormal 73658-9) [facility]TR[facility] [id number] 21:05:36 Test Item Value Reference Interpretation Comments Range TROPONIN I (test 0.001 ng/mL See_Comment [Automated code = 3046850902) message] The system which generated this result [...] biotin. Lab Interpretation Normal (test code = 55808-7) [facility] 20:54:53 Test Item Value Reference Range Interpretation Comments APTT Patient (test See_Comment [Automat ed code = 3173-2) message] The system which generated this result transmitted reference range : 23 - 38 Seconds . The reference range was not used to interpr et this result as normal/abnormal . FRANCES (test code = FRANCES) The [facility] patient population mean normal value for aPTT is 30 seconds. Lab Interpretation Normal (test code = 30617-5) [facility] (35608)2021-07-15 20:54:33 Test Item Value Reference Range Interpretation Comments NA (test code = 139 mmol/L 135-145 6107634869) K (test code = 4.3 mmol/L 3.5-5.0 4096816146) CL (test code = 105 mmol/L 98-108 9031998652) CO2 TOTAL (test code = 17 mmol/L 23-31 L 0112127906) AGAP (test code = 2-16 H 3240659008) BUN (test code = 21 mg/dL 7-23 0808213596) GLUCOSE (test code = 272 mg/dL 70-110 H 6602524128) CREATININE (test code = 0.69 mg/dL 0.60-1.25 2726380579) TOTAL BILI (test code = 0.8 mg/dL 0.1-1.5 0949811692) CALCIUM (test code = 9.5 mg/dL 8.6-10.6 3998240410) T PROTEIN (test code = 8.7 g/dL 6.3-8.2 H 0138782132) ALBUMIN (test code = 4.7 g/dL 3.5-5.0 2675964326) ALK PHOS (test code = 71 U/L 34-122 7474369713) ALTv (test code = 30 U/L 5-50 2-6) AST(SGOT) (test code = 25 U/L 13-40 3084818359) eGFR (test code = mL/min/1.73m2 1632430412) FRANCES (test code = FRANCES) Association of [...] tests). Lab Interpretation Abnormal (test code = 34497-8) [facility]PROT[facility] / [id number] 20:52:53 Test Item Value Reference Range Interpretation Comments PROTIME PATIENT (test See_Comment L [Auto mated message] code = 5964-2) The system Bl[employer] generated this result transmitted ref erence range: 12.0 - 1 4.7 Seconds. The reference range was not used to int erpret this result as normal/abnormal . INR (test code = 6301-6) Nor mal INR <1.1; Warfarin Therap eutic range 2.0 to 3. 0 or 2.5 to 3.5, dep ending upon the indica tions. Lab Interpretation (test Abnormal code = 97075-9) [facility] WITH [id number] 20:42:35 Test Item Value Reference Range Interpretation Comments WBC (test code = See_Comment H [Automated 7590-2) message] The system which generated this result transmit hue reference range : 4.20 - 10.70 10*3/?L. The reference range was not used to interpret this result as normal/abnormal . RBC (test code = See_Comment [Automated 789-8) message] The system which generated this result [...] (test code = 35.7 fL 38.5-51.6 L 18887-7) RDW-CV (test code = 12.6 % 12.1-15.4 788-0) PLT (test code = See_Comment [Automated 777-3) message] The system which generated this result transmit hue reference range : 150 - 328 10*3/ ?L. The reference range was not u sed to interpret th is result as normal/abnormal . MPV (test code = 11.8 fL 9.8-13.0 53302-2) NRBC/100 WBC (test See_Comment [Automat ed code = 4200705990) message] The system which generated this result transmit hue reference range : 0.0 - 10.0 /100 WBCs. The reference range was not used to interpret this result as normal/abnormal . NRBC x10^3 (test code <0.01 See_Comment [Auto mated = 1559314243) message] The system which generated this result transmit hue reference range : 10*3/?L. The reference range was not used to interpret this result as normal/abnormal . GRAN MAT (NEUT) % 84.9 % (test code = 770-8) IMM GRAN % (test code 0.40 % = 2698175984) LYMPH % (test code = 10.3 % 736-9) MONO % (test code = 3.9 % 5905-5) EOS % (test code = 0.2 % 713-8) BASO % (test code = 0.3 % 706-2) GRAN MAT x10^3(ANC) 10.26 10*3/uL 1.99-6.95 H (test code = 9818529682) IMM GRAN x10^3 (test 0.05 10*3/uL 0.00-0.06 code = 0508143729) LYMPH x10^3 (test code 1.24 10*3/uL 1.09-3.23 = 731-0) MONO x10^3 (test code 0.47 10*3/uL 0.36-1.02 = 742-7) EOS x10^3 (test code = 0.03 10*3/uL 0.06-0.53 L 711-2) BASO x10^3 (test code 0.04 10*3/uL 0.01-0.09 = 704-7) Lab Interpretation Abnormal (test code = 68305-1) [facility]
[2022-03-20] MEDS ORDERED: MORPHINE 4 MG/ML SYR ONE (00:24)
[2022-03-20] MEDS ORDERED: ONDANSETRON 4 MG/2 ML VIAL ONE (00:24)
[2022-03-20] MEDS ORDERED: NA CHLORIDE 0.9% 1,000 ML ONE ×3 (00:25→20:01)
[2022-03-20 00:49] LABS: Absolute Lymphocytes (CBC) 1.2 K/uL (0.7-4.9); Hematocrit 39.7 % (39.6-49.0); Lymphocytes % 21.2 % (15.3-44.8); MPV 9.6 fL (7.6-11.3)
[2022-03-20 01:06] LABS: ALT/SGPT 50 U/L (16-61); Albumin 3.6 g/dL (3.4-5.0); Alkaline Phosphatase 70 U/L (45-117); BUN Blood Urea Nitrogen 16 mg/dL (7-18); Bicarbonate 22 mmol/L (21-32); Bilirubin Total 0.7 mg/dL (0.2-1.0); Glomerular Filtration Rate 110 ml/min (=/>90); Glucose Level 233 mg/dL (74-106); Lipase 2188 U/L (73-393); Sodium Level 137 mmol/L (136-145)
[2022-03-20 01:13] LABS: AST/SGOT 30 U/L (15-37)
[2022-03-20] MEDS ORDERED: HYDROMORPHONE HCL 0.5 MG/0.5 ML INJ ONE ×5 (02:02→20:01)
--- NOTE | 2022-03-20 02:54 | EDPHYS ---
Physician Documentation [facility] Name: Javier Rutherford Age: 47 yrs Sex: Male : 1975 Arrival Date: 03/19/2022 Time: 23:29 Bed 8 Private MD: ED Physician Popeye Larson HPI: 03/20 02:25 This 47 yrs old Male presents to ER via Ambulatory with complaints of Back rt Pain, Abdominal Injury. 02:25 With history of multiple episodes of pancreatitis presents to the ED with epigastric rt pain, sharp in nature, radiating to the back associate with nausea vomiting. This started yesterday. Is been continuous. This is similar to prior episodes of pancreatitis. He has not tried thing for relief. He denies other aggravating or alleviating factors. Symptoms are moderate in severity.. Historical: - Allergies: 00:38 No Known Allergies; as6 - Home Meds: 00:11 tresiba [Active]; Novolog Sub-Q [Active]; metformin 1,000 mg Oral tab 1 tab 2 times per vc1 day [Active]; atorvastatin Oral once daily [Active]; fenofibrate Oral [Active]; gemfibrozil Oral [Active]; - PMHx: 00:11 Diabetes - NIDDM; fatty liver; Hyperlipidemia; Pancreatitis; vc1 - PSHx: 00:11 Cholecystectomy; hernia; Vasectomy; vc1 - Immunization history:: Adult Immunizations up to date, Client reports receiving the 2nd dose of the Covid vaccine. - Social history:: Smoking status: Patient denies any tobacco usage or history of. - Family history:: not pertinent. ROS: 02:25 Constitutional: Negative for fever, chills, and weight loss, Eyes: Negative for injury, rt pain, redness, and discharge, ENT: Negative for injury, pain, and discharge, Neck: Negative for injury, pain, and swelling, Cardiovascular: Negative for chest pain, palpitations, and edema, Respiratory: Negative for shortness of breath, cough, wheezing, and pleuritic chest pain, MS/Extremity: Negative for injury and deformity, Skin: Negative for injury, rash, and discoloration, Neuro: Negative for headache, weakness, numbness, tingling, and seizure, Psych: Negative for depression, anxiety, suicide ideation, homicidal ideation, and hallucinations. 02:25 Abdomen/GI: Positive for abdominal pain, nausea and vomiting. Exam: 02:25 Constitutional: This is a well developed, well nourished patient who is awake, alert, rt and in no acute distress. Head/Face: Normocephalic, atraumatic. Eyes: Pupils equal round and reactive to light, extra-ocular motions intact. Lids and lashes normal. Conjunctiva and sclera are non-icteric and not injected. Cornea within normal limits. Periorbital areas with no swelling, redness, or edema. ENT: Nares patent. No nasal discharge, no septal abnormalities noted. Tympanic membranes are normal and external auditory canals are clear. Oropharynx with no redness, swelling, or masses, exudates, or evidence of obstruction, uvula midline. Mucous membranes moist. Chest/axilla: Normal chest wall appearance and motion. Nontender with no deformity. No lesions are appreciated. Cardiovascular: Regular rate and rhythm with a normal S1 and S2. No gallops, murmurs, or rubs. Normal PMI, no JVD. No pulse deficits. Respiratory: Lungs have equal breath sounds bilaterally, clear to auscultation and percussion. No rales, rhonchi or wheezes noted. No increased work of breathing, no retractions or nasal flaring. Skin: Warm, dry with normal turgor. Normal color with no rashes, no lesions, and no evidence of cellulitis. MS/ Extremity: Pulses equal, no cyanosis. Neurovascular intact. Full, normal range of motion. Neuro: Awake and alert, GCS 15, oriented to person, place, time, and situation. Cranial nerves II-XII grossly intact. Motor strength 5/5 in all extremities. Sensory grossly intact. Cerebellar exam normal. Normal gait. Psych: Awake, alert, with orientation to person, place and time. Behavior, mood, and affect are within normal limits. 02:25 Abdomen/GI: Tenderness to the epigastrium without rebound, guarding, distention.. Vital Signs: 00:05 BP 129 / 92; Pulse 88; Resp 15; Temp 98.4(O); Pulse Ox 99% ; Weight 83.91 kg; Height 5 vc1 ft. 8 in. (172.72 cm); Pain 10/10; 00:39 BP 138 / 91; Pulse 79; Resp 14 S; Pulse Ox 99% ; as6 01:53 BP 121 / 107; Pulse 76; Resp 17 S; Pulse Ox 100% on R/A; as6 04:09 BP 122 / 72; Pulse 71; Resp 16; Temp 98.6(O); Pulse Ox 99% on R/A; wm 00:05 Body Mass Index 28.13 (83.91 kg, 172.72 cm) vc1 MDM: 00:06 Patient medically screened. rt 02:53 Differential diagnosis: Cholelithiasis pancreatitis, bowel obstruction, appendicitis. rt Data reviewed: vital signs, nurses notes, old medical records, lab test result(s), EKG, radiologic studies. Consideration of Admission/Observation Patient was admitted/placed on observation. Management of patient was discussed with the following: Hospitalist: . I considered the following discharge prescriptions or medication management in the emergency department Medications were administered in the Emergency Department. See MAR. Response to treatment: the patient's symptoms have markedly improved after treatment. 03/20 00:12 Order name: CBC with Diff; Complete Time: 01:15 rt 03/20 00:12 Order name: CMP rt 03/20 00:12 Order name: Lipase rt 03/20 03:32 Order name: SARS RAPID rt 03/20 04:27 Order name: SARS-COV-2 Antigen Rapid EDMS 03/20 05:24 Order name: Hemoglobin A1c EDMS 03/20 00:12 Order name: CT Abd/Pelvis - IV Contrast Only rt 03/20 05:26 Order name: Lipid Profile EDMS 03/20 05:37 Order name: LDL, Direct EDMS 03/20 07:56 Order name: Glucose, Ancillary Testing EDMS 03/20 16:09 Order name: Glucose, Ancillary Testing EDMS 03/20 17:44 Order name: Glucose, Ancillary Testing EDCT Administered Medications: 00:32 Drug: morphine 4 mg Route: IVP; Infused Over: 4 mins; Site: left antecubital; as6 06:13 Follow up: Response: No adverse reaction as6 00:32 Drug: Zofran (Ondansetron) 4 mg Route: IVP; Site: left antecubital; as6 06:13 Follow up: Response: No adverse reaction as6 00:32 Drug: NS 0.9% 1000 ml Route: IV; Rate: 1 bolus; Site: left antecubital; as6 06:13 Follow up: Response: No adverse reaction; IV Status: Completed infusion; IV Intake: as6 1000ml 02:01 Drug: Dilaudid (HYDROmorphone) 0.5 mg Route: IVP; Site: left antecubital; as6 06:12 Follow up: Response: No adverse reaction as6 Disposition Summary: 03/20/22 02:53 Hospitalization Ordered Hospitalization Status: Inpatient Admission rt Provider: Wilton Skinner rt Condition: Stable rt Problem: new rt Symptoms: have improved rt Bed/Room Type: Standard rt Location: Telemetry/MedSurg (Inpatient)(03/20/22 20:04) cg Room Assignment: [facility](03/20/22 20:04) cg Diagnosis - Other chronic pancreatitis rt Forms: - Medication Reconciliation Form rt - SBAR form rt Signatures: Dispatcher [employer] Marie Alfaro RN RN cg Slawson, Ashby, RN RN as6 Any Boone RN RN vc1 Popeye Larson MD MD rt Corrections: (The following items were deleted from the chart) 03:58 02:53 Telemetry/MedSurg (Inpatient) rt cg 03:58 02:53 rt cg 20:04 03:58 [facility] ER HOLD cg cg 20:04 03:58 ERHOLD- cg cg
--- NOTE | 2022-03-20 02:54 | ER ---
Nurse's Notes [facility] Name: Javier Rutherford Age: 47 yrs Sex: Male : 1975 Arrival Date: 03/19/2022 Time: 23:29 Bed 8 Private MD: Diagnosis: Other chronic pancreatitis Presentation: 03/20 00:05 Chief complaint: Patient states: "I hurt really bad, it feels like it does when I have vc1 pancreatitis.". Coronavirus screen: Vaccine status: Patient reports receiving the 2nd dose of the covid vaccine. Moderna At this time, the client does not indicate any symptoms associated with coronavirus-19. Ebola Screen: No symptoms or risks identified at this time. Initial Sepsis Screen: Does the patient meet any 2 criteria? No. Patient's initial sepsis screen is negative. Does the patient have a suspected source of infection? No. Patient's initial sepsis screen is negative. Risk Assessment: Do you want to hurt yourself or someone else? Patient reports no desire to harm self or others. Onset of symptoms was March 20, 2022. 00:05 Method Of Arrival: Ambulatory vc1 00:05 Acuity: HANY 3 vc1 Triage Assessment: 00:13 General: Appears in no apparent distress. uncomfortable, Behavior is calm, cooperative, vc1 appropriate for age. Pain: Complains of pain in left upper quadrant Pain does not radiate. Pain currently is 10 out of 10 on a pain scale. EENT: No deficits noted. No signs and/or symptoms were reported regarding the EENT system. Neuro: Level of Consciousness is awake, alert, obeys commands, Oriented to person, place, time, situation, Appropriate for age. Cardiovascular: No deficits noted. Respiratory: Airway is patent Respiratory effort is even, unlabored, Respiratory pattern is regular, symmetrical. GI: Abdomen is flat, non-distended, pt belching Reports upper abdominal pain, nausea. : No deficits noted. Derm: No deficits noted. Musculoskeletal: Range of motion: intact in all extremities. Historical: - Allergies: 00:38 No Known Allergies; as6 - Home Meds: 00:11 tresiba [Active]; Novolog Sub-Q [Active]; metformin 1,000 mg Oral tab 1 tab 2 times per vc1 day [Active]; atorvastatin Oral once daily [Active]; fenofibrate Oral [Active]; gemfibrozil Oral [Active]; - PMHx: 00:11 Diabetes - NIDDM; fatty liver; Hyperlipidemia; Pancreatitis; vc1 - PSHx: 00:11 Cholecystectomy; hernia; Vasectomy; vc1 - Immunization history:: Adult Immunizations up to date, Client reports receiving the 2nd dose of the Covid vaccine. - Social history:: Smoking status: Patient denies any tobacco usage or history of. - Family history:: not pertinent. Screenin:38 [facility] ED Fall Risk Assessment (Adult) Score/Fall Risk Level 0 - 2 = Low Risk. Abuse as6 screen: Denies threats or abuse. Denies injuries from another. Nutritional screening: No deficits noted. Tuberculosis screening: No symptoms or risk factors identified. Assessment: 00:30 General: Appears uncomfortable, Behavior is calm, cooperative. Pain: Complains of pain as6 in left upper quadrant Pain radiates to back. Neuro: Level of Consciousness is awake, alert, obeys commands, Oriented to person, place, time, situation. Cardiovascular: Capillary refill < 3 seconds Patient's skin is warm and dry. Respiratory: Respiratory effort is even, unlabored, Respiratory pattern is regular, symmetrical. GI: Reports upper abdominal pain, nausea. 01:53 General: pt report improvements in nausea. but still c/o abd pain. provider notified . as6 Vital Signs: 00:05 BP 129 / 92; Pulse 88; Resp 15; Temp 98.4(O); Pulse Ox 99% ; Weight 83.91 kg; Height 5 vc1 ft. 8 in. (172.72 cm); Pain 10/10; 00:39 BP 138 / 91; Pulse 79; Resp 14 S; Pulse Ox 99% ; as6 01:53 BP 121 / 107; Pulse 76; Resp 17 S; Pulse Ox 100% on R/A; as6 04:09 BP 122 / 72; Pulse 71; Resp 16; Temp 98.6(O); Pulse Ox 99% on R/A; wm 00:05 Body Mass Index 28.13 (83.91 kg, 172.72 cm) vc1 ED Course: 03/19 23:29 Patient arrived in ED. ja2 23:56 Popeye Larson MD is Attending Physician. rt 03/20 00:11 Triage completed. vc1 00:13 Arm band placed on right wrist. vc1 00:14 Harshil Ruiz, RN is Primary Nurse. as6 00:25 Initial lab(s) drawn, by me, sent to lab. Inserted saline lock: 20 gauge in left wm antecubital area, using aseptic technique. Blood collected. 00:29 Bed in low position. Call light in reach. Side rails up X 1. wm 00:31 Lipase Sent. wm 00:31 CMP Sent. wm 00:31 CBC with Diff Sent. wm 01:47 CT Abd/Pelvis - IV Contrast Only In Process Unspecified. EDMS 02:53 Wilton Skinner is Hospitalizing Provider. rt 04:05 SARS RAPID Sent. wm 04:05 COVID swab sent to lab. wm 05:28 No provider procedures requiring assistance completed. Patient admitted, IV remains in as6 place. 07:12 Primary Nurse role handed off by Harshil Ruiz RN bd 17:21 Sandy Li, ARACELI is Primary Nurse. ld1 19:44 Primary Nurse role handed off by Sandy Li, ARACELI wm Administered Medications: 00:32 Drug: morphine 4 mg Route: IVP; Infused Over: 4 mins; Site: left antecubital; as6 06:13 Follow up: Response: No adverse reaction as6 00:32 Drug: Zofran (Ondansetron) 4 mg Route: IVP; Site: left antecubital; as6 06:13 Follow up: Response: No adverse reaction as6 00:32 Drug: NS 0.9% 1000 ml Route: IV; Rate: 1 bolus; Site: left antecubital; as6 06:13 Follow up: Response: No adverse reaction; IV Status: Completed infusion; IV Intake: as6 1000ml 02:01 Drug: Dilaudid (HYDROmorphone) 0.5 mg Route: IVP; Site: left antecubital; as6 06:12 Follow up: Response: No adverse reaction as6 Medication: 00:15 VIS not applicable for this client. vc1 Intake: 06:13 IV: 1000ml; Total: 1000ml. as6 Outcome: 02:53 Decision to Hospitalize by Provider. rt 05:28 Admitted to ER Hold. Please see [facility] for further documentation. as6 05:28 Condition: stable 05:28 Instructed on the need for admit. 20:24 Patient left the ED. as6 Signatures: Dispatcher [employer] EDMS Marcie Marie Lauren RN RN ld1 Jo Ann Glaser Светлана Lambert Ashby, RN RN as6 Any Boone RN RN vc1 Popeye Larson MD MD rt Corrections: (The following items were deleted from the chart) 00:32 00:29 Inserted saline lock: 20 gauge in left antecubital area, using aseptic technique. Blood collected. 00:32 00:29 Initial lab(s) drawn, by me, sent to lab. [facility]
--- NOTE | 2022-03-20 03:12 | P.HP ---
Certification for Inpatient Patient admitted to: Inpatient With expected LOS: >2 Midnights Patient will require the following post-hospital care: None Practitioner: I am a practitioner with admitting privileges, knowledge of patient current condition, hospital course, and medical plan of care. Services: Services provided to patient in accordance with Admission requirements found in Title 42 Section 412.3 of the Code of Federal Regulations Patient History Date of Service: 03/20/22 Reason for admission: Pancreatitis History of Present Illness: Patient is a 47-year-old male with history of insulin dependent type 2 diabetes, pancreatitis, hyperlipidemia, and hypertriglyceridemia who presented to the emergency department with complaints of epigastric pain that he reports is similar to his previous episodes of pancreatitis. He states that he has been compliant with his diabetes regimen as well as his fenofibrate. Today his lipase is 2188, no other significant lab abnormalities. Triglycerides pending. CT abdomen pelvis demonstrated uncomplicated acute pancreatitis. ED provider wishes to admit patient for further evaluation and management of acute pancreatitis. Allergies No Known Allergies Allergy (Verified 10/15/21 03:43) Home medications list reviewed: Yes Home Medications: Metformin HCl 1,000 mg PO BID 03/07/20 Insulin NPH Human Isophane [Novolin N Flexpen] 20 units SQ BID 03/11/21 Ensure Clear 237 ml PO BID #20 can 12/14/21 Fenofibrate [Tricor*] 160 mg PO DAILY #30 tab 12/14/21 Mag Hydrox/Al Hydrox/Simeth [Maalox Suspension] 15 ml PO TID PRN #355 ml 12/14/21 Pantoprazole [Protonix Tab] 40 mg PO DAILY #30 tab 12/14/21 - Past Medical/Surgical History Diabetic: Yes -: pancreatitis -: hyperlipidemia -: Insulin Dependent T2D -: fatty liver -: Hypertriglyceridemia -: Cholecystectomy -: Hernia sx -: vasectomy Psychosocial/ Personal History: 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 and lives with his - Family History Sister -: Diabetes, Cancer Mother -: Diabetes Brother -: GI disease, Diabetes Notes: Pancreatitis - Social History Smoking Status: Never smoker Alcohol use: No CD- Drugs: No Caffeine use: No Place of Residence: Home Review of Systems Gastrointestinal: Nausea, Vomiting, Abdominal Pain Physical Examination - Vital Signs Temperature: 98.4 F Blood Pressure: 121/107 Pulse: 76 Respirations: 17 Pulse Ox (%): 100 - Physical Exam General: Alert, In no apparent distress HEENT: Atraumatic, PERRLA, EOMI, Sclerae nonicteric Neck: Supple, 2+ carotid pulse no bruit, No LAD, Without JVD or thyroid abnormality Respiratory: Clear to auscultation bilaterally, Normal air movement Cardiovascular: Regular rate/rhythm, Normal S1 S2 Gastrointestinal: Normal bowel sounds, Non-distended, Tenderness Musculoskeletal: No tenderness Integumentary: No rashes Neurological: Normal speech, Normal strength at 5/5 x4 extr, Normal affect - Studies Laboratory Data (last 24 hrs) 03/20/22 00:25: Sodium 137, Potassium 4.0, BUN 16, Creatinine 0.79, Glucose 233 H, Total Bilirubin 0.7, AST 30, ALT 50, Alkaline Phosphatase 70, Lipase 2188 H 03/20/22 00:25: WBC 5.50, Hgb 13.3 L, Hct 39.7, Plt Count 220 Assessment and Plan - Problems (Diagnosis) (1) Acute pancreatitis Current Visit: Yes Status: Acute Qualifiers: Pancreatitis type: unspecified pancreatitis type Acute pancreatitis complication: no infection or necrosis Qualified Code(s): K85.90 - Acute pancreatitis without necrosis or infection, unspecified (2) Hyperlipidemia Current Visit: Yes Status: Chronic Qualifiers: Hyperlipidemia type: mixed hyperlipidemia Qualified Code(s): E78.2 - Mixed hyperlipidemia (3) Diabetes mellitus Current Visit: Yes Status: Chronic Qualifiers: Diabetes mellitus type: type 2 Diabetes mellitus shelter insulin use: with shelter use Diabetes mellitus complication status: with hyperglycemia Qualified Code(s): E11.65 - Type 2 diabetes mellitus with hyperglycemia; 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 NPO, aggressive IV fluids, as needed pain medications and antiemetics. Triglyceride level pending. Patient has history of hypertriglyceridemia and required insulin drip on previous admissions. Q6H glucose checks with aggressive sliding scale. A1c ordered. Trend lipase daily. Monitor and replete electrolytes per protocol. Reconcile and continue home medications Lovenox for VTE prophylaxis. Full code Discharge Plan: Home Plan to discharge in: Greater than 2 days - Advance Directives Does patient have a Living Will: No Does patient have a Durable POA for Healthcare: No - Code Status/Comfort Care Code Status Assessed: Yes Code Status: Full Code Physician Review: Patient Assessed, Agree with Above Assessment and Plan Critical Care: No Time Spent Managing Pts Care (In Minutes): 50
[2022-03-20] MEDS ORDERED: ONDANSETRON 4 MG/2 ML VIAL IV PRN (03:22)
[2022-03-20] MEDS ORDERED: ACETAMINOPHEN 500 MG TAB PO PRN (03:22)
[2022-03-20] MEDS: NA CHLORIDE 0.9% 1,000 ML IV SCH ×3 (04:00→17:20)
[2022-03-20 04:27] LABS: SARS-CoV-2 Antigen Rapid Res Negative (Negative)
[2022-03-20] MEDS: HYDROMORPHONE HCL 0.5 MG/0.5 ML INJ IV PRN ×5 (05:00→23:46)
[2022-03-20 05:25] LABS: HDL Cholesterol 42 mg/dL (40-60)
[2022-03-20 05:37] LABS: LDL, Direct 141 mg/dL (100-129)
[2022-03-20 06:03] VITALS: BMI 28.1
[2022-03-20] MEDS: INSULIN -REGULAR HUMAN 50 UNIT/0.5 ML ML SQ SCH ×4 (07:30→20:16)
[2022-03-20] MEDS ORDERED: INSULIN -REGULAR HUMAN 50 UNIT/0.5 ML ML ONE (07:55)
[2022-03-20] MEDS ORDERED: ENOXAPARIN 40 MG/0.4 ML SQ ONE (07:55)
[2022-03-20] MEDS: ENOXAPARIN 40 MG/0.4 ML SQ SCH (08:15)
--- NOTE | 2022-03-20 12:46 | RAD REPORT ---
EXAM DESCRIPTION: CT Abdomen and Pelvis With Intravenous Contrast CLINICAL HISTORY: The patient is 47 years old and is Male; abdominal pain TECHNIQUE: Axial computed tomography images of the abdomen and pelvis with intravenous contrast. S agittal and coronal reformatted images were created and reviewed. This CT exam was performed using one or more of the following dose reduction techniques: automated exposure control, adjustment of t he mA and/or kV according to patient size, and/or use of iterative reconstruction technique. COMPARISON: December 13, 2021. FINDINGS: Lung bases: Unremarkable. No mass. No consolidation. ABDOMEN: Liver: Unremarkable. No mass. Gallbladder and bile ducts: Gallbladder is surgically absent. No ductal dilation. Pancreas: Mild peripancreatic stranding which may represent mild acute pancreatitis. No ductal dilation. Spleen: Unremarkable. No splenomegaly. Adrenals: Unremarkable. No mass. Kidneys and ureters: Unremarkable. No solid mass. No hydronephrosis. Stomach and bowel: Scattered colonic diverticula. No obstruction. No mucosal thickening. PELVIS: Appendix: No findings to suggest acute appendicitis. Bladder: Unremarkable. Reproductive: Unremarkable as visualized. ABDOMEN and PELVIS: Intraperitoneal space: Unremarkable. No free air. No significant fluid collection. Bones/joints: No acute fracture. No dislocation. Soft tissues: Unremarkable. Vasculature: Unremarkable. No abdominal aortic aneurysm. Lymph nodes: Prominent left periaortic lymph node at the level of the left kidney. IMPRESSION: Mild peripancreatic stranding which may represent mild acute pancreatitis. Electronically signed by: Burt Deutsch MD 03/20/2022 2:27 AM MANAGER INTERMEDIATE Due to temporary technical issues with the PACS/Fluency reporting system, reports are being signed by the in house radiologists without review as a courtesy to insure prompt reporting. The interpreting radiologist is fully responsible for the content of the report.
--- NOTE | 2022-03-20 17:29 | P.PN ---
Date of Service: 03/20/22 Patient seen and examined. He stated his pain is well controlled. Patient with hypertriglyceridemia induced pancreatitis. Triglyceride level not markedly elevated. At this time, no need for insulin drip. Manage hyperglycemia with insulin sliding scale and long-acting insulin. Check serial lipase. Keep n.p.o. Continue hypertriglyceridemia medications.
[2022-03-20 20:34] VITALS: O2SAT 99
[2022-03-21] MEDS ORDERED: INSULIN -REGULAR HUMAN 50 UNIT/0.5 ML ML SQ SCH
[2022-03-21] MEDS: NA CHLORIDE 0.9% 1,000 ML IV SCH
[2022-03-21] MEDS: HYDROMORPHONE HCL 0.5 MG/0.5 ML INJ IV PRN ×2 (04:45→08:57)
[2022-03-21 05:54] LABS: Absolute Lymphocytes (CBC) 1.4 K/uL (0.7-4.9); Hematocrit 33.8 % (39.6-49.0); Lymphocytes % 37.4 % (15.3-44.8); MCV 81.5 fL (80-100); MPV 8.7 fL (7.6-11.3); RBC Red Blood Cell Count 4.14 M/uL (4.33-5.43)
[2022-03-21 06:19] LABS: Bilirubin Total 0.6 mg/dL (0.2-1.0); Phosphorus 3.2 mg/dL (2.5-4.9); Potassium 3.5 mmol/L (3.5-5.1); Protein, Total 6.6 g/dL (6.4-8.2)
[2022-03-21] MEDS: ENOXAPARIN 40 MG/0.4 ML SQ SCH (08:10)
--- NOTE | 2022-03-21 08:54 | P.DS ---
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 He stated that he has been compliant with his diabetes regimen as well as his fenofibrate. His lipase in the ED was 2188, no other significant lab abnormalities. Triglycerides elevated to 482. CT abdomen pelvis demonstrated uncomplicated acute pancreatitis. Patient was hospitalized for management. Hospital Course: Patient admitted to the medical floor and treated supportively with IV fluid, kept n.p.o. overnight lipase level monitored. Hypertriglyceridemia was managed with his home medications. Lipase level trended down, patient's abdominal pain resolved and he tolerated diet. He is ambulatory and is deemed stable for discharge. He is given refill for his medications-fenofibrate, gemfibrozil, NovoLog and Tresiba. Patient advised to follow-up with his PCP and to be compliant with his medications. Vital Signs/Physical Exam: Temp Pulse Resp BP Pulse Ox 96.8 F 61 16 118/68 95 03/21/22 08:00 03/21/22 08:00 03/21/22 08:00 03/21/22 08:00 03/21/22 08:00 General: Alert, In no apparent distress HEENT: Mucous membr. moist/pink Neck: JVD not distended Respiratory: Clear to auscultation bilaterally, Normal air movement Cardiovascular: No edema, Regular rate/rhythm, Normal S1 S2 Gastrointestinal: Soft and benign, Non-distended, No tenderness Musculoskeletal: No swelling Integumentary: No rashes Neurological: Normal strength at 5/5 x4 extr Laboratory Data at Discharge: WBC 3.80 K/uL (4.3-10.9) L 03/21/22 05:29 Hgb 11.3 g/dL (13.6-17.9) L 03/21/22 05:29 Hct 33.8 % (39.6-49.0) L 03/21/22 05:29 Plt Count 186 K/uL (152-406) 03/21/22 05:29 Sodium 140 mmol/L (136-145) 03/21/22 05:29 Potassium 3.5 mmol/L (3.5-5.1) 03/21/22 05:29 BUN 13 mg/dL (7-18) 03/21/22 05:29 Creatinine 0.68 mg/dL (0.70-1.30) L 03/21/22 05:29 Glucose 98 mg/dL (74-106) 03/21/22 05:29 Phosphorus 3.2 mg/dL (2.5-4.9) 03/21/22 05:29 Magnesium 2.0 mg/dL (1.6-2.4) 03/21/22 05:29 Total Bilirubin 0.6 mg/dL (0.2-1.0) 03/21/22 05:29 AST 42 U/L (15-37) H 03/21/22 05:29 ALT 62 U/L (16-61) H 03/21/22 05:29 Alkaline Phosphatase 91 U/L (45-117) 03/21/22 05:29 Triglycerides 482 mg/dL (<150) H 03/20/22 00:25 Triglycerides Cancelled 03/20/22 00:25 Cholesterol 253 mg/dL (<200) H 03/20/22 00:25 Cholesterol Cancelled 03/20/22 00:25 LDL Cholesterol Direct 141 mg/dL (100-129) H 03/20/22 00:25 HDL Cholesterol 42 mg/dL (40-60) 03/20/22 00:25 HDL Cholesterol Cancelled 03/20/22 00:25 Cholesterol/HDL Ratio 6.02 03/20/22 00:25 Cholesterol/HDL Ratio Cancelled 03/20/22 00:25 Lipase 620 U/L (73-393) H 03/21/22 05:29 Home Medications: Metoclopramide HCl [Reglan] 10 mg PO TIDWM PRN 03/20/22 Fenofibrate [Tricor*] 160 mg PO DAILY #30 tab 03/21/22 Insulin Aspart [Novolog Flexpen] 20 units SQ BID #15 ml 03/21/22 Insulin Degludec [Tresiba Flextouch U-200] 30 units SQ DAILY #15 ml 03/21/22 Metformin HCl 1,000 mg PO BID #60 tab 03/21/22 Pantoprazole [Protonix Tab*] 40 mg PO DAILY #30 tab 03/21/22 gemfibroziL [Gemfibrozil] 600 mg PO BID #60 tab 03/21/22 New Medications: gemfibroziL [Gemfibrozil] 600 mg PO BID #60 tab Metformin HCl 1,000 mg PO BID #60 tab Insulin Aspart [Novolog Flexpen] 20 units SQ BID #15 ml Pantoprazole [Protonix Tab*] 40 mg PO DAILY #30 tab Insulin Degludec [Tresiba Flextouch U-200] 30 units SQ DAILY #15 ml Fenofibrate [Tricor*] 160 mg PO DAILY #30 tab Diet: ADA Activity: Ad stanley Followup: Erwin Merrill DO, DO [Primary Care Provider] - 1-2 Weeks Time spent managing pt's care (in minutes): 34
[2022-03-21] MEDS ORDERED: KCL 20 MEQ/100 mL IVPB 20 MEQ/100 ML BAG IV SCH (09:00)
[2022-03-21] MEDS ORDERED: FENOFIBRATE 160 MG TAB PO SCH (09:00)
[2022-03-21 12:19] VITALS: BP 121/71; TEMP 97.3
== END 2022-03-21 14:50 | disposition home or self-care (01) | DRG 440 ==
LOC: ER 23:28 → ERHOLD 03-20 03:07 → 2ND 03-20 20:12
PROVIDERS: ADMIT Internal Medicine; ATTEND Internal Medicine
DX: K85.90 Acute pancreatitis without necrosis or infection, unspecified (principal); E78.1 Pure hyperglyceridemia; E78.2 Mixed hyperlipidemia; E11.65 Type 2 diabetes mellitus with hyperglycemia; K76.0 Fatty (change of) liver, not elsewhere classified; K86.1 Other chronic pancreatitis; K21.9 Gastro-esophageal reflux disease without esophagitis; Z79.4 Long term (current) use of insulin; Z79.84 Long term (current) use of oral hypoglycemic drugs; Z90.49 Acquired absence of other specified parts of digestive tract; Z79.899 Other long term (current) drug therapy; Z20.822 Contact with and (suspected) exposure to COVID-19
CPT/HCPCS: 36415; 74177; 80053; 80061; 82947; 83036; 83690; 83735; 84100; 85025; 87811; 96361; 96374; 96375; 99285; J1170; J1650; J1815; J2405; J3480; J7030; Q9967

== ENCOUNTER 2024-02-08 13:39 | Inpatient (IN) | payer OTHER ==
[2024-02-08] MEDS ORDERED: ONDANSETRON 4 MG/2 ML VIAL ONE (14:04)
[2024-02-08] MEDS ORDERED: NA CHLORIDE 0.9% 1,000 ML ONE ×2 (14:05→17:21)
[2024-02-08] MEDS ORDERED: FAMOTIDINE 20 MG/2 ML VIAL IV ONE (14:05)
[2024-02-08] MEDS ORDERED: HYDROMORPHONE HCL 1 MG/ML INJ ONE (14:05)
[2024-02-08 14:31] LABS: Absolute Basophils 0.2 K/uL (0-0.5); Absolute Eosinophils 0.1 K/uL (0-0.5); Absolute Lymphocytes (CBC) 0.8 K/uL (0.7-4.9); Absolute Monocytes 0.6 K/uL (0.1-1.3); Absolute Neutrophil 8.9 K/uL (1.8-8.0); Basophils % 1.6 % (0-1.3); Eosinophils % 0.5 % (0-4.4); Hematocrit 42.9 % (39.6-49.0); Hemoglobin 15.7 g/dL (13.6-17.9); Lymphocytes % 7.9 % (15.3-44.8); MCH 30.4 pg (27.0-35.0); MCHC 36.6 g/dL (32.0-36.0); MCV 82.9 fL (80-100); MPV 10.9 fL (7.6-11.3); Monocytes % 5.9 % (3.3-12.3); Neutrophils % 84.1 % (41.7-73.7); Platelets 221 thou/uL (152-406); RBC Red Blood Cell Count 5.18 M/uL (4.33-5.43)
--- NOTE | 2024-02-08 14:54 | RAD REPORT ---
EXAMINATION: ULTRASOUND DUPLEX OF SCROTUM AND TESTICLES CLINICAL INDICATION: Male, 49 years, PAIN TECHNIQUE: Duplex scan of the scrotal contents was performed including real-time color and spectral D oppler ultrasonography with arterial inflow and venous outflow. COMPARISON: No prior exam. FINDINGS: RIGHT TESTICLE AND EPIDIDYMIS: The right testicle is normal in size, measuring 4.2 x 3.1 x 2.2 cm. Normal, homogeneous echotexture with no focal lesion seen. Small calcifications. The right epididymis is normal. Color Doppler flow in the right testicle is normal. LEFT TESTICLE AND EPIDIDYMIS: The left testicle is normal in size, measuring 3.7 x 2.9 x 2.1 cm. Normal, homogeneous echotexture with no focal lesion seen. Small calcifications noted. The left epididymis is normal. Color Doppler flow in the left testicle is normal. ADDITIONAL FINDINGS: None. IMPRESSION: No acute or significant abnormalities.
[2024-02-08 14:55] LABS: Differential Total Cells Count 100; Lymphocytes 24 % (15-42); Monocytes 3 % (0-10); Platelet Estimate ADEQ; Segmented Neutrophils 73 % (40-80)
[2024-02-08 14:56] LABS: Blood Morphology Comment NOT SEEN (NOT SEEN)
[2024-02-08 16:59] LABS: Albumin 3.5 g/dL (3.4-5.0); Albumin/Globulin Ratio 0.8 (1.1-1.8); Bilirubin Total 0.9 mg/dL (0.2-1.0); Globulin 4.6 g/dL (2.3-3.5); Protein, Total 8.1 g/dL (6.4-8.2)
--- NOTE | 2024-02-08 17:17 | RAD REPORT ---
EXAMINATION: CT ABDOMEN AND PELVIS WITH CONTRAST CLINICAL INDICATION: ABD PAIN TECHNIQUE: CT abdomen and pelvis was performed, after the administration of IV contrast, as per [facility] protocol. Axial, sagittal and coronal reconstructions were obtained. One or more of the following dose reduction techniques were used: Automated exposure control, adjustment of the mA and k V according to patient size, and iterative reconstruction. Unless otherwise specified, incidental findings do not require dedicated imaging follow-up. COMPARISON: 06/10/2022 FINDINGS: LOWER CHEST: The visualized lung bases are clear. LIVER: Mild fatty liver is present. No focal lesion or biliary dilatation is seen. Cholecystectomy clips. SPLEEN: Normal size. No focal lesion. PANCREAS: Calcifications in the pancreatic head suspicious for chronic pancreatitis. There is subtle edema seen in the pancreatic head region as well. ADRENALS: Normal; no mass. KIDNEYS: Normal size and contour. No hydronephrosis. GASTROINTESTINAL TRACT: No evidence of free air, significant intra-abdominal free fluid, bowel obstru ction or abscess. APPENDIX: Normal appendix. LYMPH NODES: No lymphadenopathy. MUSCULOSKELETAL: No acute or suspicious osseous abnormality. ADDITIONAL FINDINGS: None. IMPRESSION: Mild acute on chronic pancreatitis is possible. Correlation with amylase/lipase levels is advised.
[2024-02-08] MEDS ORDERED: HYDROMORPHONE HCL 0.5 MG/0.5 ML INJ ONE (17:20)
[2024-02-08] MEDS ORDERED: DIAZEPAM 10 MG/2 ML INJ SYRINGE ONE (17:20)
[2024-02-08 17:44] LABS: Sqamous Epithelial None Seen /HPF (None Seen); Urine Bacteria <20 /HPF (<20); Urine Bilirubin NEGATIVE (Negative); Urine Blood Negative (Negative); Urine Clarity Clear (Clear); Urine Color Light-Yellow (Yellow); Urine Culture Reflex Order NOT NEEDED; Urine Glucose 4+ (Over) (Negative); Urine Ketones 3+ (Negative); Urine Microscopic Reflex YN ORDER UMIC; Urine Nitrite NEGATIVE (Negative); Urine Protein TRACE (Negative); Urine RBC <5 /HPF (None Seen); Urine Urobilinogen Normal (Normal); Urine WBC <5 /HPF (<5); Urine pH 5.5 (5.0-7.0)
[2024-02-08 18:05] LABS: Specific Gravity > 1.030 (1.005-1.030)
--- NOTE | 2024-02-08 18:25 | ER ---
Nurse's Notes [facility] Name: Javier Rutherford Age: 49 yrs Sex: Male : 1975 Arrival Date: 02/08/2024 Time: 13:39 Bed 15 Private MD: Diagnosis: Diabetes mellitus due to underlying condition with ketoacidosis;Other acute pancreatitis without necrosis or infection Presentation: 02/07 13:53 Chief complaint: Patient states: abd pain and vomiting that began this morning. HX of ss pancreatitis. Coronavirus screen: Client denies travel out of the [place] in the last 14 days. Ebola Screen: Patient denies exposure to infectious person. Patient denies travel to an Ebola-affected area in the 21 days before illness onset. Initial Sepsis Screen: Does the patient meet any 2 criteria? No. Patient's initial sepsis screen is negative. Does the patient have a suspected source of infection? No. Patient's initial sepsis screen is negative. Risk Assessment: Do you want to hurt yourself or someone else? Patient reports no desire to harm self or others. Onset of symptoms was February 08, 2024. 13:53 Method Of Arrival: Ambulatory ss 13:53 Acuity: HANY 3 ss Historical: - Allergies: 13:54 No Known Allergies; ss - PMHx: 13:54 Diabetes - NIDDM; fatty liver; Hyperlipidemia; Pancreatitis; ss - PSHx: 13:54 Cholecystectomy; hernia; Vasectomy; ss - Immunization history:: Adult Immunizations unknown. - Infectious Disease History:: Denies. - Social history:: Smoking status: Patient reports the use of cigarette tobacco products, denies chronic smoking, but will smoke occasionally. Screenin:15 [facility] ED Fall Risk Assessment (Adult) History of falling in the last 3 months, ko1 including since admission No falls in past 3 months (0 pts) Confusion or Disorientation No (0 pts) Intoxicated or Sedated No (0 pts) Impaired Gait No (0 pts) Mobility Assist Device Used No (0 pt) Altered Elimination No (0 pt) Score/Fall Risk Level 0 - 2 = Low Risk Oriented to surroundings, Maintained a safe environment, Educated pt \T\ family on fall prevention, incl call for assistance when getting out of bed, Assessed \T\ reinforced patient's understanding of fall precautions, Provided non-skid footwear. Abuse screen: Denies threats or abuse. Denies injuries from another. Nutritional screening: No deficits noted. Tuberculosis screening: No symptoms or risk factors identified. Assessment: 14:15 General: Appears distressed, uncomfortable, Behavior is appropriate for age. Pain: ko1 Complains of pain in left upper quadrant. Neuro: No deficits noted. Cardiovascular: No deficits noted. Respiratory: No deficits noted. GI: Bowel sounds present X 4 quads. Abdomen is tender to palpation in left upper quadrant. : No deficits noted. EENT: No deficits noted. Derm: No deficits noted. Musculoskeletal: No deficits noted. 19:00 Reassessment: Patient appears in no apparent distress at this time. Patient and/or kj2 family updated on plan of care and expected duration. Pain level reassessed. Patient is alert, oriented x 3, equal unlabored respirations, skin warm/dry/pink. 20:00 Reassessment: Patient appears in no apparent distress at this time. Patient and/or kj2 family updated on plan of care and expected duration. Pain level reassessed. Patient is alert, oriented x 3, equal unlabored respirations, skin warm/dry/pink. Vital Signs: 13:53 BP 130 / 90; Pulse 101; Resp 21; Temp 98.4(TE); Pulse Ox 100% on R/A; Weight 83.01 kg; ss Height 5 ft. 8 in. ; Pain 10/10; 16:09 BP 136 / 80; Pulse 82; Resp 16; Pulse Ox 98% ; ko1 18:21 BP 135 / 80; Pulse 92; Resp 15; Pulse Ox 97% ; ko1 19:00 BP 144 / 84; Pulse 90; Resp 18; Pulse Ox 100% on R/A; kj2 20:46 BP 154 / 88; Pulse 90; Resp 18; Pulse Ox 100% on R/A; kj2 13:53 Body Mass Index 27.82 (83.01 kg, 172.72 cm) ss 13:53 Pain Scale: Adult ss ED Course: 13:42 Patient arrived in ED. im 13:46 Sarah Costa FNP-C is PHCP. kb 13:46 Bret Lopez MD is Attending Physician. kb 13:54 Triage completed. ss 13:54 Arm band placed on right wrist. ss 13:58 Lynn Multani, RN is Primary Nurse. ko1 14:15 Patient has correct armband on for positive identification. Bed in low position. Call ko1 light in reach. Side rails up X 1. Provided Education on: labs, meds. Pulse ox on. NIBP on. Door closed. Noise minimized. Lights dimmed. Warm blanket given. Pillow given. 14:15 Inserted saline lock: 20 gauge in left antecubital area, using aseptic technique. Blood ko1 collected. Flushed with 10 mL NS. 14:20 CBC with Diff Sent. ko1 14:20 CMP Sent. ko1 14:20 Lipase Sent. ko1 14:38 PHCP role handed off by Sarah Costa FNP-C cp 14:38 Bret Dudley PA is PHCP. cp 14:47 US Scrotum Testicles In Process Unspecified. EDMS 15:00 Lab(s) recollected, by me, sent to lab. ko1 15:55 Lab(s) recollected, by me, sent to lab. ko1 17:09 CT Abd/Pelvis - IV Contrast Only In Process Unspecified. EDMS 17:30 Urine collected: clean catch specimen, clear. ko1 18:15 First set of blood cultures drawn by me, Second set of blood cultures drawn by me. ko1 18:16 Blood Culture Adult (2) Sent. ko1 18:16 Lactate w/ 2H reflex if indic. Sent. ko1 18:21 No provider procedures requiring assistance completed. ko1 18:23 Arpan Mckeon MD is Hospitalizing Provider. cp 18:25 Patient admitted, IV remains in place. ko1 Administered Medications: 13:54 CANCELLED (Physician Discretion): morphineor iv 4 mg IVP once over 4 mins kb 14:21 Drug: Famotidine IVP 20 mg IVP once; dilute with 10 mL 0.9% NaCl; give over 2 minutes ko1 Route: IVP; Site: left antecubital; 14:36 Follow up: Response: No adverse reaction ko1 14:21 Drug: Ondansetron IVP 4 mg IVP once; over 2 minutes Route: IVP; Site: left antecubital; ko1 14:36 Follow up: Response: No adverse reaction ko1 14:21 Drug: NS 0.9% IV 1000 ml IV at 1 bolus Per protocol; to be given as a bolus over 60 ko1 minutes Route: IV; Rate: 1 bolus; Site: left antecubital; 15:45 Follow up: Response: No adverse reaction; IV Status: Completed infusion; IV Intake: ko1 1000ml 14:21 Drug: HYDROmorphone IVP 1 mg IVP once Route: IVP; Site: left antecubital; ko1 14:36 Follow up: Response: No adverse reaction; Pain is decreased ko1 17:28 Drug: NS 0.9% IV 1000 ml IV at 1000 ml once; to be given as a bolus over 60 minutes ko1 Route: IV; Rate: 1000 ml; Site: left antecubital; 17:28 Drug: Diazepam IVP 5 mg IVP once Route: IVP; Site: left antecubital; ko1 17:44 Follow up: Response: No adverse reaction; Pain is decreased; Anxiety decreased ko1 17:28 Drug: HYDROmorphone IVP 0.5 mg IVP once Route: IVP; Site: left antecubital; ko1 17:44 Follow up: Response: No adverse reaction; Pain is decreased ko1 18:27 Not Given (BG 251): insulin regular human10 units IVP once; give if blood glucose ko1 greater than 300 Medication: 14:15 VIS not applicable for this client. ko1 Intake: 15:45 IV: 1000ml; Total: 1000ml. ko1 Outcome: 18:24 Decision to Hospitalize by Provider. cp 21:16 Admitted to Med/surg accompanied by tech, via stretcher, room 222, kj2 21:16 Condition: stable kj2 21:16 Instructed on the need for admit, 21:17 Patient left the ED. kj2 Signatures: Dispatcher [employer] EDSarah Parks, CONNIE MELTONP-Vandana Chan, RN RN Bret Kahn PA PA cp Lynn Multani, ARACELI RN ko1 Pau Gandhi Krystal, RN RN kj2
--- NOTE | 2024-02-08 18:25 | EDPHYS ---
Physician Documentation [facility] Name: Javier Rutherford Age: 49 yrs Sex: Male : 1975 Arrival Date: 02/08/2024 Time: 13:39 Bed 15 Private MD: SELENE Physician Bret Lopez HPI: 02/07 13:51 This 49 yrs old Male presents to ER via Unassigned with complaints of kb Abdominal Pain, Vomiting. 13:51 Pt is a 49 year old male who presents for upper abd pain and nausea that started today. kb Reports pain is similar to previous episodes of pancreatitis. Also reports pain in testicles which is also similar to previous episodes of pancreatitis. Historical: - Allergies: 13:54 No Known Allergies; ss - PMHx: 13:54 Diabetes - NIDDM; fatty liver; Hyperlipidemia; Pancreatitis; ss - PSHx: 13:54 Cholecystectomy; hernia; Vasectomy; ss - Immunization history:: Adult Immunizations unknown. - Infectious Disease History:: Denies. - Social history:: Smoking status: Patient reports the use of cigarette tobacco products, denies chronic smoking, but will smoke occasionally. ROS: 13:51 Constitutional: As per HPI kb Exam: 13:51 Head/Face: Normocephalic, atraumatic. ENT: Moist Mucous membranes Cardiovascular: kb Regular rate Respiratory: Respirations even and unlabored. No increased work of breathing. Talking in full sentences Skin: Warm, dry with normal turgor. Normal color. MS/ Extremity: Pulses equal, no cyanosis. Neurovascular intact. Full, normal range of motion. Neuro: Awake and alert, GCS 15, oriented to person, place, time, and situation. 13:51 Constitutional: The patient appears alert, awake, in obvious pain, 13:56 Abdomen/GI: Inspection: abdomen appears normal, Bowel sounds: normal, Palpation: soft, kb in all quadrants, moderate abdominal tenderness, in the left upper quadrant, Vital Signs: 13:53 BP 130 / 90; Pulse 101; Resp 21; Temp 98.4(TE); Pulse Ox 100% on R/A; Weight 83.01 kg; ss Height 5 ft. 8 in. ; Pain 10/10; 16:09 BP 136 / 80; Pulse 82; Resp 16; Pulse Ox 98% ; ko1 18:21 BP 135 / 80; Pulse 92; Resp 15; Pulse Ox 97% ; ko1 19:00 BP 144 / 84; Pulse 90; Resp 18; Pulse Ox 100% on R/A; kj2 20:46 BP 154 / 88; Pulse 90; Resp 18; Pulse Ox 100% on R/A; kj2 13:53 Body Mass Index 27.82 (83.01 kg, 172.72 cm) ss 13:53 Pain Scale: Adult ss MDM: 13:47 Medical Screening Exam initiated kb 14:39 Transition of care: After a detail discussion of the patient's case, care is kb transferred to Bret CHIRINOS. 19:00 Data reviewed: vital signs, nurses notes, lab test result(s), radiologic studies, CT cp scan, and as a result, I will admit patient. 19:00 Differential diagnosis: bowel obstruction, non-specific abd pain, pancreatitis, cp Pyelonephritis, Ureterolithiasis, urinary tract infection. Management of patient was discussed with the following: Hospitalist: Lori [facility] will admit after discussion. Care significantly affected by the following chronic conditions: Diabetes. Counseling: I had a detailed discussion with the patient and/or guardian regarding the historical points, exam findings, and any diagnostic results supporting the discharge/admit diagnosis, lab results, radiology results, the need for further work-up and treatment in the hospital. Response to treatment: the patient's symptoms have mildly improved after treatment. 02/07 13:52 Order name: CBC with Diff; Complete Time: 16:17 kb 02/07 16:18 Interpretation: Normal except: MCHC 36.6; ERNESTINE% 84.1; LYM% 7.9; BASO% 1.6; NEUT A 8.9. cp 02/07 13:52 Order name: CMP; Complete Time: 17:48 kb 02/07 17:12 Interpretation: Normal except: CL 108; CO2 15; ANION GAP 21.0; GLUC 337; AST 58; GLOB cp 4.6; A/G 0.8. 02/07 13:52 Order name: Lipase; Complete Time: 17:48 kb 02/07 17:48 Interpretation: Abnormal: LIP 1621. cp 02/07 13:52 Order name: Urinalysis w/ reflexes; Complete Time: 18:19 kb 02/07 14:56 Order name: Manual Differential; Complete Time: 16:17 EDMS 02/07 17:50 Order name: Lactate w/ 2H reflex if indic.; Complete Time: 18:53 cp 02/07 17:50 Order name: Blood Culture Adult (2) cp 02/07 17:50 Order name: BETA HYDROXYBUTYRATE; Complete Time: 18:53 cp 02/07 18:54 Interpretation: Abnormal. 02/07 18:23 Order name: Glucose, Ancillary Testing; Complete Time: 18:53 EDTN 02/07 19:26 Order name: Basic Metabolic Panel EDTN 02/07 19:26 Order name: Lipid Profile EDTN 02/07 19:26 Order name: Hemoglobin A1c EDTN 02/07 19:27 Order name: Lipase EDTN 02/07 13:52 Order name: CT Abd/Pelvis - IV Contrast Only; Complete Time: 17:48 kb 02/07 17:49 Interpretation: Report reviewed. 02/07 13:54 Order name: US Scrotum Testicles; Complete Time: 16:17 kb 02/07 16:18 Interpretation: Report reviewed. 02/07 13:52 Order name: IV Saline Lock; Complete Time: 14:20 kb 02/07 13:52 Order name: Labs collected and sent; Complete Time: 14:20 kb 02/07 14:51 Order name: Labs - recollect needed: GREEN TOP HEMOLYZED AND LIPEMIC, PLEASE RECOLLECT; sp Complete Time: 15:02 02/07 15:42 Order name: Misc. Order: recollect chemistry; Complete Time: 15:55 sp 02/07 17:51 Order name: Accucheck Blood Glucose; Complete Time: 18:16 cp Administered Medications: 13:54 CANCELLED (Physician Discretion): morphineor iv 4 mg IVP once over 4 mins kb 14:21 Drug: Famotidine IVP 20 mg IVP once; dilute with 10 mL 0.9% NaCl; give over 2 minutes ko1 Route: IVP; Site: left antecubital; 14:36 Follow up: Response: No adverse reaction ko1 14:21 Drug: Ondansetron IVP 4 mg IVP once; over 2 minutes Route: IVP; Site: left antecubital; ko1 14:36 Follow up: Response: No adverse reaction ko1 14:21 Drug: NS 0.9% IV 1000 ml IV at 1 bolus Per protocol; to be given as a bolus over 60 ko1 minutes Route: IV; Rate: 1 bolus; Site: left antecubital; 15:45 Follow up: Response: No adverse reaction; IV Status: Completed infusion; IV Intake: ko1 1000ml 14:21 Drug: HYDROmorphone IVP 1 mg IVP once Route: IVP; Site: left antecubital; ko1 14:36 Follow up: Response: No adverse reaction; Pain is decreased ko1 17:28 Drug: NS 0.9% IV 1000 ml IV at 1000 ml once; to be given as a bolus over 60 minutes ko1 Route: IV; Rate: 1000 ml; Site: left antecubital; 17:28 Drug: Diazepam IVP 5 mg IVP once Route: IVP; Site: left antecubital; ko1 17:44 Follow up: Response: No adverse reaction; Pain is decreased; Anxiety decreased ko1 17:28 Drug: HYDROmorphone IVP 0.5 mg IVP once Route: IVP; Site: left antecubital; ko1 17:44 Follow up: Response: No adverse reaction; Pain is decreased ko1 18:27 Not Given (BG 251): insulin regular human10 units IVP once; give if blood glucose ko1 greater than 300 Disposition Summary: 02/08/24 18:24 Hospitalization Ordered Notes: Hospitalization Status: Inpatient Admission cp Provider: Arpan Mckeon cp Condition: Stable cp Problem: new cp Symptoms: have improved cp Bed/Room Type: Standard cp Location: Telemetry/MedSurg (Inpatient)(02/08/24 19:48) cp Room Assignment: 222(02/08/24 19:50) vk Diagnosis - Diabetes mellitus due to underlying condition with ketoacidosis cp - Other acute pancreatitis without necrosis or infection cp Forms: - Medication Reconciliation Form cp - SBAR form cp - Leadership Thank You Letter cp Addendum: 03/04/2024 12:54 Co-signature as Attending Physician, Bret Lopez MD I agree with the assessment and c hathaway plan of care. Signatures: Dispatcher [employer] Sarah Felipe, LOLI-Caroline MELTONP-Bret Sawyer MD MD cha Pinkerton, Shawna sp Blanchard, Shelby, RN RN ss Bret Dudley PA PA cp Lynn Multani RN RN ko1 Christie Yusuf Corrections: (The following items were deleted from the chart) 02/07 13:53 13:53 CBC+H.LAB.BRZ ordered. EDMS EDMS 13:53 13:53 COMPREHENSIVE METABOLIC PANEL+C.LAB.BRZ ordered. EDMS EDMS 13:53 13:53 LIPASE+C.LAB.BRZ ordered. EDMS EDMS 13:53 13:53 Urinalysis+U.LAB.BRZ ordered. EDMS EDMS 13:53 13:53 Abdomen Pelvis W Con+CT.RAD.BRZ ordered. EDMS EDMS 13:54 13:52 morphine IVP or IV 4 mg IVP once over 4 mins ordered. kb kb 13:56 13:51 Pt is a 49 year old male who presents for upper abd pain and nausea that started kb today. Reports pain is similar to previous episodes of pancreatitis. . kb 13:56 13:51 Head/Face: Normocephalic, atraumatic. ENT: Moist Mucous membranes Cardiovascular: kb Regular rate Respiratory: Respirations even and unlabored. No increased work of breathing. Talking in full sentences Skin: Warm, dry with normal turgor. Normal color. MS/ Extremity: Pulses equal, no cyanosis. Neurovascular intact. Full, normal range of motion. Neuro: Awake and alert, GCS 15, oriented to person, place, time, and situation. kb 19:48 18:24 Intensive Care Unit cp cp 19:48 18:24 cp cp 19:50 19:48 cp vk
[2024-02-08] MEDS ORDERED: GLUCAGON 1 MG/VIAL IM PRN (19:24)
[2024-02-08] MEDS ORDERED: D10W 125 ML IV PRN (19:24)
[2024-02-08] MEDS ORDERED: SODIUM CHLORIDE 0.9% 10ML INJ IV PRN (19:26)
--- NOTE | 2024-02-08 19:37 | P.HP ---
Certification for Inpatient With expected LOS: <2 Midnights <Lori Zhou - Last Filed: 02/09/24 00:18> Patient History Date of Service: 02/09/24 Reason for admission: acute on chronic pancreatitis History of Present Illness: 49-year-old Korean-speaking man with a past medical history significant for chronic pancreatitis, DM insulin-dependent (30 units daily), fatty liver disease, HDL, and GERD presented to the emergency department complaining of abdominal pain x 2 days. Language line interpretation services was utilized for Korean interpretation. Language ID [id number]. The patient is alert, and oriented x 3. He states he began having abdominal pain that has become progressively worsened today. Patient describes his abdominal pain is located in the left upper abdominal quadrant, with radiation to the low back, and of a stabbing quality. The patient states his abdominal pain is relieved by leaning forward. Also, the patient states he has a history of pancreatitis, and this episode of abdominal pain is similar to what he has experienced in the past. The patient feels nauseous, but denies any episodes of emesis. He is a former smoker, who quit 2 years ago. He denies fever, cough, dyspnea, and urinary symptoms. 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 lives with his - Family History Sister -: Diabetes, Cancer Mother -: Diabetes Brother -: GI disease, Diabetes Notes: Pancreatitis - Social History Smoking Status: Former smoker (quit 2 years ago) Alcohol use: No CD- Drugs: No Caffeine use: No <Lori Zhou - Last Filed: 02/09/24 00:18> Date of Service: 02/08/24 <Arpan Mckeon - Last Filed: 02/09/24 05:16> Allergies No Known Allergies Allergy (Verified 10/15/21 03:43) Home Medications: Metoclopramide HCl [Reglan] 10 mg PO TIDWM PRN 03/20/22 Fenofibrate [Tricor*] 160 mg PO DAILY #30 tab 03/21/22 Insulin Aspart [Novolog Flexpen] 20 units SQ BID #15 ml 03/21/22 Insulin Degludec [Tresiba Flextouch U-200] 30 units SQ DAILY #15 ml 03/21/22 Metformin HCl 1,000 mg PO BID #60 tab 03/21/22 Pantoprazole [Protonix Tab*] 40 mg PO DAILY #30 tab 03/21/22 gemfibroziL [Gemfibrozil] 600 mg PO BID #60 tab 03/21/22 Hydrocodone 10/APAP 325 [Deerton 10/325] 1 tab PO Q6H PRN #30 tab 06/13/22 [place]-3 Fatty Acids/Fish Oil [Fish Oil 1,000 mg Softgel] 2 each PO BID #120 tab 06/13/22 Review of Systems Gastrointestinal: Nausea, Abdominal Pain (left upper quadrant), No Distention <Zhou,Lori Q - Last Filed: 02/09/24 00:18> Physical Examination - Vital Signs Temperature: 98.1 F Blood Pressure: 159/84 Pulse: 88 Respirations: 18 Pulse Ox (%): 100 (room air) - Physical Exam General: Alert, Oriented x3, Mild distress HEENT: Atraumatic, Normocephalic Neck: JVD not distended Respiratory: Clear to auscultation bilaterally Cardiovascular: No edema, Regular rate/rhythm, No gallops, No rubs, No murmurs Gastrointestinal: Normal bowel sounds, Non-distended, Tenderness (left upper abd quadrant with radiation to back), Guarding (left upper quadrant) Musculoskeletal: No swelling, No erythema, No tenderness, No warmth Neurological: Normal strength at 5/5 x4 extr, Sensation intact - Studies Laboratory Data (last 24 hrs) 02/08/24 02/08/24 15:50 14:15 WBC 10.60 Hgb 15.7 Hct 42.9 Plt Count 221 Sodium 139 Potassium 5.0 BUN 18 Creatinine 0.86 Glucose 337 H Total Bilirubin 0.9 AST 58 H ALT 32 Alkaline Phosphatase 85 Lipase 1621 H <Zhou,Lori Q - Last Filed: 02/09/24 00:18> - Studies Laboratory Data (last 24 hrs) 02/08/24 02/08/24 15:50 14:15 WBC 10.60 Hgb 15.7 Hct 42.9 Plt Count 221 Sodium 139 Potassium 5.0 BUN 18 Creatinine 0.86 Glucose 337 H Total Bilirubin 0.9 AST 58 H ALT 32 Alkaline Phosphatase 85 Lipase 1621 H <Arpan Mckeon - Last Filed: 02/09/24 05:16> Assessment and Plan - Problems (Diagnosis) (1) Acute on chronic pancreatitis Current Visit: Yes Status: Acute (2) Diabetes mellitus Current Visit: No Status: Chronic Qualifiers: Diabetes mellitus type: type 2 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 Diabetes mellitus complication status: with hyperglycemia Qualified Code(s): E11.65 - Type 2 diabetes mellitus with hyperglycemia; 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 (3) Fatty liver Current Visit: No Status: Chronic (4) GERD (gastroesophageal reflux disease) Current Visit: No Status: Chronic Qualifiers: Esophagitis presence: without esophagitis Qualified Code(s): K21.9 - Gastro-esophageal reflux disease without esophagitis (5) Hypertriglyceridemia Current Visit: No Status: Chronic - Plan Acute on chronic pancreatitis: Admit to ICU- elevated triglycerides NPO diet Continue with D5-NS Insulin drip at rate of 4 ordered nursing order placed to "please titrate insulin drip to keep blood glucose between 100-200" Morphine ordered for pain Protonix ordered Zofran ordered Will repeat lipase CT A/P revealed mild acute on chronic pancreatitis Diabetes: On insulin sliding scale Hemoglobin A1c ordered BMP in 4 hours ordered GERD: Protonix ordered HDL: triglyceride level >3940 - Advance Directives Does patient have a Living Will: No Does patient have a Durable POA for Healthcare: No <Lori Zhou - Last Filed: 02/09/24 00:18> Date of Service: 02/08/24 Patient was seen and examined. Events of the last 24 hours have been noted. Spoke with with JACKELINE regarding patient's clinical picture after evaluating and examining the patient independently. I performed a substantial part of the MDM during this patient's care today. I personally made or approved the documented management plan and acknowledge its risk of complications. I agree with the findings and documentation provided in the JACKELINE's notes. Patient with acute pancreatitis secondary to hypertriglyceridemia and alcohol abuse. Patient had a couple of drinks of alcohol over the holidays. Patient also has never been compliant with his medication for hypertriglyceridemia. Presents with acute pancreatitis with significantly elevated triglycerides. Patient will be treated with IV fluids and an insulin drip. Check triglycerides in AM. Monitor lipase level. May start ice chips if pain is improved. <Arpan Mckeon - Last Filed: 02/09/24 05:16>
[2024-02-08] MEDS: NA CHLORIDE 0.9% 1,000 ML IV SCH ×2 (20:00→22:09)
[2024-02-08] MEDS ORDERED: MORPHINE 2 MG/ML SYR ONE (21:10)
[2024-02-08] MEDS: MORPHINE 2 MG/ML SYR IV PRN (21:13)
[2024-02-08] MEDS: PANTOPRAZOLE 40 MG INJ IVP SCH (22:09)
[2024-02-08] MEDS: HYDROMORPHONE HCL 1 MG/ML INJ IV ONE (22:40)
[2024-02-08] MEDS: INSULIN REGULAR (HUMAN) 100 UNIT/ML SQ SCH (22:40)
[2024-02-09] LABS: HDL Cholesterol 40 mg/dL (40-60)
[2024-02-09 00:11] LABS: LDL, Direct 96 mg/dL (100-129)
[2024-02-09] MEDS ORDERED: D50W 25 GM/50 ML SYRINGE IV PRN ×2 (00:16→01:20)
[2024-02-09] MEDS ORDERED: GLUCAGON 1 MG/VIAL IM PRN ×2 (00:16→01:20)
[2024-02-09 00:20] LABS: Anion Gap 20.4 mEq/L (5.0-15.0)
[2024-02-09 00:21] LABS: Potassium 5.4 mEq/L (3.5-5.1)
[2024-02-09] MEDS ORDERED: D10W 125 ML IV PRN (00:22)
[2024-02-09] MEDS: INSULIN REGULAR (HUMAN) 100 UNIT/ML ONE (00:36)
[2024-02-09] MEDS: NA CHLORIDE 0.9% 100 ML ONE (00:37)
[2024-02-09] MEDS: SODIUM BICARB 50 MEQ/50ML VIAL ONE (00:40)
[2024-02-09] MEDS ORDERED: INSULIN REGULAR, HUMAN 100 UNIT in NA CHLORIDE 0.9% 100 ML IV SCH (01:00)
[2024-02-09] MEDS: D5 0.9 NS 1,000 ML IV SCH ×2 (01:15→08:12)
[2024-02-09] MEDS: INSULIN REGULAR, HUMAN 100 UNIT in NA CHLORIDE 0.9% 100 ML IV SCH (01:25)
[2024-02-09] MEDS: HYDROMORPHONE HCL 0.5 MG/0.5 ML INJ IV PRN (01:28)
[2024-02-09 05:16] LABS: Anion Gap 15.6 mEq/L (5.0-15.0)
[2024-02-09 05:23] LABS: Potassium 4.6 mEq/L (3.5-5.1)
[2024-02-09] MEDS: ENOXAPARIN 40 MG/0.4 ML SQ SCH (08:07)
[2024-02-09] MEDS: HYDROMORPHONE HCL 1 MG/ML INJ IV PRN (08:34)
--- NOTE | 2024-02-09 10:40 | P.PN ---
Subjective Date of Service: 02/09/24 Chief Complaint: acute on chronic pancreatitis Subjective: No new changes (Patient is complaining of persistent left upper quadrant pain, but no vomiting or diarrhea, patient on n.p.o.) Review of Systems Other: Consitutional; fever(-), chills (-), rigor(-), night sweat(-), unintentional weight loss(-) HEENT; epistaxis (-), otorrhea (-), otalgia (-) Respiratory; shortness of breath (-), wheezing (-), cough (-), sputum (-), pleuritic chest pain (-) Cardiovascular; chest pain (-), peripheral edema (-), paroxysmal nocturnal dyspnea (-), orthopnea (-) Gastrointestinal; nausea (+), vomiting (-), abdominal pain (+), diarrhea (-), constipation (-), melena (-), hematochezia (-) Urinary; urinary frequency (-), dysuria (-), urgency (-), flank pain (-), gross hematuria (-) Skin; rash (-), 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 General: Not acutely ill looking, in no apparent distress,. HEENT: Normocephalic, atraumatic,. Neck: Supple, without JVD or goiter or thyroid mass. Respiratory: Normal breathing effort, clear to auscultation bilaterally, no crackles no wheezing or rhonchi. Cardiovascular: Regular rate and rhythm, S1, S2 normal, no murmur no gallop. Ga strointestinal: Normal bowel sounds, distended, tender, No ascites, , No masses, no hepatosplenomegaly. Musculoskeletal: No clubbing, No peripheral edema. Integumentary: No rashes. Lymphatics: No axilla or cervical lymphadenopathy. Neurology; alert awake oriented x3, no focal neurologic deficit - Studies Laboratory Data (last 24 hrs) 02/08/24 02/08/24 15:50 14:15 WBC 10.60 Hgb 15.7 Hct 42.9 Plt Count 221 Sodium 139 Potassium 5.0 BUN 18 Creatinine 0.86 Glucose 337 H Total Bilirubin 0.9 AST 58 H ALT 32 Alkaline Phosphatase 85 Lipase 1621 H Assessment And Plan - Plan 49-year-old Sami-speaking man with a past medical history significant for chronic pancreatitis, DM insulin-dependent (30 units daily), fatty liver disease, HDL on omega-3, fenofibrate, gemfibrozil, and GERD presented to the emergency department complaining of abdominal pain and nausea x 2 days. #1 hyperTG acute pancreatitis on chronic pancreatitis Initial TG 3900, lipase elevated over 1600, CT of the abdomen and pelvis personally reviewed no pancreatic necrosis but edematous pancreatic head with macroscopic calcification status postcholecystectomy, continue n.p.o. pain control with Dilaudid 1 mg as needed, serial TG, continuous insulin infusion un til TG less than 500 #2 mild DKA due to uncontrolled type 2 diabetes Initial bicarb 15, anion gap 15, random blood sugar over 250, will increase insulin to 11 units/h, on DKA protocol, hemoglobin A1c on admission 11.2 DVT prophylaxis enoxaparin subcu, GI prophylaxis pantoprazole IV
[2024-02-09 13:43] LABS: Anion Gap 12.6 mEq/L (5.0-15.0)
[2024-02-09 13:46] LABS: Potassium 3.6 mEq/L (3.5-5.1)
[2024-02-09] MEDS: KCL 20 MEQ/100 mL IVPB 20 MEQ/100 ML BAG IV SCH (15:11)
[2024-02-09] MEDS: ONDANSETRON 4 MG/2 ML VIAL IV PRN (15:18)
[2024-02-09] MEDS: METOPROLOL TAR 25 MG TAB PO SCH (18:00)
[2024-02-09] MEDS: HYDROMORPHONE HCL 2 MG/ML inj IV PRN (18:42)
[2024-02-09 20:06] LABS: Anion Gap 11.6 mEq/L (5.0-15.0)
[2024-02-09 20:07] LABS: Potassium 3.6 mEq/L (3.5-5.1)
[2024-02-10 02:01] LABS: Anion Gap 10.6 mEq/L (5.0-15.0); Potassium 3.6 mEq/L (3.5-5.1)
[2024-02-10] MEDS: D5W 1,000 ML with POTASSIUM CL 20 MEQ IV SCH (08:18)
[2024-02-10 09:45] LABS: Albumin 2.7 g/dL (3.4-5.0); Albumin/Globulin Ratio 0.7 (1.1-1.8); Bilirubin Direct 3.8 mg/dL (0-0.2); Bilirubin Indirect, Calculated 1.6 mg/dL (0.2-0.8); Bilirubin Total 5.4 mg/dL (0.2-1.0); Globulin 4.1 g/dL (2.3-3.5); Protein, Total 6.8 g/dL (6.4-8.2)
--- NOTE | 2024-02-10 12:56 | P.PN ---
Subjective Date of Service: 02/10/24 Chief Complaint: acute on chronic pancreatitis Subjective: Improving The patient stated his abdominal pain starting to improve. Wants to drink water, denied any nausea and vomiting, use of alcohol. Review of Systems Other: Consitutional; fever(-), chills (-), rigor(-), night sweat(-), unintentional weight loss(-) HEENT; diplopia (-), rhinorrhea (-), epistaxis (-), otorrhea (-), otalgia (-) Respiratory; shortness of breath (-), wheezing (-), cough (-), sputum (-), pleuritic chest pain (-) Cardiovascular; chest pain (-), peripheral edema (-), paroxysmal nocturnal dyspnea (-), orthopnea (-) Gastrointestinal; nausea (-), vomiting (-), abdominal pain (+), diarrhea (-), constipation (-), melena (-), hematochezia (-) Urinary; urinary frequency (-), dysuria (-), urgency (-), flank pain (-), gross hematuria (-), incontinence (-) Skin; rash (-), 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 General: Not acutely ill looking, in no apparent distress,. HEENT: Normocephalic, atraumatic, mild icteric sclera, nonanemic conjunctivae. Neck: Supple, without JVD or goiter or thyroid mass. Respiratory: Normal breathing effort, clear to auscultation bilaterally, no crackles no wheezing or rhonchi. Cardiovascular: Regular rate and rhythm, S1, S2 normal, no murmur no gallop. Gastrointestinal: Normal bowel sounds, none distended, less tender, No ascites, , No masses, no hepatosplenomegaly. Musculoskeletal: No clubbing, No peripheral edema. Integumentary: No rashes. Lymphatics: No axilla or cervical lymphadenopathy. Neurology; alert awake oriented x3, no focal neurologic deficit Assessment And Plan - Plan 49-year-old [place] Islander-speaking man with a past medical history significant for chronic pancreatitis, DM insulin-dependent (30 units daily), fatty liver disease, HDL on omega-3, fenofibrate, gemfibrozil, and GERD presented to the emergency department complaining of abdominal pain and nausea x 2 days. #1 recurrent hyperTG acute pancreatitis on chronic pancreatitis Slowly improving, repeated TG down to 1356 Initial TG 3900, lipase elevated over 1600, CT of the abdomen and pelvis no pancreatic necrosis but edematous pancreatic head with macroscopic calcification status postcholecystectomy, Start sips of water with oral medication,. pain control with Dilaudid 1.5 mg as needed, serial TG, continuous insulin infusion until TG less than 500 #2 mild DKA related #3 Resolved Initial bicarb 15, anion gap 21, positive serum beta hydroxybutyric acid, random blood sugar over 250, #3 uncontrolled type 2 diabetes Insulin infusion down to 6 units/h, on DKA protocol, target blood sugar 1 50-250 hemoglobin A1c on admission 11.2 #4 nonspecific liver function abnormality Mild elevated transaminases with total bilirubin 5, likely related to medication and #1, no biliary obstruction on the CT scan at admission, will monitor liver function test DVT prophylaxis enoxaparin subcu, GI prophylaxis pantoprazole IV
--- NOTE | 2024-02-10 18:43 | RAD REPORT ---
EXAMINATION: Ultrasound of the liver CLINICAL HISTORY: Acute hepatitis COMPARISON: None. FINDINGS: Liver: Visualized portions of the liver demonstrate diffuse parenchymal echogenicity suggesting steat osis. Gallbladder: Surgically absent. Bile ducts: Common bile duct appears dilated measuring up to 11 mm. Fluid: Trace free fluid. Spleen: Mildly prominent measuring 15 cm. IMPRESSION: Common bile duct is dilated to 11 mm. MRCP recommended for further evaluation. Prominent fatty liver.
[2024-02-11 05:49] LABS: Absolute Eosinophils 0.1 K/uL (0-0.5); Absolute Lymphocytes (CBC) 1.1 K/uL (0.7-4.9); Absolute Monocytes 0.4 K/uL (0.1-1.3); Absolute Neutrophil 6.7 K/uL (1.8-8.0); Basophils % 0.2 % (0-1.3); Eosinophils % 1.4 % (0-4.4); Hematocrit 32.3 % (39.6-49.0); Hemoglobin 10.8 g/dL (13.6-17.9); Lymphocytes % 13.1 % (15.3-44.8); MCH 28.2 pg (27.0-35.0); MCHC 33.5 g/dL (32.0-36.0); MCV 84.2 fL (80-100); MPV 10.2 fL (7.6-11.3); Monocytes % 4.7 % (3.3-12.3); Neutrophils % 80.6 % (41.7-73.7); Nucleated Red Blood Cells % 0.2 % (0-0); Platelets 121 thou/uL (152-406); RBC Red Blood Cell Count 3.84 M/uL (4.33-5.43)
[2024-02-11 06:13] LABS: Albumin 2.1 g/dL (3.4-5.0); Albumin/Globulin Ratio 0.6 (1.1-1.8); Anion Gap 8.9 mEq/L (5.0-15.0); Bilirubin Total 1.7 mg/dL (0.2-1.0); Globulin 3.8 g/dL (2.3-3.5); Potassium 2.9 mEq/L (3.5-5.1); Protein, Total 5.9 g/dL (6.4-8.2)
[2024-02-11 06:15] LABS: Phosphorus 1.2 mg/dL (2.5-4.9)
[2024-02-11] MEDS: METFORMIN HCL 500 MG TAB PO SCH (08:05)
[2024-02-11] MEDS: KCL 20 MEQ/100 mL IVPB 20 MEQ/100 ML BAG IV SCH (08:06)
[2024-02-11] MEDS: POTASSIUM PHOS IN 0.9 % NACL 15 MMOL/250 ML BAG IV ONE (08:06)
[2024-02-11] MEDS: DOCOSAHEXANOIC AC/EPA 1000 MG PO SCH (08:40)
[2024-02-11] MEDS: gemfibroziL 600 MG TAB PO SCH (08:40)
[2024-02-11] MEDS ORDERED: HOME MED 1 EA UNK (Metformin Hcl [Metformin Hcl] 1,000 MG Tablet) PO SCH (09:00)
--- NOTE | 2024-02-11 11:11 | P.PN ---
Subjective Date of Service: 02/11/24 Chief Complaint: acute on chronic pancreatitis Subjective: Improving Patient looks a lot more comfortable, he is tolerating sips of water and oral medication okay, he is complaining of abdominal pain but he says it is getting better, he received 4 doses Dilaudid as needed over the past 24 hours. Review of Systems Other: Consitutional; fever(-), chills (-), rigor(-), night sweat(-), unintentional weight loss(-) HEENT; diplopia (-), rhinorrhea (-), epistaxis (-), otorrhea (-), otalgia (-) Respiratory; shortness of breath (-), wheezing (-), cough (-), sputum (-), pleuritic chest pain (-) Cardiovascular; chest pain (-), peripheral edema (-), paroxysmal nocturnal dyspnea (-), orthopnea (-) Gastrointestinal; nausea (-), vomiting (-), abdominal pain (+), diarrhea (-), constipation (-), melena (-), hematochezia (-) Urinary; urinary frequency (-), dysuria (-), urgency (-), flank pain (-), gross hematuria (-), incontinence (-) Skin; rash (-), 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 General: Not acutely ill looking, in no apparent distress,. HEENT: Normocephalic, atraumatic, mild icteric sclera, nonanemic conjunctivae. Neck: Supple, without JVD or goiter or thyroid mass. Respiratory: Normal breathing effort, clear to auscultation bilaterally, no crackles no wheezing or rhonchi. Cardiovascular: Regular rate and rhythm, S1, S2 normal, no murmur no gallop. Gastrointestinal: Normal bowel sounds, none distended, mildly tender, no significant change, No ascites, , No masses, no hepatosplenomegaly. Musculoskeletal: No clubbing, No peripheral edema. Integumentary: No rashes. Lymphatics: No axilla or cervical lymphadenopathy. Neurology; alert awake oriented x3, no focal neurologic deficit Assessment And Plan - Plan 49-year-old Greenlandic-speaking man with a past medical history significant for chronic pancreatitis, DM insulin-dependent (30 units daily), fatty liver disease, HDL on omega-3, fenofibrate, gemfibrozil, and GERD presented to the emergency department complaining of abdominal pain and nausea x 2 days. #1 recurrent hyperTG acute pancreatitis on chronic pancreatitis Slowly improving, repeated TG down to 473 Initial TG 3900, lipase elevated over 1600, CT of the abdomen and pelvis no pancreatic necrosis but edematous pancreatic head with macroscopic calcification status postcholecystectomy, Start sips of water with oral medication,. Will resume atorvastatin, gemfibrozil and omega-3, continue pain control with Dilaudid 1.5 mg as needed, serial TG, continuous insulin infusion until TG less than 500, will change insulin infusion to subcu insulin and start oral diet if repeat TG less than 500 today #2 mild DKA related #3 Resolved Initial bicarb 15, anion gap 21, positive serum beta hydroxybutyric acid, random blood sugar over 250, #3 uncontrolled type 2 diabetes Insulin infusion down to 1.5 units/h, on DKA protocol, target blood sugar 1 50- 250 hemoglobin A1c on admission 11.2 #4 nonspecific liver function abnormality secondary to nonalcoholic fatty liver related to #3 Liver function test and total bilirubin rapidly improving, liver ultrasound showed mildly dilated CBD 11 mm, which can be attributed to postcholecystectomy state and edematous pancreatitis or pancreatic head at this time, I do not believe patient benefit from MRCP. DVT prophylaxis enoxaparin subcu, GI prophylaxis pantoprazole IV
[2024-02-11] MEDS ORDERED: GLUCAGON 1 MG/VIAL IM PRN (12:45)
[2024-02-11] MEDS ORDERED: D10W 125 ML IV PRN (12:45)
[2024-02-11] MEDS: INSULIN GLARGINE 100 UNIT/ML SQ SCH (12:53)
[2024-02-11] MEDS: INSULIN REGULAR (HUMAN) 100 UNIT/ML SQ SCH ×2 (16:20→16:21)
[2024-02-11] MEDS: ATORVASTATIN 40 MG TAB PO SCH (21:03)
[2024-02-11 22:10] VITALS: BMI 27.9
[2024-02-12 05:41] LABS: Albumin 2.2 g/dL (3.4-5.0); Albumin/Globulin Ratio 0.5 (1.1-1.8); Anion Gap 10.4 mEq/L (5.0-15.0); Bilirubin Total 1.6 mg/dL (0.2-1.0); Globulin 4.2 g/dL (2.3-3.5); Magnesium 1.9 mg/dL (1.6-2.4); Phosphorus 2.1 mg/dL (2.5-4.9); Potassium 3.4 mEq/L (3.5-5.1); Protein, Total 6.4 g/dL (6.4-8.2)
[2024-02-12] MEDS: POTASSIUM 25 MEQ EFFERV TAB PO ONE (06:16)
[2024-02-12] MEDS: POTASS/SODIUM PHOSPHATE 1 PKT POWD.PACK PO SCH (06:32)
[2024-02-12] MEDS: NA CHLORIDE 0.9% 250 ML ONE (06:35)
[2024-02-12] MEDS: KCL 20 MEQ/100 mL IVPB 20 MEQ/100 ML BAG IV SCH (06:42)
--- NOTE | 2024-02-12 15:53 | P.PN ---
Subjective Date of Service: 02/12/24 Chief Complaint: acute on chronic pancreatitis Subjective: Improving Insulin infusion stopped and subcu insulin started yesterday afternoon, patient tolerating oral diet well with minimal abdominal pain but patient is requiring Dilaudid 4 times over the 24-hour for lower extremity pain and back pain. Review of Systems Other: Consitutional; fever(-), chills (-), rigor(-), night sweat(-), unintentional weight loss(-) HEENT; diplopia (-), rhinorrhea (-), epistaxis (-), otorrhea (-), otalgia (-) Respiratory; shortness of breath (-), wheezing (-), cough (-), sputum (-), pleuritic chest pain (-) Cardiovascular; chest pain (-), peripheral edema (-), paroxysmal nocturnal dyspnea (-), orthopnea (-) Gastrointestinal; nausea (-), vomiting (-), abdominal pain (+), diarrhea (-), constipation (-), melena (-), hematochezia (-) Urinary; urinary frequency (-), dysuria (-), urgency (-), flank pain (-), gross hematuria (-), incontinence (-) Skin; rash (-), 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 General: Not acutely ill looking, in no apparent distress,. HEENT: Normocephalic, atraumatic, mild icteric sclera, nonanemic conjunctivae. Neck: Supple, without JVD or goiter or thyroid mass. Respiratory: Normal breathing effort, clear to auscultation bilaterally, no crackles no wheezing or rhonchi. Cardiovascular: Regular rate and rhythm, S1, S2 normal, no murmur no gallop. Gastrointestinal: Normal bowel sounds, none distended, mildly tender, no significant change, No ascites, , No masses, no hepatosplenomegaly. Musculoskeletal: No clubbing, No peripheral edema. Integumentary: No rashes. Lymphatics: No axilla or cervical lymphadenopathy. Neurology; alert awake oriented x3, no focal neurologic deficit Assessment And Plan - Plan 49-year-old Kuwaiti-speaking man with a past medical history significant for chronic pancreatitis, DM insulin-dependent (30 units daily), fatty liver disease, HDL on omega-3, fenofibrate, gemfibrozil, and GERD presented to the emergency department complaining of abdominal pain and nausea x 2 days. #1 recurrent hyperTG acute pancreatitis on chronic pancreatitis Slowly improving, repeated TG down to 322 after 3 days of insulin infusion, which was switched to subcu insulin on February 10 Initial TG 3900, lipase elevated over 1600, CT of the abdomen and pelvis no pancreatic necrosis but edematous pancreatic head with macroscopic calcification status postcholecystectomy, Tolerating oral diet well with a mild abdominal pain Will continue atorvastatin, gemfibrozil and omega-3, will titrate down Dilaudid 1.0 mg as needed, I warned the patient of addictive risk of opioid medication. Check triglyceride daily #2 mild DKA related #3 Resolved Initial bicarb 15, anion gap 21, positive serum beta hydroxybutyric acid, random blood sugar over 250, #3 uncontrolled type 2 diabetes hemoglobin A1c on admission 11.2 Good glycemic control with 30 units Lantus, 5 unit prandial insulin x 3 and moderate corrective insulin with metformin 1 g twice daily, will continue current regimen #4 nonspecific liver function abnormality secondary to nonalcoholic fatty liver related to #3 Liver function test and total bilirubin rapidly improving, liver ultrasound showed mildly dilated CBD 11 mm, which can be attributed to postcholecystectomy state and edematous pancreatitis or pancreatic head at this time, I do not believe patient benefit from MRCP. DVT prophylaxis enoxaparin subcu, I will discontinue IV pantoprazole, downgrade patient to general medical floor today.
[2024-02-12] MEDS: HYDROMORPHONE HCL 1 MG/ML INJ IV PRN (19:46)
[2024-02-12] MEDS: KETOROLAC 30 MG/ML INJ IV ONE (22:41)
[2024-02-13 06:29] LABS: Anion Gap 9.6 mEq/L (5.0-15.0); Phosphorus 3.3 mg/dL (2.5-4.9); Potassium 3.6 mEq/L (3.5-5.1)
[2024-02-13] MEDS: POTASSIUM CL SA 10 MEQ TAB PO ONE (08:32)
[2024-02-13] MEDS: DOCOSAHEXANOIC AC/EPA 1000 MG PO SCH (08:33)
[2024-02-13] MEDS: KETOROLAC 30 MG/ML INJ IV PRN (10:26)
--- NOTE | 2024-02-13 13:55 | P.PN ---
Subjective Date of Service: 02/13/24 Chief Complaint: acute on chronic pancreatitis Subjective: Improving Patient states that he is feeling better but still have abdominal pain in the left upper quadrant, 4-8/10, cramping, after eating, no nausea and vomiting, tolerating oral diet well, participating with physical therapy. Review of Systems Other: Consitutional; fever(-), chills (-), rigor(-), night sweat(-), unintentional weight loss(-) HEENT; diplopia (-), rhinorrhea (-), epistaxis (-), otorrhea (-), otalgia (-) Respiratory; shortness of breath (-), wheezing (-), cough (-), sputum (-), pleuritic chest pain (-) Cardiovascular; chest pain (-), peripheral edema (-), paroxysmal nocturnal dyspnea (-), orthopnea (-) Gastrointestinal; nausea (-), vomiting (-), abdominal pain (+), diarrhea (-), constipation (-), melena (-), hematochezia (-) Urinary; urinary frequency (-), dysuria (-), urgency (-), flank pain (-), gross hematuria (-), incontinence (-) Skin; 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 General: Not acutely ill looking, in no apparent distress,. HEENT: Normocephalic, atraumatic, mild icteric sclera, nonanemic conjunctivae. Neck: Supple, without JVD or goiter or thyroid mass. Respiratory: Normal breathing effort, clear to auscultation bilaterally, no crackles no wheezing or rhonchi. Cardiovascular: Regular rate and rhythm, S1, S2 normal, no murmur no gallop. Gastrointestinal: Normal bowel sounds, none distended, mild tenderness in the left upper quadrant, no significant change, No ascites, , No masses, no hepatosplenomegaly. Musculoskeletal: No clubbing, No peripheral edema. Integumentary: No rashes. Lymphatics: No axilla or cervical lymphadenopathy. Neurology; alert awake oriented x3, no focal neurologic deficit Assessment And Plan - Plan 49-year-old Emirati-speaking man with a past medical history significant for chronic pancreatitis, DM insulin-dependent (30 units daily), fatty liver disease, HDL on omega-3, fenofibrate, gemfibrozil, and GERD presented to the emergency department complaining of abdominal pain and nausea x 2 days. #1 recurrent hyperTG acute pancreatitis on chronic pancreatitis Slowly improving, latest TG is 277 repeated TG down to 322 after 3 days of insulin infusion, which was switched to subcu insulin on February 10 and transferred to medical floor. Initial TG 3900, lipase elevated over 1600, CT of the abdomen and pelvis no pancreatic necrosis but edematous pancreatic head with macroscopic calcification status postcholecystectomy, Tolerating oral diet well with a mild abdominal pain , I will add Toradol 30 mg as needed in addition to Dilaudid 1 mg as needed I warned the patient of addictive risk of opioid medication. #2 severe hypertriglyceridemia related to #4 I will continue 40 mg atorvastatin, 600 mg gemfibrozil twice daily, will increase omega-3 to 2 g twice daily I will order repeat EKG tomorrow #2 mild DKA related #3 Resolved Initial bicarb 15, anion gap 21, positive serum beta hydroxybutyric acid, random blood sugar over 250, #3 uncontrolled type 2 diabetes hemoglobin A1c on admission 11.2 Good glycemic control without hypoglycemic episode on 30 units Lantus, 5 unit prandial insulin x 3 and moderate corrective insulin with metformin 1 g twice daily, will continue current regimen #4 nonspecific liver function abnormality secondary to nonalcoholic fatty liver related to #3 Liver function test and total bilirubin rapidly improving, liver ultrasound showed mildly dilated CBD 11 mm, which can be attributed to postcholecystectomy state and edematous pancreatitis or pancreatic head at this time, I do not believe patient benefit from MRCP. DVT prophylaxis enoxaparin subcu, Disposition, anticipating discharge tomorrow
[2024-02-13] MEDS: ACETAMINOPHEN 325 MG TABLET PO PRN (20:43)
[2024-02-13] MEDS ORDERED: MORPHINE 2 MG/ML SYR IV PRN (22:02)
[2024-02-13] MEDS: HYDROMORPHONE HCL 1 MG/ML INJ IV ONE (23:40)
[2024-02-14] MEDS: MORPHINE 2 MG/ML SYR IV ONE (10:07)
--- NOTE | 2024-02-14 11:18 | RAD REPORT ---
EXAMINATION: CT ABDOMEN WITHOUT CONTRAST CLINICAL INDICATION: Male, 49 years old.Follow-up on high TC recurrent pancreatitis TECHNIQUE: CT abdomen was performed, without IV contrast, as per department protocol. Axial, sagittal and coronal reconstructions were obtained. One or more of the following dose reduction techniques were used: Automated exposure control, adjustment of the mA and/or kV according to the patient size, and/or iterative reconstruction. Unless otherwise specified, incidental findings do not require dedicated imaging follow-up. [id number]. IV CONTRAST: Not administered. COMPARISON: 02/08/2024 FINDINGS: The lack of intravenous contrast limits the sensitivity of this exam for evaluation of solid visceral organs, vascular structures, and retroperitoneum. LOWER CHEST: The visualized lung bases are clear. LIVER: Normal in size and contour. No focal lesion. Probable hepatic steatosis. GALLBLADDER/BILE DUCTS: Cholecystectomy with similar extrahepatic biliary duct dilatation? PANCREAS: Sequela of acute on chronic pancreatitis with increased inflammatory changes compared with 02/08/2024. The pancreas remains diffusely enlarged. There is increased fluid at the body and tail the pancreas extending into the small bowel mesentery and retroperitoneum. SPLEEN: Normal size. No focal lesion. ADRENALS: Normal; no mass. KIDNEYS AND URETERS: Normal size and contour. No hydronephrosis. GASTROINTESTINAL TRACT: Stomach is non-dilated. Small bowel has normal course and caliber. No colonic wall thickening or pericolonic inflammatory changes. PERITONEUM: No free fluid. ABDOMINAL AORTA AND OTHER VESSELS: Normal caliber aorta and IVC. MUSCULOSKELETAL: No acute or suspicious osseous abnormality. ADDITIONAL FINDINGS: None. IMPRESSION: Increasing inflammatory changes and fluid at the body and tail of the pancreas compared with 4. Within the limitations of a noncontrast CT, no well defined fluid collections identified. The pancreatic parenchyma is incompletely evaluated without contrast.
--- NOTE | 2024-02-14 11:46 | P.PN ---
Subjective Date of Service: 02/14/24 Chief Complaint: acute on chronic pancreatitis Subjective: No new changes Patient continued to complain of left upper quadrant pain requiring IV pain medication Dilaudid, Toradol however he is tolerating oral diet well no nausea and vomiting. Review of Systems Other: Consitutional; fever(-), chills (-), rigor(-), night sweat(-), unintentional weight loss(-) HEENT; diplopia (-), rhinorrhea (-), epistaxis (-), otorrhea (-), otalgia (-) Respiratory; shortness of breath (-), wheezing (-), cough (-), sputum (-), pleuritic chest pain (-) Cardiovascular; chest pain (-), peripheral edema (-), paroxysmal nocturnal dys pnea (-), orthopnea (-) Gastrointestinal; nausea (-), vomiting (-), abdominal pain (+), diarrhea (-), constipation (-), melena (-), hematochezia (-) Urinary; urinary frequency (-), dysuria (-), urgency (-), flank pain (-), gross hematuria (-), incontinence (-) Skin; 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 General: Not acutely ill looking, in moderate apparent distress complaining of abdominal pain. HEENT: Normocephalic, atraumatic, mild icteric sclera, nonanemic conjunctivae. Neck: Supple, without JVD or goiter or thyroid mass. Respiratory: Normal breathing effort, clear to auscultation bilaterally, no crackles no wheezing or rhonchi. Cardiovascular: Regular rate and rhythm, S1, S2 normal, no murmur no gallop. Gastrointestinal: Normal bowel sounds, none distended, mild tenderness in the left upper quadrant, no significant change, No ascites, , No masses, no hepatosplenomegaly. Musculoskeletal: No clubbing, No peripheral edema. Integumentary: No rashes. Lymphatics: No axilla or cervical lymphadenopathy. Neurology; alert awake oriented x3, no focal neurologic deficit - Studies Microbiology Data (last 24 hrs): 02/08/24 18:15 Blood - Blood Aerobic Blood Culture - Final No growth in 5 days. 02/08/24 18:15 Blood - Blood Anaerobic Blood Culture - Final No growth in 5 days. 02/08/24 18:00 Blood - Blood Aerobic Blood Culture - Final No growth in 5 days. 02/08/24 18:00 Blood - Blood Anaerobic Blood Culture - Final No growth in 5 days. Assessment And Plan - Plan 49-year-old English-speaking man with a past medical history significant for chronic pancreatitis, DM insulin-dependent (30 units daily), fatty liver disease, HDL on omega-3, fenofibrate, gemfibrozil, and GERD presented to the em ergency department complaining of abdominal pain and nausea x 2 days. #1 recurrent hyperTG acute pancreatitis on chronic pancreatitis Slowly improving except persistent left upper quadrant pain asking for IV pain medication , today TG is 285, lipase 80, close to normal Treated with 3 days of insulin infusion, switched to subcu insulin on February 10 and transferred to medical floor on February 11 Initial TG 3900, lipase elevated over 1600, CT of the abdomen and pelvis no pancreatic necrosis but edematous pancreatic head with macroscopic calcification status postcholecystectomy, Tolerating oral diet well but persistent left upper quadrant pain asking for IV pain medication, I ordered repeat CT scan of the abdomen, no sign of pancreatic necrosis or pancreatic ascites but increased edema in the peripancreatic fat stranding compared to initial CT which is expected, I will continue oral diet, pain control with Toradol and morphine 2 mg as needed, #2 severe hypertriglyceridemia related to #4 I will continue 40 mg atorvastatin, 600 mg gemfibrozil twice daily, will increase omega-3 to 2 g twice daily today's TG is 285 #2 mild DKA related #3 Resolved Initial bicarb 15, anion gap 21, positive serum beta hydroxybutyric acid, random blood sugar over 250, #3 uncontrolled type 2 diabetes hemoglobin A1c on admission 11.2 Good glycemic control without hypoglycemic episode on 30 units Lantus, 5 unit prandial insulin x 3 and moderate corrective insulin, I will hold metformin to day in case patient need repeat CT scan in the next few days , will continue current insulin regimen #4 nonspecific liver function abnormality secondary to nonalcoholic fatty liver related to #3 Liver function test normalized,, liver ultrasound showed mildly dilated CBD 11 mm, which can be attributed to postcholecystectomy state and edematous pancreatitis of pancreatic head at this time, I do not believe patient benefit from MRCP. DVT prophylaxis enoxaparin subcu, Disposition, plan to discharge home once his left upper quadrant pain is reasonably controlled on oral analgesics
[2024-02-15] MEDS: MORPHINE 2 MG/ML SYR IV PRN (03:28)
[2024-02-15 06:14] LABS: Absolute Monocytes 0.5 K/uL (0.1-1.3); Basophils % 0.2 % (0-1.3); Eosinophils % 1.1 % (0-4.4); Hemoglobin 10.7 g/dL (13.6-17.9); Lymphocytes % 21.5 % (15.3-44.8); MCH 27.8 pg (27.0-35.0); MCHC 33.5 g/dL (32.0-36.0); MCV 83.1 fL (80-100); MPV 8.8 fL (7.6-11.3); Monocytes % 10.8 % (3.3-12.3); Neutrophils % 66.4 % (41.7-73.7); Nucleated Red Blood Cells % 0.1 % (0-0); Platelets 217 thou/uL (152-406); RBC Red Blood Cell Count 3.86 M/uL (4.33-5.43); Red Cell Distribution Width 14.3 % (12.1-15.2)
[2024-02-15 07:07] LABS: Band Neutrophils 5 % (0-1); Blood Morphology Comment NOTED (NOT SEEN); Differential Total Cells Count 100; Eosinophils 1 % (0-3); Lymphocytes 24 % (15-42); Metamyelocytes 2 % (0-0); Monocytes 11 % (0-10); Platelet Estimate ADEQ; Rouleau NOTED; Segmented Neutrophils 56 % (40-80)
[2024-02-15 07:09] LABS: Albumin 2.4 g/dL (3.4-5.0); Albumin/Globulin Ratio 0.5 (1.1-1.8); Anion Gap 10.9 mEq/L (5.0-15.0); Bilirubin Total 0.6 mg/dL (0.2-1.0); Globulin 4.6 g/dL (2.3-3.5); Potassium 3.9 mEq/L (3.5-5.1)
[2024-02-15] MEDS: LIDOCAINE 5% 30 GM TUBE (for wound healing center only) TOP SCH (09:00)
[2024-02-15] MEDS: INSULIN GLARGINE 100 UNIT/ML SQ SCH (09:48)
[2024-02-15] MEDS: HYDROMORPHONE HCL 1 MG/ML INJ IV PRN (09:50)
--- NOTE | 2024-02-15 10:43 | P.PN ---
Subjective Date of Service: 02/15/24 Chief Complaint: acute on chronic pancreatitis Subjective: No new changes Patient continued to complain of left upper quadrant pain requesting IV Dilaudid. He will comfortably in bed. Patient tolerated oral diet well without any nausea and vomiting. Physical Examination - Vital Signs Temperature: 97.7 F Blood Pressure: 117/64 Pulse: 71 Respirations: 17 Pulse Ox (%): 99 - Physical Exam Other Physical/Emotional Findings: - Physical Exam. General: Not acutely ill looking, in moderate apparent distress complaining of abdominal pain. HEENT: Normocephalic, atraumatic, mild icteric sclera, nonanemic conjunctivae. Neck: Supple, without JVD or goiter or thyroid mass. Respiratory: Normal breathing effort, clear to auscultation bilaterally, no crackles no wheezing or rhonchi. Cardiovascular: Regular rate and rhythm, S1, S2 normal, no murmur no gallop. Gastrointestinal: Normal bowel sounds, none distended, mild tenderness in the left upper quadrant, no ecchymosis, No ascites, , No masses, no hepatosplenomegaly. Musculoskeletal: No clubbing, No peripheral edema. Integumentary: No rashes. Lymphatics: No axilla or cervical lymphadenopathy. Neurology; alert awake oriented x3, no focal neurologic deficit Assessment And Plan - Plan 49-year-old French-speaking man with a past medical history significant for chronic pancreatitis, DM insulin-dependent (30 units daily), s/p cholecystectomy fatty liver disease, HDL on omega-3, fenofibrate, gemfibrozil, and GERD presented to the emergency department complaining of abdominal pain and nausea x 2 days. #1 recurrent hyperTG acute pancreatitis on chronic pancreatitis Clinically resolved except persistent left upper quadrant pain asking for IV pain medication today TG is 197, lipase normalized Treated with 3 days of insulin infusion, switched to subcu insulin on February 10 and transferred to medical floor on February 11 Initial TG 3900, lipase elevated over 1600, CT of the abdomen and pelvis no pancreatic necrosis but edematous pancreatic head with macroscopic calcification status postcholecystectomy, repeat CT of abdomen on February 13 to evaluate persistent left upper quadrant pain, no sign of local complication but increased edema and hema pancreatic fat stranding compared with initial CT, which is expected I will continue oral diet, change pain medication back to Dilaudid 1 mg every 4 as needed per patient request #2 severe hypertriglyceridemia related to #4 I will continue 40 mg atorvastatin, 600 mg gemfibrozil twice daily, 2 g omega-3 twice daily today's TG is 197 #2 mild DKA related #3 Resolved Initial bicarb 15, anion gap 21, positive serum beta hydroxybutyric acid, random blood sugar over 250, #3 uncontrolled type 2 diabetes hemoglobin A1c on admission 11.2 Fasting blood sugar over 200 noted, I will titrate Lantus to 36 unit x 20% keep him on 5 unit prandial insulin x 3 and moderate corrective insulin, metformin on hold in case patient need repeat CT scan with IV contrast in the next few days Patient needs stricter diabetic control for #1 and #2 #4 nonspecific liver function abnormality secondary to nonalcoholic fatty liver related to #3 Liver function test normalized,, liver ultrasound showed mildly dilated CBD 11 mm, which can be attributed to postcholecystectomy state and edematous pancreatitis of pancreatic head at this time, I do not believe patient benefit from MRCP. DVT prophylaxis enoxaparin subcu, Disposition, plan to discharge home once his left upper quadrant pain is reasonably controlled on oral analgesics
[2024-02-15] MEDS: INSULIN REGULAR (HUMAN) 100 UNIT/ML SQ SCH (12:44)
[2024-02-16] MEDS: LIDOCAINE 5% OINT 30 GM TUBE TOP SCH (12:45)
[2024-02-16] MEDS: NA CHLORIDE 0.9% 1,000 ML IV SCH (16:49)
[2024-02-18 07:41] LABS: Absolute Eosinophils 0.1 K/uL (0-0.5); Absolute Lymphocytes (CBC) 1.1 K/uL (0.7-4.9); Absolute Monocytes 0.3 K/uL (0.1-1.3); Absolute Neutrophil 3.4 K/uL (1.8-8.0); Basophils % 0.2 % (0-1.3); Eosinophils % 1.1 % (0-4.4); Hematocrit 31.4 % (39.6-49.0); Hemoglobin 10.5 g/dL (13.6-17.9); Lymphocytes % 23.2 % (15.3-44.8); MCH 27.9 pg (27.0-35.0); MCHC 33.3 g/dL (32.0-36.0); MCV 83.8 fL (80-100); MPV 8.4 fL (7.6-11.3); Monocytes % 6.4 % (3.3-12.3); Neutrophils % 69.1 % (41.7-73.7); Nucleated Red Blood Cells % 0.1 % (0-0); Platelets 301 thou/uL (152-406); RBC Red Blood Cell Count 3.75 M/uL (4.33-5.43); Red Cell Distribution Width 14.1 % (12.1-15.2)
[2024-02-18 07:50] LABS: Albumin 2.4 g/dL (3.4-5.0); Albumin/Globulin Ratio 0.6 (1.1-1.8); Anion Gap 7.5 mEq/L (5.0-15.0); Bilirubin Total 0.4 mg/dL (0.2-1.0); Globulin 4.3 g/dL (2.3-3.5); Magnesium 1.7 mg/dL (1.6-2.4); Potassium 3.5 mEq/L (3.5-5.1); Protein, Total 6.7 g/dL (6.4-8.2)
--- NOTE | 2024-02-18 07:57 | RAD REPORT ---
EXAMINATION: CT ABDOMEN AND PELVIS WITH CONTRAST CLINICAL INDICATION: Male, 49 years old.pancreatitis TECHNIQUE: CT abdomen and pelvis was performed, after the administration of IV contrast, [facility]. Axial, sagittal and coronal reconstructions were obtained. One or more of the following dose reduction techniques were used: Automated exposure control, adjustment of the mA and/o r kV according to patient size, and/or iterative reconstruction. Unless otherwise specified, incidental findings do not require dedicated imaging follow-up. [id number]. COMPARISON: 02/08/2024, 02/14/2024 FINDINGS: LOWER CHEST: The visualized lung bases are clear. LIVER: Hepatic steatosis. No focal mass. GALLBLADDER/BILE DUCT: Cholecystectomy.?similar extrahepatic biliary duct dilatation. PANCREAS: Sequela of acute on chronic pancreatitis. There are several loculated fluid collections whi ch have developed since 02/08/2024. The largest measures 2.3 x 3.1 cm at the tail. There is a fluid collection at the pancreatic head measuring 2.5 x 1.4 cm. The distal body and tail the pancreas no lo nger has a normal enhancement pattern and may be necrotic. If this indeed represents necrosis, it likely involves 20-30% of the pancreatic volume. SPLEEN: Normal size. No focal lesion. ADRENALS: Normal; no mass. KIDNEYS AND URETERS: Normal size and contour. No hydronephrosis. GASTROINTESTINAL TRACT: Stomach is non-dilated. Small bowel has normal course and caliber. No colonic wall thickening or pericolonic inflammatory changes. PERITONEUM: No ascites. LYMPH NODES: No lymphadenopathy. ABDOMINAL AORTA AND OTHER VESSELS: Normal caliber aorta and IVC. Significant mass effect on the splen ic vein and SMV. Cannot exclude splenic vein thrombosis. URINARY BLADDER: Normal contour. REPRODUCTIVE ORGANS: No pathologic process MUSCULOSKELETAL: No acute or suspicious osseous abnormality. ADDITIONAL FINDINGS: None. IMPRESSION: Sequela of acute on chronic pancreatitis. Compared with the prior contrast-enhanced exam from 02/08/20 24, interval development of multiple acute peripancreatic fluid collections. Whether this represents acute peripancreatic fluid collections versus acute postnecrotic fluid collections is unce rtain. The residual parenchyma at the distal body and tail has significant hypoenhancement which does raise some concern for necrosis. Follow-up imaging is suggested. Also noted is significant mass effect on the SMV and portal vein with portal vein occlusion.
--- NOTE | 2024-02-18 13:55 | RAD REPORT ---
EXAMINATION: MRI ABDOMEN WITHOUT AND WITH CONTRAST CLINICAL INDICATION: Male, 49 years old. with focus on the upper abdomen; pancreatitis mass TECHNIQUE: Multiplanar, multi sequence imaging of the abdomen was performed before and after administ ration of gadolinium-based IV contrast. Unless otherwise specified, incidental findings do not require dedicated imaging follow-up. Unless otherwise specified, incidental findings do not require d edicated imaging follow-up. COMPARISON: 02/18/2024 FINDINGS: LIVER: Normal in size, contour, and signal without evidence of fatty infiltration or iron deposition. No focal lesion. GALLBLADDER: Surgically absent. BILE DUCTS: No biliary ductal dilatation. SPLEEN: Normal size. No focal lesion. PANCREAS: Edematous appearance to the pancreatic parenchyma. Ill-defined somewhat irregular rim-enhan cing fluid collection in the tail the pancreas measures 39 x 24 mm. A similar collection is present measuring 25 x 13 mm in the region of the uncinate process of the pancreas. There is inflammation josesito ng the left anterior pararenal fascia. ADRENALS: Normal; no mass. KIDNEYS: Normal size and contour. No hydronephrosis. LYMPH NODES: No lymphadenopathy. ADDITIONAL FINDINGS: None. IMPRESSION: Acute pancreatitis pattern is noted with irregular rim-enhancing collections as detailed, could repre sent areas of focal necrosis, early abscesses or developing pseudocyst.
[2024-02-18 22:16] VITALS: O2SAT 100
--- NOTE | 2024-02-19 15:22 | P.PN ---
Date of Service: 02/16/24 Subjective Patient clinically doing well. Patient denies any new complaints. Physical Examination - Vital Signs Reviewed - Physical Exam General: Alert, Oriented x3, Mild distress Respiratory: Clear to auscultation bilaterally Cardiovascular: No edema, Regular rate/rhythm, No gallops, No rubs, No murmurs Gastrointestinal: Minimal tenderness epigastric region with no rebound or guarding Musculoskeletal: No abnormalities Neurological: No focal deficits Assessment and Plan - Problems (Diagnosis) (1) Acute on chronic pancreatitis Current Visit: Yes Status: Acute (2) Diabetes mellitus Current Visit: No Status: Chronic Qualifiers: Diabetes mellitus type: type 2 Diabetes mellitus residential insulin use: with buttermaker helper use Diabetes mellitus complication status: with hyperglycemia Qualified Code(s): E11.65 - Type 2 diabetes mellitus with hyperglycemia; Z79.4 - termite treater (current) use of insulin (3) Fatty liver Current Visit: No Status: Chronic (4) GERD (gastroesophageal reflux disease) Current Visit: No Status: Chronic Qualifiers: Esophagitis presence: without esophagitis Qualified Code(s): K21.9 - Gastro-esophageal reflux disease without esophagitis (5) Hypertriglyceridemia Current Visit: No Status: Chronic - Plan (1) Acute on chronic pancreatitis Patient clinically doing better. CT imaging will be repeated. Start clear liquid diet has been normal pain. Monitor lipase level. (2) Diabetes mellitus Strict blood sugar control; sliding scale as needed (3) Fatty liver Monitor LFTs; outpatient follow-up (4) GERD (gastroesophageal reflux disease) PPI (5) Hypertriglyceridemia Continue with Tricor and fish oil capsules.
--- NOTE | 2024-02-19 15:25 | P.PN ---
Date of Service: 02/17/24 Subjective Symptoms have improved. Tolerating liquid diet. Pain medication as tolerated. CT imaging in AM. Physical Examination - Vital Signs Reviewed - Physical Exam General: Alert, Oriented x3, Mild distress Respiratory: Clear to auscultation bilaterally Cardiovascular: No edema, Regular rate/rhythm, No gallops, No rubs, No murmurs Gastrointestinal: Minimal tenderness epigastric region with no rebound or guarding Musculoskeletal: No abnormalities Neurological: No focal deficits Assessment and Plan - Problems (Diagnosis) (1) Acute on chronic pancreatitis Current Visit: Yes Status: Acute (2) Diabetes mellitus Current Visit: No Status: Chronic Qualifiers: Diabetes mellitus type: type 2 Diabetes mellitus director long term care insulin use: with director long term care use Diabetes mellitus complication status: with hyperglycemia Qualified Code(s): E11.65 - Type 2 diabetes mellitus with hyperglycemia; Z79.4 - termite treater helper (current) use of insulin (3) Fatty liver Current Visit: No Status: Chronic (4) GERD (gastroesophageal reflux disease) Current Visit: No Status: Chronic Qualifiers: Esophagitis presence: without esophagitis Qualified Code(s): K21.9 - Gastro-esophageal reflux disease without esophagitis (5) Hypertriglyceridemia Current Visit: No Status: Chronic Plan (1) Acute on chronic pancreatitis Symptoms are much improved. Pain is better controlled. CT imaging pending in the morning. (2) Diabetes mellitus Strict blood sugar control; sliding scale as needed (3) Fatty liver Outpatient follow-up (4) GERD (gastroesophageal reflux disease) Continue with PPI (5) Hypertriglyceridemia Continue with Tricor and fish oil capsules. Check triglyceride levels.
--- NOTE | 2024-02-19 15:31 | P.PN ---
Date of Service: 02/19/24 Subjective Imaging studies suggesting fluid collection. Repeat CT imaging which will phase contrast for surgery consultation recommendation. Plan to perform an a.m.. Physical Examination - Vital Signs Reviewed - Physical Exam General: Alert, Oriented x3, Mild distress Respiratory: Clear to auscultation bilaterally Cardiovascular: No edema, Regular rate/rhythm, No gallops, No rubs, No murmurs Gastrointestinal: Minimal tenderness epigastric region with no rebound or guarding Musculoskeletal: No abnormalities Neurological: No focal deficits Assessment and Plan - Problems (Diagnosis) (1) Acute on chronic pancreatitis Current Visit: Yes Status: Acute (2) Diabetes mellitus Current Visit: No Status: Chronic Diabetes mellitus type: type 2 Diabetes mellitus mcc insulin use: with mcc use Diabetes mellitus complication status: with hyperglycemia Qualified Code(s): E11.65 - Type 2 diabetes mellitus with hyperglycemia; Z79.4 - snf (current) use of insulin (3) Fatty liver Current Visit: No Status: Chronic (4) GERD (gastroesophageal reflux disease) Current Visit: No Status: Chronic Esophagitis presence: without esophagitis Qualified Code(s): K21.9 - Gastro- esophageal reflux disease without esophagitis (5) Hypertriglyceridemia Current Visit: No Status: Chronic Plan (1) Acute on chronic pancreatitis CT imaging and MRI are positive for fluid collection. Unknown etiology but most likely developing pseudocyst formation. Consult surgery and they are recommending triple phase CT scan for further evaluation. (2) Diabetes mellitus Strict blood sugar control; sliding scale as needed (3) Fatty liver Outpatient follow-up (4) GERD (gastroesophageal reflux disease) Continue with PPI (5) Hypertriglyceridemia Continue with Tricor and fish oil capsules. Check triglyceride levels.
--- NOTE | 2024-02-19 15:31 | P.PN ---
Date of Service: 02/18/[address] imaging and MRI reviewed. Fluid collection is likely developing pseudocyst. No fever no white blood cell count. Get surgical input. Reduce diet to clear liquid diet at this time. Physical Examination - Vital Signs Reviewed - Physical Exam General: Alert, Oriented x3, Mild distress Respiratory: Clear to auscultation bilaterally Cardiovascular: No edema, Regular rate/rhythm, No gallops, No rubs, No murmurs Gastrointestinal: Minimal tenderness epigastric region with no rebound or guarding Musculoskeletal: No abnormalities Neurological: No focal deficits Assessment and Plan - Problems (Diagnosis) (1) Acute on chronic pancreatitis Current Visit: Yes Status: Acute (2) Diabetes mellitus Current Visit: No Status: Chronic Diabetes mellitus type: type 2 Diabetes mellitus assisted insulin use: with assisted use Diabetes mellitus complication status: with hyperglycemia Qualified Code(s): E11.65 - Type 2 diabetes mellitus with hyperglycemia; Z79.4 - long term care phlebotomist (current) use of insulin (3) Fatty liver Current Visit: No Status: Chronic (4) GERD (gastroesophageal reflux disease) Current Visit: No Status: Chronic Esophagitis presence: without esophagitis Qualified Code(s): K21.9 - Gastro- esophageal reflux disease without esophagitis (5) Hypertriglyceridemia Current Visit: No Status: Chronic Plan (1) Acute on chronic pancreatitis CT imaging and MRI are positive for fluid collection. Unknown etiology but most likely developing pseudocyst formation. Patient may have had prior pseudocyst. Will review records. Consulted surgery and clear liquid diet at this time. (2) Diabetes mellitus Strict blood sugar control; sliding scale as needed (3) Fatty liver Outpatient follow-up (4) GERD (gastroesophageal reflux disease) Continue with PPI (5) Hypertriglyceridemia Continue with Tricor and fish oil capsules. Check triglyceride levels.
[2024-02-21 06:22] LABS: Absolute Eosinophils 0.1 K/uL (0-0.5); Absolute Lymphocytes (CBC) 1.7 K/uL (0.7-4.9); Absolute Monocytes 0.4 K/uL (0.1-1.3); Absolute Neutrophil 3.6 K/uL (1.8-8.0); Basophils % 0.4 % (0-1.3); Eosinophils % 1.2 % (0-4.4); Hematocrit 30.9 % (39.6-49.0); Hemoglobin 10.4 g/dL (13.6-17.9); Lymphocytes % 29.4 % (15.3-44.8); MCH 27.9 pg (27.0-35.0); MCHC 33.6 g/dL (32.0-36.0); MPV 7.6 fL (7.6-11.3); Monocytes % 7.3 % (3.3-12.3); Neutrophils % 61.7 % (41.7-73.7); Nucleated Red Blood Cells % 0.1 % (0-0); Platelets 300 thou/uL (152-406); RBC Red Blood Cell Count 3.72 M/uL (4.33-5.43); Red Cell Distribution Width 13.8 % (12.1-15.2)
[2024-02-21 06:39] LABS: Albumin 2.5 g/dL (3.4-5.0); Albumin/Globulin Ratio 0.6 (1.1-1.8); Anion Gap 6.4 mEq/L (5.0-15.0); Bilirubin Total 0.4 mg/dL (0.2-1.0); Globulin 4.2 g/dL (2.3-3.5); Magnesium 1.7 mg/dL (1.6-2.4); Potassium 3.4 mEq/L (3.5-5.1); Protein, Total 6.7 g/dL (6.4-8.2)
--- NOTE | 2024-02-21 09:09 | RAD REPORT ---
EXAMINATION: Abdomen W/Wo Contrast CLINICAL INDICATION: Male, 49 years old. pancreatitis; TECHNIQUE: CT abdomen pancreas protocol, which includes non-contrast, aterial, venous and approximate ly 3 min delayed sequences as per department protocol. Axial, sagittal and coronal reconstructions were obtained. One or more of the following dose reduction techniques were used: Automated exposure c ontrol, adjustment of the mA and kV according to the patient size, and iterative reconstruction. Unless otherwise specified, incidental findings do not require dedicated imaging follow-up. COMPARISON: MRI 02/18/2024, CT same date FINDINGS: LOWER CHEST: The visualized lung bases are clear. LIVER: Mild diffuse fatty liver is noted. Cholecystectomy clips BILIARY SYSTEM: No suspicious abnormalities. SPLEEN: Normal size. No focal lesion. PANCREAS: Several calcifications are again noted in the pancreatic head. Mild inflammatory changes ar e seen surrounding the pancreatic tail. Mild thickening of the anterior pararenal fascia. Poorly defined 40 x 17 mm fluid collection seen slightly larger than prior study in the pancreatic tail. Unc inate process small fluid collection measures 27 x 12 mm, similar to slightly enlarged relative to prior study. ADRENALS: Normal; no mass. KIDNEYS: Normal size and contour. No hydronephrosis. GASTROINTESTINAL TRACT: No evidence of bowel obstruction, significant free fluid, free air or abscess . LYMPH NODES: No lymphadenopathy. MUSCULOSKELETAL: No acute or suspicious osseous abnormality. ADDITIONAL FINDINGS: None. IMPRESSION: Acute on chronic pancreatitis findings are again seen, the degree of inflammatory changes surrounding the pancreas is mildly improved. Two somewhat poorly defined fluid collections in the pancreas as detailed above have mildly increased in size, favored to represent developing pseudocysts.
[2024-02-21] MEDS: MAGNESIUM SULFATE 1 gm IVPB 1 GM/100 ML BAG IV ONE (09:22)
[2024-02-21] MEDS: KCL 20 MEQ/100 mL IVPB 20 MEQ/100 ML BAG IV SCH (09:22)
[2024-02-21] MEDS: HYDROCODONE/APAP 10/325 TAB PO PRN (17:07)
[2024-02-22 16:24] VITALS: BP 117/64; TEMP 97.8
--- NOTE | 2024-02-23 18:41 | P.PN ---
Date of Service: 02/20/24 Subjective His triple phase contrast pending. If no necrosis and plan to advanced diet. Physical Examination - Vital Signs Reviewed - Physical Exam General: Alert, Oriented x3, Mild distress Respiratory: Clear to auscultation bilaterally Cardiovascular: No edema, Regular rate/rhythm, No gallops, No rubs, No murmurs Gastrointestinal: Minimal tenderness epigastric region with no rebound or guarding Musculoskeletal: No abnormalities Neurological: No focal deficits Assessment and Plan - Problems (Diagnosis) (1) Acute on chronic pancreatitis Current Visit: Yes Status: Acute (2) Diabetes mellitus Current Visit: No Status: Chronic Diabetes mellitus type: type 2 Diabetes mellitus halfway insulin use: with dedicated intermodal truck driver use Diabetes mellitus complication status: with hyperglycemia Qualified Code(s): E11.65 - Type 2 diabetes mellitus with hyperglycemia; Z79.4 - intermediate card tender (current) use of insulin (3) Fatty liver Current Visit: No Status: Chronic (4) GERD (gastroesophageal reflux disease) Current Visit: No Status: Chronic Esophagitis presence: without esophagitis Qualified Code(s): K21.9 - Gastro- esophageal reflux disease without esophagitis (5) Hypertriglyceridemia Current Visit: No Status: Chronic Plan (1) Acute on chronic pancreatitis Triple phase contrast suggestive of pseudocyst formation. Continue to advance diet as tolerated. (2) Diabetes mellitus Strict blood sugar control; sliding scale as needed (3) Fatty liver Outpatient follow-up (4) GERD (gastroesophageal reflux disease) Continue with PPI (5) Hypertriglyceridemia Continue with Tricor and fish oil capsules. Check triglyceride levels.
--- NOTE | 2024-02-23 18:43 | P.PN ---
Date of Service: 02/21/24 Subjective Triple phase contrast reveals pseudocyst formation. Advancing diet as tolerated. If patient tolerates diet and anticipate discharge in a.m.. Physical Examination - Vital Signs Reviewed - Physical Exam General: Alert, Oriented x3, Mild distress Respiratory: Clear to auscultation bilaterally Cardiovascular: No edema, Regular rate/rhythm, No gallops, No rubs, No murmurs Gastrointestinal: Minimal tenderness epigastric region with no rebound or guarding Musculoskeletal: No abnormalities Neurological: No focal deficits Assessment and Plan - Problems (Diagnosis) (1) Acute on chronic pancreatitis Current Visit: Yes Status: Acute (2) Diabetes mellitus Current Visit: No Status: Chronic Diabetes mellitus type: type 2 Diabetes mellitus retirement insulin use: with supervisor long goods use Diabetes mellitus complication status: with hyperglycemia Qualified Code(s): E11.65 - Type 2 diabetes mellitus with hyperglycemia; Z79.4 - [facility] (current) use of insulin (3) Fatty liver Current Visit: No Status: Chronic (4) GERD (gastroesophageal reflux disease) Current Visit: No Status: Chronic Esophagitis presence: without esophagitis Qualified Code(s): K21.9 - Gastro- esophageal reflux disease without esophagitis (5) Hypertriglyceridemia Current Visit: No Status: Chronic Plan (1) Acute on chronic pancreatitis Triple phase contrast suggestive of pseudocyst formation. Continue to advance diet as tolerated. If tolerates soft diet in a.m. then anticipate discharge home. (2) Diabetes mellitus Strict blood sugar control; sliding scale as needed (3) Fatty liver Outpatient follow-up (4) GERD (gastroesophageal reflux disease) Continue with PPI (5) Hypertriglyceridemia Continue with Tricor and fish oil capsules. Check triglyceride levels.
--- NOTE | 2024-02-23 18:44 | P.DS ---
Discharge Date: 02/22/24 Disposition: ROUTINE DISCHARGE Discharge Condition: GOOD Reason for Admission: acute on chronic pancreatitis Consultations: General surgery Brief History of Present Illness: 49-year-old Italian-speaking man with a past medical history significant for chronic pancreatitis, DM insulin-dependent (30 units daily), fatty liver disease, HDL, and GERD presented to the emergency department complaining of abdominal pain x 2 days. Language line interpretation services was utilized for Italian interpretation. Language ID [id number]. The patient is alert, and oriented x 3. He states he began having abdominal pain that has become progressively worsened today. Patient describes his abdominal pain is located in the left upper abdominal quadrant, with radiation to the low back, and of a stabbing quality. The patient states his abdominal pain is relieved by leaning forward. Also, the patient states he has a history of pancreatitis, and this episode of abdominal pain is similar to what he has experienced in the past. The patient feels nauseous, but denies any episodes of emesis. He is a former smoker, who quit 2 years ago. He denies fever, cough, dyspnea, and urinary symptoms. Hospital Course: Patient developed severe pancreatitis. Patient require insulin drip. Triglycerides normalized. However, patient developed fluid collections which looked to be pseudocyst formation. Advanced diet and patient did well and discharged home. Vital Signs/Physical Exam: Temp Pulse Resp BP Pulse Ox 97.8 F 72 20 117/64 100 02/22/24 16:00 02/22/24 16:00 02/22/24 16:00 02/22/24 16:00 02/22/24 16:00 General: Alert, In no apparent distress, Oriented x3 Other Physical/Emotional Findings: - Physical Exam. General: Not acutely ill looking, in moderate apparent distress complaining of abdominal pain. HEENT: Normocephalic, atraumatic, mild icteric sclera, nonanemic conjunctivae. Neck: Supple, without JVD or goiter or thyroid mass. Respiratory: Normal breathing effort, clear to auscultation bilaterally, no crackles no wheezing or rhonchi. Cardiovascular: Regular rate and rhythm, S1, S2 normal, no murmur no gallop. Gastrointestinal: Normal bowel sounds, none distended, mild tenderness in the left upper quadrant, no ecchymosis, No ascites, , No masses, no hepatosple nomegaly. Musculoskeletal: No clubbing, No peripheral edema. Integumentary: No rashes. Lymphatics: No axilla or cervical lymphadenopathy. Neurology; alert awake oriented x3, no focal neurologic deficit Laboratory Data at Discharge: WBC 5.80 thou/uL (4.3-10.9) 02/21/24 05:54 Hgb 10.4 g/dL (13.6-17.9) L 02/21/24 05:54 Hct 30.9 % (39.6-49.0) L 02/21/24 05:54 Plt Count 300 thou/uL (152-406) 02/21/24 05:54 Sodium 142 mEq/L (136-145) 02/21/24 05:54 Potassium 3.4 mEq/L (3.5-5.1) L 02/21/24 05:54 BUN 4 mg/dL (7-18) L 02/21/24 05:54 Creatinine 0.57 mg/dL (0.70-1.30) L 02/21/24 05:54 Glucose 91 mg/dL (74-106) 02/21/24 05:54 Phosphorus 3.3 mg/dL (2.5-4.9) 02/13/24 05:30 Magnesium 1.7 mg/dL (1.6-2.4) 02/21/24 05:54 Total Bilirubin 0.4 mg/dL (0.2-1.0) 02/21/24 05:54 AST 19 U/L (15-37) 02/21/24 05:54 ALT 24 U/L (16-61) 02/21/24 05:54 Alkaline Phosphatase 121 U/L (45-117) H 02/21/24 05:54 Triglycerides 100 mg/dL (<150) 02/21/24 05:54 Cholesterol 445 mg/dL (<200) H 02/08/24 23:13 LDL Cholesterol Direct 96 mg/dL (100-129) L 02/08/24 23:13 HDL Cholesterol 40 mg/dL (40-60) 02/08/24 23:13 Cholesterol/HDL Ratio 11.13 02/08/24 23:13 Lipase 42 U/L (13-75) 02/21/24 05:54 Home Medications: Metformin HCl 1,000 mg PO BID 02/09/24 Atorvastatin Calcium [Lipitor] 40 mg PO BEDTIME #30 tab 02/22/24 Hydrocodone 10/APAP 325 [[place] 10/325*] 1 tab PO Q6H PRN #30 tab 02/22/24 Insulin Glargine,Hum.rec.anlog [Semglee] 36 unit SQ DAILY #2 vial 02/22/24 Semaglutide [Rybelsus] 14 mg PO DAILY #30 tab 02/22/24 gemfibroziL [Lopid*] 600 mg PO BID #60 tab 02/22/24 New Medications: Atorvastatin Calcium [Lipitor] 40 mg PO BEDTIME #30 tab gemfibroziL [Lopid*] 600 mg PO BID #60 tab Hydrocodone 10/APAP 325 [[place] 10/325*] 1 tab PO Q6H PRN #30 tab PRN Reason: Pain Scale 5-7 (Moderate) Semaglutide [Rybelsus] 14 mg PO DAILY #30 tab Insulin Glargine,Hum.rec.anlog [Semglee] 36 unit SQ DAILY #2 vial Physician Discharge Instructions: -DC IV and DC home -Follow-up with PCP in 1 to 2 weeks -Follow-up with Gastroenterology, Dr. Centeno or Dr. Bishop, in 1 to 2 weeks -Follow-up with surgery, Dr. Swann, in 1 week -Please call Dr. Mckeon at [phone] if any questions regarding hospital stay -Please call nursing station at [phone] if any nursing or medication questions -Return to the emergency room if symptoms worsen Diet: low fat Activity: Fall precautions Followup: Erwin Merrill DO, DO [Primary Care Provider] - Time spent managing pt's care (in minutes): 35
== END 2024-02-22 16:27 | disposition home or self-care (01) | DRG 438 ==
LOC: ER 13:39 → ERHOLD 19:19 → 2ND 21:02 → 3RD-ICU 02-09 01:15 → 4TH 02-12 15:14
PROVIDERS: ADMIT Hospitalist; ATTEND Hospitalist
DX: K85.20 Alcohol induced acute pancreatitis without necrosis or infection (principal); E11.10 Type 2 diabetes mellitus with ketoacidosis without coma; K86.3 Pseudocyst of pancreas; K86.0 Alcohol-induced chronic pancreatitis; E78.5 Hyperlipidemia, unspecified; E78.1 Pure hyperglyceridemia; K21.9 Gastro-esophageal reflux disease without esophagitis; F10.10 Alcohol abuse, uncomplicated; R94.5 Abnormal results of liver function studies; Z79.4 Long term (current) use of insulin; Z98.52 Vasectomy status; Z90.49 Acquired absence of other specified parts of digestive tract; Z87.891 Personal history of nicotine dependence; Z79.899 Other long term (current) drug therapy
CPT/HCPCS: 36415; 74150; 74170; 74177; 74183; 76705; 76870; 80048; 80053; 80061; 80076; 81001; 82010; 82565; 82947; 83036; 83605; 83690; 83735; 84100; 84132; 84478; 85025; 87040; 94760; 96361; 96374; 96375; 97116; 97161; 99285; A9577; J1171; J1650; J2270; J2405; J2470; J3360; J3475; J3480; J7030; J7042; J7050; Q9967

== ENCOUNTER 2024-10-11 05:50 | Inpatient (IN) | payer OTHER ==
[2024-10-11] MEDS ORDERED: ONDANSETRON 4 MG/2 ML VIAL ONE (06:37)
[2024-10-11] MEDS ORDERED: PANTOPRAZOLE 40 MG INJ ONE (06:37)
[2024-10-11] MEDS ORDERED: HYDROMORPHONE HCL 1 MG/ML INJ ONE (06:37)
[2024-10-11] MEDS ORDERED: NA CHLORIDE 0.9% 1,000 ML ONE (06:37)
--- NOTE | 2024-10-11 06:56 | ER ---
Nurse's Notes [facility] Name: Javier Rutherford Age: 49 yrs Sex: Male : 1975 Arrival Date: 10/11/2024 Time: 05:50 Bed 18 Private MD: Diagnosis: Other chronic pancreatitis;Abdominal pain, Generalized;Hyperglycemia, unspecified;Dehydration Presentation: 10/11 06:15 Chief complaint: Patient states: PT STATES HE HAD EPIGASTRIC PAIN YESTERDAY AND WOKE UP br2 THIS MORNING WITH LUQ PAIN AND NAUSEA. Coronavirus screen: Client denies travel out of the [place] in the last 14 days. Ebola Screen: Patient denies exposure to infectious person. Initial Sepsis Screen: Does the patient meet any 2 criteria? No. Patient's initial sepsis screen is negative. Does the patient have a suspected source of infection? No. Patient's initial sepsis screen is negative. Risk Assessment: Do you want to hurt yourself or someone else? Patient reports no desire to harm self or others. Onset of symptoms was October 10, 2024. 06:15 Method Of Arrival: Ambulatory br2 06:15 Acuity: HANY 3 br2 Triage Assessment: 06:17 General: Appears uncomfortable, Behavior is cooperative, restless. Pain: Complains of br2 pain in left upper quadrant Pain currently is 10 out of 10 on a pain scale. EENT: No signs and/or symptoms were reported regarding the EENT system. Neuro: Warren Agitation-Sedation Scale (RASS): 0 - Alert and Calm Level of Consciousness is awake, alert, obeys commands, Oriented to person, place, time, situation. Cardiovascular: Denies chest pain. Respiratory: No deficits noted. Airway is patent Respiratory effort is even, unlabored, Respiratory pattern is regular, symmetrical. GI: Reports upper abdominal pain, nausea. : No signs and/or symptoms were reported regarding the genitourinary system. Derm: No signs and/or symptoms reported regarding the dermatologic system. Musculoskeletal: Capillary refill < 3 seconds, Range of motion: intact in all extremities. Historical: - PMHx: 06:17 Diabetes - NIDDM; fatty liver; Hyperlipidemia; Pancreatitis; br2 - PSHx: 06:17 Cholecystectomy; hernia; Vasectomy; br2 - Immunization history:: Adult Immunizations not up to date. - Infectious Disease History:: Denies. - Social history:: Smoking status: Patient/guardian denies using tobacco, Patient/guardian denies using alcohol, street drugs. - Family history:: not pertinent. Screenin:19 [facility] ED Fall Risk Assessment (Adult) History of falling in the last 3 months, br2 including since admission No falls in past 3 months (0 pts) Confusion or Disorientation No (0 pts) Intoxicated or Sedated No (0 pts) Impaired Gait No (0 pts) Mobility Assist Device Used No (0 pt) Altered Elimination No (0 pt) Score/Fall Risk Level 0 - 2 = Low Risk Oriented to surroundings. Abuse screen: Denies threats or abuse. Denies injuries from another. Nutritional screening: No deficits noted. Tuberculosis screening: No symptoms or risk factors identified. Assessment: 06:20 General: Appears uncomfortable, Behavior is calm, cooperative, restless. Pain: ss12 Complains of pain in left upper quadrant Pain does not radiate. Pain currently is 10 out of 10 on a pain scale. Quality of pain is described as aching, pressure. Neuro: No deficits noted. Level of Consciousness is awake, alert, obeys commands, Oriented to person, place, time, situation. Cardiovascular: No deficits noted. Denies chest pain, Patient's skin is warm and dry. Respiratory: No deficits noted. Airway is patent Respiratory effort is even, unlabored, Respiratory pattern is regular, symmetrical. GI: No deficits noted. No signs and/or symptoms were reported involving the gastrointestinal system. Bowel sounds present X 4 quads. Abd is soft and non tender X 4 quads. : No deficits noted. Urine is clear. EENT: No deficits noted. No signs and/or symptoms were reported regarding the EENT system. Derm: No deficits noted. No signs and/or symptoms reported regarding the dermatologic system. Musculoskeletal: No deficits noted. No signs and/or symptoms reported regarding the musculoskeletal system. 07:26 Reassessment: Patient and/or family updated on plan of care and expected duration. Pain ap3 level reassessed. Patient is alert, oriented x 3, equal unlabored respirations, skin warm/dry/pink. General: Appears comfortable, Behavior is calm, cooperative, appropriate for age. Neuro: Level of Consciousness is awake, alert, obeys commands, Oriented to person, place, time, situation. Respiratory: Airway is patent Respiratory effort is even, unlabored, Respiratory pattern is regular, symmetrical. Vital Signs: 06:15 BP 134 / 80; Pulse 83; Resp 18; Temp 97.3(TE); Pulse Ox 100% on R/A; Weight 81.65 kg; br2 Height 5 ft. 8 in. ; Pain 10/10; 07:26 BP 109 / 59; Pulse 78; Resp 17; Pulse Ox 97% on R/A; ap3 08:35 BP 112 / 71 RA (/reg); Pulse 72; Resp 17; Pulse Ox 99% on R/A; ap3 06:15 Body Mass Index 27.37 (81.65 kg, 172.72 cm) br2 06:15 Pain Scale: Adult br2 ED Course: 05:53 Patient arrived in ED. gm2 06:00 Bret Lopez MD is Attending Physician. erlin 06:17 Triage completed. br2 06:17 Rogelio Mercado, RN is Primary Nurse. ss12 06:17 Arm band placed on right wrist. br2 06:19 Bed in low position. Call light in reach. Side rails up X 1. Provided Education on: br2 PLAN OF CARE. 06:39 Inserted saline lock: 20 gauge in left antecubital area, using aseptic technique. Blood ts3 collected. Flushed with 10 mL NS. 06:39 Initial lab(s) drawn, by woven label designer, sent to lab. ts3 06:39 EKG done, by hvac maintenance technician. ts3 06:39 Urine collected: clean catch specimen, sent to lab. ts3 06:47 XRAY Chest (1 view) In Process Unspecified. EDMS 06:52 Arpan Mckeon MD is Hospitalizing Provider. erlin 06:53 No provider procedures requiring assistance completed. ss12 07:02 Lipid Profile Sent. ss12 07:03 CT Abd/Pelvis - IV Contrast Only Sent. ss12 07:10 Adan Harrington MD is Hospitalizing Provider. la1 08:00 Notified ED physician of a critical lab result(s). GLUCOSE [id number] Dr. Harrington and ARACELI Duran.ll1 08:02 Attending Physician role handed off by Bret Lopez MD rn 08:02 Austin Harrington MD is Attending Physician. rn 08:28 CT Abd/Pelvis - IV Contrast Only In Process Unspecified. EDMS 08:34 Door closed. Noise minimized. Warm blanket given. Pillow given. Head of bed lowered. ap3 08:44 Adan Harrington MD is Hospitalizing Provider. rn Administered Medications: 06:27 CANCELLED (Duplicate Order): morphineor iv 4 mg IVP once over 4 mins erlin 06:40 Drug: Pantoprazole IVP 40 mg IVP once Route: IVP; Site: left antecubital; ss12 07:27 Follow up: Response: No adverse reaction ap3 06:40 Drug: NS 0.9% IV (30 ml/kg) 30 ml/kg IV at bolus once; Sepsis Protocol; to be given as ss12 a bolus over 90 minutes Route: IV; Rate: bolus; Site: left antecubital; 07:52 Follow up: IV Status: Completed infusion; IV Intake: 1000ml ap3 06:40 Drug: Ondansetron IVP 8 mg IVP once; over 2 minutes Route: IVP; Site: left antecubital; ss12 07:27 Follow up: Response: No adverse reaction; Nausea is decreased ap3 06:40 Drug: HYDROmorphone IVP 1 mg IVP once Route: IVP; Site: left antecubital; ss12 07:27 Follow up: Response: No adverse reaction; Pain is decreased; RASS: Alert and Calm (0) ap3 08:23 Drug: Insulin Regular Human Sub-Q 10 units Sub-Q once {Co-Signature: ll1 (Hernán Ramirez3 RN).} {Note: FSBS 418.} Route: Sub-Q; Site: right upper arm; Medication: 07:04 VIS not applicable for this client. ss12 Intake: 07:52 IV: 1000ml; Total: 1000ml. ap3 Outcome: 06:56 Decision to Hospitalize by Provider. erlin 08:44 Decision to Hospitalize by Provider. rn 11:12 Patient left the ED. dd2 Signatures: Dispatcher [employer] EDMS Bret Lopez MD MD cha Nieto, Roman, MD MD rn Attema, Lee, STONE CARRIAGE OPERATOR-C STONE CARRIAGE OPERATOR-Cla1 Renee Rubalcava RN RN ap3 Hernán Ramirez RN RN ll1 Esthela Parmar gm2 Leelee Lugo RN RN br2 DILMA RODRIGUEZ RN RN dd2 Blossom Walker ts3 Rogelio Mercado RN RN ss12 Hernán Ramirez RN ll1 Corrections: (The following items were deleted from the chart) 06:53 06:20 Pain: Complains of pain in left upper quadrant Pain does not radiate. Pain ss12 currently is 9 out of 10 on a pain scale. Quality of pain is described as aching, pressure, ss12
--- NOTE | 2024-10-11 06:57 | EDPHYS ---
Physician Documentation [facility] Name: Javier Rutherford Age: 49 yrs Sex: Male : 1975 Arrival Date: 10/11/2024 Time: 05:50 Bed 18 Private MD: ED Physician Austin Harrington HPI: 10/11 06:29 This 49 yrs old Male presents to ER via Ambulatory with complaints of erlin Abdominal Pain, Flank Pain, Nausea. 06:29 The patient complains of pain in the lumbar area. erlin Historical: - PMHx: 06:17 Diabetes - NIDDM; fatty liver; Hyperlipidemia; Pancreatitis; br2 - PSHx: 06:17 Cholecystectomy; hernia; Vasectomy; br2 - Immunization history:: Adult Immunizations not up to date. - Infectious Disease History:: Denies. - Social history:: Smoking status: Patient/guardian denies using tobacco, Patient/guardian denies using alcohol, street drugs. - Family history:: not pertinent. ROS: 06:29 Constitutional: Negative for fever, chills, and weight loss, Abdomen/GI: Negative for erlin abdominal pain, nausea, vomiting, diarrhea, and constipation, 06:29 Eyes: Negative for injury, pain, redness, and discharge, ENT: Negative for injury, pain, and discharge, Neck: Negative for injury, pain, and swelling, Cardiovascular: Negative for chest pain, palpitations, and edema, Respiratory: Negative for shortness of breath, cough, wheezing, and pleuritic chest pain, Back: Negative for injury and pain, : Negative for injury, bleeding, discharge, and swelling, MS/Extremity: Negative for injury and deformity, Skin: Negative for injury, rash, and discoloration, Neuro: Negative for headache, weakness, numbness, tingling, and seizure, Psych: Negative for depression, anxiety, suicide ideation, homicidal ideation, and hallucinations, Allergy/Immunology: Negative for hives, rash, and allergies, Endocrine: Negative for neck swelling, polydipsia, polyuria, polyphagia, and marked weight changes, Hematologic/Lymphatic: Negative for swollen nodes, abnormal bleeding, and unusual bruising, 06:29 Constitutional: Positive for fatigue, 06:29 Eyes: Positive for 06:29 Abdomen/GI: Positive for abdominal pain, nausea and vomiting, Exam: 06:29 Constitutional: This is a well developed, well nourished patient who is awake, alert, erlin and in no acute distress. Head/Face: Normocephalic, atraumatic. Eyes: Pupils equal round and reactive to light, extra-ocular motions intact. Lids and lashes normal. Conjunctiva and sclera are non-icteric and not injected. Cornea within normal limits. Periorbital areas with no swelling, redness, or edema. ENT: Nares patent. No nasal discharge, no septal abnormalities noted. Tympanic membranes are normal and external auditory canals are clear. Oropharynx with no redness, swelling, or masses, exudates, or evidence of obstruction, uvula midline. Mucous membranes moist. Neck: Trachea midline, no thyromegaly or masses palpated, and no cervical lymphadenopathy. Supple, full range of motion without nuchal rigidity, or vertebral point tenderness. No Meningismus. Chest/axilla: Normal chest wall appearance and motion. Nontender with no deformity. No lesions are appreciated. Cardiovascular: Regular rate and rhythm with a normal S1 and S2. No gallops, murmurs, or rubs. Normal PMI, no JVD. No pulse deficits. Respiratory: Lungs have equal breath sounds bilaterally, clear to auscultation and percussion. No rales, rhonchi or wheezes noted. No increased work of breathing, no retractions or nasal flaring. Back: No spinal tenderness. No costovertebral tenderness. Full range of motion. Male : Normal genitalia with no discharge or lesions. Skin: Warm, dry with normal turgor. Normal color with no rashes, no lesions, and no evidence of cellulitis. MS/ Extremity: Pulses equal, no cyanosis. Neurovascular intact. Full, normal range of motion., bilateral aka Neuro: Awake and alert, GCS 15, oriented to person, place, time, and situation. Cranial nerves II-XII grossly intact. Motor strength 5/5 in all extremities. Sensory grossly intact. Cerebellar exam normal. Normal gait. Psych: Awake, alert, with orientation to person, place and time. Behavior, mood, and affect are within normal limits. 06:29 ECG was reviewed by the Attending Physician. 06:29 Abdomen/GI: Inspection: distension, Bowel sounds: normal, Palpation: moderate abdominal tenderness, in the epigastric area, right upper quadrant and left upper quadrant, Liver: no appreciated palpable abnormalities, Hernia: not appreciated, Vital Signs: 06:15 BP 134 / 80; Pulse 83; Resp 18; Temp 97.3(TE); Pulse Ox 100% on R/A; Weight 81.65 kg; br2 Height 5 ft. 8 in. ; Pain 10/10; 07:26 BP 109 / 59; Pulse 78; Resp 17; Pulse Ox 97% on R/A; ap3 08:35 BP 112 / 71 RA (/reg); Pulse 72; Resp 17; Pulse Ox 99% on R/A; ap3 06:15 Body Mass Index 27.37 (81.65 kg, 172.72 cm) br2 06:15 Pain Scale: Adult br2 MDM: 06:00 Medical Screening Exam initiated erlin 06:29 Differential diagnosis: pyelonephritis, UTI, diverticulitis, pancreatitis, erlin appendicitis, bowel obstruction, coronary artery disease, cholecystitis, Cholelithiasis, diverticulitis, gastritis, gastroesophageal reflux disease, GI Bleed, Hepatitis. Data reviewed: vital signs, nurses notes, lab test result(s), CBC, electrolytes, hepatic panel, EKG, radiologic studies, CT scan. Consideration of Admission/Observation Patient was admitted/placed on observation. Escalation of care including admission/observation considered. I considered the following discharge prescriptions or medication management in the emergency department Medications were administered in the Emergency Department. See MAR. Independent interpretation of the following test(s) in the Emergency Department EKG: See my EKG interpretation above. Test considered but Not performed: MRI: no mrcp. Historians other than the Patient: pt well informed. Care significantly affected by the following chronic conditions: Diabetes, Obesity, pancreatitis, fatty liver, hyperlipids. 08:03 Transition of care: Care assumed from Bret Lopez MD. rn 08:05 ED course: Patient signed out to me by Dr. Lopez pending labs and CT. 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 Labs and imaging still pending.. 08:43 ED course: Labs show hyperglycemia without acidosis or elevated anion gap. 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 Will admit to hospitalist service for further care.. 10/11 06:02 Order name: Basic Metabolic Panel; Complete Time: 08:03 [facility] 10/11 06:02 Order name: CBC with Diff; Complete Time: 07:09 [facility] 10/11 06:02 Order name: LFT's; Complete Time: 08:03 erlin 10/11 06:02 Order name: Magnesium; Complete Time: 08:03 erlin 10/11 06:02 Order name: NT PRO-BNP; Complete Time: 08:03 erlin 10/11 06:02 Order name: PT-INR; Complete Time: 08:03 erlin 10/11 06:02 Order name: Troponin HS; Complete Time: 08:03 erlin 10/11 06:02 Order name: Lipase; Complete Time: 08:03 erlin 10/11 06:02 Order name: UA Rfx Zana Cult if indicated; Complete Time: 07:05 erlin 10/11 06:50 Order name: Lipid Profile; Complete Time: 08:03 EDMS 10/11 08:32 Order name: Glucose, Ancillary Testing; Complete Time: 08:32 EDMS 10/11 09:18 Order name: CBC with Automated Diff EDMS 08/ 09:18 Order name: CBC with Automated Diff EDMS 10/11 09:18 Order name: CBC with Automated Diff EDMS / 09:18 Order name: Comprehensive Metabolic Panel EDMS 08/ 09:18 Order name: Comprehensive Metabolic Panel EDMS 08/ 09:18 Order name: Comprehensive Metabolic Panel EDMS 08/ 09:18 Order name: Comprehensive Metabolic Panel EDMS 08/ 09:18 Order name: Comprehensive Metabolic Panel EDMS 08/ 09:18 Order name: Comprehensive Metabolic Panel EDMS 08/ 09:18 Order name: Lipase EDMS 08/ 09:18 Order name: Lipase EDMS 08/04 09:18 Order name: Lipase EDMS 08/04 09:18 Order name: Lipase EDMS 08/04 09:18 Order name: Magnesium EDMS 08/ 09:18 Order name: Magnesium EDMS 08/ 09:18 Order name: Magnesium EDMS 08/ 09:18 Order name: Magnesium EDMS 08/ 09:18 Order name: Magnesium EDMS 08/ 09:18 Order name: Magnesium EDMS 08/ 09:18 Order name: CBC with Automated Diff EDMS 08/ 09:18 Order name: CBC with Automated Diff EDMS 08/ 09:18 Order name: CBC with Automated Diff EDMS 08/ 10:15 Order name: Glucose, Ancillary Testing EDMS / 06:02 Order name: XRAY Chest (1 view); Complete Time: 08:03 [facility] 10/11 06:22 Order name: CT Abd/Pelvis - IV Contrast Only; Complete Time: 08:43 [facility] 10/11 06:02 Order name: Cardiac monitoring; Complete Time: 06:39 [facility] 10/11 06:02 Order name: EKG - Nurse/Tech; Complete Time: 06:39 [facility] 10/11 06:02 Order name: IV Saline Lock; Complete Time: 06:39 [facility] 10/11 06:02 Order name: Labs collected and sent; Complete Time: 06:39 [facility] 10/11 06:02 Order name: O2 Per Protocol; Complete Time: 06:39 [facility] 10/11 06:02 Order name: O2 Sat Monitoring; Complete Time: 06:39 [facility] 10/11 06:02 Order name: IV Saline Lock - Large Bore; Complete Time: 06:40 [facility] 10/11 06:46 Order name: Misc. Order: RECOLLECT ALL LABS; Complete Time: 07:02 rv1 EC:29 Rate is 83 beats/min. Rhythm is regular. QRS [address] is Normal. [place] interval is normal. QRS erlin interval is normal. QT interval is normal. No Q waves. T waves are Normal. No ST changes noted. Clinical impression: NSR w/ Non-specific ST/T Changes and No evidence of ischemia. Interpreted by me. Reviewed by me. Administered Medications: 06:27 CANCELLED (Duplicate Order): morphineor iv 4 mg IVP once over 4 mins erlin 06:40 Drug: Pantoprazole IVP 40 mg IVP once Route: IVP; Site: left antecubital; ss12 07:27 Follow up: Response: No adverse reaction ap3 06:40 Drug: NS 0.9% IV (30 ml/kg) 30 ml/kg IV at bolus once; Sepsis Protocol; to be given as ss12 a bolus over 90 minutes Route: IV; Rate: bolus; Site: left antecubital; 07:52 Follow up: IV Status: Completed infusion; IV Intake: 1000ml ap3 06:40 Drug: Ondansetron IVP 8 mg IVP once; over 2 minutes Route: IVP; Site: left antecubital; ss12 07:27 Follow up: Response: No adverse reaction; Nausea is decreased ap3 06:40 Drug: HYDROmorphone IVP 1 mg IVP once Route: IVP; Site: left antecubital; ss12 07:27 Follow up: Response: No adverse reaction; Pain is decreased; RASS: Alert and Calm (0) ap3 08:23 Drug: Insulin Regular Human Sub-Q 10 units Sub-Q once {Co-Signature: ll1 (Hernán Ramirez3 RN).} {Note: FSBS 418.} Route: Sub-Q; Site: right upper arm; Disposition Summary: 10/11/24 08:44 Hospitalization Ordered Notes: Hospitalization Status: Inpatient Admission(10/11/24 08:44) rn Provider: Adan Harrington(10/11/24 08:44) rn Location: Telemetry/MedSurg (Inpatient)(10/11/24 08:44) rn Condition: Stable(10/11/24 08:44) rn Problem: an acute exacerbation(10/11/24 08:44) rn Symptoms: have improved(10/11/24 08:44) rn Bed/Room Type: Standard(10/11/24 08:44) rn Room Assignment: 230(10/11/24 09:37) bd Diagnosis - Other chronic pancreatitis(10/11/24 08:44) rn - Abdominal pain, Generalized rn - Hyperglycemia, unspecified rn - Dehydration rn Forms: - Medication Reconciliation Form rn - SBAR form rn - Leadership Thank You Letter rn Signatures: Dispatcher [employer] EDMS Marcie Marie Corey, MD MD cha Nieto, Roman, MD MD rn Attema, Lee, TREND INVESTIGATOR-C TREND INVESTIGATOR-Cla1 Renee Rubalcava RN RN ap3 Laura Lubin rv1 Leelee Lugo RN RN br2 Rogelio Mercado RN RN ss12 Hernán Ramirez RN ll1 Corrections: (The following items were deleted from the chart) 06:03 06:03 BASIC METABOLIC PANEL+C.LAB.BRZ ordered. EDMS EDMS 06:03 06:03 CBC+H.LAB.BRZ ordered. EDMS EDMS 06:03 06:03 HEPATIC FUNCTION+C.LAB.BRZ ordered. EDMS EDMS 06:03 06:03 MAGNESIUM+C.LAB.BRZ ordered. EDMS EDMS 06:03 06:03 PROBNP+C.LAB.BRZ ordered. EDMS EDMS 06:03 06:03 PROTIME (+INR)+COAG.LAB.BRZ ordered. EDMS EDMS 06:03 06:03 Troponin High Sensitivity+C.LAB.BRZ ordered. EDMS EDMS 06:03 06:03 LIPASE+C.LAB.BRZ ordered. EDMS EDMS 06:03 06:03 UA Rfx Zana Cult if indicated+U.LAB.BRZ ordered. EDMS EDMS 06:03 06:03 Chest Single View+RAD.RAD.BRZ ordered. EDMS EDMS 06:27 06:02 morphine IVP or IV 4 mg IVP once over 4 mins ordered. erlin kern 06:49 06:22 LIPID PROFILE+C.LAB.BRZ ordered. EDMS EDMS 07:10 06:56 Arpan Mckeon cha 08:03 06:56 Inpatient Admission erlin rn 08:03 06:56 Telemetry/MedSurg (Inpatient) erlin rn 08:03 06:56 Fair erlin rn 08:03 06:56 new erlin rn 08:03 06:56 have improved erlin rn 08:03 06:56 Standard erlin rn 08:03 06:56 erlin rn 08:03 06:56 Epigastric abdominal tenderness erlin rn 08:03 06:56 Other chronic pancreatitis erlin rn 08:03 06:56 Other acute pancreatitis without necrosis or infection erlin rn 08:03 06:56 Nausea erlin rn 08:03 07:10 Adan Harrington rn 09:37 08:44 rn bd
[2024-10-11 06:58] LABS: Urine Microscopic Reflex YN NO UMIC
[2024-10-11 07:05] LABS: Absolute Lymphocytes (CBC) 1.1 K/uL (0.7-4.9); Hematocrit 39.3 % (39.6-49.0); Hemoglobin 13.8 g/dL (13.6-17.9); MCH 29.0 pg (27.0-35.0); MCHC 35.2 g/dL (32.0-36.0); MCV 82.5 fL (80-100); MPV 10.9 fL (7.6-11.3); Nucleated RBC Absolute Count 0.0 (0-0); Nucleated Red Blood Cells % 0.2 % (0-0); RBC Red Blood Cell Count 4.77 M/uL (4.33-5.43); White Blood Count 7.70 thou/uL (4.3-10.9)
[2024-10-11 07:36] LABS: PT Prothrombin Time 10.5 SECONDS (10-13.0); Protime INR 0.93
--- NOTE | 2024-10-11 07:45 | RAD REPORT ---
EXAMINATION: ONE VIEW CHEST XR CLINICAL INDICATION: ABDOMINAL DISTENTION TECHNIQUE: Frontal chest projection is submitted. Examination is limited by patient positioning and t echnique. COMPARISON: 03/06/2022 FINDINGS: The lungs are well inflated and clear. The heart is upper limit of normal in size. No displaced fract ures identified. IMPRESSION: No acute intrathoracic abnormalities.
[2024-10-11 07:51] LABS: ALT/SGPT 35 U/L (16-61); Albumin 3.8 g/dL (3.4-5.0); Albumin/Globulin Ratio 1.0 (1.1-1.8); Alkaline Phosphatase 96 U/L (45-117); Anion Gap 15.3 mEq/L (5.0-15.0); BUN Blood Urea Nitrogen 21 mg/dL (7-18); Globulin 4.0 g/dL (2.3-3.5); HDL Cholesterol 22 mg/dL (40-60); LDL Cholesterol, Calculated 8 mg/dL (<130); LDL Cholesterol,Calc NonReport 8; Lipase 497 U/L (13-75); NT PRO-BNP 38 pg/mL (<125); Troponin High Sensitivity 4.2 pg/mL (<58.9)
[2024-10-11 07:54] LABS: Potassium 5.3 mEq/L (3.5-5.1)
[2024-10-11 07:55] LABS: AST/SGOT 47 U/L (15-37); Bilirubin Indirect, Calculated 0.6 mg/dL (0.2-0.8); Magnesium 2.3 mg/dL (1.6-2.4)
[2024-10-11 07:56] LABS: Glucose Level 588 mg/dL (74-106)
[2024-10-11] MEDS ORDERED: INSULIN REGULAR (HUMAN) 100 UNIT/ML ONE (08:17)
--- NOTE | 2024-10-11 08:41 | RAD REPORT ---
EXAMINATION: CT ABDOMEN AND PELVIS WITH CONTRAST CLINICAL INDICATION: ABD PAIN TECHNIQUE: CT abdomen and pelvis was performed, after the administration of IV contrast, as per [facility] protocol. Axial, sagittal and coronal reconstructions were obtained. One or more of the following dose reduction techniques were used: Automated exposure control, adjustment of the mA and k V according to patient size, and iterative reconstruction. Unless otherwise specified, incidental findings do not require dedicated imaging follow-up. COMPARISON: No prior exam. FINDINGS: LOWER CHEST: The visualized lung bases are clear. LIVER: Normal in size and contour. No focal lesion. Cholecystectomy clips. SPLEEN: Normal size. No focal lesion. PANCREAS: Chronic pancreatitis suspected calcifications in the region of the pancreatic head. ADRENALS: Normal; no mass. KIDNEYS: Normal size and contour. No hydronephrosis. GASTROINTESTINAL TRACT: Moderate sigmoid diverticulosis coli without diverticulitis. No bowel obstruc tion. APPENDIX: Normal appendix. LYMPH NODES: No lymphadenopathy. MUSCULOSKELETAL: No acute or suspicious osseous abnormality. ADDITIONAL FINDINGS: None. IMPRESSION: Chronic pancreatitis. Moderate sigmoid diverticulosis coli without diverticulitis.
--- NOTE | 2024-10-11 09:34 | P.HP ---
Certification for Inpatient Patient admitted to: Inpatient With expected LOS: >2 Midnights Patient will require the following post-hospital care: None Practitioner: I am a practitioner with admitting privileges, knowledge of patient current condition, hospital course, and medical plan of care. Services: Services provided to patient in accordance with Admission requirements found in Title 42 Section 412.3 of the Code of Federal Regulations Patient History Date of Service: 10/11/24 Reason for admission: Acute pancreatitis History of Present Illness: 49-year-old male with history of chronic pancreatitis, insulin-dependent diabetes, hyperlipidemia, GERD presents the emergency department chief complaint of upper abdominal pain. He reports he had some mild pain throughout the day yesterday but severe pain starting around midnight last night. He has had multiple episodes of pancreatitis in the past. Patient evaluated in the emergency department his labs were significant for a lipase of 497 triglycerides 272 glucose initially 588 sodium 132 anion gap of 10 white blood cell count within normal limits CT of the abdomen pelvis was performed and showed chronic pancreatitis findings. Patient with severe abdominal pain, upper abdominal tenderness, elevated lipase and CT showing findings of chronic pancreatitis, suspect acute on chronic pancreatitis. Patient will be admitted for further management. Allergies No Known Allergies Allergy (Verified 10/15/21 03:43) Home Medications: Metformin HCl 1,000 mg PO BID 02/09/24 Atorvastatin Calcium [Lipitor] 40 mg PO BEDTIME #30 tab 02/22/24 Hydrocodone 10/APAP 325 [[place] 10/325*] 1 tab PO Q6H PRN #30 tab 02/22/24 Insulin Glargine,Hum.rec.anlog [Semglee] 36 unit SQ DAILY #2 vial 02/22/24 Semaglutide [Rybelsus] 14 mg PO DAILY #30 tab 02/22/24 gemfibroziL [Lopid*] 600 mg PO BID #60 tab 02/22/24 - Past Medical/Surgical History Diabetic: Yes -: pancreatitis -: hyperlipidemia -: Insulin Dependent T2D -: fatty liver -: Hypertriglyceridemia -: gerd -: Cholecystectomy -: Hernia sx -: vasectomy Psychosocial/ Personal History: 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 lives with his - Family History Sister -: Diabetes, Cancer Mother -: Diabetes Brother -: GI disease, Diabetes Notes: Pancreatitis - Social History Alcohol use: No CD- Drugs: No Caffeine use: No Place of Residence: Home Review of Systems 10-point ROS is otherwise unremarkable Gastrointestinal: Nausea, Vomiting, Abdominal Pain Physical Examination - Physical Exam General: Alert, In no apparent distress, Oriented x3 HEENT: Atraumatic, PERRLA, EOMI Neck: Supple, 2+ carotid pulse no bruit, No LAD Respiratory: Clear to auscultation bilaterally, Normal air movement Cardiovascular: Regular rate/rhythm, Normal S1 S2 Gastrointestinal: Normal bowel sounds, Tenderness (Moderate epigastric/left upper quadrant tenderness) Musculoskeletal: No tenderness Integumentary: No rashes Neurological: Normal speech, Normal strength at 5/5 x4 extr, Normal affect - Studies Laboratory Data (last 24 hrs) 10/11/24 10/11/24 10/11/24 06:57 06:57 06:57 WBC 7.70 Hgb 13.8 Hct 39.3 L Plt Count 210 PT 10.5 INR 0.93 Sodium 132 L Potassium 5.3 H BUN 21 H Creatinine 1.00 Glucose 588 H* Magnesium 2.3 Total Bilirubin 0.8 AST 47 H ALT 35 Alkaline Phosphatase 96 Triglycerides 272 H Cholesterol 84 HDL Cholesterol 22 L Cholesterol/HDL Ratio 3.82 Lipase 497 H 10/11/24 06:22 WBC Hgb Hct Plt Count PT INR Sodium Potassium BUN Creatinine Glucose Magnesium Total Bilirubin AST ALT Alkaline Phosphatase Triglycerides Cancelled Cholesterol Cancelled HDL Cholesterol Cancelled Cholesterol/HDL Ratio Cancelled Lipase Assessment and Plan - Plan Assessment: Acute on chronic pancreatitis Diabetes mellitus type 2insulin-dependent with hyperglycemia Hyperlipidemia/hypertriglyceridemia Fatty liver Plan: Acute on chronic pancreatitis N.p.o. aside from sips of water and ice chips Continuous IV fluids As needed pain medications and antiemetics History of cholecystectomy, denies alcohol use Monitor CMP and lipase daily Diabetes mellitus type 2insulin-dependent with hyperglycemia Every 6 hours Accu-Chek while n.p.o. Sliding scale insulin Resume long-acting insulin and carb consistent diet when tolerating p.o. Hyperlipidemia/hypertriglyceridemia Fatty liver Triglycerides 272 Resume home medications when tolerating p.o. DVT PPX: Lovenox Code status: Full code Discharge Plan: Home Plan to discharge in: Greater than 2 days - Advance Directives Does patient have a Living Will: No Does patient have a Durable POA for Healthcare: No - Code Status/Comfort Care Code Status Assessed: Yes (Full code) Critical Care: No Time Spent Managing Pts Care (In Minutes): 69
[2024-10-11] MEDS: Ringers Lactate 1,000 ML IV SCH (11:35)
[2024-10-11] MEDS: HYDROMORPHONE HCL 1 MG/ML INJ IV PRN (11:35)
[2024-10-11] MEDS: INSULIN REGULAR (HUMAN) 100 UNIT/ML SQ SCH (12:56)
[2024-10-11] MEDS: NA CHLORIDE 0.9% 1,000 ML IV SCH (12:56)
[2024-10-11] MEDS: ONDANSETRON 4 MG/2 ML VIAL IV PRN (19:54)
[2024-10-12 07:08] LABS: Absolute Lymphocytes (CBC) 0.8 K/uL (0.7-4.9); Hematocrit 34.4 % (39.6-49.0); Hemoglobin 12.5 g/dL (13.6-17.9); MCH 30.1 pg (27.0-35.0); MCHC 36.2 g/dL (32.0-36.0); MCV 83.1 fL (80-100); MPV 10.7 fL (7.6-11.3); Nucleated RBC Absolute Count 0.0 (0-0); Nucleated Red Blood Cells % 0.2 % (0-0); RBC Red Blood Cell Count 4.14 M/uL (4.33-5.43); White Blood Count 9.60 thou/uL (4.3-10.9)
[2024-10-12 08:00] LABS: ALT/SGPT 27.0 U/L (16-61); Albumin 2.8 g/dL (3.4-5.0); Albumin/Globulin Ratio 0.7 (1.1-1.8); Alkaline Phosphatase 81.0 U/L (45-117); BUN Blood Urea Nitrogen 15.0 mg/dL (7-18); Globulin 3.9 g/dL (2.3-3.5); Glucose Level 252.0 mg/dL (74-106); Lipase 109.0 U/L (13-75)
[2024-10-12 08:10] LABS: AST/SGOT 28.0 U/L (15-37); Anion Gap 16.3 mEq/L (5.0-15.0); Magnesium 1.9 mg/dL (1.6-2.4)
[2024-10-12] MEDS: ENOXAPARIN 40 MG/0.4 ML SQ SCH (08:26)
[2024-10-12] MEDS ORDERED: GLUCAGON 1 MG/VIAL IM PRN (10:24)
[2024-10-12] MEDS ORDERED: D50W 25 GM/50 ML SYRINGE IV PRN (10:24)
[2024-10-12 11:33] LABS: Differential Total Cells Count 100; Segmented Neutrophils 83 % (40-80)
[2024-10-12 11:34] LABS: Blood Morphology Comment NOT SEEN (NOT SEEN)
[2024-10-12] MEDS: INSULIN REGULAR, HUMAN 100 UNIT in NA CHLORIDE 0.9% 100 ML IV SCH (12:33)
--- NOTE | 2024-10-12 16:31 | P.PN ---
Date of Service: 10/12/24 Subjective Awake, still c/o pain to LUQ Triglycerides increased >3,000, transferred to ICU for insulin gtt Will monitor ROS 10 point ROS as noted above, otherwise negative Physical Exam General: Alert and Oriented x3, NAD HEENT: Atraumatic Neck: Supple Respiratory: Clear BBS, Normal air movement, on RA Cardiovascular: Regular rate/rhythm, Normal S1 S2 Gastrointestinal: Normal bowel sounds, Tenderness (Moderate epigastric/left upper quadrant tenderness) Musculoskeletal: No tenderness Neurological: Normal speech, Normal strength at 5/5 x4 extr, Normal affect Vitals Reviewed Assessment: Acute on chronic pancreatitis Diabetes mellitus type 2insulin-dependent with hyperglycemia Hyperlipidemia/hypertriglyceridemia Fatty liver Plan: Acute on chronic pancreatitis Hyperlipidemia/hypertriglyceridemia Fatty liver Triglycerides 272 increased to >3,000 Resume home medications when tolerating p.o. N.p.o. aside from sips of water and ice chips Continuous IV fluids As needed pain medications and antiemetics History of cholecystectomy, denies alcohol use Monitor CMP and lipase daily Insulin gtt started, BMP and triglycerides to be checked at 3 PM and again in the a.m. Diabetes mellitus type 2insulin-dependent with hyperglycemia Every 6 hours Accu-Chek while n.p.o. Sliding scale insulin Resume long-acting insulin and carb consistent diet when tolerating p.o. DVT PPX: Lovenox Code status: Full code Discharge Plan: Home Plan to discharge in: Greater than 2 days Time Spent Managing Pts Care (In Minutes): 35
[2024-10-12 16:34] LABS: Anion Gap 14.2 mEq/L (5.0-15.0); BUN Blood Urea Nitrogen 12.0 mg/dL (7-18); Glucose Level 127.0 mg/dL (74-106); Potassium 4.2 mEq/L (3.5-5.1)
[2024-10-12] MEDS: D5W 1,000 ML IV SCH (17:25)
[2024-10-13 05:13] LABS: Absolute Lymphocytes (CBC) 1.1 K/uL (0.7-4.9); Hematocrit 33.6 % (39.6-49.0); Hemoglobin 11.6 g/dL (13.6-17.9); MCH 28.7 pg (27.0-35.0); MCHC 34.4 g/dL (32.0-36.0); MCV 83.3 fL (80-100); MPV 9.9 fL (7.6-11.3); Nucleated RBC Absolute Count 0.0 (0-0); Nucleated Red Blood Cells % 0.1 % (0-0); RBC Red Blood Cell Count 4.04 M/uL (4.33-5.43); White Blood Count 8.50 thou/uL (4.3-10.9)
[2024-10-13 06:40] LABS: ALT/SGPT 105.0 U/L (16-61); Albumin 2.9 g/dL (3.4-5.0); Albumin/Globulin Ratio 0.7 (1.1-1.8); Alkaline Phosphatase 190.0 U/L (45-117); Anion Gap 13.7 mEq/L (5.0-15.0); BUN Blood Urea Nitrogen 11.0 mg/dL (7-18); Globulin 4.2 g/dL (2.3-3.5); Glucose Level 158.0 mg/dL (74-106); Lipase 71.0 U/L (13-75)
[2024-10-13 06:45] LABS: AST/SGOT 197.0 U/L (15-37); Magnesium 1.9 mg/dL (1.6-2.4); Potassium 3.7 mEq/L (3.5-5.1)
[2024-10-13] MEDS ORDERED: KCL 20 MEQ/100 mL IVPB 20 MEQ/100 ML BAG IV SCH (07:00)
[2024-10-13] MEDS: POTASSIUM 25 MEQ EFFERV TAB PO ONE ×2 (07:19→17:54)
--- NOTE | 2024-10-13 15:45 | P.PN ---
Date of Service: 10/13/24 Subjective c/o some abdominal pain with CLD trial Triglycerides decreasing but remaining >1000 will remain in ICU for continued insulin gtt ROS 10 point ROS as noted above, otherwise negative Physical Exam General: AAO x3, NAD Neck: Supple Respiratory: Symmetrical chest wall movement, on RA Cardiovascular: Regular rate/rhythm, Normal S1 S2 Gastrointestinal: Normal bowel sounds, Tenderness (Moderate epigastric/left upper quadrant tenderness) Musculoskeletal: No tenderness Neurological: Normal speech, Normal strength at 5/5 x4 extr, Normal affect Vitals Reviewed Assessment: Acute on chronic pancreatitis Diabetes mellitus type 2insulin-dependent with hyperglycemia Hyperlipidemia/hypertriglyceridemia Fatty liver Plan: Acute on chronic pancreatitis Hyperlipidemia/hypertriglyceridemia Fatty liver Triglycerides trend 272/ [id number]/2527/1366 Lipase normal today Resume home medications when tolerating p.o. CLD trial Continuous IV fluids As needed pain medications and antiemetics History of cholecystectomy, denies alcohol use Continue Insulin gtt Monitor BMP and triglycerides to be checked at 3 PM and daily Diabetes mellitus type 2insulin-dependent with hyperglycemia Every 6 hours Accu-Chek while n.p.o. Sliding scale insulin Resume long-acting insulin and carb consistent diet when tolerating p.o. DVT PPX: Lovenox Code status: Full code Discharge Plan: Home Plan to discharge in: Greater than 2 days Time Spent Managing Pts Care (In Minutes): 40
[2024-10-13 16:25] LABS: Anion Gap 11.1 mEq/L (5.0-15.0); BUN Blood Urea Nitrogen 9.0 mg/dL (7-18); Glucose Level 128.0 mg/dL (74-106)
[2024-10-13 16:27] LABS: Potassium 3.1 mEq/L (3.5-5.1)
[2024-10-13] MEDS: KCL 20 MEQ/100 mL IVPB 20 MEQ/100 ML BAG IV SCH (18:18)
[2024-10-13] MEDS: INSULIN REGULAR (HUMAN) 100 UNIT/ML SQ SCH (21:00)
[2024-10-14 05:32] LABS: Absolute Lymphocytes (CBC) 1.1 K/uL (0.7-4.9); Hematocrit 33.2 % (39.6-49.0); Hemoglobin 11.5 g/dL (13.6-17.9); MCH 28.7 pg (27.0-35.0); MCHC 34.5 g/dL (32.0-36.0); MCV 83.4 fL (80-100); MPV 9.4 fL (7.6-11.3); Nucleated RBC Absolute Count 0.0 (0-0); Nucleated Red Blood Cells % 0.1 % (0-0); RBC Red Blood Cell Count 3.99 M/uL (4.33-5.43); White Blood Count 4.70 thou/uL (4.3-10.9)
[2024-10-14 05:53] LABS: ALT/SGPT 73.0 U/L (16-61); AST/SGOT 51.0 U/L (15-37); Albumin 2.5 g/dL (3.4-5.0); Albumin/Globulin Ratio 0.6 (1.1-1.8); Alkaline Phosphatase 183.0 U/L (45-117); Anion Gap 14.2 mEq/L (5.0-15.0); BUN Blood Urea Nitrogen 9.0 mg/dL (7-18); Globulin 4.0 g/dL (2.3-3.5); Glucose Level 199.0 mg/dL (74-106); Lipase 28.0 U/L (13-75); Magnesium 1.7 mg/dL (1.6-2.4); Potassium 4.2 mEq/L (3.5-5.1)
[2024-10-14] MEDS: MAGNESIUM SULFATE 1 gm IVPB 1 GM/100 ML BAG IV ONE (06:08)
[2024-10-14] MEDS: FENOFIBRATE 160 MG TAB PO SCH (08:16)
[2024-10-14] MEDS ORDERED: INSULIN REGULAR (HUMAN) 100 UNIT/ML IV SCH (09:00)
[2024-10-14] MEDS: D5W 1,000 ML IV SCH (09:33)
--- NOTE | 2024-10-14 15:47 | P.PN ---
Date of Service: 10/14/24 Subjective Continues with n/v, will return to NPO lipase normal and triglycerides improved ROS 10 point ROS as noted above, otherwise negative Physical Exam General: oriented x3, NAD Respiratory: nonlabored breathing, on RA Cardiovascular: Regular rate and rhythm, Normal S1 S2 Gastrointestinal: Normal bowel sounds, Tenderness (Moderate epigastric/left upper quadrant tenderness) Musculoskeletal: No tenderness Neurological: Normal speech, Normal strength at 5/5 x4 extr, Normal affect Vitals Reviewed Assessment: Acute on chronic pancreatitis Diabetes mellitus type 2insulin-dependent with hyperglycemia Hyperlipidemia/hypertriglyceridemia Fatty liver Plan: Acute on chronic pancreatitis Hyperlipidemia/hypertriglyceridemia Fatty liver Triglycerides trend 272/ [id number]/772 Lipase normal Resume home medications when tolerating p.o. NPO Continuous IV fluids As needed pain medications and antiemetics History of cholecystectomy, denies alcohol use Continue Insulin gtt Monitor BMP and triglycerides to be checked at 3 PM and daily Diabetes mellitus type 2insulin-dependent with hyperglycemia Every 6 hours Accu-Chek while n.p.o. Sliding scale insulin Resume long-acting insulin and carb consistent diet when tolerating p.o. DVT PPX: Lovenox Code status: Full code Discharge Plan: Home Plan to discharge in: Greater than 2 days Time Spent Managing Pts Care (In Minutes): 42
[2024-10-14 22:16] VITALS: BMI 28.0
[2024-10-15 05:21] LABS: Absolute Lymphocytes (CBC) 0.9 K/uL (0.7-4.9); Hematocrit 31.9 % (39.6-49.0); Hemoglobin 10.9 g/dL (13.6-17.9); MCH 28.2 pg (27.0-35.0); MCHC 34.2 g/dL (32.0-36.0); MCV 82.5 fL (80-100); MPV 9.0 fL (7.6-11.3); Nucleated RBC Absolute Count 0.0 (0-0); Nucleated Red Blood Cells % 0.2 % (0-0); RBC Red Blood Cell Count 3.87 M/uL (4.33-5.43); White Blood Count 3.50 thou/uL (4.3-10.9)
[2024-10-15 05:41] LABS: ALT/SGPT 49.0 U/L (16-61); AST/SGOT 24.0 U/L (15-37); Albumin 2.4 g/dL (3.4-5.0); Albumin/Globulin Ratio 0.6 (1.1-1.8); Alkaline Phosphatase 148.0 U/L (45-117); Anion Gap 8.3 mEq/L (5.0-15.0); BUN Blood Urea Nitrogen 8.0 mg/dL (7-18); Globulin 4.0 g/dL (2.3-3.5); Glucose Level 166.0 mg/dL (74-106); Magnesium 1.8 mg/dL (1.6-2.4); Potassium 3.3 mEq/L (3.5-5.1)
[2024-10-15] MEDS: MAGNESIUM SULFATE 1 gm IVPB 1 GM/100 ML BAG IV ONE (07:24)
[2024-10-15] MEDS: KCL 20 MEQ/100 mL IVPB 20 MEQ/100 ML BAG IV SCH (07:24)
[2024-10-15] MEDS: INSULIN REGULAR (HUMAN) 100 UNIT/ML SQ SCH (11:32)
--- NOTE | 2024-10-15 19:11 | P.PN ---
Date of Service: 10/15/24 Subjective reports some abdominal pain Advancing diet to CLD today, will evaluate in the AM ROS 10 point ROS as noted above, otherwise negative Physical Exam General: alert and oriented x3, NAD Respiratory: nonlabored breathing, on RA Cardiovascular: RRR, Normal S1 S2 Gastrointestinal: Normal bowel sounds, Tenderness left upper quadrant tenderness Musculoskeletal: No tenderness Neurological: Normal speech, Normal strength at 5/5 x4 extr, Normal affect Vitals Reviewed Assessment: Acute on chronic pancreatitis Diabetes mellitus type 2insulin-dependent with hyperglycemia Hyperlipidemia/hypertriglyceridemia Fatty liver Plan: Acute on chronic pancreatitis Hyperlipidemia/hypertriglyceridemia Fatty liver Triglycerides trend 272/ 3128/2527/1366/989/772 Lipase normal Resume home medications when tolerating p.o. CLD, monitor abdominal pain Continuous IV fluids As needed pain medications and antiemetics History of cholecystectomy, denies alcohol use Continue Insulin gtt Monitor BMP and triglycerides daily Diabetes mellitus type 2insulin-dependent with hyperglycemia Every 6 hours Accu-Chek while n.p.o. Sliding scale insulin Resume long-acting insulin and carb consistent diet when tolerating p.o. DVT PPX: Lovenox Code status: Full code Discharge Plan: Home Plan to discharge in: Greater than 2 days Time Spent Managing Pts Care (In Minutes): 36
[2024-10-16 05:29] LABS: Absolute Lymphocytes (CBC) 1.0 K/uL (0.7-4.9); Hematocrit 32.3 % (39.6-49.0); Hemoglobin 10.9 g/dL (13.6-17.9); MCH 28.1 pg (27.0-35.0); MCHC 33.8 g/dL (32.0-36.0); MCV 83.0 fL (80-100); MPV 9.1 fL (7.6-11.3); Nucleated RBC Absolute Count 0.0 (0-0); Nucleated Red Blood Cells % 0.2 % (0-0); RBC Red Blood Cell Count 3.89 M/uL (4.33-5.43); White Blood Count 3.60 thou/uL (4.3-10.9)
[2024-10-16 06:03] LABS: ALT/SGPT 40 U/L (16-61); Albumin 2.5 g/dL (3.4-5.0); Albumin/Globulin Ratio 0.7 (1.1-1.8); Alkaline Phosphatase 133 U/L (45-117); Anion Gap 11.1 mEq/L (5.0-15.0); BUN Blood Urea Nitrogen 8 mg/dL (7-18); Globulin 3.6 g/dL (2.3-3.5); Glucose Level 199 mg/dL (74-106); Magnesium 1.6 mg/dL (1.6-2.4); Potassium 4.1 mEq/L (3.5-5.1)
[2024-10-16 06:07] LABS: AST/SGOT < 10 U/L (15-37)
[2024-10-16] MEDS: MAGNESIUM SULFATE 1 gm IVPB 1 GM/100 ML BAG IV ONE (06:19)
[2024-10-16 07:57] VITALS: O2SAT 98
[2024-10-16] MEDS: AMYLASE/LIPASE/PROTEASE CAP PO SCH (11:08)
--- NOTE | 2024-10-16 17:55 | P.PN ---
Date of Service: 10/16/24 Subjective Continues to c/o pain when eating CLD, not tolerating started Creon, will reassess in the morning Downgrade ROS 10 point ROS as noted above, otherwise negative Physical Exam General: Sleeping, awakens to voice, oriented x3, NAD Respiratory: nonlabored breathing, on RA Cardiovascular: NSR, Normal S1 S2 Gastrointestinal: Normal bowel sounds, Tenderness left upper quadrant tenderness Musculoskeletal: No tenderness Neurological: Normal speech, Normal strength at 5/5 x4 extr, Normal affect Vitals Reviewed Assessment: Acute on chronic pancreatitis Diabetes mellitus type 2insulin-dependent with hyperglycemia Hyperlipidemia/hypertriglyceridemia Fatty liver Plan: Acute on chronic pancreatitis Hyperlipidemia/hypertriglyceridemia Fatty liver Triglycerides trend 272/ 3128/2527/1366/989/772/<500 Lipase normal Resume home medications when tolerating p.o. CLD,Still with abdominal pain Continuous IV fluids As needed pain medications and antiemetics History of cholecystectomy, denies alcohol use Continue Insulin gtt Monitor BMP and triglycerides daily Diabetes mellitus type 2insulin-dependent with hyperglycemia Every 6 hours Accu-Chek while n.p.o. Sliding scale insulin Resume long-acting insulin and carb consistent diet when tolerating p.o. DVT PPX: Lovenox Code status: Full code Discharge Plan: Home Plan to discharge in: Greater than 2 days Time Spent Managing Pts Care (In Minutes): 45
[2024-10-17 08:35] LABS: Anion Gap 12.5 mEq/L (5.0-15.0); BUN Blood Urea Nitrogen 5.0 mg/dL (7-18); Glucose Level 175.0 mg/dL (74-106); Lipase 41.0 U/L (13-75); Magnesium 1.5 mg/dL (1.6-2.4); Potassium 3.5 mEq/L (3.5-5.1)
[2024-10-17 09:10] VITALS: TEMP 98.1
--- NOTE | 2024-10-17 10:03 | P.DS ---
Admission Date: 10/11/24 Discharge Date: 10/17/24 Disposition: ROUTINE DISCHARGE Discharge Condition: GOOD Reason for Admission: Acute pancreatitis Brief History of Present Illness: Diagnosis Acute on chronic pancreatitis Diabetes mellitus type 2insulin-dependent with hyperglycemia Hyperlipidemia/hypertriglyceridemia Fatty liver HPI 10/11/2024 49-year-old male with history of chronic pancreatitis, insulin-dependent diabetes, hyperlipidemia, GERD presents the emergency department chief complaint of upper abdominal pain. He reports he had some mild pain throughout the day yesterday but severe pain starting around midnight last night. He has had multiple episodes of pancreatitis in the past. Patient evaluated in the emergency department his labs were significant for a lipase of 497 triglycerides 272 glucose initially 588 sodium 132 anion gap of 10 white blood cell count within normal limits CT of the abdomen pelvis was performed and showed chronic pancreatitis findings. Patient with severe abdominal pain, upper abdominal tenderness, elevated lipase and CT showing findings of chronic pancreatitis, suspect acute on chronic pancreatitis. Patient will be admitted for further management. Hospital Course: Patient was admitted for pancreatitis, the next morning triglycerides were markedly elevated, he was transferred to the ICU for insulin drip. He remained on the insulin drip for 2 days for triglycerides to reduce. Lipase has returned to normal. He has tolerated aggressive IV fluids and slowly advancing diet. This is a chronic pancreatitis and will need a few more days for pain to dissipate. Patient has been started on Tricor and Creon. Sangeeta was seen on morning rounds, reports feeling better, he will need to follow-up with his PCP for continued management and refills of these medications. Physical Exam General: Alert and oriented x 3, afebrile, NAD Respiratory: nonlabored breathing, on RA Cardiovascular: NSR, Normal S1 S2 Gastrointestinal: Active bowel sounds, tenderness left upper quadrant tenderness Musculoskeletal: No tenderness Neurological: Normal speech, Normal strength at 5/5 x4 extr, Normal affect Vital Signs/Physical Exam: Temp Pulse Resp BP Pulse Ox 98.1 F 68 18 127/68 96 10/17/24 08:00 10/17/24 08:00 10/17/24 08:00 10/17/24 08:00 10/17/24 08:00 Laboratory Data at Discharge: WBC 3.60 thou/uL (4.3-10.9) L 10/16/24 05:13 Hgb 10.9 g/dL (13.6-17.9) L 10/16/24 05:13 Hct 32.3 % (39.6-49.0) L 10/16/24 05:13 Plt Count 167 thou/uL (152-406) 10/16/24 05:13 PT 10.5 SECONDS (10-13.0) 10/11/24 06:57 INR 0.93 10/11/24 06:57 Sodium 139 mEq/L (136-145) 10/17/24 07:50 Potassium 3.5 mEq/L (3.5-5.1) D 10/17/24 07:50 BUN 5 mg/dL (7-18) L 10/17/24 07:50 Creatinine 0.55 mg/dL (0.70-1.30) L 10/17/24 07:50 Glucose 175 mg/dL (74-106) H 10/17/24 07:50 Phosphorus 2.6 mg/dL (2.5-4.9) 10/17/24 07:50 Magnesium 1.5 mg/dL (1.6-2.4) L 10/17/24 07:50 Total Bilirubin 0.6 mg/dL (0.2-1.0) 10/16/24 05:13 AST < 10 U/L (15-37) L 10/16/24 05:13 ALT 40 U/L (16-61) 10/16/24 05:13 Alkaline Phosphatase 133 U/L (45-117) H 10/16/24 05:13 Triglycerides 360 mg/dL (<150) H 10/17/24 07:50 Cholesterol 84 mg/dL (<200) 10/11/24 06:57 HDL Cholesterol 22 mg/dL (40-60) L 10/11/24 06:57 Cholesterol/HDL Ratio 3.82 10/11/24 06:57 Lipase 41 U/L (13-75) 10/17/24 07:50 Home Medications: Metformin HCl 1,000 mg PO BID 02/09/24 Atorvastatin Calcium [Lipitor] 40 mg PO BEDTIME #30 tab 02/22/24 Hydrocodone 10/APAP 325 [[place] [address]*] 1 tab PO Q6H PRN #30 tab 02/22/24 Insulin Glargine,Hum.rec.anlog [Semglee] 36 unit SQ DAILY #2 vial 02/22/24 Semaglutide [Rybelsus] 14 mg PO DAILY #30 tab 02/22/24 gemfibroziL [Lopid*] 600 mg PO BID #60 tab 02/22/24 Fenofibrate [Tricor*] 160 mg PO DAILY 30 Days #30 tab 10/17/24 Lipase/Protease/Amylase [Creon 10 EC Capsule] 249 mg PO DAILY 30 Days #30 cap 10/17/24 Ondansetron [Zofran] 4 mg PO Q6H PRN 3 Days #12 tab 10/17/24 New Medications: Lipase/Protease/Amylase [Creon 10 EC Capsule] 249 mg PO DAILY 30 Days #30 cap Fenofibrate [Tricor*] 160 mg PO DAILY 30 Days #30 tab Ondansetron [Zofran] 4 mg PO Q6H PRN 3 Days #12 tab PRN Reason: Nausea / Vomiting Physician Discharge Instructions: 1. Please call and schedule a follow-up appointment with your PCP in 3-5 days - Please follow-up with your PCP for medication refills/adjustments -Starting Tricor and Creon daily 2. Continue full liquid diet, advance slowly and as tolerated 3. activity restrictions do not lift greater than 10 pounds for 3 days 4. Return to the ED if symptoms worsen New medications Tricor 160 mg daily Creon 1 capsule daily Diet: FLD Activity: Ad stanley Followup: Erwin Merrill DO, DO [Primary Care Provider] -
[2024-10-17] MEDS: HYDROCODONE/APAP 10/325 TAB PO PRN (10:43)
[2024-10-17 12:29] VITALS: BP 129/78
== END 2024-10-17 12:50 | disposition home or self-care (01) | DRG 440 ==
LOC: ER 05:50 → ERHOLD 09:13 → 2ND 10:22 → 3RD-ICU 10-12 12:22 → 2ND 10-16 18:26
PROVIDERS: ADMIT Hospitalist; ATTEND Internal Medicine
DX: K85.90 Acute pancreatitis without necrosis or infection, unspecified (principal); E86.0 Dehydration; E66.9 Obesity, unspecified; K86.1 Other chronic pancreatitis; E78.1 Pure hyperglyceridemia; E78.5 Hyperlipidemia, unspecified; K76.0 Fatty (change of) liver, not elsewhere classified; E11.65 Type 2 diabetes mellitus with hyperglycemia; K21.9 Gastro-esophageal reflux disease without esophagitis; Z79.4 Long term (current) use of insulin; Z98.52 Vasectomy status; Z90.49 Acquired absence of other specified parts of digestive tract; Z68.27 Body mass index [BMI] 27.0-27.9, adult; Z79.84 Long term (current) use of oral hypoglycemic drugs; Z79.899 Other long term (current) drug therapy
CPT/HCPCS: 36415; 71045; 74177; 80048; 80053; 80061; 80076; 81003; 82947; 83690; 83735; 83880; 84100; 84132; 84478; 84484; 85025; 85610; 96365; 96372; 96375; 99284; J1171; J1650; J1815; J2405; J2470; J3475; J3480; J7030; J7120; Q9967